=== PATIENT | female | born 1965 | race Caucasian/White ===

== ENCOUNTER 2017-10-18 07:28 | Day surgery (SDC) | payer OTHER, SELFPAY ==
[2017-10-18 07:49] VITALS: BP 124/98; PULSE 85; RESP 16; TEMP 36.4; O2SAT 96; BMI 21.9
--- NOTE | 2017-10-18 09:00 | DCINST_ITS ---
Allergies/Adverse Reactions: Allergies No Known Allergies Allergy (Verified 10/17/17 14:44) Medications to take at Discharge Naproxen Sodium [Aleve] 220 mg PO PRN PRN 10/17/17 Hydrocodone Bitart/Apap 5-325 [Chappell 5MG-325MG] 1 tablet PO Q6H PRN PRN #10 tablet 10/18/17 The following prescriptions were given: Hydrocodone Bitart/Apap 5-325 [Chappell 5MG-325MG] 1 tablet PO Q6H PRN PRN #10 tablet PRN Reason: Pain Primary Care Physician: Care Physician,No Primary [Primary Care Provider] -
[2017-10-18] MEDS: Cefazolin 2 GM in 0.9% Normal Saline 100 ML IV (09:22)
[2017-10-18] MEDS: Bupivacaine Mpf 0.5% 30 ML VIAL (09:52)
--- NOTE | 2017-10-18 10:04 | OP.PCM_ITS ---
Problem List (1) Primary cancer of left female breast Status: Acute Report of Operation Date of Procedure: 10/18/17 Pre-Operative Diagnosis: Metastatic left breast cancer Post-Operative Diagnosis: Metastatic left breast cancer Surgery/Procedure Performed:: Right internal jugular 6 Tamazight PowerPort placement Description of Surgical Findings:: Timeout and informed consent was obtained. 52-year-old female was taken out from placement table. Monitored anesthesia care was provided. Ancef 2 g given intravenous preoperatively. The right neck and chest were sterilely prepped and draped. Ultrasound was used to identify the right internal jugular vein. Under ultrasound guidance 1% lidocaine mixed 50-50 with 0.5% marcaine was used as local anesthetic. Throughout the procedure total 25 cc was used. Local was instilled. Micropuncture needle was inserted. Micropuncture wire inserted. Micropuncture sheath inserted. No 3 5 J-wire was inserted. Local was instilled down upon the chest wall. And an appropriate position midclavicular line second intercostal space transverse incision was created. Electrocautery was used to make a subcutaneous pocket. The tunnel tubing was then tunneled from the chest to the neck. Then the sheath dilator was placed over the wire and confirmed with fluoroscopy. The wire and dilator were removed. The catheter was advanced through the sheath. The sheath was split. The cath was positioned at the SVC atrial junction. The catheter was amputated to length and connected the port secured to the port attachment device. The port was placed within the pocket and secured there with interrupted 2-0 silk. The port site was closed with interrupted 3-0 Vicryl subdermal stitches. The neck was closed with interrupted 5-0 Vicryl subdermal stitches. Steri-Strips Telfa and OpSite dressings applied. Sponge instrument and needle counts were reported the surgeon be correct. Blood loss was minimal. She tolerated the procedure well. She was taken to the recovery or insect condition without apparent complication. Stat portable chest x-ray is pending. Bran Granados M.D., F.A.C.S.
[2017-10-18 10:09] VITALS: BP 124/98; BP 125/97; PULSE 75; RESP 16; TEMP 36.4; O2SAT 94
--- NOTE | 2017-10-18 10:10 | RAD_ITS ---
STUDY: X-RAY CHEST REASON FOR EXAM: Female, 52 years old. Port placement. TECHNIQUE: Single AP portable view of the chest. COMPARISON: Comparison is made with prior study dated October 09, 2017. FINDINGS: A right-sided portacatheter is in situ. The tip is in the proximal portion of the superior vena cava. Stable mild increased markings in the right middle lobe. Stable elevation of the right minor fissure. There is no demonstrated pleural abnormality. Normal size heart. Normal mediastinum and anjel. Normal visualized pulmonary arteries. There is atherosclerotic tortuosity of the aortic arch and descending thoracic aorta. Normal visualized thoracic spine. Normal visualized ribs, clavicles, and shoulders. There is no demonstrated abnormality of the visualized soft tissue structures of the upper abdomen. RAD/Chest 1 View (Portable) IMPRESSION: The tip of the right portacatheter is in the proximal portion of the superior vena cava. Electronically Signed: Edgar Flannery MD at 11:18 EST Tel [phone], Service support ,
[2017-10-18 10:15] VITALS: BP 111/88; BP 124/98; PULSE 75; RESP 16; O2SAT 95
[2017-10-18 10:20] VITALS: BP 117/85; BP 124/98; PULSE 72; RESP 17; O2SAT 94
[2017-10-18 10:23] VITALS: BP 119/78; BP 124/98; PULSE 69; RESP 16; TEMP 36.6; O2SAT 95
[2017-10-18 11:52] VITALS: BP 124/98
== END 2017-10-18 11:52 | disposition home or self-care (01) ==
LOC: SDC 07:28 → AC 07:29
PROVIDERS: Visit Provider Surgery
PROC: (CPT 36571; principal; 2017-10-18 09:00)
DX: C50.012 Malignant neoplasm of nipple and areola, left female breast (principal); C77.3 Secondary and unspecified malignant neoplasm of axilla and upper limb lymph nodes; Z45.2 Encounter for adjustment and management of vascular access device; F17.210 Nicotine dependence, cigarettes, uncomplicated; Z87.01 Personal history of pneumonia (recurrent); Z80.3 Family history of malignant neoplasm of breast
CPT/HCPCS: 00532; 36571; 71045; 77001; J7120; C1788

== ENCOUNTER → 2017-10-20 13:31 | Outpatient (CLI) | payer OTHER, SELFPAY ==
--- NOTE | 2017-10-20 13:34 | ECHOD_ITS ---
Reason For Study: Neoplasm-Pre Chemo Procedure This was a 2D Doppler, Color Flow transthoracic echocardiogram. Exam performed in department. Left Ventricle Normal size and thickness. The estimated ejection fraction is 65 %. Stage 1 diastolic dysfunction. No regional wall motion abnormalities noted. Right Ventricle Normal size and thickness. Normal systolic function. Atria Normal left atrium. Normal right atrium. Normal atrial septum. Mitral Valve The mitral valve is structurally normal. No prolapse or stenosis seen. Tricuspid Valve Normal tricuspid valve. Trivial tricuspid valve insufficiency. Right ventricular systolic pressure estimated to be 33 mmHg. Aortic Valve Trisinus/trileaflet aortic valve. Pulmonic Valve Normal pulmonic valve. Great Vessels Normal aortic root. Normal arch. Normal inferior vena cava. Inferior vena cava collapse with sniff. Pericardium/Pleural No pericardial effusion. MMode/2D Measurements & Calculations LVIDd: 3.4 cm IVSd: 1.1 cm Ao root diam: 2.7 cm LVIDs: 1.9 cm LVPWd: 1.2 cm LA dimension: 3.1 cm RVDd: 3.2 cm FS: 44.2 % LAV(MOD-bp): 36.7 ml LVAd ap4: 27.0 cm2 SV(MOD-sp4): 51.6 ml LAV(MOD-bp) Indexed: 23.1 ml/m2 EDV(MOD-sp4): 77.3 ml LAV(MOD-sp2): 41.6 ml EDV(sp4-el): 80.0 ml LAV(MOD-sp4): 30.5 ml LVAs ap4: 13.3 cm2 ESV(MOD-sp4): 25.8 ml ESV(sp4-el): 23.8 ml EF(MOD-sp4): 66.7 % EF(sp4-el): 70.2 % SV(sp4-el): 56.2 ml LA A4 area: 13.3 cm2 RA A4 area: 12.8 cm2 Time Measurements MV dec time: 0.27 sec Doppler Measurements & Calculations MV A max demetrius: 98.7 cm/sec Lat Peak E' Demetrius: 10.8 cm/sec Med Peak E' Demetrius: 40.9 cm/sec MV V2 max: 90.6 cm/sec MV P1/2t max demetrius: 70.6 cm/sec Ao V2 max: 155.9 cm/sec MV max P.3 mmHg MV P1/2t: 102.5 msec Ao max P.7 mmHg MV V2 mean: 48.1 cm/sec MV dec slope: 201.9 cm/sec2 Ao V2 mean: 98.7 cm/sec MV mean P.1 mmHg MVA(P1/2t): 2.1 cm2 Ao mean P.5 mmHg MV V2 VTI: 21.5 cm Ao V2 VTI: 27.1 cm LV V1 max: 124.0 cm/sec PA V2 max: 120.4 cm/sec TR max demetrius: 262.7 cm/sec LV V1 max P.1 mmHg TR max P.6 mmHg LV V1 mean P.8 mmHg LV V1 mean: 75.9 cm/sec LV V1 VTI: 23.2 cm Interpretation Summary The estimated ejection fraction is 65 %. Stage 1 diastolic dysfunction. Trivial tricuspid valve insufficiency. Right ventricular systolic pressure estimated to be 33 mmHg. There is no comparison study available. Ordering Physician: Carolina Pak Referring Physician: Carolina Pak Performed By: Chandan Weller RCS
== END ==
PROVIDERS: Visit Provider Internal Medicine Hematology & Oncology
DX: C50.912 Malignant neoplasm of unspecified site of left female breast (principal); C79.51 Secondary malignant neoplasm of bone
CPT/HCPCS: 93306

== ENCOUNTER → 2017-10-20 17:30 | Outpatient (CLI) | payer OTHER, SELFPAY ==
--- NOTE | 2017-10-20 15:05 | MRI_ITS ---
STUDY: MRI LUMBAR SPINE WITH AND WITHOUT CONTRAST REASON FOR EXAM: Female, 52 years old. Metastatic breast cancer TECHNIQUE: Standardized fat and water weighted pulse sequences were obtained in the sagittal and axial planes. 6 ml of Gadavist contrast material was administered for the contrast portion of the examination. COMPARISON: None FINDINGS: Normal lumbar lordosis. There is no substantial scoliosis. Normal conus medullaris that terminates at the L1-2 level. Diffuse osseous metastatic disease is present. Confluent lesions are T1 hypointense with mottled postcontrast enhancement. No pathologic compression fractures are seen at this time. No enhancing intracanalicular lesions are seen. No paraspinal masses are seen. Multilevel degenerative disc disease without severe central canal stenosis or evidence of en exiting nerve root impingement. Normal visualized paraspinous soft tissue structures. MRI/Spine Lumbar W/WO Contrast IMPRESSION: Diffuse osseous metastatic disease. No evidence of pathologic compression fracture. No evidence of intrathecal or epidural metastatic disease. Electronically Signed: Hebert Montano MD at 4:09 EST Tel , Service support ,
--- NOTE | 2017-10-20 15:05 | MRI_ITS ---
STUDY: MRI BRAIN WITH AND WITHOUT CONTRAST REASON FOR EXAM: Female, 52 years old. Breast cancer and metastatic disease TECHNIQUE: Standardized multiplanar fat and water weighted pulse sequences were obtained. 6 ml of Gadavist contrast material was administered intravenously for the contrast portion of the examination. COMPARISON: None. FINDINGS: Normal size of the ventricles and extra-axial spaces for the patient's age. Normal white matter tracts of the supratentorial brain. There is no evidence for recent intracranial ischemia or other cause of cytotoxic edema on diffusion weighted imaging (DWI). Normal T2* images of the brain without demonstrated susceptibility artifact. There is no demonstrated hemosiderin stain. Normal bilateral basal ganglia. Normal thalami. There is no extra-axial fluid accumulation. Normal flow voids within the major intracranial circulation suggesting patency by spin echo criteria. Normal venous enhancement. Within the right posterior internal capsule is a focal parenchymal region of enhancement as seen on series 3 image 14 measuring 3 mm consistent with focal metastatic disease. Pituitary gland is prominent and has a convex superior border. Underlying pituitary pathology (hyperplasia, adenoma, etc.) cannot be excluded. Normal tectal plate and pineal gland. Normal midbrain, jose and medulla. Multiple enhancing nodules within the bilateral cerebellar parenchyma are present with the left anterior nodule measuring 8 mm as seen on series 4 image 2 with additional enhancing nodules within the mid bilateral cerebellum as seen on series 3 image 4 and image 3. Normal basal cisterns. Normal bilateral temporal bones. Normal bilateral internal auditory canals. No demonstrated orbital abnormality, within the constraints of a routine brain study. Normal visualized paranasal sinuses. The calvarium is diffusely and abnormally T1 hypointense which could suggest underlying metastatic disease. Normal visualized soft tissue structures. Metastatic lesions are visible in the upper cervical spine with multiple areas of enhancement as seen and coronal series 4 image 14.. MRI/Brain W/WO Contrast IMPRESSION: 1. No evidence of acute intracranial bleed or ischemia. There is right posterior internal capsule 3 mm focal area of enhancement with subcentimeter multiple areas of enhancement within the bilateral cerebellum as above consistent with metastatic disease. Heterogeneous low signal within the calvarium is present which can be seen with infiltrative marrow process though no focal enhancing calvarial lesions are noted. 2. Upper cervical spine multiple areas of osseous enhancement consistent with metastatic disease. Electronically Signed: Mark Rios DO at 10:05 EST , Service support ,
--- NOTE | 2017-10-20 15:06 | MRI_ITS ---
STUDY: MRI THORACIC SPINE WITH AND WITHOUT CONTRAST REASON FOR EXAM: Female, 52 years old. Metastatic breast cancer TECHNIQUE: 6 ml of Gadavist was administered intravenously for the contrast portion of the examination. COMPARISON: None. FINDINGS: Diffuse confluent osseous metastatic disease is present. Lesions are T1 hypointense with mottled postcontrast enhancement. No acute pathologic compression fractures are seen. Several of the thoracic vertebral bodies demonstrate mild ballooning both anteriorly and posteriorly. No severe central canal stenosis. No cord signal abnormalities are seen. No evidence of cord expansion. No epidural metastatic lesions are seen. No significant thoracic disc disease or evidence of exiting thoracic nerve root impingement. A nodule is present in the subcutaneous tissues near the sternal manubrium, measuring 13 mm. MRI/Spine Thoracic W/WO Contrast IMPRESSION: Diffuse osseous metastatic disease without evidence of pathologic fracture. There is some ballooning of multiple thoracic vertebral bodies. No evidence of epidural metastatic disease or focal cord pathology. Electronically Signed: Hebert Montano MD at 4:05 EST Tel , Service support ,
--- NOTE | 2017-10-20 15:06 | MRI_ITS ---
STUDY: MRI CERVICAL SPINE WITH AND WITHOUT CONTRAST REASON FOR EXAM: Female, 52 years old. Metastatic breast cancer TECHNIQUE: Standardized fat and water weighted pulse sequences were obtained in the sagittal and axial following I.V. administration of 6 ml of Gadavist contrast material. COMPARISON: None FINDINGS: Normal foramen magnum and brainstem-cervical cord junction. Normal craniovertebral junction. Normal anterior atlantoaxial articulation. Normal odontoid process. Multiple enhancing cerebellar lesions are present compatible with metastatic disease. There is some ballooning of the T4 vertebral body on the right. There is some ballooning of the T2 vertebral body anteriorly. Normal cervical lordosis. Multiple T1 hypointense and T2 hyperintense bone lesions are present throughout the cervical spine compatible with metastatic disease. These lesions demonstrate patchy postcontrast enhancement. C2-3: Normal endplates. Normal disc height, signal and morphology. Normal central canal and intervertebral neural foramina. C3-4: Normal endplates. Normal disc height, signal and morphology. Normal central canal and intervertebral neural foramina. C4-5: Normal endplates. Normal disc height, signal and morphology. Normal central canal and intervertebral neural foramina. C5-6: Disc osteophyte complex and central disc protrusion with moderate central canal stenosis and ventral cord deformity. C6-7: Central disc protrusion with moderate central canal stenosis and ventral cord deformity. C7-T1: Mild disc osteophyte complex with mild central canal stenosis. No cord signal abnormalities are seen. Normal visualized soft tissue structures. MRI/Spine Cervical W/WO Contrast IMPRESSION: Diffuse osseous metastatic disease. Disc disease with cortical deformities at C5-6 and C6-7. No metastatic lesions are seen in the cord or epidural space. Electronically Signed: Hebert Montano MD at 3:54 EST Tel , Service support ,
== END ==
PROVIDERS: Visit Provider Nurse Practitioner Family
DX: R51 Headache (principal); C50.912 Malignant neoplasm of unspecified site of left female breast
CPT/HCPCS: 70553; 72156; 72157; 72158; A9585

== ENCOUNTER → 2017-10-23 16:16 | Outpatient (CLI) | payer OTHER, SELFPAY ==
--- NOTE | 2017-10-23 16:20 | RAD_ITS ---
STUDY: X-RAY - CERVICAL SPINE REASON FOR EXAM: Female, 52 years old. Neck pain TECHNIQUE: 5 view(s) of the cervical spine were obtained. COMPARISON: None FINDINGS: Normal anterior atlantoaxial articulation. The odontoid process is obscured by the overlying hard palate on the open mouth view. Therefore, it is not fully evaluated by plain film. Normal cervical lordosis. Normal vertebral bodies and endplates. Normal disc space heights. Normal visualized intervertebral neuroforamina. The soft tissue structures are unremarkable. RAD/Cerv Spine 2 or 3 Views IMPRESSION: The odontoid process is obscured by the overlying hard palate on the open mouth view. Therefore, it is not fully evaluated by plain film. Electronically Signed: Victor M Aleman MD at 16:36 EST , Service support ,
== END ==
PROVIDERS: Family Provider Family Medicine; PCP Family Medicine; Visit Provider Anesthesiology Pain Medicine
DX: M54.2 Cervicalgia (principal)
CPT/HCPCS: 72040

== ENCOUNTER → 2017-10-25 14:18 | Outpatient (CLI) | payer OTHER, SELFPAY ==
--- NOTE | 2017-10-25 14:24 | CT_ITS ---
STUDY: CT ABDOMEN AND PELVIS WITH CONTRAST REASON FOR EXAM: Female, 52 years old. Malignant neoplasm. Stage IV breast cancer. RADIATION DOSAGE (If Supplied By Facility): CTDIvol = ( 11.1 ) mGy, DLP = ( 347.88 ) mGycm TECHNIQUE: Transaxial images were obtained from the dome of the diaphragm to the symphysis pubis without oral contrast. 100CC ml of Isovue 300 contrast was administered. Sagittal and coronal images were reconstructed. Individualized dose optimization techniques were used for this CT. COMPARISON: CT of the chest, October 12, 2017. CT of the abdomen and pelvis, July 21, 2009. FINDINGS: And seen are mild emphysematous changes of the lungs. There is no new infiltrate or mass The visualized portions of the heart are within normal limits. Liver is normal in size contour and density. In the dome of the right liver there is a 7 mm hypodensity best seen on image 17 of series 1002. This was not seen on the prior CT and raises concern for metastatic disease. No other liver mass is a similar 5 mm hypodensity in segment 6 of the liver best seen on image 29. Again this is not identified on the prior CT. Normal gallbladder and extrahepatic biliary system. Normal spleen. Normal pancreas. Normal bilateral adrenal glands. Normal right kidney. Normal left kidney. Normal visualized stomach. Normal small intestine. Normal colon. The appendix is visualized and appears normal. There is mild atherosclerotic changes and ectasia of the aorta without aneurysm. There is no dissection. Normal inferior vena cava. Normal retroperitoneum. Normal urinary bladder. Normal uterus and ovaries. There is no pelvic lymphadenopathy. No free air or free fluid is seen within the peritoneal cavity. There is a 1.7 x 0.8 x 1.6 cm soft tissue mass in the subcutaneous left upper abdomen present on the prior study and thought to represent a sebaceous cyst. Abdominal wall is otherwise unremarkable. There is diffuse moth-eaten appearance of the visualized thoracic and lumbar spine. Similar findings are seen within the sacrum, coccyx and pelvis. Lucent areas are also seen in both proximal femora. The findings are most suspicious for metastatic disease. There is no vertebral collapse. These findings were not present on the prior abdominal CT CT/Abdomen/Pelvis W IV Cont ONLY IMPRESSION: 1. Diffuse metastatic disease of the spine and pelvis. 2. Low-attenuation lesions in the right liver. Question metastatic disease 3. Stable mass in the left abdominal wall thought to represent sebaceous cyst. 4. No other evidence of abdominal or pelvic abnormality.. Electronically Signed: Guevara Emanuel DO at 17:03 EST Tel [phone], Service support ,
== END ==
PROVIDERS: Family Provider Family Medicine; PCP Family Medicine; Visit Provider Internal Medicine Hematology & Oncology
DX: C50.912 Malignant neoplasm of unspecified site of left female breast (principal); C77.9 Secondary and unspecified malignant neoplasm of lymph node, unspecified; C79.51 Secondary malignant neoplasm of bone; K76.9 Liver disease, unspecified; R19.02 Left upper quadrant abdominal swelling, mass and lump
CPT/HCPCS: 74176; 74177; Q9967

== ENCOUNTER → 2017-10-27 08:57 | Outpatient (CLI) | payer OTHER, SELFPAY ==
[2017-10-26 10:43] VITALS: BMI 22.3
[2017-10-26 11:21] VITALS: BP 130/99; BMI 22.3
--- NOTE | 2017-10-27 | IMM_PTH ---
PATIENT: KAITY ANTUNEZ LOC: CT U#:[id number] AGE/SX: 60/F ROOM: RE10/27/[address]: Dr. Carolina Pak MD : 1965 BED: DIS: SPEC #: [id number] RECD: 10/30/17 12:59 STATUS: LEATHA REAngélica #: [id number] DELMER: 10/27/17 00:[address]: Carolina Pak DEPT: IMMUNOHISTOCHEMISTRY RECD BY: Beata Barton ENTERED: 10/30/17 13:01 SP TYPE: IMMUNO OTHR DR: No Primary Care Phys Tissues: A - Bone marrow of iliac crest Procedures: Mammoglobin (initial) CK20 (add) CK7 (add) CK8 (add) E-CAD (add) HER2 MAIDA (add) Vimentin (add) GATA3 (add) PHYSICIAN & INSTITUTION [place] [id number] SPECIMEN INFORMATION: Tissue Source: A ? Bone marrow core Clinical Info: Metastatic breast (lobular) CA Specimen Number: [id number] CPT code: 13819, 86400 x7 METHODOLOGY: Deparaffinized sections of prefer/formalin-fixed tissue or PAP/DQ stained slides are incubated with monoclonal/polyclonal antibodies/oligonucleotide probes. Localization is made via biotin free immunoperoxidase method. Appropriate controls are performed and reacted as expected. Results on target cell population are indicated in the following table: RESULTS: ANTIBODY / CLONE RESULT Block A GATA3 (L50-823) positive Mammaglobin (31A5) positive CK8 (92ibgkR12) positive Her-2neu (CB11) positive E-Cad (ECH-6) negative CK7 (OV-TL12/30) positive CK20 (KS20.8) negative Vimentin (V9) * *?Noncontributory These tests were developed and their performance characteristics determined by [facility]. They may not have been cleared or approved by the U.S. Food and Drug Administration. The FDA has determined that such clearance or approval is not necessary. INTERPRETATION: A. Bone marrow core: Consistent with metastatic breast carcinoma. AM:adrienne 10/31/17
--- NOTE | 2017-10-27 | BMB_PTH ---
PATIENT: KAITY ANTUENZ LOC: CT U#:[id number] AGE/SX: 60/F ROOM: RE10/27/[address]: Dr. Carolina Pak MD : 1965 BED: DIS: SPEC #: [id number] RECD: 10/27/17 10:30 STATUS: MALIKAShanique KM #: [id number] DELMER: 10/27/17 00:[address]: Carolina Pak DEPT: BONE MARROW RECD BY: Ana Post ENTERED: 10/27/17 12:00 SP TYPE: BMB JAMISON DR: No Primary Care Phys Tissues: A - Bone marrow, NOS B - Bone marrow, NOS Procedures: PERIPH Decalcification bone/plaque Special Stain Group II PAS Stain (control) Retic (control) Iron Stain (control) [place] Stain (control) Bone Marrow Core Biopsy Iron Stain Bone Marrow HEADER OPERATION: Bone marrow, right iliac crest PRE-OP DIAGNOSIS: Metastatic breast (lobular) cancer TISSUE SUBMITTED: A - Core, B - Smears BONE MARROW DIAGNOSIS Bone marrow biopsy, core and aspiration: Metastatic carcinoma consistent with breast primary. AM:adrienne 10/31/17 COMMENT The bone marrow biopsy consists of extremely minute fragments of bone and bone marrow elements diluted with blood. Present in the specimen are scattered malignant cells consistent with metastatic carcinoma. The bone marrow aspirate smears are markedly hypocellular and hemodilute and contain scattered malignant cells consistent with metastatic carcinoma. Reference is made to the patient?s left breast mass, needle core biopsy (S18255) in which invasive lobular carcinoma, pleomorphic variant, nuclear grade 3 was identified. Reference is also made to the patient?s fine needle aspiration cytology (C18-25) of left breast mass which was positive for malignant cells consistent with metastatic carcinoma. Iron stain with matched control reveals focal stainable iron. Reticulin stain with matched control is noncontributory. PAS stain with matched control is noncontributory. Case has been reviewed in consultation with Dr. Chappell who concurs with the above diagnosis. IDC:SJ Immunohistochemistry ([id number]) supports the above diagnosis. BONE MARROW STUDY Slides are reviewed. BONE MARROW GROSS A - Received is a container labeled with the patient's name and designated right iliac crest. The specimen consists of multiple fragments of blood clot with possible minute fragments of bone measuring in aggregate 1.5 x 0.2 x 0.1 cm. The specimen is totally submitted in one cassette after decalcification. B - Also received are 5 unstained and 1 peripheral stained slides. The unstained slides are submitted for appropriate staining. / NOLAN:adrienne 10/27/17 TC:0 CPT: 62270, 64392, 37693 x2, 39366 x3, 42412
--- NOTE | 2017-10-27 09:10 | CT_ITS ---
PROCEDURE: CT GUIDED BONE marrow biopsy. DATE: October 27, 2017. INDICATION: Female, 52 years old. Metastatic breast cancer. PHYSICIAN: Edgar Flannery M.D. RADIATION DOSAGE (If Supplied By Facility): CTDIvol = ( 15 ) mGy, DLP = ( 329.27 ) mGycm. Individualized dose optimization techniques were utilized. PROCEDURE: The risks, benefits, and alternatives to the procedure were explained to the patient. The specific risk of hemorrhage requiring further treatment or intervention was detailed and accepted. Follow-up instructions were discussed with the patient as well. Written informed consent was obtained. The patient was brought into the CT suite and placed in the supine position. . An appropriate entry site was identified. The overlying skin was prepped and draped in the usual sterile fashion. 1% lidocaine was administered subcutaneously for local anesthesia. Conscious sedation protocol was followed. The patient received 3 mg of Versed and 75 mcg of fentanyl intravenously. The patient was monitored by the department nurse. The constellation was started at 10:16 AM and terminated at 1038. Under CT guidance, a bone marrow biopsy of the anterior iliac bone was performed. The specimens were then placed in the appropriate fluid and transported to the laboratory for analysis. Hemostasis was obtained. The patient tolerated the procedure well without immediate complications. CT/Biopsy/Inj or Needle Placement IMPRESSION: Successful CT guided bone marrow biopsy of the anterior aspect of the right iliac crest., as described above. Electronically Signed: Edgar Flannery MD at 10:59 EST Tel [phone], Service support ,
[2017-10-27 09:14] LABS: Absolute Lymphocyte Count 2.34 X10^3/ul (0.83-4.51); Absolute Neutrophil Count 5.9 X10^3/uL (2.0-7.7); Basophil# 0.04 X10^3/uL; Basophil% 0.4 % (0-1); Eosinophil# 0.16 X10^3/uL; Eosinophils% 1.7 % (0-5); Hematocrit 39.9 % (37-47); Lymphocyte # 2.34 X10^3/ul (4.0); Lymphocyte % 24.9 % (19-41); Mean Corp Hgb Conc 32.6 g/gl (32-36); Mean Corpuscular Hgb 29.6 pg (27.0-32.0); Mean Corpuscular Volume 90.9 fL (81-99); Mean Platelet Vol. 9.4 fl (6.2-12.0); Monocyte# 0.72 X10^3/uL; Monocyte% 7.7 % (0-10); Neutrophil # 5.91 X10^3/uL (2.7-7.7); Neutrophil % 62.7 % (47-70); Platelet Count 272 K/mm3 (150-450); RBC Distribution Width CV 13.1 % (11.6-14.6); RBC Distribution Width SD 42.9 fl (35.1-43.9); Red Blood Count 4.39 M/mm3 (4.2-5.4); White Blood Count 9.4 K/mm3 (4.4-11.0)
[2017-10-27 09:19] LABS: POSITIVE COUNT YES; POSITIVE DIFFERENTIAL NO; POSITIVE MORPHOLOGY YES
[2017-10-27 09:50] LABS: International Normalized Ratio 1.1; Partial Thromboplast Time 34.1 Seconds (24.1-36.2); Prothrombin Time (Protime)PT. 13.4 SECONDS (11.7-14.9)
[2017-10-27 10:06] VITALS: BP 137/80; PULSE 84; RESP 16; TEMP 37.1; O2SAT 93; BMI 23.0
[2017-10-27 10:49] LABS: Bone Marrow Aspiraton SEE PATHOLOGY REPORT
[2017-10-27 12:00] VITALS: BP 137/83; PULSE 83; RESP 16; O2SAT 96
[2017-10-27 15:27] LABS: Pathologist Review Reviewed
== END ==
PROVIDERS: Visit Provider Internal Medicine Hematology & Oncology
DX: C79.51 Secondary malignant neoplasm of bone (principal); C79.52 Secondary malignant neoplasm of bone marrow; C50.912 Malignant neoplasm of unspecified site of left female breast; K76.89 Other specified diseases of liver
CPT/HCPCS: 38221; 36415; 77012; 85025; 85610; 85730; 88305; 88311; 88313; 88341; 88342; 99156; 99157; J7040; A4216

== ENCOUNTER → 2017-10-30 07:32 | Outpatient (CLI) | payer OTHER, SELFPAY ==
[2017-10-26 11:21] VITALS: BMI 22.3
[2017-10-27 10:06] VITALS: BMI 23.0
[2017-10-27 12:00] VITALS: BP 137/83
--- NOTE | 2017-10-30 07:34 | NM_ITS ---
CLINICAL: 52-year-old female with reported history of carcinoma of the breast. WHOLE BODY 99m Tc MDP RADIONUCLIDE BONE SCINTIGRAPHY COMPARISON: CT of the abdomen-pelvis report 10/25/2017, CT of the chest report 10/12/2017, MRI of the cervical, thoracic and lumbar spine reports 10/20/2017 FINDINGS: Following the intravenous administration of 20.2 mCi of 99m Tc MDP, whole body bone images reveal: 1. Multiple foci of increased radiopharmaceutical concentration are demonstrated in the visualized axial skeletal structures, too many to individually articulate to include multiple bilateral ribs, cervical, thoracic and lumbar vertebra, right-left scapula, the bilateral hemipelvis, sternum, as well as focally apparent in the right-left proximal humeral metaphyses, the right proximal-mid humeral diaphysis, the bilateral proximal femoral and distal femoral metaphyses, right-left middistal femoral diaphysis, the right proximal femoral diaphysis, the right proximal tibial metaphysis, the right frontal calvarium. 2. The remaining skeletal structures are scintigraphically unremarkable with normal-appearing renal images and urinary bladder activity identified. An increase in uptake is demonstrated in the bilateral maxillary most consistent with periodontal disease and/or periostitis. NM/Bone Scan Whole Body IMPRESSION: 1. The increase in radiopharmaceutical concentration identified in the appendicular and axial skeletal structures, right frontal calvarium is most consistent with diffuse skeletal metastatic disease. Electronically Signed: Juan Blount DO at 11:25 EST Tel , Service support ,
== END ==
PROVIDERS: Family Provider Family Medicine; PCP Family Medicine; Visit Provider Internal Medicine Hematology & Oncology
DX: C50.912 Malignant neoplasm of unspecified site of left female breast (principal); C77.9 Secondary and unspecified malignant neoplasm of lymph node, unspecified; C79.51 Secondary malignant neoplasm of bone
CPT/HCPCS: 78306

== ENCOUNTER → 2018-01-29 10:19 | Outpatient (CLI) | payer OTHER, MEDICAID, SELFPAY ==
[2017-10-26 11:21] VITALS: BMI 22.3
--- NOTE | 2018-01-29 10:22 | RAD_ITS ---
STUDY: X-RAY - LUMBAR SPINE REASON FOR EXAM: Female, 52 years old. Low back pain TECHNIQUE: 3 view(s) of the lumbar spine were obtained. COMPARISON: Bone scan dated 10/30/17 FINDINGS: There is an exaggerated lumbar lordosis. There is no substantial scoliosis. There is a normal alignment of the vertebrae. There is multilevel endplate spondylosis of the lumbar vertebrae. There is multi-level degenerative disc disease with multi-level disc space narrowing. Diffuse osseous metastatic disease. Chronic appearing compression fractures of T11 and T12 and L1. The soft tissue structures are unremarkable. RAD/Lumbar Spine 2 or 3 Views IMPRESSION: Degenerative changes of the spine, as detailed above. Osseous metastatic disease Electronically Signed: Ashutosh Sofia DO at 11:35 EDT Tel , Service support ,
--- NOTE | 2018-01-29 10:33 | RAD_ITS ---
STUDY: X-RAY - THORACIC SPINE REASON FOR EXAM: Female, 52 years old. Thoracic spine pain. Metastatic breast cancer TECHNIQUE: 3 view(s) of the thoracic spine were obtained. COMPARISON: Bone scan dated October 30, 2017 FINDINGS: Normal kyphosis of the thoracic spine. There is no substantial scoliosis. There is multilevel endplate spondylosis of the thoracic vertebrae. There is multilevel disc space narrowing of the thoracic spine. Diffuse osseous metastatic disease The soft tissue structures are unremarkable. RAD/Thoracic Spine 3 Views IMPRESSION: Diffuse osseous metastatic disease and degenerative change Electronically Signed: Ashutosh Sofia DO at 11:35 EDT Tel , Service support ,
--- NOTE | 2018-01-29 12:43 | MRI_ITS ---
STUDY: MRI BRAIN WITH AND WITHOUT CONTRAST REASON FOR EXAM: Female, 52 years old. Breast cancer staging TECHNIQUE: Standardized multiplanar fat and water weighted pulse sequences were obtained. 7 ml of Gadavist contrast material was administered intravenously for the contrast portion of the examination. COMPARISON: October 14, 2017 FINDINGS: Normal size of the ventricles and extra-axial spaces for the patient's age. Normal white matter tracts of the supratentorial brain. Normal bilateral basal ganglia. Normal thalami. There is no extra-axial fluid accumulation. Normal flow voids within the major intracranial circulation suggesting patency by spin echo criteria. Normal venous enhancement. There is a tiny enhancing nodule within the left ventral mesencephalon and slightly larger enhancing nodule in the left occipital lobe which may be consistent with metastatic disease. There is a similar-appearing although smaller nodule in the right parietal lobe. There appear to be multiple small enhancing densities in the cerebellar hemispheres some of which are felt to be artifactual Normal sella turcica, pituitary gland, infundibular stalk, optic chiasm and hypothalamus. Normal tectal plate and pineal gland. Normal midbrain, jose and medulla. . Normal basal cisterns. Normal bilateral temporal bones. Normal bilateral internal auditory canals. No demonstrated orbital abnormality, within the constraints of a routine brain study. Normal visualized paranasal sinuses. Normal calvarium and skull base. Normal visualized soft tissue structures. Normal visualized upper cervical spine. The previously noted lesion in the right internal capsule not visualized on current study. The other supratentorial nodules are new findings and there are increased number of lesions in the cerebellum The number of enhancing lesions has increased since prior study MRI/Brain W/WO Contrast IMPRESSION: Findings consistent with brain metastasis which have increased in number since previous study. Electronically Signed: Gilles Doan MD at 22:24 EDT , Service support ,
== END ==
DX: C79.31 Secondary malignant neoplasm of brain (principal); C79.51 Secondary malignant neoplasm of bone; M51.36 Other intervertebral disc degeneration, lumbar region; M47.895 Other spondylosis, thoracolumbar region; M48.05 Spinal stenosis, thoracolumbar region
CPT/HCPCS: 70553; 72072; 72100; A9585

== ENCOUNTER → 2018-02-20 09:05 | Outpatient (CLI) | payer OTHER, MEDICAID, SELFPAY ==
[2017-10-26 11:21] VITALS: BMI 22.3
--- NOTE | 2018-02-20 09:10 | ECHOCS_ITS ---
Reason For Study: malignant neoplasm Procedure This was a 2D Doppler, Color Flow transthoracic echocardiogram. The exam was of adequate technical quality. Exam performed in department. Left Ventricle Normal LV size. Left ventricular systolic function is normal. The estimated ejection fraction is 65 %. Normal diastology for age. No regional wall motion abnormalities noted. Right Ventricle Normal RV size. Normal systolic function. Atria Normal left atrium. Normal right atrium. No doppler evidence for ASD. Mitral Valve There is no mitral annular calcification. Normal mitral valve. Trivial mitral valve insufficiency. Tricuspid Valve Normal tricuspid valve. Mild tricuspid valve insufficiency. Right ventricular systolic pressure estimated to be 26 mmHg. Aortic Valve Trisinus/trileaflet aortic valve. Normal aortic valve. Pulmonic Valve The pulmonic valve is not well visualized. Trivial pulmonic valve insufficiency. Great Vessels Normal sized aortic root. Pericardium/Pleural No pericardial effusion. MMode/2D Measurements & Calculations LVIDd: 4.0 cm IVSd: 0.97 cm Ao root diam: 3.2 cm LVIDs: 2.8 cm LVPWd: 1.2 cm LA dimension: 3.5 cm RVDd: 3.4 cm FS: 31.6 % LAV(MOD-bp): 41.4 ml LA A4 area: 14.7 cm2 RA A4 area: 11.2 cm2 LAV(MOD-bp) Indexed: 25.5 ml/m2 LAV(MOD-sp2): 43.5 ml LAV(MOD-sp4): 35.4 ml Time Measurements MV dec time: 0.20 sec Doppler Measurements & Calculations MV E max demetrius: 88.4 cm/sec Lat Peak E' Demetrius: 10.7 cm/sec Med Peak E' Demetrius: 9.6 cm/sec MV A max demetrius: 77.6 cm/sec E/E' lat: 8.3 E/E' med: 9.2 MV E/A: 1.1 MV V2 max: 113.6 cm/sec MV P1/2t max demetrius: 112.7 cm/sec Ao V2 max: 159.2 cm/sec MV max P.2 mmHg MV P1/2t: 63.6 msec Ao max P.1 mmHg MV V2 mean: 61.8 cm/sec MV dec slope: 518.9 cm/sec2 Ao V2 mean: 100.4 cm/sec MV mean P.8 mmHg MVA(P1/2t): 3.5 cm2 Ao mean P.6 mmHg MV V2 VTI: 30.0 cm Ao V2 VTI: 28.2 cm LV V1 max: 115.3 cm/sec PA V2 max: 122.3 cm/sec TR max demetrius: 238.6 cm/sec LV V1 max P.3 mmHg TR max P.8 mmHg LV V1 mean P.7 mmHg LV V1 mean: 75.8 cm/sec LV V1 VTI: 24.2 cm Interpretation Summary Left ventricular systolic function is normal. The estimated ejection fraction is 65 %. Trivial mitral valve insufficiency. Mild tricuspid valve insufficiency. Trivial pulmonic valve insufficiency. Right ventricular systolic pressure estimated to be 26 mmHg. Normal diastology for age. Ordering Physician: Carolina Pak Referring Physician: Carolina Pak Performed By: Chandan Weller RCS
== END ==
PROVIDERS: Visit Provider Internal Medicine Hematology & Oncology
DX: Z79.899 Other long term (current) drug therapy (principal); C50.912 Malignant neoplasm of unspecified site of left female breast; C79.51 Secondary malignant neoplasm of bone; C77.9 Secondary and unspecified malignant neoplasm of lymph node, unspecified; C79.31 Secondary malignant neoplasm of brain; R60.0 Localized edema
CPT/HCPCS: 93306; 93970

== ENCOUNTER → 2018-02-20 15:51 | Outpatient (CLI) | payer OTHER, SELFPAY ==
[2017-10-26 11:21] VITALS: BMI 22.3
--- NOTE | 2018-02-20 16:05 | VDLE_ITS ---
Reason For Study: LEG SWELLING RIGHT LEFT GSV is normal. GSV is normal. CFV is compressible, spontaneous, phasic, CFV is compressible, spontaneous, phasic, competent and demonstrates normal competent, and demonstrates normal augmentation. augmentation. FV is compressible, spontaneous, phasic, FV is compressible, spontaneous, phasic, competent and demonstrates normal competent and demonstrates normal augmentation. augmentation. POP V is compressible, spontaneous, phasic, POP V is compressible, spontaneous, phasic, competent and demonstrates normal competent and demonstrates normal augmentation. augmentation. T/P Trunk is compressible. T/P Trunk is compressible. PTV is compressible. PTV is compressible. RT PerV is compressible. LT PerV is compressible. Procedure Exam performed in department. A preliminary report was called and/or faxed to Elizabeth Medrano. Interpretation Summary No evidence for acute deep venous thrombosis bilateral lower extremities with patent and compressible bilateral great saphenous veins. Ordering Physician: Mar Medrano Referring Physician: Mar Medrano Performed By: Madiha Starks RVT
== END ==
PROVIDERS: Visit Provider Nurse Practitioner Family
DX: R60.0 Localized edema (principal); C50.912 Malignant neoplasm of unspecified site of left female breast
CPT/HCPCS: 93970

== ENCOUNTER → 2018-04-23 15:37 | Outpatient (CLI) | payer MEDICAID, OTHER, SELFPAY ==
[2017-10-26 11:21] VITALS: BMI 22.3
--- NOTE | 2018-04-23 15:49 | MRI_ITS ---
STUDY: MRI BRAIN WITH AND WITHOUT CONTRAST REASON FOR EXAM: Female, 52 years old. Headaches and nausea with breast cancer treated TECHNIQUE: Standardized multiplanar fat and water weighted pulse sequences were obtained. 6 ml of Gadavist contrast material was administered intravenously for the contrast portion of the examination. COMPARISON: January 29, 2018 FINDINGS: Normal size of the ventricles and extra-axial spaces for the patient's age. Minor periventricular white matter ischemic changes without evidence for acute infarct.. Mild chronic ischemic changes within the jose Normal bilateral basal ganglia. Normal thalami. There is no extra-axial fluid accumulation. Normal flow voids within the major intracranial circulation suggesting patency by spin echo criteria. Normal venous enhancement. There is no enhancing intra-axial or extra-axial abnormality. Normal sella turcica, pituitary gland, infundibular stalk, optic chiasm and hypothalamus. Normal tectal plate and pineal gland. Normal midbrain, and medulla. Small homogeneously enhancing lesions in the right cerebellar hemisphere.. Normal basal cisterns. Normal bilateral temporal bones. Normal bilateral internal auditory canals. Fluid signal within the right mastoid air cells consistent with inflammatory disease No demonstrated orbital abnormality, within the constraints of a routine brain study. Normal visualized paranasal sinuses. Normal calvarium and skull base. Normal visualized soft tissue structures. Normal visualized upper cervical spine. There are fewer metastatic nodules noted when compared with previous study MRI/Brain W/WO Contrast IMPRESSION: Mild chronic periventricular white matter and pontine ischemic changes without evidence for acute infarct. Persistent small cerebellar metastasis however there is generalized interval improvement in the number of metastatic lesions since previous exam Electronically Signed: Gilles Doan MD at 19:57 EDT , Service support ,
== END ==
PROVIDERS: Family Provider Family Medicine; PCP Family Medicine
DX: C79.31 Secondary malignant neoplasm of brain (principal); R11.2 Nausea with vomiting, unspecified
CPT/HCPCS: 70553; A9585

== ENCOUNTER → 2018-04-26 10:14 | Outpatient (CLI) | payer MEDICAID, OTHER, SELFPAY ==
[2017-10-26 11:21] VITALS: BMI 22.3
--- NOTE | 2018-04-26 10:20 | NM_ITS ---
CLINICAL: 52-year-old female with reported history of carcinoma of the breast metastatic to bone. WHOLE BODY 99m Tc MDP RADIONUCLIDE BONE SCINTIGRAPHY COMPARISON: Previous whole body bone scintigraphy study dated 10/30/2017 FINDINGS: Following the intravenous administration of 24.6 mCi of 99m Tc MDP, whole body bone images reveal: 1. Multifocal increased radiopharmaceutical concentration remains evident throughout the appendicular and axial skeletal structures, currently demonstrated in the periorbital and right-left frontal calvarium with apparent coalescence in multiple locations. 2. An increase in tracer concentration is currently defined in the bilateral elbow and wrist articulations. 3. The remaining skeletal structures are scintigraphically unremarkable with normal-appearing renal images and urinary bladder activity identified. NM/Bone Scan Whole Body IMPRESSION: 1. The multiple foci of increased radiopharmaceutical concentration remaining disseminated throughout the axial and appendicular skeleton, the right-left calvarium is commensurate with diffuse skeletal metastatic disease. 2. Degenerative arthritis appears currently expressed in the right and left elbow and wrist articulations. 3. Overall compared to the previous whole body bone scintigraphy study dated 10/30/2017, there is continued demonstration of diffuse skeletal metastatic disease more confluent on the current examination in multiple locations as defined above. Electronically Signed: Juan Blount DO at 22:09 EDT Tel , Service support ,
--- NOTE | 2018-04-26 10:50 | ECHOD_ITS ---
Reason For Study: HIGH RISK MEDS Procedure This was a 2D Doppler, Color Flow transthoracic echocardiogram. The exam was of adequate technical quality. Exam performed in department. Left Ventricle Normal LV size. Left ventricular systolic function is normal. The estimated ejection fraction is 65 %. Normal diastology for age. No regional wall motion abnormalities noted. Right Ventricle Normal RV size. Normal systolic function. Atria Normal left atrium. Normal right atrium. No doppler evidence for ASD. Mitral Valve There is no mitral annular calcification. Normal mitral valve. Trivial mitral valve insufficiency. Tricuspid Valve Normal tricuspid valve. Mild tricuspid valve insufficiency. Right ventricular systolic pressure estimated to be 34 mmHg. Aortic Valve Trisinus/trileaflet aortic valve. Normal aortic valve. Pulmonic Valve The pulmonic valve is not well visualized. Trivial pulmonic valve insufficiency. Great Vessels Normal sized aortic root. Pericardium/Pleural No pericardial effusion. MMode/2D Measurements & Calculations LVIDd: 3.7 cm IVSd: 0.92 cm Ao root diam: 2.8 cm LVIDs: 2.6 cm LVPWd: 0.84 cm LA dimension: 2.8 cm FS: 28.9 % LAV(MOD-bp): 30.5 ml LVAd ap4: 28.0 cm2 SV(MOD-sp4): 49.8 ml LAV(MOD-bp) Indexed: 19.5 ml/m2 EDV(MOD-sp4): 79.2 ml LAV(MOD-sp2): 35.0 ml EDV(sp4-el): 82.7 ml LAV(MOD-sp4): 27.1 ml LVAs ap4: 15.4 cm2 ESV(MOD-sp4): 29.4 ml ESV(sp4-el): 30.6 ml EF(MOD-sp4): 62.9 % EF(sp4-el): 63.0 % SV(sp4-el): 52.0 ml LA A4 area: 12.4 cm2 RA A4 area: 11.0 cm2 Time Measurements MV dec time: 0.23 sec Doppler Measurements & Calculations MV E max demetrius: 69.1 cm/sec Lat Peak E' Demetrius: 10.9 cm/sec Med Peak E' Demetrius: 7.9 cm/sec MV A max demetrius: 66.4 cm/sec E/E' lat: 6.4 E/E' med: 8.8 MV E/A: 1.0 Ao V2 max: 106.8 cm/sec LV V1 max: 100.6 cm/sec PA V2 max: 92.9 cm/sec Ao max P.6 mmHg LV V1 max P.0 mmHg TR max demetrius: 278.9 cm/sec TR max P.1 mmHg Interpretation Summary Left ventricular systolic function is normal. The estimated ejection fraction is 65 %. Trivial mitral valve insufficiency. Mild tricuspid valve insufficiency. Trivial pulmonic valve insufficiency. Right ventricular systolic pressure estimated to be 34 mmHg. Normal diastology for age. Ordering Physician: Carolina Pak Referring Physician: Carolina Pak Performed By: Julienne Calvert RDCS
== END ==
PROVIDERS: Visit Provider Internal Medicine Hematology & Oncology
DX: C50.912 Malignant neoplasm of unspecified site of left female breast (principal); C79.31 Secondary malignant neoplasm of brain; C79.51 Secondary malignant neoplasm of bone; Z79.899 Other long term (current) drug therapy
CPT/HCPCS: 78306; 93306

== ENCOUNTER 2018-04-29 11:59 | Inpatient (IN) | payer MEDICAID, OTHER, SELFPAY ==
[2017-10-26 11:21] VITALS: BMI 22.3
[2018-04-29 12:01] VITALS: BP 141/74; PULSE 127; RESP 18; TEMP 36.1; O2SAT 97; BMI 25.4
--- NOTE | 2018-04-29 12:19 | EKG12_ITS ---
Test Reason : NAUSEA Blood Pressure : / mmHG Vent. Rate : 097 BPM Atrial Rate : 097 BPM P-R Int : 140 ms QRS Dur : 080 ms QT Int : 334 ms P-R-T Axes : 069 086 065 degrees QTc Int : 424 ms Normal sinus rhythm Normal ECG Confirmed by MAYRA DUMONT, DAVID ([id number]), editor in chief MILTON DESOUZA ([id number] on 05/02/2018 10:50:50 AM Referred By: SMOOTH Confirmed By:DAVID NUNEZ MD
--- NOTE | 2018-04-29 12:40 | ED.DCSUM_ITS ---
- ER Visit Summary Date of Service: 04/29/18 Chief Complaint: [] Fever chemotherapy radiation therapy to brain metastatic breast cancer vomiting History of Present Illness: The patient is a 52 F [] patient has history of metastatic breast cancer diagnosed in September 2017, she was stage IV metastasis to lymph nodes later to brain, she had biopsy in the left breast, then metastases to the brain she ended up having radiation therapy locally at [place] also targeted radiation brain therapy at [facility] she last had chemotherapy April 11 approximately, she remains stage IV by her history she indicates she has had fevers and now she has had protracted vomiting and diarrhea she presents for evaluation no obvious other exposures, no skin rashes Physical Examination: [] She is resting comfortably in the bed her vital signs are within normal range family members had a dog in the room I explained to him that given her concern for neutropenia the fact that we are following neutropenic precautions it is best that the animal be removed from her room and the family agreed took the dog to the waiting room She is awake and alert she has no hair her HEENT is unremarkable nose and throat are clear the neck is supple the lungs are clear the heart tones are unremarkable port right chest is nontender the abdomen is soft and nontender upper lower extremities unremarkable neurologic she is awake moving all 4 She has had intermittent vomiting with this disease process she recently had multiple screening labs including brain MRI and other studies for prognosis Test Results: [] Emergency Department Course and Treatment: [] There is a concern for neutropenia given the fevers and her recent therapy etc. we will follow neutropenic precautions cultures are obtained management of her vomiting screening labs will review the studies to see if there is any signs of [employer] causes to her vomiting such as edema or shift, in fact reviewing the MRI recently done 04/23/2018 shows interval improvement of the lesions no other gross abnormality see that report Patient white count returns at 27,000, her rest of her labs are generally unremarkable for her see those reports her UA is pending chest x-ray shows no obvious source of infection, she is remained A febrile here normotensive, we have obtained cultures, IV antibiotics have been started IV fluids and we have asked the hospitalist see the patient for admission Treatment Plan: [] Disposition: [] Admit stable Impression: [] Febrile illness, history of metastatic breast cancer, chemotherapy and radiation therapy This note was generated with [employer] software. It may contain incorrect words, spelling, and punctuation that were not noted in review of the chart prior to signing ED Disposition - Plan for ED Patient: Chief Complaint: Nausea/Vomiting/Diarrhea Referrals: Care Physician,No Primary [Primary Care Provider] -
[2018-04-29] MEDS: 0.9% Normal Saline 1,000 ML 125 ML IV (12:57)
[2018-04-29] MEDS: Ondansetron 4 MG/2 ML Vial IV ×2 (12:57→17:22)
[2018-04-29 13:17] LABS: Absolute Lymphocyte Count 0.59 X10^3/ul (0.83-4.51); Absolute Neutrophil Count 23.8 X10^3/uL (2.0-7.7); Basophil# 0.04 X10^3/uL; Basophil% 0.1 % (0-1); Eosinophil# 0.01 X10^3/uL; Hematocrit 44.9 % (37-47); Hemoglobin 14.5 g/dl (12.0-15.0); Lymphocyte # 0.59 X10^3/ul (4.0); Lymphocyte % 2.2 % (19-41); Mean Corp Hgb Conc 32.3 g/gl (32-36); Mean Corpuscular Hgb 31.3 pg (27.0-32.0); Mean Corpuscular Volume 96.8 fL (81-99); Mean Platelet Vol. 9.4 fl (6.2-12.0); Monocyte# 2.12 X10^3/uL; Monocyte% 7.9 % (0-10); Neutrophil # 23.83 X10^3/uL (2.7-7.7); Neutrophil % 89.3 % (47-70); Platelet Count 290 K/mm3 (150-450); RBC Distribution Width CV 14.1 % (11.6-14.6); RBC Distribution Width SD 48.8 fl (35.1-43.9); Red Blood Count 4.64 M/mm3 (4.2-5.4); White Blood Count 26.7 K/mm3 (4.4-11.0)
[2018-04-29 13:19] LABS: Differential Indicated SCAN CRITERIA MET; POSITIVE COUNT NO; POSITIVE DIFFERENTIAL YES; POSITIVE MORPHOLOGY NO
[2018-04-29 13:29] LABS: AST(SGOT) 15 U/L (15-37); Alanine Aminotransfer ALT/SGPT 18 U/L (13-56); Albumin, Serum 3.7 g/dL (3.2-5.0); Alkaline Phosphatase 83 U/L (45-117); Anion Gap 8 (5-15); BUN 6 mg/dL (7-18); Bilirubin, Direct 0.07 mg/dL (0.00-0.30); Calcium,Total 9.2 mg/dL (8.5-10.1); Chloride 104 mmol/L (98-107); Creatinine, Serum 0.67 mg/dL (0.55-1.02); Differential Comment SCANNED; EST Glomerular Filtration Rate 99 mL/min (>60); Est Glom Filt Rate - Afr Amer 119 mL/min (>60); Estimated Creatinine Clearance 72.15 ml/min; Globulin 3.9 g/dL (2.2-4.2); Glucose 104 mg/dL (74-106); Lipase 146 U/L (73-393); Potassium 3.6 mmol/L (3.5-5.1); Protein, Total 7.6 g/dL (6.4-8.2); Sodium Level 138 mmol/L (136-145)
--- NOTE | 2018-04-29 13:33 | RAD_ITS ---
STUDY: X-RAY CHEST REASON FOR EXAM: Female, 52 years old. Shortness of breath. TECHNIQUE: Single AP portable view of the chest. COMPARISON: 18 October 2017 FINDINGS: Right port in place with tip overlying the mid SVC. The lungs are clear and expanded. There is no demonstrated pleural abnormality. Normal size heart. Normal mediastinum and anjel. Normal visualized pulmonary arteries. Normal visualized aortic arch and descending thoracic aorta. Normal visualized thoracic spine. Normal visualized ribs, clavicles, and shoulders. There is no demonstrated abnormality of the visualized soft tissue structures of the upper abdomen. RAD/Chest 1 View (Portable) IMPRESSION: No evidence of acute cardiopulmonary process. Electronically Signed: Mark Rios DO at 13:50 EDT , Service support ,
[2018-04-29 13:34] LABS: Lactic Acid 1.2 mmol/L (0.4-2.0)
[2018-04-29 13:49] VITALS: PULSE 110; RESP 16
[2018-04-29] MEDS: proMETHazine 25 MG/ML Syringe 12.5 MG IV (14:41)
[2018-04-29 14:45] VITALS: BP 136/91; PULSE 94; RESP 16
[2018-04-29 15:10] LABS: Red Blood Cells-Urine 0 SEEN /hpf (0-5)
[2018-04-29 15:22] LABS: Color, Urine Yellow (Yellow); Glucose, Dipstick Normal (Normal); Ketone-Dipstick 5 mg/dl (Negative); Leukocyte Esterase-Dipstick 500 /ul (Negative); Nitrite-Dipstick Positive (Negative); Occult Blood-Urine 10 /ul (Negative); Protein-Dipstick 30 mg/dl (Negative); Urine Clarity Cloudy (Clear); Urine Urobilinogen 1 mg/dl (Normal)
[2018-04-29 15:23] LABS: Urine Bilirubin Dipstick 1 mg/dL (Negative)
[2018-04-29 15:30] LABS: Squamous Epithelial Cells - UA 5-10 SEEN /hpf (5-10); Transitional Epithelial - Ur 0-5 SEEN /hpf (0-5); White Blood Cells 10-25 SEEN /hpf (0-5)
[2018-04-29 15:31] LABS: Bacteria 3+ /hpf (None Seen); Mucous, Urine 1+ /hpf (<or=2+)
[2018-04-29 15:32] LABS: Hyaline Cast 5-10 SEEN /lpf (0-5)
--- NOTE | 2018-04-29 15:35 | PCM.HP.STD ---
Problem List (1) Nausea & vomiting Status: Acute (2) SIRS (systemic inflammatory response syndrome) Status: Acute History of Present Illness Date of Admission: 04/29/18 Chief Complaint: intractable nausea vomiting. The patient is a 52 year old F presents with intractable N/V. N/V have been ongoing for months. Subjectively worse since WBR. Eats very little: 2 Pop Tarts in past 8 days. No taste, but can smell still. Had temp this AM of 100.2. No SOB. No congestion. Pt also has abdominal pain that is epigastric radiates down to umbilicus.[] Past Medical History Past Medical History (Chronic Problems): Chronic Problems (Last Reviewed 04/19/18 @ 15:01 by Georgia Gan) Anemia (Chronic) COPD (chronic obstructive pulmonary disease) (Chronic) History of tubal ligation (Chronic) Brain metastases (Chronic) Cerebral aneurysm (Chronic) Primary cancer of left female breast (Chronic) Regional lymph node metastasis present (Chronic) Bone metastases (Chronic) Medical History: Medical History (Last Reviewed 04/29/18 @ 15:39 by Iglesia Mueller DO) Primary cancer of left female breast (Chronic) C50.912 Regional lymph node metastasis present (Chronic) C77.9 Bone metastases (Chronic) C79.51 Pneumonia J18.9 port placement Allergies No Known Allergies Allergy (Verified 04/29/18 12:00) Home Medications: Ambulatory Orders Medication Instructions Recorded Hydrocodone Bitart/Apap 5-325 1 tablet PO Q6H PRN PRN #10 tablet 10/18/17 [[place] 5MG-325MG] Dexamethasone 4 mg PO BID #30 tab 10/19/17 Lidocaine/Prilocaine 30 gm TP DAILY PRN PRN #1 cream..g. 10/19/17 [Lidocaine-Prilocaine Cream] Acetaminophen [Tylenol] 325 mg PO PRN PRN 02/13/18 Loperamide [Imodium] 2 mg PO Q2H PRN PRN 02/13/18 Senna [Senokot] 1 tablet PO DAILY PRN PRN 02/13/18 Loratadine/Pseudoephedrine 1 each PO UD 04/10/18 [Claritin-D 12 Hour Tablet] Fentanyl 1 each TD 04/19/18 Ondansetron [Zofran Odt] 8 mg PO Q8H PRN PRN 10 Days #30 tab 04/19/18 Fentanyl [Fentanyl] 25 mcg TOPICAL Q72H 04/29/18 Surgical History: Surgical History (Last Reviewed 04/29/18 @ 15:39 by Iglesia Mueller DO) History of section Z98.891 Hx of tonsillectomy Z98.890, Z90.89 Smoking Status: Former smoker - quit September 2017 Tobacco Use: Non-smoker Alcohol: None Drugs: None - *Family History Maternal Family History: Family History (Last Reviewed 04/19/18 @ 15:01 by Georgia Gan) Mother Heart disease Father Heart disease Aunt Breast cancer Review of Systems Constitutional: Reports: Anorexia, Chills, Fever. Denies: Night Sweats Eyes: Reports: Blurred vision. Denies: Double vision HEENT: Denies: Head Aches, Sinus Congestion, Sinus Drainage Cardiovascular: Denies: Chest Pain, Palpitations Respiratory: Denies: Cough, Shortness of breath at rest, Sputum production Gastrointestinal: Reports: Abdominal Pain, Nausea, Vomiting. Denies: Diarrhea Genitourinary: Denies: Dysuria Musculoskeletal: Denies: Arm Pain, Back Pain, Foot Pain, Hand Pain Skin: Denies: Rash, Wounds Neurological: Reports: Blurred vision. Denies: Balance problems, Double vision, Slurred speech, Confusion Psychiatric: Denies: Anxiety, Depression Hematologic/ Lymphatic: Reports: Easy Bleeding. Denies: Easy Bruising, Hx of blood clot Comment: All ROS negative except as mentioned above and in the HPI. VTE Information - Inpt Only VTE Present on Admission: No VTE Mechan Device Prophylaxis: None VTE Pharm Prophylaxis ordered?: Yes Patient Problems: Active and Suspected Problems (Last Reviewed 04/19/18 @ 15:01 by Georgia Gan) Nausea & vomiting (Acute) SIRS (systemic inflammatory response syndrome) (Acute) - Physical Exam General: Alert, Cooperative HEENT: Atraumatic, Normocephalic Oral: Moist Mucosa, No Gingival or Mucosal Lesions/ Ulcerations Neck: No Nodes, Thyroid Normal Size and Texture Lungs: Clear to auscultation, Normal air movement, No rhonchi, No wheeze Cardiovascular: Regular rate, Regular Rhythm, Normal S1, Normal S2, No murmurs Abdomen: Bowel Sounds Present, Soft, Non-Distended, Tender - epigastric Extremities: No edema, No Calf Tenderness Skin: No rashes, No breakdown Musculoskeletal: No Tenderness to Palpation of Joints or Extremities, No Muscle Wasting Neurological: Neuro grossly intact, Muscle tone normal Psych/Mental Status: Normal Affect, Appropriate Vital Signs Temp Pulse Resp BP Pulse Ox 36.1 C L 94 16 136/91 H 97 04/29/18 12:01 04/29/18 14:45 04/29/18 14:45 04/29/18 14:45 04/29/18 12:01 Oxygen Delivery Method Room Air Weight: 58.967 kg Body Mass Index (BMI) 25.4 Laboratory Tests Past 24 Hrs 04/29/18 04/29/18 04/29/18 12:50 12:50 12:50 WBC 26.7 H RBC 4.64 Hgb 14.5 Hct 44.9 MCV 96.8 MCH 31.3 MCHC 32.3 RDW 14.1 RDW Differential 48.8 H Plt Count 290 MPV 9.4 Immature Gran % (Auto) 0.500 Neut % (Auto) 89.3 H Lymph % (Auto) 2.2 L [place] % (Auto) 7.9 Eos % (Auto) 0.0 Baso % (Auto) 0.1 Absolute Neuts (auto) 23.8 H Absolute Lymphs (auto) 0.59 L Total Counted Not Reportable Differential Comment SCANNED Sodium 138 Potassium 3.6 Chloride 104 Carbon Dioxide 26.0 Anion Gap 8 BUN 6 L Creatinine 0.67 Estim Creat Clear Calc 72.15 Est GFR (MDRD) Af Amer 119 Est GFR (MDRD) Non-Af 99 BUN/Creatinine Ratio 9.0 L Glucose 104 Lactic Acid 1.2 Calcium 9.2 Total Bilirubin 0.30 Direct Bilirubin 0.07 AST 15 ALT 18 Alkaline Phosphatase 83 Troponin I < 0.015 Total Protein 7.6 Albumin 3.7 Globulin 3.9 Lipase 146 Urine Color Urine Clarity Urine pH Ur Specific [place] Urine Protein Urine Glucose (UA) Urine Ketones Urine Occult Blood Urine Nitrite Urine Bilirubin Urine Urobilinogen Ur Leukocyte Esterase Urine RBC Urine WBC Ur Squamous Epith Cells Ur Transition Epith Cell Urine Bacteria Hyaline Casts Urine Mucus 04/29/18 14:50 WBC RBC Hgb Hct MCV MCH MCHC RDW RDW Differential Plt Count MPV Immature Gran % (Auto) Neut % (Auto) Lymph % (Auto) [place] % (Auto) Eos % (Auto) Baso % (Auto) Absolute Neuts (auto) Absolute Lymphs (auto) Total Counted Differential Comment Sodium Potassium Chloride Carbon Dioxide Anion Gap BUN Creatinine Estim Creat Clear Calc Est GFR (MDRD) Af Amer Est GFR (MDRD) Non-Af BUN/Creatinine Ratio Glucose Lactic Acid Calcium Total Bilirubin Direct Bilirubin AST ALT Alkaline Phosphatase Troponin I Total Protein Albumin Globulin Lipase Urine Color Yellow Urine Clarity Cloudy Urine pH 5.0 Ur Specific [place] 1.020 Urine Protein 30 H Urine Glucose (UA) Normal Urine Ketones 5 H Urine Occult Blood 10 H Urine Nitrite Positive H Urine Bilirubin 1 H Urine Urobilinogen 1 H Ur Leukocyte Esterase 500 H Urine RBC 0 SEEN Urine WBC 10-25 SEEN Ur Squamous Epith Cells 5-10 SEEN Ur Transition Epith Cell 0-5 SEEN Urine Bacteria 3+ Hyaline Casts 5-10 SEEN Urine Mucus 1+ Clinical Impression(s) from Imaging Studies Chest X-Ray 04/29/18 13:33 IMPRESSION: No evidence of acute cardiopulmonary process. Electronically Signed: Mark Rios DO at 13:50 EDT , Service support , Assessment/Plan All Active Problems (Last Reviewed 04/19/18 @ 15:01 by Georgia Gan) Lower extremity edema (Acute) Fatigue (Acute) Anorexia (Acute) Intractable nausea and vomiting (Acute) Nausea & vomiting (Acute) SIRS (systemic inflammatory response syndrome) (Acute) Educational circumstance (Acute) Frontal headache (Acute) Cancer related pain (Acute) Rash (Acute) Antineoplastic chemotherapy induced anemia (Acute) Chemotherapy management, encounter for (Acute) 1. Intractable N/V unclear etiology, but could be related w cerebellar mets, gastritis, chemo IV PPI CT A/P supportive mgmt 2. SIRS POA leukocytosis skewed given Granix questionable UTI, so no formal dx of sepsis yet 3. Possible UTI given immunocompromised state, will start CTX UA + LE, nitrates and bacteria, but WBCs are minimal. follow up BCx and UCx if Cx negative, then DC abx 4. Stage 4 breast cancer undergoing chemo, immunotherapy and XRT consult oncology for further guidance and recs reinforced that treatment is not curative, but palliative encouraged pt to address prognosis with oncology 5. DVT proph: LMWH 6. Advanced directives: Discussed CPR with patient. She wishes to be FULL CODE status at this time. Code Visit Inpatient E&M: [id number] Init Hosp L3
--- NOTE | 2018-04-29 15:39 | HP.PCM_ITS ---
Problem List (1) Nausea & vomiting Status: Acute (2) SIRS (systemic inflammatory response syndrome) Status: Acute History of Present Illness Date of Admission: 04/29/18 Chief Complaint: intractable nausea vomiting. The patient is a 52 year old F presents with intractable N/V. N/V have been ongoing for months. Subjectively worse since WBR. Eats very little: 2 Pop Tarts in past 8 days. No taste, but can smell still. Had temp this AM of 100.2. No SOB. No congestion. Pt also has abdominal pain that is epigastric radiates down to umbilicus.[] Past Medical History Past Medical History (Chronic Problems): Chronic Problems (Last Reviewed 04/19/18 @ 15:01 by Georgia Gan) Anemia (Chronic) COPD (chronic obstructive pulmonary disease) (Chronic) History of tubal ligation (Chronic) Brain metastases (Chronic) Cerebral aneurysm (Chronic) Primary cancer of left female breast (Chronic) Regional lymph node metastasis present (Chronic) Bone metastases (Chronic) Medical History: Medical History (Last Reviewed 04/29/18 @ 15:39 by Iglesia Mueller DO) Primary cancer of left female breast (Chronic) C50.912 Regional lymph node metastasis present (Chronic) C77.9 Bone metastases (Chronic) C79.51 Pneumonia J18.9 port placement Allergies No Known Allergies Allergy (Verified 04/29/18 12:00) Home Medications: Ambulatory Orders Medication Instructions Recorded Hydrocodone Bitart/Apap 5-325 1 tablet PO Q6H PRN PRN #10 tablet 10/18/17 [[place] 5MG-325MG] Dexamethasone 4 mg PO BID #30 tab 10/19/17 Lidocaine/Prilocaine 30 gm TP DAILY PRN PRN #1 cream..g. 10/19/17 [Lidocaine-Prilocaine Cream] Acetaminophen [Tylenol] 325 mg PO PRN PRN 02/13/18 Loperamide [Imodium] 2 mg PO Q2H PRN PRN 02/13/18 Senna [Senokot] 1 tablet PO DAILY PRN PRN 02/13/18 Loratadine/Pseudoephedrine 1 each PO UD 04/10/18 [Claritin-D 12 Hour Tablet] Fentanyl 1 each TD 04/19/18 Ondansetron [Zofran Odt] 8 mg PO Q8H PRN PRN 10 Days #30 tab 04/19/18 Fentanyl [Fentanyl] 25 mcg TOPICAL Q72H 04/29/18 Surgical History: Surgical History (Last Reviewed 04/29/18 @ 15:39 by Iglesia Mueller DO) History of section Z98.891 Hx of tonsillectomy Z98.890, Z90.89 Smoking Status: Former smoker - quit September 2017 Tobacco Use: Non-smoker Alcohol: None Drugs: None - *Family History Maternal Family History: Family History (Last Reviewed 04/19/18 @ 15:01 by Georgia Gan) Mother Heart disease Father Heart disease Aunt Breast cancer Review of Systems Constitutional: Reports: Anorexia, Chills, Fever. Denies: Night Sweats Eyes: Reports: Blurred vision. Denies: Double vision HEENT: Denies: Head Aches, Sinus Congestion, Sinus Drainage Cardiovascular: Denies: Chest Pain, Palpitations Respiratory: Denies: Cough, Shortness of breath at rest, Sputum production Gastrointestinal: Reports: Abdominal Pain, Nausea, Vomiting. Denies: Diarrhea Genitourinary: Denies: Dysuria Musculoskeletal: Denies: Arm Pain, Back Pain, Foot Pain, Hand Pain Skin: Denies: Rash, Wounds Neurological: Reports: Blurred vision. Denies: Balance problems, Double vision , Slurred speech, Confusion Psychiatric: Denies: Anxiety, Depression Hematologic/ Lymphatic: Reports: Easy Bleeding. Denies: Easy Bruising, Hx of blood clot Comment: All ROS negative except as mentioned above and in the HPI. VTE Information - Inpt Only VTE Present on Admission: No VTE Mechan Device Prophylaxis: None VTE Pharm Prophylaxis ordered?: Yes Patient Problems: Active and Suspected Problems (Last Reviewed 04/19/18 @ 15:01 by Georgia Gan) Nausea & vomiting (Acute) SIRS (systemic inflammatory response syndrome) (Acute) - Physical Exam General: Alert, Cooperative HEENT: Atraumatic, Normocephalic Oral: Moist Mucosa, No Gingival or Mucosal Lesions/ Ulcerations Neck: No Nodes, Thyroid Normal Size and Texture Lungs: Clear to auscultation, Normal air movement, No rhonchi, No wheeze Cardiovascular: Regular rate, Regular Rhythm, Normal S1, Normal S2, No murmurs Abdomen: Bowel Sounds Present, Soft, Non-Distended, Tender - epigastric Extremities: No edema, No Calf Tenderness Skin: No rashes, No breakdown Musculoskeletal: No Tenderness to Palpation of Joints or Extremities, No Muscle Wasting Neurological: Neuro grossly intact, Muscle tone normal Psych/Mental Status: Normal Affect, Appropriate Vital Signs Temp Pulse Resp BP Pulse Ox 36.1 C L 94 16 136/91 H 97 04/29/18 12:01 04/29/18 14:45 04/29/18 14:45 04/29/18 14:45 04/29/18 12:01 Oxygen Delivery Method Room Air Weight: 58.967 kg Body Mass Index (BMI) 25.4 Laboratory Tests Past 24 Hrs 04/29/18 04/29/18 04/29/18 12:50 12:50 12:50 WBC 26.7 H RBC 4.64 Hgb 14.5 Hct 44.9 MCV 96.8 MCH 31.3 MCHC 32.3 RDW 14.1 RDW Differential 48.8 H Plt Count 290 MPV 9.4 Immature Gran % (Auto) 0.500 Neut % (Auto) 89.3 H Lymph % (Auto) 2.2 L [place] % (Auto) 7.9 Eos % (Auto) 0.0 Baso % (Auto) 0.1 Absolute Neuts (auto) 23.8 H Absolute Lymphs (auto) 0.59 L Total Counted Not Reportable Differential Comment SCANNED Sodium 138 Potassium 3.6 Chloride 104 Carbon Dioxide 26.0 Anion Gap 8 BUN 6 L Creatinine 0.67 Estim Creat Clear Calc 72.15 Est GFR (MDRD) Af Amer 119 Est GFR (MDRD) Non-Af 99 BUN/Creatinine Ratio 9.0 L Glucose 104 Lactic Acid 1.2 Calcium 9.2 Total Bilirubin 0.30 Direct Bilirubin 0.07 AST 15 ALT 18 Alkaline Phosphatase 83 Troponin I < 0.015 Total Protein 7.6 Albumin 3.7 Globulin 3.9 Lipase 146 Urine Color Urine Clarity Urine pH Ur Specific [place] Urine Protein Urine Glucose (UA) Urine Ketones Urine Occult Blood Urine Nitrite Urine Bilirubin Urine Urobilinogen Ur Leukocyte Esterase Urine RBC Urine WBC Ur Squamous Epith Cells Ur Transition Epith Cell Urine Bacteria Hyaline Casts Urine Mucus 04/29/18 14:50 WBC RBC Hgb Hct MCV MCH MCHC RDW RDW Differential Plt Count MPV Immature Gran % (Auto) Neut % (Auto) Lymph % (Auto) [place] % (Auto) Eos % (Auto) Baso % (Auto) Absolute Neuts (auto) Absolute Lymphs (auto) Total Counted Differential Comment Sodium Potassium Chloride Carbon Dioxide Anion Gap BUN Creatinine Estim Creat Clear Calc Est GFR (MDRD) Af Amer Est GFR (MDRD) Non-Af BUN/Creatinine Ratio Glucose Lactic Acid Calcium Total Bilirubin Direct Bilirubin AST ALT Alkaline Phosphatase Troponin I Total Protein Albumin Globulin Lipase Urine Color Yellow Urine Clarity Cloudy Urine pH 5.0 Ur Specific [place] 1.020 Urine Protein 30 H Urine Glucose (UA) Normal Urine Ketones 5 H Urine Occult Blood 10 H Urine Nitrite Positive H Urine Bilirubin 1 H Urine Urobilinogen 1 H Ur Leukocyte Esterase 500 H Urine RBC 0 SEEN Urine WBC 10-25 SEEN Ur Squamous Epith Cells 5-10 SEEN Ur Transition Epith Cell 0-5 SEEN Urine Bacteria 3+ Hyaline Casts 5-10 SEEN Urine Mucus 1+ Clinical Impression(s) from Imaging Studies Chest X-Ray 04/29/18 13:33 IMPRESSION: No evidence of acute cardiopulmonary process. Electronically Signed: Mark Rios DO at 13:50 EDT , Service support , Assessment/Plan All Active Problems (Last Reviewed 04/19/18 @ 15:01 by Georgia Gan) Lower extremity edema (Acute) Fatigue (Acute) Anorexia (Acute) Intractable nausea and vomiting (Acute) Nausea & vomiting (Acute) SIRS (systemic inflammatory response syndrome) (Acute) Educational circumstance (Acute) Frontal headache (Acute) Cancer related pain (Acute) Rash (Acute) Antineoplastic chemotherapy induced anemia (Acute) Chemotherapy management, encounter for (Acute) 1. Intractable N/V * unclear etiology, but could be related w cerebellar mets, gastritis, chemo * IV PPI * CT A/P * supportive mgmt 2. SIRS * POA * leukocytosis skewed given Granix * questionable UTI, so no formal dx of sepsis yet 3. Possible UTI * given immunocompromised state, will start CTX * UA + LE, nitrates and bacteria, but WBCs are minimal. * follow up BCx and UCx * if Cx negative, then DC abx 4. Stage 4 breast cancer * undergoing chemo, immunotherapy and XRT * consult oncology for further guidance and recs * reinforced that treatment is not curative, but palliative * encouraged pt to address prognosis with oncology 5. DVT proph: LMWH 6. Advanced directives: Discussed CPR with patient. She wishes to be FULL CODE status at this time. Code Visit Inpatient E&M: [id number] Init Hosp L3
[2018-04-29 16:00] VITALS: PULSE 98; RESP 16
--- NOTE | 2018-04-29 16:58 | CT_ITS ---
STUDY: CT ABDOMEN AND PELVIS WITH CONTRAST REASON FOR EXAM: Female, 52 years old. EPIGASTRIC Pain, nausea AND VOMITING SINCE THIS AM Hx: breast CANCER WITH METS TO Brain, bone AND LYMPH Nodes, pt GETTING CHEMO NOW AND THOMAS HAD RADIATION RADIATION DOSAGE (If Supplied By Facility): CTDIvol = ( 13.67 ) mGy, DLP = ( 537.39 ) mGycm TECHNIQUE: Transaxial images were obtained from the dome of the diaphragm to the symphysis pubis with oral contrast. 100ML ml of Isovue 300 contrast was administered. Sagittal and coronal images were reconstructed. Individualized dose optimization techniques were used for this CT. COMPARISON: CT Abdomen/Pelvis Oct 25 2017 2:39pm FINDINGS: The visualized lung bases are unremarkable. The visualized portions of the heart are within normal limits. There is evidence for a biopsy clip in the left breast. Likely due to timing of the IV bolus, the previously noted nodules in the liver are difficult to visualize. Normal gallbladder and extrahepatic biliary system. Normal spleen. Normal pancreas. Normal bilateral adrenal glands. Normal right kidney. Normal left kidney. Retroaortic left renal vein. Normal visualized stomach. There is diffuse wall thickening and inflammation of the terminal ileum. This suggests the terminal ileitis. 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 Normal colon. The appendix is visualized and appears normal. There are calcifications of the abdominal aorta and vascular structures. This is consistent for atherosclerotic disease. There is no abdominal aortic aneurysm. Normal inferior vena cava. Subcentimeter mesenteric lymph nodes. Normal urinary bladder. Normal visualized uterus. Normal-appearing ovaries. Enlargement left upper abdominal wall soft tissue nodule. Series 2 image 41. It measures 19 x 13 mm. There are degenerative changes of the osseous structures. Diffuse lytic and sclerotic lesions throughout the bones consistent for metastatic disease. There is scoliosis of the lumbar spine. CT/Abdomen/Pelvis WITH Contrast IMPRESSION: There is diffuse wall thickening and inflammation of the terminal ileum. This suggests the terminal ileitis. 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 Enlargement left upper abdominal wall soft tissue nodule. Diffuse lytic and sclerotic lesions throughout the bones consistent for metastatic disease. Likely due to timing of the IV bolus, the previously noted nodules in the liver are difficult to visualize. Other findings as above. Electronically Signed: Victor M Aleman MD at 20:53 EDT , Service support ,
[2018-04-29 17:02] VITALS: BMI 18.5
[2018-04-29] MEDS: Morphine 2 MG/ML Syringe IV ×2 (17:15→21:33)
[2018-04-29] MEDS: fentaNYL 25 MCG Patch TRANSDERM. (17:18)
[2018-04-29] MEDS: Loperamide 2 MG Capsule PO ×2 (17:20→21:35)
[2018-04-29] MEDS: Ceftriaxone 1 GM/50 ML BAG IV (17:22)
[2018-04-29 17:34] VITALS: BP 136/92; PULSE 110; RESP 16; TEMP 36.8; O2SAT 93
[2018-04-29 21:00] VITALS: BP 120/86; PULSE 98; RESP 18; TEMP 37.4; O2SAT 99
[2018-04-29] MEDS: 0.9% NaCl Peripheral Flush Adult/Peds IV (21:19)
[2018-04-30] MEDS: 0.9% Normal Saline 1,000 ML 125 ML IV (01:31)
[2018-04-30] MEDS: Loperamide 2 MG Capsule PO ×2 (01:31→16:52)
[2018-04-30] MEDS: 0.9% NaCl Peripheral Flush Adult/Peds IV ×2 (01:31→06:26)
[2018-04-30] MEDS: Morphine 2 MG/ML Syringe IV ×5 (01:32→21:04)
[2018-04-30 03:00] VITALS: BP 131/70; PULSE 82; RESP 18; TEMP 36.8; O2SAT 95
[2018-04-30 06:14] LABS: Absolute Lymphocyte Count 1.27 X10^3/ul (0.83-4.51); Absolute Neutrophil Count 5.8 X10^3/uL (2.0-7.7); Basophil# 0.02 X10^3/uL; Basophil% 0.2 % (0-1); Eosinophil# 0.02 X10^3/uL; Eosinophils% 0.2 % (0-5); Hematocrit 34.7 % (37-47); Hemoglobin 10.8 g/dl (12.0-15.0); Lymphocyte # 1.27 X10^3/ul (4.0); Lymphocyte % 15.7 % (19-41); Mean Corp Hgb Conc 31.1 g/gl (32-36); Mean Corpuscular Hgb 30.4 pg (27.0-32.0); Mean Corpuscular Volume 97.7 fL (81-99); Mean Platelet Vol. 9.4 fl (6.2-12.0); Monocyte# 0.91 X10^3/uL; Monocyte% 11.3 % (0-10); Neutrophil # 5.81 X10^3/uL (2.7-7.7); Neutrophil % 72.1 % (47-70); Platelet Count 229 K/mm3 (150-450); RBC Distribution Width CV 14.4 % (11.6-14.6); RBC Distribution Width SD 51.5 fl (35.1-43.9); Red Blood Count 3.55 M/mm3 (4.2-5.4); White Blood Count 8.1 K/mm3 (4.4-11.0)
[2018-04-30 06:23] LABS: POSITIVE COUNT NO; POSITIVE DIFFERENTIAL NO; POSITIVE MORPHOLOGY NO
[2018-04-30 06:27] LABS: Anion Gap 6 (5-15); BUN 3 mg/dL (7-18); BUN/Creat Ratio 5.6 RATIO (10-20); Calcium,Total 7.7 mg/dL (8.5-10.1); Chloride 111 mmol/L (98-107); Creatinine, Serum 0.54 mg/dL (0.55-1.02); EST Glomerular Filtration Rate 127 mL/min (>60); Est Glom Filt Rate - Afr Amer 153 mL/min (>60); Estimated Creatinine Clearance 115.04 ml/min; Glucose 91 mg/dL (74-106); Potassium 3.6 mmol/L (3.5-5.1); Sodium Level 142 mmol/L (136-145)
[2018-04-30 09:30] VITALS: BP 126/76; PULSE 82; RESP 16; TEMP 36.7; O2SAT 94
--- NOTE | 2018-04-30 09:30 | PCM.PROGNOTE ---
Patient Problems: Active and Suspected Problems (Last Reviewed 04/29/18 @ 15:39 by Iglesia Mueller DO) Nausea & vomiting (Acute) SIRS (systemic inflammatory response syndrome) (Acute) Subjective: Chief complaint: Follow-up after admission for intractable nausea and vomiting with diarrhea, probable acute cystitis radiation enteritis. Patient seen and examined. No acute events overnight. She reported significant improvement of her symptoms. Nausea and vomiting improved, still having diarrhea with watery stool without blood. She denied abdominal pain, fever or chills. This morning, she was started on clear liquids and she tolerated except minimal nausea. Her vital signs are stable, afebrile, normal tachycardia, pulse ox is maintained on room air. - Physical Exam General: Alert, Oriented x3, Cooperative, No apparent distress HEENT: Atraumatic, PERRLA, EOMI, Normocephalic Oral: Moist Mucosa, No Gingival or Mucosal Lesions/ Ulcerations Neck: Supple, No JVD, Negative Carotid Bruits, Trachea Midline, Thyroid Normal Size and Texture Lungs: Clear to auscultation, Normal air movement, No rhonchi, No wheeze, No rales Cardiovascular: Regular rate, Regular Rhythm, Normal S1, Normal S2, No murmurs Abdomen: Bowel Sounds Present, Soft, Non Tender, Non-Distended, No Hepato-splenomegaly Extremities: No clubbing, No cyanosis, No edema Skin: No rashes, No breakdown Lymphatic: No Cervical, Supraclavicular, or Inguinal Adenopathy Neurological: Cranial nerves II-XII grossly intact, Motor Exam 5/5 strength throughout Psych/Mental Status: Normal Affect, Appropriate, Alert and oriented to time, place, person, mood and affect Vital Signs Temp Pulse Resp BP Pulse Ox 98.2 F 82 18 131/70 H 95 04/30/18 03:00 04/30/18 03:00 04/30/18 03:00 04/30/18 03:00 04/30/18 03:00 Oxygen Delivery Method Room Air Weight: 128 lb 14.4 oz Body Mass Index (BMI) 18.5 Intake and Output for Last 24 Hours 04/28/18 04/29/18 04/30/18 23:59 23:59 23:59 Intake Total 4820 / 4820 Balance 4820 / 4820 Microbiology Past 72 Hours 04/29/18 16:55 C. difficile DNA Amplification - Final Stool Laboratory Tests Past 24 Hrs 04/30/18 04/30/18 06:00 06:00 WBC 8.1 RBC 3.55 L Hgb 10.8 L Hct 34.7 L MCV 97.7 MCH 30.4 MCHC 31.1 L RDW 14.4 RDW Differential 51.5 H Plt Count 229 MPV 9.4 Immature Gran % (Auto) 0.500 Neut % (Auto) 72.1 H Lymph % (Auto) 15.7 L [place] % (Auto) 11.3 H Eos % (Auto) 0.2 Baso % (Auto) 0.2 Absolute Neuts (auto) 5.8 Absolute Lymphs (auto) 1.27 Total Counted Not Reportable Sodium 142 Potassium 3.6 Chloride 111 H Carbon Dioxide 25.0 Anion Gap 6 BUN 3 L Creatinine 0.54 L Estim Creat Clear Calc 115.04 Est GFR (MDRD) Af Amer 153 Est GFR (MDRD) Non-Af 127 BUN/Creatinine Ratio 5.6 L Glucose 91 Calcium 7.7 L Clinical Impression(s) from Imaging Studies Chest X-Ray 04/29/18 13:33 IMPRESSION: No evidence of acute cardiopulmonary process. Electronically Signed: Mark Rios DO at 13:50 EDT , Service support , Abdomen/Pelvis CT 04/29/18 16:58 IMPRESSION: There is diffuse wall thickening and inflammation of the terminal ileum. This suggests the terminal ileitis. 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 Enlargement left upper abdominal wall soft tissue nodule. Diffuse lytic and sclerotic lesions throughout the bones consistent for metastatic disease. Likely due to timing of the IV bolus, the previously noted nodules in the liver are difficult to visualize. Other findings as above. Electronically Signed: Victor M Aleman MD at 20:53 EDT , Service support , Medical Necessity - Tobacco Use Smoking Status: Former smoker Assessment/Plan All Active Problems (Last Reviewed 04/29/18 @ 15:39 by Iglesia Mueller DO) Intractable nausea and vomiting (Acute) Nausea & vomiting (Acute) SIRS (systemic inflammatory response syndrome) (Acute) This is a 52 years old female patient presented to the emergency room because of intractable nausea and vomiting with diarrhea, found to have findings consistent with sepsis secondary to probable acute cystitis. #1 intractable nausea and vomiting/diarrhea: This is probably because of chemotherapy, radiation and radiation induced enteritis. Patient has been on IV fluids, IV PPI, and IV pain medications. Symptoms improved. Stool was negative for C. difficile. Her vital signs are stable last, remained afebrile, no more tachycardia. Plan to continue same treatment, advance diet to full liquid diet, anticipate discharge home tomorrow. #2 radiation induced enteritis: CT scan abdomen reviewed as above. She is on IV fluids and IV pain medications. She is on IV Rocephin as well as well as PPI. Symptoms are improving, no more nausea vomiting. Stool was negative for C. difficile as above. Plan to continue same treatment. #3 probably acute cystitis/sepsis: She is on IV Rocephin. Her white blood cell count is back to normal, heart rate stable. Urine culture and blood culture pending. Plan to continue same treatment. #4 stage IV metastatic breast cancer: Currently on chemotherapy as well as radiation. She follows up with as outpatient. #5 DVT prophylaxis: Subcu Lovenox. This note was generated with [employer] dictation software. It may contain incorrect words, spelling, and punctuation that were not noted in checking the note before signing. Code Visit Inpatient E&M: 36371 Subs Hosp L2
[2018-04-30] MEDS: Enoxaparin 40 MG/0.4 ML Syringe SC (09:41)
[2018-04-30] MEDS: Ceftriaxone 1 GM/50 ML BAG IV (10:10)
[2018-04-30] MEDS: 0.9% Normal Saline 1,000 ML 75 ML IV (10:10)
--- NOTE | 2018-04-30 11:05 | CASEMGMT ---
RN CM Face to Face with patient for initial transition planning/care coordination assessment. RN CM introduced self and role at [facility]. Patient lying in bed, alert and oriented, spouse at bedside. Patient willing to participate in assessment and is able to answer all questions appropriately. Care providers, pharmacy, and demographics verified. See link attached. Patient wishes to discharge home, denies need for home health at this time. Patient states she has no further needs or concerns at this time. CM to follow for discharge planning needs that may arise. Disposition Plan: Patient to discharge home with family support and follow-up plans in place.
[2018-04-30 16:30] VITALS: BP 135/80; PULSE 78; RESP 16; TEMP 36.5; O2SAT 97
--- NOTE | 2018-04-30 16:37 | ONC.CONS.INP ---
Subjective Date of Service:: 04/30/18 Chief Complaint: Intractable nausea/vomiting History of Present Illness: Ms. Lindsay Nair is a very pleasant 52-year-old perimenopausal woman who never had screening mammographies and became aware of a painless lump in the left breast and a second lump in the left axilla in August 2017. On October 12, 2017 she underwent biopsies from the left breast mass and the left axilla that confirmed an invasive lobular carcinoma nuclear grade 3 ER negative, VT negative, HER-2 overexpressed 3+. Initial staging studies revealed diffuse bony lytic lesions throughout the thoracic and lumbar vertebrae and lower cervical segments, lytic lesions in humeral heads bilaterally, sternum, clavicles, left scapula and several ribs bilaterally and an indeterminate lesion too small to characterize in the liver but no other visceral disease. A bone biopsy October 27, 2017 confirmed metastatic cancer of breast origin. Brain MRI obtained 10/20/17 showed small multiple metastatic lesions one in the posterior right internal capsule, multiple bilateral small cerebellar metastases. Received focal radiation therapy to the sites of disease in the [facility] at [facility] 10/2017. Began systemic therapy with docetaxel/trastuzumab/pertuzumab 11/29/17. Required whole brain radiation therapy, 10 fractions 02/28/18- 03/13/18. Systemic therapy was held only during whole brain radiation. Patient presented to [facility] ED 04/29/18 with c/o nausea/vomiting/diarrhea and subsequently admitted for management. Began PPI and antiemetics. Upon evaluation today states I feel so much better was able to tolerate a full liquid diet for mid day meal. Although admits to continued diarrhea, albeit improved in terms of frequency and consistency. Past Medical History: Chronic Problems (Last Reviewed 05/03/18 @ 09:24 by Sloane Schwartz) Fatigue (Chronic) Anorexia (Chronic) Anemia (Chronic) COPD (chronic obstructive pulmonary disease) (Chronic) History of tubal ligation (Chronic) Brain metastases (Chronic) Cerebral aneurysm (Chronic) Primary cancer of left female breast (Chronic) Regional lymph node metastasis present (Chronic) Bone metastases (Chronic) Past Medical/Surgical History: Past Medical History - Most Recent Inpatient Visit Past Medical History Start: 04/29/18 16:43 Text: Status: Complete Freq: ONCE Protocol: Document 04/29/18 17:02 TDW (Rec: 04/29/18 17:07 TDW [id number]) BMI Required to complete PMH What is Patient's BMI 18.5 Neurologic Medical History Hx Stroke/TIA No Hx Dementia/Alzheimer's No Hx Parkinson's Disease No Hx Seizures No Hx Multiple Sclerosis No Hx Migraines Yes Cardiac Medical History VTE Present on Admission No Hx of Deep Vein Thrombosis/VTE/PE No Hx Hypertension No Hx Chest Pain/Angina No Hx Heart Attack No Hx Cardiac Surgery/Stents/Etc. No Hx Heart Failure No Hx Pacemaker/AICD No Hx Irregular Heartbeat and/or Afib No Hx Anticoagulant Therapy No Query Text:(Coumadin, Aspirin, Plavix, Xarelto, etc.) Hx Pain in Legs when Walking/Leg Cramps No Respiratory Medical History Hx COPD No Hx Emphysema No Hx Smoking No Smoking Status Former smoker Tobacco Use Non-smoker Hx Tobacco Use in last 12 months No Hx Sleep Apnea No Do you snore loudly (louder than talking No or can be heard through closed doors)? Do you often feel tired/ fatigued/ No sleepy during daytime? Has anyone observed you stop breathing No during sleep? STOP Results Negative GI Medical History Hx Ulcer No Hx Hepatitis No Hx Cirrhosis No Hx GI Bleed No Hx Unplanned Weight Loss Yes Comments painful stomach Genitourinary Medical History Indwelling Catheter in Place on Arrival/ No Admission Hx Renal Disease No Hx Dialysis No Musculoskeletal History Hx Arthritis Yes: back, elbow Hx Rheumatoid Arthritis No Endocrine Medical History Hx Diabetes No Hx Thyroid Disease No Hematologic Medical History Hx of Blood Transfusion Yes Hx of Transfusion in last 3 Months No Ever experience any problems with No transfusion(s)? Hx of Preganancy in last 3 Months No Nurse Filling Out Transfusion & TWOLF Questions: Date: 04/29/18 Time: 17:06 Psycho/Social Medical History Hx Depression Yes Hx Anxiety Yes Hx Behavior Disorder No Hx Alcohol Use No Hx Substance Use No Other Medical History Hx Blood Disorders No Hx Anemia Yes Hx Cancer Yes: MET BREAST Hx Drug Resistant Organism No Wound/Pressure Injury Present on Arrival No /Admission Query Text:If yes, chart assessment in Shift/Clinical Findings Central Line/PICC/VAD Present on Arrival Yes /Admission Antibiotics within last 7 days? No Risk for Readmission Number of Risk Factors 7 At Risk for Readmission Patient is At Risk For Readmission Patient is eligible for Call Back Y Past Medical History (Last Reviewed 04/29/18 @ 15:39 by Iglesia Jopperi, DO) Primary cancer of left female breast (Chronic) Regional lymph node metastasis present (Chronic) Bone metastases (Chronic) Pneumonia (Acute) port placement (Acute) Past Surgical History (Last Reviewed 04/29/18 @ 15:39 by Iglesia Mueller DO) History of section (Acute) Hx of tonsillectomy (Acute) Maternal Family History: Family History (Last Reviewed 05/03/18 @ 09:24 by Sloane Schwartz) Mother Heart disease Father Heart disease Aunt Breast cancer - Social History Smoking Status: Former smoker Tobacco Use: Non-smoker Alcohol: None Drugs: None Allergies/Adverse Reactions: Allergy/AdvReac Type Severity Reaction Status Date / Time No Known Allergies Allergy Verified 05/03/18 09:24 Review of Systems Constitutional:: Reports: Weakness, Fatigue. Denies: Fever, Sweats, Weight loss, Appetite change, Chills Cardiovascular:: Denies: Chest pain, Palpitations, Dyspnea on exertion, Orthopnea, PND, Shortness of breath Respiratory: Denies: Cough, Hemoptysis, Shortness of Breath, Wheezing Gastrointestinal:: Reports: Nausea, Diarrhea. Denies: Abdominal pain, Vomiting, Constipation, Hematochezia Genitourinary: Denies: Dysuria, Hematuria, Urinary frequency, Flank pain Musculoskeletal:: Denies: Back pain, Myalgia, Arthralgia Skin: Denies: Rash, Skin Changes, Wounds Neurological:: Denies: Headache, Dizziness, Visual changes, Tinnitus, Hearing loss Psychiatric: Denies: Anxiety, Depression, Homicidal Ideations, Suicidal Ideations Vital Signs Height 5 ft 10 in Weight: 128 lb 14.4 oz Weight in Pounds 128.9 lbs Pulse Ox 94 Temperature 98.1 F Pulse Rate 82 Respiratory Rate 16 Blood Pressure 126/76 Blood Pressure Position Semi-Fowlers - Physical Exam General: Alert, Oriented x3, No apparent distress, - - cushingoid appearance HEENT: Atraumatic, PERRLA, EOMI, Normocephalic Oropharynx:: Negative for: Dry mucosa, Ulcerated lesions Neck:: Supple, Trachea midline. Negative for: JVD, bilateral Cardiac:: Regular rate, Regular rhythm, Normal S1, Normal S2. Negative for: Murmur Lungs: Clear to auscultation, Excusion symmetrical. Negative for: Rhonchi, Wheezes Abdomen:: Bowel sounds x 4, Soft, Non-tender, Non-distended, Hyperactive bowel sounds. Negative for: Hepatosplenomegaly Extremities:: Negative for: Cyanosis, Edema Neurological: Neuro grossly intact Skin:: Negative for: Lesions, Rash, Petechiae, Ecchymosis Psychiatric:: Appropriate affect, Euthymic Lymphatics:: Negative for: Cervical lymphadenopathy, Supraclavicular lymphadenopathy, Axillary lymphadenopathy Laboratory Data: Microbiology 04/29/18 16:55 Enteric Bacteriology - Final Stool 04/29/18 16:55 C. difficile DNA Amplification - Final Stool Laboratory Tests 04/30/18 04/30/18 Range/Units 06:00 06:00 WBC 8.1 (4.4-11.0) K/mm3 RBC 3.55 L (4.2-5.4) M/mm3 Hgb 10.8 L (12.0-15.0) g/dl Hct 34.7 L (37-47) % MCV 97.7 (81-99) fL MCH 30.4 (27.0-32.0) pg MCHC 31.1 L (32-36) g/gl RDW 14.4 (11.6-14.6) % RDW Differential 51.5 H (35.1-43.9) fl Plt Count 229 (150-450) K/mm3 MPV 9.4 (6.2-12.0) fl Immature Gran % (Auto) 0.500 (0.0-0.9) % Neut % (Auto) 72.1 H (47-70) % Lymph % (Auto) 15.7 L (19-41) % [place] % (Auto) 11.3 H (0-10) % Eos % (Auto) 0.2 (0-5) % Baso % (Auto) 0.2 (0-1) % Absolute Neuts (auto) 5.8 (2.0-7.7) X10^3/uL Absolute Lymphs (auto) 1.27 (0.83-4.51) X10^3/ul Total Counted Not Reportable Sodium 142 (136-145) mmol/L Potassium 3.6 (3.5-5.1) mmol/L Chloride 111 H (98-107) mmol/L Carbon Dioxide 25.0 (21.0-32.0) mmol/L Anion Gap 6 (5-15) BUN 3 L (7-18) mg/dL Creatinine 0.54 L (0.55-1.02) mg/dL Estim Creat Clear Calc 115.04 ml/min Est GFR (MDRD) Af Amer 153 (>60) mL/min Est GFR (MDRD) Non-Af 127 (>60) mL/min BUN/Creatinine Ratio 5.6 L (10-20) RATIO Glucose 91 (74-106) mg/dL Calcium 7.7 L (8.5-10.1) mg/dL Diagnostic Data: Diagnostic Data Chest X-Ray 04/29/18 13:33 IMPRESSION: No evidence of acute cardiopulmonary process. Electronically Signed: Mark Rios DO at 13:50 EDT , Service support , Abdomen/Pelvis CT 04/29/18 16:58 IMPRESSION: There is diffuse wall thickening and inflammation of the terminal ileum. This suggests the terminal ileitis. 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 Enlargement left upper abdominal wall soft tissue nodule. Diffuse lytic and sclerotic lesions throughout the bones consistent for metastatic disease. Likely due to timing of the IV bolus, the previously noted nodules in the liver are difficult to visualize. Other findings as above. Electronically Signed: Victor M Aleman MD at 20:53 EDT , Service support , Assessment and Plan 52-year-old perimenopausal woman with stage IV invasive lobular carcinoma of the left breast (T2, N3, M1) ER negative, VT negative, HER-2 overexpressed with metastases to left axillary, left supraclavicular and left cervical lymph nodes in addition to widespread metastatic disease to bone , an indeterminate lesion in the liver too small to characterize, and multiple bilateral low-volume brain metastases without visible edema, s/p both focal and whole brain radiation. Patient presented to the emergency department with c/o intractable nausea and vomiting with diarrhea, found to have findings consistent with sepsis secondary to probable acute cystitis. 1. Intractable nausea and vomiting/diarrhea- Vomiting resolved. Managed with IV fluids, IV PPI, and IV pain medications. Stool was negative for C. difficile. Per her request, advanced diet to regular. Educated to use prn Zofran and avoid the use of any other prn antiemetic she may have at home (Compazine) as may lower seizure threshold. CT abd/pelvis reviewed. Terminal ileitis unlikely r/t radiation as she has only received focal and whole brain radiation. MRI brain obtained 04/23/18 reviewed, shows persistent small cerebellar metastasis however there is generalized interval improvement in the number of metastatic lesions since previous exam and no mention of associated edema. Thus, d/t cushingoid appearance and improvement of symptoms, will hold on re introduction to steroids at this time. 2. Stage IV metastatic breast cancer- Currently receiving systemic therapy with Taxotere/Herceptin/Perjeta, EF 65%. Restaging studies were ordered last week. Will discuss details of findings with Dr. Pak at her office visit on 05/03/18. 3. Presumable cystitis/sepsis- Managed by primary team, on IV Rocephin. Urine culture and blood culture pending. 4. DVT prophylaxis: SQ Lovenox. Mar Medrano, MSN, TECHNICAL INFORMATION SPECIALIST, AOCNP Medications: Prescriptions This Visit Medication Instructions Recorded Fentanyl [Fentanyl] 25 mcg TOPICAL Q72H 04/29/18 Medications Added to Medication List This Visit Category Date Time Status Ceftriaxone [Rocephin] Med 04/30/18 10:00 Active 1 gm in 50 ml IV Q24 Enoxaparin [Lovenox] Med 04/30/18 10:00 Active 40 mg SC DAILY@1000 Primary Care Provider: No Primary Care Phys Referring Provider: - Problem List (1) Intractable nausea and vomiting Status: Acute Qualifiers: Vomiting type: unspecified Qualified Code(s): R11.2 - Nausea with vomiting, unspecified (2) Brain metastases Status: Chronic (3) Primary cancer of left female breast Status: Chronic
--- NOTE | 2018-04-30 16:55 | CON.PCM_ITS ---
Subjective Date of Service:: 04/30/18 Chief Complaint: Intractable nausea/vomiting History of Present Illness: Ms. Lindsay Nair is a very pleasant 52-year-old perimenopausal woman who never had screening mammographies and became aware of a painless lump in the left breast and a second lump in the left axilla in August 2017. On October 12, 2017 she underwent biopsies from the left breast mass and the left axilla that confirmed an invasive lobular carcinoma nuclear grade 3 ER negative, WV negative, HER-2 overexpressed 3+. Initial staging studies revealed diffuse bony lytic lesions throughout the thoracic and lumbar vertebrae and lower cervical segments, lytic lesions in humeral heads bilaterally, sternum, clavicles, left scapula and several ribs bilaterally and an indeterminate lesion too small to characterize in the liver but no other visceral disease. A bone biopsy October 27, 2017 confirmed metastatic cancer of breast origin. Brain MRI obtained 10/20/17 showed small multiple metastatic lesions one in the posterior right internal capsule, multiple bilateral small cerebellar metastases. Received focal radiation therapy to the sites of disease in the [facility] at [facility] 10/2017. Began systemic therapy with docetaxel/trastuzumab/ pertuzumab 11/29/17. Required whole brain radiation therapy, 10 fractions 02/28/18 - 03/13/18. Systemic therapy was held only during whole brain radiation. Patient presented to [facility] ED 04/29/18 with c/o nausea/vomiting/diarrhea and subsequently admitted for management. Began PPI and antiemetics. Upon evaluation today states I feel so much better was able to tolerate a full liquid diet for mid day meal. Although admits to continued diarrhea, albeit improved in terms of frequency and consistency. Past Medical History: Chronic Problems (Last Reviewed 05/03/18 @ 09:24 by Sloane Schwartz) Fatigue (Chronic) Anorexia (Chronic) Anemia (Chronic) COPD (chronic obstructive pulmonary disease) (Chronic) History of tubal ligation (Chronic) Brain metastases (Chronic) Cerebral aneurysm (Chronic) Primary cancer of left female breast (Chronic) Regional lymph node metastasis present (Chronic) Bone metastases (Chronic) Past Medical/Surgical History: Past Medical History - Most Recent Inpatient Visit Past Medical History Start: 04/29/18 16: 43 Text: Status: Complete Freq: ONCE Protocol: Document 04/29/18 17:02 TDW (Rec: 04/29/18 17:07 TDW [id number]) BMI Required to complete PMH What is Patient's BMI 18.5 Neurologic Medical History Hx Stroke/TIA No Hx Dementia/Alzheimer's No Hx Parkinson's Disease No Hx Seizures No Hx Multiple Sclerosis No Hx Migraines Yes Cardiac Medical History VTE Present on Admission No Hx of Deep Vein Thrombosis/VTE/PE No Hx Hypertension No Hx Chest Pain/Angina No Hx Heart Attack No Hx Cardiac Surgery/Stents/Etc. No Hx Heart Failure No Hx Pacemaker/AICD No Hx Irregular Heartbeat and/or Afib No Hx Anticoagulant Therapy No Query Text:(Coumadin, Aspirin, Plavix, Xarelto, etc.) Hx Pain in Legs when Walking/Leg Cramps No Respiratory Medical History Hx COPD No Hx Emphysema No Hx Smoking No Smoking Status Former smoker Tobacco Use Non-smoker Hx Tobacco Use in last 12 months No Hx Sleep Apnea No Do you snore loudly (louder than talking No or can be heard through closed doors)? Do you often feel tired/ fatigued/ No sleepy during daytime? Has anyone observed you stop breathing No during sleep? STOP Results Negative GI Medical History Hx Ulcer No Hx Hepatitis No Hx Cirrhosis No Hx GI Bleed No Hx Unplanned Weight Loss Yes Comments painful stomach Genitourinary Medical History Indwelling Catheter in Place on Arrival/ No Admission Hx Renal Disease No Hx Dialysis No Musculoskeletal History Hx Arthritis Yes: back, elbow Hx Rheumatoid Arthritis No Endocrine Medical History Hx Diabetes No Hx Thyroid Disease No Hematologic Medical History Hx of Blood Transfusion Yes Hx of Transfusion in last 3 Months No Ever experience any problems with No transfusion(s)? Hx of Preganancy in last 3 Months No Nurse Filling Out Transfusion & TWOLF Questions: Date: 04/29/18 Time: 17:06 Psycho/Social Medical History Hx Depression Yes Hx Anxiety Yes Hx Behavior Disorder No Hx Alcohol Use No Hx Substance Use No Other Medical History Hx Blood Disorders No Hx Anemia Yes Hx Cancer Yes: MET BREAST Hx Drug Resistant Organism No Wound/Pressure Injury Present on Arrival No /Admission Query Text:If yes, chart assessment in Shift/Clinical Findings Central Line/PICC/VAD Present on Arrival Yes /Admission Antibiotics within last 7 days? No Risk for Readmission Number of Risk Factors 7 At Risk for Readmission Patient is At Risk For Readmission Patient is eligible for Call Back Y Past Medical History (Last Reviewed 04/29/18 @ 15:39 by Iglesia Jopperi, DO) Primary cancer of left female breast (Chronic) Regional lymph node metastasis present (Chronic) Bone metastases (Chronic) Pneumonia (Acute) port placement (Acute) Past Surgical History (Last Reviewed 04/29/18 @ 15:39 by Iglesia Mueller DO) History of section (Acute) Hx of tonsillectomy (Acute) Maternal Family History: Family History (Last Reviewed 05/03/18 @ 09:24 by Sloane Schwartz) Mother Heart disease Father Heart disease Aunt Breast cancer - Social History Smoking Status: Former smoker Tobacco Use: Non-smoker Alcohol: None Drugs: None Allergies/Adverse Reactions: Allergy/AdvReac Type Severity Reaction Status Date / Time No Known Allergies Allergy Verified 05/03/18 09:24 Review of Systems Constitutional:: Reports: Weakness, Fatigue. Denies: Fever, Sweats, Weight loss , Appetite change, Chills Cardiovascular:: Denies: Chest pain, Palpitations, Dyspnea on exertion, Orthopnea, PND, Shortness of breath Respiratory: Denies: Cough, Hemoptysis, Shortness of Breath, Wheezing Gastrointestinal:: Reports: Nausea, Diarrhea. Denies: Abdominal pain, Vomiting , Constipation, Hematochezia Genitourinary: Denies: Dysuria, Hematuria, Urinary frequency, Flank pain Musculoskeletal:: Denies: Back pain, Myalgia, Arthralgia Skin: Denies: Rash, Skin Changes, Wounds Neurological:: Denies: Headache, Dizziness, Visual changes, Tinnitus, Hearing loss Psychiatric: Denies: Anxiety, Depression, Homicidal Ideations, Suicidal Ideations Vital Signs Height 5 ft 10 in Weight: 128 lb 14.4 oz Weight in Pounds 128.9 lbs Pulse Ox 94 Temperature 98.1 F Pulse Rate 82 Respiratory Rate 16 Blood Pressure 126/76 Blood Pressure Position Semi-Fowlers - Physical Exam General: Alert, Oriented x3, No apparent distress, - - cushingoid appearance HEENT: Atraumatic, PERRLA, EOMI, Normocephalic Oropharynx:: Negative for: Dry mucosa, Ulcerated lesions Neck:: Supple, Trachea midline. Negative for: JVD, bilateral Cardiac:: Regular rate, Regular rhythm, Normal S1, Normal S2. Negative for: Murmur Lungs: Clear to auscultation, Excusion symmetrical. Negative for: Rhonchi, Wheezes Abdomen:: Bowel sounds x 4, Soft, Non-tender, Non-distended, Hyperactive bowel sounds. Negative for: Hepatosplenomegaly Extremities:: Negative for: Cyanosis, Edema Neurological: Neuro grossly intact Skin:: Negative for: Lesions, Rash, Petechiae, Ecchymosis Psychiatric:: Appropriate affect, Euthymic Lymphatics:: Negative for: Cervical lymphadenopathy, Supraclavicular lymphadenopathy, Axillary lymphadenopathy Laboratory Data: Microbiology 04/29/18 16:55 Enteric Bacteriology - Final Stool 04/29/18 16:55 C. difficile DNA Amplification - Final Stool Laboratory Tests 3 04/30/18 04/30/18 Range/Units 06:00 06:00 WBC 8.1 (4.4-11.0) K/mm3 RBC 3.55 L (4.2-5.4) M/mm3 Hgb 10.8 L (12.0-15.0) g/dl Hct 34.7 L (37-47) % MCV 97.7 (81-99) fL MCH 30.4 (27.0-32.0) pg MCHC 31.1 L (32-36) g/gl RDW 14.4 (11.6-14.6) % RDW Differential 51.5 H (35.1-43.9) fl Plt Count 229 (150-450) K/mm3 MPV 9.4 (6.2-12.0) fl Immature Gran % (Auto) 0.500 (0.0-0.9) % Neut % (Auto) 72.1 H (47-70) % Lymph % (Auto) 15.7 L (19-41) % [place] % (Auto) 11.3 H (0-10) % Eos % (Auto) 0.2 (0-5) % Baso % (Auto) 0.2 (0-1) % Absolute Neuts (auto) 5.8 (2.0-7.7) X10^3/uL Absolute Lymphs (auto) 1.27 (0.83-4.51) X10^3/ul Total Counted Not Reportable Sodium 142 (136-145) mmol/L Potassium 3.6 (3.5-5.1) mmol/L Chloride 111 H (98-107) mmol/L Carbon Dioxide 25.0 (21.0-32.0) mmol/L Anion Gap 6 (5-15) BUN 3 L (7-18) mg/dL Creatinine 0.54 L (0.55-1.02) mg/dL Estim Creat Clear Calc 115.04 ml/min Est GFR (MDRD) Af Amer 153 (>60) mL/min Est GFR (MDRD) Non-Af 127 (>60) mL/min BUN/Creatinine Ratio 5.6 L (10-20) RATIO Glucose 91 (74-106) mg/dL Calcium 7.7 L (8.5-10.1) mg/dL Diagnostic Data: Diagnostic Data Chest X-Ray 04/29/18 13:33 IMPRESSION: No evidence of acute cardiopulmonary process. Electronically Signed: Mark Rios DO at 13:50 EDT , Service support , Abdomen/Pelvis CT 04/29/18 16:58 IMPRESSION: There is diffuse wall thickening and inflammation of the terminal ileum. This suggests the terminal ileitis. 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 Enlargement left upper abdominal wall soft tissue nodule. Diffuse lytic and sclerotic lesions throughout the bones consistent for metastatic disease. Likely due to timing of the IV bolus, the previously noted nodules in the liver are difficult to visualize. Other findings as above. Electronically Signed: Victor M Aleman MD at 20:53 EDT , Service support , Assessment and Plan 52-year-old perimenopausal woman with stage IV invasive lobular carcinoma of the left breast (T2, N3, M1) ER negative, WV negative, HER-2 overexpressed with metastases to left axillary, left supraclavicular and left cervical lymph nodes in addition to widespread metastatic disease to bone , an indeterminate lesion in the liver too small to characterize, and multiple bilateral low-volume brain metastases without visible edema, s/p both focal and whole brain radiation. Patient presented to the emergency department with c/o intractable nausea and vomiting with diarrhea, found to have findings consistent with sepsis secondary to probable acute cystitis. 1. Intractable nausea and vomiting/diarrhea- Vomiting resolved. Managed with IV fluids, IV PPI, and IV pain medications. Stool was negative for C. difficile. Per her request, advanced diet to regular. Educated to use prn Zofran and avoid the use of any other prn antiemetic she may have at home ( Compazine) as may lower seizure threshold. CT abd/pelvis reviewed. Terminal ileitis unlikely r/t radiation as she has only received focal and whole brain radiation. MRI brain obtained 04/23/18 reviewed, shows persistent small cerebellar metastasis however there is generalized interval improvement in the number of metastatic lesions since previous exam and no mention of associated edema. Thus, d/t cushingoid appearance and improvement of symptoms, will hold on re introduction to steroids at this time. 2. Stage IV metastatic breast cancer- Currently receiving systemic therapy with Taxotere/Herceptin/Perjeta, EF 65%. Restaging studies were ordered last week. Will discuss details of findings with Dr. Pak at her office visit on 05/03/18. 3. Presumable cystitis/sepsis- Managed by primary team, on IV Rocephin. Urine culture and blood culture pending. 4. DVT prophylaxis: SQ Lovenox. Mar Medrano, MSN, FLASH W[employer]DER, AOCNP Medications: Prescriptions This Visit Medication Instructions Recorded Fentanyl [Fentanyl] 25 mcg TOPICAL Q72H 04/29/18 Medications Added to Medication List This Visit Category Date Time Status Ceftriaxone [Rocephin] Med 04/30/18 10:00 Active 1 gm in 50 ml IV Q24 Enoxaparin [Lovenox] Med 04/30/18 10:00 Active 40 mg SC DAILY@1000 Primary Care Provider: No Primary Care Phys Referring Provider: - Problem List (1) Intractable nausea and vomiting Status: Acute Qualifiers: Vomiting type: unspecified Qualified Code(s): R11.2 - Nausea with vomiting , unspecified (2) Brain metastases Status: Chronic (3) Primary cancer of left female breast Status: Chronic
[2018-04-30] MEDS: Ondansetron 4 MG/2 ML Vial IV (19:24)
[2018-04-30 21:18] VITALS: BP 129/89; PULSE 77; RESP 16; TEMP 37; O2SAT 99
[2018-05-01] MEDS: Morphine 2 MG/ML Syringe IV ×3 (01:57→09:37)
[2018-05-01 01:58] VITALS: BP 131/76; PULSE 83; RESP 16; TEMP 37.2; O2SAT 95
[2018-05-01] MEDS: Loperamide 2 MG Capsule PO (05:53)
[2018-05-01] MEDS: Ondansetron 4 MG/2 ML Vial IV (07:28)
--- NOTE | 2018-05-01 08:40 | DCINST_ITS ---
- Discharge Diagnoses Current Active Problems: Current Active and Chronic Problems (Last Reviewed 04/29/18 @ 15:39 by Iglesia Mueller DO) Nausea & vomiting (Acute) SIRS (systemic inflammatory response syndrome) (Acute) You will use the following diet at home:: Regular Your food should be the consistency of: Regular Discharge Activity: Return to Normal Activity, May not drive while taking narcotic pain medications. Weight Bearing Status: Weight bearing as tolerated Call your doctor if you observe: Fever of 101 or Higher, Shortness of breath, Dizziness, Fainting spells, Chest pain, Increased palpitations (irregular heartbeat), Uncontrolled pain Allergies/Adverse Reactions: Allergies No Known Allergies Allergy (Verified 04/29/18 12:00) Medications to take at Discharge Hydrocodone Bitart/Apap 5-325 [[place] 5/325] 1 tablet PO Q6H PRN PRN #10 tablet 10/18/17 Dexamethasone 4 mg PO BID #30 tab 10/19/17 Lidocaine/Prilocaine [Lidocaine-Prilocaine Cream] 30 gm TP DAILY PRN PRN #1 cream..g. 10/19/17 Acetaminophen [Tylenol] 325 mg PO PRN PRN 02/13/18 Loperamide [Imodium] 2 mg PO Q2H PRN PRN 02/13/18 Senna [Senokot] 1 tablet PO DAILY PRN PRN 02/13/18 Loratadine/Pseudoephedrine [Claritin-D 12 Hour Tablet] 1 each PO UD 04/10/18 Fentanyl 25 mcg TD Q72H 04/19/18 Ondansetron [Zofran Odt] 8 mg PO Q8H PRN PRN 10 Days #30 tab 04/19/18 Fentanyl 25 mcg TOPICAL Q72H 04/29/18 Primary Care Physician: Care Physician,No Primary [Primary Care Provider] - Please follow up with your Primary Care Physician in: 2-3 weeks. Test Results: Test results from this visit will be discussed in further detail at your follow- up appointment, if applicable. Please Follow Up With: Carolina Pak MD When: as scheduled.
[2018-05-01 09:31] VITALS: BP 130/84; PULSE 72; RESP 18; TEMP 37.2; O2SAT 95
[2018-05-01] MEDS: Ceftriaxone 1 GM/50 ML BAG IV (10:12)
[2018-05-01] MEDS: 0.9% NaCl Peripheral Flush Adult/Peds IV (11:11)
--- NOTE | 2018-05-01 13:07 | PCM.DC.SUM ---
Discharge Date and Diagnosis Date of Admission: 04/29/18 Date of Discharge: 05/01/18 - Primary Discharge Diagnosis #1 intractable nausea and vomiting/diarrhea. #2 radiation-induced enteritis. #3 probable acute cystitis/sepsis. - Secondary Discharge Diagnosis Chronic Problems (Last Reviewed 04/29/18 @ 15:39 by Iglesia Mueller DO) Anemia (Chronic) COPD (chronic obstructive pulmonary disease) (Chronic) History of tubal ligation (Chronic) Brain metastases (Chronic) Cerebral aneurysm (Chronic) Primary cancer of left female breast (Chronic) Regional lymph node metastasis present (Chronic) Bone metastases (Chronic) Hospital Course and Treatment Imaging Results: Clinical Impression(s) from Imaging Studies Chest X-Ray 04/29/18 13:33 IMPRESSION: No evidence of acute cardiopulmonary process. Electronically Signed: Mark Rios DO at 13:50 EDT , Service support , Abdomen/Pelvis CT 04/29/18 16:58 IMPRESSION: There is diffuse wall thickening and inflammation of the terminal ileum. This suggests the terminal ileitis. 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 Enlargement left upper abdominal wall soft tissue nodule. Diffuse lytic and sclerotic lesions throughout the bones consistent for metastatic disease. Likely due to timing of the IV bolus, the previously noted nodules in the liver are difficult to visualize. Other findings as above. Electronically Signed: Victor M Aleman MD at 20:53 EDT , Service support , Operations: None Procedures: None Summary of Care Provided: Patient seen and examined on the day of discharge and appeared to be stable to be discharged home. Nausea and vomiting improved, has been able to tolerate regular diet. Still having diarrhea. Abdominal pain significant improved, no fever or chills. Her vital signs stable. - Physical Exam General: Alert, Oriented x3, Cooperative, No apparent distress. HEENT: Atraumatic, PERRLA, EOMI. Neck: Supple, No JVD, Negative Carotid Bruits, Trachea Midline, Thyroid Normal. Lungs: Clear to auscultation, Normal air movement, No rhonchi, No wheeze, No rales. Cardiovascular: Regular rate, Regular Rhythm, Normal S1, Normal S2, PMI Normal. Abdomen: Bowel Sounds Present, Soft, Non Tender, Non-Distended, No Hepato-splenomegaly. Extremities: No clubbing, No cyanosis, No edema Skin: No rashes, No breakdown Neurological: Neuro grossly intact Vital Signs are stable. Hospital course: The patient is a 52 year old F admitted because of intractable nausea and vomiting with diarrhea and she was found to have findings consistent with sepsis. The sepsis attributed to probable acute cystitis in addition to acute diarrheal illness caused by radiation induced enteritis. This patient has history of stage IV metastatic breast cancer, currently on chemotherapy and radiation. CT scan abdomen and pelvis with contrast revealed diffuse wall thickening and inflammation of the terminal ileum consistent with terminal ileitis which is attributed to radiation that patient is here for metastatic breast cancer. CT scan abdomen also revealed metastatic diffuse lytic and sclerotic bone lesions as well as metastatic liver disease. On admission, patient was tachycardic, has leukocytosis. Her urinalysis revealed cloudy urine, positive for nitrite, positive for leukocyte esterase and he was 10-25 WBCs and 3+ bacteria. She was treated with IV fluids, IV Rocephin, IV pain medications and IV antiemetics. With treatment, recent symptoms improved and she was able to tolerate clear liquid diet. Her lactic acid was normal. Blood culture showed no growth in 48 hours. Stool for C. difficile was negative. Stool for enteric pathogens was negative as well. With treatment, her white blood cell count returned back to normal. Her LFT and lipase were normal. Patient discharged home in a stable medical condition, discharged on ciprofloxacin 500 mg p.o. twice daily for 5 days, continued on her home medications without any changes, plan to follow-up with oncology this coming April, recommended follow-up with PCP in 2-3 weeks. Discharge Activity: Return to Normal Activity, May not drive while taking narcotic pain medications. Weight Bearing Status: Weight bearing as tolerated Call your doctor if you observe: Fever of 101 or Higher, Shortness of breath, Dizziness, Fainting spells, Chest pain, Increased palpitations (irregular heartbeat), Uncontrolled pain Home Medications: Medications to take at Discharge Hydrocodone Bitart/Apap 5-325 [[place] 5/325] 1 tablet PO Q6H PRN PRN #10 tablet 10/18/17 Dexamethasone 4 mg PO BID #30 tab 10/19/17 Lidocaine/Prilocaine [Lidocaine-Prilocaine Cream] 30 gm TP DAILY PRN PRN #1 cream..g. 10/19/17 Acetaminophen [Tylenol] 325 mg PO PRN PRN 02/13/18 Loperamide [Imodium] 2 mg PO Q2H PRN PRN 02/13/18 Senna [Senokot] 1 tablet PO DAILY PRN PRN 02/13/18 Loratadine/Pseudoephedrine [Claritin-D 12 Hour Tablet] 1 each PO UD 04/10/18 Fentanyl 25 mcg TD Q72H 04/19/18 Ondansetron [Zofran Odt] 8 mg PO Q8H PRN PRN 10 Days #30 tab 04/19/18 Fentanyl 25 mcg TOPICAL Q72H 04/29/18 Ciprofloxacin [Cipro] 500 mg PO BID #10 tab 05/01/18 Following Prescrptions Were Given to Patient: Ciprofloxacin [Cipro] 500 mg PO BID #10 tab Primary Care Physician: Care Physician,No Primary [Primary Care Provider] - Please follow up with your Primary Care Physician in: 2-3 weeks. Please Follow Up With: Carolina Pak MD When: as scheduled. Disposition: Home Minutes spent on discharge:: 33 Patient Condition:: Stable Medical Necessity - Tobacco Use Smoking Status: Former smoker Tobacco Use: Non-smoker Meaningful Use Info Meaningful Use Diagnoses (Choose all that apply): None applicable Code Visit Inpatient E&M: 68278 Disch Hosp
--- NOTE | 2018-05-01 13:12 | DS.PCM_ITS ---
Discharge Date and Diagnosis Date of Admission: 04/29/18 Date of Discharge: 05/01/18 - Primary Discharge Diagnosis #1 intractable nausea and vomiting/diarrhea. #2 radiation-induced enteritis. #3 probable acute cystitis/sepsis. - Secondary Discharge Diagnosis Chronic Problems (Last Reviewed 04/29/18 @ 15:39 by Iglesia Mueller DO) Anemia (Chronic) COPD (chronic obstructive pulmonary disease) (Chronic) History of tubal ligation (Chronic) Brain metastases (Chronic) Cerebral aneurysm (Chronic) Primary cancer of left female breast (Chronic) Regional lymph node metastasis present (Chronic) Bone metastases (Chronic) Hospital Course and Treatment Imaging Results: Clinical Impression(s) from Imaging Studies Chest X-Ray 04/29/18 13:33 IMPRESSION: No evidence of acute cardiopulmonary process. Electronically Signed: Mark Rios DO at 13:50 EDT , Service support , Abdomen/Pelvis CT 04/29/18 16:58 IMPRESSION: There is diffuse wall thickening and inflammation of the terminal ileum. This suggests the terminal ileitis. 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 Enlargement left upper abdominal wall soft tissue nodule. Diffuse lytic and sclerotic lesions throughout the bones consistent for metastatic disease. Likely due to timing of the IV bolus, the previously noted nodules in the liver are difficult to visualize. Other findings as above. Electronically Signed: Victor M Aleman MD at 20:53 EDT , Service support , Operations: None Procedures: None Summary of Care Provided: Patient seen and examined on the day of discharge and appeared to be stable to be discharged home. Nausea and vomiting improved, has been able to tolerate regular diet. Still having diarrhea. Abdominal pain significant improved, no fever or chills. Her vital signs stable. - Physical Exam General: Alert, Oriented x3, Cooperative, No apparent distress. HEENT: Atraumatic, PERRLA, EOMI. Neck: Supple, No JVD, Negative Carotid Bruits, Trachea Midline, Thyroid Normal. Lungs: Clear to auscultation, Normal air movement, No rhonchi, No wheeze, No rales. Cardiovascular: Regular rate, Regular Rhythm, Normal S1, Normal S2, PMI Normal. Abdomen: Bowel Sounds Present, Soft, Non Tender, Non-Distended, No Hepato- splenomegaly. Extremities: No clubbing, No cyanosis, No edema Skin: No rashes, No breakdown Neurological: Neuro grossly intact Vital Signs are stable. Hospital course: The patient is a 52 year old F admitted because of intractable nausea and vomiting with diarrhea and she was found to have findings consistent with sepsis. The sepsis attributed to probable acute cystitis in addition to acute diarrheal illness caused by radiation induced enteritis. This patient has history of stage IV metastatic breast cancer, currently on chemotherapy and radiation. CT scan abdomen and pelvis with contrast revealed diffuse wall thickening and inflammation of the terminal ileum consistent with terminal ileitis which is attributed to radiation that patient is here for metastatic breast cancer. CT scan abdomen also revealed metastatic diffuse lytic and sclerotic bone lesions as well as metastatic liver disease. On admission, patient was tachycardic, has leukocytosis. Her urinalysis revealed cloudy urine , positive for nitrite, positive for leukocyte esterase and he was 10-25 WBCs and 3+ bacteria. She was treated with IV fluids, IV Rocephin, IV pain medications and IV antiemetics. With treatment, recent symptoms improved and she was able to tolerate clear liquid diet. Her lactic acid was normal. Blood culture showed no growth in 48 hours. Stool for C. difficile was negative. Stool for enteric pathogens was negative as well. With treatment, her white blood cell count returned back to normal. Her LFT and lipase were normal. Patient discharged home in a stable medical condition, discharged on ciprofloxacin 500 mg p.o. twice daily for 5 days, continued on her home medications without any changes, plan to follow-up with oncology this coming April, recommended follow-up with PCP in 2-3 weeks. Discharge Activity: Return to Normal Activity, May not drive while taking narcotic pain medications. Weight Bearing Status: Weight bearing as tolerated Call your doctor if you observe: Fever of 101 or Higher, Shortness of breath, Dizziness, Fainting spells, Chest pain, Increased palpitations (irregular heartbeat), Uncontrolled pain Home Medications: Medications to take at Discharge Hydrocodone Bitart/Apap 5-325 [[place] 5/325] 1 tablet PO Q6H PRN PRN #10 tablet 10/18/17 Dexamethasone 4 mg PO BID #30 tab 10/19/17 Lidocaine/Prilocaine [Lidocaine-Prilocaine Cream] 30 gm TP DAILY PRN PRN #1 cream..g. 10/19/17 Acetaminophen [Tylenol] 325 mg PO PRN PRN 02/13/18 Loperamide [Imodium] 2 mg PO Q2H PRN PRN 02/13/18 Senna [Senokot] 1 tablet PO DAILY PRN PRN 02/13/18 Loratadine/Pseudoephedrine [Claritin-D 12 Hour Tablet] 1 each PO UD 04/10/18 Fentanyl 25 mcg TD Q72H 04/19/18 Ondansetron [Zofran Odt] 8 mg PO Q8H PRN PRN 10 Days #30 tab 04/19/18 Fentanyl 25 mcg TOPICAL Q72H 04/29/18 Ciprofloxacin [Cipro] 500 mg PO BID #10 tab 05/01/18 Following Prescrptions Were Given to Patient: Ciprofloxacin [Cipro] 500 mg PO BID #10 tab Primary Care Physician: Care Physician,No Primary [Primary Care Provider] - Please follow up with your Primary Care Physician in: 2-3 weeks. Please Follow Up With: Carolina Pak MD When: as scheduled. Disposition: Home Minutes spent on discharge:: 33 Patient Condition:: Stable Medical Necessity - Tobacco Use Smoking Status: Former smoker Tobacco Use: Non-smoker Meaningful Use Info Meaningful Use Diagnoses (Choose all that apply): None applicable Code Visit Inpatient E&M: 43035 Disch Hosp
--- NOTE | 2018-05-03 10:55 | CASEMGMT ---
FOLLOW-UP CALL: Call placed to patient with no answer. Voicemail left with return contact information for case advocate.
== END 2018-05-01 11:18 | disposition home or self-care (01) | DRG 416 ==
LOC: ED 13:35 → MS3 16:23
PROVIDERS: Emergency Provider Emergency Medicine; Visit Provider Hospitalist
DX: A41.9 Sepsis, unspecified organism (principal); K52.0 Gastroenteritis and colitis due to radiation; C77.3 Secondary and unspecified malignant neoplasm of axilla and upper limb lymph nodes; C77.0 Secondary and unspecified malignant neoplasm of lymph nodes of head, face and neck; C79.31 Secondary malignant neoplasm of brain; C79.51 Secondary malignant neoplasm of bone; J44.9 Chronic obstructive pulmonary disease, unspecified; N30.00 Acute cystitis without hematuria; C50.912 Malignant neoplasm of unspecified site of left female breast; Z17.1 Estrogen receptor negative status [ER-]; Y84.2 Radiological procedure and radiotherapy as the cause of abnormal reaction of the patient, or of later complication, without mention of misadventure at the time of the procedure; D64.9 Anemia, unspecified; Z98.51 Tubal ligation status; Z87.891 Personal history of nicotine dependence; Z79.899 Other long term (current) drug therapy
CPT/HCPCS: 36591; 71045; 74177; 78306; 80048; 80076; 81001; 83605; 83690; 84484; 85025; 87040; 87086; 87088; 87493; 87506; 93005; 93306; 97802; 99281; J7030; J7040; J7050; Q9967; A4216; J2405

== ENCOUNTER → 2018-06-26 12:24 | Outpatient (CLI) | payer MEDICAID, SELFPAY ==
[2018-05-15 10:11] VITALS: BMI 25.3
--- NOTE | 2018-06-26 12:27 | RAD_ITS ---
STUDY: X-RAY - THORACIC SPINE REASON FOR EXAM: Female, 53 years old. Back pain. Breast cancer with metastases to the brain bone and lymph nodes. TECHNIQUE: 2 view(s) of the thoracic spine were obtained. COMPARISON: Bone scan, April 26, 2018. FINDINGS: There is mild exaggeration of kyphosis due to sclerosis and anterior wedging of what appears to be the T11 vertebra. Mildly increased density is seen throughout the thoracic spine consistent with diffuse metastatic disease. There is a questionable compression deformity of the superior endplate of L1. No other compression deformities are seen. There is no substantial scoliosis. There is multilevel endplate spondylosis of the thoracic vertebrae. Normal disc space heights. The soft tissue structures are unremarkable. There is a right jugular Port-A-Cath. RAD/Thoracic Spine 3 Views IMPRESSION: Diffuse sclerotic changes of the thoracic spine consistent with diffuse metastatic disease. There is anterior wedging of the T11 vertebra. Electronically Signed: Guevara Emanuel DO at 22:07 EDT Tel [phone], Service support ,
== END ==
PROVIDERS: Family Provider Family Medicine; PCP Family Medicine; Referring Provider Anesthesiology Pain Medicine; Visit Provider Anesthesiology Pain Medicine
DX: M54.6 Pain in thoracic spine (principal)
CPT/HCPCS: 72072

== ENCOUNTER → 2018-07-19 09:19 | Outpatient (CLI) | payer MEDICAID, SELFPAY ==
[2017-10-26 11:21] VITALS: BMI 22.3
[2018-05-15 10:11] VITALS: BMI 25.3
--- NOTE | 2018-07-19 09:39 | MRI_ITS ---
STUDY: MRI BRAIN WITH AND WITHOUT CONTRAST REASON FOR EXAM: Female, 53 years old. Breast carcinoma with brain metastases. Restaging after treatment. TECHNIQUE: Standardized multiplanar fat and water weighted pulse sequences were obtained. 7 ml of Gadavist contrast material was administered intravenously for the contrast portion of the examination. COMPARISON: 04/23/2018. FINDINGS: No restricted diffusion to suspect acute or subacute ischemic infarcts. Marked increase in number of in numerable enhancing metastatic mass lesions in both cerebellar hemispheres. There is also increased number of brain metastatic mass lesions in both cerebral hemispheres, the left cerebellar peduncle and in the right upper pontine tegmentum bordering the base of the right cerebral peduncle/substantia nigra. Normal ventricles and cisterns. No communicating or noncommunicating hydrocephalus. Periventricular white matter T2 FLAIR hyperintensity foci may be post radiation changes. The cortical and subcortical white matter T2 FLAIR hyperintensity foci correspond to the minimal edema associated with the brain metastatic mass lesions in the cerebral hemispheres and cerebellar hemispheres. Normal bilateral basal ganglia. Normal thalami. There is no extra-axial fluid accumulation. Normal flow voids within the major intracranial circulation suggesting patency by spin echo criteria. Normal venous enhancement. Normal sella turcica, pituitary gland, infundibular stalk, optic chiasm and hypothalamus. Normal tectal plate and pineal gland. The lower jose and medulla are normal. Innumerable cerebellar metastatic mass lesions. Normal basal cisterns. Normal bilateral temporal bones. Normal bilateral internal auditory canals. No demonstrated orbital abnormality, within the constraints of a routine brain study. Normal visualized paranasal sinuses. Normal calvarium and skull base. Normal visualized soft tissue structures. Normal visualized upper cervical spine. MRI/Brain W/WO Contrast IMPRESSION: Marked progression of brain metastatic disease, innumerable in the cerebellar hemispheres and additional brain metastatic mass lesions in both cerebral hemispheres, the left medial cerebral peduncle and in the right upper pontine tegmentum junction with the substantia nigra behind the right cerebral peduncle. Electronically Signed: Siddharth Chacon MD at 15:44 EDT , Service support ,
== END ==
PROVIDERS: Referring Provider Student in an Organized Health Care Education/Training Program; Visit Provider Student in an Organized Health Care Education/Training Program
DX: C79.31 Secondary malignant neoplasm of brain (principal)
CPT/HCPCS: 70553; A9585

== ENCOUNTER → 2018-07-24 13:45 | Outpatient (CLI) | payer MEDICAID, SELFPAY ==
[2018-05-15 10:11] VITALS: BMI 25.3
--- NOTE | 2018-07-24 13:47 | ECHODONC_ITS ---
Reason For Study: CARDIOTOXIC MEDS Procedure This was a 2D Doppler, Color Flow transthoracic echocardiogram. Myocardial strain analysis was performed in this exam to aid in the assessment of cardiac function. The exam was of adequate technical quality. Exam performed in department. Left Ventricle Normal LV size. Left ventricular systolic function is normal. The estimated ejection fraction is 65 %. The global longitudinal strain = -19 % (normal). Transmitral doppler flow suggestive of impaired relaxation of left ventricle. No regional wall motion abnormalities noted. Right Ventricle Normal RV size. Normal systolic function. Atria Normal left atrium. Normal right atrium. No doppler evidence for ASD. Mitral Valve There is no mitral annular calcification. Normal mitral valve. Trivial mitral valve insufficiency. Tricuspid Valve Normal tricuspid valve. Trivial tricuspid valve insufficiency. Aortic Valve Trisinus/trileaflet aortic valve. Normal aortic valve. Pulmonic Valve The pulmonic valve is not well visualized. Trivial pulmonic valve insufficiency. Great Vessels Normal sized aortic root. Pericardium/Pleural No pericardial effusion. MMode/2D Measurements & Calculations LVIDd: 4.3 cm IVSd: 0.69 cm Ao root diam: 3.2 cm LVIDs: 3.0 cm LVPWd: 0.80 cm FS: 29.0 % LAV(MOD-bp): 35.6 ml LVAd ap4: 25.9 cm2 SV(MOD-sp4): 43.0 ml LAV(MOD-bp) Indexed: 22.7 ml/m2 EDV(MOD-sp4): 71.4 ml LAV(MOD-sp2): 34.4 ml EDV(sp4-el): 74.2 ml LAV(MOD-sp4): 31.6 ml LVAs ap4: 14.6 cm2 ESV(MOD-sp4): 28.4 ml ESV(sp4-el): 29.5 ml EF(MOD-sp4): 60.2 % EF(sp4-el): 60.2 % SV(sp4-el): 44.7 ml LA A4 area: 14.0 cm2 LA dimension(2D): 3.3 cm RA A4 area: 12.8 cm2 Time Measurements MV dec time: 0.30 sec Doppler Measurements & Calculations MV E max demetrius: 58.3 cm/sec Lat Peak E' Demetrius: 7.9 cm/sec Med Peak E' Demetrius: 4.1 cm/sec MV A max demetrius: 67.2 cm/sec E/E' lat: 7.4 E/E' med: 14.1 MV E/A: 0.87 Ao V2 max: 123.0 cm/sec LV V1 max: 106.8 cm/sec Ao max P.1 mmHg LV V1 max P.6 mmHg Interpretation Summary Left ventricular systolic function is normal. The estimated ejection fraction is 65 %. The global longitudinal strain = -19 % (normal). Trivial mitral valve insufficiency. Trivial tricuspid valve insufficiency. Trivial pulmonic valve insufficiency. Transmitral doppler flow suggestive of impaired relaxation of left ventricle Ordering Physician: Carolina Pak Referring Physician: Carolina Pak Performed By: Cordelia Roberts, SAROJ, RVT
== END ==
PROVIDERS: Referring Provider Internal Medicine Hematology & Oncology; Visit Provider Internal Medicine Hematology & Oncology
DX: Z79.899 Other long term (current) drug therapy (principal); C50.612 Malignant neoplasm of axillary tail of left female breast; C79.51 Secondary malignant neoplasm of bone; C79.31 Secondary malignant neoplasm of brain
CPT/HCPCS: 0399T; 93306

== ENCOUNTER → 2018-07-31 08:42 | Outpatient (CLI) | payer MEDICAID, SELFPAY ==
[2018-05-15 10:11] VITALS: BMI 25.3
--- NOTE | 2018-07-31 08:43 | NM_ITS ---
CLINICAL: 53-year-old female with history of carcinoma of the breast. WHOLE BODY 99m Tc MDP RADIONUCLIDE BONE SCINTIGRAPHY COMPARISON: Previous whole body bone scintigraphy study dated 04/26/2018 FINDINGS: Following the intravenous administration of 22.7 mCi of 99m Tc MDP, whole body bone images reveal: 1. Innumerable foci of increased radiopharmaceutical concentration persist in the appendicular and axial skeletal structures with no definitive interval change in the overall number and intensity of uptake, compared to the previous examination dated 04/26/2018. 2. Facilitated tracer concentration is presently visualized in the acromioclavicular compartments of both shoulders, the left wrist, right and left elbows. 3. The remaining skeletal structures are scintigraphically unremarkable with normal-appearing renal images and urinary bladder activity identified. NM/Bone Scan Whole Body IMPRESSION: 1. The increase in radiopharmaceutical concentration redemonstrated throughout the visualized appendicular and axial skeleton structures remains consistent with osteoblastic turnover associated with disseminated skeletal metastatic disease. 2. Facilitated uptake presently defined in the bilateral shoulders, elbows bilaterally and left wrist instruments were with degenerative arthritis. 3. Overall compared to the previous whole body bone scintigraphy study dated 04/26/2018, there is persistently visualized multifocal osseous metastatic disease, unchanged from the previous examination. Electronically Signed: Juan Blount DO at 10:05 EST Tel , Service support ,
== END ==
PROVIDERS: Family Provider Family Medicine; PCP Family Medicine; Referring Provider Internal Medicine Hematology & Oncology; Visit Provider Internal Medicine Hematology & Oncology
DX: C50.912 Malignant neoplasm of unspecified site of left female breast (principal); C77.9 Secondary and unspecified malignant neoplasm of lymph node, unspecified; C79.51 Secondary malignant neoplasm of bone; C79.31 Secondary malignant neoplasm of brain
CPT/HCPCS: 78306

== ENCOUNTER → 2018-08-02 13:00 | Outpatient (CLI) | payer MEDICAID, SELFPAY ==
[2018-05-15 10:11] VITALS: BMI 25.3
--- NOTE | 2018-08-02 13:01 | CT_ITS ---
STUDY: CT ABDOMEN WITH CONTRAST REASON FOR EXAM: Female, 53 years old. History of breast cancer metastases. Restaging disease progression. RADIATION DOSAGE (If Supplied By Facility): CTDIvol = ( 9.35 ) mGy, DLP = ( 694.67 ) mGycm TECHNIQUE: Transaxial images were obtained post I.V. administration of 100 ml of Isovue 300 contrast, and without oral contrast. Sagittal and coronal images were reconstructed. Individualized dose optimization techniques were used for this CT. COMPARISON: CT scan abdomen 04/29/2018. FINDINGS: There are emphysematous changes in the visualized posterior lower lung benavidez. The visualized portions of the heart are within normal limits. Normal liver. Normal gallbladder and extrahepatic biliary system. Normal spleen. Normal pancreas. Normal bilateral adrenal glands. Normal right kidney. Normal left kidney. There is a small hiatal hernia. Normal small intestine. Normal colon. The appendix is visualized on axial images 62-73 and it appears normal.. There is mild atherosclerotic calcification of the abdominal aorta with elongation and tortuosity, but without a demonstrated aneurysm. Normal inferior vena cava. Normal retroperitoneum. There is seen on axial images 26-30, there is a 1.3 x 2.2 cm nodule in the left anterior skin and subcutaneous fat of the upper abdomen, not significantly changed in size from previous study, by my measurement. There is a small umbilical hernia containing fat, but no bowel. There are extensive osteolytic and osteoblastic metastatic lesions in the visualized pelvis, ribs, and spine, which are not significantly changed. CT/Abdomen WITH IV Contrast IMPRESSION: Redemonstration of a left anterior abdominal skin nodule, not significantly different from previous study. This is of uncertain significance. No other evidence for soft tissue masses or lymphadenopathy. Atherosclerosis. Extensive osteolytic and osteoblastic metastatic disease, with no definite change. Electronically Signed: Ananth Murillo MD at 5:07 EST , Service support ,
--- NOTE | 2018-08-02 13:01 | CT_ITS ---
STUDY: CT CHEST WITH CONTRAST REASON FOR EXAM: Female, 53 years old. Restaging disease progression RADIATION DOSAGE (If Supplied By Facility): CTDIvol = ( 9.35 ) mGy, DLP = ( 694.67 ) mGycm TECHNIQUE: Transaxial imaging was performed following intravenous administration of 100 ml of Isovue 300 contrast material. Multiplanar coronal and sagittal images were reformatted. Individualized dose optimization techniques were used for this CT. COMPARISON: October 12, 2017 CT chest FINDINGS: There is a persistent pattern of emphysematous change within the lungs especially in the lung apices and in the bilateral lower lobes. There is no visualized acute focal consolidation pleural effusion pulmonary edema or pneumothorax or evidence of suspicious pulmonary nodules. There is no demonstrated pleural abnormality. There is mild cardiac enlargement. Normal mediastinum. Normal hilar regions. Normal enhanced pulmonary arteries. Normal aorta arch and descending thoracic aorta. There is a widespread appearance of sclerotic and lytic lesions throughout the visualized ribs and thoracic spine. There is wedging of the T11 and T12 vertebral bodies. The liver appears fairly homogeneous without visualized mass. There is a left to midline upper abdomen subcutaneous mass image #106 measuring 1.9 x 2.2 cm. Within the right medial soft tissues there is a mass that measures 1.1 x 1.9 cm. The breast tissue appears fairly symmetric. There is a right-sided Port-A-Cath demonstrated. There is a fatty infiltrated lymph node on the right. CT/Chest WITH Contrast IMPRESSION: Multifocal advanced bony metastasis. Right-sided Port-A-Cath No visualized evidence of pulmonary metastasis. Advanced pulmonary emphysema. Area of nonspecific soft tissue masses which may represent sebaceous cyst stable when compared to the prior study. Electronically Signed: Monisha Stringer MD at 20:00 EST Tel , Service support ,
== END ==
PROVIDERS: Family Provider Family Medicine; PCP Family Medicine; Referring Provider Internal Medicine Hematology & Oncology; Visit Provider Internal Medicine Hematology & Oncology
DX: C50.912 Malignant neoplasm of unspecified site of left female breast (principal); C77.9 Secondary and unspecified malignant neoplasm of lymph node, unspecified; C79.31 Secondary malignant neoplasm of brain; C79.51 Secondary malignant neoplasm of bone
CPT/HCPCS: 71260; 74160; Q9967; A4216

== ENCOUNTER → 2018-08-28 09:41 | Outpatient (CLI) | payer MEDICAID, SELFPAY ==
[2018-05-15 10:11] VITALS: BMI 25.3
[2018-08-28 08:21] VITALS: BMI 27.0
--- NOTE | 2018-08-28 09:50 | RAD_ITS ---
STUDY: X-RAY CHEST REASON FOR EXAM: Female, 53 years old. Cough. Elevated white cell count. Patient has a history of a wrist carcinoma with chemotherapy. TECHNIQUE: PA and lateral views of the chest. COMPARISON: Comparison is made with prior study April 29, 2008. FINDINGS: A right-sided angel catheter is in situ with the tip in the proximal portion of the superior vena cava. The lungs are clear and expanded. Scattered calcified granulomas. There is no demonstrated pleural abnormality. Normal size heart. Normal mediastinum and anjel. Normal visualized pulmonary arteries. Normal visualized aortic arch and descending thoracic aorta. There are degenerative changes of the visualized thoracic spine. Loss of height of the upper lumbar vertebrae. Prostatic disease should be ruled out. Abnormal sclerotic density seen in both humeral heads. This is suggestive of possible bone metastasis. There is no demonstrated abnormality of the visualized soft tissue structures of the upper abdomen. RAD/Chest PA and Lateral IMPRESSION: The lungs are clear. Findings suggestive of possible metastasis involving both humeral heads and upper lumbar vertebrae. Electronically Signed: Edgar Flannery MD at 15:56 EST Tel [phone], Service support ,
== END ==
PROVIDERS: Family Provider Family Medicine; PCP Family Medicine; Referring Provider Nurse Practitioner Family; Visit Provider Nurse Practitioner Family
DX: R05 Cough (principal); D72.829 Elevated white blood cell count, unspecified
CPT/HCPCS: 36415; 71046; 81001; 85025; 87040; 87070; 87086; 87205

== ENCOUNTER → 2018-09-04 09:45 | Outpatient (CLI) | payer MEDICAID, SELFPAY ==
[2018-05-15 10:11] VITALS: BMI 25.3
[2018-08-28 08:21] VITALS: BMI 27.0
[2018-09-04 08:40] LABS: Absolute Neutrophil Count 5.9 X10^3/uL (2.0-7.7); Basophil# 0.02 X10^3/uL; Basophil% 0.2 % (0-1); Eosinophil# 0.06 X10^3/uL; Eosinophils% 0.7 % (0-5); Hematocrit 36.6 % (37-47); Hemoglobin 11.6 g/dl (12.0-15.0); Lymphocyte % 15.3 % (19-41); Mean Corp Hgb Conc 31.7 g/gl (32-36); Mean Corpuscular Hgb 30.9 pg (27.0-32.0); Mean Corpuscular Volume 97.3 fL (81-99); Mean Platelet Vol. 8.9 fl (6.2-12.0); Monocyte# 1.08 X10^3/uL; Monocyte% 12.7 % (0-10); Neutrophil # 5.87 X10^3/uL (2.7-7.7); Neutrophil % 69.3 % (47-70); POSITIVE COUNT NO; POSITIVE DIFFERENTIAL NO; POSITIVE MORPHOLOGY NO; Platelet Count 304 K/mm3 (150-450); RBC Distribution Width CV 16.5 % (11.6-14.6); RBC Distribution Width SD 51.7 fl (35.1-43.9); Red Blood Count 3.76 M/mm3 (4.2-5.4); White Blood Count 8.5 K/mm3 (4.4-11.0)
[2018-09-04 08:47] VITALS: BMI 26.8
--- NOTE | 2018-09-04 09:48 | ECHODONC_ITS ---
Reason For Study: HTN, CARDIOTOXIC DRUG THERAPY Procedure This was a 2D Doppler, Color Flow transthoracic echocardiogram. Myocardial strain analysis was performed in this exam to aid in the assessment of cardiac function. The exam was of adequate technical quality. Exam performed in department. Left Ventricle Normal LV size. Left ventricular systolic function is normal. The estimated ejection fraction is 65 %. The global longitudinal strain = -19 % (normal). Diastolic function is indeterminate. No regional wall motion abnormalities noted. Right Ventricle Normal RV size. Normal systolic function. Atria Normal left atrium. Normal right atrium. No doppler evidence for ASD. Mitral Valve There is no mitral annular calcification. Normal mitral valve. Trivial mitral valve insufficiency. Tricuspid Valve Normal tricuspid valve. Trivial tricuspid valve insufficiency. Right ventricular systolic pressure estimated to be 27 mmHg. Aortic Valve Trisinus/trileaflet aortic valve. Normal aortic valve. Pulmonic Valve The pulmonic valve is not well visualized. Trivial pulmonic valve insufficiency. Great Vessels Normal sized aortic root. Pericardium/Pleural No pericardial effusion. MMode/2D Measurements & Calculations LVIDd: 4.4 cm IVSd: 0.81 cm Ao root diam: 3.2 cm LVIDs: 3.1 cm LVPWd: 0.70 cm RVDd: 3.7 cm FS: 29.2 % LAV(MOD-bp): 27.6 ml EDV(MOD-sp4): 78.3 ml EDV(MOD-sp2): 58.2 ml LAV(MOD-bp) Indexed: 17.3 ml/m2 ESV(MOD-sp4): 31.4 ml EF(MOD-sp2): 67.9 % LAV(MOD-sp2): 29.7 ml EF(MOD-sp4): 59.9 % LAV(MOD-sp4): 25.4 ml SV(MOD-sp4): 46.8 ml SV(MOD-sp2): 39.5 ml LA A4 area: 12.2 cm2 LA dimension(2D): 3.7 cm RA A4 area: 10.2 cm2 Time Measurements MV dec time: 0.20 sec Doppler Measurements & Calculations MV E max demetrius: 80.3 cm/sec Lat Peak E' Demetrius: 8.8 cm/sec Med Peak E' Demetrius: 5.0 cm/sec MV A max demetrius: 73.2 cm/sec E/E' lat: 9.1 E/E' med: 16.0 MV E/A: 1.1 Ao V2 max: 121.4 cm/sec LV V1 max: 105.6 cm/sec PA V2 max: 99.0 cm/sec Ao max P.9 mmHg LV V1 max P.5 mmHg TR max demetrius: 242.7 cm/sec TR max P.7 mmHg Interpretation Summary Left ventricular systolic function is normal. The estimated ejection fraction is 65 %. The global longitudinal strain = -19 % (normal). Trivial mitral valve insufficiency. Trivial tricuspid valve insufficiency. Trivial pulmonic valve insufficiency. Right ventricular systolic pressure estimated to be 27 mmHg. Diastolic function is indeterminate. Ordering Physician: Mar Medrano Referring Physician: Mar Medrano Performed By: Cordelia Roberts, SAROJ, RVT
[2018-09-04 16:26] LABS: Xtra Tube EP Lab EXTRA TUBE
--- OUTSIDE RECORDS SUMMARY | 2018-10-21 09:08 | XMS RPT_ITS ---
:1965 Author Organization OHIP Support Name Relationship Address Phone D Unavailable Unavailable Unavailable ANTUNEZ, DANNY Unavailable [address] + [place] [address] D Unavailable Unavailable Unavailable ANTUNEZ, DANNY Unavailable [address] + [place] [address] D Unavailable Unavailable Unavailable ANTUNEZ, DANNY Unavailable [address] + [place] [address] D Unavailable Unavailable Unavailable ANTUNEZ, DANNY Unavailable [address] + [place] [address] D Unavailable Unavailable Unavailable ANTUNEZ, DANNY Unavailable [address] + [place] [address] D Unavailable Unavailable Unavailable ANTUNEZ, DANNY Unavailable [address] + [place] [address] D Unavailable Unavailable Unavailable ANTUNEZ, DANNY Unavailable [address] + [place] [address] D Unavailable Unavailable Unavailable ANTUNEZ, DANNY Unavailable [address] + [place] [address] D Unavailable Unavailable Unavailable ANTUNEZ, DANNY Unavailable [address] + [place] [address] D Unavailable Unavailable Unavailable ANTUNEZ, DANNY Unavailable [address] + [place] [address] D Unavailable Unavailable Unavailable ANTUNEZ, DANNY Unavailable [address] + [place] [address] D Unavailable Unavailable Unavailable ANTUNEZ, DANNY Unavailable [address] + [place] [address] D Unavailable Unavailable Unavailable ANTUNEZ, DANNY Unavailable [address] + [place] [address] D Unavailable Unavailable Unavailable ANTUNEZ, DANNY Unavailable [address] + [place] [address] D Unavailable Unavailable Unavailable ANTUNEZ, DANNY Unavailable [address] + [place] [address] D Unavailable Unavailable Unavailable ANTUNEZ, DANNY Unavailable [address] + [place] [address] D Unavailable Unavailable Unavailable ANTUNEZ, DANNY Unavailable [address] + [place] [address] D Unavailable Unavailable Unavailable ANTUNEZ, DANNY Unavailable [address] + [place] [address] D Unavailable Unavailable Unavailable ANTUNEZ, DANNY Unavailable [address] + [place] [address] D Unavailable Unavailable Unavailable ANTUNEZ, DANNY Unavailable [address] + [place] [address] D Unavailable Unavailable Unavailable ANTUNEZ, DANNY Unavailable [address] + [place] [address] D Unavailable Unavailable Unavailable ANTUNEZ, DANNY Unavailable [address] + [place] [address] D Unavailable Unavailable Unavailable ANTUNEZ, DANNY Unavailable [address] + [place] [address] D Unavailable Unavailable Unavailable ANTUNEZ, DANNY Unavailable [address] + [place] [address] D Unavailable Unavailable Unavailable ANTUNEZ, DANNY Unavailable [address] + [place] [address] D Unavailable Unavailable Unavailable ANTUNEZ, DANNY Unavailable [address] + [place] [address] D Unavailable Unavailable Unavailable ANTUNEZ, DANNY Unavailable [address] + [place] [address] D Unavailable Unavailable Unavailable ANTUNEZ, DANNY Unavailable [address] + [place] [address] D Unavailable Unavailable Unavailable ANTUNEZ, DANNY Unavailable [address] + [place] [address] D Unavailable Unavailable Unavailable ANTUNEZ, DANNY Unavailable [address] + [place] [address] D Unavailable Unavailable Unavailable ANTUNEZ, DANNY Unavailable [address] + [place] [address] D Unavailable Unavailable Unavailable ANTUNEZ, DANNY Unavailable [address] + [place] [address] D Unavailable Unavailable Unavailable ANTUNEZ, DANNY Unavailable [address] + [place] [address] D Unavailable Unavailable Unavailable ANTUNEZ, DANNY Unavailable [address] + [place] [address] D Unavailable Unavailable Unavailable ANTUNEZ, DANNY Unavailable [address] + [place] [address] BUE Unavailable [address] + [address] [facility] [place] [address] ANTUNEZ, DANNY Unavailable [address] + [place] [address] D Unavailable Unavailable Unavailable ANTUNEZ, DANNY Unavailable [address] + [place] [address] D Unavailable Unavailable Unavailable ANTUNEZ, DANNY Unavailable [address] + [place] [address] D Unavailable Unavailable Unavailable ANTUNEZ, DANNY Unavailable [address] + [place] [address] D Unavailable Unavailable Unavailable ANTUNEZ, DANNY Unavailable [address] + [place] [address] D Unavailable Unavailable Unavailable ANTUNEZ, DANNY Unavailable [address] + [place] [address] D Unavailable Unavailable Unavailable ANTUNEZ, DANNY Unavailable [address] + [place] [address] D Unavailable Unavailable Unavailable ANTUNEZ, DANNY Unavailable [address] + [place] [address] D Unavailable Unavailable Unavailable ANTUNEZ, DANNY Unavailable [address] + [place] [address] BUE Unavailable [address] + [address] [facility] [place] [address] BELLEVUE, DANNY Unavailable [address] + [place] [address] BUE Unavailable [address] + [address] [place] [address] BELLEVUE, DANNY Unavailable [address] + [place] [address] BUE Unavailable [address] + [address] [place] [address] BELLEVUE, DANNY Unavailable [address] + [place] [address] BUE Unavailable [address] + [address] [place] [address] BELLEVUE, DANNY Unavailable [address] + [place] [address] BUE Unavailable [address] [facility] [place] [address] BELLEVUE, DANNY Unavailable [address] + [place] [address] BUE Unavailable [address] + [address] [place] [address] BELLEVUE, DANNY Unavailable [address] + [place] [address] D Unavailable Unavailable Unavailable BELLEVUE, DANNY Unavailable [address] + [place] [address] BUE Unavailable [address] + [address] [place] [address] BELLEVUE, DANNY Unavailable [address] + [place] [address] BUE Unavailable [address] + [address] [place] [address] BELLEVUE, DANNY Unavailable [address] + [place] [address] D Unavailable Unavailable Unavailable BELLEVUE, DANNY Unavailable [address] + [place] [address] BUE Unavailable [address] + [address] [place] [address] ANTUNEZ, DANNY Unavailable [address] + [place] [address] BUE Unavailable [address] + [address] [place] [address] ANTUNEZ, DANNY Unavailable [address] + [place] [address] BUE Unavailable [address] + [address] [place] [address] ANTUNEZ, DANNY Unavailable [address] + [place] [address] D Unavailable Unavailable Unavailable ANTUNEZ, DANNY Unavailable [address] + [place] [address] D Unavailable Unavailable Unavailable ANTUNEZ, DANNY Unavailable [address] + [place] [address] ANTUNEZ, DANNY Unavailable Unavailable Unavailable ANTUNEZ, LINDSAY Unavailable Unavailable Unavailable D Unavailable Unavailable Unavailable ANTUNEZ, DANNY Unavailable [address] + [place] [address] ANTUNEZ, DANNY Unavailable Unavailable Unavailable ANTUNEZ, LINDSAY Unavailable Unavailable Unavailable D Unavailable Unavailable Unavailable ANTUNEZ, DANNY Unavailable [address] + [place] [address] BUE Unavailable [address] + [address] [place] [address] ANTUNEZ, DANNY Unavailable [address] + [place] [address] BUE Unavailable [address] + [address] [place] [address] ANTUNEZ, DANNY Unavailable [address] + [place] [address] BUE Unavailable [address] + [address] [place] [address] ANTUNEZ, DANNY Unavailable [address] + [place] [address] BUE Unavailable [address] + [address] [place] [address] ANTUNEZ, DANNY Unavailable [address] + [place] [address] BUE Unavailable [address] + [address] [place] [address] ANTUNEZ, DANNY Unavailable [address] + [place] [address] ANTUNEZ, DANNY Unavailable Unavailable Unavailable ANTUNEZ, LINDSAY Unavailable Unavailable Unavailable ANTUNEZ, DANNY Unavailable Unavailable Unavailable ANTUNEZ, LINDSAY Unavailable Unavailable Unavailable ANTUNEZ, DANNY Unavailable Unavailable Unavailable ANTUNEZ, LINDSAY Unavailable Unavailable Unavailable ANTUNEZ, DANNY Unavailable Unavailable Unavailable ANTUNEZ, LINDSAY Unavailable Unavailable Unavailable ANTUNEZ, DANNY Unavailable Unavailable Unavailable ANTUNEZ, LINDSAY Unavailable Unavailable Unavailable BUE Unavailable [address] + [address] [place] [address] ANTUNEZ, DANNY Unavailable [address] + [place] [address] ANTUNEZ, DANNY Unavailable Unavailable Unavailable ANTUNEZ, LINDSAY Unavailable Unavailable Unavailable ANTUNEZ, DANNY Unavailable Unavailable Unavailable ANTUNEZ, LINDSAY Unavailable Unavailable Unavailable ANTUNEZ, DANNY Unavailable Unavailable Unavailable ANTUNEZ, LINDSAY Unavailable Unavailable Unavailable ANTUNEZ, DANNY Unavailable Unavailable Unavailable ANTUNEZ, LINDSAY Unavailable Unavailable Unavailable BUE Unavailable [address] + [address] [place] [address] ANTUNEZ, DANNY Unavailable [address] + [place] [address] BUE Unavailable [address] + [address] [place] [address] ANTUNEZ, DANNY Unavailable [address] + [place] [address] BUE Unavailable [address] + [address] [place] [address] ANTUNEZ, DANNY Unavailable [address] + [place] [address] BUE Unavailable [address] + [address] [place] [address] ANTUNEZ, DANNY Unavailable [address] + [place] [address] BUE Unavailable [address] + [address] [place] [address] ANTUNEZ, DANNY Unavailable [address] + [place] [address] BUE Unavailable [address] + [address] [place] [address] ANTUNEZ, DANNY Unavailable [address] + [place] [address] BUE Unavailable [address] + [address] [place] [address] ANTUNEZ, DANNY Unavailable [address] + [place] [address] BUE Unavailable [address] + [address] [place] [address] BELLEVUE, DANNY Unavailable [address] + [place] [address] BUE Unavailable [address] + [address] [place] [address] BELLEVUE, DANNY Unavailable [address] + [place] [address] BUE Unavailable [address] + [address] [place] [address] BELLEVUE, DANNY Unavailable [address] + [place] [address] BUE Unavailable [address] + [address] [place] [address] BELLEVUE, DANNY Unavailable [address] + [place] [address] BUE Unavailable [address] + [address] [place] [address] ANTUNEZ, DANNY Unavailable [address] + [place] [address] BUE Unavailable [address] + [address] [place] [address] ANTUNEZ, DANNY Unavailable [address] + [place] [address] BUE Unavailable [address] + [address] [place] [address] ANTUNEZ, DANNY Unavailable [address] + [place] [address] BUE Unavailable [address] [place] [address] DANNY ANTUNEZ Unavailable [address] + [place] [address] Care Team Providers Name Role Phone PRETTY BANG (WARD NURSE) Referring Unavailable PRETTY BANG (WARD NURSE) Attending Unavailable OSCAR ALEJANDRO Alberto Attending Unavailable KEV SCHROEDER Referring Unavailable OSCAR, ALEJANDRO D Attending Unavailable OSCAR, ALEJANDRO D Referring Unavailable OSCAR, ALEJANDRO D Attending Unavailable OSCAR, ALEJANDRO D Referring Unavailable OSCAR, ALEJANDRO D Attending Unavailable OSCAR, ALEJANDRO D Referring Unavailable OSCAR, ALEJANDRO D Attending Unavailable SELF, SELF Referring Unavailable OSCAR, ALEJANDRO D Attending Unavailable OSCAR, ALEJANDRO D Referring Unavailable OSCAR, ALEJANDRO D Attending Unavailable OSCAR, ALEJANDRO D Referring Unavailable OSCAR, ALEJANDRO D Attending Unavailable OSCAR, ALEJANDRO D Referring Unavailable ANUEL CHARLES Attending Unavailable OSCAR, ALEJANDRO D Referring Unavailable OSCAR, ALEJANDRO D Attending Unavailable OSCAR, ALEJANDRO D Referring Unavailable OSCAR, ALEJANDRO D Attending Unavailable SELF, SELF Referring Unavailable Carolina Pak Attending Unavailable Darwin, Bran Referring Unavailable Primay Care Physicia, No Primary Care Unavailable Luiskarus, Carolina Consulting Unavailable Carolina Pak Attending Unavailable Darwin, Bran Referring Unavailable Primay Care Physicia, No Primary Care Unavailable Pahsa, Carolina Consulting Unavailable Kev Schroeder Attending Unavailable Kev Schroeder Referring Unavailable Primay Care Physicia, No Primary Care Unavailable Amilcar Rees Attending Unavailable Mitchell, Mar Referring Unavailable Mitchell, Mar Attending Unavailable Mitchell, Mar Referring Unavailable Primay Care Physicia, No Primary Care Unavailable Mitchell, Mar Attending Unavailable Cebul, Bran Referring Unavailable Primay Care Physicia, No Primary Care Unavailable Isckarus, Carolina Consulting Unavailable Darwin Bran Attending Unavailable Cebul, Bran Referring Unavailable Primay Care Physicia, No Primary Care Unavailable Carolina Pak Attending Unavailable Primay Care Physicia, No Primary Care Unavailable Darwin, Bran Referring Unavailable Isckarus, Mansour Attending Unavailable Isckarus, Mansour Referring Unavailable Primay Care Physicia, No Primary Care Unavailable Isckarus, Mansour Consulting Unavailable Isckarus, Mansour Attending Unavailable Isckarus, Mansour Referring Unavailable Primay Care Physicia, No Primary Care Unavailable Cebul Bran Attending Unavailable Primay Care Physicia, No Referring Unavailable Primay Care Physicia, No Primary Care Unavailable Isckarus, Juveour Attending Unavailable Cebul Bran Referring Unavailable Primay Care Physicia, No Primary Care Unavailable Isckarus, Mansour Consulting Unavailable Isckarus, Mansour Attending Unavailable Isckarus, Mansour Referring Unavailable Primay Care Physicia, No Primary Care Unavailable Mitchell, Mar Consulting Unavailable Mitchell, Mar Attending Unavailable Cebul, Bran Referring Unavailable Primay Care Physicia, No Primary Care Unavailable Isckarus, Mansour Consulting Unavailable Mitchell, Mar Attending Unavailable Isckarus, Mansour Referring Unavailable Primay Care Physicia, No Primary Care Unavailable Isckarus, Mansour Consulting Unavailable Mitchell, Mar Attending Unavailable Mitchell, Mar Referring Unavailable Primay Care Physicia, No Primary Care Unavailable Basali Ayaurora Attending Unavailable Basali Ayman Referring Unavailable Cebul III, En Primary Care Unavailable Isckarus, Mansour Attending Unavailable Isckarus, Mansour Referring Unavailable Cebul III, En Primary Care Unavailable Isckarus, Mansour Attending Unavailable Isckarus, Mansour Referring Unavailable Primay Care Physicia, No Primary Care Unavailable Isckarus, Mansour Consulting Unavailable Kev Schroeder Attending Unavailable Isckarus, Mansour Referring Unavailable Primay Care Physicia, No Primary Care Unavailable Isckarus, Mansour Consulting Unavailable Isckarus, Mansour Attending Unavailable Isckarus, Mansour Referring Unavailable Primay Care Physicia, No Primary Care Unavailable Isckarus, Mansour Attending Unavailable Isckarus, Mansour Referring Unavailable Cebul III, En Primary Care Unavailable Isckarus, Mansour Attending Unavailable Isckarus, Mansour Referring Unavailable Primay Care Physicia, No Primary Care Unavailable Isckarus, Mansour Consulting Unavailable Isckarus, Mansour Attending Unavailable Isckarus, Mansour Referring Unavailable Primay Care Physicia, No Primary Care Unavailable Isckarus, Mansour Consulting Unavailable Cebul Bran Attending Unavailable Isckarus, Mansour Attending Unavailable Cebul, Bran Referring Unavailable Primay Care Physicia, No Primary Care Unavailable Isckarus, Mansour Consulting Unavailable Berhane Murray Attending Unavailable Isckarus, Mansour Referring Unavailable Mitchell, Mar Attending Unavailable Cebul, Bran Referring Unavailable Primay Care Physicia, No Primary Care Unavailable Isckarus, Mansour Consulting Unavailable Mitchell, Mar Attending Unavailable Primay Care Physicia, No Primary Care Unavailable Isckarus, Mansour Attending Unavailable Cebul, Bran Referring Unavailable Primay Care Physicia, No Primary Care Unavailable Isckarus, Mansour Consulting Unavailable Isckarus, Mansour Attending Unavailable Cebul, Bran Referring Unavailable Primay Care Physicia, No Primary Care Unavailable Isckarus, Mansour Consulting Unavailable CIARRA VILLAREAL Attending Unavailable Primay Care Physicia, No Primary Care Unavailable Lauro Anderson Referring Unavailable Isckarus, Mansgenny Attending Unavailable Cebul, Bran Referring Unavailable Primay Care Physicia, No Primary Care Unavailable Isckarus, Mansour Consulting Unavailable Kev Schroeder Attending Unavailable Cebul, Bran Referring Unavailable Primay Care Physicia, No Primary Care Unavailable Isckarus, Mansour Consulting Unavailable Isckarus, Mansour Attending Unavailable Isckarus, Mansour Referring Unavailable Primay Care Physicia, No Primary Care Unavailable Mitchell, Mar Attending Unavailable Mitchell, Mar Referring Unavailable Primay Care Physicia, No Primary Care Unavailable Mitchell, Mar Attending Unavailable Cebul, Bran Referring Unavailable Primay Care Physicia, No Primary Care Unavailable Isckarus, Mansour Consulting Unavailable Kev Schroeder Attending Unavailable CebulBran Referring Unavailable Primay Care Physicia, No Primary Care Unavailable Isckarus, Mansour Consulting Unavailable Kev Schroeder Attending Unavailable CebulBran Referring Unavailable Primay Care Physicia, No Primary Care Unavailable Isckarus, Mansour Consulting Unavailable Isckarus, Mansour Attending Unavailable Cebul, Bran Referring Unavailable Primay Care Physicia, No Primary Care Unavailable Isckarus, Mansour Consulting Unavailable Kev Schroeder Attending Unavailable Kev Schroeder Referring Unavailable Kev Schroeder Attending Unavailable Kev Schroeder Referring Unavailable Amilcar Rees Attending Unavailable Isckarus, Carolina Attending Unavailable Cebul, Bran Referring Unavailable Primay Care Physicia, No Primary Care Unavailable Isckarus, Mansour Consulting Unavailable MalissabuBran riley Attending Unavailable Kev Schroeder Attending Unavailable Cebul Bran Referring Unavailable Primay Care Physicia, No Primary Care Unavailable Isckarus, Mansour Consulting Unavailable Isckarus, Mansour Attending Unavailable Ceburosemary Bran Referring Unavailable Primay Care Physicia, No Primary Care Unavailable Isckarus, Mansour Consulting Unavailable Mitchell, Mar Attending Unavailable Darwin Bran Referring Unavailable Primay Care Physicia, No Primary Care Unavailable Isckarus, Mansour Consulting Unavailable Mitchell, Mar Attending Unavailable Mitchell, Mar Referring Unavailable Cebul III, En Primary Care Unavailable Isckarus, Mansour Attending Unavailable Isckarus, Mansour Referring Unavailable Primay Care Physicia, No Primary Care Unavailable Isckarus, Mansour Attending Unavailable Isckarus, Mansour Referring Unavailable Primay Care Physicia, No Primary Care Unavailable Primay Care Physicia, No Primary Care Unavailable Jopperi, Iglesia Admitting Unavailable Ashelfah, Ghasem Attending Unavailable Mitchell, Mar Consulting Unavailable Jopperi, Iglesia Attending Unavailable Primay Care Physicia, No Primary Care Unavailable Jopperi, Iglesia Admitting Unavailable Ashelfah, Ghasem Attending Unavailable Primay Care Physicia, No Primary Care Unavailable Mitchell, Mar Consulting Unavailable Ashelfah, Ghasem Consulting Unavailable Jopperi, Iglesia Admitting Unavailable Ashelfah, Ghasem Attending Unavailable Primay Care Physicia, No Primary Care Unavailable Mitchell, Mar Consulting Unavailable Ashelfah, Ghasem Consulting Unavailable Jopperi, Iglesia Admitting Unavailable Mitchell, Mar Attending Unavailable Primay Care Physicia, No Primary Care Unavailable Mitchell, Mar Consulting Unavailable Ashelfah, Ghasem Consulting Unavailable Isckarus, Mansour Attending Unavailable Ceburosemary Bran Referring Unavailable Primay Care Physicia, No Primary Care Unavailable Isckarus, Mansour Consulting Unavailable Isckarus, Mansour Attending Unavailable Ceburosemary Bran Referring Unavailable Primay Care Physicia, No Primary Care Unavailable Isckarus, Mansour Consulting Unavailable Isckarus, Mansour Attending Unavailable Cebul Bran Referring Unavailable Primay Care Physicia, No Primary Care Unavailable Isckarus, Mansour Consulting Unavailable Kev Schroeder Attending Unavailable MalissabulBran Referring Unavailable Primay Care Physicia, No Primary Care Unavailable Isckarus, Mansour Consulting Unavailable Isckarus, Mansour Attending Unavailable Darwin, Bran Referring Unavailable Primay Care Physicia, No Primary Care Unavailable Isckarus, Mansour Consulting Unavailable RoblespaAmilcar fernandez Attending Unavailable Isckarus, Mansour Referring Unavailable Isckarus, Juveour Attending Unavailable Cebul, Bran Referring Unavailable Primay Care Physicia, No Primary Care Unavailable Isckarus, Mansour Consulting Unavailable Isckarus, Mansour Attending Unavailable Cebul, Bran Referring Unavailable Primay Care Physicia, No Primary Care Unavailable Isckarus, Mansour Consulting Unavailable Isckarus, Mansour Attending Unavailable Cebul, Bran Referring Unavailable Primay Care Physicia, No Primary Care Unavailable Isckarus, Mansour Consulting Unavailable BasaliLauro Attending Unavailable BasaliLauro Referring Unavailable Cebul III, En Primary Care Unavailable Isckarus, Mansour Attending Unavailable Cebul, Bran Referring Unavailable Primay Care Physicia, No Primary Care Unavailable Isckarus, Mansour Consulting Unavailable Isckarus, Carolina Attending Unavailable Cebul, Bran Referring Unavailable Primay Care Physicia, No Primary Care Unavailable Isckarus, Mansour Consulting Unavailable Isckarus, Juveour Attending Unavailable Cebul, Bran Referring Unavailable Primay Care Physicia, No Primary Care Unavailable Isckarus, Mansour Consulting Unavailable Kev Schroeder Attending Unavailable Kev Schroeder Referring Unavailable Primay Care Physicia, No Primary Care Unavailable Isckarus, Juveour Attending Unavailable Isckarus, Juveour Referring Unavailable Primay Care Physicia, No Primary Care Unavailable Kev Schroeder Attending Unavailable Cebul, Bran Referring Unavailable Primay Care Physicia, No Primary Care Unavailable Isckarus, Mansour Consulting Unavailable Isckarus, Juveour Attending Unavailable Cebul, Bran Referring Unavailable Primay Care Physicia, No Primary Care Unavailable Isckarus, Mansour Consulting Unavailable Isckarus, Mansour Attending Unavailable Isckarus, Mansour Referring Unavailable Cebul III, En Primary Care Unavailable Isckarus, Mansour Attending Unavailable Isckarus, Mansour Referring Unavailable Cebul III, En Primary Care Unavailable Isckarus, Mansour Attending Unavailable Cebul, Bran Referring Unavailable Primay Care Physicia, No Primary Care Unavailable Isckarus, Mansour Consulting Unavailable RoblespaAmilcar fernandez Attending Unavailable Isckarus, Mansour Referring Unavailable Mar Medrano Attending Unavailable Cebul, Bran Referring Unavailable Primay Care Physicia, No Primary Care Unavailable Isckarus, Mansour Consulting Unavailable Isckarus, Mansour Attending Unavailable Cebul, Bran Referring Unavailable Primay Care Physicia, No Primary Care Unavailable Isckarus, Mansour Consulting Unavailable Mitchell, Mar Attending Unavailable Mitchell, Mar Referring Unavailable Cebul III, En Primary Care Unavailable Mitchell, Mar Attending Unavailable Cebul, Bran Referring Unavailable Primay Care Physicia, No Primary Care Unavailable Isckarus, Mansour Consulting Unavailable Mitchell, Mar Attending Unavailable Mitchell, Mar Referring Unavailable Primay Care Physicia, No Primary Care Unavailable PROBLEMS PROBLEMS DATE TYPE CONDITION / CODE ATTENDING STATUS SOURCE 10/16/2018 Unknown C50.912 - Malignant Mitchell, Active [facility] left female breast / Repository C50.912(ICD-10) 10/16/2018 Unknown 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, 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, Repository unspecified / C77.9(ICD-10) 10/16/2018 Unknown 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, 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 [facility] Hospital C79.51(ICD-10) Repository 10/16/2018 Unknown Z79.899 - Other long Mitchell, Active [facility] term (current) drug [facility] therapy / Hospital Z79.899(ICD-10) Repository 10/16/2018 Unknown 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[facility], 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 / Hospital C79.31(ICD-10) Repository 08/28/2018 Unknown R05 - Cough / [place], Active [facility] R05(ICD-10) [facility] Hospital Repository 08/28/2018 Unknown D72.829 - Elevated [facility], Active [facility] white blood cell [facility] count, unspecified / Hospital D72.829(ICD-10) Repository 08/28/2018 Unknown I10 - Essential Mitchell, Active [facility] (primary) [facility] hypertension / Hospital I10(ICD-10) Repository 08/28/2018 Unknown Z51.81 - Encounter Mitchell, Active [facility] for therapeutic drug [facility] level monitoring / Hospital Z51.81(ICD-10) Repository 08/15/2018 Unknown R11.2 - Nausea with Mitchell, Active [facility] vomiting, Mar [facility] unspecified / Hospital R11.2(ICD-10) Repository 08/15/2018 Unknown K21.9 - Mitchell, Active [facility] Gastro-esophageal [facility] reflux disease Hospital without esophagitis Repository / K21.9(ICD-10) 06/18/2018 Unknown E87.6 - Hypokalemia Isckarus, Active [facility] / E87.6(ICD-10) [facility] Hospital Repository 05/17/2018 Unknown C79.32 - Secondary Isckarus, 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 Hospital / C79.32(ICD-10) Repository 05/02/2018 Unknown E86.0 - Dehydration Mitchell, Active [facility] / E86.0(ICD-10) [facility] Hospital Repository 04/03/2018 Unknown D64.9 - Anemia, Isckarus, Active [facility] unspecified / [facility] D64.9(ICD-10) Hospital Repository 07/30/2018 Unknown R60.0 - Localized Mitchell, Active [facility] edema / [facility] R60.0(ICD-10) Hospital Repository 02/09/2018 Admitting Follow-up / 145() ALEJANDRO OSCAR Active [facility] diagnosis D [facility] Repository 11/24/2017 Active Cough / R05(ICD-10) NA Active [facility] [place] Repository 11/24/2017 Active Other chest pain / NA Active [place] R07.89(ICD-10) [facility] [place] Repository 11/16/2017 Unknown B37.0 - Candidal Isckarus, Active [facility] stomatitis / [facility] B37.0(ICD-10) Hospital Repository 11/03/2017 Admitting Secondary malignant ALEJANDRO OSCAR Active [facility] diagnosis neoplasm of brain [facility] C79.31(ICD-10) Center Repository 10/27/2017 Unknown K76.89 - Other Isckarus, Active [facility] specified diseases [facility] of liver / Hospital K76.89(ICD-10) Repository 10/19/2017 Unknown C50.919 - Malignant [place], Active [facility] neoplasm of [facility] unspecified site of Hospital unspecified female Repository breast / C50.919(ICD-10) 10/19/2017 Unknown R51 - Headache / [place], Active [facility] R51(ICD-10) [facility] Repository 10/18/2017 Unknown G89.18 - Other acute Bran Granados Active [facility] postprocedural pain [facility] / G89.18(ICD-10) Hospital Repository PROCEDURES PROCEDURES No Procedure Records FoundRESULTS RESULTS ONCOLOGY VISIT REPORT Observed: 10/16/2018 Status: F Source: SECOR 12:56 PM [facility] REPOSITORY [facility] [place] [address] [place] [address] OFFICE VISIT Date of Service: 10/16/18 0940 MR#: [id number] Acct: [id number] Name: LINDSAY ANTUNEZ Rep #: [id number] : 1965 From: Mar Medrano SUPPORTABILITY ENGINEERKatherinC Age/Sex: 53/F Location: OMD Status: Signed Subjective - Date of Service Date of Service:: 10/16/18 - Chief Complaint Breast cancer on treatment - History of Present Illness Patient is a 53-year-old female perimenopausal who never had screening mammographies and became aware of a painless lump in the left breast and a second lump in the left axilla in August 2017. She did not seek any medical care until October 09, 2017 when she developed chest pain and dyspnea. She was seen in [facility] emergency room, diagnosed and treated for pneumonia and referred to surgical consultation when the breast mass was noted on exam. Mammography and ultrasound examination confirmed the palpable abnormalities. On October 12, 2017 she underwent biopsies from the left breast mass and the left axilla that confirmed an invasive lobular carcinoma nuclear grade 3 ER negative, DC negative, HER-2 overexpressed 3+. On October [address] scan of the chest that showed emphysematous changes and diffuse bony lytic lesions throughout the thoracic and lumbar vertebrae and lower cervical segments, lytic lesions in humeral heads bilaterally, sternum, clavicles, left scapula and several ribs bilaterally. CT scan of the abdomen and pelvis showed an indeterminate lesion too small to characterize in the liver but no other visceral disease, widespread bony metastatic disease was again noted. A bone scan October 2017 initial staging showed diffuse skeletal metastatic disease. A bone biopsy October 27, 2017 confirmed metastatic cancer of breast origin. Brain MRI showed small multiple metastatic lesions one in the posterior right internal capsule, multiple bilateral small cerebellar metastases. CA 27-29 not elevated at diagnosis and therefore will not aid in follow-up. Her family history is notable for 2 maternal aunts with breast cancers but no first-degree relatives was breast cancer Treatment: Focal radiation therapy to the sites of disease in the STATE PILOT at [facility] 10/2017 Whole brain radiation therapy 3000 cGy of 6 MV photons in 10 fractions 02/28/18- 03/13/18. Systemic therapy was held during whole brain radiation. Eharqqmewe-Gbxfnevmkqb-Jqlpysta 11/2017-03/2018 (6 cycles) : Excess toxicity Abraxane Herceptin : May 07/2018-August 06, 2018: Stable disease but patient developed STATE PILOT progression. Lapatinib-Capecitabine August 21, 2018 (Held September 26 through October 03, 2018 due to excessive GI toxicity) Restarted Cycle 3 on 10/03/18 with dose attenuation- lapatinib 1000 mg QD, Capecitabine 1000 mg BID days 1- cycles - Interval History The patient is presenting to clinic accompanied by spouse for 2 week follow up. Reports improvement of side effects associated with chemotherapy subsequent to dose reductions. Specifically, she denies diarrhea, mouth sores, sores involving her hands/feet, abd pain, swelling/pain of her extremities and any overt bleeding/abnormal bruising. Headaches manageable, occurs 1-2 times/week. Nausea occasional, Zofran odt effective. Has not resulted in any episodes of emesis. Fatigue mild to moderate, however she attributes a portion of increase in fatigue to recent change in her analgesia. Has appointment later today with pain management, Dr. Anderson. - Past Medical/Social History Past Medical History Past Medical History: Pneumonia Cancer: Breast cancer Other Cancer History: Radiation to brain Social History Social History: No changes Smoking Status Former smoker Review of Systems Constitutional:: Reports: Weakness, Fatigue. Denies: Fever, Sweats, Weight loss, Appetite change, Chills Cardiovascular:: Denies: Chest pain, Palpitations, Dyspnea on exertion, Orthopnea, PND, Shortness of breath Respiratory: Reports: Cough - occasionally, chronic unchanged. Denies: Hemoptysis, Shortness of Breath, Wheezing Gastrointestinal:: Denies: Abdominal pain, Nausea, Vomiting, Diarrhea, Constipation, Hematochezia Genitourinary: Denies: Dysuria, Hematuria, 15, Flank pain Musculoskeletal:: Denies: Back pain, Myalgia, Arthralgia Skin: Denies: Rash, Skin Changes, Wounds Neurological:: Denies: Headache, Dizziness, Visual changes, Tinnitus, Hearing loss Psychiatric: Denies: Anxiety, Depression, Homicidal Ideations, Suicidal Ideations Vital Signs Height 5 ft 2 in Weight: 150 lb 12.8 oz - Physical Exam General: Alert, Oriented x3, No apparent distress HEENT: Atraumatic, PERRLA, EOMI, Normocephalic, - - Alopecia Oropharynx:: Negative for: Dry mucosa, Ulcerated lesions Neck:: Supple, Trachea midline. Negative for: JVD, bilateral Cardiac:: Regular rate, Regular rhythm, Normal S1, Normal S2. Negative for: Murmur Lungs: Clear to auscultation, Excusion symmetrical. Negative for: Rhonchi, Wheezes Abdomen:: Bowel sounds x 4, Soft, Non-tender, Non-distended. Negative for: Hepatosplenomegaly Extremities:: Negative for: Cyanosis, Edema Neurological: Neuro grossly intact Skin:: Negative for: Lesions, Rash, Petechiae, Ecchymosis Psychiatric:: Appropriate affect, Euthymic Lymphatics:: Negative for: Cervical lymphadenopathy Assessment and Plan 53-year-old female, perimenopausal at diagnosis with stage IV invasive lobular carcinoma of the left breast (T2, N3, M1) with metastases to left axillary, left supraclavicular and left cervical lymph nodes in addition to widespread metastatic disease to bone , an indeterminate lesion in the liver too small to characterize, and multiple bilateral brain metastases. Disease is ER negative, DC negative, HER-2 overexpressed. 1-Treated with focal radiation therapy to the brain at [facility] October 2017 then whole brain radiation due to STATE PILOT recurrence February 2018. By June 2018 she has evidence for extensive relapse in the brain. 2-Systemic combination of Pertuzumab, trastuzumab, and Taxotere received total 6 cycles between November - March 2018 with temporary interruption to allow brain radiation. Anemia and GI toxicity appeared to be the main side effects experienced. A bone scan in April 2018 did not report new bony lesions but continued demonstration of diffuse skeletal metastatic disease more confluent. Changed to second line treatment with weekly trastuzumab Abraxane with better tolerance. Imaging July 2018 showed stable disease. However was evidence of STATE PILOT progression by July 2018, patient was changed to a third line therapy with lapatinib and Xeloda . Brain imaging September 2018 showed a favorable response in the STATE PILOT . Comorbid conditions COPD, active smoker, poor dentition. Plan; #1 Concluded focal brain radiation for metastatic disease in the STATE PILOT at [facility] 10/2017 then whole brain radiation due to STATE PILOT recurrence in February 2018. However, by June 2018 with STATE PILOT recurrence prognosis is grave, is seeing Dr. Schroeder in regards to further management. A repeat whole brain radiation may offer her a very modest survival benefit but with increased STATE PILOT toxicities. MRI obtained 10/01/18 showed a favorable STATE PILOT response since start of Tykerb/Xeloda. #2 For systemic therapy she started third line with lapatinib (1250 mg daily continuously) and Xeloda (1500 mg twice daily 2 weeks on then 1 week rest) on August 21, 2018 due to probable better STATE PILOT penetration in view of progression of her disease in the brain in an attempt to hold off repeat whole brain radiation if possible. Treatment tolerated with Excess side effects mainly GI, thus treatment was held September 26 through October 03, 2018 With resolution of diarrhea. Began cycle 3 10/03/18 With dose reduction of Lapatinib to 1000 mg daily and Xeloda to 1000 mg twice daily 2 weeks on than 1 week rest. Overall, vast improvement in GI toxicity subsequent to dose attenuation. Nausea mild. Diarrhea, hand/foot sores resolved. CBC shows only mild neutropenia. CMP pending. #3 Pain management consulted to optimize pain control- appointment with Dr. Anderson 10/16/18. #4 Continue bisphosphonate therapy for metastatic bone disease every 3 months in addition to calcium and vitamin D supplement- Due for Zometa 01/01/19. #5 Anemia partly due to metastatic disease to bone marrow and suppression by systemic chemotherapy. No evidence for iron or B12 deficiency found- Hgb today 12.5. #6 Echo (/3M of Rx) last was July 25, 2018 showed preserved EF. #7 CA-27-29 not elevated at diagnosis and therefore not helpful and follow-up of disease course. Patient spouse were in agreement with aforementioned plan. RTO in 1 week for consideration of cycle 4, sooner if issues arise. Mar Medrano, ALONDRA, REGIONAL ENVIRONMENTAL MANAGER-C, AOCNP Medications: Prescriptions This Visit Medication Instructions Recorded Lidocaine/Prilocaine 30 gm TP DAILY PRN PRN #1 cream..g. 10/19/17 Primary Care Provider: No Primary Care Phys Referring Provider: Carolina Pak MD - Problem List (1) Primary cancer of left female breast Status: Chronic (2) Bone metastases Status: Chronic (3) Brain metastases Status: Chronic (4) CINV (chemotherapy-induced nausea and vomiting) Status: Acute (5) Chemotherapy-induced diarrhea Status: Resolved (6) Injury of foot, left Status: Resolved Qualifiers: Encounter type: initial encounter Qualified Code(s): S99.922A - Unspecified injury of left foot, initial encounter 10/16/18 1256 <Electronically signed by Mar Medrano NP-C> Date Mar Medrano NP-C Cosigner Signature: Date (if applicable) CC: CBC W/DIFF, AUTOMATED Collected: 10/16/2018 Status: F Source: KRYST[place] 9:01 AM [facility] REPOSITORY Order Comment: Reason for Laboratory Test . TYPE CODE TESTS RESULT OUT OF RANGE REFERENCE UNITS LAB L100.1000 4.4-11.0 K/mm3 Low WBC 4.3 LAB L100.1200 4.2-5.4 M/mm3 Low RBC 3.94 LAB L100.1300 12.0-15.0 g/dl Normal HGB 12.5 LAB L100.1400 37-47 % Normal HCT 39.5 LAB L100.1500 81-99 fL High MCV 100.3 LAB L100.1600 27.0-32.0 pg Normal MCH 31.7 LAB L100.1700 32-36 g/gl Low MCHC 31.6 LAB L100.1810 11.6-14.6 % High RDW CV 18.6 LAB L100.1820 35.1-43.9 fl High RDW SD 67.4 LAB L100.1900 150-450 K/mm3 Normal PLT 242 LAB L100.2000 6.2-12.0 fl Normal MPV 9.3 LAB L100.2100 47-70 % Normal NEUT% 53.4 LAB L100.2200 19-41 % Normal LY% 26.3 LAB L100.2300 0-10 % High MONO% 17.1 LAB L100.2400 0-5 % Normal EO% 1.6 LAB L100.2500 0-1 % Normal BASO% 0.9 LAB L100.2550 0.0-0.9 % Normal IM GRAN % 0.700 Result Comment: IG% - Immature Granulocytes (promyelocytes, myelocytes and metamyelocytes) > 1% indicates that a LEFT SHIFT is Present. LAB L100.2620 2.0-7.7 X10 3/uL Normal Absolute Neut 2.3 LAB L100.2720 0.83-4.51 X10 3/ul Normal Absolute Lymph 1.14 LAB L100.7300 ANISO Normal 1+ Performed By: #### L100.0100 #### [facility] [address] [place], [address] COMPREHENSIVE METABOLIC Collected: 10/16/2018 Status: F Source: KRYSTAL KEY 9:01 AM [facility] REPOSITORY Order Comment: Reason for Laboratory Test . TYPE CODE TESTS RESULT OUT OF RANGE REFERENCE UNITS LAB L501.0100 74-106 mg/dL Normal GLU 92 Result Comment: Please note revised GLUCOSE reference range effective 2017. LAB L501.1000 7-18 mg/dL Low BUN 6 LAB L501.1100 0.55-1.02 mg/dL Normal CREAT,SERUM 0.86 Result Comment: The validity of the calculated GFR AND GFRAA in patients over 70 years has not been determined. Clinical correlation is essential. LAB L501.1110 >60 mL/min Normal EST GFR 74 Result Comment: Non- GFR Calc LAB L501.1115 >60 mL/min Normal EST GFR - AA 89 Result Comment: GFR Calc LAB L501.1255 ml/min Normal Estimated CRCL 61.21 LAB L501.1300 10-20 RATIO Low BUN/CRE 7.0 LAB L501.1500 6.4-8. g/dL Low 2 T PROT 5.9 LAB L501.1800 3.2-5. g/dL Low 0 ALB 3.1 LAB L501.1950 2.2-4. g/dL Normal 2 GLOB 2.8 LAB L501.2000 0.9-2. RATIO Normal 4 A/G 1.1 LAB L501.2200 8.5-10 mg/dL Normal .1 CA 8.5 LAB L501.4100 15-37 U/L Normal AST 26 LAB L501.4305 45-117 U/L Low ALK P 44 LAB L501.4405 13-56 U/L Normal ALT 29 LAB L501.4600 0.20-1 mg/dL Normal .00 T BILI 0.40 LAB L501.5300 136-14 mmol/L Normal 5 NA 141 LAB L501.5600 3.5-5. mmol/L Normal 1 K 3.9 LAB L501.5900 98-107 mmol/L High CL 109 LAB L501.6100 21.0-3 mmol/L Normal 2.0 CO2 21.0 LAB L501.6200 5-15 Normal GAP 11 Performed By: #### L500.4050 #### [facility] [address] [place], [address] ONCOLOGY FOLLOW-UP Observed: 10/03/2018 Status: F Source: SECOR VISIT 10:49 AM [facility] REPOSITORY [facility] Medical Records Department [address] [place] [address] Oncology Follow-Up Visit 10/03/18 0952 MR#: [id number] Acct: [id number] Name: LINDSAY ANTUNEZ Rep #: [id number] : 1965 53 From: Kev Schroeder DO PCP: Care Physician, No Primary Status: REG RCR Y Location: ONC Date of Service: 10/03/18 Last Clinic Visit: 07/26/18 Diagnosis: Lindsay Antunez is a 52-year-old female diagnosed with widely 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 From 11/14/17 - 11/16/17 she received FSRT consisting of 2400 cGy delivered in 3 fractions to the 10 STATE PILOT lesions noted on the MRI. Repeat MRI brain 01/29/18 showed evidence for multifocal disease progression within the STATE PILOT. Plan was made to complete whole brain radiation therapy as further focal therapy was not felt to be an option given the numerous sites of disease in the brain. From 02/28/18 - 03/13/18 she received 3000 cGy in 10 fractions to the whole brain. History of Present Illness: 10/09/2017: Patient was seen in the emergency room due to left shoulder pain radiating to the right shoulder with right-sided chest pain as well as left nipple retraction with left breast discharge. 10/10/2017: Bilateral diagnostic mammogram was performed and demonstrated a 2.1 x 2.4 cm spiculated mass in the retroareolar region of the left breast which corresponds to the palpable abnormality, there are diffuse microcalcifications seen within it, there is also evidence of left axillary lymphadenopathy, no other significant abnormalities were identified. BI-RADS 5. 10/12/2017: CT chest was completed and showed evidence for diffuse lytic lesions seen throughout the thoracic and lumbar vertebrae, lucent lesions are also identified in the lower cervical segment as well as the humeral heads bilaterally. There is evidence of lytic lesions noted in the sternum as well as along the medial aspect of the clavicles as well as the left scapula. Also suspected or lytic lesions that are very small and several bilateral ribs. A left breast mass is identified as well as several enlarged left axillary lymph nodes. There is also a few scattered subcutaneous tissue nodules noted. 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 10/20/2017: Patient completed brain MRI with contrast which demonstrated evidence for 5 lesions consistent with metastatic disease for lesion is located within the cerebellum and the fifth lesion located in the posterior internal capsule on the right side. There is minimal associated edema. There is also heterogeneous low signal within the calvarium present which may represent an infiltrative bone marrow process though no focal calvarial lesions are noted, upper cervical spine shows multiple areas of osseous enhancement consistent with metastatic disease. 10/20/2017: MRI of the cervical thoracic and lumbar spine was completed which demonstrated evidence for diffuse osseous metastatic disease with a lytic appearance, no pathologic compression fractures or spinal cord compression is identified, no paraspinal masses are identified, there are no intra-canalicular lesions seen. 10/25/2017: CT abdomen and pelvis with contrast was performed which demonstrated evidence for diffuse osseous disease within the thoracic and lumbar spine as well as the sacrum and pelvis and both proximal femora. There is a single 7 mm hypodense lesion in the right liver, but no evidence for other sites of metastatic disease. 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 From 11/14/17 - 11/16/17: Patient received FSRT consisting of 2400 cGy delivered in 3 fractions to the 10 STATE PILOT lesions noted on the MRI. 11/29/17: Initiated Pertuzumab/Trastuzumab/Taxotere 01/29/2018: MRI brain was completed which demonstrated evidence for increasing number of metastatic lesions when compared to the prior study. 01/29/2018: Chest x-ray of the lumbar and thoracic spine was completed. There is diffuse osseous metastatic disease and chronic appearing compression fractures of T11, T12, and L1. 02/09/2018: Patient was evaluated by [facility]inoic in follow- up after completing brain FSRT. Upon review, the previously treated lesions were stable to improved but there were multiple new punctate lesions noted especially in the cerebellum. Recommendation was to complete whole brain radiation therapy. From 02/28/18 03/13/18: Received 3000 cGy in 10 fractions to the whole brain with concurrent memantine. 04/23/2018: MRI brain was performed which demonstrated mild chronic periventricular white matter and pontine ischemic changes without evidence for acute infarct. Persistent small cerebellar metastasis however these demonstrate interval improvement in the number of metastatic lesions since the previous exam. 04/26/2018: Bone scan demonstrated multifocal increased radiopharmaceutical concentration remaining evident throughout the appendicular and axial skeletal structures. There is an increase in tracer concentration currently defined in the bilateral elbow and wrist articulations. 04/29/2018: CT abdomen and pelvis with contrast was performed which demonstrated diffuse wall thickening and inflammation of the terminal ileum suggesting terminal ileitis, enlargement of left upper abdominal wall soft tissue nodule, diffuse lytic and sclerotic lesions throughout the bones consistent with metastatic disease, likely due to timing of the IV bolus the previously noted nodules in the liver are difficult to visualize on this exam. 04/29/18-05/01/18: Admitted with intractable nausea and vomiting with diarrhea and found to have findings consistent with sepsis. Patient was treated with IV fluids, antibiotics, pain medications, and antiemetics and was discharged in stable condition. 05/07/18: Due to increase toxicity and uncertainty to whether she has progressive disease treatment was switched to second line therapy, Abraxane/Herceptin. 07/19/2018: MRI brain was performed which demonstrated marked progression of brain metastatic disease with innumerable lesions in the cerebral Freddie hemispheres and additional brain metastatic lesions in both cerebral hemispheres, the left medial cerebral peduncle and the right upper pontine tegmentum junction. 07/31/2018: Bone scan showed stability of extensive osteoblastic disease involving the appendicular and axial skeleton. 08/02/2018: CT chest and abdomen showed stability of extensive osseous disease without other evidence of disease and no evidence of disease progression. 08/21/2018: Initiated Capecitabine/Lapatinib to attain better STATE PILOT penetration given progression of STATE PILOT disease and short interval from completing WBRT. 10/01/18: MRI of the brain showed mild decrease of size and number of the previously noted cerebral and cerebellar small enhancing lesions, there is slightly decreased lesions noted within the jose and midbrain as well. Radiation Treatment History: 1) From 11/14/17 - 11/16/17: Patient received FSRT consisting of 2400 cGy delivered in 3 fractions to the 10 STATE PILOT lesions noted on the MRI. 2) From 02/28/18 - 03/13/18: Received 3000 cGy in 10 fractions to the whole brain with concurrent memantine. Denies history of collagen vascular disease and denies having a pacemaker. Interval History: Patient returns for follow-up approximately 6.5 months after completing whole brain radiation therapy and to review recent MRI imaging. She reports doing fairly well overall. She has tolerated keep Capecitabine/lapatinib fairly well but has experienced increased fatigue and diarrhea. Her diarrhea has been managed with Imodium and currently she does not complain of any diarrhea. She has continued baseline mild occasional headaches that are unchanged in nature or severity. She denies having nausea/vomiting, focal weakness/numbness (other than bilateral hand and foot numbness from chemotherapy), decrease in cognitive function or memory, ataxia, incoordination, seizures, or double or blurry vision. She reports that walking is stable and she does not require a cane or walker for assistance. She continues to have alopecia but does not have scalp irritation. She has been taking memantine at the tolerated dose of 5 mg twice daily. She has slowly tapered down on Decadron since the diagnosis of worsening brain metastases at the previous visit. She denies changes in hearing and denies having any dry mouth. She denies cough, shortness of breath, hemoptysis, or worsening bone pain. She stays moderately active and is able to complete all activities of daily living without much difficulty. She reports having a pretty good appetite and has had no weight loss. She denies having any other problems or concerns at this time. I have reviewed the medical, surgical, and other pertinent history in details and have updated medication and allergy information in the electronic medical record. Review of Systems: A 12-point review of systems was completed and was negative except for what is noted in the HPI/Interval History and by the nurse. Height/Weight/BMI: Height: 5 ft 2 in Weight: 148.8 lbs Vital Signs Temperature 98.0 F 10/03/18 09:46 Temperature Source Oral 10/03/18 09:46 Pulse Rate 69 10/03/18 09:46 Respiratory Rate 17 10/03/18 09:46 Respiratory Pattern Normal 01/18/18 15:22 Physical Exam: ECO KARNOFSKY SCORE: 70% CONSTITUTIONAL: Well-developed, well-nourished, and in no apparent distress. HEENT: Mucous membranes mildly dry. No evidence of thrush or lesions within the visualized oropharynx or oral cavity. Complete alopecia, no scalp erythema. No trismus. Pupils are equal, round, and reactive to light and accommodation. Extraocular movements are intact. Sclerae are anicteric. NECK: Supple,with no thyromegaly, and non-tender. Trachea midline. No cervical or supraclavicular adenopathy noted. CARDIAC: Regular rate and rhythm. Normal S1, S2. No murmurs, rubs, or gallops. PULMONARY/CHEST: Lungs are clear to auscultation and percussion bilaterally. No wheezes, rhonchi, or crackles noted. No increased work of breathing. ABDOMINAL: Abdomen soft, non-tender, non-distended. No hepatomegaly. Normoactive bowel sounds in all four quadrants. No guarding, rebound. BACK: Straight and aligned. No CVA tenderness. Tenderness to palpation is noted in the axial skeleton involving the lumbar/sacral region as well as the lower thoracic region, otherwise nontender to palpation. EXTREMITIES: Full range of motion in all four extremities, with normal strength equally and symmetrically. No evidence of edema. No clubbing. NEUROLOGICAL EXAM: Alert and oriented x 3. Cranial nerves II through XII are grossly intact. No focal neurological deficit. Speech is fluent. There is no upper or lower extremity sensory deficit or motor deficit. Muscle strength is 5/5 in all muscle groups. Gait and posture are steady. No dysmetria. Imaging: As per HPI Reviewed the MRI brain completed 10/01/2018. 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 From 11/14/17 - 11/16/17 she received FSRT consisting of 2400 cGy delivered in 3 fractions to the 10 STATE PILOT lesions noted on the MRI. Repeat MRI brain 01/29/18 showed evidence for multifocal disease progression within the STATE PILOT. Plan was made to complete whole brain radiation therapy as further focal therapy was not felt to be an option given the numerous sites of disease in the brain. From 02/28/18 - 03/13/18 she received 3000 cGy in 10 fractions to the whole brain. MRI brain 07/19/2018 demonstrated extensive disease progression within the STATE PILOT and to delay any further brain radiation systemic therapy was switched to Capecitabine/Lapatinib (08/21/18). I reviewed the imaging findings with the patient and her which demonstrates improvement in the number and size of brain lesions. She does not appear to have any persistent radiation related toxicities at that than continued alopecia likely also related to chemotherapy. She is tolerating Capecitabine/Lapatinib fairly well with diarrhea and fatigue. Performance status remains high. Given her acceptable tolerance of the new systemic therapy and what appears to be improved STATE PILOT penetration resulting in noticeable improvement of the extensive brain metastases I recommended that we continue the current regimen and complete brain MRI in 2 months to continue close observation. With this strategy I hope to avoid repeat whole brain radiation or at least delayed as long as possible. Extracranial imaging will be done per medical oncology recommendations, imaging from July noted stable osseous disease only. She has taken memantine for 6 months and was given instructions for tapering off of the medication, she remains at her baseline for cognitive function. She was also given instructions to fully complete taper for Decadron. I will plan to have the patient return for short interval follow-up in about 2 months following the completion of the interval MRI brain. The patient was instructed to call with any further questions or concerns that arise in the interim and she was made aware to report any new concerning symptoms. Kev Schroeder DO, MS Demurrage Agent, Department of Radiation Oncology [facility] 10/03/18 104 <Electronically signed by Kev Schroeder DO> Date Kev Schroeder DO CC: Carolina Pak MD; Mar Medrano NP Signed ONCOLOGY VISIT REPORT Observed: 10/03/2018 Status: F Source: SECOR 10:09 [facility] REPOSITORY [facility] [address] [place] [id number] OFFICE VISIT Date of Service: 10/03/18 0852 MR#: [id number] Acct: [id number] Name: LINDSAY ANTUNEZ Rep #: [id number] : 1965 From: Carolina Pak MD Age/Sex: 53/F Location: ONC Status: Signed - Problem List (1) Primary cancer of left female breast Status: Chronic (2) Regional lymph node metastasis present Status: Chronic (3) Bone metastases Status: Chronic (4) Brain metastases Status: Chronic (5) Anemia Status: Chronic (6) Fatigue Status: Chronic (7) Anorexia Status: Chronic - Date of Service Date of Service:: 10/03/18 - Chief Complaint Breast cancer on treatment - History of Present Illness Patient is a 52-year-old female perimenopausal who never had screening mammographies and became aware of a painless lump in the left breast and a second lump in the left axilla in August 2017. She did not seek any medical care until October 09, 2017 when she developed chest pain and dyspnea. She was seen in [place] emergency room, diagnosed and treated for pneumonia and referred to surgical consultation when the breast mass was noted on exam. Mammography and ultrasound examination confirmed the palpable abnormalities. On October 12, 2017 she underwent biopsies from the left breast mass and the left axilla that confirmed an invasive lobular carcinoma nuclear grade 3 ER negative, DC negative, HER-2 overexpressed 3+. On October [address] scan of the chest that showed emphysematous changes and diffuse bony lytic lesions throughout the thoracic and lumbar vertebrae and lower cervical segments, lytic lesions in humeral heads bilaterally, sternum, clavicles, left scapula and several ribs bilaterally. CT scan of the abdomen and pelvis showed an indeterminate lesion too small to characterize in the liver but no other visceral disease, widespread bony metastatic disease was again noted. A bone scan October 2017 initial staging showed diffuse skeletal metastatic disease. A bone biopsy October 27, 2017 confirmed metastatic cancer of breast origin. Brain MRI showed small multiple metastatic lesions one in the posterior right internal capsule, multiple bilateral small cerebellar metastases. CA 27-29 not elevated at diagnosis and therefore will not aid in follow-up. Her family history is notable for 2 maternal aunts with breast cancers but no first-degree relatives was breast cancer Treatment: Focal radiation therapy to the sites of disease in the STATE PILOT at [facility] 10/2017 Whole brain radiation therapy 3000 cGy of 6 MV photons in 10 fractions 02/28/18- 03/13/18. Systemic therapy was held during whole brain radiation. Tiqjrcjede-Bykjinbbtta-Veloftez 11/2017-03/2018 (6 cycles) : Excess toxicity Abraxane Herceptin : May 07/2018-August 06, 2018: Stable disease but patient developed STATE PILOT progression. Lapatinib-Capecitabine August 21, 2018 (Held September 26 through October 03, 2018 due to excessive GI toxicity) - Past Medical/Social History Past Medical History Past Medical History: Pneumonia Cancer: Breast cancer Other Cancer History: Radiation to brain Social History Social History: No changes Smoking Status Former smoker Review of Systems Constitutional:: Reports: Weakness, Fatigue. Denies: Fever, Sweats, Weight loss, Appetite change, Chills Cardiovascular:: Denies: Chest pain, Palpitations, Dyspnea on exertion, Orthopnea, PND, Shortness of breath Respiratory: Denies: Cough, Hemoptysis, Shortness of Breath, Wheezing Gastrointestinal:: Reports: Diarrhea - Resolve past 24 hours and no longer using Imodium. Denies: Abdominal pain, Nausea, Vomiting, Constipation, Hematochezia Genitourinary: Denies: Dysuria, Hematuria, 15, Flank pain Musculoskeletal:: Reports: Back pain - Controlled. Denies: Myalgia, Arthralgia Skin: Denies: Rash, Skin Changes, Wounds Neurological:: Denies: Headache, Dizziness, Visual changes, Tinnitus, Hearing loss Psychiatric: Denies: Anxiety, Depression, Homicidal Ideations, Suicidal Ideations Vital Signs Height 5 ft 2 in Weight: 67.132 kg - Physical Exam General: Alert, Oriented x3, No apparent distress, - - ECOG 1-2 Cushingoid HEENT: Atraumatic, PERRLA, EOMI, Normocephalic Oropharynx:: Dry mucosa Neck:: Supple, Trachea midline, - - Port okay. Negative for: JVD, bilateral Cardiac:: Regular rate, Regular rhythm, Normal S1, Normal S2. Negative for: Murmur Lungs: Clear to auscultation, Excusion symmetrical. Negative for: Rhonchi, Wheezes Abdomen:: Soft, Non-tender, Non-distended. Negative for: Hepatosplenomegaly Extremities:: Negative for: Cyanosis, Edema Neurological: Neuro grossly intact Skin:: Negative for: Lesions, Rash, Petechiae, Ecchymosis Psychiatric:: Appropriate affect, Euthymic Lymphatics:: Negative for: Cervical lymphadenopathy, Supraclavicular lymphadenopathy Laboratory Data: Laboratory Tests WBC 6.7 (4.4-11.0) K/mm3 RBC 3.93 L (4.2-5.4) M/mm3 Hgb 12.3 (12.0-15.0) g/dl Diagnostic Data: Brain MRI September 2018, show a favorable STATE PILOT response since start of Tykrib 5-FU Assessment and Plan Assessment: 53-year-old female, perimenopausal at diagnosis with stage IV invasive lobular carcinoma of the left breast (T2, N3, M1) with metastases to left axillary, left supraclavicular and left cervical lymph nodes in addition to widespread metastatic disease to bone , an indeterminate lesion in the liver too small to characterize, and multiple bilateral brain metastases . Disease is ER negative, DC negative, HER-2 overexpressed. 1-Treated with focal radiation therapy to the brain at [facility] October 2017 then whole brain radiation due to STATE PILOT recurrence February 2018. By June 2018 she has evidence for extensive relapse in the brain. 2-Systemic combination of Pertuzumab, trastuzumab, and Taxotere received total 6 cycles between November - March 2018 with temporary interruption to allow brain radiation. Anemia and GI toxicity appeared to be the main side effects experienced. A bone scan in April 2018 did not report new bony lesions but continued demonstration of diffuse skeletal metastatic disease more confluent. Changed to second line treatment with weekly trastuzumab Abraxane with better tolerance. Imaging July 2018 showed stable disease. However was evidence of STATE PILOT progression by July 2018, patient was changed to a third line therapy with lapatinib and Xeloda . Brain imaging September 2018 showed a favorable response in the STATE PILOT . Comorbid conditions COPD, active smoker, poor dentition. Plan; #1 Concluded focal brain radiation for metastatic disease in the STATE PILOT at [facility] 10/2017 then whole brain radiation due to STATE PILOT recurrence in February 2018. However, by June 2018 with STATE PILOT recurrence prognosis is grave, is seeing Dr. Schroeder in regards to further management. A repeat whole brain radiation may offer her a very modest survival benefit but with increased STATE PILOT toxicities. #2 For systemic therapy she started third line with lapatinib (1250 mg daily continuously) and Xeloda (1500 mg twice daily 2 weeks on then 1 week rest) on August 21, 2018 due to probable better STATE PILOT penetration in view of progression of her disease in the brain in an attempt to hold off repeat whole brain radiation if possible. Treatment tolerated with Excess side effects mainly GI. Treatment was held September 26 through October 03, 2018 With resolution of diarrhea . We will start cycle 3 today, With dose reduction of Lapatinib to 1000 mg daily and Xeloda to 1000 mg twice daily 2 weeks on than 1 week crest. follow-up for toxicity on day 14 then at the beginning of cycle 4. #3 Pain management consulted to optimize pain control. #4 Continue bisphosphonate therapy for metastatic bone disease every 3 months in addition to calcium and vitamin D supplement #5 Anemia partly due to metastatic disease to bone marrow and suppression by systemic chemotherapy. No evidence for iron or B12 deficiency found. #6 Echo (/3M of Rx) last was July 25, 2018 showed preserved EF. #7 CA-27-29 not elevated at diagnosis and therefore not helpful and follow-up of disease course. #8 Wean off systemic steroids over the upcoming 2 weeks Patient was seen with her , impression and plan discussed. Medications: Prescriptions This Visit Medication Instructions Recorded Lidocaine/Prilocaine 30 gm TP DAILY PRN PRN #1 cream..g. 10/19/17 [Lidocaine-Prilocaine Cream] Medications Added to Medication List This Visit Zoledronic Acid [Zometa] 4 mg Med 10/03/18 08:00 Ordered 0.9% Normal Saline 100 ml IV X1 Primary Care Provider: No Primary Care Phys Referring Provider: Carolina Pak MD 10/03/18 1009 <Electronically signed by Carolina Pak MD> Date Carolina Pak MD Cosigner Signature: Date (if applicable) CC: CBC W/DIFF, AUTOMATED Collected: 10/03/2018 Status: F Source: [place] 8:17 AM [facility] REPOSITORY Order Comment: Reason for Laboratory Test . TYPE CODE TESTS RESULT OUT OF RANGE REFERENCE UNITS LAB L100.1000 4.4-11.0 K/mm3 Normal WBC 6.7 LAB L100.1200 4.2-5.4 M/mm3 Low RBC 3.93 LAB L100.1300 12.0-15.0 g/dl Normal HGB 12.3 LAB L100.1400 37-47 % Normal HCT 39.2 LAB L100.1500 81-99 fL High MCV 99.7 LAB L100.1600 27.0-32.0 pg Normal MCH 31.3 LAB L100.1700 32-36 g/gl Low MCHC 31.4 LAB L100.1810 11.6-14.6 % High RDW CV 18.6 LAB L100.1820 35.1-43.9 fl High RDW SD 67.6 LAB L100.1900 150-450 K/mm3 Normal PLT 214 LAB L100.2000 6.2-12.0 fl Normal MPV 8.9 LAB L100.2100 47-70 % Normal NEUT% 67.8 LAB L100.2200 19-41 % Normal LY% 20.7 LAB L100.2300 0-10 % High MONO% 10.5 LAB L100.2400 0-5 % Normal EO% 0.1 LAB L100.2500 0-1 % Normal BASO% 0.3 LAB L100.2550 0.0-0.9 % Normal IM GRAN % 0.600 Result Comment: IG% - Immature Granulocytes (promyelocytes, myelocytes and metamyelocytes) > 1% indicates that a LEFT SHIFT is Present. LAB L100.2620 2.0-7.7 X10 3/uL Normal Absolute Neut 4.6 LAB L100.2720 0.83-4.51 X10 3/ul Normal Absolute Lymph 1.39 LAB L100.7300 ANISO Normal 1+ Performed By: #### L100.0100 #### [facility] [address] [place], [address] COMPREHENSIVE METABOLIC Collected: 10/03/2018 Status: F Source: [facility] 8:17 AM [facility] REPOSITORY Order Comment: Reason for Laboratory Test . TYPE CODE TESTS RESULT OUT OF RANGE REFERENCE UNITS LAB L501.0100 74-106 mg/dL High GLU 108 Result Comment: Fasting Glucose result from 100 to 125 mg/dL suggests IMPAIRED HOMEOSTASIS per A.D.A. criteria. Please note revised GLUCOSE reference range effective 2017. LAB L501.1000 7-18 mg/dL Low BUN 5 LAB L501.1100 0.55-1.02 mg/dL Normal CREAT,SERUM 0.77 Result Comment: The validity of the calculated GFR AND GFRAA in patients over 70 years has not been determined. Clinical correlation is essential. LAB L501.1110 >60 mL/min Normal EST GFR 84 Result Comment: Non- GFR Calc LAB L501.1115 >60 mL/min Normal EST GFR - AA 101 Result Comment: GFR Calc LAB L501.1255 ml/min Normal Estimated CRCL 68.36 LAB L501.1300 10-20 RATIO Low BUN/CRE 6.5 LAB L501.1500 6.4-8. g/dL Normal 2 T PROT 6.4 LAB L501.1800 3.2-5. g/dL Normal 0 ALB 3.3 LAB L501.1950 2.2-4. g/dL Normal 2 GLOB 3.1 LAB L501.2000 0.9-2. RATIO Normal 4 A/G 1.1 LAB L501.2200 8.5-10 mg/dL Normal .1 CA 8.7 LAB L501.4100 15-37 U/L Normal AST 17 LAB L501.4305 45-117 U/L Normal ALK P 54 LAB L501.4405 13-56 U/L Normal ALT 29 LAB L501.4600 0.20-1 mg/dL Normal .00 T BILI 0.20 LAB L501.5300 136-14 mmol/L Normal 5 NA 141 LAB L501.5600 3.5-5. mmol/L Normal 1 K 3.8 LAB L501.5900 98-107 mmol/L Normal CL 107 LAB L501.6100 21.0-3 mmol/L Normal 2.0 CO2 24.0 LAB L501.6200 5-15 Normal GAP 10 Performed By: #### L500.4050 #### [facility] [address] [place], [address] BRAIN W/WO CONTRAST Observed: 10/01/2018 Status: F Source: SECOR 10:03 AM [facility] REPOSITORY [facility] [address] [place] [address] Brain W/WO Contrast MR#: [id number] Acct: [id number] Name: LINDSAY ANTUNEZ Rep #: [id number] : 1965 F 53 From: Catarina García PCP: Care Physician, No Primary Status: REG CLI Study: Brain W/WO Contrast Date of Exam: 10/01/18 Exam# [id number] Ordering Dr: Kev Schroeder DO STUDY: MRI BRAIN WITH AND WITHOUT CONTRAST REASON FOR EXAM: Female, 53 years old. EVAL METS, Breast ca w/ brain mets. TECHNIQUE: Standardized multiplanar fat and water weighted pulse sequences were obtained. 7 ml of Gadavist contrast material was administered intravenously for the contrast portion of the examination. COMPARISON: July 19, 2018. Temporal bones FINDINGS: There has been mild decrease of size and number of the previously noted cerebral and cerebellar small enhancing lesions. Slightly decreased lesions are noted within the jose and midbrain as well. Normal size of the ventricles and extra-axial spaces for the patient's age. Again noted confluent periventricular white matter hyperintensities. Normal bilateral basal ganglia. Normal thalami. There is no extra-axial fluid accumulation. Normal flow voids within the major intracranial circulation suggesting patency by spin echo criteria. Normal sella turcica, pituitary gland, infundibular stalk, optic chiasm and hypothalamus. Normal tectal plate and pineal gland. There are chronic white matter ischemic changes of the jose. The midbrain and medulla are otherwise normal. There is a right mastoid fluid. MRI/Brain W/WO Contrast IMPRESSION: Decreased innumerable metastatic lesions. Electronically Signed: Catarina García MD at 10:37 EST Tel , Service support , CC: No Primary Care Physician; Kev Schroeder DO Wheel Truer: Signed ONCOLOGY VISIT REPORT Observed: 09/26/2018 Status: F Source: SECOR 1:20 PM [facility] REPOSITORY [facility] Medical On[facility] [place] [address] OFFICE VISIT Date of Service: 09/26/18 0935 MR#: [id number] Acct: [id number] Name: LINDSAY ANTUNEZ Dereck Rep #: [id number] : 1965 From: Mar SANTA Age/Sex: 53/F Location: ONC Status: Signed Subjective - Date of Service Date of Service:: 09/26/18 - Chief Complaint Breast cancer on treatment - History of Present Illness Patient is a 53-year-old female perimenopausal who never had screening mammographies and became aware of a painless lump in the left breast and a second lump in the left axilla in August 2017. She did not seek any medical care until October 09, 2017 when she developed chest pain and dyspnea. She was seen in [place] emergency room, diagnosed and treated for pneumonia and referred to surgical consultation when the breast mass was noted on exam. Mammography and ultrasound examination confirmed the palpable abnormalities. On October 12, 2017 she underwent biopsies from the left breast mass and the left axilla that confirmed an invasive lobular carcinoma nuclear grade 3 ER negative, DC negative, HER-2 overexpressed 3+. On October [address] scan of the chest that showed emphysematous changes and diffuse bony lytic lesions throughout the thoracic and lumbar vertebrae and lower cervical segments, lytic lesions in humeral heads bilaterally, sternum, clavicles, left scapula and several ribs bilaterally. CT scan of the abdomen and pelvis showed an indeterminate lesion too small to characterize in the liver but no other visceral disease, widespread bony metastatic disease was again noted. A bone scan October 2017 initial staging showed diffuse skeletal metastatic disease. A bone biopsy October 27, 2017 confirmed metastatic cancer of breast origin. Brain MRI showed small multiple metastatic lesions one in the posterior right internal capsule, multiple bilateral small cerebellar metastases. CA 27-29 not elevated at diagnosis and therefore will not aid in follow-up. Her family history is notable for 2 maternal aunts with breast cancers but no first-degree relatives was breast cancer Treatment: Focal radiation therapy to the sites of disease in the STATE PILOT at [facility] 10/2017 Whole brain radiation therapy 3000 cGy of 6 MV photons in 10 fractions 02/28/18- 03/13/18. Systemic therapy was held during whole brain radiation. Vskiekbzun-Oesqsboegtz-Zzliivbw 11/2017-03/2018 (6 cycles) : Excess toxicity Abraxane Herceptin : May 07/2018-August 06, 2018: Stable disease but patient developed STATE PILOT progression. Lapatinib-Capecitabine August 21, 2018 - Interval History The patient is presenting to clinic accompanied by spouse for follow-up. She began cycle 2 of Tykerb and Xeloda on 09/11/2018, today is day 16 of cycle. Concerns today include nausea, vomiting, diarrhea, dry cracked skin on hands and left foot injury. States N/V began approx 5 days ago. Estimates 2-3 episodes of emesis each day. Able to keep down some fluids and soft foods. Last emesis today at 0330, 1 dose of Zofran immediately prior to. Reports 8-10 diarrhea stools per day, despite taking Imodium. No bloody, mucous-like stools. States 6 days ago, dropped a marble table top on her left foot. Rates pain 5/10, achy. Able to ambulate but concerned about the degree ecchymosis. Fingertips cracking bilat, no drainage, using thick emollient cream and Aquaphor to corners of mouth. Headaches 3 times/week- unchanged in terms of severity and frequency. No change in chronic cough and numbness/tingling involving toes. - Past Medical/Social History Past Medical History Past Medical History: Pneumonia Cancer: Breast cancer Other Cancer History: Radiation to brain Social History Social History: No changes Smoking Status Former smoker Review of Systems Constitutional:: Reports: Weakness, Fatigue. Denies: Fever, Sweats, Weight loss, Appetite change, Chills Cardiovascular:: Denies: Chest pain, Palpitations, Dyspnea on exertion, Orthopnea, PND, Shortness of breath Respiratory: Denies: Cough, Hemoptysis, Shortness of Breath, Wheezing Gastrointestinal:: Reports: Nausea, Vomiting, Diarrhea. Denies: Abdominal pain, Constipation, Melena, Hematochezia Genitourinary: Denies: Dysuria, Hematuria, 15, Flank pain Musculoskeletal:: Denies: Back pain, Myalgia, Arthralgia Skin: Reports: Dryness. Denies: Skin Changes, Wounds Neurological:: Reports: Numbness, Tingling. Denies: Headache, Dizziness, Visual changes, Tinnitus, Hearing loss Psychiatric: Denies: Anxiety, Depression, Homicidal Ideations, Suicidal Ideations Vital Signs Height 5 ft 2 in Weight: 153 lb 3.2 oz - Physical Exam General: Alert, Oriented x3, No apparent distress HEENT: Atraumatic, Normocephalic Oropharynx:: Negative for: Dry mucosa, Ulcerated lesions Neck:: Supple, Trachea midline. Negative for: JVD, bilateral Cardiac:: Regular rate, Regular rhythm, Normal S1, Normal S2. Negative for: Murmur Lungs: Clear to auscultation, Excusion symmetrical. Negative for: Rhonchi, Wheezes Abdomen:: Bowel sounds x 4, Soft, Non-tender, Non-distended. Negative for: Hepatosplenomegaly Extremities:: - - left foot dorsum and 2 center toes ecchymotic, trace edema. +2 pulses and able to move all toes. Negative for: Cyanosis, Edema Neurological: Neuro grossly intact Skin:: - - Port upper chest accessed with gripper covered with DSD Fingertips bilat each with 1-2 deep fissures, areas dry and scabbed over no drainage. Surrounding integument with erythema. Negative for: Lesions, Rash, Petechiae, Ecchymosis Psychiatric:: Depressed affect Lymphatics:: Negative for: Cervical lymphadenopathy, Supraclavicular lymphadenopathy, Axillary lymphadenopathy Assessment and Plan 53-year-old female, perimenopausal at diagnosis with stage IV invasive lobular carcinoma of the left breast (T2, N3, M1) with metastases to left axillary, left supraclavicular and left cervical lymph nodes in addition to widespread metastatic disease to bone , an indeterminate lesion in the liver too small to characterize, and multiple bilateral brain metastases . Disease is ER negative, DC negative, HER-2 overexpressed. 1-Treated with focal radiation therapy to the brain at [facility] October 2017 then whole brain radiation due to STATE PILOT recurrence February 2018. By June 2018 she has evidence for extensive relapse in the brain. 2-Systemic combination of Pertuzumab, trastuzumab, and Taxotere received total 6 cycles between November - March 2018 with temporary interruption to allow brain radiation. Anemia and GI toxicity appeared to be the main side effects experienced. A bone scan in April 2018 did not report new bony lesions but continued demonstration of diffuse skeletal metastatic disease more confluent. Changed to second line treatment with weekly trastuzumab Abraxane with better tolerance. Imaging July 2018 showed stable disease. Comorbid conditions COPD, active smoker, poor dentition. Plan; #1 Concluded focal brain radiation for metastatic disease in the STATE PILOT at [facility] 10/2017 then whole brain radiation due to STATE PILOT recurrence in February 2018. However, by June 2018 with STATE PILOT recurrence prognosis is grave, is seeing Dr. Schroeder in regards to further management. A repeat whole brain radiation may offer her a very modest survival benefit but with increased STATE PILOT toxicities. Due for imaging next week. #2 For systemic therapy she started third line with lapatinib (1250 mg daily continuously) and Xeloda (1500 mg twice daily 2 weeks on then 1 week rest) on August 21, 2018 due to probable better STATE PILOT penetration in view of progression of her disease in the brain in an attempt to hold off repeat whole brain radiation if possible. Treatment tolerated with mainly GI toxicity. CBC pending. Today is day 16 of cycle 2. Reporting grade 3 diarrhea, with associated electrolyte aberrancy. Advised to hold lapatinib. Will likely require dose attenuations when commences with cycle 3. #3 Pain management consulted to optimize pain control. #4 Continue bisphosphonate therapy for metastatic bone disease every 3 months in addition to calcium and vitamin D supplement. Due for next dose 10/09/18. #5 Anemia partly due to metastatic disease to bone marrow and suppression by systemic chemotherapy. No evidence for iron or B12 deficiency found. #6 Echo (/3M of Rx) last was July 25, 2018 showed preserved EF. Repeated on 09/04/18 to address BP elevation, showed EF 65% and normal LV function. #7 CA-27-29 not elevated at diagnosis and therefore not helpful and follow-up of disease course. #8 CINV and diarrhea- Reports CINV improving modestly. Grade 3 diarrhea. To hold lapatinib. Continue Imodium and prn ondansetron. Will support with IVF and potassium repletion, via IVPB today and PO starting tomorrow. #9 Left foot injury- Orders for X ray provided. In the interim, rest, ice and elevate. Case discussed with Dr. Pak who was in agreement with the aforementioned plan. Mar Medrano, MSN, REGIONAL ENVIRONMENTAL MANAGER-C, AOCNP Medications: Prescriptions This Visit Medication Instructions Recorded Lidocaine/Prilocaine 30 gm TP DAILY PRN PRN #1 cream..g. 10/19/17 [Lidocaine-Prilocaine Cream] Primary Care Provider: No Primary Care Phys Referring Provider: Carolina Pak MD - Problem List (1) Primary cancer of left female breast Status: Chronic (2) Bone metastases Status: Chronic (3) Brain metastases Status: Chronic (4) CINV (chemotherapy-induced nausea and vomiting) Status: Acute (5) Chemotherapy-induced diarrhea Status: Acute (6) Injury of foot, left Status: Acute Qualifiers: Encounter type: initial encounter Qualified Code(s): S99.922A - Unspecified injury of left foot, initial encounter 09/26/18 1320 <Electronically signed by Mar HERNANDESC> Date Mar HERNANDESC Cosigner Signature: Date (if applicable) CC: FOOT MIN 3 VIEWS Observed: 09/26/2018 Status: F Source: [place] 11:03 AM [facility] RE[facility] [address] [place] [address] Foot min 3 Views MR#: [id number] Acct: [id number] Name: LINDSAY ANTUNEZ Rep #: [id number] : 1965 F 53 From: Kristopher Ba MD PCP: Care Physician, No Primary Status: REG CLI Study: Foot min 3 Views Date of Exam: 09/26/18 Exam# [id number] Ordering Dr: Mar Medrano STUDY: X-RAY - LEFT FOOT CLINICAL: Female, 53 years old. Injury a few days ago, dropped a marble table top of her foot, bruising at the base of the toes TECHNIQUE: view(s) of the foot. COMPARISON: None. FINDINGS: There is a plantar calcaneal spur. Normal visualized subtalar, talonavicular, calcaneocuboid, tarsal and tarsometatarsal articulations. Normal metatarsi. Normal metatarsophalangeal joint of the great toe. Normal tibial and fibular sesamoid bones. Normal interphalangeal joint of the great toe. Normal phalanges of the great toe. Normal second through fifth metatarsophalangeal joints. Normal interphalangeal joints and phalanges of the lesser toes. Mild soft tissue swelling of the dorsal forefoot. RAD/Foot min 3 Views IMPRESSION: Dorsal forefoot soft tissue swelling without demonstrated fracture. Electronically Signed: Kristopher Ba MD at 14:27 EST , Service support , CC: No Primary Care Physician; Mar Medrano SUPPORTABILITY ENGINEER Wheel Truer: Signed COMPREHENSIVE METABOLIC Collected: 09/26/2018 Status: F Source: [place] 9:45 AM [facility] RE[facility] Order Comment: Reason for Laboratory Test . TYPE CODE TESTS RESULT OUT OF RANGE REFERENCE UNITS LAB L501.0100 74-106 mg/dL Normal GLU 87 Result Comment: Please note revised GLUCOSE reference range effective 2017. LAB L501.1000 7-18 mg/dL Low BUN 2 LAB L501.1100 0.55-1.02 mg/dL Normal CREAT,SERUM 0.75 Result Comment: The validity of the calculated GFR AND GFRAA in patients over 70 years has not been determined. Clinical correlation is essential. LAB L501.1110 >60 mL/min Normal EST GFR 86 Result Comment: Non- GFR Calc LAB L501.1115 >60 mL/min Normal EST GFR - AA 104 Result Comment: GFR Calc LAB L501.1255 ml/min Normal Estimated CRCL 70.19 LAB L501.1300 10-20 RATIO Low BUN/CRE 2.7 LAB L501.1500 6.4-8. g/dL Low 2 T PROT 6.2 LAB L501.1800 3.2-5. g/dL Normal 0 ALB 3.2 LAB L501.1950 2.2-4. g/dL Normal 2 GLOB 3.0 LAB L501.2000 0.9-2. RATIO Normal 4 A/G 1.1 LAB L501.2200 8.5-10 mg/dL Normal .1 CA 8.7 LAB L501.4100 15-37 U/L Normal AST 17 LAB L501.4305 45-117 U/L Normal ALK P 48 LAB L501.4405 13-56 U/L Normal ALT 23 LAB L501.4600 0.20-1 mg/dL Normal .00 T BILI 0.50 LAB L501.5300 136-14 mmol/L Normal 5 NA 144 LAB L501.5600 3.5-5. mmol/L Low 1 K 3.3 LAB L501.5900 98-107 mmol/L High CL 108 LAB L501.6100 21.0-3 mmol/L Normal 2.0 CO2 27.0 LAB L501.6200 5-15 Normal GAP 9 Performed By: #### L500.4050 #### [facility] [address] [place], [address] CBC W/DIFF, AUTOMATED Collected: 09/26/2018 Status: F Source: [place] 9:45 AM [facility] Order Comment: Reason for Laboratory Test . TYPE CODE TESTS RESULT OUT OF RANGE REFERENCE UNITS LAB L100.7300 Normal ANISO 1+ LAB L100.1000 4.4-11.0 K/mm3 Normal WBC 4.7 LAB L100.1200 4.2-5.4 M/mm3 Low RBC 3.77 LAB L100.1300 12.0-15.0 g/dl Normal HGB 12.0 LAB L100.1400 37-47 % Normal HCT 38.3 LAB L100.1500 81-99 fL High MCV 101.6 LAB L100.1600 27.0-32.0 pg Normal MCH 31.8 LAB L100.1700 32-36 g/gl Low MCHC 31.3 LAB L100.1810 11.6-14.6 % High RDW CV 19.3 LAB L100.1820 35.1-43.9 fl High RDW SD 68.8 LAB L100.1900 150-450 K/mm3 Normal PLT 257 LAB L100.2000 6.2-12.0 fl Normal MPV 8.9 LAB L100.2100 47-70 % Normal NEUT% 67.0 LAB L100.2200 19-41 % Normal LY% 19.2 LAB L100.2300 0-10 % High MONO% 10.4 LAB L100.2400 0-5 % Normal EO% 1.9 LAB L100.2500 0-1 % Normal BASO% 0.6 LAB L100.2550 0.0-0.9 % Normal IM GRAN % 0.900 Result Comment: IG% - Immature Granulocytes (promyelocytes, myelocytes and metamyelocytes) > 1% indicates that a LEFT SHIFT is Present. LAB L100.2620 2.0-7.7 X10 3/uL Normal Absolute Neut 3.1 LAB L100.2720 0.83-4.51 X10 3/ul Normal Absolute Lymph 0.90 Performed By: #### L100.0100 #### [facility] [address] [place], [address] ONCOLOGY VISIT REPORT Observed: 09/11/2018 Status: F Source: SECOR 9:49 AM [facility] RE[facility] [address] [place] [address] OFFICE VISIT Date of Service: 09/11/18 0854 MR#: [id number] Acct: [id number] Name: LINDSAY ANTUNEZ Rep #: [id number] : 1965 From: Carolina Pak MD Age/Sex: 53/F Location: OMD Status: Signed - Problem List (1) Primary cancer of left female breast Status: Chronic (2) Regional lymph node metastasis present Status: Chronic (3) Bone metastases Status: Chronic (4) Brain metastases Status: Chronic (5) Anemia Status: Chronic (6) Fatigue Status: Chronic (7) Anorexia Status: Chronic - Date of Service Date of Service:: 09/11/18 - Chief Complaint Breast cancer on treatment - History of Present Illness Patient is a 52-year-old female perimenopausal who never had screening mammographies and became aware of a painless lump in the left breast and a second lump in the left axilla in August 2017. She did not seek any medical care until October 09, 2017 when she developed chest pain and dyspnea. She was seen in [place] emergency room, diagnosed and treated for pneumonia and referred to surgical consultation when the breast mass was noted on exam. Mammography and ultrasound examination confirmed the palpable abnormalities. On October 12, 2017 she underwent biopsies from the left breast mass and the left axilla that confirmed an invasive lobular carcinoma nuclear grade 3 ER negative, DC negative, HER-2 overexpressed 3+. On October [address] scan of the chest that showed emphysematous changes and diffuse bony lytic lesions throughout the thoracic and lumbar vertebrae and lower cervical segments, lytic lesions in humeral heads bilaterally, sternum, clavicles, left scapula and several ribs bilaterally. CT scan of the abdomen and pelvis showed an indeterminate lesion too small to characterize in the liver but no other visceral disease, widespread bony metastatic disease was again noted. A bone scan October 2017 initial staging showed diffuse skeletal metastatic disease. A bone biopsy October 27, 2017 confirmed metastatic cancer of breast origin. Brain MRI showed small multiple metastatic lesions one in the posterior right internal capsule, multiple bilateral small cerebellar metastases. CA 27-29 not elevated at diagnosis and therefore will not aid in follow-up. Her family history is notable for 2 maternal aunts with breast cancers but no first-degree relatives was breast cancer Treatment: Focal radiation therapy to the sites of disease in the STATE PILOT at [facility] 10/2017 Whole brain radiation therapy 3000 cGy of 6 MV photons in 10 fractions 02/28/18- 03/13/18. Systemic therapy was held during whole brain radiation. Cinomanljx-Wvieheeefxd-Lqsqvkqx 11/2017-03/2018 (6 cycles) : Excess toxicity Abraxane Herceptin : May 07/2018-August 06, 2018: Stable disease but patient developed STATE PILOT progression. Lapatinib-Capecitabine August 21, 2018 - Past Medical/Social History Past Medical History Past Medical History: Pneumonia Cancer: Breast cancer Other Cancer History: Radiation to brain Social History Social History: No changes Smoking Status Former smoker Review of Systems Constitutional:: Reports: Weakness, Fatigue, Weight gain. Denies: Fever, Sweats, Weight loss, Appetite change, Chills Cardiovascular:: Reports: Dyspnea on exertion. Denies: Chest pain, Palpitations, Orthopnea, PND, Shortness of breath Respiratory: Reports: Shortness of breath upon exertion. Denies: Cough, Hemoptysis, Shortness of Breath, Wheezing Gastrointestinal:: Reports: Diarrhea - Large volume watery, managed with Imodium 4 times daily. Denies: Abdominal pain, Nausea, Vomiting, Constipation, Hematochezia Genitourinary: Denies: Dysuria, Hematuria, 15, Flank pain Musculoskeletal:: Denies: Back pain, Myalgia, Arthralgia Skin: Denies: Rash, Skin Changes, Wounds Neurological:: Denies: Headache, Dizziness, Visual changes, Tinnitus, Hearing loss Psychiatric: Denies: Anxiety, Depression, Homicidal Ideations, Suicidal Ideations Vital Signs Height 5 ft 2 in Weight: 69.49 kg - Physical Exam General: Alert, Oriented x3, No apparent distress, - - ECOG 1-2 Cushingoid HEENT: Atraumatic, PERRLA, EOMI, Normocephalic Oropharynx:: Dry mucosa Neck:: Supple, Trachea midline, - - Port okay. Negative for: JVD, bilateral Cardiac:: Regular rate, Regular rhythm, Normal S1, Normal S2. Negative for: Murmur Lungs: Clear to auscultation, Excusion symmetrical. Negative for: Rhonchi, Wheezes Abdomen:: Soft, Non-tender, Non-distended. Negative for: Hepatosplenomegaly Extremities:: Negative for: Cyanosis, Edema Neurological: Neuro grossly intact Skin:: Negative for: Lesions, Rash, Petechiae, Ecchymosis Psychiatric:: Appropriate affect, Euthymic Lymphatics:: Negative for: Cervical lymphadenopathy, Supraclavicular lymphadenopathy Laboratory Data: Laboratory Tests WBC 7.0 (4.4-11.0) K/mm3 RBC 3.66 L (4.2-5.4) M/mm3 Hgb 11.6 L (12.0-15.0) g/dl Hct 36.5 L (37-47) % Assessment and Plan Assessment: 53-year-old female, perimenopausal at diagnosis with stage IV invasive lobular carcinoma of the left breast (T2, N3, M1) with metastases to left axillary, left supraclavicular and left cervical lymph nodes in addition to widespread metastatic disease to bone , an indeterminate lesion in the liver too small to characterize, and multiple bilateral brain metastases . Disease is ER negative, DC negative, HER-2 overexpressed. 1-Treated with focal radiation therapy to the brain at [facility] October 2017 then whole brain radiation due to STATE PILOT recurrence February 2018. By June 2018 she has evidence for extensive relapse in the brain. 2-Systemic combination of Pertuzumab, trastuzumab, and Taxotere received total 6 cycles between November - March 2018 with temporary interruption to allow brain radiation. Anemia and GI toxicity appeared to be the main side effects experienced. A bone scan in April 2018 did not report new bony lesions but continued demonstration of diffuse skeletal metastatic disease more confluent. Changed to second line treatment with weekly trastuzumab Abraxane with better tolerance. Imaging July 2018 showed stable disease. Comorbid conditions COPD, active smoker, poor dentition. Plan; #1 Concluded focal brain radiation for metastatic disease in the STATE PILOT at [facility] 10/2017 then whole brain radiation due to STATE PILOT recurrence in February 2018. However, by June 2018 with STATE PILOT recurrence prognosis is grave, is seeing Dr. Schroeder in regards to further management. A repeat whole brain radiation may offer her a very modest survival benefit but with increased STATE PILOT toxicities. #2 For systemic therapy she started third line with lapatinib (1250 mg daily continuously) and Xeloda (1500 mg twice daily 2 weeks on then 1 week rest) on August 21, 2018 due to probable better STATE PILOT penetration in view of progression of her disease in the brain in an attempt to hold off repeat whole brain radiation if possible. Treatment tolerated with manageable expected side effects mainly GI. We will start cycle 2 today, follow- up for toxicity on day 14 then at the beginning of cycle 3-day 21 #3 Pain management consulted to optimize pain control. #4 Continue bisphosphonate therapy for metastatic bone disease every 3 months in addition to calcium and vitamin D supplement #5 Anemia partly due to metastatic disease to bone marrow and suppression by systemic chemotherapy. No evidence for iron or B12 deficiency found. #6 Echo (/3M of Rx) last was July 25, 2018 showed preserved EF. #7 CA-27-29 not elevated at diagnosis and therefore not helpful and follow-up of disease course. Patient was seen with her , impression and plan discussed. Medications: Prescriptions This Visit Medication Instructions Recorded Lidocaine/Prilocaine 30 gm TP DAILY PRN PRN #1 cream..g. 10/19/17 [Lidocaine-Prilocaine Cream] Primary Care Provider: No Primary Care Phys Referring Provider: Carolina Pak MD 09/11/18 0949 <Electronically signed by Carolina Pak MD> Date Carolina Pak MD Cosigner Signature: Date (if applicable) CC: ONCOLOGY VISIT REPORT Observed: 09/11/2018 Status: F Source: [place] 8:56 AM [facility] [place] [address] OFFICE VISIT Date of Service: 09/04/18917 MR#: [id number] Acct: [id number] Name: LINDSAY ANTUNEZ Rep #: [id number] : 1965 From: Carolina Pak MD Age/Sex: 53/F Location: OMD Status: Signed with Addenda ADDENDUM by Carolina Pak MD on 09/11/18 at 0856 Code Visit Correction for treatment: Lapatinib-Capecitabine August 21, 2018 09/11/18 0856 <Electronically signed by Carolina Pak MD> Date Carolina Pak MD cc: * Signed - Problem List (1) Primary cancer of left female breast Status: Chronic (2) Regional lymph node metastasis present Status: Chronic (3) Bone metastases Status: Chronic (4) Brain metastases Status: Chronic (5) Anemia Status: Chronic (6) Fatigue Status: Chronic (7) Anorexia Status: Chronic - Date of Service Date of Service:: 09/04/18 - Chief Complaint Breast cancer on treatment - History of Present Illness Patient is a 52-year-old female perimenopausal who never had screening mammographies and became aware of a painless lump in the left breast and a second lump in the left axilla in August 2017. She did not seek any medical care until October 09, 2017 when she developed chest pain and dyspnea. She was seen in [place] emergency room, diagnosed and treated for pneumonia and referred to surgical consultation when the breast mass was noted on exam. Mammography and ultrasound examination confirmed the palpable abnormalities. On October 12, 2017 she underwent biopsies from the left breast mass and the left axilla that confirmed an invasive lobular carcinoma nuclear grade 3 ER negative, DC negative, HER-2 overexpressed 3+. On October [address] scan of the chest that showed emphysematous changes and diffuse bony lytic lesions throughout the thoracic and lumbar vertebrae and lower cervical segments, lytic lesions in humeral heads bilaterally, sternum, clavicles, left scapula and several ribs bilaterally. CT scan of the abdomen and pelvis showed an indeterminate lesion too small to characterize in the liver but no other visceral disease, widespread bony metastatic disease was again noted. A bone scan October 2017 initial staging showed diffuse skeletal metastatic disease. A bone biopsy October 27, 2017 confirmed metastatic cancer of breast origin. Brain MRI showed small multiple metastatic lesions one in the posterior right internal capsule, multiple bilateral small cerebellar metastases. CA 27-29 not elevated at diagnosis and therefore will not aid in follow-up. Her family history is notable for 2 maternal aunts with breast cancers but no first-degree relatives was breast cancer Treatment: Focal radiation therapy to the sites of disease in the STATE PILOT at [facility] 10/2017 Whole brain radiation therapy 3000 cGy of 6 MV photons in 10 fractions 02/28/18- 03/13/18. Systemic therapy was held during whole brain radiation. Gjnqzxvqkx-Bcmsnyljyjl-Rqwpnsoj 11/2017-03/2018 (6 cycles) : Excess toxicity Abraxane Herceptin : May 07/2018-August 06, 2018: Stable disease but patient developed STATE PILOT progression. Lapatinib-[place] decitabine August 21, 2018 - Interval History Cycle 1, day 15 toxicity check - Past Medical/Social History Past Medical History Past Medical History: Pneumonia Cancer: Breast cancer Other Cancer History: Radiation to brain Social History Social History: No changes Smoking Status Former smoker Review of Systems Constitutional:: Reports: Weakness - Unchanged able to do ADL, Fatigue. Denies: Fever, Sweats, Weight loss, Appetite change, Chills Cardiovascular:: Reports: Dyspnea on exertion. Denies: Chest pain, Palpitations, Orthopnea, PND, Shortness of breath Respiratory: Reports: Shortness of breath upon exertion. Denies: Cough, Hemoptysis, Shortness of Breath, Wheezing Gastrointestinal:: Reports: Nausea - 2 episodes in the past 2 weeks resolved with as needed Zofran, Diarrhea - Almost daily controllable with an average 2-3 Imodium per day. Denies: Abdominal pain, Vomiting, Constipation, Hematochezia Genitourinary: Denies: Dysuria, Hematuria, 15, Flank pain Musculoskeletal:: Denies: Back pain, Myalgia, Arthralgia Skin: Reports: Lesions - Chronic skin nodules no change. Denies: Rash, Skin Changes, Wounds Neurological:: Denies: Headache, Dizziness, Visual changes, Tinnitus, Hearing loss Psychiatric: Denies: Anxiety, Depression, Homicidal Ideations, Suicidal Ideations Vital Signs Height 5 ft 2 in Weight: 66.587 kg - Physical Exam General: Alert, Oriented x3, No apparent distress, - - Cushingoid, ECOG 1-2 HEENT: Atraumatic, PERRLA, EOMI, Normocephalic Oropharynx:: Dry mucosa, - - No thrush Neck:: Supple, Trachea midline. Negative for: JVD, bilateral Cardiac:: Regular rate, Regular rhythm, Normal S1, Normal S2. Negative for: Murmur Lungs: Clear to auscultation, Excusion symmetrical. Negative for: Rhonchi, Wheezes Abdomen:: Soft, Non-tender, Non-distended. Negative for: Hepatosplenomegaly Extremities:: Negative for: Cyanosis, Edema Neurological: Neuro grossly intact Skin:: Negative for: Lesions, Rash, Petechiae, Ecchymosis Psychiatric:: Appropriate affect, Euthymic Lymphatics:: Negative for: Cervical lymphadenopathy, Supraclavicular lymphadenopathy Laboratory Data: Microbiology 08/28/18 09:15 Blood Culture - Final Assessment and Plan Assessment: 53-year-old female, perimenopausal at diagnosis with stage IV invasive lobular carcinoma of the left breast (T2, N3, M1) with metastases to left axillary, left supraclavicular and left cervical lymph nodes in addition to widespread metastatic disease to bone , an indeterminate lesion in the liver too small to characterize, and multiple bilateral brain metastases . Disease is ER negative, DC negative, HER-2 overexpressed. 1-Treated with focal radiation therapy to the brain at [facility] October 2017 then whole brain radiation due to STATE PILOT recurrence February 2018. By June 2018 she has evidence for extensive relapse in the brain. 2-Systemic combination of Pertuzumab, trastuzumab, and Taxotere received total 6 cycles between November - March 2018 with temporary interruption to allow brain radiation. Anemia and GI toxicity appeared to be the main side effects experienced. A bone scan in April 2018 did not report new bony lesions but continued demonstration of diffuse skeletal metastatic disease more confluent. Changed to second line treatment with weekly trastuzumab Abraxane with better tolerance. Imaging July 2018 shows stable disease. Comorbid conditions COPD, active smoker, poor dentition. Plan; #1 Concluded focal brain radiation for metastatic disease in the STATE PILOT at [facility] 10/2017 then whole brain radiation due to STATE PILOT recurrence in February 2018. However, by June 2018 with STATE PILOT recurrence prognosis is grave, is seeing Dr. Schroeder in regards to further management. A repeat whole brain radiation may offer her a very modest survival benefit but with increased STATE PILOT toxicities. #2 For systemic therapy she started third line with lapatinib (1250 mg daily continuously) and Xeloda (1500 mg twice daily 2 weeks on then 1 week rest) on August 21, 2018 due to probable better STATE PILOT penetration in view of progression of her disease in the brain in an attempt to hold off repeat whole brain radiation if possible. Treatment tolerated with manageable expected side effects mainly GI. #3 Pain management consulted to optimize pain control. #4 Continue bisphosphonate therapy for metastatic bone disease every 3 months in addition to calcium and vitamin D supplement #5 Anemia partly due to metastatic disease to bone marrow and suppression by systemic chemotherapy. No evidence for iron or B12 deficiency found. #6 Echo (/3M of Rx) last was July 25, 2018 showed preserved EF. #7 CA-27-29 not elevated at diagnosis and therefore not helpful and follow-up of disease course. Patient was seen with her , impression and plan discussed. Medications: Prescriptions This Visit Medication Instructions Recorded Lidocaine/Prilocaine 30 gm TP DAILY PRN PRN #1 cream..g. 10/19/17 [Lidocaine-Prilocaine Cream] Primary Care Provider: Shana Primary Care Phys Referring Provider: Carolina Pak MD 09/04/18 0943 <Electronically signed by Carolina Pak MD> Date Carolina Pak MD Cosigner Signature: Date (if applicable) CC: CBC W/DIFF, AUTOMATED Collected: 09/11/2018 Status: F Source: [place] 8:16 AM [facility] Order Comment: Reason for Laboratory Test . TYPE CODE TESTS RESULT OUT OF RANGE REFERENCE UNITS LAB L100.1000 4.4-11.0 K/mm3 Normal WBC 7.0 LAB L100.1200 4.2-5.4 M/mm3 Low RBC 3.66 LAB L100.1300 12.0-15.0 g/dl Low HGB 11.6 LAB L100.1400 37-47 % Low HCT 36.5 LAB L100.1500 81-99 fL High MCV 99.7 LAB L100.1600 27.0-32.0 pg Normal MCH 31.7 LAB L100.1700 32-36 g/gl Low MCHC 31.8 LAB L100.1810 11.6-14.6 % High RDW CV 17.5 LAB L100.1820 35.1-43.9 fl High RDW SD 60.2 LAB L100.1900 150-450 K/mm3 Normal PLT 250 LAB L100.2000 6.2-12.0 fl Normal MPV 8.8 LAB L100.2100 47-70 % Normal NEUT% 65.8 LAB L100.2200 19-41 % Low LY% 17.1 LAB L100.2300 0-10 % High MONO% 14.5 LAB L100.2400 0-5 % Normal EO% 0.6 LAB L100.2500 0-1 % Normal BASO% 0.3 LAB L100.2550 0.0-0.9 % High IM GRAN % 1.700 Result Comment: IG% - Immature Granulocytes (promyelocytes, myelocytes and metamyelocytes) > 1% indicates that a LEFT SHIFT is Present. LAB L100.2620 2.0-7.7 X10 3/uL Normal Absolute Neut 4.6 LAB L100.2720 0.83-4.51 X10 3/ul Normal Absolute Lymph 1.20 Performed By: #### L100.0100 #### [facility] [address] [place], [place], [address] COMPREHENSIVE METABOLIC Collected: 09/11/2018 Status: F Source: [facility] 8:16 AM [facility] Order Comment: Reason for Laboratory Test . TYPE CODE TESTS RESULT OUT OF RANGE REFERENCE UNITS LAB L501.0100 74-106 mg/dL Normal GLU 95 Result Comment: Please note revised GLUCOSE reference range effective 2017. LAB L501.1000 7-18 mg/dL Normal BUN 10 LAB L501.1100 0.55-1.02 mg/dL Normal CREAT,SERUM 0.74 Result Comment: The validity of the calculated GFR AND GFRAA in patients over 70 years has not been determined. Clinical correlation is essential. LAB L501.1110 >60 mL/min Normal EST GFR 88 Result Comment: Non- GFR Calc LAB L501.1115 >60 mL/min Normal EST GFR - AA 107 Result Comment: GFR Calc LAB L501.1255 ml/min Normal Estimated CRCL 71.13 LAB L501.1300 10-20 RATIO Normal BUN/CRE 13.6 LAB L501.1500 6.4-8. g/dL Low 2 T PROT 5.9 LAB L501.1800 3.2-5. g/dL Normal 0 ALB 3.2 LAB L501.1950 2.2-4. g/dL Normal 2 GLOB 2.7 LAB L501.2000 0.9-2. RATIO Normal 4 A/G 1.2 LAB L501.2200 8.5-10 mg/dL Low .1 CA 8.2 LAB L501.4100 15-37 U/L Low AST 12 LAB L501.4305 45-117 U/L Low ALK P 37 LAB L501.4405 13-56 U/L Normal ALT 23 LAB L501.4600 0.20-1 mg/dL Normal .00 T BILI 0.30 LAB L501.5300 136-14 mmol/L Normal 5 NA 143 LAB L501.5600 3.5-5. mmol/L Low 1 K 3.4 LAB L501.5900 98-107 mmol/L High CL 108 LAB L501.6100 21.0-3 mmol/L Normal 2.0 CO2 26.0 LAB L501.6200 5-15 Normal GAP 9 Performed By: #### L500.4050 #### [facility] [address] [facility] [place], [address] ONC ECHOCARDIOGRAM Observed: 09/04/2018 Status: F Source: SECOR COMPLETE 5:08 PM [facility] Cardi[facility] Services [address] [place] [address] ONC Echo Complete 09/04/18 1002 MR#: [id number] Acct: [id number] Name: LINDSAY ANTUNEZ Rep #: [id number] : 1965 53 From: Amilcar Rees MD Attending Dr: Mar Medrano NP Status: REG CLI Ordering Dr: Mar Medrano SUPPORTABILITY ENGINEER-C Date: 09/04/18 Location: [facility] Sex: F C Admitted: Reason For Study: HTN, CARDIOTOXIC DRUG THERAPY Procedure This was a 2D Doppler, Color Flow transthoracic echocardiogram. Myocardial strain analysis was performed in this exam to aid in the assessment of cardiac function. The exam was of adequate technical quality. Exam performed in department. Left Ventricle Normal LV size. Left ventricular systolic function is normal. The estimated ejection fraction is 65 %. The global longitudinal strain = -19 % (normal). Diastolic function is indeterminate. No regional wall motion abnormalities noted. Right Ventricle Normal RV size. Normal systolic function. Atria Normal left atrium. Normal right atrium. No doppler evidence for ASD. Mitral Valve There is no mitral annular calcification. Normal mitral valve. Trivial mitral valve insufficiency. Tricuspid Valve Normal tricuspid valve. Trivial tricuspid valve insufficiency. Right ventricular systolic pressure estimated to be 27 mmHg. Aortic Valve Trisinus/trileaflet aortic valve. Normal aortic valve. Pulmonic Valve The pulmonic valve is not well visualized. Trivial pulmonic valve insufficiency. Great Vessels Normal sized aortic root. Pericardium/Pleural No pericardial effusion. MMode/2D Measurements AND Calculations LVIDd: 4.4 cm IVSd: 0.81 cm Ao root diam: 3.2 cm LVIDs: 3.1 cm LVPWd: 0.70 cm RVDd: 3.7 cm FS: 29.2 % LAV(MOD-bp): 27.6 ml EDV(MOD-sp4): 78.3 ml EDV(MOD-sp2): 58.2 ml LAV(MOD-bp) Indexed: 17.3 ml/m2 ESV(MOD-sp4): 31.4 ml EF(MOD-sp2): 67.9 % LAV(MOD-sp2): 29.7 ml EF(MOD-sp4): 59.9 % LAV(MOD-sp4): 25.4 ml SV(MOD-sp4): 46.8 ml SV(MOD-sp2): 39.5 ml LA A4 area: 12.2 cm2 LA dimension(2D): 3.7 cm RA A4 area: 10.2 cm2 Time Measurements MV dec time: 0.20 sec Doppler Measurements AND Calculations MV E max [place]: 80.3 cm/sec Lat Peak E' [place]: 8.8 cm/sec Med Peak E' [place]: 5.0 cm/sec MV A max [place]: 73.2 cm/sec E/E' lat: 9.1 E/E' med: 16.0 MV E/A: 1.1 Ao V2 max: 121.4 cm/sec LV V1 max: 105.6 cm/sec PA V2 max: 99.0 cm/sec Ao max P.9 mmHg LV V1 max P.5 mmHg TR max a[place]: 242.7 cm/sec TR max P.7 mmHg Interpretation Summary Left ventricular systolic function is normal. The estimated ejection fraction is 65 %. The global longitudinal strain = -19 % (normal). Trivial mitral valve insufficiency. Trivial tricuspid valve insufficiency. Trivial pulmonic valve insufficiency. Right ventricular systolic pressure estimated to be 27 mmHg. Diastolic function is indeterminate. Ordering Physician: Mar Medrano Referring Physician: Mar Medrano Performed By: Cordelia Roberts, RDCS, RVT 09/04/181706 Date Amilcar Rees MD CC: No Primary Care Physician; Mar Medrano SUPPORTABILITY ENGINEER Date Dictated: 09/04/18 1002 Date Transcribed: 09/04/181706 Wheel Truer: Signed CBC W/DIFF, AUTOMATED Collected: 09/04/2018 Status: F Source: [place] 10:00 AM [facility] Order Comment: Reason for Laboratory Test . TYPE CODE TESTS RESULT OUT OF RANGE REFERENCE UNITS LAB L100.1000 4.4-11.0 K/mm3 Normal WBC 8.5 LAB L100.1200 4.2-5.4 M/mm3 Low RBC 3.76 LAB L100.1300 12.0-15.0 g/dl Low HGB 11.6 LAB L100.1400 37-47 % Low HCT 36.6 LAB L100.1500 81-99 fL Normal MCV 97.3 LAB L100.1600 27.0-32.0 pg Normal MCH 30.9 LAB L100.1700 32-36 g/gl Low MCHC 31.7 LAB L100.1810 11.6-14.6 % High RDW CV 16.5 LAB L100.1820 35.1-43.9 fl High RDW SD 51.7 LAB L100.1900 150-450 K/mm3 Normal PLT 304 LAB L100.2000 6.2-12.0 fl Normal MPV 8.9 LAB L100.2100 47-70 % Normal NEUT% 69.3 LAB L100.2200 19-41 % Low LY% 15.3 LAB L100.2300 0-10 % High MONO% 12.7 LAB L100.2400 0-5 % Normal EO% 0.7 LAB L100.2500 0-1 % Normal BASO% 0.2 LAB L100.2550 0.0-0.9 % High IM GRAN % 1.800 Result Comment: IG% - Immature Granulocytes (promyelocytes, myelocytes and metamyelocytes) > 1% indicates that a LEFT SHIFT is Present. LAB L100.2620 2.0-7.7 X10 3/uL Normal Absolute Neut 5.9 LAB L100.2720 0.83-4.51 X10 3/ul Normal Absolute Lymph 1.30 Performed By: #### L100.0100 #### [facility] [address] [facility] [place], [address] Observed: 08/28/2018 Status: F Source: SECOR CULTURE, SPUTUM 3:00 PM [facility] Reason for Laboratory Test . Gram Stain Acceptable Specimen? Yes (<25 Epithelial cells per/lpf) Gram Stain 1+ White Blood Cells 1+ Epithelial cells 3+ Gram positive cocci Resp. Culture Mixed normal respiratory jose e. No Haemophilus, Streptococcus pneumoniae, beta-hemolytic Streptococcus or Staphylococcus aureus isolated. Performed By: #### M100.0800 #### [facility] [address] [facility] [place], [address] ONCOLOGY VISIT REPORT Observed: 08/28/2018 Status: F Source: SECOR 10:50 AM [facility] [facility] [place] [address] OFFICE VISIT Date of Service: 08/28/18 0839 MR#: [id number] Acct: [id number] Name: LINDSAY ANTUNEZ Rep #: [id number] : 1965 From: Mar SANTA Age/Sex: 53/F Location: OMD Status: Signed Subjective - Date of Service Date of Service:: 08/28/18 - Chief Complaint Metastatic breast cancer on treatment - History of Present Illness Patient is a 53-year-old female perimenopausal who never had screening mammographies and became aware of a painless lump in the left breast and a second lump in the left axilla in August 2017. She did not seek any medical care until October 09, 2017 when she developed chest pain and dyspnea. She was seen in [facility] emergency room, diagnosed and treated for pneumonia and referred to surgical consultation when the breast mass was noted on exam. Mammography and ultrasound examination confirmed the palpable abnormalities. On October 12, 2017 she underwent biopsies from the left breast mass and the left axilla that confirmed an invasive lobular carcinoma nuclear grade 3 ER negative, DC negative, HER-2 overexpressed 3+. On October [address] scan of the chest that showed emphysematous changes and diffuse bony lytic lesions throughout the thoracic and lumbar vertebrae and lower cervical segments, lytic lesions in humeral heads bilaterally, sternum, clavicles, left scapula and several ribs bilaterally. CT scan of the abdomen and pelvis showed an indeterminate lesion too small to characterize in the liver but no other visceral disease, widespread bony metastatic disease was again noted. A bone scan October 2017 initial staging showed diffuse skeletal metastatic disease. A bone biopsy October 27, 2017 confirmed metastatic cancer of breast origin. Brain MRI showed small multiple metastatic lesions one in the posterior right internal capsule, multiple bilateral small cerebellar metastases. CA 27-29 not elevated at diagnosis and therefore will not aid in follow-up. Her family history is notable for 2 maternal aunts with breast cancers but no first-degree relatives was breast cancer Treatment: Focal radiation therapy to the sites of disease in the STATE PILOT at [facility] 10/2017 Whole brain radiation therapy 3000 cGy of 6 MV photons in 10 fractions 02/28/18- 03/13/18. Systemic therapy was held during whole brain radiation. Obfwuqrsgt-Zdwhxtxmzrk-Tnanoxyx 11/2017-03/2018 (6 cycles) : Excess toxicity Abraxane Herceptin : May 07/2018-August 06, 2018: Stable disease but patient developed STATE PILOT progression. Lapatinib-Capecitabine August 21, 2018- - Interval History The patient is presenting to clinic accompanied by spouse for a 1 week follow up. States she began lapatinib and capecitabine on 08/21/18 as advised. Verbalizes she is taking both exactly as advised. Now experiencing constipation (for which she takes sennekot daily) and diarrhea (attempting to manage with Imodium), approx 1-2 days of each. LBM 08/27/18, now soft. No bloody/mucous like stools. Notes increased fatigue and chronic cough more productive. No increased SOB, hemoptysis, CP, palpitations. Specifically denies fever/chills, rash, mouth sores, abd pain and swelling/pain of her extremities. - Past Medical/Social History Past Medical History Past Medical History: Pneumonia Cancer: Breast cancer Other Cancer History: Radiation to brain Social History Social History: No changes Smoking Status Former smoker Review of Systems Constitutional:: Reports: Weakness, Fatigue. Denies: Fever, Sweats, Weight loss, Appetite change, Chills Cardiovascular:: Denies: Chest pain, Palpitations, Dyspnea on exertion, Orthopnea, PND, Shortness of breath Respiratory: Reports: Cough. Denies: Hemoptysis, Shortness of Breath, Wheezing Gastrointestinal:: Reports: Nausea - well controlled with ondansetron, Diarrhea, Constipation - See HPI. Denies: Abdominal pain, Vomiting, Hematochezia Genitourinary: Denies: Dysuria, Hematuria, 15, Flank pain Musculoskeletal:: Reports: Back pain Skin: Denies: Rash, Skin Changes, Wounds Neurological:: Reports: Headache - 1-2/week, Numbness - Affecting feet bilateral, no worsening of symptom, Tingling. Denies: Dizziness, Frequent falls, Visual changes, Tinnitus, Hearing loss Psychiatric: Denies: Anxiety, Depression, Homicidal Ideations, Suicidal Ideations Vital Signs Height 5 ft 2 in Weight: 147 lb 12.8 oz - Physical Exam General: Alert, Oriented x3, No apparent distress HEENT: Atraumatic, Normocephalic, - - Alopecia Oropharynx:: Negative for: Dry mucosa, Ulcerated lesions Neck:: Supple, Trachea midline. Negative for: JVD, bilateral Cardiac:: Regular rate, Regular rhythm, Normal S1, Normal S2. Negative for: Murmur Lungs: Clear to auscultation, Excusion symmetrical. Negative for: Wheezes, Tachypneic, Increased respiratory effort Abdomen:: Bowel sounds x 4, Soft, Non-tender, Non-distended. Negative for: Hepatosplenomegaly Extremities:: Negative for: Cyanosis, Edema, Calf tenderness Neurological: Neuro grossly intact Skin:: - - Port right upper chest access with gripper covered with DSD. Negative for: Lesions, Rash, Petechiae, Ecchymosis Psychiatric:: Appropriate affect, Euthymic Lymphatics:: Negative for: Cervical lymphadenopathy, Supraclavicular lymphadenopathy, Axillary lymphadenopathy Laboratory Data: Laboratory Tests WBC 12.0 H (4.4-11.0) K/mm3 Assessment and Plan 53-year-old female, perimenopausal with stage IV invasive lobular carcinoma of the left breast (T2, N3, M1) with metastases to left axillary, left supraclavicular and left cervical lymph nodes in addition to widespread metastatic disease to bone , an indeterminate lesion in the liver too small to characterize, and multiple bilateral low- volume brain metastases without visible edema. Disease is ER negative, DC negative, HER-2 overexpressed. Echocardiography showed adequacy of cardiac function with an ejection fraction 65%. #1 Concluded focal brain radiation for metastatic disease in the STATE PILOT at [facility] 10/2017 then whole brain radiation due to STATE PILOT recurrence in February 2018. However, by June 2018 with STATE PILOT recurrence prognosis is grave, is seeing Dr. Schroeder in regards to further management. A repeat whole brain radiation may offer her a very modest survival benefit but with increased STATE PILOT toxicities. #2 For systemic therapy changed to third line with lapatinib (1250 mg daily continuously) and Xeloda (1500 mg twice daily 2 weeks on then 1 week rest) due to probable better STATE PILOT penetration in view of progression of her disease in the brain in an attempt to hold off repeat whole brain radiation if possible. Began 08/20/18. Overall tolerating well with the exception of diarrhea alternating with constipation. Advised that she stop Senokot daily and replace with Colace 100 mg daily and Imodium as needed. CBC reviewed, shows neutrophilic leukocytosis. Orders placed for Blood cultures x2, sputum cx, UA, C AND S and CXR. Afebrile and asymptomatic at this time. #3 Pain management consulted to optimize pain control- Well managed on current medications. #4 Continue bisphosphonate therapy for metastatic bone disease every 3 months in addition to calcium and vitamin D supplement- Due 10/09/17. #5 Anemia partly due to metastatic disease to bone marrow and suppression by systemic chemotherapy. No evidence for iron or B12 deficiency found. #6 Echo (/3M of Rx) last was July 25, 2018 showed preserved EF- BP elevated today and trend over the last several weeks is up. She admits to be anxious about today's visit. Orders placed for repeat echo. #7 CA-27-29 not elevated at diagnosis and therefore not helpful and follow-up of disease course. Mar Medrano, MSN, REGIONAL ENVIRONMENTAL MANAGER-C, AOCNP Medications: Prescriptions This Visit Medication Instructions Recorded Lidocaine/Prilocaine 30 gm TP DAILY PRN PRN #1 cream..g. 10/19/17 [Lidocaine-Prilocaine Cream] Primary Care Provider: No Primary Care Phys Referring Provider: Carolina Pak MD - Problem List (1) Primary cancer of left female breast Status: Chronic (2) Bone metastases Status: Chronic (3) Brain metastases Status: Chronic (4) Hypertension Status: Chronic Qualifiers: Hypertension type: unspecified Qualified Code(s): I10 - Essential (primary) hypertension (5) Encounter for monitoring cardiotoxic drug therapy Status: Acute 08/28/18 1050 <Electronically signed by Mar SANTA> Date Mar SANTA Cosigner Signature: Date (if applicable) CC: CHEST PA AND LATERAL Observed: 08/28/2018 Status: F Source: SECOR 9:48 AM [facility] Imaging Services [address] [place] [address] Chest PA and Lateral MR#: [id number] Acct: [id number] Name: LINDSAY ANTUNEZ Rep #: [id number] : 1965 F 53 From: Edgar Flannery MD PCP: En Granados III, MD Status: REG CLI Study: Chest PA and Lateral Date of Exam: 08/28/18 Exam# [id number] Ordering Dr: Mar Medrano STUDY: X-RAY CHEST REASON FOR EXAM: Female, 53 years old. Cough. Elevated white cell count. Patient has a history of a wrist carcinoma with chemotherapy. TECHNIQUE: PA and lateral views of the chest. COMPARISON: Comparison is made with prior study April 29, 2008. FINDINGS: A right-sided angel catheter is in situ with the tip in the proximal portion of the superior vena cava. The lungs are clear and expanded. Scattered calcified granulomas. There is no demonstrated pleural abnormality. Normal size heart. Normal mediastinum and anjel. Normal visualized pulmonary arteries. Normal visualized aortic arch and descending thoracic aorta. There are degenerative changes of the visualized thoracic spine. Loss of height of the upper lumbar vertebrae. Prostatic disease should be ruled out. Abnormal sclerotic density seen in both humeral heads. This is suggestive of possible bone metastasis. There is no demonstrated abnormality of the visualized soft tissue structures of the upper abdomen. RAD/Chest PA and Lateral IMPRESSION: The lungs are clear. Findings suggestive of possible metastasis involving both humeral heads and upper lumbar vertebrae. Electronically Signed: Edgar Flannery MD at 15:56 EST Tel [phone], Service support , CC: En Granados III, MD; Mar Medrano NP Wheel Truer: Signed URINALYSIS, COMPLETE Collected: 08/28/2018 Status: F Source: K[place]STAL 9:15 AM [facility] Order Comment: Reason for Laboratory Test . How was Urine Obtained? VEGETABLE LOADER MACHINE OPERATOR TO SPECIFY TYPE CODE TESTS RESULT OUT OF RANGE REFERENCE UNITS LAB L400.3000 Yellow COLOR Normal Yellow LAB L400.3050 Clear Normal CLARITY Clear LAB L400.3200 Normal mg/dl Normal GLUCOSE, UR Normal LAB L400.3300 Negative mg/dL Normal BILIRUBIN URINE Negative LAB L400.3400 Negative mg/dl Normal KETONE UR Negative LAB L400.3465 1.002-1.030 Normal SP.GR. DIPSTX 1.010 LAB L400.3550 5.0 - 8.0 pH UR Normal 6.5 LAB L400.3600 Negative mg/dl PROT Normal DIPSTX Negative LAB L400.3700 Normal mg/dl Normal UROBILI Normal LAB L400.3750 Negative Normal NITRITE UR Negative LAB L400.3780 Negative /ul Normal OCCULT BLOOD-UR Negative LAB L400.3800 Negative /ul High LEUK 25 ESTERASE LAB L400.4050 0-5 /hpf WBC Normal 0-5 SEEN LAB L400.4100 0-5 /hpf 0 Normal RBC-UA SEEN LAB L400.4150 5-10 /hpf SQUAM Normal EPI 0-5 SEEN LAB L400.4300 None Seen /hpf Normal BACTERIA RARE LAB L400.4350 <or=2+ /hpf 0 Normal MUCUS, URINE SEEN Performed By: #### L400.0001 #### [facility] [address] [place] [address]. [place], [place], [address] Observed: 08/28/2018 Status: F Source: KRYSTAL CULTURE, URINE 9:15 AM [facility] Reason for Laboratory Test . Urine Culture Shelby Count 4800 cfu/mL Below infection level. ORGANISM 1: Gram Positive Cocci Shelby Count 1000-10,000 MIX CULTURE Mixed contaminants. Submit a new specimen if indicated. Performed By: #### M100.0650 #### [facility] [address] [place] [address]. [place], [place], [id number] Observed: 08/28/2018 Status: F Source: KRYSTAL CULTURE, BLOOD (WB) 9:15 AM [facility] Reason for Laboratory Test . BC No growth in 5 days. Performed By: #### M200.1000 #### [facility] [address] [place] [address]. [place], [place], [id number] Observed: 08/28/2018 Status: F Source: K[place] CULTURE, BLOOD (WB) 9:15 AM [facility] Reason for Laboratory Test . BC No growth in 5 days. Performed By: #### M200.1000 #### [facility] [address] [place] [address]. [place], [place], [id number] CBC W/DIFF, AUTOMATED Collected: 08/28/2018 Status: C Source: KRYSTAL 8:00 AM [facility] Order Comment: Reason for Laboratory Test . TYPE CODE TESTS RESULT OUT OF REFERENCE UNITS RANGE LAB L100.1000 4.4-11.0 K/mm3 WBC High 12.0 LAB L100.1200 4.2-5.4 M/mm3 Low RBC 4.09 LAB L100.1300 12.0-15.0 g/dl HGB Normal 12.4 LAB L100.1400 37-47 % HCT Normal 38.7 LAB L100.1500 81-99 fL MCV Normal 94.6 LAB L100.1600 27.0-32.0 pg MCH Normal 30.3 LAB L100.1700 32-36 g/gl MCHC Normal 32.0 LAB L100.1810 11.6-14.6 % RDW CV High 14.8 LAB L100.1820 35.1-43.9 fl RDW SD High 49.4 LAB L100.1900 150-450 K/mm3 PLT Normal 319 LAB L100.2000 6.2-12.0 fl MPV Normal 8.7 LAB L100.3100 MANUAL DIFF CELLS COUNTED Normal 100 LAB L100.3200 47-70 % SEGS High 79 LAB L100.3400 0-1 % META Normal 1 LAB L100.3500 0-0 MYELO High 1 LAB L100.3700 0-0 % BLAST High alert 1 LAB L100.3800 19-41 % Low LYMPH 9 LAB L100.3900 0-10 % MONOCYTE Normal 9 LAB L100.4400 0-5 % NRBC,MANUAL CT Normal 1 LAB L100.5500 ADEQ PLT EST Normal ADEQUATE LAB L100.7000 NORM C AND C NORMAL RED CELL MORPH Normal NORM C+C LAB L100.7500 POLYCHROMASIA Normal RARE LAB L100.2620 2.0-7.7 X10 3/uL Absolute Neut High 9.5 LAB L100.2720 0.83-4.51 X10 3/ul Absolute Lymph Normal 1.08 LAB L100.9900 PATH REV Normal Reviewed Result Comment: Neutrophilic leukocytosis. Clinical correlation necessary. Chalo Chappell M.D. 08/29/18 AMENDED REPORT 08/29/18 2565 PATH REV previously reported as: January Performed By: #### L100.0100 #### [facility] [place] [address], [address] ONCOLOGY VISIT REPORT Observed: 08/20/2018 Status: F Source: SECOR 11:51 AM [facility] REPOSITORY [facility] [place] [address] OFFICE VISIT Date of Service: 08/20/18 1133 MR#: [id number] Acct: [id number] Name: LINDSAY ANTUNEZ Rep #: [id number] : 1965 From: aCrolina Pak MD Age/Sex: 53/F Location: OMD Status: Signed - Problem List (1) Primary cancer of left female breast Status: Chronic (2) Regional lymph node metastasis present Status: Chronic (3) Bone metastases Status: Chronic (4) Brain metastases Status: Chronic (5) Anemia Status: Chronic (6) Fatigue Status: Chronic (7) Anorexia Status: Chronic - Date of Service Date of Service:: 08/20/18 - Chief Complaint Metastatic breast cancer on treatment - History of Present Illness Patient is a 52-year-old female perimenopausal who never had screening mammographies and became aware of a painless lump in the left breast and a second lump in the left axilla in August 2017. She did not seek any medical care until October 09, 2017 when she developed chest pain and dyspnea. She was seen in [facility] emergency room, diagnosed and treated for pneumonia and referred to surgical consultation when the breast mass was noted on exam. Mammography and ultrasound examination confirmed the palpable abnormalities. On October 12, 2017 she underwent biopsies from the left breast mass and the left axilla that confirmed an invasive lobular carcinoma nuclear grade 3 ER negative, DC negative, HER-2 overexpressed 3+. On October [address] scan of the chest that showed emphysematous changes and diffuse bony lytic lesions throughout the thoracic and lumbar vertebrae and lower cervical segments, lytic lesions in humeral heads bilaterally, sternum, clavicles, left scapula and several ribs bilaterally. CT scan of the abdomen and pelvis showed an indeterminate lesion too small to characterize in the liver but no other visceral disease, widespread bony metastatic disease was again noted. A bone scan October 2017 initial staging showed diffuse skeletal metastatic disease. A bone biopsy October 27, 2017 confirmed metastatic cancer of breast origin. Brain MRI showed small multiple metastatic lesions one in the posterior right internal capsule, multiple bilateral small cerebellar metastases. CA 27-29 not elevated at diagnosis and therefore will not aid in follow-up. Her family history is notable for 2 maternal aunts with breast cancers but no first-degree relatives was breast cancer Treatment: Focal radiation therapy to the sites of disease in the STATE PILOT at [facility] 10/2017 Whole brain radiation therapy 3000 cGy of 6 MV photons in 10 fractions 02/28/18- 03/13/18. Systemic therapy was held during whole brain radiation. Dnkrcgfwyx-Bzzgvsmclbv-Hgvhmfqf 11/2017-03/2018 (6 cycles) : Excess toxicity Abraxane Herceptin : May 07/2018-August 06, 2018: Stable disease but patient developed STATE PILOT progression. Lapatinib-[place]ape decitabine August 21, 2018 - Past Medical/Social History Past Medical History Past Medical History: Pneumonia Cancer: Breast cancer Other Cancer History: Radiation to brain Social History Social History: No changes Smoking Status Former smoker Review of Systems Constitutional:: Reports: Weakness, Fatigue. Denies: Fever, Sweats, Weight loss, Appetite change, Chills Cardiovascular:: Reports: Dyspnea on exertion. Denies: Chest pain, Palpitations, Orthopnea, PND, Shortness of breath Respiratory: Reports: Shortness of breath upon exertion, Wheezing - Occasional. Denies: Cough, Hemoptysis, Shortness of Breath Gastrointestinal:: Denies: Abdominal pain, Nausea, Vomiting, Diarrhea, Constipation, Hematochezia Genitourinary: Denies: Dysuria, Hematuria, 15, Flank pain Musculoskeletal:: Denies: Back pain, Myalgia, Arthralgia Skin: Reports: Lesions - Chronic lesions no change. Denies: Rash, Skin Changes, Wounds Neurological:: Reports: Headache - Once or twice a week. Denies: Dizziness, Visual changes, Tinnitus, Hearing loss Psychiatric: Denies: Anxiety, Depression, Homicidal Ideations, Suicidal Ideations Vital Signs Height 5 ft 2 in Weight: 66.587 kg - Physical Exam General: Alert, Oriented x3, No apparent distress, - - ECOG 1-2, cushingoid HEENT: Atraumatic, PERRLA, EOMI, Normocephalic Oropharynx:: Dry mucosa, - - Thrush Neck:: Supple, Trachea midline, - - Port okay. Negative for: JVD, bilateral Cardiac:: Regular rate, Regular rhythm, Normal S1, Normal S2. Negative for: Murmur Lungs: Clear to auscultation, Diminished, Excusion symmetrical. Negative for: Rhonchi, Wheezes Abdomen:: Soft, Non-tender, Non-distended. Negative for: Hepatosplenomegaly Extremities:: Negative for: Cyanosis, Edema Neurological: Neuro grossly intact Skin:: Negative for: Lesions, Rash, Petechiae, Ecchymosis Psychiatric:: Appropriate affect, Euthymic Lymphatics:: Negative for: Cervical lymphadenopathy, Supraclavicular lymphadenopathy Laboratory Data: CBC, CMP reviewed in EMR Assessment and Plan Assessment: 53-year-old female, perimenopausal at diagnosis with stage IV invasive lobular carcinoma of the left breast (T2, N3, M1) with metastases to left axillary, left supraclavicular and left cervical lymph nodes in addition to widespread metastatic disease to bone , an indeterminate lesion in the liver too small to characterize, and multiple bilateral brain metastases . Disease is ER negative, DC negative, HER-2 overexpressed. 1-Treated with focal radiation therapy to the brain at [facility] October 2017 then whole brain radiation due to STATE PILOT recurrence February 2018. By June 2018 she has evidence for extensive relapse in the brain. 2-Systemic combination of Pertuzumab, trastuzumab, and Taxotere received total 6 cycles between November - March 2018 with temporary interruption to allow brain radiation. Anemia and GI toxicity appeared to be the main side effects experienced. A bone scan in April 2018 did not report new bony lesions but continued demonstration of diffuse skeletal metastatic disease more confluent. Changed to second line treatment with weekly trastuzumab Abraxane with better tolerance. Imaging July 2018 shows stable disease. Comorbid conditions COPD, active smoker, poor dentition. Plan; #1 Concluded focal brain radiation for metastatic disease in the STATE PILOT at [facility] 10/2017 then whole brain radiation due to STATE PILOT recurrence in February 2018. However, by June 2018 with STATE PILOT recurrence prognosis is grave, is seeing Dr. Schroeder in regards to further management. A repeat whole brain radiation may offer her a very modest survival benefit but with increased STATE PILOT toxicities. #2 For systemic therapy she will start third line with lapatinib (1250 mg daily continuously) and Xeloda (1500 mg twice daily 2 weeks on then 1 week rest) on August 21, 2018 due to probable better STATE PILOT penetration in view of progression of her disease in the brain in an attempt to hold off repeat whole brain radiation if possible. She will be monitored closely with weekly blood work and clinical exam. #3 Pain management consulted to optimize pain control. #4 Continue bisphosphonate therapy for metastatic bone disease every 3 months in addition to calcium and vitamin D supplement #5 Anemia partly due to metastatic disease to bone marrow and suppression by systemic chemotherapy. No evidence for iron or B12 deficiency found. #6 Echo (/3M of Rx) last was July 25, 2018 showed preserved EF. #7 CA-27-29 not elevated at diagnosis and therefore not helpful and follow-up of disease course. Patient was seen with her , impression and plan discussed. Medications: Prescriptions This Visit Medication Instructions Recorded Primary Care Provider: No Primary Care Phys Referring Provider: Carolina Pak MD 08/20/18 1151 <Electronically signed by Carolina Pak MD> Date Carolina Pak MD Cosigner Signature: Date (if applicable) CC: ONCOLOGY VISIT REPORT Observed: 08/15/2018 Status: F Source: SECOR 2:24 PM [facility] REPOSITORY [facility] [address] [place] [id number] OFFICE VISIT Date of Service: 08/15/18 1313 MR#: [id number] Acct: [id number] Name: LINDSAY ANTUNEZ Rep #: [id number] : 1965 From: Mar SANTA Age/Sex: 53/F Location: OMD Status: Signed Subjective - Date of Service Date of Service:: 08/15/18 - Chief Complaint Chemotherapy Education- Tykerb/Xeloda - History of Present Illness Patient is a 53-year-old female perimenopausal who never had screening mammographies and became aware of a painless lump in the left breast and a second lump in the left axilla in August 2017. She did not seek any medical care until October 09, 2017 when she developed chest pain and dyspnea. She was seen in [facility] emergency room, diagnosed and treated for pneumonia and referred to surgical consultation when the breast mass was noted on exam. Mammography and ultrasound examination confirmed the palpable abnormalities. On October 12, 2017 she underwent biopsies from the left breast mass and the left axilla that confirmed an invasive lobular carcinoma nuclear grade 3 ER negative, DC negative, HER-2 overexpressed 3+. On October [address] scan of the chest that showed emphysematous changes and diffuse bony lytic lesions throughout the thoracic and lumbar vertebrae and lower cervical segments, lytic lesions in humeral heads bilaterally, sternum, clavicles, left scapula and several ribs bilaterally. CT scan of the abdomen and pelvis showed an indeterminate lesion too small to characterize in the liver but no other visceral disease, widespread bony metastatic disease was again noted. A bone scan October 2017 initial staging showed diffuse skeletal metastatic disease. A bone biopsy October 27, 2017 confirmed metastatic cancer of breast origin. Brain MRI showed small multiple metastatic lesions one in the posterior right internal capsule, multiple bilateral small cerebellar metastases. CA 27-29 not elevated at diagnosis and therefore will not aid in follow-up. Her family history is notable for 2 maternal aunts with breast cancers but no first-degree relatives was breast cancer Treatment: Focal radiation therapy to the sites of disease in the STATE PILOT at [facility] 10/2017 Whole brain radiation therapy 3000 cGy of 6 MV photons in 10 fractions 02/28/18- 03/13/18. Systemic therapy was held during whole brain radiation. Akflcvfzgq-Ebxprbryoan-Dltmizhm 11/2017-03/2018 (6 cycles) : Excess toxicity Abraxane Herceptin : May 07/2018-August 06, 2018: Stable disease but patient developed STATE PILOT progression - Interval History The patient is presenting to clinic accompanied by for an education visit. It has been proposed that she begin treatment with lapatinib and capecitabine. - Past Medical/Social History Past Medical History Past Medical History: Pneumonia Cancer: Breast cancer Other Cancer History: Radiation to brain Social History Social History: No changes Smoking Status Former smoker Review of Systems Constitutional:: Denies: Fever, Sweats, Weight loss, Appetite change, Chills Cardiovascular:: Denies: Chest pain, Palpitations, Dyspnea on exertion, Orthopnea, PND, Shortness of breath Respiratory: Denies: Cough, Hemoptysis, Shortness of Breath, Wheezing Gastrointestinal:: Denies: Abdominal pain, Nausea, Vomiting, Diarrhea, Constipation, Hematochezia Genitourinary: Denies: Dysuria, Hematuria, 15, Flank pain Musculoskeletal:: Denies: Back pain, Myalgia, Arthralgia Skin: Denies: Rash, Skin Changes, Wounds Neurological:: Denies: Headache, Dizziness, Visual changes, Tinnitus, Hearing loss Psychiatric: Denies: Anxiety, Depression, Homicidal Ideations, Suicidal Ideations Vital Signs Height 5 ft 2 in Weight: 148 lb 9.6 oz - Physical Exam General: Alert, Oriented x3, No apparent distress HEENT: Atraumatic, Normocephalic Psychiatric:: Appropriate affect, Euthymic Assessment and Plan 53-year-old female, perimenopausal with stage IV invasive lobular carcinoma of the left breast (T2, N3, M1) with metastases to left axillary, left supraclavicular and left cervical lymph nodes in addition to widespread metastatic disease to bone , an indeterminate lesion in the liver too small to characterize, and multiple bilateral low- volume brain metastases without visible edema. Disease is ER negative, DC negative, HER-2 overexpressed. Echocardiography showed adequacy of cardiac function with an ejection fraction 65%. #1 Concluded focal brain radiation for metastatic disease in the STATE PILOT at [facility] 10/2017 then whole brain radiation due to STATE PILOT recurrence in February 2018. However, by June 2018 with STATE PILOT recurrence prognosis is grave, is seeing Dr. Schroeder in regards to further management. A repeat whole brain radiation may offer her a very modest survival benefit but with increased STATE PILOT toxicities. #2 For systemic therapy I advised change to third line with lapatinib (1250 mg daily continuously) and Xeloda (1500 mg twice daily 2 weeks on then 1 week rest) due to probable better STATE PILOT penetration in view of progression of her disease in the brain in an attempt to hold off repeat whole brain radiation if possible. The patient has been thoroughly educated to risks/benefits associated with lapatinib/capecitabine. Specifically, she has been educated to potential side effects, recommendations for symptom management, and circumstances in which she should contact provider immediately, such as the development of any signs/symptoms of infection inclusive of temperature > 100.4. Encouraged to go directly to ED should fever occur outside normal clinic hours. She has been provided written educational information and after hours contact information. Greater than 50% of this one hour visit was spent in counseling and a significant amount of time was allotted for questions. All the patient's concerns were addressed to her satisfaction and she is agreeable to proceed. Tentatively, she will commence with cycle 1 on 08/21/[address] Pak on 08/20/18. #3 Pain management consulted to optimize pain control. #4 Continue bisphosphonate therapy for metastatic bone disease every 3 months in addition to calcium and vitamin D supplement- Due 10/09/17. #5 Anemia partly due to metastatic disease to bone marrow and suppression by systemic chemotherapy. No evidence for iron or B12 deficiency found. #6 Echo (/3M of Rx) last was July 25, 2018 showed preserved EF. #7 CA-27-29 not elevated at diagnosis and therefore not helpful and follow-up of disease course. Mar Medrano, MSN, REGIONAL ENVIRONMENTAL MANAGER-C, AOCNP Medications: Prescriptions This Visit Medication Instructions Recorded Primary Care Provider: No Primary Care Phys Referring Provider: Carolina Pak MD - Problem List (1) Primary cancer of left female breast Status: Chronic (2) Bone metastases Status: Chronic (3) Brain metastases Status: Chronic (4) Educational circumstance Status: Acute 08/15/18 1424 <Electronically signed by Mar Medrano NP-C> Date Mar HERNANDESC Cosigner Signature: Date (if applicable) CC: COMPREHENSIVE METABOLIC Collected: 08/15/2018 Status: F Source: KRYSTAL KEY 12:51 PM [facility] REPOSITORY Order Comment: Reason for Laboratory Test . TYPE CODE TESTS RESULT OUT OF RANGE REFERENCE UNITS LAB L501.0100 74-106 mg/dL Normal GLU 83 Result Comment: Please note revised GLUCOSE reference range effective 2017. LAB L501.1000 7-18 mg/dL Low BUN 5 LAB L501.1100 0.55-1.02 mg/dL Normal CREAT,SERUM 0.63 Result Comment: The validity of the calculated GFR AND GFRAA in patients over 70 years has not been determined. Clinical correlation is essential. LAB L501.1110 >60 mL/min Normal EST GFR 106 Result Comment: Non- GFR Calc LAB L501.1115 >60 mL/min Normal EST GFR - AA 128 Result Comment: GFR Calc LAB L501.1255 ml/min Normal Estimated CRCL 83.56 LAB L501.1300 10-20 RATIO Low BUN/CRE 7.9 LAB L501.1500 6.4-8. g/dL Low 2 T PROT 6.3 LAB L501.1800 3.2-5. g/dL Normal 0 ALB 3.5 LAB L501.1950 2.2-4. g/dL Normal 2 GLOB 2.8 LAB L501.2000 0.9-2. RATIO Normal 4 A/G 1.2 LAB L501.2200 8.5-10 mg/dL Normal .1 CA 8.7 LAB L501.4100 15-37 U/L Low AST 14 LAB L501.4305 45-117 U/L Low ALK P 40 LAB L501.4405 13-56 U/L Normal ALT 21 LAB L501.4600 0.20-1 mg/dL Normal .00 T BILI 0.30 LAB L501.5300 136-14 mmol/L Normal 5 NA 141 LAB L501.5600 3.5-5. mmol/L Normal 1 K 4.3 LAB L501.5900 98-107 mmol/L High CL 110 LAB L501.6100 21.0-3 mmol/L Normal 2.0 CO2 25.0 LAB L501.6200 5-15 Normal GAP 6 Performed By: #### L500.4050 #### [facility] [address] [place], [address] CBC W/DIFF, AUTOMATED Collected: 08/15/2018 Status: F Source: SECOR 12:51 PM [facility] REPOSITORY Order Comment: Reason for Laboratory Test . TYPE CODE TESTS RESULT OUT OF RANGE REFERENCE UNITS LAB L100.1000 4.4-11.0 K/mm3 Normal WBC 5.0 LAB L100.1200 4.2-5.4 M/mm3 Low RBC 3.90 LAB L100.1300 12.0-15.0 g/dl Low HGB 11.7 LAB L100.1400 37-47 % Normal HCT 38.0 LAB L100.1500 81-99 fL Normal MCV 97.4 LAB L100.1600 27.0-32.0 pg Normal MCH 30.0 LAB L100.1700 32-36 g/gl Low MCHC 30.8 LAB L100.1810 11.6-14.6 % High RDW CV 15.5 LAB L100.1820 35.1-43.9 fl High RDW SD 54.3 LAB L100.1900 150-450 K/mm3 Normal PLT 264 LAB L100.2000 6.2-12.0 fl Normal MPV 8.9 LAB L100.2100 47-70 % Normal NEUT% 68.0 LAB L100.2200 19-41 % Low LY% 14.5 LAB L100.2300 0-10 % High MONO% 14.7 LAB L100.2400 0-5 % Normal EO% 0.6 LAB L100.2500 0-1 % Normal BASO% 0.4 LAB L100.2550 0.0-0.9 % High IM GRAN % 1.800 Result Comment: IG% - Immature Granulocytes (promyelocytes, myelocytes and metamyelocytes) > 1% indicates that a LEFT SHIFT is Present. LAB L100.2620 2.0-7.7 X10 3/uL Normal Absolute Neut 3.4 LAB L100.2720 0.83-4.51 X10 3/ul Low Absolute Lymph 0.72 Performed By: #### L100.0100 #### [facility] [address] [facility] [place], [place], [address] ONCOLOGY VISIT REPORT Observed: 08/06/2018 Status: F Source: SECOR 10:01 AM [facility] REPOSITORY [facility] [address] [place] [address] OFFICE VISIT Date of Service: 08/06/18 0933 MR#: [id number] Acct: [id number] Name: LINDSAY ANTUNEZ Rep #: [id number] : 1965 From: Carolina Pak MD Age/Sex: 53/F Location: ONC Status: Signed - Problem List (1) Primary cancer of left female breast Status: Chronic (2) Regional lymph node metastasis present Status: Chronic (3) Bone metastases Status: Chronic (4) Brain metastases Status: Chronic (5) Anemia Status: Chronic (6) Fatigue Status: Chronic (7) Anorexia Status: Chronic - Date of Service Date of Service:: 08/06/18 - Chief Complaint Breast cancer on treatment - History of Present Illness Patient is a 52-year-old female perimenopausal who never had screening mammographies and became aware of a painless lump in the left breast and a second lump in the left axilla in August 2017. She did not seek any medical care until October 09, 2017 when she developed chest pain and dyspnea. She was seen in [facility] emergency room, diagnosed and treated for pneumonia and referred to surgical consultation when the breast mass was noted on exam. Mammography and ultrasound examination confirmed the palpable abnormalities. On October 12, 2017 she underwent biopsies from the left breast mass and the left axilla that confirmed an invasive lobular carcinoma nuclear grade 3 ER negative, DC negative, HER-2 overexpressed 3+. On October [address] scan of the chest that showed emphysematous changes and diffuse bony lytic lesions throughout the thoracic and lumbar vertebrae and lower cervical segments, lytic lesions in humeral heads bilaterally, sternum, clavicles, left scapula and several ribs bilaterally. CT scan of the abdomen and pelvis showed an indeterminate lesion too small to characterize in the liver but no other visceral disease, widespread bony metastatic disease was again noted. A bone scan October 2017 initial staging showed diffuse skeletal metastatic disease. A bone biopsy October 27, 2017 confirmed metastatic cancer of breast origin. Brain MRI showed small multiple metastatic lesions one in the posterior right internal capsule, multiple bilateral small cerebellar metastases. CA 27-29 not elevated at diagnosis and therefore will not aid in follow-up. Her family history is notable for 2 maternal aunts with breast cancers but no first-degree relatives was breast cancer Treatment: Focal radiation therapy to the sites of disease in the STATE PILOT at [facility] 10/2017 Whole brain radiation therapy 3000 cGy of 6 MV photons in 10 fractions 02/28/18- 03/13/18. Systemic therapy was held during whole brain radiation. Ojpujabapy-Srpyzqurahf-Ydrvnzpa 11/2017-03/2018 (6 cycles) : Excess toxicity Abraxane Herceptin : May 07/2018-August 06, 2018: Stable disease but patient developed STATE PILOT progression - Past Medical/Social History Past Medical History Past Medical History: Pneumonia Cancer: Breast cancer Other Cancer History: Radiation to brain Social History Social History: No changes Smoking Status Former smoker Review of Systems Constitutional:: Reports: Fatigue - At baseline, able to do ADL, Weight gain - Since she started steroids, Appetite change. Denies: Fever, Sweats, Weight loss, Chills Cardiovascular:: Reports: Dyspnea on exertion. Denies: Chest pain, Palpitations, Orthopnea, PND, Shortness of breath Respiratory: Reports: Shortness of breath upon exertion. Denies: Cough, Hemoptysis, Shortness of Breath, Wheezing Gastrointestinal:: Denies: Abdominal pain, Nausea, Vomiting, Diarrhea, Constipation, Hematochezia Genitourinary: Denies: Dysuria, Hematuria, 15, Flank pain Musculoskeletal:: Denies: Back pain, Myalgia, Arthralgia Skin: Reports: Lesions - Chronic benign lesions. Denies: Rash, Skin Changes, Wounds Neurological:: Denies: Headache, Dizziness, Visual changes, Tinnitus, Hearing loss Psychiatric: Denies: Anxiety, Depression, Homicidal Ideations, Suicidal Ideations Vital Signs Height 5 ft 2 in Weight: 67.404 kg - Physical Exam General: Alert, Oriented x3, No apparent distress, - - ECOG 1 Cushingoid HEENT: Atraumatic, PERRLA, EOMI, Normocephalic Oropharynx:: Dry mucosa Neck:: Supple, Trachea midline, - - Port okay. Negative for: JVD, bilateral Cardiac:: Regular rate, Regular rhythm, Normal S1, Normal S2. Negative for: Murmur Lungs: Clear to auscultation, Excusion symmetrical. Negative for: Rhonchi, Wheezes Abdomen:: Soft, Non-tender, Non-distended. Negative for: Hepatosplenomegaly Extremities:: Negative for: Cyanosis, Edema Neurological: Neuro grossly intact Skin:: Lesions - Multiple cutaneous nodules, chronic, unchanged. Negative for: Rash, Petechiae, Ecchymosis Psychiatric:: Appropriate affect, Euthymic Lymphatics:: Negative for: Cervical lymphadenopathy, Supraclavicular lymphadenopathy, Axillary lymphadenopathy Laboratory Data: Reviewed in EMR CBC, CMP Diagnostic Data: CT scan chest and abdomen and bone scan July 2018 shows stable disease outside the STATE PILOT. Brain MRI June 2018 shows progression within the STATE PILOT Assessment and Plan Assessment: 53-year-old female, perimenopausal at diagnosis with stage IV invasive lobular carcinoma of the left breast (T2, N3, M1) with metastases to left axillary, left supraclavicular and left cervical lymph nodes in addition to widespread metastatic disease to bone , an indeterminate lesion in the liver too small to characterize, and multiple bilateral brain metastases . Disease is ER negative, DC negative, HER-2 overexpressed. 1-Treated with focal radiation therapy to the brain at [facility] October 2017 then whole brain radiation due to STATE PILOT recurrence February 2018. By June 2018 she has evidence for extensive relapse in the brain. 2-Systemic combination of Pertuzumab, trastuzumab, and Taxotere received total 6 cycles between November - March 2018 with temporary interruption to allow brain radiation. Anemia and GI toxicity appeared to be the main side effects experienced. A bone scan in April 2018 did not report new bony lesions but continued demonstration of diffuse skeletal metastatic disease more confluent. Changed to second line treatment with weekly trastuzumab Abraxane with better tolerance. Imaging July 2018 shows stable disease. Comorbid conditions COPD, active smoker, poor dentition. Plan; #1 Concluded focal brain radiation for metastatic disease in the STATE PILOT at [facility] 10/2017 then whole brain radiation due to STATE PILOT recurrence in February 2018. However, by June 2018 with STATE PILOT recurrence prognosis is grave, is seeing Dr. Schroeder in regards to further management. A repeat whole brain radiation may offer her a very modest survival benefit but with increased STATE PILOT toxicities. #2 For systemic therapy I advised change to third line with lapatinib (1250 mg daily continuously) and Xeloda (1500 mg twice daily 2 weeks on then 1 week rest) due to probable better STATE PILOT penetration in view of progression of her disease in the brain in an attempt to hold off repeat whole brain radiation if possible. #3 Pain management consulted to optimize pain control. #4 Continue bisphosphonate therapy for metastatic bone disease every 3 months in addition to calcium and vitamin D supplement #5 Anemia partly due to metastatic disease to bone marrow and suppression by systemic chemotherapy. No evidence for iron or B12 deficiency found. #6 Echo (/3M of Rx) last was July 25, 2018 showed preserved EF. #7 CA-27-29 not elevated at diagnosis and therefore not helpful and follow-up of disease course. Patient was seen with her , impression and plan discussed. Medications: Prescriptions This Visit Medication Instructions Recorded Primary Care Provider: No Primary Care Phys Referring Provider: Carolina Pak MD 08/06/18 1001 <Electronically signed by Carolina Pak MD> Date Carolina Dent Signature: Date (if applicable) CC: Kev Schroeder DO CBC W/DIFF, AUTOMATED Collected: 08/06/2018 Status: C Source: [place] 9:20 AM [facility] REPOSITORY TYPE CODE TESTS RESULT OUT OF RANGE REFERENCE UNITS LAB L100.1000 4.4-11.0 K/mm3 Normal WBC 10.3 LAB L100.1200 4.2-5.4 M/mm3 Low RBC 3.98 LAB L100.1300 12.0-15.0 g/dl Normal HGB 12.0 LAB L100.1400 37-47 % Normal HCT 38.4 LAB L100.1500 81-99 fL Normal MCV 96.5 LAB L100.1600 27.0-32.0 pg Normal MCH 30.2 LAB L100.1700 32-36 g/gl Low MCHC 31.3 LAB L100.1810 11.6-14.6 % Normal RDW CV 14.5 LAB L100.1820 35.1-43.9 fl High RDW SD 50.5 LAB L100.1900 150-450 K/mm3 Normal PLT 301 LAB L100.2000 6.2-12.0 fl Normal MPV 9.4 LAB L100.3100 MANUAL DIFF Normal CELLS COUNTED 100 LAB L100.3200 47-70 % High 76 SEGS LAB L100.3300 0-5 % 1 Normal BAND LAB L100.3800 19-41 % Low 18 LYMPH LAB L100.3900 0-10 % 5 Normal MONOCYTE LAB L100.5500 ADEQ Normal PLT EST ADEQUATE LAB L100.5650 Normal PLT MORPH LARGE LAB L100.2620 2.0-7.7 X10 3/uL High Absolute Neut 7.9 LAB L100.2720 0.83-4.51 X10 3/ul Normal Absolute Lymph 1.85 LAB L100.9900 Normal PATH REV Reviewed Result Comment: Neutrophilic left shift. Clinical correlation necessary. Chalo Chappell M.D. 08/07/18 Pathologist comment added AMENDED REPORT 08/07/18 0827 PATH REV previously reported as: January Performed By: #### L100.0100 #### [facility] [address] [place], [address] CHEST WITH CONTRAST Observed: 08/02/2018 Status: F Source: SECOR 1:02 PM [facility] REPOSITORY [facility] Imaging Services [address] [place] [address] Chest WITH Contrast MR#: [id number] Acct: [id number] Name: LINDSAY ANTUNEZ Rep #: [id number] : 1965 F 53 From: Monisha Stringer MD PCP: En Granados III, MD Status: REG CLI Study: Chest WITH Contrast Date of Exam: 08/02/18 Exam# [id number] Ordering Dr: Carolina Pak MD STUDY: CT CHEST WITH CONTRAST REASON FOR EXAM: Female, 53 years old. Restaging disease progression RADIATION DOSAGE (If Supplied By Facility): CTDIvol = ( 9.35 ) mGy, DLP = ( 694.67 ) mGycm TECHNIQUE: Transaxial imaging was performed following intravenous administration of 100 ml of Isovue 300 contrast material. Multiplanar coronal and sagittal images were reformatted. Individualized dose optimization techniques were used for this CT. COMPARISON: October 12, 2017 CT chest FINDINGS: There is a persistent pattern of emphysematous change within the lungs especially in the lung apices and in the bilateral lower lobes. There is no visualized acute focal consolidation pleural effusion pulmonary edema or pneumothorax or evidence of suspicious pulmonary nodules. There is no demonstrated pleural abnormality. There is mild cardiac enlargement. Normal mediastinum. Normal hilar regions. Normal enhanced pulmonary arteries. Normal aorta arch and descending thoracic aorta. There is a widespread appearance of sclerotic and lytic lesions throughout the visualized ribs and thoracic spine. There is wedging of the T11 and T12 vertebral bodies. The liver appears fairly homogeneous without visualized mass. There is a left to midline upper abdomen subcutaneous mass image #106 measuring 1.9 x 2.2 cm. Within the right medial soft tissues there is a mass that measures 1.1 x 1.9 cm. The breast tissue appears fairly symmetric. There is a right-sided Port-A-Cath demonstrated. There is a fatty infiltrated lymph node on the right. CT/Chest WITH Contrast IMPRESSION: Multifocal advanced bony metastasis. Right-sided Port-A-Cath No visualized evidence of pulmonary metastasis. Advanced pulmonary emphysema. Area of nonspecific soft tissue masses which may represent sebaceous cyst stable when compared to the prior study. Electronically Signed: Monisha Stringer MD at 20:00 EST Tel , Service support , CC: En Granados III, MD; Carolian Pak MD Wheel Truer: Signed ABDOMEN WITH IV Observed: 08/02/2018 Status: F Source: SECOR CONTRAST 1:02 PM [facility] REPOSIT[facility] Imaging Services [address] [place] [address] Abdomen WITH IV Contrast MR#: [id number] Acct: [id number] Name: LINDSAY ANTUNEZ Rep #: [id number] : 1965 F 53 From: Ananth Murillo MD PCP: En Granados III, MD Status: REG CLI Study: Abdomen WITH IV Contrast Date of Exam: 08/02/18 Exam# [id number] Ordering Dr: Carolina Pak MD STUDY: CT ABDOMEN WITH CONTRAST REASON FOR EXAM: Female, 53 years old. History of breast cancer metastases. Restaging disease progression. RADIATION DOSAGE (If Supplied By Facility): CTDIvol = ( 9.35 ) mGy, DLP = ( 694.67 ) mGycm TECHNIQUE: Transaxial images were obtained post I.V. administration of 100 ml of Isovue 300 contrast, and without oral contrast. Sagittal and coronal images were reconstructed. Individualized dose optimization techniques were used for this CT. COMPARISON: CT scan abdomen 04/29/2018. FINDINGS: There are emphysematous changes in the visualized posterior lower lung benavidez. The visualized portions of the heart are within normal limits. Normal liver. Normal gallbladder and extrahepatic biliary system. Normal spleen. Normal pancreas. Normal bilateral adrenal glands. Normal right kidney. Normal left kidney. There is a small hiatal hernia. Normal small intestine. Normal colon. The appendix is visualized on axial images 62-73 and it appears normal.. There is mild atherosclerotic calcification of the abdominal aorta with elongation and tortuosity, but without a demonstrated aneurysm. Normal inferior vena cava. Normal retroperitoneum. There is seen on axial images 26-30, there is a 1.3 x 2.2 cm nodule in the left anterior skin and subcutaneous fat of the upper abdomen, not significantly changed in size from previous study, by my measurement. There is a small umbilical hernia containing fat, but no bowel. There are extensive osteolytic and osteoblastic metastatic lesions in the visualized pelvis, ribs, and spine, which are not significantly changed. CT/Abdomen WITH IV Contrast IMPRESSION: Redemonstration of a left anterior abdominal skin nodule, not significantly different from previous study. This is of uncertain significance. No other evidence for soft tissue masses or lymphadenopathy. Atherosclerosis. Extensive osteolytic and osteoblastic metastatic disease, with no definite change. Electronically Signed: Ananth Murillo MD at 5:07 EST , Service support , CC: En Granados III, MD; Carolina Pak MD Wheel Truer: Signed BONE SCAN WHOLE Observed: 07/31/2018 Status: F Source: SECOR BODY 8:44 AM [facility] REPOSIT[facility] Imaging Services [address] [place] [address] Bone Scan Whole Body MR#: [id number] Acct: [id number] Name: LINDSAY ANTUNEZ Rep #: [id number] : 1965 F 53 From: Juan Blount DO PCP: En Granados III, MD Status: REG CLI Study: Bone Scan Whole Body Date of Exam: 07/31/18 Exam# [id number] Ordering Dr: Carolina Pak MD CLINICAL: 53-year-old female with history of carcinoma of the breast. WHOLE BODY 99m Tc MDP RADIONUCLIDE BONE SCINTIGRAPHY COMPARISON: Previous whole body bone scintigraphy study dated 04/26/2018 FINDINGS: Following the intravenous administration of 22.7 mCi of 99m Tc MDP, whole body bone images reveal: 1. Innumerable foci of increased radiopharmaceutical concentration persist in the appendicular and axial skeletal structures with no definitive interval change in the overall number and intensity of uptake, compared to the previous examination dated 04/26/2018. 2. Facilitated tracer concentration is presently visualized in the acromioclavicular compartments of both shoulders, the left wrist, right and left elbows. 3. The remaining skeletal structures are scintigraphically unremarkable with normal-appearing renal images and urinary bladder activity identified. NM/Bone Scan Whole Body IMPRESSION: 1. The increase in radiopharmaceutical concentration redemonstrated throughout the visualized appendicular and axial skeleton structures remains consistent with osteoblastic turnover associated with disseminated skeletal metastatic disease. 2. Facilitated uptake presently defined in the bilateral shoulders, elbows bilaterally and left wrist instruments were with degenerative arthritis. 3. Overall compared to the previous whole body bone scintigraphy study dated 04/26/2018, there is persistently visualized multifocal osseous metastatic disease, unchanged from the previous examination. Electronically Signed: Juan Blount DO at 10:05 EST Tel , Service support , CC: En Granados III, MD; Carolina Pak MD Wheel Truer: Signed ONCOLOGY VISIT REPORT Observed: 07/30/2018 Status: F Source: SECOR 9:52 AM [facility] REPOSITORY [facility] [address] [place] [id number] OFFICE VISIT Date of Service: 07/30/18909 MR#: [id number] Acct: [id number] Name: LINDSAY ANTUNEZ Rep #: [id number] : 1965 From: Carolina Pak MD Age/Sex: 53/F Location: OMD Status: Signed - Problem List (1) Primary cancer of left female breast Status: Chronic (2) Regional lymph node metastasis present Status: Chronic (3) Bone metastases Status: Chronic (4) Brain metastases Status: Chronic (5) Anemia Status: Chronic (6) Fatigue Status: Chronic (7) Anorexia Status: Chronic - Date of Service Date of Service:: 07/30/18 - Chief Complaint Breast cancer on treatment - History of Present Illness Patient is a 52-year-old female perimenopausal who never had screening mammographies and became aware of a painless lump in the left breast and a second lump in the left axilla in August 2017. She did not seek any medical care until October 09, 2017 when she developed chest pain and dyspnea. She was seen in [facility] emergency room, diagnosed and treated for pneumonia and referred to surgical consultation when the breast mass was noted on exam. Mammography and ultrasound examination confirmed the palpable abnormalities. On October 12, 2017 she underwent biopsies from the left breast mass and the left axilla that confirmed an invasive lobular carcinoma nuclear grade 3 ER negative, DC negative, HER-2 overexpressed 3+. On October [address] scan of the chest that showed emphysematous changes and diffuse bony lytic lesions throughout the thoracic and lumbar vertebrae and lower cervical segments, lytic lesions in humeral heads bilaterally, sternum, clavicles, left scapula and several ribs bilaterally. CT scan of the abdomen and pelvis showed an indeterminate lesion too small to characterize in the liver but no other visceral disease, widespread bony metastatic disease was again noted. A bone scan October 2017 initial staging showed diffuse skeletal metastatic disease. A bone biopsy October 27, 2017 confirmed metastatic cancer of breast origin. Brain MRI showed small multiple metastatic lesions one in the posterior right internal capsule, multiple bilateral small cerebellar metastases. CA 27-29 not elevated at diagnosis and therefore will not aid in follow-up. Her family history is notable for 2 maternal aunts with breast cancers but no first-degree relatives was breast cancer Treatment: Focal radiation therapy to the sites of disease in the STATE PILOT at [facility] 10/2017 Whole brain radiation therapy 3000 cGy of 6 MV photons in 10 fractions 02/28/18- 03/13/18. Systemic therapy was held during whole brain radiation. Chkpcegrir-Mwhcqggmcxs-Drbzngmd 11/2017-03/2018 (6 cycles) : Excess toxicity Abraxane Herceptin : May 07/2018- - Past Medical/Social History Past Medical History Past Medical History: Pneumonia Cancer: Breast cancer Other Cancer History: Radiation to brain Social History Social History: No changes Smoking Status Former smoker Review of Systems Constitutional:: Reports: Weakness, Fatigue - Able to do ADL with minimal assistance from her . Denies: Fever, Sweats, Weight loss, Appetite change, Chills Cardiovascular:: Reports: Dyspnea on exertion. Denies: Chest pain, Palpitations, Orthopnea, PND, Shortness of breath Respiratory: Reports: Shortness of breath upon exertion. Denies: Cough, Hemoptysis, Shortness of Breath, Wheezing Gastrointestinal:: Denies: Abdominal pain, Nausea, Vomiting, Diarrhea, Constipation, Hematochezia Genitourinary: Denies: Dysuria, Hematuria, 15, Flank pain Musculoskeletal:: Denies: Back pain, Myalgia, Arthralgia Skin: Denies: Rash, Skin Changes, Wounds Neurological:: Reports: Headache - Infrequent, every few days, Numbness - Feet. Denies: Dizziness, Visual changes, Tinnitus, Hearing loss Psychiatric: Denies: Anxiety, Depression, Homicidal Ideations, Suicidal Ideations Vital Signs Height 5 ft 2 in Weight: 66.088 kg - Physical Exam General: Alert, Oriented x3, No apparent distress, - - ECOG 1-2 HEENT: Atraumatic, PERRLA, EOMI, Normocephalic Oropharynx:: Dry mucosa Neck:: Supple, Trachea midline, - - Port okay. Negative for: JVD, bilateral Cardiac:: Regular rate, Regular rhythm, Normal S1, Normal S2. Negative for: Murmur Lungs: Clear to auscultation, Diminished, Excusion symmetrical. Negative for: Rhonchi, Wheezes Abdomen:: Soft, Non-tender, Non-distended. Negative for: Hepatosplenomegaly Extremities:: Negative for: Cyanosis, Edema Neurological: Neuro grossly intact Skin:: Negative for: Lesions, Rash, Petechiae, Ecchymosis Psychiatric:: Appropriate affect, Euthymic Lymphatics:: Negative for: Cervical lymphadenopathy, Supraclavicular lymphadenopathy Laboratory Data: CBC reviewed in EMR Diagnostic Data: Brain MRI July 19, 2018: IMPRESSION: Marked progression of brain metastatic disease, innumerable in the cerebellar hemispheres and additional brain metastatic mass lesions in both cerebral hemispheres, the left medial cerebral peduncle and in the right upper pontine tegmentum junction with the substantia nigra behind the right cerebral peduncle. Echo July 25, 2018, ejection fraction preserved 65% Assessment and Plan Assessment: 53-year-old female, perimenopausal at diagnosis with stage IV invasive lobular carcinoma of the left breast (T2, N3, M1) with metastases to left axillary, left supraclavicular and left cervical lymph nodes in addition to widespread metastatic disease to bone , an indeterminate lesion in the liver too small to characterize, and multiple bilateral brain metastases . Disease is ER negative, DC negative, HER-2 overexpressed. 1-Treated with focal radiation therapy to the brain at [facility] October 2017 then whole brain radiation due to STATE PILOT recurrence February 2018. By June 2018 she has evidence for extensive relapse in the brain. 2-Systemic combination of Pertuzumab, trastuzumab, and Taxotere received total 6 cycles between November - March 2018 with temporary interruption to allow brain radiation. Anemia and GI toxicity appeared to be the main side effects experienced. A bone scan in April 2018 did not report new bony lesions but continued demonstration of diffuse skeletal metastatic disease more confluent. Changed to second line treatment with weekly trastuzumab Abraxane with better tolerance. Comorbid conditions COPD, active smoker, poor dentition. Plan; #1 Concluded focal brain radiation for metastatic disease in the STATE PILOT at [facility] 10/2017 then whole brain radiation due to STATE PILOT recurrence in February 2018. However, by June 2018 with STATE PILOT recurrence prognosis is grave, is seeing Dr. Schroeder in regards to further management. A repeat whole brain radiation may offer her a very modest survival benefit but with increased STATE PILOT toxicities. #2 She has extensive widespread bony metastatic disease, that in the spine does not impinge on the spinal cord at presentation, will reassess disease status outside the STATE PILOT with bone scan and CT scan of the chest and abdomen. #3 Pain management consulted to optimize pain control. #4 Systemic therapy, continue with Abraxane and Herceptin as of May 07, 2018 we will re-evaluate after imaging #5 Continue bisphosphonate therapy for metastatic bone disease every 3 months in addition to calcium and vitamin D supplement #6 Anemia partly due to metastatic disease to bone marrow and suppression by systemic chemotherapy. No evidence for iron or B12 deficiency found. #7 Echo (/3M of Rx) last was July 25, 2018 showed preserved EF. #8 CA-27-29 not elevated at diagnosis and therefore not helpful and follow-up of disease course. Patient was seen with her , impression and plan discussed. Medications: Prescriptions This Visit Medication Instructions Recorded Lidocaine/Prilocaine 30 gm TP DAILY PRN PRN #1 cream..g. 10/19/17 Primary Care Provider: No Primary Care Phys Referring Provider: Carolina Pak MD 07/30/18 0952 <Electronically signed by Carolina Pak MD> Date Carolina Pak MD Cosigner Signature: Date (if applicable) CC: CBC W/DIFF, AUTOMATED Collected: 07/30/2018 Status: F Source: [place] 9:09 AM [facility] REPOSITORY TYPE CODE TESTS RESULT OUT OF RANGE REFERENCE UNITS LAB L100.1000 4.4-11.0 K/mm3 Normal WBC 5.6 LAB L100.1200 4.2-5.4 M/mm3 Low RBC 4.05 LAB L100.1300 12.0-15.0 g/dl Normal HGB 12.2 LAB L100.1400 37-47 % Normal HCT 39.4 LAB L100.1500 81-99 fL Normal MCV 97.3 LAB L100.1600 27.0-32.0 pg Normal MCH 30.1 LAB L100.1700 32-36 g/gl Low MCHC 31.0 LAB L100.1810 11.6-14.6 % High RDW CV 14.9 LAB L100.1820 35.1-43.9 fl High RDW SD 52.6 LAB L100.1900 150-450 K/mm3 Normal PLT 262 LAB L100.2000 6.2-12.0 fl Normal MPV 8.8 LAB L100.2100 47-70 % Normal NEUT% 56.7 LAB L100.2200 19-41 % Low LY% 18.9 LAB L100.2300 0-10 % High MONO% 21.4 LAB L100.2400 0-5 % Normal EO% 0.7 LAB L100.2500 0-1 % Normal BASO% 0.5 LAB L100.2550 0.0-0.9 % High IM GRAN % 1.800 Result Comment: IG% - Immature Granulocytes (promyelocytes, myelocytes and metamyelocytes) > 1% indicates that a LEFT SHIFT is Present. LAB L100.2620 2.0-7.7 X10 3/uL Normal Absolute Neut 3.1 LAB L100.2720 0.83-4.51 X10 3/ul Normal Absolute Lymph 1.05 Performed By: #### L100.0100 #### [facility] [address] [place], [address] COMPREHENSIVE METABOLIC Collected: 07/30/2018 Status: F Source: [facility] 9:08 AM [facility] REPOSITORY TYPE CODE TESTS RESULT OUT OF RANGE REFERENCE UNITS LAB L501.0100 74-106 mg/dL High GLU 109 Result Comment: Fasting Glucose result from 100 to 125 mg/dL suggests IMPAIRED HOMEOSTASIS per A.D.A. criteria. Please note revised GLUCOSE reference range effective 2017. LAB L501.1000 7-18 mg/dL Low BUN 3 LAB L501.1100 0.55-1.02 mg/dL Normal CREAT,SERUM 0.77 Result Comment: The validity of the calculated GFR AND GFRAA in patients over 70 years has not been determined. Clinical correlation is essential. LAB L501.1110 >60 mL/min Normal EST GFR 84 Result Comment: Non- GFR Calc LAB L501.1115 >60 mL/min Normal EST GFR - AA 102 Result Comment: GFR Calc LAB L501.1255 ml/min Normal Estimated CRCL 68.36 LAB L501.1300 10-20 RATIO Low BUN/CRE 3.9 LAB L501.1500 6.4-8. g/dL Low 2 T PROT 6.1 LAB L501.1800 3.2-5. g/dL Normal 0 ALB 3.3 LAB L501.1950 2.2-4. g/dL Normal 2 GLOB 2.8 LAB L501.2000 0.9-2. RATIO Normal 4 A/G 1.2 LAB L501.2200 8.5-10 mg/dL Normal .1 CA 8.5 LAB L501.4100 15-37 U/L Low AST 10 LAB L501.4305 45-117 U/L Low ALK P 41 LAB L501.4405 13-56 U/L Normal ALT 18 LAB L501.4600 0.20-1 mg/dL Normal .00 T BILI 0.30 LAB L501.5300 136-14 mmol/L Normal 5 NA 143 LAB L501.5600 3.5-5. mmol/L Normal 1 K 3.9 LAB L501.5900 98-107 mmol/L Normal CL 106 LAB L501.6100 21.0-3 mmol/L Normal 2.0 CO2 25.0 LAB L501.6200 5-15 Normal GAP 12 Performed By: #### L500.4050 #### [facility] [address] [place], [address] ONCOLOGY FOLLOW-UP Observed: 07/26/2018 Status: F Source: SECOR VISIT 11:12 AM [facility] REPOSITORY [facility] Medical Records Department [address] [place] [address] Oncology Follow-Up Visit 07/26/18 1055 MR#: [id number] Acct: [id number] Name: LINDSAY ANTUNEZ Rep #: [id number] : 1965 53 From: Kev Schroeder DO PCP: Care Physician, No Primary Status: REG RCR Y Location: ONC Date of Service: 07/26/18 Last Clinic Visit: 05/15/18 Diagnosis: Lindsay Antunez is a 52-year-old female diagnosed with widely 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 From 11/14/17 - 11/16/17 she received FSRT consisting of 2400 cGy delivered in 3 fractions to the 10 STATE PILOT lesions noted on the MRI. Repeat MRI brain 01/29/18 showed evidence for multifocal disease progression within the STATE PILOT. Plan was made to complete whole brain radiation therapy as further focal therapy was not felt to be an option given the numerous sites of disease in the brain. From 02/28/18 - 03/13/18 she received 3000 cGy in 10 fractions to the whole brain. History of Present Illness: 10/09/2017: Patient was seen in the emergency room due to left shoulder pain radiating to the right shoulder with right-sided chest pain as well as left nipple retraction with left breast discharge. 10/10/2017: Bilateral diagnostic mammogram was performed and demonstrated a 2.1 x 2.4 cm spiculated mass in the retroareolar region of the left breast which corresponds to the palpable abnormality, there are diffuse microcalcifications seen within it, there is also evidence of left axillary lymphadenopathy, no other significant abnormalities were identified. BI-RADS 5. 10/12/2017: CT chest was completed and showed evidence for diffuse lytic lesions seen throughout the thoracic and lumbar vertebrae, lucent lesions are also identified in the lower cervical segment as well as the humeral heads bilaterally. There is evidence of lytic lesions noted in the sternum as well as along the medial aspect of the clavicles as well as the left scapula. Also suspected or lytic lesions that are very small and several bilateral ribs. A left breast mass is identified as well as several enlarged left axillary lymph nodes. There is also a few scattered subcutaneous tissue nodules noted. 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 10/20/2017: Patient completed brain MRI with contrast which demonstrated evidence for 5 lesions consistent with metastatic disease for lesion is located within the cerebellum and the fifth lesion located in the posterior internal capsule on the right side. There is minimal associated edema. There is also heterogeneous low signal within the calvarium present which may represent an infiltrative bone marrow process though no focal calvarial lesions are noted, upper cervical spine shows multiple areas of osseous enhancement consistent with metastatic disease. 10/20/2017: MRI of the cervical thoracic and lumbar spine was completed which demonstrated evidence for diffuse osseous metastatic disease with a lytic appearance, no pathologic compression fractures or spinal cord compression is identified, no paraspinal masses are identified, there are no intra-canalicular lesions seen. 10/25/2017: CT abdomen and pelvis with contrast was performed which demonstrated evidence for diffuse osseous disease within the thoracic and lumbar spine as well as the sacrum and pelvis and both proximal femora. There is a single 7 mm hypodense lesion in the right liver, but no evidence for other sites of metastatic disease. 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 From 11/14/17 - 11/16/17: Patient received FSRT consisting of 2400 cGy delivered in 3 fractions to the 10 STATE PILOT lesions noted on the MRI. 11/29/17: Initiated Pertuzumab/Trastuzumab/Taxotere 01/29/2018: MRI brain was completed which demonstrated evidence for increasing number of metastatic lesions when compared to the prior study. 01/29/2018: Chest x-ray of the lumbar and thoracic spine was completed. There is diffuse osseous metastatic disease and chronic appearing compression fractures of T11, T12, and L1. 02/09/2018: Patient was evaluated by [facility] in follow- up after completing brain FSRT. Upon review, the previously treated lesions were stable to improved but there were multiple new punctate lesions noted especially in the cerebellum. Recommendation was to complete whole brain radiation therapy. From 02/28/18 03/13/18: Received 3000 cGy in 10 fractions to the whole brain with concurrent memantine. 04/23/2018: MRI brain was performed which demonstrated mild chronic periventricular white matter and pontine ischemic changes without evidence for acute infarct. Persistent small cerebellar metastasis however these demonstrate interval improvement in the number of metastatic lesions since the previous exam. 04/26/2018: Bone scan demonstrated multifocal increased radiopharmaceutical concentration remaining evident throughout the appendicular and axial skeletal structures. There is an increase in tracer concentration currently defined in the bilateral elbow and wrist articulations. 04/29/2018: CT abdomen and pelvis with contrast was performed which demonstrated diffuse wall thickening and inflammation of the terminal ileum suggesting terminal ileitis, enlargement of left upper abdominal wall soft tissue nodule, diffuse lytic and sclerotic lesions throughout the bones consistent with metastatic disease, likely due to timing of the IV bolus the previously noted nodules in the liver are difficult to visualize on this exam. 04/29/18-05/01/18: Admitted with intractable nausea and vomiting with diarrhea and found to have findings consistent with sepsis. Patient was treated with IV fluids, antibiotics, pain medications, and antiemetics and was discharged in stable condition. 05/07/18: Due to increase toxicity and uncertainty to whether she has progressive disease treatment was switched to second line therapy, Abraxane/Herceptin. 07/19/2018: MRI brain was performed which demonstrated marked progression of brain metastatic disease with innumerable lesions in the cerebral Freddie hemispheres and additional brain metastatic lesions in both cerebral hemispheres, the left medial cerebral peduncle and the right upper pontine tegmentum junction. Radiation Treatment History: 1) From 11/14/17 - 11/16/17: Patient received FSRT consisting of 2400 cGy delivered in 3 fractions to the 10 STATE PILOT lesions noted on the MRI. 2) From 02/28/18 - 03/13/18: Received 3000 cGy in 10 fractions to the whole brain with concurrent memantine. Denies history of collagen vascular disease and denies having a pacemaker. Interval History: Patient returns for follow-up approximately 3.5 months after completing whole brain radiation therapy and to review recent MRI imaging. She reports doing fairly well over the last couple months. She has been receiving Abraxane/Herceptin 3 weeks on 1 week off and tolerating this well overall. She does report increase in fatigue over the last few weeks and has had nausea with vomiting for the last 2 days. The nausea has been intermittent over this time and she has been getting some food and liquids in. She has been taking Zofran for nausea control. She denies having any nausea today. She reports getting mild to moderate headaches about 1-2 times per week which is been ongoing for months or even years, she denies having any new change in the quality or severity of these headaches. She takes Tylenol for relief. She denies having any blurry vision or double vision. Upon standing she occasionally will have some lightheadedness but quickly regains her stability, she does have a mildly slowed gait and over long distances does display some instability but denies having any falls and does not use a cane or walker. She denies changes in cognition/memory, incoordination with arm or leg movements, seizures, focal weakness/numbness other than numbness in her bilateral toes likely related to chemotherapy. Her appetite remains relatively low but she denies having much weight loss. She does continue to have tiredness daily but completes all activities of daily living without difficulty. She has continued alopecia but denies having any scalp irritation. She denies any changes in hearing and denies dry mouth. She denies cough, shortness of breath, hemoptysis, or worsening bone pain. She is no longer taking Decadron and is taking memantine 5 mg twice daily as higher dose resulted in toxicity. She denies having any other problems or concerns at this time. I have reviewed the medical, surgical, and other pertinent history in details and have updated medication and allergy information in the electronic medical record. Review of Systems: A 12-point review of systems was completed and was negative except for what is noted in the HPI/Interval History and by the nurse. Height/Weight/BMI: Height: 5 ft 2 in Weight: 145.7 lbs Vital Signs Temperature 99.3 F H 07/26/18 09:52 Temperature Source Core 07/26/18 09:52 Pulse Rate 89 07/26/18 09:52 Respiratory Rate 16 07/26/18 09:52 Respiratory Pattern Normal 01/18/18 15:22 Physical Exam: ECO KARNOFSKY SCORE: 70% CONSTITUTIONAL: Well-developed, well-nourished, and in no apparent distress. HEENT: Mucous membranes mildly dry. No evidence of thrush or lesions within the visualized oropharynx or oral cavity. Complete alopecia, no scalp erythema. No trismus. Pupils are equal, round, and reactive to light and accommodation. Extraocular movements are intact. Sclerae are anicteric. NECK: Supple,with no thyromegaly, and non-tender. Trachea midline. No cervical or supraclavicular adenopathy noted. CARDIAC: Regular rate and rhythm. Normal S1, S2. No murmurs, rubs, or gallops. PULMONARY/CHEST: Lungs are clear to auscultation and percussion bilaterally. No wheezes, rhonchi, or crackles noted. No increased work of breathing. ABDOMINAL: Abdomen soft, non-tender, non-distended. No hepatomegaly. Normoactive bowel sounds in all four quadrants. No guarding, rebound. BACK: Straight and aligned. No CVA tenderness. Tenderness to palpation is noted in the axial skeleton involving the lumbar/sacral region as well as the lower thoracic region, otherwise nontender to palpation. EXTREMITIES: Full range of motion in all four extremities, with normal strength equally and symmetrically. No evidence of edema. No clubbing. NEUROLOGICAL EXAM: Alert and oriented x 3. Cranial nerves II through XII are grossly intact. No focal neurological deficit. Speech is fluent. There is no upper or lower extremity sensory deficit or motor deficit. Muscle strength is 5/5 in all muscle groups. Gait and posture are steady. No dysmetria. Imaging: As per HPI Reviewed the MRI brain completed 07/19/2018. 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 From 11/14/17 - 11/16/17 she received FSRT consisting of 2400 cGy delivered in 3 fractions to the 10 STATE PILOT lesions noted on the MRI. Repeat MRI brain 01/29/18 showed evidence for multifocal disease progression within the STATE PILOT. Plan was made to complete whole brain radiation therapy as further focal therapy was not felt to be an option given the numerous sites of disease in the brain. From 02/28/18 - 03/13/18 she received 3000 cGy in 10 fractions to the whole brain. I reviewed the imaging findings with the patient and her which demonstrate marked STATE PILOT progression especially within the cerebellum but also multifocally within the bilateral cerebral hemispheres. She does not appear to have any persistent radiation related toxicities at that than continued alopecia likely also related to chemotherapy. She is tolerating Abraxane/Herceptin well without difficulty. Plan: I had a detailed discussion with the patient and her regarding the imaging findings detailed on the new brain MRI from last week. Specifically, the study demonstrates evidence of multifocal numerous new brain metastases and very clear progression of brain metastases within the brain. I reviewed frankly that this is a very poor prognostic indicator and that there are likely few treatment options remaining. I did discuss that there is a possibility that whole brain reirradiation could be considered but that given the number of new lesions in such a short interval that stereotactic radiation would not be an option. I briefly discussed to the limited studies that have demonstrated repeat whole brain radiation therapy can be reasonable in some patients but that most patients have a limited life expectancy. She does have a very high performance status and breast cancer primary with HER- 2 positive receptor status which have all been shown to portend a longer survival after reirradiation making this potentially reasonable. However she does have a very short interval from previous radiation and it is unclear if she has any systemic disease progression at this time given that no imaging has been done since April 2018. If she has disease control extracranially and will likely remain on Abraxane/Herceptin then possibly reirradiation to the brain could be used as a last effort to control the STATE PILOT disease but if she has progression of extracranial disease and would be faced with switching to third line systemic therapy I would recommend pursuing hospice care. Briefly discussed the potential option for a targeted therapy that could penetrate the STATE PILOT and offer control without re-irradiation but I think it is a low likelihood that this is the case, I will plan to discuss with medical oncology to get their thoughts. Finally I reviewed the that reirradiation to any area carries higher risk for chronic and severe toxicities. I reviewed potential acute and chronic toxicities and these would include but are not limited to fatigue, alopecia, scalp irritation, changes in hearing, dry mouth, reduction in cognitive status including memory and thinking ability, radiation necrosis. Given the possible mild increase in symptoms we will prescribe Decadron 4 mg, she is already taking Prilosec for gastric prophylaxis. Plan is to get systemic imaging to assess extracranial disease status prior to making determination of management of the brain lesions, I will have her return to clinic following this imaging to come up with the treatment plan. She was instructed to call with any further questions or concerns in the interim. Kev Schroeder DO, MS Demurrage Agent, Department of Radiation Oncology [facility] 07/26/18 1112 <Electronically signed by Kev Schroeder DO> Date Kev Schroeder DO CC: Carolina Pak MD; Mar Medrano NP Signed ONC ECHOCARDIOGRAM Observed: 07/24/2018 Status: F Source: [place] COMPLETE 5:12 PM [facility] Cardiovascular Services [address] [place] [address] ONC Echo Complete 07/24/18 1400 MR#: [id number] Acct: [id number] Name: LINDSAY ANTUNEZ Dereck Rep #: [id number] : 1965 53 From: Amilcar Rees MD Attending Dr: Carolina Pak MD Status: REG CLI Ordering Dr: Carolina Pak MD Date: 07/24/18 Location: [facility] Sex: F C Admitted: Reason For Study: CARDIOTOXIC MEDS Procedure This was a 2D Doppler, Color Flow transthoracic echocardiogram. Myocardial strain analysis was performed in this exam to aid in the assessment of cardiac function. The exam was of adequate technical quality. Exam performed in department. Left Ventricle Normal LV size. Left ventricular systolic function is normal. The estimated ejection fraction is 65 %. The global longitudinal strain = -19 % (normal). Transmitral doppler flow suggestive of impaired relaxation of left ventricle. No regional wall motion abnormalities noted. Right Ventricle Normal RV size. Normal systolic function. Atria Normal left atrium. Normal right atrium. No doppler evidence for ASD. Mitral Valve There is no mitral annular calcification. Normal mitral valve. Trivial mitral valve insufficiency. Tricuspid Valve Normal tricuspid valve. Trivial tricuspid valve insufficiency. Aortic Valve Trisinus/trileaflet aortic valve. Normal aortic valve. Pulmonic Valve The pulmonic valve is not well visualized. Trivial pulmonic valve insufficiency. Great Vessels Normal sized aortic root. Pericardium/Pleural No pericardial effusion. MMode/2D Measurements AND Calculations LVIDd: 4.3 cm IVSd: 0.69 cm Ao root diam: 3.2 cm LVIDs: 3.0 cm LVPWd: 0.80 cm FS: 29.0 % LAV(MOD-bp): 35.6 ml LVAd ap4: 25.9 cm2 SV(MOD-sp4): 43.0 ml LAV(MOD-bp) Indexed: 22.7 ml/m2 EDV(MOD-sp4): 71.4 ml LAV(MOD-sp2): 34.4 ml EDV(sp4-el): 74.2 ml LAV(MOD-sp4): 31.6 ml LVAs ap4: 14.6 cm2 ESV(MOD-sp4): 28.4 ml ESV(sp4-el): 29.5 ml EF(MOD-sp4): 60.2 % EF(sp4-el): 60.2 % SV(sp4-el): 44.7 ml LA A4 area: 14.0 cm2 LA dimension(2D): 3.3 cm RA A4 area: 12.8 cm2 Time Measurements MV dec time: 0.30 sec Doppler Measurements AND Calculations MV E max [place]: 58.3 cm/sec Lat Peak E' [place]: 7.9 cm/sec Med Peak E' [place]: 4.1 cm/sec MV A max [place]: 67.2 cm/sec E/E' lat: 7.4 E/E' med: 14.1 MV E/A: 0.87 Ao V2 max: 123.0 cm/sec LV V1 max: 106.8 cm/sec Ao max P.1 mmHg LV V1 max P.6 mmHg Interpretation Summary Left ventricular systolic function is normal. The estimated ejection fraction is 65 %. The global longitudinal strain = -19 % (normal). Trivial mitral valve insufficiency. Trivial tricuspid valve insufficiency. Trivial pulmonic valve insufficiency. Transmitral doppler flow suggestive of impaired relaxation of left ventricle Ordering Physician: Carolina Pak Referring Physician: Carolina Pak Performed By: Cordelia Roberts, RDCS, RVT 07/24/181710 Date Amilcar Rees MD CC: No Primary Care Physician; Carolina Pak MD Date Dictated: 07/24/18 1400 Date Transcribed: 07/24/181710 Wheel Truer: Signed BRAIN W/WO CONTRAST Observed: 07/19/2018 Status: F Source: KRY[place] 9:39 AM [facility] Imaging Services [address] [place] [id number] Brain W/WO Contrast MR#: [id number] Acct: [id number] Name: HARMONYLINDSAY Dereck Rep #: [id number] : 1965 F 53 From: Siddharth Chacon MD PCP: Care Physician, No Primary Status: REG CLI Study: Brain W/WO Contrast Date of Exam: 07/19/18 Exam# [id number] Ordering Dr: Kev Schroeder DO STUDY: MRI BRAIN WITH AND WITHOUT CONTRAST REASON FOR EXAM: Female, 53 years old. Breast carcinoma with brain metastases. Restaging after treatment. TECHNIQUE: Standardized multiplanar fat and water weighted pulse sequences were obtained. 7 ml of Gadavist contrast material was administered intravenously for the contrast portion of the examination. COMPARISON: 04/23/2018. FINDINGS: No restricted diffusion to suspect acute or subacute ischemic infarcts. Marked increase in number of in numerable enhancing metastatic mass lesions in both cerebellar hemispheres. There is also increased number of brain metastatic mass lesions in both cerebral hemispheres, the left cerebellar peduncle and in the right upper pontine tegmentum bordering the base of the right cerebral peduncle/substantia nigra. Normal ventricles and cisterns. No communicating or noncommunicating hydrocephalus. Periventricular white matter T2 FLAIR hyperintensity foci may be post radiation changes. The cortical and subcortical white matter T2 FLAIR hyperintensity foci correspond to the minimal edema associated with the brain metastatic mass lesions in the cerebral hemispheres and cerebellar hemispheres. Normal bilateral basal ganglia. Normal thalami. There is no extra-axial fluid accumulation. Normal flow voids within the major intracranial circulation suggesting patency by spin echo criteria. Normal venous enhancement. Normal sella turcica, pituitary gland, infundibular stalk, optic chiasm and hypothalamus. Normal tectal plate and pineal gland. The lower jose and medulla are normal. Innumerable cerebellar metastatic mass lesions. Normal basal cisterns. Normal bilateral temporal bones. Normal bilateral internal auditory canals. No demonstrated orbital abnormality, within the constraints of a routine brain study. Normal visualized paranasal sinuses. Normal calvarium and skull base. Normal visualized soft tissue structures. Normal visualized upper cervical spine. MRI/Brain W/WO Contrast IMPRESSION: Marked progression of brain metastatic disease, innumerable in the cerebellar hemispheres and additional brain metastatic mass lesions in both cerebral hemispheres, the left medial cerebral peduncle and in the right upper pontine tegmentum junction with the substantia nigra behind the right cerebral peduncle. Electronically Signed: Siddharth Chacon MD at 15:44 EDT , Service support , CC: No Primary Care Physician; Kev Schroeder DO Wheel Truer: Signed ONCOLOGY VISIT REPORT Observed: 07/16/2018 Status: F Source: SECOR 9:56 AM [facility] [place] [address] OFFICE VISIT Date of Service: 07/16/18 0914 MR#: [id number] Acct: [id number] Name: LINDSAY ANTUNEZ Rep #: [id number] : 1965 From: Carolina Pak MD Age/Sex: 53/F Location: [facility] Status: Signed - Problem List (1) Primary cancer of left female breast Status: Chronic (2) Regional lymph node metastasis present Status: Chronic (3) Bone metastases Status: Chronic (4) Brain metastases Status: Chronic (5) Anemia Status: Chronic (6) Fatigue Status: Chronic (7) Anorexia Status: Chronic - Date of Service Date of Service:: 07/16/18 - Chief Complaint Breast cancer on treatment - History of Present Illness Patient is a 52-year-old female perimenopausal who never had screening mammographies and became aware of a painless lump in the left breast and a second lump in the left axilla in August 2017. She did not seek any medical care until October 09, 2017 when she developed chest pain and dyspnea. She was seen in [place] emergency room, diagnosed and treated for pneumonia and referred to surgical consultation when the breast mass was noted on exam. Mammography and ultrasound examination confirmed the palpable abnormalities. On October 12, 2017 she underwent biopsies from the left breast mass and the left axilla that confirmed an invasive lobular carcinoma nuclear grade 3 ER negative, DC negative, HER-2 overexpressed 3+. On October [address] scan of the chest that showed emphysematous changes and diffuse bony lytic lesions throughout the thoracic and lumbar vertebrae and lower cervical segments, lytic lesions in humeral heads bilaterally, sternum, clavicles, left scapula and several ribs bilaterally. CT scan of the abdomen and pelvis showed an indeterminate lesion too small to characterize in the liver but no other visceral disease, widespread bony metastatic disease was again noted. A bone scan October 2017 initial staging showed diffuse skeletal metastatic disease. A bone biopsy October 27, 2017 confirmed metastatic cancer of breast origin. Brain MRI showed small multiple metastatic lesions one in the posterior right internal capsule, multiple bilateral small cerebellar metastases. CA 27-29 not elevated at diagnosis and therefore will not aid in follow-up. Her family history is notable for 2 maternal aunts with breast cancers but no first-degree relatives was breast cancer Treatment: Focal radiation therapy to the sites of disease in the STATE PILOT at [facility] 10/2017 Whole brain radiation therapy 3000 cGy of 6 MV photons in 10 fractions 02/28/18- 03/13/18. Systemic therapy was held during whole brain radiation. [id number] 11/2017-03/2018 (6 cycles) : Excess toxicity Abraxane Herceptin : May 07/2018- - Past Medical/Social History Past Medical History Past Medical History: Pneumonia Cancer: Breast cancer Other Cancer History: Radiation to brain Social History Social History: No changes Smoking Status Former smoker Review of Systems Constitutional:: Reports: Weakness, Fatigue - Able to do ADL, minimal assistance from . Denies: Fever, Sweats, Weight loss, Appetite change, Chills Cardiovascular:: Reports: Dyspnea on exertion. Denies: Chest pain, Palpitations, Orthopnea, PND, Shortness of breath Respiratory: Reports: Shortness of breath upon exertion. Denies: Cough, Hemoptysis, Shortness of Breath, Wheezing Gastrointestinal:: Denies: Abdominal pain, Nausea, Vomiting, Diarrhea, Constipation, Hematochezia Genitourinary: Denies: Dysuria, Hematuria, 15, Flank pain Musculoskeletal:: Reports: - - Bone pain controlled with analgesia. Denies: Myalgia, Arthralgia Skin: Denies: Rash, Skin Changes, Wounds Neurological:: Denies: Headache, Dizziness, Visual changes, Tinnitus, Hearing loss Psychiatric: Denies: Anxiety, Depression, Homicidal Ideations, Suicidal Ideations Vital Signs Height 5 ft 2 in Weight: 65.317 kg - Physical Exam General: Alert, Oriented x3, No apparent distress, - - ECOG 1-2 HEENT: Atraumatic, PERRLA, EOMI, Normocephalic Oropharynx:: Dry mucosa Neck:: Supple, Trachea midline. Negative for: JVD, bilateral Cardiac:: Regular rate, Regular rhythm, Normal S1, Normal S2. Negative for: Murmur Lungs: Clear to auscultation, Excusion symmetrical. Negative for: Rhonchi, Wheezes Abdomen:: Bowel sounds x 4, Soft, Non-tender, Non-distended. Negative for: Hepatosplenomegaly Extremities:: Negative for: Cyanosis, Edema Neurological: Neuro grossly intact Skin:: Negative for: Lesions, Rash, Petechiae, Ecchymosis Psychiatric:: Appropriate affect, Euthymic Lymphatics:: Negative for: Cervical lymphadenopathy, Supraclavicular lymphadenopathy, Axillary lymphadenopathy Assessment and Plan Assessment: 53-year-old female, perimenopausal at diagnosis with stage IV invasive lobular carcinoma of the left breast (T2, N3, M1) with metastases to left axillary, left supraclavicular and left cervical lymph nodes in addition to widespread metastatic disease to bone , an indeterminate lesion in the liver too small to characterize, and multiple bilateral brain metastases . Disease is ER negative, DC negative, HER-2 overexpressed. Treated with focal radiation therapy to the brain at [facility] October 2017 then whole brain radiation due to STATE PILOT recurrence February 2018. Systemic combination of Pertuzumab, trastuzumab, and Taxotere received total 6 cycles between November - March 2018 with temporary interruption to allow brain radiation. Anemia and GI toxicity appeared to be the main side effects experienced. A bone scan in April 2018 did not report new bony lesions but continued demonstration of diffuse skeletal metastatic disease more confluent. Changed to second line treatment with weekly trastuzumab Abraxane with better tolerance. Comorbid conditions COPD, active smoker, poor dentition. Plan; #1 Concluded focal brain radiation for metastatic disease in the STATE PILOT at [facility] 10/2017 then whole brain radiation due to STATE PILOT recurrence in February 2018. #2 She has extensive widespread bony metastatic disease, that in the spine does not impinge on the spinal cord at presentation, stable #3 Pain management consulted to optimize pain control. #4 Systemic therapy, continue with Abraxane and Herceptin as of May 07, 2018. #5 Continue bisphosphonate therapy for metastatic bone disease every 3 months in addition to calcium and vitamin D supplement #6 Anemia partly due to metastatic disease to bone marrow and suppression by systemic chemotherapy. No evidence for iron or B12 deficiency found. #7 Echo (/3M of Rx) last was April, showed preserved EF. Next is due July 2018. #8 CA-27-29 not elevated at diagnosis and therefore not helpful and follow-up of disease course. Patient was seen with her , impression and plan discussed. Medications: Prescriptions This Visit Medication Instructions Recorded Primary Care Provider: No Primary Care Phys Referring Provider: Carolina Pak MD 07/16/18 0956 <Electronically signed by Carolina Pak MD> Date Carolina Pasha Escaleraignsully Signature: Date (if applicable) CC: CBC W/DIFF, AUTOMATED Collected: 07/16/2018 Status: C Source: KRYSTAL 9:32 AM [facility] REPOSITORY TYPE CODE TESTS RESULT OUT OF RANGE REFERENCE UNITS LAB L100.1000 4.4-11.0 K/mm3 Normal WBC 5.6 LAB L100.1200 4.2-5.4 M/mm3 Low RBC 3.84 LAB L100.1300 12.0-15.0 g/dl Low HGB 11.7 LAB L100.1400 37-47 % Normal HCT 37.2 LAB L100.1500 81-99 fL Normal MCV 96.9 LAB L100.1600 27.0-32.0 pg Normal MCH 30.5 LAB L100.1700 32-36 g/gl Low MCHC 31.5 LAB L100.1810 11.6-14.6 % Normal RDW CV 14.3 LAB L100.1820 35.1-43.9 fl High RDW SD 47.8 LAB L100.1900 150-450 K/mm3 Normal PLT 358 LAB L100.2000 6.2-12.0 fl Normal MPV 9.4 LAB L100.3100 MANUAL DIFF Normal CELLS COUNTED 100 LAB L100.3200 47-70 % High 74 SEGS LAB L100.3800 19-41 % Low 15 LYMPH LAB L100.3900 0-10 % High 11 MONOCYTE LAB L100.5500 ADEQ Normal PLT EST ADEQUATE Result Comment: AMENDED REPORT 07/17/18 0203 PLT EST previously reported as: A LAB L100.7000 NORM C AND NORMAL C Normal RED NORM C+C CELL MORPH LAB L100.9900 Normal PATH Reviewed REV Result Comment: AMENDED REPORT 07/18/18 6517 PATH REV previously reported as: May foll LAB L100.2620 2.0-7.7 X10 3/uL Normal Absolute Neut 4.1 LAB L100.2720 0.83-4.51 X10 3/ul Normal Absolute Lymph 0.84 Performed By: #### L100.0100 #### [facility] [address] [place], [address] ONCOLOGY VISIT REPORT Observed: 07/09/2018 Status: F Source: SECOR 10:14 AM [facility] REPOSITORY [facility] [address] [place] [address] OFFICE VISIT Date of Service: 07/09/18 1011 MR#: [id number] Acct: [id number] Name: LINDSAY ANTUNEZ Rep #: [id number] : 1965 From: Carolina Pak MD Age/Sex: 53/F Location: [facility]MD Status: Signed - Problem List (1) Primary cancer of left female breast Status: Chronic (2) Regional lymph node metastasis present Status: Chronic (3) Bone metastases Status: Chronic (4) Brain metastases Status: Chronic (5) Anemia Status: Chronic (6) Fatigue Status: Chronic (7) Anorexia Status: Chronic - Date of Service Date of Service:: 07/09/18 - Chief Complaint Breast cancer on treatment - History of Present Illness Patient is a 52-year-old female perimenopausal who never had screening mammographies and became aware of a painless lump in the left breast and a second lump in the left axilla in August 2017. She did not seek any medical care until October 09, 2017 when she developed chest pain and dyspnea. She was seen in [facility] emergency room, diagnosed and treated for pneumonia and referred to surgical consultation when the breast mass was noted on exam. Mammography and ultrasound examination confirmed the palpable abnormalities. On October 12, 2017 she underwent biopsies from the left breast mass and the left axilla that confirmed an invasive lobular carcinoma nuclear grade 3 ER negative, DC negative, HER-2 overexpressed 3+. On October [address] scan of the chest that showed emphysematous changes and diffuse bony lytic lesions throughout the thoracic and lumbar vertebrae and lower cervical segments, lytic lesions in humeral heads bilaterally, sternum, clavicles, left scapula and several ribs bilaterally. CT scan of the abdomen and pelvis showed an indeterminate lesion too small to characterize in the liver but no other visceral disease, widespread bony metastatic disease was again noted. A bone scan October 2017 initial staging showed diffuse skeletal metastatic disease. A bone biopsy October 27, 2017 confirmed metastatic cancer of breast origin. Brain MRI showed small multiple metastatic lesions one in the posterior right internal capsule, multiple bilateral small cerebellar metastases. CA 27-29 not elevated at diagnosis and therefore will not aid in follow-up. Her family history is notable for 2 maternal aunts with breast cancers but no first-degree relatives was breast cancer Treatment: Focal radiation therapy to the sites of disease in the STATE PILOT at [facility] 10/2017 Whole brain radiation therapy 3000 cGy of 6 MV photons in 10 fractions 02/28/18- 03/13/18. Systemic therapy was held during whole brain radiation. Lsdfozixut-Tgemdsowtga-Ffohlwdg 11/2017-03/2018 (6 cycles) : Excess toxicity Abraxane Herceptin : May 07/2018- - Past Medical/Social History Past Medical History Past Medical History: Pneumonia Cancer: Breast cancer Other Cancer History: Radiation to brain Social History Social History: No changes Smoking Status Former smoker Review of Systems Constitutional:: Reports: Weakness, Fatigue - Able to do ADL independently, Appetite change - Appetite is good. Denies: Fever, Sweats, Weight loss, Chills Cardiovascular:: Reports: Dyspnea on exertion. Denies: Chest pain, Palpitations, Orthopnea, PND, Shortness of breath Respiratory: Reports: Cough - Occasional was clear sputum, Shortness of breath upon exertion. Denies: Hemoptysis, Shortness of Breath, Wheezing Gastrointestinal:: Reports: Nausea - Occasional response to as needed Zofran. Denies: Abdominal pain, Vomiting, Diarrhea, Constipation, Hematochezia Genitourinary: Denies: Dysuria, Hematuria, 15, Flank pain Musculoskeletal:: Reports: - - Pain is well controlled. Denies: Back pain, Myalgia, Arthralgia Skin: Reports: Lesions - Chronic unchanged skin nodule. Denies: Rash, Skin Changes, Wounds Neurological:: Denies: Headache, Dizziness, Visual changes, Tinnitus, Hearing loss Psychiatric: Denies: Anxiety, Depression, Homicidal Ideations, Suicidal Ideations Comment: Can no longer feel the lump in the breast or axilla Vital Signs Height 5 ft 2 in Weight: 65.317 kg - Physical Exam General: Alert, Oriented x3, No apparent distress, - - ECOG 1-2 HEENT: Atraumatic, PERRLA, EOMI, Normocephalic Oropharynx:: Dry mucosa Neck:: Supple, Trachea midline, - - Port okay. Negative for: JVD, bilateral Cardiac:: Regular rate, Regular rhythm, Normal S1, Normal S2. Negative for: Murmur Lungs: Clear to auscultation, Excusion symmetrical. Negative for: Rhonchi, Wheezes Abdomen:: Soft, Non-tender, Non-distended. Negative for: Hepatosplenomegaly Extremities:: Negative for: Cyanosis, Edema Neurological: Neuro grossly intact Skin:: Lesions - Chronic subcutaneous nodules/fibromas unchanged. Negative for: Rash, Petechiae, Ecchymosis Psychiatric:: Appropriate affect, Euthymic Lymphatics:: Negative for: Cervical lymphadenopathy, Supraclavicular lymphadenopathy, Axillary lymphadenopathy Laboratory Data: Laboratory Tests WBC 6.8 (4.4-11.0) K/mm3 Assessment and Plan Assessment: 53-year-old female, perimenopausal at diagnosis with stage IV invasive lobular carcinoma of the left breast (T2, N3, M1) with metastases to left axillary, left supraclavicular and left cervical lymph nodes in addition to widespread metastatic disease to bone , an indeterminate lesion in the liver too small to characterize, and multiple bilateral brain metastases . Disease is ER negative, DC negative, HER-2 overexpressed. Treated with focal radiation therapy to the brain at [facility] October 2017 then whole brain radiation due to STATE PILOT recurrence February 2018. Systemic combination of Pertuzumab, trastuzumab, and Taxotere received total 6 cycles between November - March 2018 with temporary interruption to allow brain radiation. Anemia and GI toxicity appeared to be the main side effects experienced. A bone scan in April 2018 did not report new bony lesions but continued demonstration of diffuse skeletal metastatic disease more confluent. Changed to second line treatment with weekly trastuzumab Abraxane with better tolerance. Comorbid conditions COPD, active smoker, poor dentition. Plan; #1 Concluded focal brain radiation for metastatic disease in the STATE PILOT at [facility] 10/2017 then whole brain radiation due to STATE PILOT recurrence in February 2018. #2 She has extensive widespread bony metastatic disease, that in the spine does not impinge on the spinal cord at presentation, stable #3 Pain management consulted to optimize pain control. #4 Systemic therapy, with Abraxane and Herceptin as of May 07, 2018. #5 Continue bisphosphonate therapy for metastatic bone disease every 3 months in addition to calcium and vitamin D supplement #6 Anemia partly due to metastatic disease to bone marrow and suppression by systemic chemotherapy. No evidence for iron or B12 deficiency found. #7 Echo (/3M of Rx) last was April, showed preserved EF. Next is due July 2018. #8 CA-27-29 not elevated at diagnosis and therefore not helpful and follow-up of disease course. Patient was seen with her , impression and plan discussed. Medications: Prescriptions This Visit Medication Instructions Recorded Dexamethasone 4 mg PO BID #30 tab 10/19/17 Medications Added to Medication List This Visit Zoledronic Acid [Zometa] 4 mg Med 07/09/18 16:28 Ordered 0.9% Normal Saline 100 ml IV X1 Primary Care Provider: No Primary Care Phys Referring Provider: Carolina Pak MD 07/09/18 1014 <Electronically signed by Carolina Pak MD> Date Carolina Pak MD Cosigner Signature: Date (if applicable) CC: CBC W/DIFF, AUTOMATED Collected: 07/09/2018 Status: C Source: KRYSTAL 9:18 AM [facility] REPOSITORY TYPE CODE TESTS RESULT OUT OF RANGE REFERENCE UNITS LAB L100.1000 4.4-11.0 K/mm3 Normal WBC 6.8 LAB L100.1200 4.2-5.4 M/mm3 Low RBC 3.87 LAB L100.1300 12.0-15.0 g/dl Low HGB 11.8 LAB L100.1400 37-47 % Normal HCT 37.6 LAB L100.1500 81-99 fL Normal MCV 97.2 LAB L100.1600 27.0-32.0 pg Normal MCH 30.5 LAB L100.1700 32-36 g/gl Low MCHC 31.4 LAB L100.1810 11.6-14.6 % Normal RDW CV 14.4 LAB L100.1820 35.1-43.9 fl High RDW SD 48.8 LAB L100.1900 150-450 K/mm3 Normal PLT 305 LAB L100.2000 6.2-12.0 fl Normal MPV 9.4 LAB L100.3100 MANUAL DIFF Normal CELLS COUNTED 100 LAB L100.3200 47-70 % 60 Normal SEGS LAB L100.3500 0-0 High 1 MYELO LAB L100.3800 19-41 % 29 Normal LYMPH LAB L100.3900 0-10 % 9 Normal MONOCYTE LAB L100.4000 0-5 % 1 Normal EOS LAB L100.4600 % Normal ATYPICAL LYMPH RARE LAB L100.5500 ADEQ Normal PLT EST ADEQUATE LAB L100.7000 NORM C AND C NORMAL Normal RED CELL MORPH NORM C+C LAB L100.2620 2.0-7.7 X10 3/uL Normal Absolute Neut 4.1 LAB L100.2720 0.83-4.51 X10 3/ul Normal Absolute Lymph 1.97 LAB L100.9900 Normal PATH REV Reviewed Result Comment: Neutrophilic left shift. Clinical correlation necessary. Chalo Chappell M.D. 07/10/18 AMENDED REPORT 07/10/18 1222 PATH REV previously reported as: January carmelo Performed By: #### L100.0100 #### [facility] [address] [place], [address] ONCOLOGY VISIT REPORT Observed: 07/02/2018 Status: F Source: SECOR 10:03 AM [facility] REPOSITORY [facility] [address] [place] [address] OFFICE VISIT Date of Service: 07/02/18 0921 MR#: [id number] Acct: [id number] Name: LINDSAY ANTUNEZ Rep #: [id number] : 1965 From: Carolina Pak MD Age/Sex: 53/F Location: OMD Status: Signed - Problem List (1) Primary cancer of left female breast Status: Chronic (2) Regional lymph node metastasis present Status: Chronic (3) Bone metastases Status: Chronic (4) Brain metastases Status: Chronic (5) Anemia Status: Chronic (6) Fatigue Status: Chronic (7) Anorexia Status: Chronic - Date of Service Date of Service:: 07/02/18 - Chief Complaint Breast cancer on treatment - History of Present Illness Patient is a 52-year-old female perimenopausal who never had screening mammographies and became aware of a painless lump in the left breast and a second lump in the left axilla in August 2017. She did not seek any medical care until October 09, 2017 when she developed chest pain and dyspnea. She was seen in [facility] emergency room, diagnosed and treated for pneumonia and referred to surgical consultation when the breast mass was noted on exam. Mammography and ultrasound examination confirmed the palpable abnormalities. On October 12, 2017 she underwent biopsies from the left breast mass and the left axilla that confirmed an invasive lobular carcinoma nuclear grade 3 ER negative, DC negative, HER-2 overexpressed 3+. On October [address] scan of the chest that showed emphysematous changes and diffuse bony lytic lesions throughout the thoracic and lumbar vertebrae and lower cervical segments, lytic lesions in humeral heads bilaterally, sternum, clavicles, left scapula and several ribs bilaterally. CT scan of the abdomen and pelvis showed an indeterminate lesion too small to characterize in the liver but no other visceral disease, widespread bony metastatic disease was again noted. A bone scan October 2017 initial staging showed diffuse skeletal metastatic disease. A bone biopsy October 27, 2017 confirmed metastatic cancer of breast origin. Brain MRI showed small multiple metastatic lesions one in the posterior right internal capsule, multiple bilateral small cerebellar metastases. CA 27-29 not elevated at diagnosis and therefore will not aid in follow-up. Her family history is notable for 2 maternal aunts with breast cancers but no first-degree relatives was breast cancer Treatment: Focal radiation therapy to the sites of disease in the STATE PILOT at [facility] 10/2017 Whole brain radiation therapy 3000 cGy of 6 MV photons in 10 fractions 02/28/18- 03/13/18. Systemic therapy was held during whole brain radiation. Cscnzodxwq-Xqbsqsgdasu-Ggsocciz 11/2017-03/2018 (6 cycles) : Excess toxicity Abraxane Herceptin : May 07/2018- - Past Medical/Social History Past Medical History Past Medical History: Pneumonia Cancer: Breast cancer Other Cancer History: Radiation to brain Social History Social History: No changes Smoking Status Former smoker Review of Systems Constitutional:: Reports: Fatigue, Weight gain - Appetite is good on exertion. Denies: Fever, Sweats, Weight loss, Appetite change, Chills Cardiovascular:: Denies: Chest pain, Palpitations, Dyspnea on exertion, Orthopnea, PND, Shortness of breath Respiratory: Denies: Cough, Hemoptysis, Shortness of Breath, Wheezing Gastrointestinal:: Denies: Abdominal pain, Nausea, Vomiting, Diarrhea, Constipation, Hematochezia Genitourinary: Denies: Dysuria, Hematuria, 15, Flank pain Musculoskeletal:: Reports: Back pain - Controlled with analgesia. Denies: Myalgia, Arthralgia Skin: Reports: Lesions - Chronic unchanged cutaneous nodules. Denies: Rash, Skin Changes, Wounds Neurological:: Denies: Headache, Dizziness, Visual changes, Tinnitus, Hearing loss Psychiatric: Denies: Anxiety, Depression, Homicidal Ideations, Suicidal Ideations Vital Signs Height 5 ft 2 in Weight: 64.319 kg - Physical Exam General: Alert, Oriented x3, No apparent distress, - - ECOG 1-2 HEENT: Atraumatic, PERRLA, EOMI, Normocephalic Oropharynx:: Dry mucosa Neck:: Supple, Trachea midline, - - Port okay. Negative for: JVD, bilateral Cardiac:: Regular rate, Regular rhythm, Normal S1, Normal S2. Negative for: Murmur Lungs: Clear to auscultation, Excusion symmetrical. Negative for: Rhonchi, Wheezes Abdomen:: Soft, Non-tender, Non-distended. Negative for: Hepatosplenomegaly Extremities:: Negative for: Cyanosis, Edema Neurological: Neuro grossly intact Skin:: Negative for: Lesions, Rash, Petechiae, Ecchymosis Psychiatric:: Appropriate affect, Euthymic Lymphatics:: Negative for: Cervical lymphadenopathy, Supraclavicular lymphadenopathy, Axillary lymphadenopathy Assessment and Plan Assessment: 53-year-old female, perimenopausal at diagnosis with stage IV invasive lobular carcinoma of the left breast (T2, N3, M1) with metastases to left axillary, left supraclavicular and left cervical lymph nodes in addition to widespread metastatic disease to bone , an indeterminate lesion in the liver too small to characterize, and multiple bilateral brain metastases . Disease is ER negative, DC negative, HER-2 overexpressed. Treated with focal radiation therapy to the brain at [facility] October 2017 then whole brain radiation due to STATE PILOT recurrence February 2018. Systemic combination of Pertuzumab, trastuzumab, and Taxotere received total 6 cycles between November - March 2018 with temporary interruption to allow brain radiation. Anemia and GI toxicity appeared to be the main side effects experienced. A bone scan in April 2018 did not report new bony lesions but continued demonstration of diffuse skeletal metastatic disease more confluent. Changed to second line treatment with weekly trastuzumab Abraxane with better tolerance. Comorbid conditions COPD, active smoker, poor dentition. Plan; #1 Concluded focal brain radiation for metastatic disease in the [facility] PILOT at [facility] 10/2017 then whole brain radiation due to STATE PILOT recurrence in February 2018. #2 She has extensive widespread bony metastatic disease, that in the spine does not impinge on the spinal cord at presentation, stable #3 Pain management consulted to optimize pain control. #4 Systemic therapy, with Abraxane and Herceptin as of May 07, 2018. #5 Continue bisphosphonate therapy for metastatic bone disease every 3 months in addition to calcium and vitamin D supplement #6 Anemia partly due to metastatic disease to bone marrow and suppression by systemic chemotherapy. No evidence for iron or B12 deficiency found. #7 Echo (/3M of Rx) last was April, showed preserved EF. Next is due July 2018. #8 CA-27-29 not elevated at diagnosis and therefore not helpful and follow-up of disease course. Patient was seen with her , impression and plan discussed. Medications: Prescriptions This Visit Medication Instructions Recorded Dexamethasone 4 mg PO BID #30 tab 10/19/17 Lidocaine/Prilocaine 30 gm TP DAILY PRN PRN #1 cream..g. 10/19/17 [Lidocaine-Prilocaine Cream] Acetaminophen [Tylenol] 325 mg PO PRN PRN 02/13/18 Primary Care Provider: No Primary Care Phys Referring Provider: Carolina Pak MD 07/02/18 1003 <Electronically signed by Carolina Pak MD> Date Carolina Pak MD Cosigner Signature: Date (if applicable) CC: BETTINA W/DIFF, AUTOMATED Collected: 07/02/2018 Status: C Source: KRYSTAL 9:17 AM [facility] REPOSITORY TYPE CODE TESTS RESULT OUT OF REFERENCE UNITS RANGE LAB L100.1000 4.4-11.0 K/mm3 WBC Normal 7.0 LAB L100.1200 4.2-5.4 M/mm3 Low RBC 3.67 LAB L100.1300 12.0-15.0 g/dl Low HGB 11.4 LAB L100.1400 37-47 % Low HCT 35.7 LAB L100.1500 81-99 fL MCV Normal 97.3 LAB L100.1600 27.0-32.0 pg MCH Normal 31.1 LAB L100.1700 32-36 g/gl Low MCHC 31.9 LAB L100.1810 11.6-14.6 % RDW CV High 14.7 LAB L100.1820 35.1-43.9 fl RDW SD High 49.7 LAB L100.1900 150-450 K/mm3 PLT Normal 275 LAB L100.2000 6.2-12.0 fl MPV Normal 8.7 LAB L100.2620 2.0-7.7 X10 3/uL Absolute Neut Normal 4.7 LAB L100.2720 0.83-4.51 X10 3/ul Absolute Lymph Normal 1.10 LAB L100.3200 47-70 % SEGS Normal 67 LAB L100.3500 0-0 MYELO High 1 LAB L100.3800 19-41 % Low LYMPH 16 LAB L100.3900 0-10 % MONOCYTE High 13 LAB L100.4000 0-5 % EOS Normal 1 LAB L100.4100 0-1 % BASOPHIL High 2 LAB L100.5500 ADEQ PLT EST Normal ADEQUATE LAB L100.7500 POLYCHROMASIA Normal RARE LAB L100.7600 HYPOCHROMASIA Normal RARE LAB L100.9900 PATH REV Normal Reviewed Result Comment: Neutrophilic left shift. Clinical correlation necessary. Chalo Chappell M.D. 07/04/18 AMENDED REPORT 07/04/18 0909 PATH REV previously reported as: Beth rhodes Performed By: #### L100.0100 #### [facility] [address] [place], [address] COMPREHENSIVE METABOLIC Collected: 07/02/2018 Status: F Source: KRYSTAL PROFIL 9:17 AM [facility] REPOSITORY TYPE CODE TESTS RESULT OUT OF RANGE REFERENCE UNITS LAB L501.0100 74-106 mg/dL Normal GLU 104 Result Comment: Fasting Glucose result from 100 to 125 mg/dL suggests IMPAIRED HOMEOSTASIS per A.D.A. criteria. Please note revised GLUCOSE reference range effective 2017. LAB L501.1000 7-18 mg/dL Low BUN 4 LAB L501.1100 0.55-1.02 mg/dL Normal CREAT,SERUM 0.79 Result Comment: The validity of the calculated GFR AND GFRAA in patients over 70 years has not been determined. Clinical correlation is essential. LAB L501.1110 >60 mL/min Normal EST GFR 81 Result Comment: Non- GFR Calc LAB L501.1115 >60 mL/min Normal EST GFR - AA 99 Result Comment: GFR Calc LAB L501.1255 ml/min Normal Estimated CRCL 66.63 LAB L501.1300 10-20 RATIO Low BUN/CRE 5.1 LAB L501.1500 6.4-8. g/dL Low 2 T PROT 5.8 LAB L501.1800 3.2-5. g/dL Normal 0 ALB 3.2 LAB L501.1950 2.2-4. g/dL Normal 2 GLOB 2.6 LAB L501.2000 0.9-2. RATIO Normal 4 A/G 1.2 LAB L501.2200 8.5-10 mg/dL Normal .1 CA 8.7 LAB L501.4100 15-37 U/L Low AST 10 LAB L501.4305 45-117 U/L Low ALK P 35 LAB L501.4405 13-56 U/L Normal ALT 16 LAB L501.4600 0.20-1 mg/dL Normal .00 T BILI 0.30 LAB L501.5300 136-14 mmol/L Normal 5 NA 143 LAB L501.5600 3.5-5. mmol/L Low 1 K 3.3 LAB L501.5900 98-107 mmol/L Normal CL 107 LAB L501.6100 21.0-3 mmol/L Normal 2.0 CO2 30.0 LAB L501.6200 5-15 Normal GAP 6 Performed By: #### L500.4050 #### [facility] [address] [place], [address] THORACIC SPINE 3 Observed: 06/26/2018 Status: F Source: SECOR VIEWS 12:28 PM [facility] REPOSITORY [facility] [place] [address] [place] [address] Thoracic Spine 3 Views MR#: [id number] Acct: [id number] Name: LINDSAY ANTUNEZ Rep #: [id number] : 1965 F 53 From: Guevara Emanuel DO PCP: En Granados III, MD Status: REG CLI Study: Thoracic Spine 3 Views Date of Exam: 06/26/18 Exam# [id number] Ordering Dr: Lauro Anderson MD STUDY: X-RAY - THORACIC SPINE REASON FOR EXAM: Female, 53 years old. Back pain. Breast cancer with metastases to the brain bone and lymph nodes. TECHNIQUE: 2 view(s) of the thoracic spine were obtained. COMPARISON: Bone scan, April 26, 2018. FINDINGS: There is mild exaggeration of kyphosis due to sclerosis and anterior wedging of what appears to be the T11 vertebra. Mildly increased density is seen throughout the thoracic spine consistent with diffuse metastatic disease. There is a questionable compression deformity of the superior endplate of L1. No other compression deformities are seen. There is no substantial scoliosis. There is multilevel endplate spondylosis of the thoracic vertebrae. Normal disc space heights. The soft tissue structures are unremarkable. There is a right jugular Port-A-Cath. RAD/Thoracic Spine 3 Views IMPRESSION: Diffuse sclerotic changes of the thoracic spine consistent with diffuse metastatic disease. There is anterior wedging of the T11 vertebra. Electronically Signed: Guevara Emanuel DO at 22:07 EDT Tel [phone], Service support , CC: Lauro Anderson MD; En Granados III, MD Wheel Truer: Signed ONCOLOGY VISIT REPORT Observed: 06/18/2018 Status: F Source: SECOR 9:45 AM [facility] REPOSITORY [facility] [place] [address] [place] [address] OFFICE VISIT Date of Service: 06/18/18913 MR#: [id number] Acct: [id number] Name: LINDSAY ANTUNEZ Rep #: [id number] : 1965 From: Carolina Pak MD Age/Sex: 53/F Location: [facility]MD Status: Signed - Problem List (1) Primary cancer of left female breast Status: Chronic (2) Regional lymph node metastasis present Status: Chronic (3) Bone metastases Status: Chronic (4) Brain metastases Status: Chronic (5) Anemia Status: Chronic (6) Fatigue Status: Chronic (7) Anorexia Status: Chronic - Date of Service Date of Service:: 06/18/18 - Chief Complaint Breast cancer on treatment - History of Present Illness Patient is a 52-year-old female perimenopausal who never had screening mammographies and became aware of a painless lump in the left breast and a second lump in the left axilla in August 2017. She did not seek any medical care until October 09, 2017 when she developed chest pain and dyspnea. She was seen in [facility] emergency room, diagnosed and treated for pneumonia and referred to surgical consultation when the breast mass was noted on exam. Mammography and ultrasound examination confirmed the palpable abnormalities. On October 12, 2017 she underwent biopsies from the left breast mass and the left axilla that confirmed an invasive lobular carcinoma nuclear grade 3 ER negative, DC negative, HER-2 overexpressed 3+. On October [address] scan of the chest that showed emphysematous changes and diffuse bony lytic lesions throughout the thoracic and lumbar vertebrae and lower cervical segments, lytic lesions in humeral heads bilaterally, sternum, clavicles, left scapula and several ribs bilaterally. CT scan of the abdomen and pelvis showed an indeterminate lesion too small to characterize in the liver but no other visceral disease, widespread bony metastatic disease was again noted. A bone scan October 2017 initial staging showed diffuse skeletal metastatic disease. A bone biopsy October 27, 2017 confirmed metastatic cancer of breast origin. Brain MRI showed small multiple metastatic lesions one in the posterior right internal capsule, multiple bilateral small cerebellar metastases. CA 27-29 not elevated at diagnosis and therefore will not aid in follow-up. Her family history is notable for 2 maternal aunts with breast cancers but no first-degree relatives was breast cancer Treatment: Focal radiation therapy to the sites of disease in the [facility] PILOT at [facility] 10/2017 Whole brain radiation therapy 3000 cGy of 6 MV photons in 10 fractions 02/28/18- 03/13/18. Systemic therapy was held during whole brain radiation. Iftxubtkpf-Yssipabldoc-Oopytyfn 11/2017-03/2018 (6 cycles) : Excess toxicity Abraxane Herceptin : May 07/2018- - Past Medical/Social History Past Medical History Past Medical History: Pneumonia Cancer: Breast cancer Other Cancer History: Radiation to brain Social History Social History: No changes Smoking Status Former smoker Review of Systems Constitutional:: Reports: Fatigue. Denies: Fever, Sweats, Weight loss, Appetite change, Chills Cardiovascular:: Reports: Dyspnea on exertion. Denies: Chest pain, Palpitations, Orthopnea, PND, Shortness of breath Respiratory: Reports: Shortness of breath upon exertion. Denies: Cough, Hemoptysis, Shortness of Breath, Wheezing Gastrointestinal:: Reports: Nausea - Very infrequent, response to as needed antinausea, more related to analgesics than her chemotherapy. Denies: Abdominal pain, Vomiting, Diarrhea, Constipation, Hematochezia Genitourinary: Denies: Dysuria, Hematuria, 15, Flank pain Musculoskeletal:: Reports: - - Bony aches and pains are well- controlled, very infrequent use of breakthrough analgesia. Denies: Back pain, Myalgia, Arthralgia Skin: Denies: Rash, Skin Changes, Wounds Neurological:: Denies: Headache, Dizziness, Visual changes, Tinnitus, Hearing loss Psychiatric: Denies: Anxiety, Depression, Homicidal Ideations, Suicidal Ideations Vital Signs Height 5 ft 2 in Weight: 63.957 kg - Physical Exam General: Alert, Oriented x3, No apparent distress, - - ECOG 1-2 HEENT: Atraumatic, PERRLA, EOMI, Normocephalic Oropharynx:: Dry mucosa Neck:: Supple, Trachea midline, - - Port okay. Negative for: JVD, bilateral Cardiac:: Regular rate, Regular rhythm, Normal S1, Normal S2. Negative for: Murmur Lungs: Clear to auscultation, Excusion symmetrical. Negative for: Rhonchi, Wheezes Abdomen:: Soft, Non-tender, Non-distended. Negative for: Hepatosplenomegaly Extremities:: Negative for: Cyanosis, Edema Neurological: Neuro grossly intact Skin:: Negative for: Lesions, Rash, Petechiae, Ecchymosis Psychiatric:: Appropriate affect, Euthymic Lymphatics:: Negative for: Cervical lymphadenopathy, Supraclavicular lymphadenopathy, Axillary lymphadenopathy Laboratory Data: Laboratory Tests WBC 4.9 (4.4-11.0) K/mm3 RBC 3.95 L (4.2-5.4) M/mm3 Hgb 11.9 L (12.0-15.0) g/dl Hct 37.9 (37-47) % Assessment and Plan Assessment: 52-year-old female, perimenopausal at diagnosis with stage IV invasive lobular carcinoma of the left breast (T2, N3, M1) with metastases to left axillary, left supraclavicular and left cervical lymph nodes in addition to widespread metastatic disease to bone , an indeterminate lesion in the liver too small to characterize, and multiple bilateral brain metastases . Disease is ER negative, DC negative, HER-2 overexpressed. Treated with focal radiation therapy to the brain at [facility] October 2017 then whole brain radiation due to STATE PILOT recurrence February 2018. Systemic combination of Pertuzumab, trastuzumab, and Taxotere received total 6 cycles between November - March 2018 with temporary interruption to allow brain radiation. Anemia and GI toxicity appeared to be the main side effects experienced. A bone scan in April 2018 did not report new bony lesions but continued demonstration of diffuse skeletal metastatic disease more confluent. Changed to second line treatment with weekly trastuzumab Abraxane with better tolerance. Comorbid conditions COPD, active smoker, poor dentition. Plan; #1 Concluded focal brain radiation for metastatic disease in the STATE PILOT at [facility] 10/2017 then whole brain radiation due to STATE PILOT recurrence in February 2018. #2 She has extensive widespread bony metastatic disease, that in the spine does not impinge on the spinal cord at presentation, stable #3 Pain management consulted to optimize pain control. #4 Systemic therapy, with Abraxane and Herceptin as of May 07, 2018. #5 Continue bisphosphonate therapy for metastatic bone disease every 3 months in addition to calcium and vitamin D supplement #6 Anemia partly due to metastatic disease to bone marrow and suppression by systemic chemotherapy. No evidence for iron or B12 deficiency found. #7 Echo (/3M of Rx) last was April, showed preserved EF. Next is due July 2018. #8 CA-27-29 not elevated at diagnosis and therefore not helpful and follow-up of disease course. Patient was seen with her , impression and plan discussed. Medications: Prescriptions This Visit Medication Instructions Recorded Dexamethasone 4 mg PO BID #30 tab 10/19/17 Lidocaine/Prilocaine 30 gm TP DAILY PRN PRN #1 cream..g. 10/19/17 [Lidocaine-Prilocaine Cream] Acetaminophen [Tylenol] 325 mg PO PRN PRN 02/13/18 Primary Care Provider: No Primary Care Phys Referring Provider: Carolina Pak MD 06/18/18 0945 <Electronically signed by Carolina Pak MD> Date Carolina Pak MD Cosigner Signature: Date (if applicable) CC: CBC W/DIFF, AUTOMATED Collected: 06/18/2018 Status: C Source: [place] 8:45 AM [facility] REPOSITORY TYPE CODE TESTS RESULT OUT OF RANGE REFERENCE UNITS LAB L100.1000 4.4-11.0 K/mm3 Normal WBC 4.9 LAB L100.1200 4.2-5.4 M/mm3 Low RBC 3.95 LAB L100.1300 12.0-15.0 g/dl Low HGB 11.9 LAB L100.1400 37-47 % Normal HCT 37.9 LAB L100.1500 81-99 fL Normal MCV 95.9 LAB L100.1600 27.0-32.0 pg Normal MCH 30.1 LAB L100.1700 32-36 g/gl Low MCHC 31.4 LAB L100.1810 11.6-14.6 % Normal RDW CV 14.5 LAB L100.1820 35.1-43.9 fl High RDW SD 50.4 LAB L100.1900 150-450 K/mm3 Normal PLT 331 LAB L100.2000 6.2-12.0 fl Normal MPV 9.2 LAB L100.2100 47-70 % Normal NEUT% 60.9 LAB L100.2200 19-41 % Normal LY% 24.6 LAB L100.2300 0-10 % Normal MONO% 10.0 LAB L100.2400 0-5 % Normal EO% 1.0 LAB L100.2500 0-1 % Normal BASO% 1.0 LAB L100.2550 0.0-0.9 % High IM GRAN % 2.500 Result Comment: IG% - Immature Granulocytes (promyelocytes, myelocytes and metamyelocytes) > 1% indicates that a LEFT SHIFT is Present. LAB L100.2620 2.0-7.7 X10 3/uL Normal Absolute Neut 3.0 LAB L100.2720 0.83-4.51 X10 3/ul Normal Absolute Lymph 1.20 LAB L100.9900 Normal PATH REV Reviewed Result Comment: AMENDED REPORT 06/19/18 1406 PATH REV previously reported as: January carmelo Performed By: #### L100.0100 #### [facility] [facility] [place], [address] ONCOLOGY VISIT REPORT Observed: 06/11/2018 Status: F Source: SECOR 9:21 AM [facility] REPOSITORY [facility] [address] [facility] [place] [address] OFFICE VISIT Date of Service: 06/11/18 0840 MR#: [id number] Acct: [id number] Name: LINDSAY ANTUNEZ Dereck Rep #: [id number] : 1965 From: Carolina Pak MD Age/Sex: 53/F Location: [facility] Status: Signed - Problem List (1) Primary cancer of left female breast Status: Chronic (2) Regional lymph node metastasis present Status: Chronic (3) Bone metastases Status: Chronic (4) Brain metastases Status: Chronic (5) Anemia Status: Chronic (6) Fatigue Status: Chronic (7) Anorexia Status: Chronic - Date of Service Date of Service:: 06/11/18 - Chief Complaint Breast cancer - History of Present Illness Patient is a 52-year-old female perimenopausal who never had screening mammographies and became aware of a painless lump in the left breast and a second lump in the left axilla in August 2017. She did not seek any medical care until October 09, 2017 when she developed chest pain and dyspnea. She was seen in [facility] emergency room, diagnosed and treated for pneumonia and referred to surgical consultation when the breast mass was noted on exam. Mammography and ultrasound examination confirmed the palpable abnormalities. On October 12, 2017 she underwent biopsies from the left breast mass and the left axilla that confirmed an invasive lobular carcinoma nuclear grade 3 ER negative, DC negative, HER-2 overexpressed 3+. On October [address] scan of the chest that showed emphysematous changes and diffuse bony lytic lesions throughout the thoracic and lumbar vertebrae and lower cervical segments, lytic lesions in humeral heads bilaterally, sternum, clavicles, left scapula and several ribs bilaterally. CT scan of the abdomen and pelvis showed an indeterminate lesion too small to characterize in the liver but no other visceral disease, widespread bony metastatic disease was again noted. A bone scan October 2017 initial staging showed diffuse skeletal metastatic disease. A bone biopsy October 27, 2017 confirmed metastatic cancer of breast origin. Brain MRI showed small multiple metastatic lesions one in the posterior right internal capsule, multiple bilateral small cerebellar metastases. CA 27-29 not elevated at diagnosis and therefore will not aid in follow-up. Her family history is notable for 2 maternal aunts with breast cancers but no first-degree relatives was breast cancer Treatment: Focal radiation therapy to the sites of disease in the [facility] PILOT at [facility] 10/2017 Whole brain radiation therapy 3000 cGy of 6 MV photons in 10 fractions 02/28/18- 03/13/18. Systemic therapy was held during whole brain radiation. Sxplosknuk-Ygimtwxyqzv-Evjgkhno 11/2017-03/2018 (6 cycles) : Excess toxicity Abraxane Herceptin : May 07/2018- - Past Medical/Social History Past Medical History Past Medical History: Pneumonia Cancer: Breast cancer Other Cancer History: Radiation to brain Social History Social History: No changes Smoking Status Former smoker Review of Systems Constitutional:: Reports: Fatigue. Denies: Fever, Sweats, Weight loss, Appetite change, Chills Cardiovascular:: Reports: Dyspnea on exertion. Denies: Chest pain, Palpitations, Orthopnea, PND, Shortness of breath Respiratory: Reports: Shortness of breath upon exertion. Denies: Cough, Hemoptysis, Shortness of Breath, Wheezing Gastrointestinal:: Reports: Nausea - Infrequent, response to as needed antiemetics, appears to be more related to analgesics than chemotherapy. Denies: Abdominal pain, Vomiting, Diarrhea, Constipation, Hematochezia Genitourinary: Denies: Dysuria, Hematuria, 15, Flank pain Musculoskeletal:: Denies: Back pain, Myalgia, Arthralgia Skin: Denies: Rash, Skin Changes, Wounds Neurological:: Reports: Paresthesias - Occasional. Denies: Headache, Dizziness, Visual changes, Tinnitus, Hearing loss Psychiatric: Denies: Anxiety, Depression, Homicidal Ideations, Suicidal Ideations Vital Signs Height 5 ft 2 in Weight: 63.866 kg - Physical Exam General: Alert, Oriented x3, No apparent distress, - - ECOG 1 HEENT: Atraumatic, PERRLA, EOMI, Normocephalic Oropharynx:: Dry mucosa Neck:: Supple, Trachea midline, - - [place]. Negative for: JVD, bilateral Cardiac:: Regular rate, Regular rhythm, Normal S1, Normal S2. Negative for: Murmur Lungs: Clear to auscultation, Excusion symmetrical. Negative for: Rhonchi, Wheezes Abdomen:: Soft, Non-tender, Non-distended. Negative for: Hepatosplenomegaly Extremities:: Negative for: Cyanosis, Edema Neurological: Neuro grossly intact Skin:: Negative for: Lesions, Rash, Petechiae, Ecchymosis Psychiatric:: Appropriate affect, Euthymic Lymphatics:: Negative for: Cervical lymphadenopathy, Supraclavicular lymphadenopathy, Axillary lymphadenopathy Laboratory Data: Reviewed in EMR Assessment and Plan Assessment: 52-year-old female, perimenopausal at diagnosis with stage IV invasive lobular carcinoma of the left breast (T2, N3, M1) with metastases to left axillary, left supraclavicular and left cervical lymph nodes in addition to widespread metastatic disease to bone , an indeterminate lesion in the liver too small to characterize, and multiple bilateral brain metastases . Disease is ER negative, DC negative, HER-2 overexpressed. Treated with focal radiation therapy to the brain at [facility] October 2017 then whole brain radiation due to STATE PILOT recurrence February 2018. Systemic combination of Pertuzumab, trastuzumab, and Taxotere received total 6 cycles between November - March 2018 with temporary interruption to allow brain radiation. Anemia and GI toxicity appeared to be the main side effects experienced. A bone scan in April 2018 did not report new bony lesions but continued demonstration of diffuse skeletal metastatic disease more confluent. Changed to second line treatment with weekly trastuzumab Abraxane with better tolerance. Comorbid conditions COPD, active smoker, poor dentition. Plan; #1 Concluded focal brain radiation for metastatic disease in the STATE PILOT at [facility] 10/2017 then whole brain radiation due to STATE PILOT recurrence in February 2018. #2 She has extensive widespread bony metastatic disease, that in the spine does not impinge on the spinal cord at presentation, stable #3 Pain management consulted to optimize pain control. #4 Systemic therapy, with Abraxane and Herceptin as of May 07, 2018. #5 Continue bisphosphonate therapy for metastatic bone disease every 3 months in addition to calcium and vitamin D supplement #6 Anemia partly due to metastatic disease to bone marrow and suppression by systemic chemotherapy. No evidence for iron or B12 deficiency found. #7 Echo (/3M of Rx) last was April, showed preserved EF. Next is due July 2018. #8 CA-27-29 not elevated at diagnosis and therefore not helpful and follow-up of disease course. Patient was seen with her , impression and plan discussed. Medications: Prescriptions This Visit Medication Instructions Recorded Dexamethasone 4 mg PO BID #30 tab 10/19/17 Lidocaine/Prilocaine 30 gm TP DAILY PRN PRN #1 cream..g. 10/19/17 [Lidocaine-Prilocaine Cream] Acetaminophen [Tylenol] 325 mg PO PRN PRN 02/13/18 Medications Added to Medication List This Visit 0.9% Normal Saline Med 06/11/18 00:00 Active 250 ml IV UD PRN 0.9% Saline Lock Med 06/11/18 00:00 Active Primary Care Provider: No Primary Care Phys Referring Provider: Carolina Pak MD 06/11/18920 <Electronically signed by Carolina Pak MD> Date Carolina Pak MD Cosigner Signature: Date (if applicable) CC: BETTINA W/DIFF, AUTOMATED Collected: 06/11/2018 Status: F Source: [place] 8:39 AM [facility] REPOSITORY TYPE CODE TESTS RESULT OUT OF RANGE REFERENCE UNITS LAB L100.1000 4.4-11.0 K/mm3 Normal WBC 4.8 LAB L100.1200 4.2-5.4 M/mm3 Low RBC 3.94 LAB L100.1300 12.0-15.0 g/dl Low HGB 11.8 LAB L100.1400 37-47 % Normal HCT 37.5 LAB L100.1500 81-99 fL Normal MCV 95.2 LAB L100.1600 27.0-32.0 pg Normal MCH 29.9 LAB L100.1700 32-36 g/gl Low MCHC 31.5 LAB L100.1810 11.6-14.6 % Normal RDW CV 14.3 LAB L100.1820 35.1-43.9 fl High RDW SD 49.4 LAB L100.1900 150-450 K/mm3 Normal PLT 261 LAB L100.2000 6.2-12.0 fl Normal MPV 9.0 LAB L100.2100 47-70 % Normal NEUT% 62.6 LAB L100.2200 19-41 % Normal LY% 21.6 LAB L100.2300 0-10 % High MONO% 12.9 LAB L100.2400 0-5 % Normal EO% 0.8 LAB L100.2500 0-1 % Normal BASO% 0.6 LAB L100.2550 0.0-0.9 % High IM GRAN % 1.500 Result Comment: IG% - Immature Granulocytes (promyelocytes, myelocytes and metamyelocytes) > 1% indicates that a LEFT SHIFT is Present. LAB L100.2620 2.0-7.7 X10 3/uL Normal Absolute Neut 3.0 LAB L100.2720 0.83-4.51 X10 3/ul Normal Absolute Lymph 1.04 Performed By: #### L100.0100 #### [facility] [address] [facility] [place], [address] ONCOLOGY VISIT REPORT Observed: 06/04/2018 Status: F Source: [place] 9:58 AM [facility] REPOSITORY [facility] [place] [address] OFFICE VISIT Date of Service: 06/04/18 0939 MR#: [id number] Acct: [id number] Name: LINDSAY ANTUNEZ Rep #: [id number] : 1965 From: Carolina Pak MD Age/Sex: 53/F Location: [facility] Status: Signed - Problem List (1) Primary cancer of left female breast Status: Chronic (2) Regional lymph node metastasis present Status: Chronic (3) Bone metastases Status: Chronic (4) Brain metastases Status: Chronic (5) Anemia Status: Chronic (6) Fatigue Status: Chronic (7) Anorexia Status: Chronic - Date of Service Date of Service:: 06/04/18 - Chief Complaint Breast cancer - History of Present Illness Patient is a 52-year-old female perimenopausal who never had screening mammographies and became aware of a painless lump in the left breast and a second lump in the left axilla in August 2017. She did not seek any medical care until October 09, 2017 when she developed chest pain and dyspnea. She was seen in [facility] emergency room, diagnosed and treated for pneumonia and referred to surgical consultation when the breast mass was noted on exam. Mammography and ultrasound examination confirmed the palpable abnormalities. On October 12, 2017 she underwent biopsies from the left breast mass and the left axilla that confirmed an invasive lobular carcinoma nuclear grade 3 ER negative, DC negative, HER-2 overexpressed 3+. On October [address] scan of the chest that showed emphysematous changes and diffuse bony lytic lesions throughout the thoracic and lumbar vertebrae and lower cervical segments, lytic lesions in humeral heads bilaterally, sternum, clavicles, left scapula and several ribs bilaterally. CT scan of the abdomen and pelvis showed an indeterminate lesion too small to characterize in the liver but no other visceral disease, widespread bony metastatic disease was again noted. A bone scan October 2017 initial staging showed diffuse skeletal metastatic disease. A bone biopsy October 27, 2017 confirmed metastatic cancer of breast origin. Brain MRI showed small multiple metastatic lesions one in the posterior right internal capsule, multiple bilateral small cerebellar metastases. CA 27-29 not elevated at diagnosis and therefore will not aid in follow-up. Her family history is notable for 2 maternal aunts with breast cancers but no first-degree relatives was breast cancer Treatment: Focal radiation therapy to the sites of disease in the STATE PILOT at [facility] 10/2017 Whole brain radiation therapy 3000 cGy of 6 MV photons in 10 fractions 02/28/18- 03/13/18. Systemic therapy was held during whole brain radiation. Sdvzkmtltw-Vinogobfoyq-Azrhwlji 11/2017-03/2018 (6 cycles) : Excess toxicity Abraxane Herceptin : May 07/2018- - Past Medical/Social History Past Medical History Past Medical History: Pneumonia Cancer: Breast cancer Other Cancer History: Radiation to brain Social History Social History: No changes Smoking Status Former smoker Review of Systems Constitutional:: Reports: Weakness, Fatigue, - - Able to do ADL independently but at her own pace. Denies: Fever, Sweats, Weight loss, Appetite change, Chills Cardiovascular:: Reports: Dyspnea on exertion. Denies: Chest pain, Palpitations, Orthopnea, PND, Shortness of breath Respiratory: Reports: Shortness of breath upon exertion. Denies: Cough, Hemoptysis, Shortness of Breath, Wheezing Gastrointestinal:: Reports: Diarrhea - One episode, resolved. Denies: Abdominal pain, Nausea, Vomiting, Constipation, Hematochezia Genitourinary: Denies: Dysuria, Hematuria, 15, Flank pain Musculoskeletal:: Denies: Back pain, Myalgia, Arthralgia Skin: Denies: Rash, Skin Changes, Wounds Neurological:: Denies: Headache, Dizziness, Visual changes, Tinnitus, Hearing loss Psychiatric: Denies: Anxiety, Depression, Homicidal Ideations, Suicidal Ideations Vital Signs Height 5 ft 2 in Weight: 63.866 kg - Physical Exam General: Alert, Oriented x3, No apparent distress, - - ECOG 1 HEENT: Atraumatic, PERRLA, EOMI, Normocephalic Oropharynx:: Dry mucosa Neck:: Supple, Trachea midline, - - Port okay. Negative for: JVD, bilateral Cardiac:: Regular rate, Regular rhythm, Normal S1, Normal S2. Negative for: Murmur Lungs: Clear to auscultation, Excusion symmetrical. Negative for: Rhonchi, Wheezes Abdomen:: Soft, Non-tender, Non-distended. Negative for: Hepatosplenomegaly Extremities:: Negative for: Cyanosis, Edema Neurological: Neuro grossly intact Skin:: Negative for: Lesions, Rash, Petechiae, Ecchymosis Psychiatric:: Appropriate affect, Euthymic Lymphatics:: Negative for: Cervical lymphadenopathy, Supraclavicular lymphadenopathy Laboratory Data: Laboratory Tests WBC 4.1 L (4.4-11.0) K/mm3 RBC 4.07 L (4.2-5.4) M/mm3 Hgb 12.3 (12.0-15.0) g/dl Assessment and Plan Assessment: 52-year-old female, perimenopausal at diagnosis with stage IV invasive lobular carcinoma of the left breast (T2, N3, M1) with metastases to left axillary, left supraclavicular and left cervical lymph nodes in addition to widespread metastatic disease to bone , an indeterminate lesion in the liver too small to characterize, and multiple bilateral brain metastases . Disease is ER negative, DC negative, HER-2 overexpressed. Treated with focal radiation therapy to the brain at [facility] October 2017 then whole brain radiation due to STATE PILOT recurrence February 2018. Systemic combination of Pertuzumab, trastuzumab, and Taxotere received total 6 cycles between November - March 2018 with temporary interruption to allow brain radiation. Anemia and GI toxicity appeared to be the main side effects experienced. A bone scan in April 2018 did not report new bony lesions but continued demonstration of diffuse skeletal metastatic disease more confluent. Changed to second line treatment with weekly trastuzumab Abraxane with better tolerance. Comorbid conditions COPD, active smoker, poor dentition. Plan; #1 Concluded focal brain radiation for metastatic disease in the STATE PILOT at [facility] 10/2017 then whole brain radiation due to STATE PILOT recurrence in February 2018. #2 She has extensive widespread bony metastatic disease, that in the spine does not impinge on the spinal cord at presentation #3 Pain management consulted to optimize pain control. #4 Systemic therapy, with Abraxane and Herceptin as of May 07, 2018. #5 Continue bisphosphonate therapy for metastatic bone disease every 3 months in addition to calcium and vitamin D supplement #6 Anemia partly due to metastatic disease to bone marrow and suppression by systemic chemotherapy. No evidence for iron or B12 deficiency found. #7 Echo (/3M of Rx) last was April, showed preserved EF. Next is due July 2018. #8 CA-27-29 not elevated at diagnosis and therefore not helpful and follow-up of disease course. Patient was seen with her , impression and plan discussed. Medications: Prescriptions This Visit Medication Instructions Recorded Dexamethasone 4 mg PO BID #30 tab 10/19/17 Lidocaine/Prilocaine 30 gm TP DAILY PRN PRN #1 cream..g. 10/19/17 [Lidocaine-Prilocaine Cream] Acetaminophen [Tylenol] 325 mg PO PRN PRN 02/13/18 Primary Care Provider: No Primary Care Phys Referring Provider: Carolina Pak MD 06/04/18 0958 <Electronically signed by Carolina Pak MD> Date Carolina Pak MD Cosigner Signature: Date (if applicable) CC: CBC W/DIFF, AUTOMATED Collected: 06/04/2018 Status: F Source: [place] 9:12 AM [facility] [place] REPOSITORY TYPE CODE TESTS RESULT OUT OF RANGE REFERENCE UNITS LAB L100.1000 4.4-11.0 K/mm3 Low WBC 4.1 LAB L100.1200 4.2-5.4 M/mm3 Low RBC 4.07 LAB L100.1300 12.0-15.0 g/dl Normal HGB 12.3 LAB L100.1400 37-47 % Normal HCT 39.5 LAB L100.1500 81-99 fL Normal MCV 97.1 LAB L100.1600 27.0-32.0 pg Normal MCH 30.2 LAB L100.1700 32-36 g/gl Low MCHC 31.1 LAB L100.1810 11.6-14.6 % Normal RDW CV 14.6 LAB L100.1820 35.1-43.9 fl High RDW SD 51.4 LAB L100.1900 150-450 K/mm3 Normal PLT 233 LAB L100.2000 6.2-12.0 fl Normal MPV 8.7 LAB L100.2100 47-70 % Normal NEUT% 61.1 LAB L100.2200 19-41 % Normal LY% 20.8 LAB L100.2300 0-10 % High MONO% 16.2 LAB L100.2400 0-5 % Normal EO% 1.2 LAB L100.2500 0-1 % Normal BASO% 0.5 LAB L100.2550 0.0-0.9 % Normal IM GRAN % 0.200 Result Comment: IG% - Immature Granulocytes (promyelocytes, myelocytes and metamyelocytes) > 1% indicates that a LEFT SHIFT is Present. LAB L100.2620 2.0-7.7 X10 3/uL Normal Absolute Neut 2.5 LAB L100.2720 0.83-4.51 X10 3/ul Normal Absolute Lymph 0.86 Performed By: #### L100.0100 #### [facility] [address] [place], [address] COMPREHENSIVE METABOLIC Collected: 06/04/2018 Status: F Source: [facility] 9:12 AM [facility] [place] REPOSITORY TYPE CODE TESTS RESULT OUT OF RANGE REFERENCE UNITS LAB L501.0100 74-106 mg/dL High GLU 123 Result Comment: Fasting Glucose result from 100 to 125 mg/dL suggests IMPAIRED HOMEOSTASIS per A.D.A. criteria. Please note revised GLUCOSE reference range effective 2017. LAB L501.1000 7-18 mg/dL Low BUN 6 LAB L501.1100 0.55-1.02 mg/dL Normal CREAT,SERUM 0.64 Result Comment: The validity of the calculated GFR AND GFRAA in patients over 70 years has not been determined. Clinical correlation is essential. LAB L501.1110 >60 mL/min Normal EST GFR 103 Result Comment: Non- GFR Calc LAB L501.1115 >60 mL/min Normal EST GFR - AA 125 Result Comment: GFR Calc LAB L501.1255 ml/min Normal Estimated CRCL 82.25 LAB L501.1300 10-20 RATIO Low BUN/CRE 9.3 LAB L501.1500 6.4-8. g/dL Low 2 T PROT 6.2 LAB L501.1800 3.2-5. g/dL Normal 0 ALB 3.3 LAB L501.1950 2.2-4. g/dL Normal 2 GLOB 2.9 LAB L501.2000 0.9-2. RATIO Normal 4 A/G 1.1 LAB L501.2200 8.5-10 mg/dL Normal .1 CA 8.9 LAB L501.4100 15-37 U/L Low AST 13 LAB L501.4305 45-117 U/L Low ALK P 41 LAB L501.4405 13-56 U/L Normal ALT 23 LAB L501.4600 0.20-1 mg/dL Normal .00 T BILI 0.30 LAB L501.5300 136-14 mmol/L Normal 5 NA 143 LAB L501.5600 3.5-5. mmol/L Normal 1 K 3.8 LAB L501.5900 98-107 mmol/L Normal CL 105 LAB L501.6100 21.0-3 mmol/L Normal 2.0 CO2 29.0 LAB L501.6200 5-15 Normal GAP 9 Performed By: #### L500.4050 #### [facility] [address] [facility] [place], [address] ONCOLOGY VISIT REPORT Observed: 05/21/2018 Status: F Source: [facility] 11:17 AM [facility] REPOSITORY [facility] [address] [place] [address] OFFICE VISIT Date of Service: 05/21/18 1025 MR#: [id number] Acct: [id number] Name: LINDSAY ANTUNEZ Rep #: [id number] : 1965 From: Carolina Pak MD Age/Sex: 53/F Location: [facility] Status: Signed - Problem List (1) Primary cancer of left female breast Status: Chronic (2) Regional lymph node metastasis present Status: Chronic (3) Bone metastases Status: Chronic (4) Brain metastases Status: Chronic (5) Anemia Status: Chronic (6) Fatigue Status: Chronic (7) Anorexia Status: Chronic - Date of Service Date of Service:: 05/21/18 - Chief Complaint Breast cancer - History of Present Illness Patient is a 52-year-old female perimenopausal who never had screening mammographies and became aware of a painless lump in the left breast and a second lump in the left axilla in August 2017. She did not seek any medical care until October 09, 2017 when she developed chest pain and dyspnea. She was seen in [facility] emergency room, diagnosed and treated for pneumonia and referred to surgical consultation when the breast mass was noted on exam. Mammography and ultrasound examination confirmed the palpable abnormalities. On October 12, 2017 she underwent biopsies from the left breast mass and the left axilla that confirmed an invasive lobular carcinoma nuclear grade 3 ER negative, DC negative, HER-2 overexpressed 3+. On October [address] scan of the chest that showed emphysematous changes and diffuse bony lytic lesions throughout the thoracic and lumbar vertebrae and lower cervical segments, lytic lesions in humeral heads bilaterally, sternum, clavicles, left scapula and several ribs bilaterally. CT scan of the abdomen and pelvis showed an indeterminate lesion too small to characterize in the liver but no other visceral disease, widespread bony metastatic disease was again noted. A bone scan October 2017 initial staging showed diffuse skeletal metastatic disease. A bone biopsy October 27, 2017 confirmed metastatic cancer of breast origin. Brain MRI showed small multiple metastatic lesions one in the posterior right internal capsule, multiple bilateral small cerebellar metastases. CA 27-29 not elevated at diagnosis and therefore will not aid in follow-up. Her family history is notable for 2 maternal aunts with breast cancers but no first-degree relatives was breast cancer Treatment: Focal radiation therapy to the sites of disease in the STATE PILOT at [facility] 10/2017 Whole brain radiation therapy 3000 cGy of 6 MV photons in 10 fractions 02/28/18- 03/13/18. Systemic therapy was held during whole brain radiation. Laqakrtnbt-Ovbxcnzplwp-Xvzjxlxt 11/2017-03/2018 (6 cycles) : Excess toxicity Abraxane Herceptin : May 07/2018- - Past Medical/Social History Past Medical History Past Medical History: Pneumonia Cancer: Breast cancer Other Cancer History: Radiation to brain Social History Social History: No changes Smoking Status Former smoker Review of Systems Constitutional:: Reports: Weakness, Fatigue - Overall tolerating current treatment better than triple therapy, Weight gain, Appetite change - Improved appetite. Denies: Fever, Sweats, Weight loss, Chills Cardiovascular:: Denies: Chest pain, Palpitations, Dyspnea on exertion, Orthopnea, PND, Shortness of breath Respiratory: Denies: Cough, Hemoptysis, Shortness of Breath, Wheezing Gastrointestinal:: Reports: Nausea - Very infrequent, and improvement. Denies: Abdominal pain, Vomiting, Diarrhea, Constipation, Hematochezia Genitourinary: Denies: Dysuria, Hematuria, 15, Flank pain Musculoskeletal:: Reports: Back pain - Controlled. Denies: Myalgia, Arthralgia Skin: Denies: Rash, Skin Changes, Wounds Neurological:: Denies: Headache, Dizziness, Visual changes, Tinnitus, Hearing loss Psychiatric: Denies: Anxiety, Depression, Homicidal Ideations, Suicidal Ideations Vital Signs Height 5 ft 2 in Weight: 62.777 kg - Physical Exam General: Alert, Oriented x3, No apparent distress, - - ECOG 1-2 HEENT: Atraumatic, PERRLA, EOMI, Normocephalic Oropharynx:: Dry mucosa Neck:: Supple, Trachea midline, - - Port okay. Negative for: JVD, bilateral Cardiac:: Regular rate, Regular rhythm, Normal S1, Normal S2. Negative for: Murmur Lungs: Clear to auscultation, Excusion symmetrical. Negative for: Rhonchi, Wheezes Abdomen:: Soft, Non-tender, Non-distended. Negative for: Hepatosplenomegaly Extremities:: Negative for: Cyanosis, Edema Neurological: Neuro grossly intact Skin:: Negative for: Lesions, Rash, Petechiae, Ecchymosis Psychiatric:: Appropriate affect, Euthymic Lymphatics:: Negative for: Cervical lymphadenopathy, Supraclavicular lymphadenopathy Laboratory Data: Laboratory Tests WBC 5.4 (4.4-11.0) K/mm3 RBC 3.55 L (4.2-5.4) M/mm3 Assessment and Plan Assessment: 52-year-old female, perimenopausal with stage IV invasive lobular carcinoma of the left breast (T2, N3, M1) with metastases to left axillary, left supraclavicular and left cervical lymph nodes in addition to widespread metastatic disease to bone , an indeterminate lesion in the liver too small to characterize, and multiple bilateral low- volume brain metastases without visible edema. Disease is ER negative, DC negative, HER-2 overexpressed. Treated with focal radiation therapy to the brain at [facility] October 2017 then whole brain radiation due to STATE PILOT recurrence February 2018. Systemic combination of Pertuzumab, trastuzumab, and Taxotere received total 6 cycles between November - March 2018 with temporary interruption to allow brain radiation. Anemia and GI toxicity appeared to be the main side effects experienced. A bone scan in April 2018 did not report new bony lesions but continued demonstration of diffuse skeletal metastatic disease more confluent. Changed to second line treatment with trastuzumab Abraxane with better tolerance. Comorbid conditions COPD, active smoker, poor dentition. Plan; #1 Concluded focal brain radiation for metastatic disease in the STATE PILOT at [facility] 10/2017 then whole brain radiation due to STATE PILOT recurrence in February 2018. #2 She has extensive widespread bony metastatic disease, that in the spine does not impinge on the spinal cord at presentation #3 Pain management consulted to optimize pain control. #4 Systemic therapy, with increasing anemia and GI toxicities possibly from first line treatment and uncertainty whether she has progressive disease therefore switched to second line treatment with Abraxane and Herceptin as of May 07, 2018. #5 Continue bisphosphonate therapy for metastatic bone disease every 3 months in addition to calcium and vitamin D supplement #6 Anemia partly due to metastatic disease to bone marrow and suppression by systemic chemotherapy. No evidence for iron or B12 deficiency found. #7 Echo (/3M of Rx) last was April, showed preserved EF. Next is due July 2018. #8 CA-27-29 not elevated at diagnosis and therefore not helpful and follow-up of disease course. #9 Upper GI dyspeptic symptoms and nausea appears to be related to analgesics use. Patient was seen with her , impression and plan discussed. Medications: Prescriptions This Visit Medication Instructions Recorded Dexamethasone 4 mg PO BID #30 tab 10/19/17 Lidocaine/Prilocaine 30 gm TP DAILY PRN PRN #1 cream..g. 10/19/17 Primary Care Provider: No Primary Care Phys Referring Provider: Carolina Pak MD 05/21/18 1117 <Electronically signed by Carolina Pak MD> Date Carolina Pak MD Cosigner Signature: Date (if applicable) CC: CBC W/DIFF, AUTOMATED Collected: 05/21/2018 Status: F Source: [facility] 10:12 AM [facility] REPOSITORY TYPE CODE TESTS RESULT OUT OF RANGE REFERENCE UNITS LAB L100.1000 4.4-11.0 K/mm3 Normal WBC 5.4 LAB L100.1200 4.2-5.4 M/mm3 Low RBC 3.55 LAB L100.1300 12.0-15.0 g/dl Low HGB 10.8 LAB L100.1400 37-47 % Low HCT 34.9 LAB L100.1500 81-99 fL Normal MCV 98.3 LAB L100.1600 27.0-32.0 pg Normal MCH 30.4 LAB L100.1700 32-36 g/gl Low MCHC 30.9 LAB L100.1810 11.6-14.6 % High RDW CV 14.8 LAB L100.1820 35.1-43.9 fl High RDW SD 53.1 LAB L100.1900 150-450 K/mm3 Normal PLT 257 LAB L100.2000 6.2-12.0 fl Normal MPV 8.9 LAB L100.2100 47-70 % Normal NEUT% 66.9 LAB L100.2200 19-41 % Low LY% 18.7 LAB L100.2300 0-10 % High MONO% 11.6 LAB L100.2400 0-5 % Normal EO% 1.3 LAB L100.2500 0-1 % Normal BASO% 0.4 LAB L100.2550 0.0-0.9 % High IM GRAN % 1.100 Result Comment: IG% - Immature Granulocytes (promyelocytes, myelocytes and metamyelocytes) > 1% indicates that a LEFT SHIFT is Present. LAB L100.2620 2.0-7.7 X10 3/uL Absolute Neut Normal 3.6 LAB L100.2720 0.83-4.51 X10 3/ul Absolute Lymph Normal 1.00 LAB L100.4700 REACTIVE LYMPH Normal RARE LAB L100.5500 ADEQ PLT EST Normal ADEQUATE LAB L100.7600 HYPOCHROMASIA Normal RARE Performed By: #### L100.0100 #### [facility] [address] [place], [address] ONCOLOGY FOLLOW-UP Observed: 05/15/2018 Status: F Source: [facility] VISIT 4:20 PM [facility] REPOSITORY [facility] Medical Records Department [address] [place] [address] Oncology Follow-Up Visit 05/15/18 1555 MR#: [id number] Acct: [id number] Name: LINDSAY ANTUNEZ Rep #: [id number] : 1965 53 From: Kev Schroeder DO PCP: Care Physician, No Primary Status: REG RCR Y Location: [facility] Date of Service: 05/15/18 Last Clinic Visit: 04/10/18 Diagnosis: Lindsay Antunez is a 52-year-old female diagnosed with widely 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 From 11/14/17 - 11/16/17 she received FSRT consisting of 2400 cGy delivered in 3 fractions to the 10 STATE PILOT lesions noted on the MRI. Repeat MRI brain 01/29/18 showed evidence for multifocal disease progression within the STATE PILOT. Plan was made to complete whole brain radiation therapy as further focal therapy was not felt to be an option given the numerous sites of disease in the brain. From 02/28/18 - 03/13/18 she received 3000 cGy in 10 fractions to the whole brain. History of Present Illness: 10/09/2017: Patient was seen in the emergency room due to left shoulder pain radiating to the right shoulder with right-sided chest pain as well as left nipple retraction with left breast discharge. 10/10/2017: Bilateral diagnostic mammogram was performed and demonstrated a 2.1 x 2.4 cm spiculated mass in the retroareolar region of the left breast which corresponds to the palpable abnormality, there are diffuse microcalcifications seen within it, there is also evidence of left axillary lymphadenopathy, no other significant abnormalities were identified. BI-RADS 5. 10/12/2017: CT chest was completed and showed evidence for diffuse lytic lesions seen throughout the thoracic and lumbar vertebrae, lucent lesions are also identified in the lower cervical segment as well as the humeral heads bilaterally. There is evidence of lytic lesions noted in the sternum as well as along the medial aspect of the clavicles as well as the left scapula. Also suspected or lytic lesions that are very small and several bilateral ribs. A left breast mass is identified as well as several enlarged left axillary lymph nodes. There is also a few scattered subcutaneous tissue nodules noted. 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 10/20/2017: Patient completed brain MRI with contrast which demonstrated evidence for 5 lesions consistent with metastatic disease for lesion is located within the cerebellum and the fifth lesion located in the posterior internal capsule on the right side. There is minimal associated edema. There is also heterogeneous low signal within the calvarium present which may represent an infiltrative bone marrow process though no focal calvarial lesions are noted, upper cervical spine shows multiple areas of osseous enhancement consistent with metastatic disease. 10/20/2017: MRI of the cervical thoracic and lumbar spine was completed which demonstrated evidence for diffuse osseous metastatic disease with a lytic appearance, no pathologic compression fractures or spinal cord compression is identified, no paraspinal masses are identified, there are no intra-canalicular lesions seen. 10/25/2017: CT abdomen and pelvis with contrast was performed which demonstrated evidence for diffuse osseous disease within the thoracic and lumbar spine as well as the sacrum and pelvis and both proximal femora. There is a single 7 mm hypodense lesion in the right liver, but no evidence for other sites of metastatic disease. 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 From 11/14/17 - 11/16/17: Patient received FSRT consisting of 2400 cGy delivered in 3 fractions to the 10 STATE PILOT lesions noted on the MRI. 11/29/17: Initiated Pertuzumab/Trastuzumab/Taxotere 01/29/2018: MRI brain was completed which demonstrated evidence for increasing number of metastatic lesions when compared to the prior study. 01/29/2018: Chest x-ray of the lumbar and thoracic spine was completed. There is diffuse osseous metastatic disease and chronic appearing compression fractures of T11, T12, and L1. 02/09/2018: Patient was evaluated by [facility] in follow- up after completing brain FSRT. Upon review, the previously treated lesions were stable to improved but there were multiple new punctate lesions noted especially in the cerebellum. Recommendation was to complete whole brain radiation therapy. From 02/28/18 03/13/18: Received 3000 cGy in 10 fractions to the whole brain with concurrent memantine. 04/23/2018: MRI brain was performed which demonstrated mild chronic periventricular white matter and pontine ischemic changes without evidence for acute infarct. Persistent small cerebellar metastasis however these demonstrate interval improvement in the number of metastatic lesions since the previous exam. 04/26/2018: Bone scan demonstrated multifocal increased radiopharmaceutical concentration remaining evident throughout the appendicular and axial skeletal structures. There is an increase in tracer concentration currently defined in the bilateral elbow and wrist articulations. 04/29/2018: CT abdomen and pelvis with contrast was performed which demonstrated diffuse wall thickening and inflammation of the terminal ileum suggesting terminal ileitis, enlargement of left upper abdominal wall soft tissue nodule, diffuse lytic and sclerotic lesions throughout the bones consistent with metastatic disease, likely due to timing of the IV bolus the previously noted nodules in the liver are difficult to visualize on this exam. 04/29/18-05/01/18: Admitted with intractable nausea and vomiting with diarrhea and found to have findings consistent with sepsis. Patient was treated with IV fluids, antibiotics, pain medications, and antiemetics and was discharged in stable condition. 05/07/18: Due to increase toxicity and uncertainty to whether she has progressive disease treatment was switched to second line therapy, Abraxane/Herceptin. Radiation Treatment History: 1) From 11/14/17 - 11/16/17: Patient received FSRT consisting of 2400 cGy delivered in 3 fractions to the 10 STATE PILOT lesions noted on the MRI. 2) From 02/28/18 - 03/13/18: Received 3000 cGy in 10 fractions to the whole brain with concurrent memantine. Denies history of collagen vascular disease and denies having a pacemaker. Interval History: Patient reports for a follow-up about 2 months after completing whole brain radiation therapy and to review recent MRI imaging. A couple weeks ago she was admitted with intractable nausea and vomiting and also diarrhea and found to have finding consistent with sepsis and after treatment with IV fluids, antibiotics, pain medications, and anti-emetics she was discharged after 2 days. She is feeling much better at this time and she believes this was mostly related to having the fentanyl patch as everything resolved removal of her patch. Currently she is on a different pain medication patch and tolerating it well. She is switched therapies to Abraxane/Herceptin as result of GI related toxicities and appears to be doing better since starting a week ago. She reports having mild occasional headache in the frontal sinus region and occasionally has lightheadedness upon standing which quickly resolves. She denies having diplopia, ataxia, focal weakness/numbness, current nausea/vomiting, clumsiness/incoordination, or changes in memory or cognition. She does report continued hair loss and had mild scalp irritation which has resolved. She reports taking memantine twice daily without difficulty. Stable energy but has a poor appetite but no weight loss. She has persistent back pain located in the lumbar spine, this pain is about a 2 out of 10 when she is taking her pain medication and can get up to an 8-9 out of 10 when she is not. Pain is not related to positioning but does get worse when she is up walking for an extended period. She denies any radiation of her pain and does not have any numbness/tingling or incontinence. She can complete all ADLs without difficulty. She denies having any other problems or concerns at this time. I have reviewed the medical, surgical, and other pertinent history in details and have updated medication and allergy information in the electronic medical record. Review of Systems: A 12-point review of systems was completed and was negative except for what is noted in the HPI/Interval History and by the nurse. Height/Weight/BMI: Height: 5 ft 2 in Weight: 138 lbs BMI: 22.3 Vital Signs Temperature 98.1 F 05/15/18 10:11 Temperature Source Oral 05/15/18 10:11 Pulse Rate 95 05/15/18 10:11 Respiratory Rate 16 05/15/18 10:11 Respiratory Pattern Normal 01/18/18 15:22 Physical Exam: ECO KARNOFSKY SCORE: 80% CONSTITUTIONAL: Well-developed, well-nourished, and in no apparent distress. HEENT: Mucous membranes mildly dry. No evidence of thrush or lesions within the visualized oropharynx or oral cavity. Complete alopecia, no scalp erythema. No trismus. Pupils are equal, round, and reactive to light and accommodation. Extraocular movements are intact. Sclerae are anicteric. NECK: Supple,with no thyromegaly, and non-tender. Trachea midline. No cervical or supraclavicular adenopathy noted. CARDIAC: Regular rate and rhythm. Normal S1, S2. No murmurs, rubs, or gallops. PULMONARY/CHEST: Lungs are clear to auscultation and percussion bilaterally. No wheezes, rhonchi, or crackles noted. No increased work of breathing. ABDOMINAL: Abdomen soft, non-tender, non-distended. No hepatomegaly. Normoactive bowel sounds in all four quadrants. No guarding, rebound. BACK: Straight and aligned. No CVA tenderness. Tenderness to palpation is noted in the axial skeleton involving the lumbar/sacral region as well as the lower thoracic region, otherwise nontender to palpation. EXTREMITIES: Full range of motion in all four extremities, with normal strength equally and symmetrically. No evidence of edema. No clubbing. NEUROLOGICAL EXAM: Alert and oriented x 3. Cranial nerves II through XII are grossly intact. No focal neurological deficit. Speech is fluent. There is no upper or lower extremity sensory deficit or motor deficit. Muscle strength is 5/5 in all muscle groups. Gait and posture are steady. No dysmetria. Imaging: As per HPI Reviewed the results of her MRI of the brain completed 04/23/2018 as well as the recent CT abdomen pelvis and bone scan. 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 From 11/14/17 - 11/16/17 she received FSRT consisting of 2400 cGy delivered in 3 fractions to the 10 STATE PILOT lesions noted on the MRI. Repeat MRI brain 01/29/18 showed evidence for multifocal disease progression within the STATE PILOT. Plan was made to complete whole brain radiation therapy as further focal therapy was not felt to be an option given the numerous sites of disease in the brain. From 02/28/18 - 03/13/18 she received 3000 cGy in 10 fractions to the whole brain. Reviewed the imaging findings which demonstrate improvement in the STATE PILOT metastases as demonstrated on the MRI from 04/23/2018. Due to suspected disease progression extracranially as well as severe GI related toxicities, she has switched systemic therapies to second line treatment and is tolerating this well so far. On exam she has lumbar spine pain at about 4 levels which does not radiate Plan: Patient returns for a follow-up 2 months after completing whole brain radiation therapy for routine visit and to review MRI brain findings. She is taking memantine 5 mg twice daily and reports normal short-term memory and noted deficits in cognition, we will continue this for 6 months. She was not able to tolerate 10 mg twice daily due to toxicity. Recommend completing brain MRI in 2 months to maintain close follow-up and ensure that she does not have disease progression. She does clinically have pain in the axial spine related to bone metastases, on imaging she has lytic bone lesions present at every level and throughout the pelvis. I reviewed the use of palliative radiation therapy for bone metastases and discuss some of the acute and chronic toxicities from this treatment in the lumbar spine. I reviewed the likelihood of benefit with partial pain response at 70-80% complete pain response at about 20-30%. At this time I would not recommend treatment as she has very diffuse disease that is largely pain controlled with medical therapy and she is continuing bisphosphonate therapy for bone strengthening. Furthermore, I discussed that palliative radiation therapy to this area could significantly impact her bone marrow which could impact her ability to receive further systemic therapy. I will plan to have her return for MRI in 2 months and then follow-up in clinic a few days later. She was instructed to call with any further questions or concerns in the interim if her pain level in her back should become more severe then we could always reconsider palliative radiation therapy. I was able to answer all the patient's questions and concerns and she was in agreement with our plan. Kev Schroeder DO, MS Demurrage Agent, Department of Radiation Oncology [facility] 05/15/18 1158 <Electronically signed by Kev Schreoder DO> Date Kev Schroeder DO CC: Carolina Pak MD Signed ONCOLOGY VISIT REPORT Observed: 05/14/2018 Status: F Source: [facility] 10:53 AM [facility] [place] REPOSIT[facility] [place] [address] OFFICE VISIT Date of Service: 05/14/18 1009 MR#: [id number] Acct: [id number] Name: HARMONYLINDSAY Dereck Rep #: [id number] : 1965 From: Carolina Pak MD Age/Sex: 53/F Location: [facility] Status: Signed - Problem List (1) Primary cancer of left female breast Status: Chronic (2) Regional lymph node metastasis present Status: Chronic (3) Bone metastases Status: Chronic (4) Brain metastases Status: Chronic (5) Anemia Status: Chronic (6) Fatigue Status: Chronic (7) Anorexia Status: Chronic - Date of Service Date of Service:: 05/14/18 - Chief Complaint Breast cancer - History of Present Illness Patient is a 52-year-old female perimenopausal who never had screening mammographies and became aware of a painless lump in the left breast and a second lump in the left axilla in August 2017. She did not seek any medical care until October 09, 2017 when she developed chest pain and dyspnea. She was seen in [facility] emergency room, diagnosed and treated for pneumonia and referred to surgical consultation when the breast mass was noted on exam. Mammography and ultrasound examination confirmed the palpable abnormalities. On October 12, 2017 she underwent biopsies from the left breast mass and the left axilla that confirmed an invasive lobular carcinoma nuclear grade 3 ER negative, DC negative, HER-2 overexpressed 3+. On October [address] scan of the chest that showed emphysematous changes and diffuse bony lytic lesions throughout the thoracic and lumbar vertebrae and lower cervical segments, lytic lesions in humeral heads bilaterally, sternum, clavicles, left scapula and several ribs bilaterally. CT scan of the abdomen and pelvis showed an indeterminate lesion too small to characterize in the liver but no other visceral disease, widespread bony metastatic disease was again noted. A bone scan October 2017 initial staging showed diffuse skeletal metastatic disease. A bone biopsy October 27, 2017 confirmed metastatic cancer of breast origin. Brain MRI showed small multiple metastatic lesions one in the posterior right internal capsule, multiple bilateral small cerebellar metastases. CA 27-29 not elevated at diagnosis and therefore will not aid in follow-up. Her family history is notable for 2 maternal aunts with breast cancers but no first-degree relatives was breast cancer Treatment: Focal radiation therapy to the sites of disease in the STATE PILOT at [facility] 10/2017 Whole brain radiation therapy 3000 cGy of 6 MV photons in 10 fractions 02/28/18- 03/13/18. Systemic therapy was held during whole brain radiation. Ratsujiqkm-Rtypdsuzsbt-Mycrwowi 11/2017-03/2018 (6 cycles) : Excess toxicity Abraxane Herceptin : May 07/2018- - Past Medical/Social History Past Medical History Past Medical History: Pneumonia Cancer: Breast cancer Other Cancer History: Radiation to brain Social History Social History: No changes Smoking Status Former smoker Review of Systems Constitutional:: Reports: Weakness, Fatigue - Less than the prior month. Denies: Fever, Sweats, Weight loss, Appetite change, Chills Cardiovascular:: Denies: Chest pain, Palpitations, Dyspnea on exertion, Orthopnea, PND, Shortness of breath Respiratory: Denies: Cough, Hemoptysis, Shortness of Breath, Wheezing Gastrointestinal:: Reports: Diarrhea - 1 day of diarrhea, resolved. Denies: Abdominal pain, Nausea, Vomiting, Constipation, Hematochezia Genitourinary: Denies: Dysuria, Hematuria, 15, Flank pain Musculoskeletal:: Reports: Back pain - Controlled. Denies: Myalgia, Arthralgia Skin: Denies: Rash, Skin Changes, Wounds Neurological:: Denies: Headache, Dizziness, Visual changes, Tinnitus, Hearing loss Psychiatric: Denies: Anxiety, Depression, Homicidal Ideations, Suicidal Ideations Vital Signs Height 5 ft 2 in Weight: 61.144 kg - Physical Exam General: Alert, Oriented x3, No apparent distress, - - ECOG 1-2 HEENT: Atraumatic, PERRLA, EOMI, Normocephalic Oropharynx:: Dry mucosa Neck:: Supple, Trachea midline, - - Port okay. Negative for: JVD, bilateral Cardiac:: Regular rate, Regular rhythm, Normal S1, Normal S2. Negative for: Murmur Lungs: Clear to auscultation, Excusion symmetrical. Negative for: Rhonchi, Wheezes Abdomen:: Soft, Non-tender, Non-distended. Negative for: Hepatosplenomegaly Extremities:: Negative for: Cyanosis, Edema Neurological: Neuro grossly intact Skin:: Negative for: Lesions, Rash, Petechiae, Ecchymosis Psychiatric:: Appropriate affect, Euthymic Lymphatics:: Negative for: Cervical lymphadenopathy, Supraclavicular lymphadenopathy Laboratory Data: Pending, to review Assessment and Plan Assessment: 52-year-old female, perimenopausal with stage IV invasive lobular carcinoma of the left breast (T2, N3, M1) with metastases to left axillary, left supraclavicular and left cervical lymph nodes in addition to widespread metastatic disease to bone , an indeterminate lesion in the liver too small to characterize, and multiple bilateral low- volume brain metastases without visible edema. Disease is ER negative, DC negative, HER-2 overexpressed. Treated with focal radiation therapy to the brain at [facility] October 2017 then whole brain radiation due to STATE PILOT recurrence February 2018. Systemic combination of Pertuzumab, trastuzumab, and Taxotere received total 6 cycles between November - March 2018 with temporary interruption to allow brain radiation. Anemia and GI toxicity appeared to be the main side effects experienced. A bone scan in April 2018 did not report new bony lesions but continued demonstration of diffuse skeletal metastatic disease more confluent. Comorbid conditions COPD, active smoker, poor dentition. Plan; #1 Concluded focal brain radiation for metastatic disease in the STATE PILOT at [facility] 10/2017 then whole brain radiation due to STATE PILOT recurrence in February 2018. #2 She has extensive widespread bony metastatic disease, that in the spine does not impinge on the spinal cord at presentation #3 Pain management consulted to optimize pain control. #4 Systemic therapy, with increasing anemia and GI toxicities possibly from first line treatment and uncertainty whether she has progressive disease therefore switched to second line treatment with Abraxane and Herceptin as of May 07, 2018. #5 Continue bisphosphonate therapy for metastatic bone disease every 3 months in addition to calcium and vitamin D supplement #6 Anemia partly due to metastatic disease to bone marrow and suppression by systemic chemotherapy. No evidence for iron or B12 deficiency found. #7 Echo (/3M of Rx) last was April, showed preserved EF. Next is due July 2018. #8 CA-27-29 not elevated at diagnosis and therefore not helpful and follow-up of disease course. #9 Upper GI dyspeptic symptoms and nausea appears to be related to analgesics use, whereas diarrhea may be related to toxicities from Taxotere and Pertuzumab. We will continue to watch now treatment has changed. Patient was seen with her , impression and plan discussed. Medications: Prescriptions This Visit Medication Instructions Recorded Dexamethasone 4 mg PO BID #30 tab 10/19/17 Lidocaine/Prilocaine 30 gm TP DAILY PRN PRN #1 cream..g. 10/19/17 [Lidocaine-Prilocaine Cream] Primary Care Provider: No Primary Care Phys Referring Provider: Carolina Pak MD 05/14/18 2425 <Electronically signed by Carolina Pak MD> Date Carolina Pak MD Cosigner Signature: Date (if applicable) CC: CBC W/DIFF, AUTOMATED Collected: 05/14/2018 Status: F Source: [place] 10:15 AM [facility] REPOSITORY TYPE CODE TESTS RESULT OUT OF RANGE REFERENCE UNITS LAB L100.1000 4.4-11.0 K/mm3 Normal WBC 5.0 LAB L100.1200 4.2-5.4 M/mm3 Low RBC 3.78 LAB L100.1300 12.0-15.0 g/dl Low HGB 11.4 LAB L100.1400 37-47 % Normal HCT 37.3 LAB L100.1500 81-99 fL Normal MCV 98.7 LAB L100.1600 27.0-32.0 pg Normal MCH 30.2 LAB L100.1700 32-36 g/gl Low MCHC 30.6 LAB L100.1810 11.6-14.6 % Normal RDW CV 14.5 LAB L100.1820 35.1-43.9 fl High RDW SD 51.7 LAB L100.1900 150-450 K/mm3 Normal PLT 286 LAB L100.2000 6.2-12.0 fl Normal MPV 9.1 LAB L100.2100 47-70 % Normal NEUT% 64.8 LAB L100.2200 19-41 % Low LY% 18.5 LAB L100.2300 0-10 % High MONO% 13.3 LAB L100.2400 0-5 % Normal EO% 1.2 LAB L100.2500 0-1 % Normal BASO% 0.8 LAB L100.2550 0.0-0.9 % High IM GRAN % 1.400 Result Comment: IG% - Immature Granulocytes (promyelocytes, myelocytes and metamyelocytes) > 1% indicates that a LEFT SHIFT is Present. LAB L100.2620 2.0-7.7 X10 3/uL Normal Absolute Neut 3.3 LAB L100.2720 0.83-4.51 X10 3/ul Normal Absolute Lymph 0.93 Performed By: #### L100.0100 #### [facility] [address] [place], [address] ONCOLOGY VISIT REPORT Observed: 05/07/2018 Status: F Source: SECOR 9:12 AM [facility] [place] REPOSIT[facility] [address] [place] [address] OFFICE VISIT Date of Service: 05/07/18 0906 MR#: [id number] Acct: [id number] Name: LINDSAY ANTUNEZ Rep #: [id number] : 1965 From: Carolina Pak MD Age/Sex: 52/F Location: ONC Status: Signed - Problem List (1) Primary cancer of left female breast Status: Chronic (2) Regional lymph node metastasis present Status: Chronic (3) Bone metastases Status: Chronic (4) Brain metastases Status: Chronic (5) Anemia Status: Chronic (6) Fatigue Status: Chronic (7) Anorexia Status: Chronic - Date of Service Date of Service:: 05/07/18 - Chief Complaint Breast cancer - History of Present Illness Patient is a 52-year-old female perimenopausal who never had screening mammographies and became aware of a painless lump in the left breast and a second lump in the left axilla in August 2017. She did not seek any medical care until October 09, 2017 when she developed chest pain and dyspnea. She was seen in [facility] emergency room, diagnosed and treated for pneumonia and referred to surgical consultation when the breast mass was noted on exam. Mammography and ultrasound examination confirmed the palpable abnormalities. On October 12, 2017 she underwent biopsies from the left breast mass and the left axilla that confirmed an invasive lobular carcinoma nuclear grade 3 ER negative, DC negative, HER-2 overexpressed 3+. On October [address] scan of the chest that showed emphysematous changes and diffuse bony lytic lesions throughout the thoracic and lumbar vertebrae and lower cervical segments, lytic lesions in humeral heads bilaterally, sternum, clavicles, left scapula and several ribs bilaterally. CT scan of the abdomen and pelvis showed an indeterminate lesion too small to characterize in the liver but no other visceral disease, widespread bony metastatic disease was again noted. A bone scan October 2017 initial staging showed diffuse skeletal metastatic disease. A bone biopsy October 27, 2017 confirmed metastatic cancer of breast origin. Brain MRI showed small multiple metastatic lesions one in the posterior right internal capsule, multiple bilateral small cerebellar metastases. CA 27-29 not elevated at diagnosis and therefore will not aid in follow-up. Her family history is notable for 2 maternal aunts with breast cancers but no first-degree relatives was breast cancer Treatment: Focal radiation therapy to the sites of disease in the STATE PILOT at [facility] 10/2017 Whole brain radiation therapy 3000 cGy of 6 MV photons in 10 fractions 02/28/18- 03/13/18. Systemic therapy was held during whole brain radiation. Tzpeocxypj-Cfailfofhen-Olbejiwk 11/2017-03/2018 (6 cycles) : Excess toxicity Abraxane Herceptin : May 07/2018- - Past Medical/Social History Past Medical History Past Medical History: Pneumonia Cancer: Breast cancer Other Cancer History: Radiation to brain Social History Social History: No changes Smoking Status Former smoker Review of Systems Constitutional:: Reports: Weakness, Fatigue. Denies: Fever, Sweats, Weight loss, Appetite change, Chills Cardiovascular:: Denies: Chest pain, Palpitations, Dyspnea on exertion, Orthopnea, PND, Shortness of breath Respiratory: Denies: Cough, Hemoptysis, Shortness of Breath, Wheezing Gastrointestinal:: Reports: Nausea - Resolved with discontinuation of fentanyl, Diarrhea - Recovering. Denies: Abdominal pain, Vomiting, Constipation, Hematochezia Genitourinary: Denies: Dysuria, Hematuria, 15, Flank pain Musculoskeletal:: Reports: Back pain - And ribs pain control is fair. Denies: Myalgia, Arthralgia Skin: Reports: Lesions - Chronic multiple skin lesions unchanged. Denies: Rash, Skin Changes, Wounds Neurological:: Denies: Headache, Dizziness, Visual changes, Tinnitus, Hearing loss Psychiatric: Denies: Anxiety, Depression, Homicidal Ideations, Suicidal Ideations Vital Signs Height 5 ft 2 in Weight: 61.144 kg - Physical Exam General: Alert, Oriented x3, No apparent distress, - - ECOG 1-2 HEENT: Atraumatic, PERRLA, EOMI, Normocephalic Oropharynx:: Dry mucosa Neck:: Supple, Trachea midline, - - Port okay. Negative for: JVD, bilateral Cardiac:: Regular rate, Regular rhythm, Normal S1, Normal S2. Negative for: Murmur Lungs: Clear to auscultation, Excusion symmetrical. Negative for: Rhonchi, Wheezes Abdomen:: Soft, Non-tender, Non-distended. Negative for: Hepatosplenomegaly Extremities:: Negative for: Cyanosis, Edema Neurological: Neuro grossly intact Skin:: Negative for: Lesions, Rash, Petechiae, Ecchymosis Psychiatric:: Appropriate affect, Euthymic Lymphatics:: Negative for: Cervical lymphadenopathy, Supraclavicular lymphadenopathy, Axillary lymphadenopathy Laboratory Data: Laboratory Tests WBC 6.6 (4.4-11.0) K/mm3 RBC 3.68 L (4.2-5.4) M/mm3 Hgb 11.1 L (12.0-15.0) g/dl Hct 36.1 L (37-47) % Assessment and Plan Assessment: 52-year-old female, perimenopausal with stage IV invasive lobular carcinoma of the left breast (T2, N3, M1) with metastases to left axillary, left supraclavicular and left cervical lymph nodes in addition to widespread metastatic disease to bone , an indeterminate lesion in the liver too small to characterize, and multiple bilateral low- volume brain metastases without visible edema. Disease is ER negative, DC negative, HER-2 overexpressed. Treated with focal radiation therapy to the brain at [facility] October 2017 then whole brain radiation due to STATE PILOT recurrence February 2018. Systemic combination of Pertuzumab, trastuzumab, and Taxotere received total 6 cycles between November - March 2018 with temporary interruption to allow brain radiation. Anemia and GI toxicity appeared to be the main side effects experienced. A bone scan in April 2018 did not report new bony lesions but continued demonstration of diffuse skeletal metastatic disease more confluent. Comorbid conditions COPD, active smoker, poor dentition. Plan; #1 Concluded focal brain radiation for metastatic disease in the STATE PILOT at [facility] 10/2017 then whole brain radiation due to STATE PILOT recurrence in February 2018. #2 She has extensive widespread bony metastatic disease, that in the spine does not impinge on the spinal cord at presentation #3 Pain management consulted to optimize pain control. #4 Systemic therapy, with increasing anemia and GI toxicities possibly from first line treatment and uncertainty whether she has progressive disease therefore switch to second line treatment with Abraxane and Herceptin as of May 07, 2018. #5 Continue bisphosphonate therapy for metastatic bone disease every 3 months in addition to calcium and vitamin D supplement #6 Anemia partly due to metastatic disease to bone marrow and suppression by systemic chemotherapy. No evidence for iron or B12 deficiency found. #7 Echo (/3M of Rx) last was April, showed preserved EF. Next is due July 2018. #8 CA-27-29 not elevated at diagnosis and therefore not helpful and follow-up of disease course. #9 Upper GI dyspeptic symptoms and nausea appears to be related to analgesics use, whereas diarrhea may be related to toxicities especially from Taxotere and Pertuzumab. We will continue to support with IV fluids this week as needed and supplement potassium for hypokalemia. Patient was seen with her , impression and plan discussed. A re-discussion about the prognosis and goal of treatment was done at the patient and her 's request. She was again informed that her disease is incurable, treatment is palliative (symptom control) and with a modest survival benefit. As long as she continues to have an acceptable quality life I would advise continued treatment. She can review her wishes and request home hospice if her quality of life is lost at any time. Medications: Prescriptions This Visit Medication Instructions Recorded Dexamethasone 4 mg PO BID #30 tab 10/19/17 Lidocaine/Prilocaine 30 gm TP DAILY PRN PRN #1 cream..g. 10/19/17 [Lidocaine-Prilocaine Cream] Primary Care Provider: No Primary Care Phys Referring Provider: Carolina Pak MD 05/07/18 0912 <Electronically signed by Carolina Pak MD> Date Carolina Pak MD Cosigner Signature: Date (if applicable) CC: CBC W/DIFF, AUTOMATED Collected: 05/07/2018 Status: F Source: [facility] 8:09 AM [facility] REPOSIT[facility] Order Comment: Reason for Laboratory Test . TYPE CODE TESTS RESULT OUT OF RANGE REFERENCE UNITS LAB L100.1000 4.4-11.0 K/mm3 Normal WBC 6.6 LAB L100.1200 4.2-5.4 M/mm3 Low RBC 3.68 LAB L100.1300 12.0-15.0 g/dl Low HGB 11.1 LAB L100.1400 37-47 % Low HCT 36.1 LAB L100.1500 81-99 fL Normal MCV 98.1 LAB L100.1600 27.0-32.0 pg Normal MCH 30.2 LAB L100.1700 32-36 g/gl Low MCHC 30.7 LAB L100.1810 11.6-14.6 % Normal RDW CV 14.4 LAB L100.1820 35.1-43.9 fl High RDW SD 51.2 LAB L100.1900 150-450 K/mm3 Normal PLT 294 LAB L100.2000 6.2-12.0 fl Normal MPV 9.1 LAB L100.2100 47-70 % Normal NEUT% 65.2 LAB L100.2200 19-41 % Low LY% 15.6 LAB L100.2300 0-10 % High MONO% 18.5 LAB L100.2400 0-5 % Normal EO% 0.0 LAB L100.2500 0-1 % Normal BASO% 0.2 LAB L100.2550 0.0-0.9 % Normal IM GRAN % 0.500 Result Comment: IG% - Immature Granulocytes (promyelocytes, myelocytes and metamyelocytes) > 1% indicates that a LEFT SHIFT is Present. LAB L100.2620 2.0-7.7 X10 3/uL Normal Absolute Neut 4.3 LAB L100.2720 0.83-4.51 X10 3/ul Normal Absolute Lymph 1.03 Performed By: #### L100.0100, L500.4050 #### [facility] [address] [place], [place], [address] COMPREHENSIVE METABOLIC Collected: 05/07/2018 Status: F [facility] Order Comment: Reason for Laboratory Test . TYPE CODE TESTS RESULT OUT OF RANGE REFERENCE UNITS LAB L501.0100 74-106 mg/dL High GLU 108 Result Comment: Fasting Glucose result from 100 to 125 mg/dL suggests IMPAIRED HOMEOSTASIS per A.D.A. criteria. Please note revised GLUCOSE reference range effective 2017. LAB L501.1000 7-18 mg/dL Low BUN 3 LAB L501.1100 0.55-1.02 mg/dL Normal CREAT,SERUM 0.67 Result Comment: The validity of the calculated GFR AND GFRAA in patients over 70 years has not been determined. Clinical correlation is essential. LAB L501.1110 >60 mL/min Normal EST GFR 99 Result Comment: Non- GFR Calc LAB L501.1115 >60 mL/min Normal EST GFR - AA 120 Result Comment: GFR Calc LAB L501.1255 ml/min Normal Estimated CRCL 79.45 LAB L501.1300 10-20 RATIO Low BUN/CRE 4.5 LAB L501.1500 6.4-8. g/dL Low 2 T PROT 6.0 LAB L501.1800 3.2-5. g/dL Normal 0 ALB 3.2 LAB L501.1950 2.2-4. g/dL Normal 2 GLOB 2.8 LAB L501.2000 0.9-2. RATIO Normal 4 A/G 1.1 LAB L501.2200 8.5-10 mg/dL Normal .1 CA 8.5 LAB L501.4100 15-37 U/L Low AST 12 LAB L501.4305 45-117 U/L Low ALK P 42 LAB L501.4405 13-56 U/L Normal ALT 15 LAB L501.4600 0.20-1 mg/dL Normal .00 T BILI 0.20 LAB L501.5300 136-14 mmol/L Normal 5 NA 142 LAB L501.5600 3.5-5. mmol/L Normal 1 K 3.7 LAB L501.5900 98-107 mmol/L High CL 108 LAB L501.6100 21.0-3 mmol/L Normal 2.0 CO2 26.0 LAB L501.6200 5-15 Normal GAP 8 Performed By: #### L100.0100, L500.4050 #### [facility] [address] [place], [address] BASIC METABOLIC Collected: 05/04/2018 Status: F Source: [facility] PROFILE (BMP) 9:40 AM [facility] REPOS[facility] Order Comment: Reason for Laboratory Test . TYPE CODE TESTS RESULT OUT OF RANGE REFERENCE UNITS LAB L501.0100 74-106 mg/dL Normal GLU 98 Result Comment: Please note revised GLUCOSE reference range effective 2017. LAB L501.1000 7-18 mg/dL Low BUN < 1 LAB L501.1100 0.55-1.02 mg/dL Normal CREAT,SERUM 0.56 Result Comment: The validity of the calculated GFR AND GFRAA in patients over 70 years has not been determined. Clinical correlation is essential. LAB L501.1110 >60 mL/min Normal EST GFR 121 Result Comment: Non- GFR Calc LAB L501.1115 >60 mL/min Normal EST GFR - AA 147 Result Comment: GFR Calc LAB L501.1255 ml/min 95.06 Normal Estimated CRCL LAB L501.1300 10-20 RATIO Test Normal BUN/CRE not performed LAB L501.2200 8.5-10 mg/dL .1 CA 8.5 Normal LAB L501.5300 136-14 mmol/L 5 NA 145 Normal LAB L501.5600 3.5-5. mmol/L Low 1 K 3.3 LAB L501.5900 98-107 mmol/L High CL 110 LAB L501.6100 21.0-3 mmol/L 2.0 CO2 26.0 Normal LAB L501.6200 5-15 GAP 9 Normal Performed By: #### L500.2500 #### [facility] [address] [facility] [place], [address] ONCOLOGY VISIT REPORT Observed: 05/03/2018 Status: F Source: SECOR 5:10 PM [facility] REPOSIT[facility] [facility] [place] [address] OFFICE VISIT Date of Service: 05/03/18 1004 MR#: [id number] Acct: [id number] Name: LINDSAY ANTUNEZ Rep #: [id number] : 1965 From: Carolina Pak MD Age/Sex: 52/F Location: ONC Status: Signed - Problem List (1) Primary cancer of left female breast Status: Chronic (2) Regional lymph node metastasis present Status: Chronic (3) Bone metastases Status: Chronic (4) Brain metastases Status: Chronic (5) Anemia Status: Chronic (6) Fatigue Status: Chronic (7) Anorexia Status: Chronic (8) Intractable nausea and vomiting Status: Acute Qualifiers: Vomiting type: unspecified Qualified Code(s): R11.2 - Nausea with vomiting, unspecified (9) Hypokalemia Status: Acute - Date of Service Date of Service:: 05/03/18 - Chief Complaint Breast cancer on treatment - History of Present Illness Patient is a 52-year-old female perimenopausal who never had screening mammographies and became aware of a painless lump in the left breast and a second lump in the left axilla in August 2017. She did not seek any medical care until October 09, 2017 when she developed chest pain and dyspnea. She was seen in [facility] emergency room, diagnosed and treated for pneumonia and referred to surgical consultation when the breast mass was noted on exam. Mammography and ultrasound examination confirmed the palpable abnormalities. On October 12, 2017 she underwent biopsies from the left breast mass and the left axilla that confirmed an invasive lobular carcinoma nuclear grade 3 ER negative, DC negative, HER-2 overexpressed 3+. On October [address] scan of the chest that showed emphysematous changes and diffuse bony lytic lesions throughout the thoracic and lumbar vertebrae and lower cervical segments, lytic lesions in humeral heads bilaterally, sternum, clavicles, left scapula and several ribs bilaterally. CT scan of the abdomen and pelvis showed an indeterminate lesion too small to characterize in the liver but no other visceral disease, widespread bony metastatic disease was again noted. A bone scan October 2017 initial staging showed diffuse skeletal metastatic disease. A bone biopsy October 27, 2017 confirmed metastatic cancer of breast origin. Brain MRI showed small multiple metastatic lesions one in the posterior right internal capsule, multiple bilateral small cerebellar metastases. CA 27-29 not elevated at diagnosis and therefore will not aid in follow-up. Her family history is notable for 2 maternal aunts with breast cancers but no first-degree relatives was breast cancer Treatment: Focal radiation therapy to the sites of disease in the [facility] P[facility]OT at [facility] main 10/2017 Whole brain radiation therapy 3000 cGy of 6 MV photons in 10 fractions 02/28/18- 03/13/18. Systemic therapy was held during whole brain radiation. Ycfepcjrqd-Tmozsyabpom-Ruyxanaj 11/2017-03/2018 (6 cycles) - Interval History Date of Admission: 04/29/18 Date of Discharge: 05/01/18 - Primary Discharge Diagnosis #1 intractable nausea and vomiting/diarrhea. #2 enteritis. Note : Patient had no radiation treatment to the abdomen #3 probable acute cystitis/sepsis. - Past Medical/Social History Past Medical History Past Medical History: Pneumonia Cancer: Breast cancer Other Cancer History: Radiation to brain Social History Social History: No changes Smoking Status Former smoker Review of Systems Constitutional:: Reports: Weakness, Fatigue, Appetite change - Secondary to nausea. Denies: Fever, Sweats, Weight loss, Chills Cardiovascular:: Reports: Dyspnea on exertion. Denies: Chest pain, Palpitations, Orthopnea, PND, Shortness of breath Respiratory: Reports: Shortness of breath upon exertion. Denies: Cough, Hemoptysis, Shortness of Breath, Wheezing Gastrointestinal:: Reports: Nausea, Diarrhea - Has had diarrhea for the past few days, increased after starting Cipro. Denies: Abdominal pain, Vomiting, Constipation, Hematochezia Genitourinary: Denies: Dysuria, Hematuria, 15, Flank pain Musculoskeletal:: Reports: Back pain, - - Ribs pain, narcotic analgesia protocol was recently adjusted by pain management but still using breakthrough analgesics. Denies: Myalgia, Arthralgia Skin: Reports: Lesions - Chronic multiple skin lesions no change. Denies: Rash, Skin Changes, Wounds Neurological:: Denies: Headache, Dizziness, Visual changes, Tinnitus, Hearing loss Psychiatric: Denies: Anxiety, Depression, Homicidal Ideations, Suicidal Ideations Vital Signs Height 5 ft 2 in Weight: 60.963 kg - Physical Exam General: Alert, Oriented x3, No apparent distress, - - ECOG 2 HEENT: Atraumatic, PERRLA, EOMI, Normocephalic, - - Port okay Oropharynx:: Dry mucosa Neck:: Supple, Trachea midline. Negative for: JVD, bilateral Cardiac:: Regular rate, Regular rhythm, Normal S1, Normal S2. Negative for: Murmur Lungs: Clear to auscultation, Excusion symmetrical. Negative for: Rhonchi, Wheezes Abdomen:: Soft, Non-tender, Non-distended. Negative for: Hepatosplenomegaly Extremities:: Negative for: Cyanosis, Edema Neurological: Neuro grossly intact Skin:: Negative for: Lesions, Rash, Petechiae, Ecchymosis Psychiatric:: Appropriate affect, Euthymic Lymphatics:: Negative for: Cervical lymphadenopathy, Supraclavicular lymphadenopathy, Axillary lymphadenopathy Laboratory Data: Laboratory Tests WBC 5.4 (4.4-11.0) K/mm3 RBC 3.77 L (4.2-5.4) M/mm3 Hgb 11.3 L (12.0-15.0) g/dl Hct 36.8 L (37-47) % Diagnostic Data: Echocardiography April 26, 2018: Left Ventricle Normal LV size. Left ventricular systolic function is normal. The estimated ejection fraction is 65 %. Normal diastology for age. No regional wall motion abnormalities noted. I personally reviewed patient's bone scan images from April and compared them to those of October 2017 and concur with the report Assessment and Plan Assessment: 52-year-old female, perimenopausal with stage IV invasive lobular carcinoma of the left breast (T2, N3, M1) with metastases to left axillary, left supraclavicular and left cervical lymph nodes in addition to widespread metastatic disease to bone , an indeterminate lesion in the liver too small to characterize, and multiple bilateral low- volume brain metastases without visible edema. Disease is ER negative, DC negative, HER-2 overexpressed. Treated with focal radiation therapy to the brain at [facility] October 2017 then whole brain radiation due to STATE PILOT recurrence February 2018. Systemic combination of Pertuzumab, trastuzumab, and Taxotere received total 6 cycles between November - March 2018 with temporary interruption to allow brain radiation. Anemia and GI toxicity appeared to be the main side effects experienced. A bone scan in April 2018 did not report new bony lesions but continued demonstration of diffuse skeletal metastatic disease more confluent. Comorbid conditions COPD, active smoker, poor dentition. Plan; #1 Concluded focal brain radiation for metastatic disease in the STATE PILOT at [facility] 10/2017 then whole brain radiation due to STATE PILOT recurrence in February 2018. #2 She has extensive widespread bony metastatic disease, that in the spine does not impinge on the spinal cord at presentation #3 Pain management consulted to optimize pain control. #4 Systemic therapy, with increasing anemia and GI toxicities possibly from first line treatment and uncertainty whether she has progressive disease therefore will switch to second line treatment with Abraxane and Herceptin. #5 Continue bisphosphonate therapy for metastatic bone disease every 3 months in addition to calcium and vitamin D supplement #6 Anemia partly due to metastatic disease to bone marrow and suppression by systemic chemotherapy. No evidence for iron or B12 deficiency found. #7 Echo (/3M of Rx) last was April, showed preserved EF. Next is due July 2018. #8 CA-27-29 not elevated at diagnosis and therefore not helpful and follow-up of disease course. #9 Upper GI dyspeptic symptoms and nausea appears to be related to analgesics use, whereas diarrhea may be related to toxicities especially from Taxotere and Pertuzumab. We will continue to support with IV fluids this week and supplement potassium for hypokalemia. Patient was seen with her , impression and plan discussed. A re-discussion about the prognosis and goal of treatment was done at the patient and her 's request. She was again informed that her disease is incurable, treatment is palliative (symptom control) and with a modest survival benefit. As long as she continues to have an acceptable quality life I would advise continued treatment. She can review her wishes and request home hospice if her quality of life is lost at any time. Medications: Prescriptions This Visit Medication Instructions Recorded Dexamethasone 4 mg PO BID #30 tab 10/19/17 Lidocaine/Prilocaine 30 gm TP DAILY PRN PRN #1 cream..g. 10/19/17 Primary Care Provider: No Primary Care Phys Referring Provider: Carolina Pka MD 05/03/18 4346 <Electronically signed by Carolina Pak MD> Date Carolina Pak MD Cosigner Signature: Date (if applicable) CC: CONSULTATION Observed: 05/03/2018 Status: F Source: [place] 4:49 PM [facility] Medical Records Department [address] [place] [address] Consultation 04/30/18 1637 MR#: [id number] Acct: [id number] Name: LINDSAY ANTUNEZ Rep #: [id number] : 1965 52 From: Mar Medrano SUPPORTABILITY ENGINEER-C PCP: Care Physician, No Primary Status: DIS IN Y Location: MS3 [id number] Subjective Date of Service:: 04/30/18 Chief Complaint: Intractable nausea/vomiting History of Present Illness: Ms. Lindsay Antunez is a very pleasant 52-year-old perimenopausal woman who never had screening mammographies and became aware of a painless lump in the left breast and a second lump in the left axilla in August 2017. On October 12, 2017 she underwent biopsies from the left breast mass and the left axilla that confirmed an invasive lobular carcinoma nuclear grade 3 ER negative, DC negative, HER-2 overexpressed 3+. Initial staging studies revealed diffuse bony lytic lesions throughout the thoracic and lumbar vertebrae and lower cervical segments, lytic lesions in humeral heads bilaterally, sternum, clavicles, left scapula and several ribs bilaterally and an indeterminate lesion too small to characterize in the liver but no other visceral disease. A bone biopsy October 27, 2017 confirmed metastatic cancer of breast origin. Brain MRI obtained 10/20/17 showed small multiple metastatic lesions one in the posterior right internal capsule, multiple bilateral small cerebellar metastases. Received focal radiation therapy to the sites of disease in the STATE PILOT at [facility] main 10/2017. Began systemic therapy with docetaxel/trastuzumab/pertuzumab 11/29/17. Required whole brain radiation therapy, 10 fractions 02/28/18- 03/13/18. Systemic therapy was held only during whole brain radiation. Patient presented to [facility] ED 04/29/18 with c/o nausea/vomiting/diarrhea and subsequently admitted for management. Began PPI and antiemetics. Upon evaluation today states I feel so much better was able to tolerate a full liquid diet for mid day meal. Although admits to continued diarrhea, albeit improved in terms of frequency and consistency. Past Medical History: Chronic Problems (Last Reviewed 05/03/18 @ 09:24 by Sloane Schwartz) Fatigue (Chronic) Anorexia (Chronic) Anemia (Chronic) COPD (chronic obstructive pulmonary disease) (Chronic) History of tubal ligation (Chronic) Brain metastases (Chronic) Cerebral aneurysm (Chronic) Primary cancer of left female breast (Chronic) Regional lymph node metastasis present (Chronic) Bone metastases (Chronic) Past Medical/Surgical History: Past Medical History - Most Recent Inpatient Visit Past Medical History Start: 04/29/18 16:43 Text: Status: Complete Freq: ONCE Protocol: Document 04/29/18 17:02 TDW (Rec: 04/29/18 17:07 TDW [id number]) BMI Required to complete PMH What is Patient's BMI 18.5 Neurologic Medical History Hx Stroke/TIA No Hx Dementia/Alzheimer's No Hx Parkinson's Disease No Hx Seizures No Hx Multiple Sclerosis No Hx Migraines Yes Cardiac Medical History VTE Present on Admission No Hx of Deep Vein Thrombosis/VTE/PE No Hx Hypertension No Hx Chest Pain/Angina No Hx Heart Attack No Hx Cardiac Surgery/Stents/Etc. No Hx Heart Failure No Hx Pacemaker/AICD No Hx Irregular Heartbeat and/or Afib No Hx Anticoagulant Therapy No Query Text:(Coumadin, Aspirin, Plavix, Xarelto, etc.) Hx Pain in Legs when Walking/Leg Cramps No Respiratory Medical History Hx COPD No Hx Emphysema No Hx Smoking No Smoking Status Former smoker Tobacco Use Non-smoker Hx Tobacco Use in last 12 months No Hx Sleep Apnea No Do you snore loudly (louder than talking No or can be heard through closed doors)? Do you often feel tired/ fatigued/ No sleepy during daytime? Has anyone observed you stop breathing No during sleep? STOP Results Negative GI Medical History Hx Ulcer No Hx Hepatitis No Hx Cirrhosis No Hx GI Bleed No Hx Unplanned Weight Loss Yes Comments painful stomach Genitourinary Medical History Indwelling Catheter in Place on Arrival/ No Admission Hx Renal Disease No Hx Dialysis No Musculoskeletal History Hx Arthritis Yes: back, elbow Hx Rheumatoid Arthritis No Endocrine Medical History Hx Diabetes No Hx Thyroid Disease No Hematologic Medical History Hx of Blood Transfusion Yes Hx of Transfusion in last 3 Months No Ever experience any problems with No transfusion(s)? Hx of Preganancy in last 3 Months No Nurse Filling Out Transfusion AND TWOLF Questions: Date: 04/29/18 Time: 17:06 Psycho/Social Medical History Hx Depression Yes Hx Anxiety Yes Hx Behavior Disorder No Hx Alcohol Use No Hx Substance Use No Other Medical History Hx Blood Disorders No Hx Anemia Yes Hx Cancer Yes: MET BREAST Hx Drug Resistant Organism No Wound/Pressure Injury Present on Arrival No /Admission Query Text:If yes, chart assessment in Shift/Clinical Findings Central Line/PICC/VAD Present on Arrival Yes /Admission Antibiotics within last 7 days? No Risk for Readmission Number of Risk Factors 7 At Risk for Readmission Patient is At Risk For Readmission Patient is eligible for Call Back Y Past Medical History (Last Reviewed 04/29/18 @ 15:39 by Iglesia Mueller DO) Primary cancer of left female breast (Chronic) Regional lymph node metastasis present (Chronic) Bone metastases (Chronic) Pneumonia (Acute) port placement (Acute) Past Surgical History (Last Reviewed 04/29/18 @ 15:39 by Iglesia Mueller DO) History of section (Acute) Hx of tonsillectomy (Acute) Maternal Family History: Family History (Last Reviewed 05/03/18 @ 09:24 by Sloane Schwartz) Mother Heart disease Father Heart disease Aunt Breast cancer - Social History Smoking Status: Former smoker Tobacco Use: Non-smoker Alcohol: None Drugs: None Allergies/Adverse Reactions: Allergy/AdvReac Type Severity Reaction Status Date / Time No Known Allergies Allergy Verified 05/03/18 09:24 Review of Systems Constitutional:: Reports: Weakness, Fatigue. Denies: Fever, Sweats, Weight loss, Appetite change, Chills Cardiovascular:: Denies: Chest pain, Palpitations, Dyspnea on exertion, Orthopnea, PND, Shortness of breath Respiratory: Denies: Cough, Hemoptysis, Shortness of Breath, Wheezing Gastrointestinal:: Reports: Nausea, Diarrhea. Denies: Abdominal pain, Vomiting, Constipation, Hematochezia Genitourinary: Denies: Dysuria, Hematuria, Urinary frequency, Flank pain Musculoskeletal:: Denies: Back pain, Myalgia, Arthralgia Skin: Denies: Rash, Skin Changes, Wounds Neurological:: Denies: Headache, Dizziness, Visual changes, Tinnitus, Hearing loss Psychiatric: Denies: Anxiety, Depression, Homicidal Ideations, Suicidal Ideations Vital Signs Height 5 ft 10 in Weight: 128 lb 14.4 oz Weight in Pounds 128.9 lbs Pulse Ox 94 - Physical Exam General: Alert, Oriented x3, No apparent distress, - - cushingoid appearance HEENT: Atraumatic, PERRLA, EOMI, Normocephalic Oropharynx:: Negative for: Dry mucosa, Ulcerated lesions Neck:: Supple, Trachea midline. Negative for: JVD, bilateral Cardiac:: Regular rate, Regular rhythm, Normal S1, Normal S2. Negative for: Murmur Lungs: Clear to auscultation, Excusion symmetrical. Negative for: Rhonchi, Wheezes Abdomen:: Bowel sounds x 4, Soft, Non-tender, Non-distended, Hyperactive bowel sounds. Negative for: Hepatosplenomegaly Extremities:: Negative for: Cyanosis, Edema Neurological: Neuro grossly intact Skin:: Negative for: Lesions, Rash, Petechiae, Ecchymosis Psychiatric:: Appropriate affect, Euthymic Lymphatics:: Negative for: Cervical lymphadenopathy, Supraclavicular lymphadenopathy, Axillary lymphadenopathy Laboratory Data: Microbiology 04/29/18 16:55 Enteric Bacteriology - Final Stool 04/29/18 16:55 C. difficile DNA Amplification - Final Stool Laboratory Tests WBC 8.1 (4.4-11.0) K/mm3 Diagnostic Data: Diagnostic Data Chest X-Ray 04/29/18 13:33 IMPRESSION: No evidence of acute cardiopulmonary process. Electronically Signed: Mark Rios DO at 13:50 EDT , Service support , Abdomen/Pelvis CT 04/29/18 16:58 IMPRESSION: There is diffuse wall thickening and inflammation of the terminal ileum. This suggests the terminal ileitis. 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 Enlargement left upper abdominal wall soft tissue nodule. Diffuse lytic and sclerotic lesions throughout the bones consistent for metastatic disease. Likely due to timing of the IV bolus, the previously noted nodules in the liver are difficult to visualize. Other findings as above. Electronically Signed: Victor M Aleman MD at 20:53 EDT , Service support , Assessment and Plan 52-year-old perimenopausal woman with stage IV invasive lobular carcinoma of the left breast (T2, N3, M1) ER negative, DC negative, HER-2 overexpressed with metastases to left axillary, left supraclavicular and left cervical lymph nodes in addition to widespread metastatic disease to bone , an indeterminate lesion in the liver too small to characterize, and multiple bilateral low-volume brain metastases without visible edema, s/p both focal and whole brain radiation. Patient presented to the emergency department with c/o intractable nausea and vomiting with diarrhea, found to have findings consistent with sepsis secondary to probable acute cystitis. 1. Intractable nausea and vomiting/diarrhea- Vomiting resolved. Managed with IV fluids, IV PPI, and IV pain medications. Stool was negative for C. difficile. Per her request, advanced diet to regular. Educated to use prn Zofran and avoid the use of any other prn antiemetic she may have at home (Compazine) as may lower seizure threshold. CT abd/pelvis reviewed. Terminal ileitis unlikely r/t radiation as she has only received focal and whole brain radiation. MRI brain obtained 04/23/18 reviewed, shows persistent small cerebellar metastasis however there is generalized interval improvement in the number of metastatic lesions since previous exam and no mention of associated edema. Thus, d/t cushingoid appearance and improvement of symptoms, will hold on re introduction to steroids at this time. 2. Stage IV metastatic breast cancer- Currently receiving systemic therapy with Taxotere/Herceptin/Perjeta, EF 65%. Restaging studies were ordered last week. Will discuss details of findings with Dr. Pak at her office visit on 05/03/18. 3. Presumable cystitis/sepsis- Managed by primary team, on IV Rocephin. Urine culture and blood culture pending. 4. DVT prophylaxis: SQ Lovenox. Mar Medrano, MSN, ASSISTANT PRINTER [employer]OR [employer]OVERING, AOCNP Medications: Prescriptions This Visit Medication Instructions Recorded Fentanyl [Fentanyl] 25 mcg TOPICAL Q72H 04/29/18 Medications Added to Medication List This Visit Ceftriaxone [Rocephin] Med 04/30/18 10:00 Active 1 gm in 50 ml IV Q24 Enoxaparin [Lovenox] Med 04/30/18 10:00 Active 40 mg SC DAILY@1000 Primary Care Provider: No Primary Care Phys Referring Provider: - Problem List (1) Intractable nausea and vomiting Status: Acute Qualifiers: Vomiting type: unspecified Qualified Code(s): R11.2 - Nausea with vomiting, unspecified (2) Brain metastases Status: Chronic (3) Primary cancer of left female breast Status: Chronic 05/03/18 4309 <Electronically signed by Mar HERNANDESC> Date Mar Mitchell SUPPORTABILITY ENGINEER-C Cosigner Signature (if applicable): Date CC: No Primary Care Physician; Mar Medrano SUPPORTABILITY ENGINEER Signed CBC W/DIFF, AUTOMATED Collected: 05/03/2018 Status: F Source: [place] 9:11 AM [facility] REPOSITORY TYPE CODE TESTS RESULT OUT OF RANGE REFERENCE UNITS LAB L100.1000 4.4-11.0 K/mm3 Normal WBC 5.4 LAB L100.1200 4.2-5.4 M/mm3 Low RBC 3.77 LAB L100.1300 12.0-15.0 g/dl Low HGB 11.3 LAB L100.1400 37-47 % Low HCT 36.8 LAB L100.1500 81-99 fL Normal MCV 97.6 LAB L100.1600 27.0-32.0 pg Normal MCH 30.0 LAB L100.1700 32-36 g/gl Low MCHC 30.7 LAB L100.1810 11.6-14.6 % Normal RDW CV 14.2 LAB L100.1820 35.1-43.9 fl High RDW SD 50.9 LAB L100.1900 150-450 K/mm3 Normal PLT 274 LAB L100.2000 6.2-12.0 fl Normal MPV 9.1 LAB L100.2100 47-70 % Normal NEUT% 62.3 LAB L100.2200 19-41 % Low LY% 14.8 LAB L100.2300 0-10 % High MONO% 21.4 LAB L100.2400 0-5 % Normal EO% 0.2 LAB L100.2500 0-1 % Normal BASO% 0.7 LAB L100.2550 0.0-0.9 % Normal IM GRAN % 0.600 Result Comment: IG% - Immature Granulocytes (promyelocytes, myelocytes and metamyelocytes) > 1% indicates that a LEFT SHIFT is Present. LAB L100.2620 2.0-7.7 X10 3/uL Normal Absolute Neut 3.4 LAB L100.2720 0.83-4.51 X10 3/ul Low Absolute Lymph 0.80 Performed By: #### L100.0100 #### [facility] [address] [place], [address] COMPREHENSIVE METABOLIC Collected: 05/03/2018 Status: F Source: [place] MACKEY 9:10 AM [facility] REPOSIT[facility] Order Comment: Reason for Laboratory Test Chemotherapy TYPE CODE TESTS RESULT OUT OF RANGE REFERENCE UNITS LAB L501.0100 74-106 mg/dL Normal GLU 85 Result Comment: Please note revised GLUCOSE reference range effective 2017. LAB L501.1000 7-18 mg/dL Low BUN 1 LAB L501.1100 0.55-1.02 mg/dL Normal CREAT,SERUM 0.65 Result Comment: The validity of the calculated GFR AND GFRAA in patients over 70 years has not been determined. Clinical correlation is essential. LAB L501.1110 >60 mL/min Normal EST GFR 102 Result Comment: Non- GFR Calc LAB L501.1115 >60 mL/min Normal EST GFR - AA 123 Result Comment: GFR Calc LAB L501.1255 ml/min Normal Estimated CRCL 81.89 LAB L501.1300 10-20 RATIO Low BUN/CRE 1.5 LAB L501.1500 6.4-8. g/dL Low 2 T PROT 5.9 LAB L501.1800 3.2-5. g/dL Low 0 ALB 3.0 LAB L501.1950 2.2-4. g/dL Normal 2 GLOB 2.9 LAB L501.2000 0.9-2. RATIO Normal 4 A/G 1.0 LAB L501.2200 8.5-10 mg/dL Low .1 CA 8.4 LAB L501.4100 15-37 U/L Low AST 12 LAB L501.4305 45-117 U/L Normal ALK P 51 LAB L501.4405 13-56 U/L Normal ALT 16 LAB L501.4600 0.20-1 mg/dL Low .00 T BILI 0.10 LAB L501.5300 136-14 mmol/L High 5 NA 147 LAB L501.5600 3.5-5. mmol/L Low 1 K alert 2.7 Result Comment: Critical Result(s) Called at: 09:57:15 05/03/2018 by: Lynda Correa LAB L501.5900 98-107 mmol/L High CL 111 LAB L501.6100 21.0-32.0 mmol/L Normal CO2 24.0 LAB L501.6200 5-15 Normal GAP 12 Performed By: #### L500.4050 #### [facility] [address] [place], [address] 12 LEAD ELECTROCARDIOGRAM Observed: 05/02/2018 Status: F Source: [place] 10:51 AM [facility] [address] [place] [address] 12 Lead EKG 04/29/18 1235 MR#: [id number] Acct: [id number] Name: LINDSAY ANTUNEZ Rep #: [id number] : 1965 52 From: Amilcar Rees MD Attending Dr: Gokul Woodson Status: DIS IN Ordering Dr: Rossana Varela MD Date: 04/29/18 Location: [facility] [place] Sex: F C Admitted: 04/29/18 Test Reason : NAUSEA Blood Pressure : / mmHG Vent. Rate : 097 BPM Atrial Rate : 097 BPM P-R Int : 140 ms QRS Dur : 080 ms QT Int : 334 ms P-R-T Axes : 069 086 065 degrees QTc Int : 424 ms Normal sinus rhythm Normal ECG Confirmed by MAYRA DUMONT, AMILCAR ([id number]), editor publications MILTON DESOUZA ([id number]) on 05/02/2018 10:50:50 AM Referred By: SMOOTH Confirmed By:AMILCAR REES MD 05/02/18 1050 Date Amilcar Rees MD CC: MD Alma Delia Varela; No Primary Care Physician; Gokul Woodson Signed DISCHARGE SUMMARY Observed: 05/01/2018 Status: F Source: [place] 1:13 PM [facility] Medical Records Department [address] [place] [address] Discharge Summary 05/01/18 1307 MR#: [id number] Acct: [id number] Name: LINDSAY ANTUNEZ Rep #: [id number] : 1965 52 From: Gokul Woodson MD PCP: Care Physician, No Primary Status: DIS IN Y Location: MS3 ST793-1 Discharge Date and Diagnosis Date of Admission: 04/29/18 Date of Discharge: 05/01/18 - Primary Discharge Diagnosis #1 intractable nausea and vomiting/diarrhea. #2 radiation-induced enteritis. #3 probable acute cystitis/sepsis. - Secondary Discharge Diagnosis Chronic Problems (Last Reviewed 04/29/18 @ 15:39 by Iglesia Mueller DO) Anemia (Chronic) COPD (chronic obstructive pulmonary disease) (Chronic) History of tubal ligation (Chronic) Brain metastases (Chronic) Cerebral aneurysm (Chronic) Primary cancer of left female breast (Chronic) Regional lymph node metastasis present (Chronic) Bone metastases (Chronic) Hospital Course and Treatment Imaging Results: Clinical Impression(s) from Imaging Studies Chest X-Ray 04/29/18 13:33 IMPRESSION: No evidence of acute cardiopulmonary process. Electronically Signed: Mark Rios DO at 13:50 EDT , Service support , Abdomen/Pelvis CT 04/29/18 16:58 IMPRESSION: There is diffuse wall thickening and inflammation of the terminal ileum. This suggests the terminal ileitis. 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 Enlargement left upper abdominal wall soft tissue nodule. Diffuse lytic and sclerotic lesions throughout the bones consistent for metastatic disease. Likely due to timing of the IV bolus, the previously noted nodules in the liver are difficult to visualize. Other findings as above. Electronically Signed: Victor M Aleman MD at 20:53 EDT , Service support , Operations: None Procedures: None Summary of Care Provided: Patient seen and examined on the day of discharge and appeared to be stable to be discharged home. Nausea and vomiting improved, has been able to tolerate regular diet. Still having diarrhea. Abdominal pain significant improved, no fever or chills. Her vital signs stable. - Physical Exam General: Alert, Oriented x3, Cooperative, No apparent distress. HEENT: Atraumatic, PERRLA, EOMI. Neck: Supple, No JVD, Negative Carotid Bruits, Trachea Midline, Thyroid Normal. Lungs: Clear to auscultation, Normal air movement, No rhonchi, No wheeze, No rales. Cardiovascular: Regular rate, Regular Rhythm, Normal S1, Normal S2, PMI Normal. Abdomen: Bowel Sounds Present, Soft, Non Tender, Non-Distended, No Hepato-splenomegaly. Extremities: No clubbing, No cyanosis, No edema Skin: No rashes, No breakdown Neurological: Neuro grossly intact Vital Signs are stable. Hospital course: The patient is a 52 year old F admitted because of intractable nausea and vomiting with diarrhea and she was found to have findings consistent with sepsis. The sepsis attributed to probable acute cystitis in addition to acute diarrheal illness caused by radiation induced enteritis. This patient has history of stage IV metastatic breast cancer, currently on chemotherapy and radiation. CT scan abdomen and pelvis with contrast revealed diffuse wall thickening and inflammation of the terminal ileum consistent with terminal ileitis which is attributed to radiation that patient is here for metastatic breast cancer. CT scan abdomen also revealed metastatic diffuse lytic and sclerotic bone lesions as well as metastatic liver disease. On admission, patient was tachycardic, has leukocytosis. Her urinalysis revealed cloudy urine, positive for nitrite, positive for leukocyte esterase and he was 10-25 WBCs and 3+ bacteria. She was treated with IV fluids, IV Rocephin, IV pain medications and IV antiemetics. With treatment, recent symptoms improved and she was able to tolerate clear liquid diet. Her lactic acid was normal. Blood culture showed no growth in 48 hours. Stool for C. difficile was negative. Stool for enteric pathogens was negative as well. With treatment, her white blood cell count returned back to normal. Her LFT and lipase were normal. Patient discharged home in a stable medical condition, discharged on ciprofloxacin 500 mg p.o. twice daily for 5 days, continued on her home medications without any changes, plan to follow-up with oncology this coming , May 03, 2018, recommended follow-up with PCP in 2-3 weeks. Discharge Activity: Return to Normal Activity, May not drive while taking narcotic pain medications. Weight Bearing Status: Weight bearing as tolerated Call your doctor if you observe: Fever of 101 or Higher, Shortness of breath, Dizziness, Fainting spells, Chest pain, Increased palpitations (irregular heartbeat), Uncontrolled pain Home Medications: Medications to take at Discharge Hydrocodone Bitart/Apap 5-325 [[place] 5/325] 1 tablet PO Q6H PRN PRN #10 tablet 10/18/17 Dexamethasone 4 mg PO BID #30 tab 10/19/17 Lidocaine/Prilocaine [Lidocaine-Prilocaine Cream] 30 gm TP DAILY PRN PRN #1 cream..g. 10/19/17 Acetaminophen [Tylenol] 325 mg PO PRN PRN 02/13/18 Loperamide [Imodium] 2 mg PO Q2H PRN PRN 02/13/18 Senna [Senokot] 1 tablet PO DAILY PRN PRN 02/13/18 Loratadine/Pseudoephedrine [Claritin-D 12 Hour Tablet] 1 each PO UD 04/10/18 Fentanyl 25 mcg TD Q72H 04/19/18 Ondansetron [Zofran Odt] 8 mg PO Q8H PRN PRN 10 Days #30 tab 04/19/18 Fentanyl 25 mcg TOPICAL Q72H 04/29/18 Ciprofloxacin [Cipro] 500 mg PO BID #10 tab 05/01/18 Following Prescrptions Were Given to Patient: Ciprofloxacin [Cipro] 500 mg PO BID #10 tab Primary Care Physician: Care Physician,No Primary [Primary Care Provider] - Please follow up with your Primary Care Physician in: 2-3 weeks. Please Follow Up With: Carolina Pak MD When: as scheduled. Disposition: Home Minutes spent on discharge:: 33 Patient Condition:: Stable Medical Necessity - Tobacco Use Smoking Status: Former smoker Tobacco Use: Non-smoker Meaningful Use Info Meaningful Use Diagnoses (Choose all that apply): None applicable Code Visit Inpatient E AND M: [id number] Disch Hosp 05/01/18 1313 <Electronically signed by Gokul Woodson MD> Date Gokul Woodson MD Cosigner Signature (if applicable): Date CC: No Primary Care Physician; Gokul Woodson; Carolina Pak MD; PCP Signed DISCHARGE INSTRUCTION Observed: 05/01/2018 Status: F Source: KRYSTAL 8:40 AM [facility] REPOS[facility] Medical Records Department [address] [place] [address] Instructions for Home/Discharge Instructions 05/01/18 0839 MR#: [id number] Acct: [id number] Name: LINDSAY ANTUNEZ Rep #: [id number] : 1965 52 From: Gokul Woodson MD PCP: Care Physician, No Primary Status: ADM IN - Discharge Diagnoses Current Active Problems: Current Active and Chronic Problems (Last Reviewed 04/29/18 @ 15:39 by Iglesia Mueller DO) Nausea AND vomiting (Acute) SIRS (systemic inflammatory response syndrome) (Acute) You will use the following diet at home:: Regular Your food should be the consistency of: Regular Discharge Activity: Return to Normal Activity, May not drive while taking narcotic pain medications. Weight Bearing Status: Weight bearing as tolerated Call your doctor if you observe: Fever of 101 or Higher, Shortness of breath, Dizziness, Fainting spells, Chest pain, Increased palpitations (irregular heartbeat), Uncontrolled pain Allergies/Adverse Reactions: Allergies No Known Allergies Allergy (Verified 04/29/18 12:00) Medications to take at Discharge Hydrocodone Bitart/Apap 5-325 [[place] 5/325] 1 tablet PO Q6H PRN PRN #10 tablet 10/18/17 Dexamethasone 4 mg PO BID #30 tab 10/19/17 Lidocaine/Prilocaine [Lidocaine-Prilocaine Cream] 30 gm TP DAILY PRN PRN #1 cream..g. 10/19/17 Acetaminophen [Tylenol] 325 mg PO PRN PRN 02/13/18 Loperamide [Imodium] 2 mg PO Q2H PRN PRN 02/13/18 Senna [Senokot] 1 tablet PO DAILY PRN PRN 02/13/18 Loratadine/Pseudoephedrine [Claritin-D 12 Hour Tablet] 1 each PO UD 04/10/18 Fentanyl 25 mcg TD Q72H 04/19/18 Ondansetron [Zofran Odt] 8 mg PO Q8H PRN PRN 10 Days #30 tab 04/19/18 Fentanyl 25 mcg TOPICAL Q72H 04/29/18 Primary Care Physician: Care Physician,No Primary [Primary Care Provider] - Please follow up with your Primary Care Physician in: 2-3 weeks. Test Results: Test results from this visit will be discussed in further detail at your follow-up appointment, if applicable. Please Follow Up With: Carolina Pak MD When: as scheduled. 05/01/18 0840 <Electronically signed by Gokul Woodson MD> Date Gokul Woodson MD CC: No Primary Care Physician; Mar Medrano SUPPORTABILITY ENGINEER CBC W/DIFF, AUTOMATED Collected: 04/30/2018 Status: F Source: KRYSTAL 6:00 AM [facility] REPOSITORY Order Comment: SPECIMEN OBTAINED FROM LINE DRAW TYPE CODE TESTS RESULT OUT OF RANGE REFERENCE UNITS LAB L100.1000 4.4-11.0 K/mm3 Normal WBC 8.1 LAB L100.1200 4.2-5.4 M/mm3 Low RBC 3.55 LAB L100.1300 12.0-15.0 g/dl Low HGB 10.8 LAB L100.1400 37-47 % Low HCT 34.7 LAB L100.1500 81-99 fL Normal MCV 97.7 LAB L100.1600 27.0-32.0 pg Normal MCH 30.4 LAB L100.1700 32-36 g/gl Low MCHC 31.1 LAB L100.1810 11.6-14.6 % Normal RDW CV 14.4 LAB L100.1820 35.1-43.9 fl High RDW SD 51.5 LAB L100.1900 150-450 K/mm3 Normal PLT 229 LAB L100.2000 6.2-12.0 fl Normal MPV 9.4 LAB L100.2100 47-70 % High NEUT% 72.1 LAB L100.2200 19-41 % Low LY% 15.7 LAB L100.2300 0-10 % High MONO% 11.3 LAB L100.2400 0-5 % Normal EO% 0.2 LAB L100.2500 0-1 % Normal BASO% 0.2 LAB L100.2550 0.0-0.9 % Normal IM GRAN % 0.500 Result Comment: IG% - Immature Granulocytes (promyelocytes, myelocytes and metamyelocytes) > 1% indicates that a LEFT SHIFT is Present. LAB L100.2620 2.0-7.7 X10 3/uL Normal Absolute Neut 5.8 LAB L100.2720 0.83-4.51 X10 3/ul Normal Absolute Lymph 1.27 Performed By: #### L100.0100 #### [facility] [address] [place], [address] BASIC METABOLIC Collected: 04/30/2018 Status: F Source: SECOR PROFILE ([facility]) 6:00 AM [facility] REPOS[facility] Order Comment: SPECIMEN OBTAINED FROM LINE DRAW TYPE CODE TESTS RESULT OUT OF RANGE REFERENCE UNITS LAB L501.0100 74-106 mg/dL Normal GLU 91 Result Comment: Please note revised GLUCOSE reference range effective 2017. LAB L501.1000 7-18 mg/dL Low BUN 3 LAB L501.1100 0.55-1.02 mg/dL Low CREAT,SERUM 0.54 Result Comment: The validity of the calculated GFR AND GFRAA in patients over 70 years has not been determined. Clinical correlation is essential. LAB L501.1110 >60 mL/min Normal EST GFR 127 Result Comment: Non- GFR Calc LAB L501.1115 >60 mL/min Normal EST GFR - AA 153 Result Comment: GFR Calc LAB L501.1255 ml/min Normal Estimated CRCL 115.04 LAB L501.1300 10-20 RATIO Low BUN/CRE 5.6 LAB L501.2200 8.5-10 mg/dL Low .1 CA 7.7 LAB L501.5300 136-14 mmol/L 5 NA Normal 142 LAB L501.5600 3.5-5. mmol/L 1 K Normal 3.6 LAB L501.5900 98-107 mmol/L High CL 111 LAB L501.6100 21.0-3 mmol/L 2.0 CO2 Normal 25.0 LAB L501.6200 5-15 GAP Normal 6 Performed By: #### L500.2500 #### [facility] [address] [place], [address] ABDOMEN/PELVIS WITH Observed: 04/29/2018 Status: F Source: SECOR CONTRAST 4:58 PM [facility] REPOS[facility] Imaging Services [address] [place] [address] Abdomen/Pelvis WITH Contrast MR#: [id number] Acct: [id number] Name: LINDSAY ANTUNEZ Rep #: [id number] : 1965 F 52 From: Victor M Aleman MD PCP: Care Physician, No Primary Status: ADM IN Study: Abdomen/Pelvis WITH Contrast Date of Exam: 04/29/18 Exam# [id number] Ordering Dr: Iglesia Mueller DO STUDY: CT ABDOMEN AND PELVIS WITH CONTRAST REASON FOR EXAM: Female, 52 years old. EPIGASTRIC Pain, nausea AND VOMITING SINCE THIS AM Hx: breast CANCER WITH METS TO Brain, bone AND LYMPH Nodes, pt GETTING CHEMO NOW AND THOMAS HAD RADIATION RADIATION DOSAGE (If Supplied By Facility): CTDIvol = ( 13.67 ) mGy, DLP = ( 537.39 ) mGycm TECHNIQUE: Transaxial images were obtained from the dome of the diaphragm to the symphysis pubis with oral contrast. 100ML ml of Isovue 300 contrast was administered. Sagittal and coronal images were reconstructed. Individualized dose optimization techniques were used for this CT. COMPARISON: CT Abdomen/Pelvis Oct 25 2017 2:39pm FINDINGS: The visualized lung bases are unremarkable. The visualized portions of the heart are within normal limits. There is evidence for a biopsy clip in the left breast. Likely due to timing of the IV bolus, the previously noted nodules in the liver are difficult to visualize. Normal gallbladder and extrahepatic biliary system. Normal spleen. Normal pancreas. Normal bilateral adrenal glands. Normal right kidney. Normal left kidney. Retroaortic left renal vein. Normal visualized stomach. There is diffuse wall thickening and inflammation of the terminal ileum. This suggests the terminal ileitis. 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 Normal colon. The appendix is visualized and appears normal. There are calcifications of the abdominal aorta and vascular structures. This is consistent for atherosclerotic disease. There is no abdominal aortic aneurysm. Normal inferior vena cava. Subcentimeter mesenteric lymph nodes. Normal urinary bladder. Normal visualized uterus. Normal-appearing ovaries. Enlargement left upper abdominal wall soft tissue nodule. Series 2 image 41. It measures 19 x 13 mm. There are degenerative changes of the osseous structures. Diffuse lytic and sclerotic lesions throughout the bones consistent for metastatic disease. There is scoliosis of the lumbar spine. CT/Abdomen/Pelvis WITH Contrast IMPRESSION: There is diffuse wall thickening and inflammation of the terminal ileum. This suggests the terminal ileitis. 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 Enlargement left upper abdominal wall soft tissue nodule. Diffuse lytic and sclerotic lesions throughout the bones consistent for metastatic disease. Likely due to timing of the IV bolus, the previously noted nodules in the liver are difficult to visualize. Other findings as above. Electronically Signed: Victor M Aleman MD at 20:53 EDT , Service support , CC: No Primary Care Physician; Iglesia Mueller DO Wheel Truer: Signed Observed: 04/29/2018 Status: F Source: SECOR CDIFF (MOLECULAR) 4:55 PM [facility] REPOS[facility]ORY Is the patient receiving laxatives? N New/unexplained onset of 3 or more stools in past 24 hrs? Y Cdiff-Molecular Normal Reference Range = Negative C. Diff DNA Negative- No toxigenic C. Diff DNA Detected NAAT METHOD Testing was performed using nucleic acid amplification Performed By: #### M100.6796 #### [facility] [place] [address] [place], [address] Observed: 04/29/2018 Status: F Source: SECOR ENTERIC PATHOGEN 4:55 PM [facility] PANEL STOOL REPOSITORY PANEL STOOL Normal Reference Range = Not Detected Not detected for Campylobacter group, Salmonella species, Shigella species, Vibrio Group, Yersinia enterocolitica, EHEC (Shiga Toxin 1, Shiga Toxin 2), Norovirus Gl/Gll, and Rotavirus A. Other common stool pathogens are not detected on this panel include: Aeromonas/Plesiomonas or parasites. Order testing for these organisms separately if suspected. This is an amplified DNA test which makes it both specific and sensitive. CAMPYLOBACTER Not Detected Salmonella Not Detected Shigella sp. Not Detected Shiga Toxin Not Detected Yersinia Not Detected VIBRIO Not Detected Norovirus Not Detected Rotavirus Not Detected Performed By: #### M100.637 #### [facility] [address] [facility] [facility] [place], [address] HISTORY AND PHYSICAL Observed: 04/29/2018 Status: F Source: SECOR EXAM 3:48 PM [facility] Medical Records Department [address] [place] [address] History and Physical 04/29/18 1535 MR#: [id number] Acct: [id number] Name: LINDSAY ANTUNEZ Rep #: [id number] : 1965 52 From: Iglesia Mueller DO PCP: Care Physician, No Primary Status: REG ER Y Location: ED Problem List (1) Nausea AND vomiting Status: Acute (2) SIRS (systemic inflammatory response syndrome) Status: Acute History of Present Illness Date of Admission: 04/29/18 Chief Complaint: intractable nausea vomiting. The patient is a 52 year old F presents with intractable N/V. N/V have been ongoing for months. Subjectively worse since WBR. Eats very little: 2 Pop Tarts in past 8 days. No taste, but can smell still. Had temp this AM of 100.2. No SOB. No congestion. Pt also has abdominal pain that is epigastric radiates down to umbilicus.[] Past Medical History Past Medical History (Chronic Problems): Chronic Problems (Last Reviewed 04/19/18 @ 15:01 by Georgia Gan) Anemia (Chronic) COPD (chronic obstructive pulmonary disease) (Chronic) History of tubal ligation (Chronic) Brain metastases (Chronic) Cerebral aneurysm (Chronic) Primary cancer of left female breast (Chronic) Regional lymph node metastasis present (Chronic) Bone metastases (Chronic) Medical History: Medical History (Last Reviewed 04/29/18 @ 15:39 by Iglesia Mueller DO) Primary cancer of left female breast (Chronic) C50.912 Regional lymph node metastasis present (Chronic) C77.9 Bone metastases (Chronic) C79.51 Pneumonia J18.9 port placement Allergies No Known Allergies Allergy (Verified 04/29/18 12:00) Home Medications: Ambulatory Orders Medication Instructions Recorded Hydrocodone Bitart/Apap 5-325 1 tablet PO Q6H PRN PRN #10 tablet 10/18/17 Surgical History: Surgical History (Last Reviewed 04/29/18 @ 15:39 by Iglesia Mueller DO) History of section Z98.891 Hx of tonsillectomy Z98.890, Z90.89 Smoking Status: Former smoker - quit September 2017 Tobacco Use: Non-smoker Alcohol: None Drugs: None - *Family History Maternal Family History: Family History (Last Reviewed 04/19/18 @ 15:01 by Georgia Gan) Mother Heart disease Father Heart disease Aunt Breast cancer Review of Systems Constitutional: Reports: Anorexia, Chills, Fever. Denies: Night Sweats Eyes: Reports: Blurred vision. Denies: Double vision HEENT: Denies: Head Aches, Sinus Congestion, Sinus Drainage Cardiovascular: Denies: Chest Pain, Palpitations Respiratory: Denies: Cough, Shortness of breath at rest, Sputum production Gastrointestinal: Reports: Abdominal Pain, Nausea, Vomiting. Denies: Diarrhea Genitourinary: Denies: Dysuria Musculoskeletal: Denies: Arm Pain, Back Pain, Foot Pain, Hand Pain Skin: Denies: Rash, Wounds Neurological: Reports: Blurred vision. Denies: Balance problems, Double vision, Slurred speech, Confusion Psychiatric: Denies: Anxiety, Depression Hematologic/ Lymphatic: Reports: Easy Bleeding. Denies: Easy Bruising, Hx of blood clot Comment: All ROS negative except as mentioned above and in the HPI. VTE Information - Inpt Only VTE Present on Admission: No VTE Mechan Device Prophylaxis: None VTE Pharm Prophylaxis ordered?: Yes Patient Problems: Active and Suspected Problems (Last Reviewed 04/19/18 @ 15:01 by Georgia Gan) Nausea AND vomiting (Acute) SIRS (systemic inflammatory response syndrome) (Acute) - Physical Exam General: Alert, Cooperative HEENT: Atraumatic, Normocephalic Oral: Moist Mucosa, No Gingival or Mucosal Lesions/ Ulcerations Neck: No Nodes, Thyroid Normal Size and Texture Lungs: Clear to auscultation, Normal air movement, No rhonchi, No wheeze Cardiovascular: Regular rate, Regular Rhythm, Normal S1, Normal S2, No murmurs Abdomen: Bowel Sounds Present, Soft, Non-Distended, Tender - epigastric Extremities: No edema, No Calf Tenderness Skin: No rashes, No breakdown Musculoskeletal: No Tenderness to Palpation of Joints or Extremities, No Muscle Wasting Neurological: Neuro grossly intact, Muscle tone normal Psych/Mental Status: Normal Affect, Appropriate Vital Signs Temp Pulse Resp BP Pulse Ox 36.1 C L 94 16 136/91 H 97 04/29/18 12:01 04/29/18 14:45 04/29/18 14:45 04/29/18 14:45 04/29/18 12:01 Oxygen Delivery Method Room Air Weight: 58.967 kg Body Mass Index (BMI) 25.4 Laboratory Tests Past 24 Hrs WBC RBC Hgb Hct MCV MCH MCHC RDW RDW Differential Plt Count MPV Immature Gran % (Auto) Neut % (Auto) Lymph % (Auto) Clinical Impression(s) from Imaging Studies Chest X-Ray 04/29/18 13:33 IMPRESSION: No evidence of acute cardiopulmonary process. Electronically Signed: Mark Rios DO at 13:50 EDT , Service support , Assessment/Plan All Active Problems (Last Reviewed 04/19/18 @ 15:01 by Georgia Gan) Lower extremity edema (Acute) Fatigue (Acute) Anorexia (Acute) Intractable nausea and vomiting (Acute) Nausea AND vomiting (Acute) SIRS (systemic inflammatory response syndrome) (Acute) Educational circumstance (Acute) Frontal headache (Acute) Cancer related pain (Acute) Rash (Acute) Antineoplastic chemotherapy induced anemia (Acute) Chemotherapy management, encounter for (Acute) 1. Intractable N/V * unclear etiology, but could be related w cerebellar mets, gastritis, chemo * IV PPI * CT A/P * supportive mgmt 2. SIRS * POA * leukocytosis skewed given Granix * questionable UTI, so no formal dx of sepsis yet 3. Possible UTI * given immunocompromised state, will start CTX * UA + LE, nitrates and bacteria, but WBCs are minimal. * follow up BCx and UCx * if Cx negative, then DC abx 4. Stage 4 breast cancer * undergoing chemo, immunotherapy and XRT * consult oncology for further guidance and recs * reinforced that treatment is not curative, but palliative * encouraged pt to address prognosis with oncology 5. DVT proph: LMWH 6. Advanced directives: Discussed CPR with patient. She wishes to be FULL CODE status at this time. Code Visit Inpatient E AND M: 39071 Init Hosp L3 04/29/18 1548 <Electronically signed by Iglesia Mueller DO> Date Iglesia Mueller DO Cosigner Signature: Date (if applicable) CC: No Primary Care Physician; Iglesia Mueller DO; Carolina Pak MD Signed EMERGENCY DEPARTMENT Observed: 04/29/2018 Status: F Source: SECOR SUMMARY 3:40 PM [facility] RE[facility] Medical Records Department [address] [facility] [place] [address] Emergency Department Summary 04/29/18 1238 MR#: [id number] Acct: [id number] Name: LINDSAY ANTUNEZ Rep #: [id number] : 1965 52 From: Rossana Varela MD PCP: Care Physician, No Primary Status: REG ER - ER Visit Summary Date of Service: 04/29/18 Chief Complaint: [] Fever chemotherapy radiation therapy to brain metastatic breast cancer vomiting History of Present Illness: The patient is a 52 F [] patient has history of metastatic breast cancer diagnosed in September 2017, she was stage IV metastasis to lymph nodes later to brain, she had biopsy in the left breast, then metastases to the brain she ended up having radiation therapy locally at [place] also targeted radiation brain therapy at [facility] she last had chemotherapy April 11 approximately, she remains stage IV by her history she indicates she has had fevers and now she has had protracted vomiting and diarrhea she presents for evaluation no obvious other exposures, no skin rashes Physical Examination: [] She is resting comfortably in the bed her vital signs are within normal range family members had a dog in the room I explained to him that given her concern for neutropenia the fact that we are following neutropenic precautions it is best that the animal be removed from her room and the family agreed took the dog to the waiting room She is awake and alert she has no hair her HEENT is unremarkable nose and throat are clear the neck is supple the lungs are clear the heart tones are unremarkable port right chest is nontender the abdomen is soft and nontender upper lower extremities unremarkable neurologic she is awake moving all 4 She has had intermittent vomiting with this disease process she recently had multiple screening labs including brain MRI and other studies for prognosis Test Results: [] Emergency Department Course and Treatment: [] There is a concern for neutropenia given the fevers and her recent therapy etc. we will follow neutropenic precautions cultures are obtained management of her vomiting screening labs will review the studies to see if there is any signs of STATE PILOT causes to her vomiting such as edema or shift, in fact reviewing the MRI recently done 04/23/2018 shows interval improvement of the lesions no other gross abnormality see that report Patient white count returns at 27,000, her rest of her labs are generally unremarkable for her see those reports her UA is pending chest x-ray shows no obvious source of infection, she is remained A febrile here normotensive, we have obtained cultures, IV antibiotics have been started IV fluids and we have asked the hospitalist see the patient for admission Treatment Plan: [] Disposition: [] Admit stable Impression: [] Febrile illness, history of metastatic breast cancer, chemotherapy and radiation therapy This note was generated with Waddle dictation software. It may contain incorrect words, spelling, and punctuation that were not noted in review of the chart prior to signing ED Disposition - Plan for ED Patient: Chief Complaint: Nausea/Vomiting/Diarrhea Referrals: Care Physician,No Primary [Primary Care Provider] - What to do if you have Problems For any increased pain, shortness of breath, bleeding, nausea or vomiting, chest pain, or any unexpected problems, contact your Primary Care Provider. Call [facility] ([phone]) or report to the closest Emergency Room. Call 911 if necessary. 04/29/18 9000 <Electronically signed by Rossana Varela MD> Date Rossana Varela MD Cosigner Signature (If Indicated): Date CC: No Primary Care Physician URINALYSIS, COMPLETE Collected: 04/29/2018 Status: F Source: KRYSTAL 2:50 PM [facility] Order Comment: Order Date: 04/29/18 How was Urine Obtained? CLEAN CATCH TYPE CODE TESTS RESULT OUT OF RANGE REFERENCE UNITS LAB L400.3000 Yellow COLOR Normal Yellow LAB L400.3050 Clear Normal CLARITY Cloudy LAB L400.3200 Normal mg/dl Normal GLUCOSE, UR Normal LAB L400.3300 Negative mg/dL High BILIRUBIN URINE 1 Result Comment: COLOR OF URINE MAY AFFECT DIPSTICK RESULTS. LAB L400.3400 Negative mg/dl KETONE UR High 5 LAB L400.3465 1.002-1.030 SP.GR. Normal DIPSTX 1.020 LAB L400.3550 5.0 - 8.0 pH UR Normal 5.0 LAB L400.3600 Negative mg/dl PROT DIPSTX High 30 LAB L400.3700 Normal mg/dl UROBILI High 1 LAB L400.3750 Negative NITRITE UR High Positive LAB L400.3780 Negative /ul OCCULT High BLOOD-UR 10 LAB L400.3800 Negative /ul LEUK High ESTERASE 500 LAB L400.4050 0-5 /hpf WBC Normal 10-25 SEEN LAB L400.4100 0-5 /hpf RBC-UA Normal 0 SEEN LAB L400.4150 5-10 /hpf SQUAM EPI Normal 5-10 SEEN LAB L400.4300 None Seen /hpf BACTERIA Normal 3+ LAB L400.4350 <or=2+ /hpf MUCUS, Normal URINE 1+ LAB L400.4200 0-5 /hpf Normal TRANSITIONAL EP 0-5 SEEN LAB L400.4400 0-5 /lpf HYALINE Normal CAST 5-10 SEEN Performed By: #### L400.0001 #### [facility] [address] [place], [place], [address] Observed: 04/29/2018 Status: F Source: KRYSTAL CULTURE, URINE 2:20 PM [facility] Order Date: 04/29/18 Urine Culture ORGANISM 1: Mixed Gram Positive Organisms Shelby Count 25,000-50,000 MIX CULTURE Mixed contaminants. Submit a new specimen if indicated. Performed By: #### M100.0650 #### [facility] [address] [facility] [place], [place], [address] Observed: 04/29/2018 Status: F Source: KRYSTAL CULTURE, BLOOD (WB) 1:45 PM [facility] BC No growth in 5 days. Performed By: #### M200.1000 #### [facility] [address] [place], [place], [address] CHEST 1 VIEW Observed: 04/29/2018 Status: F Source: KRYSTAL (PORTABLE) 1:27 PM [facility] [address] [place] [address] Chest 1 View (Portable) MR#: [id number] Acct: [id number] Name: LINDSAY ANTUNEZ Rep #: [id number] : 1965 F 52 From: Mark Rios DO PCP: Care Physician, No Primary Status: REG ER Study: Chest 1 View (Portable) Date of Exam: 04/29/18 Exam# [id number] Ordering Dr: Rossana Varela MD STUDY: X-RAY CHEST REASON FOR EXAM: Female, 52 years old. Shortness of breath. TECHNIQUE: Single AP portable view of the chest. COMPARISON: 18 October 2017 FINDINGS: Right port in place with tip overlying the mid SVC. The lungs are clear and expanded. There is no demonstrated pleural abnormality. Normal size heart. Normal mediastinum and anjel. Normal visualized pulmonary arteries. Normal visualized aortic arch and descending thoracic aorta. Normal visualized thoracic spine. Normal visualized ribs, clavicles, and shoulders. There is no demonstrated abnormality of the visualized soft tissue structures of the upper abdomen. RAD/Chest 1 View (Portable) IMPRESSION: No evidence of acute cardiopulmonary process. Electronically Signed: Mark DO Gabriel at 13:50 EDT , Service support , CC: MD Alma Delia Varela; No Primary Care Physician Wheel Truer: Signed CBC W/DIFF, AUTOMATED Collected: 04/29/2018 Status: F Source: KRYSTAL 12:50 PM [facility] TYPE CODE TESTS RESULT OUT OF RANGE REFERENCE UNITS LAB L100.1000 4.4-11.0 K/mm3 High WBC 26.7 LAB L100.1200 4.2-5.4 M/mm3 Normal RBC 4.64 LAB L100.1300 12.0-15.0 g/dl Normal HGB 14.5 LAB L100.1400 37-47 % Normal HCT 44.9 LAB L100.1500 81-99 fL Normal MCV 96.8 LAB L100.1600 27.0-32.0 pg Normal MCH 31.3 LAB L100.1700 32-36 g/gl Normal MCHC 32.3 LAB L100.1810 11.6-14.6 % Normal RDW CV 14.1 LAB L100.1820 35.1-43.9 fl High RDW SD 48.8 LAB L100.1900 150-450 K/mm3 Normal PLT 290 LAB L100.2000 6.2-12.0 fl Normal MPV 9.4 LAB L100.2100 47-70 % High NEUT% 89.3 LAB L100.2200 19-41 % Low LY% 2.2 LAB L100.2300 0-10 % Normal MONO% 7.9 LAB L100.2400 0-5 % Normal EO% 0.0 LAB L100.2500 0-1 % Normal BASO% 0.1 LAB L100.2550 0.0-0.9 % Normal IM GRAN % 0.500 Result Comment: IG% - Immature Granulocytes (promyelocytes, myelocytes and metamyelocytes) > 1% indicates that a LEFT SHIFT is Present. LAB L100.2620 2.0-7.7 X10 3/uL High Absolute Neut 23.8 LAB L100.2720 0.83-4.51 X10 3/ul Low Absolute Lymph 0.59 LAB L100.4500 Normal SMEAR COMMENT SCANNED Result Comment: NEUTROPHILIA NOTED Performed By: #### L100.0100 #### [facility] [address] [place], [address] BASIC METABOLIC Collected: 04/29/2018 Status: F Source: SECOR PROFILE (BMP) 12:50 PM [facility] TYPE CODE TESTS RESULT OUT OF RANGE REFERENCE UNITS LAB L501.0100 74-106 mg/dL Normal GLU 104 Result Comment: Fasting Glucose result from 100 to 125 mg/dL suggests IMPAIRED HOMEOSTASIS per A.D.A. criteria. Please note revised GLUCOSE reference range effective 2017. LAB L501.1000 7-18 mg/dL Low BUN 6 LAB L501.1100 0.55-1.02 mg/dL Normal CREAT,SERUM 0.67 Result Comment: The validity of the calculated GFR AND GFRAA in patients over 70 years has not been determined. Clinical correlation is essential. LAB L501.1110 >60 mL/min Normal EST GFR 99 Result Comment: Non- GFR Calc LAB L501.1115 >60 mL/min Normal EST GFR - AA 119 Result Comment: GFR Calc LAB L501.1255 ml/min Normal Estimated CRCL 72.15 LAB L501.1300 10-20 RATIO Low BUN/CRE 9.0 LAB L501.2200 8.5-10 mg/dL Normal .1 CA 9.2 LAB L501.5300 136-14 mmol/L Normal 5 NA 138 LAB L501.5600 3.5-5. mmol/L Normal 1 K 3.6 LAB L501.5900 98-107 mmol/L Normal CL 104 LAB L501.6100 21.0-3 mmol/L Normal 2.0 CO2 26.0 LAB L501.6200 5-15 Normal GAP 8 Performed By: #### L500.2500, L500.3400, L501.2450, L501.4010 #### [facility] [address] [place], [address] LIVER PROFILE Collected: 04/29/2018 Status: F Source: SECOR 12:50 PM [facility] TYPE CODE TESTS RESULT OUT OF RANGE REFERENCE UNITS LAB L501.1500 6.4-8.2 g/dL Normal T PROT 7.6 LAB L501.1800 3.2-5.0 g/dL Normal ALB 3.7 LAB L501.1950 2.2-4.2 g/dL Normal GLOB 3.9 LAB L501.4100 15-37 U/L Normal AST 15 LAB L501.4305 45-117 U/L Normal ALK P 83 LAB L501.4405 13-56 U/L Normal ALT 18 LAB L501.4600 0.20-1.00 mg/dL Normal T BILI 0.30 LAB L501.4700 0.00-0.30 mg/dL Normal D BILI 0.07 Performed By: #### L500.2500, L500.3400, L501.2450, L501.4010 #### [facility] [address] [facility] [place], [place], [address] LIPASE Collected: 04/29/2018 Status: F Source: SECOR 12:50 PM [facility] TYPE CODE TESTS RESULT OUT OF RANGE REFERENCE UNITS LAB L501.2450 73-393 U/L Normal LIPASE 146 Performed By: #### L500.2500, L500.3400, L501.2450, L501.4010 #### [facility] [address] [place], [address] TROPONIN-I Collected: 04/29/2018 Status: F Source: SECOR 12:50 PM [facility] TYPE CODE TESTS RESULT OUT OF RANGE REFERENCE UNITS LAB L501.4010 <0.045 ng/mL Normal < 0.015 TROPONIN-I Result Comment: TROPONIN-I EXPECTED VALUES <0.045 Negative 0.045 - 0.590 Consistent with Cardiac Damage > OR = 0.600 Critical Value Not every elevated troponin is indicative of AL. These values should be used with clinical judgement in examining the patient's clinical picture for diagnosis. To establish a diagnosis of AL versus myocardial injury, there must be a demonstrated rise and/or fall in the troponin values, in addition to ischemic symptoms, EKG changes, new regional wall motion abnormality, and/or angiographical evidence. PLEASE NOTE: REFERENCE RANGES EDITED 18 Performed By: #### L500.2500, L500.3400, L501.2450, L501.4010 #### [facility] [address] [place], [address] LACTIC ACID Collected: 04/29/2018 Status: F Source: SECOR 12:50 PM [facility] Order Comment: Yes/No query for Sepsis Lactate Rule Y TYPE CODE TESTS RESULT OUT OF RANGE REFERENCE UNITS LAB L503.6005 0.4-2.0 mmol/L Normal LACTIC ACID 1.2 Performed By: #### L503.6005 #### [facility] [address] [facility] [place], [address] ECHOCARDIOGRAM COMPLETE Observed: 04/26/2018 Status: F Source: SECOR 1:05 PM [facility] [address] [place] [address] Echo Complete 04/26/18 1054 MR#: [id number] Acct: [id number] Name: LINDSAY ANTUNEZ Rep #: [id number] : 1965 52 From: Amilcar Rees MD Attending Dr: Carolina Pak MD Status: REG CLI Ordering Dr: Carolina Pak MD Date: 04/26/18 Location: [place] Sex: F C Admitted: Reason For Study: HIGH RISK MEDS Procedure This was a 2D Doppler, Color Flow transthoracic echocardiogram. The exam was of adequate technical quality. Exam performed in department. Left Ventricle Normal LV size. Left ventricular systolic function is normal. The estimated ejection fraction is 65 %. Normal diastology for age. No regional wall motion abnormalities noted. Right Ventricle Normal RV size. Normal systolic function. Atria Normal left atrium. Normal right atrium. No doppler evidence for ASD. Mitral Valve There is no mitral annular calcification. Normal mitral valve. Trivial mitral valve insufficiency. Tricuspid Valve Normal tricuspid valve. Mild tricuspid valve insufficiency. Right ventricular systolic pressure estimated to be 34 mmHg. Aortic Valve Trisinus/trileaflet aortic valve. Normal aortic valve. Pulmonic Valve The pulmonic valve is not well visualized. Trivial pulmonic valve insufficiency. Great Vessels Normal sized aortic root. Pericardium/Pleural No pericardial effusion. MMode/2D Measurements AND Calculations LVIDd: 3.7 cm IVSd: 0.92 cm Ao root diam: 2.8 cm LVIDs: 2.6 cm LVPWd: 0.84 cm LA dimension: 2.8 cm FS: 28.9 % LAV(MOD-bp): 30.5 ml LVAd ap4: 28.0 cm2 SV(MOD-sp4): 49.8 ml LAV(MOD-bp) Indexed: 19.5 ml/m2 EDV(MOD-sp4): 79.2 ml LAV(MOD-sp2): 35.0 ml EDV(sp4-el): 82.7 ml LAV(MOD-sp4): 27.1 ml LVAs ap4: 15.4 cm2 ESV(MOD-sp4): 29.4 ml ESV(sp4-el): 30.6 ml EF(MOD-sp4): 62.9 % EF(sp4-el): 63.0 % SV(sp4-el): 52.0 ml LA A4 area: 12.4 cm2 RA A4 area: 11.0 cm2 Time Measurements MV dec time: 0.23 sec Doppler Measurements AND Calculations MV E max a[place]: 69.1 cm/sec Lat Peak E' [place]: 10.9 cm/sec Med Peak E' [place]: 7.9 cm/sec MV A max [place]: 66.4 cm/sec E/E' lat: 6.4 E/E' med: 8.8 MV E/A: 1.0 Ao V2 max: 106.8 cm/sec LV V1 max: 100.6 cm/sec PA V2 max: 92.9 cm/sec Ao max P.6 mmHg LV V1 max P.0 mmHg TR max alexandria: 278.9 cm/sec TR max P.1 mmHg Interpretation Summary Left ventricular systolic function is normal. The estimated ejection fraction is 65 %. Trivial mitral valve insufficiency. Mild tricuspid valve insufficiency. Trivial pulmonic valve insufficiency. Right ventricular systolic pressure estimated to be 34 mmHg. Normal diastology for age. Ordering Physician: Carolina Pak Referring Physician: Carolina Pak Performed By: Julienne Calvert RDCS 04/26/18 1305 Date Amilcar Rees MD CC: No Primary Care Physician; Carolina Pak MD Date Dictated: 04/26/18 1054 Date Transcribed: 04/26/18 1305 Wheel Truer: Signed BONE SCAN WHOLE Observed: 04/26/2018 Status: F Source: KRYSTAL BODY 10:20 AM [facility] [address] [place] [address] Bone Scan Whole Body MR#: [id number] Acct: [id number] Name: LINDSAY ANTUNEZ Rep #: [id number] : 1965 F 52 From: Juan Blount DO PCP: Care Physician, No Primary Status: REG CLI Study: Bone Scan Whole Body Date of Exam: 04/26/18 Exam# [id number] Ordering Dr: Carolina Pak MD CLINICAL: 52-year-old female with reported history of carcinoma of the breast metastatic to bone. WHOLE BODY 99m Tc MDP RADIONUCLIDE BONE SCINTIGRAPHY COMPARISON: Previous whole body bone scintigraphy study dated 10/30/2017 FINDINGS: Following the intravenous administration of 24.6 mCi of 99m Tc MDP, whole body bone images reveal: 1. Multifocal increased radiopharmaceutical concentration remains evident throughout the appendicular and axial skeletal structures, currently demonstrated in the periorbital and right-left frontal calvarium with apparent coalescence in multiple locations. 2. An increase in tracer concentration is currently defined in the bilateral elbow and wrist articulations. 3. The remaining skeletal structures are scintigraphically unremarkable with normal-appearing renal images and urinary bladder activity identified. NM/Bone Scan Whole Body IMPRESSION: 1. The multiple foci of increased radiopharmaceutical concentration remaining disseminated throughout the axial and appendicular skeleton, the right-left calvarium is commensurate with diffuse skeletal metastatic disease. 2. Degenerative arthritis appears currently expressed in the right and left elbow and wrist articulations. 3. Overall compared to the previous whole body bone scintigraphy study dated 10/30/2017, there is continued demonstration of diffuse skeletal metastatic disease more confluent on the current examination in multiple locations as defined above. Electronically Signed: Juan Blount DO at 22:09 EDT Tel , Service support , CC: No Primary Care Physician; Carolina Pak MD Wheel Truer: Signed BRAIN W/WO CONTRAST Observed: 04/23/2018 Status: F Source: KRYSTAL 3:49 PM [facility] [address] [place] [address] Brain W/WO Contrast MR#: [id number] Acct: [id number] Name: LINDSAY ANTUNEZ Rep #: [id number] : 1965 F 52 From: Gilles Doan MD PCP: En Granados III, MD Status: REG CLI Study: Brain W/WO Contrast Date of Exam: 04/23/18 Exam# [id number] Ordering Dr: Mar Medrano STUDY: MRI BRAIN WITH AND WITHOUT CONTRAST REASON FOR EXAM: Female, 52 years old. Headaches and nausea with breast cancer treated TECHNIQUE: Standardized multiplanar fat and water weighted pulse sequences were obtained. 6 ml of Gadavist contrast material was administered intravenously for the contrast portion of the examination. COMPARISON: January 29, 2018 FINDINGS: Normal size of the ventricles and extra-axial spaces for the patient's age. Minor periventricular white matter ischemic changes without evidence for acute infarct.. Mild chronic ischemic changes within the jose Normal bilateral basal ganglia. Normal thalami. There is no extra-axial fluid accumulation. Normal flow voids within the major intracranial circulation suggesting patency by spin echo criteria. Normal venous enhancement. There is no enhancing intra-axial or extra-axial abnormality. Normal sella turcica, pituitary gland, infundibular stalk, optic chiasm and hypothalamus. Normal tectal plate and pineal gland. Normal midbrain, and medulla. Small homogeneously enhancing lesions in the right cerebellar hemisphere.. Normal basal cisterns. Normal bilateral temporal bones. Normal bilateral internal auditory canals. Fluid signal within the right mastoid air cells consistent with inflammatory disease No demonstrated orbital abnormality, within the constraints of a routine brain study. Normal visualized paranasal sinuses. Normal calvarium and skull base. Normal visualized soft tissue structures. Normal visualized upper cervical spine. There are fewer metastatic nodules noted when compared with previous study MRI/Brain W/WO Contrast IMPRESSION: Mild chronic periventricular white matter and pontine ischemic changes without evidence for acute infarct. Persistent small cerebellar metastasis however there is generalized interval improvement in the number of metastatic lesions since previous exam Electronically Signed: Gilles Doan MD at 19:57 EDT , Service support , CC: En Granados III, MD; Mar Medrano NP Wheel Truer: Signed ONCOLOGY VISIT REPORT Observed: 04/19/2018 Status: F Source: SECOR 4:15 PM [facility] [place] [address] [place] [address] OFFICE VISIT Date of Service: 04/19/18 1507 MR#: [id number] Acct: [id number] Name: LINDSAY ANTUNEZ Rep #: [id number] : 1965 From: Mar Medrano NP-C Age/Sex: 52/F Location: ONC Status: Signed Subjective - Date of Service Date of Service:: 04/19/18 - Chief Complaint Acute visit- Nausea/vomiting - History of Present Illness Patient is a 52-year-old female perimenopausal who never had screening mammographies and became aware of a painless lump in the left breast and a second lump in the left axilla in August 2017. She did not seek any medical care until October 09, 2017 when she developed chest pain and dyspnea. She was seen in [facility] emergency room, diagnosed and treated for pneumonia and referred to surgical consultation when the breast mass was noted on exam. Mammography and ultrasound examination confirmed the palpable abnormalities. On October 12, 2017 she underwent biopsies from the left breast mass and the left axilla that confirmed an invasive lobular carcinoma nuclear grade 3 ER negative, DC negative, HER-2 overexpressed 3+. On October [address] scan of the chest that showed emphysematous changes and diffuse bony lytic lesions throughout the thoracic and lumbar vertebrae and lower cervical segments, lytic lesions in humeral heads bilaterally, sternum, clavicles, left scapula and several ribs bilaterally. CT scan of the abdomen and pelvis showed an indeterminate lesion too small to characterize in the liver but no other visceral disease, widespread bony metastatic disease was again noted. A bone scan October 2017 initial staging showed diffuse skeletal metastatic disease. A bone biopsy October 27, 2017 confirmed metastatic cancer of breast origin. Brain MRI showed small multiple metastatic lesions one in the posterior right internal capsule, multiple bilateral small cerebellar metastases. CA 27-29 not elevated at diagnosis and therefore will not aid in follow-up. Her family history is notable for 2 maternal aunts with breast cancers but no first-degree relatives was breast cancer Treatment: Focal radiation therapy to the sites of disease in the [facility] at [facility] 10/2017 Whole brain radiation therapy 3000 cGy of 6 MV photons in 10 fractions 02/28/18- 03/13/18. Systemic therapy was held during whole brain radiation. [id number]-[id number]-Zptbaddd 11/29/2017- - Interval History The patient is presenting to clinic accompanied by spouse for an acute visit at her request with c/o nausea/vomiting. Began intractable nausea/vomiting 4 days ago. States I don't usually get sick from chemo Describes 3-4 episodes of emesis each day, unable to keep down even sips of liquids. Administered Zofran 4 mg at 1300 today. Discontinued dexamethasone on 04/10/18 as advised. Was evaluated by Dr. Anderson earlier today and pain management course changed to Fentanyl 25 mcg with the intent to lessen if not eradicate need for PO analgesia. She believes taking the hydrocodone on an otherwise empty stomach these last four days compounded the nausea. Also experiences worsening of nausea after administration of memantine. C/o right sided frontal headaches typically last 1 hour and resolved without intervention. Also notes imbalance and occasional unsteady gait but has not fallen. Denies fever/chills, vision changes, worsening of SOB, constipation/diarrhea and swelling/pain of her extremities. - Past Medical/Social History Past Medical History Past Medical History: Pneumonia Cancer: Breast cancer Other Cancer History: Radiation to brain Social History Social History: No changes Smoking Status Former smoker Review of Systems Constitutional:: Reports: Weakness, Fatigue. Denies: Fever, Sweats, Weight loss, Appetite change, Chills Cardiovascular:: Reports: Dyspnea on exertion - unchanged from baseline. Denies: Chest pain, Palpitations, Orthopnea, PND, Shortness of breath Respiratory: Denies: Cough, Hemoptysis, Shortness of Breath, Wheezing Gastrointestinal:: Reports: Nausea, Vomiting. Denies: Abdominal pain, Diarrhea, Constipation - LBM 04/19/18, Hematochezia Genitourinary: Denies: Dysuria, Hematuria, Urinary frequency, Flank pain Musculoskeletal:: Reports: Back pain Skin: Denies: Rash, Skin Changes, Wounds Neurological:: Denies: Headache, Dizziness, Numbness, Tingling, Visual changes, Tinnitus, Hearing loss Psychiatric: Denies: Anxiety, Depression, Homicidal Ideations, Suicidal Ideations Vital Signs Height 5 ft 2 in Weight: 131 lb 12.8 oz - Physical Exam General: Alert, Oriented x3, No apparent distress, - - cushingoid appearance HEENT: Atraumatic, Normocephalic Oropharynx:: Dry mucosa. Negative for: Ulcerated lesions Neck:: Supple, Trachea midline. Negative for: JVD, bilateral Cardiac:: Regular rate, Regular rhythm, Normal S1, Normal S2. Negative for: Murmur Lungs: Clear to auscultation, Excusion symmetrical. Negative for: Rhonchi, Wheezes Abdomen:: Bowel sounds x 4, Soft, Non-tender, Non-distended. Negative for: Hepatosplenomegaly Extremities:: Edema - BLE trace with R=L. Negative for: Cyanosis Neurological: Neuro grossly intact Skin:: - - port right upper chest accessed with gripper covered with DSD. Negative for: Lesions, Rash, Petechiae, Ecchymosis Psychiatric:: Appropriate affect, Euthymic, - - Tearful at times Lymphatics:: Negative for: Cervical lymphadenopathy, Supraclavicular lymphadenopathy, Axillary lymphadenopathy Assessment and Plan 52-year-old female, perimenopausal with stage IV invasive lobular carcinoma of the left breast (T2, N3, M1) with metastases to left axillary, left supraclavicular and left cervical lymph nodes in addition to widespread metastatic disease to bone , an indeterminate lesion in the liver too small to characterize, and multiple bilateral low- volume brain metastases without visible edema. Disease is ER negative, DC negative, HER-2 overexpressed. Echocardiography showed adequacy of cardiac function with an ejection fraction 65%. Plan; #1 Concluded focal brain radiation for metastatic disease in the [facility] PILOT at [facility] 10/2017 then whole brain radiation due to STATE PILOT recurrence in February 2018. #2 She has extensive widespread bony metastatic disease, that in the spine does not impinge on the spinal cord at presentation #3 Pain management consulted to optimize pain control. #4 Systemic therapy, first line treatment this combination of Pertuzumab, trastuzumab and Taxotere given every 3 weeks supported with antiemetics, steroids and primary prophylaxis with Neulasta (patient has extensive metastatic disease involving bones and bone marrow with comorbid COPD making her a higher risk than average for febrile neutropenic sepsis. Plan is for 6-12 cycles of combination therapy depending on response followed by maintenance on Herceptin plus or minus pertuzumab depending on response and tolerance of treatment. She will receive cycle 6 this week with imaging CT chest abdomen pelvis and bone scan to reassess disease status prior to next cycle of treatment #5 Bisphosphonate therapy for metastatic bone disease every 3 months in addition to calcium and vitamin D supplement #6 Anemia partly due to metastatic disease to bone marrow and suppression by systemic chemotherapy. No evidence for iron or B12 deficiency found. #7 Echo (/3M of Rx) last was February 20, 2018 showed preserved EF. Next is due end of April 2018. #8 Intractable nausea/vomiting- Concerning as nausea has been her presenting symptom associated with the finding of STATE PILOT involvement. MRI brain with contrast ordered to r/o progressive disease or edema. D/t cushingoid appearance, will hold on re introduction to steroids unless edema is noted. Discontinue memantine. RX for Zofran 8 mg SL provided. Educated against the use of any other prn antiemetic she may have at home (Compazine) as may lower seizure threshold. To be supported with IV hydration today and tomorrow. She is to call if no improvement. Comorbid conditions COPD, active smoker, poor dentition. Patient was in agreement with aforementioned plan. Case discussed with Dr. Pak who was also in agreement with this plan. Mar Medrano, MSN, REGIONAL ENVIRONMENTAL MANAGER-C, AOCNP Medications: Prescriptions This Visit Medication Instructions Recorded Primary Care Provider: No Primary Care Phys Referring Provider: Carolina Pak MD - Problem List (1) Primary cancer of left female breast Status: Chronic (2) Bone metastases Status: Chronic (3) Cancer related pain Status: Acute (4) Brain metastases Status: Chronic (5) Intractable nausea and vomiting Status: Acute Qualifiers: Vomiting type: unspecified Qualified Code(s): R11.2 - Nausea with vomiting, unspecified 04/19/18 1615 <Electronically signed by Mar Medrano SUPPORTABILITY ENGINEER-C> Date Mar Medrano SUPPORTABILITY ENGINEER-C Cosigner Signature: Date (if applicable) CC: CBC W/DIFF, AUTOMATED Collected: 04/19/2018 Status: C Source: [place] 2:41 PM [facility] REPOSITORY Order Comment: Reason for Laboratory Test . TYPE CODE TESTS RESULT OUT OF RANGE REFERENCE UNITS LAB L100.1000 4.4-11.0 K/mm3 High WBC 25.6 LAB L100.1200 4.2-5.4 M/mm3 Low RBC 3.99 LAB L100.1300 12.0-15.0 g/dl HGB Normal 12.3 LAB L100.1400 37-47 % HCT Normal 39.4 LAB L100.1500 81-99 fL MCV Normal 98.7 LAB L100.1600 27.0-32.0 pg MCH Normal 30.8 LAB L100.1700 32-36 g/gl Low MCHC 31.2 LAB L100.1810 11.6-14.6 % RDW Normal CV 14.2 LAB L100.1820 35.1-43.9 fl High RDW SD 50.8 LAB L100.1900 150-450 K/mm3 PLT Normal 213 LAB L100.2000 6.2-12.0 fl MPV Normal 9.5 LAB L100.3100 MANUAL DIFF CELLS Normal COUNTED 100 LAB L100.3200 47-70 % High SEGS 72 LAB L100.3300 0-5 % High BAND 6 LAB L100.3400 0-1 % High META 4 LAB L100.3500 0-0 High MYELO 6 LAB L100.3800 19-41 % Low LYMPH 9 LAB L100.3900 0-10 % 3 Normal MONOCYTE LAB L100.2620 2.0-7.7 X10 3/uL High Absolute Neut 19.9 LAB L100.2720 0.83-4.51 X10 3/ul Normal Absolute Lymph 2.30 LAB L100.5500 ADEQ PLT Normal EST ADEQUATE LAB L100.7300 ANISO Normal RARE LAB L100.7800 Normal MACROCYTE RARE LAB L100.9900 PATH Normal REV Reviewed Result Comment: Neutrophilic leukocytosis with left shift. Clinical correlation necessary. Chalo Chappell M.D. 04/20/18 AMENDED REPORT 04/20/18 0935 PATH REV previously reported as: January carmelo Performed By: #### L100.0100, L500.4050 #### [facility] [address] [place], [place], [id number] COMPREHENSIVE METABOLIC Collected: 04/19/2018 Status: F Source: [facility] 2:41 PM [facility] REPOSITORY Order Comment: Reason for Laboratory Test . TYPE CODE TESTS RESULT OUT OF RANGE REFERENCE UNITS LAB L501.0100 74-106 mg/dL Normal GLU 79 Result Comment: Please note revised GLUCOSE reference range effective 2017. LAB L501.1000 7-18 mg/dL Low BUN 4 LAB L501.1100 0.55-1.02 mg/dL Normal CREAT,SERUM 0.70 Result Comment: The validity of the calculated GFR AND GFRAA in patients over 70 years has not been determined. Clinical correlation is essential. LAB L501.1110 >60 mL/min Normal EST GFR 94 Result Comment: Non- GFR Calc LAB L501.1115 >60 mL/min Normal EST GFR - AA 114 Result Comment: GFR Calc LAB L501.1255 ml/min Normal Estimated CRCL 76.04 LAB L501.1300 10-20 RATIO Low BUN/CRE 5.7 LAB L501.1500 6.4-8. g/dL Normal 2 T PROT 6.7 LAB L501.1800 3.2-5. g/dL Normal 0 ALB 3.5 LAB L501.1950 2.2-4. g/dL Normal 2 GLOB 3.2 LAB L501.2000 0.9-2. RATIO Normal 4 A/G 1.1 LAB L501.2200 8.5-10 mg/dL Normal .1 CA 8.5 LAB L501.4100 15-37 U/L Normal AST 17 LAB L501.4305 45-117 U/L Normal ALK P 99 LAB L501.4405 13-56 U/L Normal ALT 18 LAB L501.4600 0.20-1 mg/dL Normal .00 T BILI 0.30 LAB L501.5300 136-14 mmol/L Normal 5 NA 141 LAB L501.5600 3.5-5. mmol/L Normal 1 K 3.5 LAB L501.5900 98-107 mmol/L Normal CL 105 LAB L501.6100 21.0-3 mmol/L Normal 2.0 CO2 28.0 LAB L501.6200 5-15 Normal GAP 8 Performed By: #### L100.0100, L500.4050 #### [facility] [address] [facility] [place], [address] ONCOLOGY VISIT REPORT Observed: 04/11/2018 Status: F Source: SECOR 12:17 PM [facility] REPOSITORY [facility] [facility] [place] [address] OFFICE VISIT Date of Service: 04/11/18 1211 MR#: [id number] Acct: [id number] Name: LINDSAY ANTUNEZ Rep #: [id number] : 1965 From: Carolina Pak MD Age/Sex: 52/F Location: ONC Status: Signed - Problem List (1) Primary cancer of left female breast Status: Chronic (2) Regional lymph node metastasis present Status: Chronic (3) Bone metastases Status: Chronic (4) Brain metastases Status: Chronic (5) Anemia Status: Chronic (6) Fatigue Status: Acute (7) Anorexia Status: Acute - Date of Service Date of Service:: 04/11/18 - Chief Complaint Breast cancer on treatment - History of Present Illness Patient is a 52-year-old female perimenopausal who never had screening mammographies and became aware of a painless lump in the left breast and a second lump in the left axilla in August 2017. She did not seek any medical care until October 09, 2017 when she developed chest pain and dyspnea. She was seen in [facility] emergency room, diagnosed and treated for pneumonia and referred to surgical consultation when the breast mass was noted on exam. Mammography and ultrasound examination confirmed the palpable abnormalities. On October 12, 2017 she underwent biopsies from the left breast mass and the left axilla that confirmed an invasive lobular carcinoma nuclear grade 3 ER negative, DC negative, HER-2 overexpressed 3+. On October [address] scan of the chest that showed emphysematous changes and diffuse bony lytic lesions throughout the thoracic and lumbar vertebrae and lower cervical segments, lytic lesions in humeral heads bilaterally, sternum, clavicles, left scapula and several ribs bilaterally. CT scan of the abdomen and pelvis showed an indeterminate lesion too small to characterize in the liver but no other visceral disease, widespread bony metastatic disease was again noted. A bone scan October 2017 initial staging showed diffuse skeletal metastatic disease. A bone biopsy October 27, 2017 confirmed metastatic cancer of breast origin. Brain MRI showed small multiple metastatic lesions one in the posterior right internal capsule, multiple bilateral small cerebellar metastases. CA 27-29 not elevated at diagnosis and therefore will not aid in follow-up. Her family history is notable for 2 maternal aunts with breast cancers but no first-degree relatives was breast cancer Treatment: Focal radiation therapy to the sites of disease in the STATE PILOT at [facility] 10/2017 Whole brain radiation therapy 3000 cGy of 6 MV photons in 10 fractions 02/28/18- 03/13/18. Systemic therapy was held during whole brain radiation. Mcywfdriha-Nfoixbvbyor-Dvmlhiwf 11/29/2017- - Past Medical/Social History Past Medical History Past Medical History: Pneumonia Cancer: Breast cancer Other Cancer History: Radiation to brain Social History Social History: No changes Smoking Status Former smoker Review of Systems Constitutional:: Reports: Weakness, Fatigue - Able to do ADL, minimal assistance from . Denies: Fever, Sweats, Weight loss, Appetite change, Chills Cardiovascular:: Reports: Dyspnea on exertion. Denies: Chest pain, Palpitations, Orthopnea, PND, Shortness of breath Respiratory: Reports: Shortness of breath upon exertion. Denies: Cough, Hemoptysis, Shortness of Breath, Wheezing Gastrointestinal:: Reports: Nausea - Occasional responsive to treatment, Constipation. Denies: Abdominal pain, Vomiting, Diarrhea, Hematochezia Genitourinary: Denies: Dysuria, Hematuria, 15, Flank pain Musculoskeletal:: Reports: Back pain - Occasional mid lower back responsive to analgesia no radiation. Denies: Myalgia, Arthralgia Skin: Denies: Rash, Skin Changes, Wounds Neurological:: Denies: Headache, Dizziness, Visual changes, Tinnitus, Hearing loss Psychiatric: Denies: Anxiety, Depression, Homicidal Ideations, Suicidal Ideations Vital Signs Height 5 ft 2 in Weight: 60.146 kg - Physical Exam General: Alert, Oriented x3, No apparent distress, - - Cushingoid ECOG 1-2, mildly pale HEENT: Atraumatic, PERRLA, EOMI, Normocephalic, - - No oral thrush Oropharynx:: Dry mucosa Neck:: Supple, Trachea midline, - - Port okay. Negative for: JVD, bilateral Cardiac:: Regular rate, Regular rhythm, Normal S1, Normal S2. Negative for: Murmur Lungs: Clear to auscultation, Excusion symmetrical. Negative for: Rhonchi, Wheezes Abdomen:: Soft, Non-tender, Non-distended. Negative for: Hepatosplenomegaly Extremities:: Negative for: Cyanosis, Edema Neurological: Neuro grossly intact Skin:: Negative for: Lesions, Rash, Petechiae, Ecchymosis Psychiatric:: Appropriate affect, Euthymic Lymphatics:: Negative for: Cervical lymphadenopathy, Supraclavicular lymphadenopathy Laboratory Data: Laboratory Tests WBC 7.1 (4.4-11.0) K/mm3 RBC 4.00 L (4.2-5.4) M/mm3 Hgb 12.4 (12.0-15.0) g/dl Hct 40.2 (37-47) % Assessment and Plan Assessment: 52-year-old female, perimenopausal with stage IV invasive lobular carcinoma of the left breast (T2, N3, M1) with metastases to left axillary, left supraclavicular and left cervical lymph nodes in addition to widespread metastatic disease to bone , an indeterminate lesion in the liver too small to characterize, and multiple bilateral low- volume brain metastases without visible edema. Disease is ER negative, DC negative, HER-2 overexpressed. Comorbid conditions COPD, active smoker, poor dentition. Plan; #1 Concluded focal brain radiation for metastatic disease in the STATE PILOT at [facility] 10/2017 then whole brain radiation due to STATE PILOT recurrence in February 2018. #2 She has extensive widespread bony metastatic disease, that in the spine does not impinge on the spinal cord at presentation #3 Pain management consulted to optimize pain control. #4 Systemic therapy, first line treatment this combination of Pertuzumab, trastuzumab and Taxotere given every 3 weeks supported with antiemetics, steroids and primary prophylaxis with Neulasta (patient has extensive metastatic disease involving bones and bone marrow with comorbid COPD making her a higher risk than average for febrile neutropenic sepsis. Plan is for 6-12 cycles of combination therapy depending on response followed by maintenance on Herceptin plus or minus pertuzumab depending on response and tolerance of treatment. She will receive cycle 6 this week with imaging CT chest abdomen pelvis and bone scan to reassess disease status prior to next cycle of treatment #5 Bisphosphonate therapy for metastatic bone disease every 3 months in addition to calcium and vitamin D supplement #6 Anemia partly due to metastatic disease to bone marrow and suppression by systemic chemotherapy. No evidence for iron or B12 deficiency found. #7 Echo (/3M of Rx) last was February 20, 2018 showed preserved EF. Next is due end of April 2018. #8 CA-27-29 not elevated at diagnosis and therefore not helpful and follow-up of disease course. #9 Upper GI dyspeptic symptoms and nausea appears to be related to analgesics use, resolved . Patient was seen, impression and plan discussed. Medications: Prescriptions This Visit Medication Instructions Recorded Dexamethasone 4 mg PO BID #30 tab 10/19/17 Primary Care Provider: No Primary Care Phys Referring Provider: Carolina Pak MD 04/11/18 1217 <Electronically signed by Carolina Pak MD> Date Carolina Pak MD Cosigner Signature: Date (if applicable) CC: CBC W/DIFF, AUTOMATED Collected: 04/11/2018 Status: F Source: [place] 9:00 AM [facility] REPOSITORY TYPE CODE TESTS RESULT OUT OF RANGE REFERENCE UNITS LAB L100.1000 4.4-11.0 K/mm3 Normal WBC 7.1 LAB L100.1200 4.2-5.4 M/mm3 Low RBC 4.00 LAB L100.1300 12.0-15.0 g/dl Normal HGB 12.4 LAB L100.1400 37-47 % Normal HCT 40.2 LAB L100.1500 81-99 fL High MCV 100.5 LAB L100.1600 27.0-32.0 pg Normal MCH 31.0 LAB L100.1700 32-36 g/gl Low MCHC 30.8 LAB L100.1810 11.6-14.6 % Normal RDW CV 14.3 LAB L100.1820 35.1-43.9 fl High RDW SD 52.8 LAB L100.1900 150-450 K/mm3 Normal PLT 227 LAB L100.2000 6.2-12.0 fl Normal MPV 9.4 LAB L100.2100 47-70 % High NEUT% 70.3 LAB L100.2200 19-41 % Low LY% 12.8 LAB L100.2300 0-10 % High MONO% 15.3 LAB L100.2400 0-5 % Normal EO% 0.6 LAB L100.2500 0-1 % Normal BASO% 0.6 LAB L100.2550 0.0-0.9 % Normal IM GRAN % 0.400 Result Comment: IG% - Immature Granulocytes (promyelocytes, myelocytes and metamyelocytes) > 1% indicates that a LEFT SHIFT is Present. LAB L100.2620 2.0-7.7 X10 3/uL Normal Absolute Neut 5.0 LAB L100.2720 0.83-4.51 X10 3/ul Normal Absolute Lymph 0.91 Performed By: #### L100.0100, L500.4050 #### [facility] [address] [place], [place] [address]all [address]. [place], [place], [id number] COMPREHENSIVE METABOLIC Collected: 04/11/2018 Status: F Source: [facility] 9:00 AM [facility] REPOSITORY Order Comment: Reason for Laboratory Test Chemotherapy TYPE CODE TESTS RESULT OUT OF RANGE REFERENCE UNITS LAB L501.0100 74-106 mg/dL Normal GLU 82 Result Comment: Please note revised GLUCOSE reference range effective 2017. LAB L501.1000 7-18 mg/dL Low BUN 6 LAB L501.1100 0.55-1.02 mg/dL Normal CREAT,SERUM 0.71 Result Comment: The validity of the calculated GFR AND GFRAA in patients over 70 years has not been determined. Clinical correlation is essential. LAB L501.1110 >60 mL/min Normal EST GFR 92 Result Comment: Non- GFR Calc LAB L501.1115 >60 mL/min Normal EST GFR - AA 112 Result Comment: GFR Calc LAB L501.1255 ml/min Normal Estimated CRCL 74.97 LAB L501.1300 10-20 RATIO Low BUN/CRE 8.4 LAB L501.1500 6.4-8. g/dL Low 2 T PROT 6.3 LAB L501.1800 3.2-5. g/dL Normal 0 ALB 3.5 LAB L501.1950 2.2-4. g/dL Normal 2 GLOB 2.8 LAB L501.2000 0.9-2. RATIO Normal 4 A/G 1.2 LAB L501.2200 8.5-10 mg/dL Normal .1 CA 9.0 LAB L501.4100 15-37 U/L Low AST 12 LAB L501.4305 45-117 U/L Normal ALK P 48 LAB L501.4405 13-56 U/L Normal ALT 18 LAB L501.4600 0.20-1 mg/dL Normal .00 T BILI 0.30 LAB L501.5300 136-14 mmol/L Normal 5 NA 143 LAB L501.5600 3.5-5. mmol/L Normal 1 K 4.1 LAB L501.5900 98-107 mmol/L Normal CL 107 LAB L501.6100 21.0-3 mmol/L Normal 2.0 CO2 28.0 LAB L501.6200 5-15 Normal GAP 8 Performed By: #### L100.0100, L500.4050 #### [facility] [address] [facility] 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 From 11/14/17 - 11/16/17 she received FSRT consisting of 2400 cGy delivered in 3 fractions to the 10 STATE PILOT lesions noted on the MRI. Repeat MRI brain 01/29/18 showed evidence for multifocal disease progression within the STATE PILOT. Plan was made to complete whole brain radiation therapy as further focal therapy was not felt to be an option given the numerous sites of disease in the brain. From 02/28/18 03/13/18 she received 3000 cGy in 10 fractions to the whole brain. History of Present Illness: 10/09/2017: Patient was seen in the emergency room due to left shoulder pain radiating to the right shoulder with right-sided chest pain as well as left nipple retraction with left breast discharge. 10/10/2017: Bilateral diagnostic mammogram was performed and demonstrated a 2.1 x 2.4 cm spiculated mass in the retroareolar region of the left breast which corresponds to the palpable abnormality, there are diffuse microcalcifications seen within it, there is also evidence of left axillary lymphadenopathy, no other significant abnormalities were identified. BI-RADS 5. 10/12/2017: CT chest was completed and showed evidence for diffuse lytic lesions seen throughout the thoracic and lumbar vertebrae, lucent lesions are also identified in the lower cervical segment as well as the humeral heads bilaterally. There is evidence of lytic lesions noted in the sternum as well as along the medial aspect of the clavicles as well as the left scapula. Also suspected or lytic lesions that are very small and several bilateral ribs. A left breast mass is identified as well as several enlarged left axillary lymph nodes. There is also a few scattered subcutaneous tissue nodules noted. 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 10/20/2017: Patient completed brain MRI with contrast which demonstrated evidence for 5 lesions consistent with metastatic disease for lesion is located within the cerebellum and the fifth lesion located in the posterior internal capsule on the right side. There is minimal associated edema. There is also heterogeneous low signal within the calvarium present which may represent an infiltrative bone marrow process though no focal calvarial lesions are noted, upper cervical spine shows multiple areas of osseous enhancement consistent with metastatic disease. 10/20/2017: MRI of the cervical thoracic and lumbar spine was completed which demonstrated evidence for diffuse osseous metastatic disease with a lytic appearance, no pathologic compression fractures or spinal cord compression is identified, no paraspinal masses are identified, there are no intra-canalicular lesions seen. 10/25/2017: CT abdomen and pelvis with contrast was performed which demonstrated evidence for diffuse osseous disease within the thoracic and lumbar spine as well as the sacrum and pelvis and both proximal femora. There is a single 7 mm hypodense lesion in the right liver, but no evidence for other sites of metastatic disease. 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 From 11/14/17 - 11/16/17: Patient received FSRT consisting of 2400 cGy delivered in 3 fractions to the 10 STATE PILOT lesions noted on the MRI. 11/29/17: Initiated Pertuzumab/Trastuzumab/Taxotere 01/29/2018: MRI brain was completed which demonstrated evidence for increasing number of metastatic lesions when compared to the prior study. 01/29/2018: Chest x-ray of the lumbar and thoracic spine was completed. There is diffuse osseous metastatic disease and chronic appearing compression fractures of T11, T12, and L1. 02/09/2018: Patient was evaluated by [facility] in follow- up after completing brain FSRT. Upon review, the previously treated lesions were stable to improved but there were multiple new punctate lesions noted especially in the cerebellum. Recommendation was to complete whole brain radiation therapy. From 02/28/18 03/13/18: Received 3000 cGy in 10 fractions to the whole brain with concurrent memantine. Radiation Treatment History: 1) From 11/14/17 - 11/16/17: Patient received FSRT consisting of 2400 cGy delivered in 3 fractions to the 10 STATE PILOT lesions noted on the MRI. 2) From 02/28/18 03/13/18: Received 3000 cGy in 10 fractions to the whole brain with concurrent memantine. Denies history of collagen vascular disease and denies having a pacemaker. Interval History: Patient presents for follow-up approximately 1 month after completing whole brain radiation therapy with concurrent memantine. A few weeks ago she was seen for increase in nausea and fatigue and she was treated with another Decadron taper and memantine was reduced to half dose. She reports doing much better at this time in is completely off Decadron, she is taking memantine 5 mg twice daily. Energy has improved and she only occasionally has very mild nausea. Appetite has been fair and weight has been stable. She has complete alopecia and denies scalp irritation. She denies having any headaches, focal weakness/numbness, ataxia, cognitive or memory dysfunction, vision changes, hearing changes. She does have persistent diffuse discomfort in her axial spine which she measures at about a 4 out of 10 up to about an 8 out of 10. She is taking hydrocodone/acetaminophen for this approximately 4 times per day. Pain is worse with standing/walking and is relieved with rest either sitting or laying. She denies having any bowel/bladder incontinence. She believes this discomfort has may be mildly worsened over the last couple of months but has been ongoing for a while. Overall she believes she is tolerating systemic therapy well and will have cycle 6 tomorrow. She denies having any chest pain, shortness of breath, or cough. She reports staying fairly active and can complete all activities of daily living without much difficulty. She denies having any other concerns at this time. I have reviewed the medical, surgical, and other pertinent history in details and have updated medication and allergy information in the electronic medical record. Review of Systems: A 12-point review of systems was completed and was negative except for what is noted in the HPI/Interval History and by the nurse. Height/Weight/BMI: Height: 5 ft 2 in Weight: 133 lbs BMI: 22.3 Vital Signs Temperature 98 F 04/10/18 09:08 Temperature Source Oral 04/10/18 09:08 Pulse Rate 81 04/10/18 09:08 Respiratory Rate 16 04/10/18 09:08 Respiratory Pattern Normal 01/18/18 15:22 Physical Exam: ECO KARNOFSKY SCORE: 80% CONSTITUTIONAL: Well-developed, well-nourished, and in no apparent distress. HEENT: Mucous membranes mildly dry. No evidence of thrush or lesions within the visualized oropharynx or oral cavity. Complete alopecia, no scalp erythema. No trismus. Pupils are equal, round, and reactive to light and accommodation. Extraocular movements are intact. Sclerae are anicteric. NECK: Supple,with no thyromegaly, and non-tender. Trachea midline. No cervical or supraclavicular adenopathy noted. CARDIAC: Regular rate and rhythm. Normal S1, S2. No murmurs, rubs, or gallops. PULMONARY/CHEST: Lungs are clear to auscultation and percussion bilaterally. No wheezes, rhonchi, or crackles noted. No increased work of breathing. ABDOMINAL: Abdomen soft, non-tender, non-distended. No hepatomegaly. Normoactive bowel sounds in all four quadrants. No guarding, rebound. BACK: Straight and aligned. No CVA tenderness. Tenderness to palpation is noted in the axial skeleton involving the lumbar/sacral region as well as the lower thoracic region, otherwise nontender to palpation. EXTREMITIES: Full range of motion in all four extremities, with normal strength equally and symmetrically. No evidence of edema. No clubbing. NEUROLOGICAL EXAM: Alert and oriented x 3. Cranial nerves II through XII are grossly intact. No focal neurological deficit. Speech is fluent. There is no upper or lower extremity sensory deficit or motor deficit. Muscle strength is 5/5 in all muscle groups. Gait and posture are steady. 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 From 11/14/17 - 11/16/17 she received FSRT consisting of 2400 cGy delivered in 3 fractions to the 10 STATE PILOT lesions noted on the MRI. Repeat MRI brain 01/29/18 showed evidence for multifocal disease progression within the STATE PILOT. Plan was made to complete whole brain radiation therapy as further focal therapy was not felt to be an option given the numerous sites of disease in the brain. From 02/28/18 03/13/18 she received 3000 cGy in 10 fractions to the whole brain. Plan: Patient returns for a one-month follow-up after completing whole brain radiation therapy. She is completely off Decadron and take memantine at 5 mg twice daily. Clinically she is doing much better and has improved energy and previously noted nausea. MRI brain will be completed at 2 months to ensure stability or improvement of brain metastases. Clinically she also has persistent discomfort in her axial spine which is currently well managed with oral pain medications. She will receive cycle 6 of systemic therapy tomorrow and will have repeat CT scans and bone scan in the next 3 weeks. If the scans display worsening of bone metastases then we will consider MRI imaging and possibly palliative radiation therapy to sites of discomfort or impending fracture/neurologic compromise. She is currently on bisphosphonate therapy to help prevent skeletal events. Following discussion with medical oncology we would like to hold off on palliative radiation therapy at this time given the diffuse metastatic disease in need to preserve bone marrow functioning. She was instructed to call with any further worsening of pain or development of other symptoms such as numbness/weakness or incontinence. I will have her return to clinic following brain MRI in 1 month and review options of palliative radiation therapy depending on the extracranial imaging done in the next 3 weeks. I was able to answer all the patient's questions and concerns and she was in agreement with our plan. Kev Schroeder DO, MS Demurrage Agent, Department of Radiation Oncology [facility] 04/10/18 1148 <Electronically signed by Kev Schroeder DO> Date Kev Schroeder DO CC: Lauro Anderson MD; Carolina Pak MD Signed ONCOLOGY VISIT REPORT Observed: 03/27/2018 Status: F Source: [facility] 1:35 PM [facility] RE[facility] [place] [address] [address] [place] [address] OFFICE VISIT Date of Service: 03/27/18 1051 MR#: [id number] Acct: [id number] Name: LINDSAY ANTUNEZ Rep #: [id number] : 1965 From: Carolina Pak MD Age/Sex: 52/F Location: OMD Status: Signed - Problem List (1) Primary cancer of left female breast Status: Chronic (2) Regional lymph node metastasis present Status: Chronic (3) Bone metastases Status: Chronic (4) Brain metastases Status: Chronic (5) Anemia Status: Chronic (6) Fatigue Status: Acute (7) Anorexia Status: Acute - Date of Service Date of Service:: 03/27/18 - Chief Complaint Fatigue, anorexia - History of Present Illness Patient is a 52-year-old female perimenopausal who never had screening mammographies and became aware of a painless lump in the left breast and a second lump in the left axilla in August 2017. She did not seek any medical care until October 09, 2017 when she developed chest pain and dyspnea. She was seen in [facility] emergency room, diagnosed and treated for pneumonia and referred to surgical consultation when the breast mass was noted on exam. Mammography and ultrasound examination confirmed the palpable abnormalities. On October 12, 2017 she underwent biopsies from the left breast mass and the left axilla that confirmed an invasive lobular carcinoma nuclear grade 3 ER negative, DC negative, HER-2 overexpressed 3+. On October [address] scan of the chest that showed emphysematous changes and diffuse bony lytic lesions throughout the thoracic and lumbar vertebrae and lower cervical segments, lytic lesions in humeral heads bilaterally, sternum, clavicles, left scapula and several ribs bilaterally. CT scan of the abdomen and pelvis showed an indeterminate lesion too small to characterize in the liver but no other visceral disease, widespread bony metastatic disease was again noted. A bone scan October 2017 initial staging showed diffuse skeletal metastatic disease. A bone biopsy October 27, 2017 confirmed metastatic cancer of breast origin. Brain MRI showed small multiple metastatic lesions one in the posterior right internal capsule, multiple bilateral small cerebellar metastases. CA 27-29 not elevated at diagnosis and therefore will not aid in follow-up. Her family history is notable for 2 maternal aunts with breast cancers but no first-degree relatives was breast cancer Treatment: Focal radiation therapy to the sites of disease in the [facility] PILOT at [facility] main 10/2017 Whole brain radiation therapy 3000 cGy of 6 MV photons in 10 fractions 02/28/18- 03/13/18. Systemic therapy was held during whole brain radiation. Qaijvuonjd-Oinjtluqfkj-Xtlzmqwo 11/29/2017- - Interval History Seen semi-urgently with a sick call. Over the past few days have felt increasingly tired and anorexic. Had 1 or 2 episodes of nausea or vomiting over the past 24 hours but did not appreciate any change in bowel movements. No fevers and no other family members sick with any viral Completed oral steroid wean end of last week. - Past Medical/Social History Past Medical History Past Medical History: Pneumonia Cancer: Breast cancer Other Cancer History: Radiation to brain Social History Social History: No changes Smoking Status Former smoker Review of Systems Constitutional:: Reports: Weakness, Fatigue, Appetite change. Denies: Fever, Sweats, Weight loss, Chills Cardiovascular:: Reports: Dyspnea on exertion. Denies: Chest pain, Palpitations, Orthopnea, PND, Shortness of breath Respiratory: Reports: Shortness of breath upon exertion. Denies: Cough, Hemoptysis, Shortness of Breath, Wheezing Gastrointestinal:: Reports: Nausea - See under interval course, Vomiting, Diarrhea - No change she has a baseline of 2-3 soft bowel movements daily. Denies: Abdominal pain, Constipation, Hematochezia Genitourinary: Denies: Dysuria, Hematuria, 15, Flank pain Musculoskeletal:: Reports: Back pain - And rib pains well controlled with analgesia. Denies: Myalgia, Arthralgia Skin: Denies: Rash, Skin Changes, Wounds Neurological:: Reports: Dizziness. Denies: Headache, Visual changes, Tinnitus, Hearing loss Psychiatric: Denies: Anxiety, Depression, Homicidal Ideations, Suicidal Ideations Vital Signs Height 5 ft 2 in Weight: 61.235 kg - Physical Exam General: Alert, Oriented x3, No apparent distress, - - Chronically ill looking, ECOG 2-3, cushingoid HEENT: Atraumatic, PERRLA, EOMI, Normocephalic, - - Mild pallor Oropharynx:: Dry mucosa, - - No oral thrush Neck:: Supple, Trachea midline, - - Port okay. Negative for: JVD, bilateral Cardiac:: Regular rate, Regular rhythm, Normal S1, Normal S2. Negative for: Murmur Lungs: Clear to auscultation, Diminished, Excusion symmetrical. Negative for: Rhonchi, Wheezes Abdomen:: Soft, Non-tender, Non-distended. Negative for: Hepatosplenomegaly Extremities:: Negative for: Cyanosis, Edema Neurological: Neuro grossly intact Skin:: Lesions - Chronic multiple skin fibromas. Negative for: Rash, Petechiae, Ecchymosis Psychiatric:: Appropriate affect, Euthymic Lymphatics:: Negative for: Cervical lymphadenopathy, Supraclavicular lymphadenopathy, Axillary lymphadenopathy Laboratory Data: Laboratory Tests WBC 14.7 H Hgb 11.7 L Plt Count 241 Sodium 145 Potassium 3.8 Chloride 112 H BUN 3 L Creatinine 0.66 Assessment and Plan Assessment: 52-year-old female, perimenopausal with stage IV invasive lobular carcinoma of the left breast (T2, N3, M1) with metastases to left axillary, left supraclavicular and left cervical lymph nodes in addition to widespread metastatic disease to bone , an indeterminate lesion in the liver too small to characterize, and multiple bilateral low- volume brain metastases without visible edema. Disease is ER negative, DC negative, HER-2 overexpressed. Comorbid conditions COPD, active smoker, poor dentition. Plan; #1 Concluded focal brain radiation for metastatic disease in the STATE PILOT at [facility] 10/2017 then whole brain radiation due to STATE PILOT recurrence in February 2018. #2 She has extensive widespread bony metastatic disease, that in the spine does not impinge on the spinal cord at presentation #3 Pain management consulted to optimize pain control. #4 Systemic therapy, first line treatment this combination of Pertuzumab, trastuzumab and Taxotere given every 3 weeks supported with antiemetics, steroids and primary prophylaxis with Neulasta (patient has extensive metastatic disease involving bones and bone marrow with comorbid COPD making her a higher risk than average for febrile neutropenic sepsis. Plan is for 6-12 cycles of combination therapy depending on response followed by maintenance on Herceptin plus or minus pertuzumab depending on response and tolerance of treatment. Skin rash resolved with topical treatment. #5 Bisphosphonate therapy for metastatic bone disease every 3 months in addition to calcium and vitamin D supplement #6 Anemia improved after blood transfusion partly due to metastatic disease to bone marrow and suppression by systemic chemotherapy. No evidence for iron or B12 deficiency found. #7 Echo (/3M of Rx) last was February 20, 2018 showed preserved EF. Next is due end of April 2018. #8 CA-27-29 not elevated at diagnosis and therefore not helpful and follow-up of disease course. #9 Upper GI dyspeptic symptoms and nausea appears to be related to analgesics use, resolved . #10 Next imaging end of March 2018, after 6 cycles of systemic therapy. Seen March 27 in an urgent visit with increasing fatigue and anorexia as main complaints. Clinical exam and labs are unremarkable. Suspect recent weaning off high-dose steroids (for brain metastases), side effect of Memantine in addition to cancer therapy and recent brain radiation. Advised to resume Decadron with a slow wean over the next week and holding Memantine for 1 week and reassess. Patient was seen with her , impression and plan discussed. Medications: Prescriptions This Visit Medication Instructions Recorded Medications Added to Medication List This Visit Primary Care Provider: Shana Primary Care Phys Referring Provider: Carolina Pak MD 03/27/18 1335 <Electronically signed by Carolina Pak MD> Date Carolina Pak MD Cosigner Signature: Date (if applicable) CC: CBC W/DIFF, AUTOMATED Collected: 03/27/2018 Status: F Source: [place] 11:18 AM [facility] REPOS[facility] Order Comment: Reason for Laboratory Test ALSO DRAW BLOODBANK TUBE FOR TYPE AND SAVE TYPE CODE TESTS RESULT OUT OF RANGE REFERENCE UNITS LAB L100.1000 4.4-11.0 K/mm3 High WBC 14.7 LAB L100.1200 4.2-5.4 M/mm3 Low RBC 3.76 LAB L100.1300 12.0-15.0 g/dl Low HGB 11.7 LAB L100.1400 37-47 % Normal HCT 38.4 LAB L100.1500 81-99 fL High MCV 102.1 LAB L100.1600 27.0-32.0 pg Normal MCH 31.1 LAB L100.1700 32-36 g/gl Low MCHC 30.5 LAB L100.1810 11.6-14.6 % Normal RDW CV 14.5 LAB L100.1820 35.1-43.9 fl High RDW SD 53.9 LAB L100.1900 150-450 K/mm3 Normal PLT 241 LAB L100.2000 6.2-12.0 fl Normal MPV 9.8 LAB L100.2100 47-70 % High NEUT% 92.6 LAB L100.2200 19-41 % Low LY% 4.0 LAB L100.2300 0-10 % Normal MONO% 2.4 LAB L100.2400 0-5 % Normal EO% 0.1 LAB L100.2500 0-1 % Normal BASO% 0.2 LAB L100.2550 0.0-0.9 % Normal IM GRAN % 0.700 Result Comment: IG% - Immature Granulocytes (promyelocytes, myelocytes and metamyelocytes) > 1% indicates that a LEFT SHIFT is Present. LAB L100.2620 2.0-7.7 X10 3/uL High Absolute Neut 13.6 LAB L100.2720 0.83-4.51 X10 3/ul Low Absolute Lymph 0.58 LAB L100.4500 Normal SMEAR COMMENT COMMENT Result Comment: SLIDE SCANNED - LYMPHOPENIA NOTED. Performed By: #### L100.0100, L500.4050 #### [facility] [address] [place], [place], [address] COMPREHENSIVE METABOLIC Collected: 03/27/2018 Status: F Source: [facility] 11:18 AM [facility] Order Comment: Reason for Laboratory Test . TYPE CODE TESTS RESULT OUT OF RANGE REFERENCE UNITS LAB L501.0100 74-106 mg/dL Normal GLU 106 Result Comment: Fasting Glucose result from 100 to 125 mg/dL suggests IMPAIRED HOMEOSTASIS per A.D.A. criteria. Please note revised GLUCOSE reference range effective 2017. LAB L501.1000 7-18 mg/dL Low BUN 3 LAB L501.1100 0.55-1.02 mg/dL Normal CREAT,SERUM 0.66 Result Comment: The validity of the calculated GFR AND GFRAA in patients over 70 years has not been determined. Clinical correlation is essential. LAB L501.1110 >60 mL/min Normal EST GFR 101 Result Comment: Non- GFR Calc LAB L501.1115 >60 mL/min Normal EST GFR - AA 123 Result Comment: GFR Calc LAB L501.1255 ml/min Normal Estimated CRCL 80.65 LAB L501.1300 10-20 RATIO Low BUN/CRE 4.6 LAB L501.1500 6.4-8. g/dL Normal 2 T PROT 6.4 LAB L501.1800 3.2-5. g/dL Normal 0 ALB 3.3 LAB L501.1950 2.2-4. g/dL Normal 2 GLOB 3.1 LAB L501.2000 0.9-2. RATIO Normal 4 A/G 1.1 LAB L501.2200 8.5-10 mg/dL Normal .1 CA 8.6 LAB L501.4100 15-37 U/L Low AST 12 LAB L501.4305 45-117 U/L Normal ALK P 96 LAB L501.4405 13-56 U/L Normal ALT 17 LAB L501.4600 0.20-1 mg/dL Normal .00 T BILI 0.20 LAB L501.5300 136-14 mmol/L Normal 5 NA 145 LAB L501.5600 3.5-5. mmol/L Normal 1 K 3.8 LAB L501.5900 98-107 mmol/L High CL 112 LAB L501.6100 21.0-3 mmol/L Normal 2.0 CO2 26.0 LAB L501.6200 5-15 Normal GAP 7 Performed By: #### L100.0100, L500.4050 #### [facility] [address] [facility] [place], [address] ONCOLOGY VISIT REPORT Observed: 03/14/2018 Status: F Source: [facility] 9:56 AM [facility] RE[facility] [facility] [place] [address] OFFICE VISIT Date of Service: 03/14/18 0931 MR#: [id number] Acct: [id number] Name: ANTUNEZLINDSAY M Rep #: [id number] : 1965 From: Carolina Pak MD Age/Sex: 52/F Location: OMD Status: Signed - Problem List (1) Primary cancer of left female breast Status: Chronic (2) Regional lymph node metastasis present Status: Chronic (3) Bone metastases Status: Chronic (4) Brain metastases Status: Chronic (5) Anemia Status: Chronic - Date of Service Date of Service:: 03/14/18 - Chief Complaint Breast cancer on treatment - History of Present Illness Patient is a 52-year-old female perimenopausal who never had screening mammographies and became aware of a painless lump in the left breast and a second lump in the left axilla in August 2017. She did not seek any medical care until October 09, 2017 when she developed chest pain and dyspnea. She was seen in [facility] emergency room, diagnosed and treated for pneumonia and referred to surgical consultation when the breast mass was noted on exam. Mammography and ultrasound examination confirmed the palpable abnormalities. On October 12, 2017 she underwent biopsies from the left breast mass and the left axilla that confirmed an invasive lobular carcinoma nuclear grade 3 ER negative, DC negative, HER-2 overexpressed 3+. On October [address] scan of the chest that showed emphysematous changes and diffuse bony lytic lesions throughout the thoracic and lumbar vertebrae and lower cervical segments, lytic lesions in humeral heads bilaterally, sternum, clavicles, left scapula and several ribs bilaterally. CT scan of the abdomen and pelvis showed an indeterminate lesion too small to characterize in the liver but no other visceral disease, widespread bony metastatic disease was again noted. A bone scan October 2017 initial staging showed diffuse skeletal metastatic disease. A bone biopsy October 27, 2017 confirmed metastatic cancer of breast origin. Brain MRI showed small multiple metastatic lesions one in the posterior right internal capsule, multiple bilateral small cerebellar metastases. CA 27-29 not elevated at diagnosis and therefore will not aid in follow-up. Her family history is notable for 2 maternal aunts with breast cancers but no first-degree relatives was breast cancer Treatment: Focal radiation therapy to the sites of disease in the STATE PILOT at [facility] 10/2017 Whole brain radiation therapy 3000 cGy of 6 MV photons in 10 fractions 02/28/18- 03/13/18. Systemic therapy was held during whole brain radiation. Mhusuhxlka-Rgqeplujmob-Lhzvhstw 11/29/2017- - Past Medical/Social History Past Medical History Past Medical History: Pneumonia Cancer: Breast cancer Other Cancer History: Radiation to brain Social History Social History: No changes Smoking Status Former smoker Review of Systems Constitutional:: Reports: Weakness, Fatigue. Denies: Fever, Sweats, Weight loss, Appetite change, Chills Cardiovascular:: Denies: Chest pain, Palpitations, Dyspnea on exertion, Orthopnea, PND, Shortness of breath Respiratory: Denies: Cough, Hemoptysis, Shortness of Breath, Wheezing Gastrointestinal:: Denies: Abdominal pain, Nausea, Vomiting, Diarrhea, Constipation, Hematochezia Genitourinary: Denies: Dysuria, Hematuria, 15, Flank pain Musculoskeletal:: Denies: Back pain, Myalgia, Arthralgia Skin: Denies: Rash, Skin Changes, Wounds Neurological:: Denies: Headache, Dizziness, Visual changes, Tinnitus, Hearing loss Psychiatric: Denies: Anxiety, Depression, Homicidal Ideations, Suicidal Ideations Vital Signs Height 5 ft 2 in Weight: 61.689 kg - Physical Exam General: Alert, Oriented x3, No apparent distress, - - ECOG 1 Cushingoid HEENT: Atraumatic, PERRLA, EOMI, Normocephalic Oropharynx:: Dry mucosa Neck:: Supple, Trachea midline, - - Port okay. Negative for: JVD, bilateral Cardiac:: Regular rate, Regular rhythm, Normal S1, Normal S2. Negative for: Murmur Lungs: Clear to auscultation, Excusion symmetrical. Negative for: Rhonchi, Wheezes Abdomen:: Soft, Non-tender, Non-distended. Negative for: Hepatosplenomegaly Extremities:: Negative for: Cyanosis, Edema Neurological: Neuro grossly intact Skin:: Negative for: Lesions, Rash, Petechiae, Ecchymosis Psychiatric:: Appropriate affect, Euthymic Lymphatics:: Axillary lymphadenopathy. Negative for: Cervical lymphadenopathy, Supraclavicular lymphadenopathy Laboratory Data: Laboratory Tests WBC 6.5 (4.4-11.0) K/mm3 RBC 3.53 L (4.2-5.4) M/mm3 Hgb 11.0 L (12.0-15.0) g/dl Assessment and Plan 52-year-old female, perimenopausal with stage IV invasive lobular carcinoma of the left breast (T2, N3, M1) with metastases to left axillary, left supraclavicular and left cervical lymph nodes in addition to widespread metastatic disease to bone , an indeterminate lesion in the liver too small to characterize, and multiple bilateral low- volume brain metastases without visible edema. Disease is ER negative, DC negative, HER-2 overexpressed. Echocardiography (September 2017 prior to treatment) showed adequacy of cardiac function with an ejection fraction 65%. Comorbid conditions COPD, active smoker, poor dentition. Plan; #1 Concluded focal brain radiation for metastatic disease in the STATE PILOT at [facility] Main [facility] 10/2017 then whole brain radiation due to STATE PILOT recurrence in February 2018. #2 She has extensive widespread bony metastatic disease, that in the spine does not impinge on the spinal cord at presentation #3 Pain management consulted to optimize pain control. #4 Systemic therapy, first line treatment this combination of Pertuzumab, trastuzumab and Taxotere given every 3 weeks supported with antiemetics, steroids and primary prophylaxis with Neulasta (patient has extensive metastatic disease involving bones and bone marrow with comorbid COPD making her a higher risk than average for febrile neutropenic sepsis. Plan is for 6-12 cycles of combination therapy depending on response followed by maintenance on Herceptin plus or minus pertuzumab depending on response and tolerance of treatment. Skin rash resolved with topical treatment. #5 Bisphosphonate therapy for metastatic bone disease every 3 months in addition to calcium and vitamin D supplement #6 Anemia improved after blood transfusion partly due to metastatic disease to bone marrow and suppression by systemic chemotherapy. No evidence for iron or B12 deficiency found. #7 Echo (/3M of Rx) last was February 20, 2018 was preserved EF. Next is due end of April 2018) #8 CA-27-29 not elevated at diagnosis and therefore not helpful and follow-up of disease course. #9 Upper GI dyspeptic symptoms and nausea appears to be related to analgesics use, resolved . #10 Next imaging end of March 2018, after 6 cycles of systemic therapy. Patient was seen with her , impression and plan discussed. Medications: Prescriptions This Visit Medication Instructions Recorded Dexamethasone 4 mg PO BID #30 tab 10/19/17 Lidocaine/Prilocaine 30 gm TP DAILY PRN PRN #1 cream..g. 10/19/17 [Lidocaine-Prilocaine Cream] Primary Care Provider: No Primary Care Phys Referring Provider: Carolina Pak MD 03/14/18 0956 <Electronically signed by Carolina Pak MD> Date Carolina Pak MD Cosigner Signature: Date (if applicable) CC: CBC W/DIFF, AUTOMATED Collected: 03/14/2018 Status: F Source: [facility] 9:01 AM [facility] REPOS[facility] TYPE CODE TESTS RESULT OUT OF RANGE REFERENCE UNITS LAB L100.1000 4.4-11.0 K/mm3 Normal WBC 6.5 LAB L100.1200 4.2-5.4 M/mm3 Low RBC 3.53 LAB L100.1300 12.0-15.0 g/dl Low HGB 11.0 LAB L100.1400 37-47 % Low HCT 36.9 LAB L100.1500 81-99 fL High MCV 104.5 LAB L100.1600 27.0-32.0 pg Normal MCH 31.2 LAB L100.1700 32-36 g/gl Low MCHC 29.8 LAB L100.1810 11.6-14.6 % High RDW CV 15.2 LAB L100.1820 35.1-43.9 fl High RDW SD 58.3 LAB L100.1900 150-450 K/mm3 Normal PLT 258 LAB L100.2000 6.2-12.0 fl Normal MPV 8.8 LAB L100.2100 47-70 % Normal NEUT% 69.4 LAB L100.2200 19-41 % Low LY% 13.7 LAB L100.2300 0-10 % High MONO% 15.8 LAB L100.2400 0-5 % Normal EO% 0.6 LAB L100.2500 0-1 % Normal BASO% 0.3 LAB L100.2550 0.0-0.9 % Normal IM GRAN % 0.200 Result Comment: IG% - Immature Granulocytes (promyelocytes, myelocytes and metamyelocytes) > 1% indicates that a LEFT SHIFT is Present. LAB L100.2620 2.0-7.7 X10 3/uL Normal Absolute Neut 4.5 LAB L100.2720 0.83-4.51 X10 3/ul Normal Absolute Lymph 0.89 Performed By: #### L100.0100, L500.4050 #### [facility] [address] [place], [address] COMPREHENSIVE METABOLIC Collected: 03/14/2018 Status: F Source: [facility] [place] 9:01 AM [facility] RE[facility] Order Comment: Reason for Laboratory Test Chemotherapy TYPE CODE TESTS RESULT OUT OF RANGE REFERENCE UNITS LAB L501.0100 74-106 mg/dL Normal GLU 93 Result Comment: Please note revised GLUCOSE reference range effective 2017. LAB L501.1000 7-18 mg/dL Normal BUN 7 LAB L501.1100 0.55-1.02 mg/dL Normal CREAT,SERUM 0.67 Result Comment: The validity of the calculated GFR AND GFRAA in patients over 70 years has not been determined. Clinical correlation is essential. LAB L501.1110 >60 mL/min Normal EST GFR 99 Result Comment: Non- GFR Calc LAB L501.1115 >60 mL/min Normal EST GFR - AA 120 Result Comment: GFR Calc LAB L501.1255 ml/min Normal Estimated CRCL 79.45 LAB L501.1300 10-20 RATIO Normal BUN/CRE 10.5 LAB L501.1500 6.4-8. g/dL Low 2 T PROT 6.3 LAB L501.1800 3.2-5. g/dL Normal 0 ALB 3.4 LAB L501.1950 2.2-4. g/dL Normal 2 GLOB 2.9 LAB L501.2000 0.9-2. RATIO Normal 4 A/G 1.2 LAB L501.2200 8.5-10 mg/dL Normal .1 CA 8.5 LAB L501.4100 15-37 U/L Low AST 8 LAB L501.4305 45-117 U/L Normal ALK P 54 LAB L501.4405 13-56 U/L Normal ALT 19 LAB L501.4600 0.20-1 mg/dL Normal .00 T BILI 0.20 LAB L501.5300 136-14 mmol/L Normal 5 NA 141 LAB L501.5600 3.5-5. mmol/L Normal 1 K 3.8 LAB L501.5900 98-107 mmol/L Normal CL 107 LAB L501.6100 21.0-3 mmol/L Normal 2.0 CO2 25.0 LAB L501.6200 5-15 Normal GAP 9 Performed By: #### L100.0100, L500.4050 #### [facility] [address] [place], [address] END OF TREATMENT Observed: 03/13/2018 Status: F Source: [facility] SUMMARY 1:38 PM [facility] [facility] RE[facility] [address] [address] End of Treatment Summary Date of Service: 03/13/18 1328 MR#: [id number] Acct: [id number] Name: LINDSAY ANTUNEZ Rep #: [id number] : 1965 From: Kev Claudia DO Age/Sex: 52/F Location: [facility] Status: Signed End of Treatment Summary: Diagnosis: Lindsay Antunez is a 52-year-old female diagnosed with widely 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 From 11/14/17 - 11/16/17 she received FSRT consisting of 2400 cGy delivered in 3 fractions to the 10 STATE PILOT lesions noted on the MRI. Repeat MRI brain 01/29/18 showed evidence for multifocal disease progression within the STATE PILOT. Plan was made to complete whole brain radiation therapy as further focal therapy was not felt to be an option given the numerous sites of disease in the brain. Oncologic History: 10/09/2017: Patient was seen in the emergency room due to left shoulder pain radiating to the right shoulder with right-sided chest pain as well as left nipple retraction with left breast discharge. 10/10/2017: Bilateral diagnostic mammogram was performed and demonstrated a 2.1 x 2.4 cm spiculated mass in the retroareolar region of the left breast which corresponds to the palpable abnormality, there are diffuse microcalcifications seen within it, there is also evidence of left axillary lymphadenopathy, no other significant abnormalities were identified. BI-RADS 5. 10/12/2017: CT chest was completed and showed evidence for diffuse lytic lesions seen throughout the thoracic and lumbar vertebrae, lucent lesions are also identified in the lower cervical segment as well as the humeral heads bilaterally. There is evidence of lytic lesions noted in the sternum as well as along the medial aspect of the clavicles as well as the left scapula. Also suspected or lytic lesions that are very small and several bilateral ribs. A left breast mass is identified as well as several enlarged left axillary lymph nodes. There is also a few scattered subcutaneous tissue nodules noted. 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 10/20/2017: Patient completed brain MRI with contrast which demonstrated evidence for 5 lesions consistent with metastatic disease for lesion is located within the cerebellum and the fifth lesion located in the posterior internal capsule on the right side. There is minimal associated edema. There is also heterogeneous low signal within the calvarium present which may represent an infiltrative bone marrow process though no focal calvarial lesions are noted, upper cervical spine shows multiple areas of osseous enhancement consistent with metastatic disease. 10/20/2017: MRI of the cervical thoracic and lumbar spine was completed which demonstrated evidence for diffuse osseous metastatic disease with a lytic appearance, no pathologic compression fractures or spinal cord compression is identified, no paraspinal masses are identified, there are no intra-canalicular lesions seen. 10/25/2017: CT abdomen and pelvis with contrast was performed which demonstrated evidence for diffuse osseous disease within the thoracic and lumbar spine as well as the sacrum and pelvis and both proximal femora. There is a single 7 mm hypodense lesion in the right liver, but no evidence for other sites of metastatic disease. 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 From 11/14/17 - 11/16/17: Patient received FSRT consisting of 2400 cGy delivered in 3 fractions to the 10 STATE PILOT lesions noted on the MRI. 11/29/17: Initiated Pertuzumab/Trastuzumab/Taxotere 01/29/2018: MRI brain was completed which demonstrated evidence for increasing number of metastatic lesions when compared to the prior study. 01/29/2018: Chest x-ray of the lumbar and thoracic spine was completed. There is diffuse osseous metastatic disease and chronic appearing compression fractures of T11, T12, and L1. 02/09/2018: Patient was evaluated by [facility] rad onc in follow- up after completing brain FSRT. Upon review, the previously treated lesions were stable to improved but there were multiple new punctate lesions noted especially in the cerebellum. Recommendation was to complete whole brain radiation therapy. The patient completed a course of external beam radiotherapy in our department. This treatment was delivered for palliative intent. Treatment was given according to the following parameters: LINDSAY ANTUNEZ received 3000 cGy of 6 MV photons in 10 fractions to the whole brain with a 3D conformal technique consisting of lateral benavidez and field and field to improve dose homogeneity. The patient did not receive concurrent chemotherapy. Date of First Treatment: 02/28/18 Date of Last Treatment: 03/13/18 Total Elapsed Days (including weekend and holidays): 13 Missed Treatments: none Response and Tolerance: The patient tolerated this course of radiotherapy well overall. She experienced persistent nausea with intermittent vomiting during the course of radiation. Due to potential dehydration she did receive IV fluids on one occasion during treatment. She was treated with Decadron 4 mg/day during radiation therapy and she was also treated with Zofran for nausea. Weight remained stable during radiation. She experienced grade 1 fatigue but did not have any other notable toxicities during the course of radiation therapy. Disposition: The patient tolerated the planned course of radiation therapy well without unexpected toxicity in an appropriate time course. Nausea was stable with Zofran and she was given instructions to stop Decadron after completing radiation. She was treated with memantine concurrently and will continue memantine for a total of 6 months. I will have the patient follow-up in 4 weeks for a routine visit to assess resolution of radiation toxicity and she will call with further questions in the interim. The patient will maintain scheduled follow-up visits with the other providers. She is planning to initiate the next cycle of chemotherapy on 03/14/2018. If we can provide any further information on this patient's course of care, please do not hesitate to ask. We would like to thank you very much for allowing us to participate in the care of this patient. Sincerely, Kev Schroeder DO, MS Demurrage Agent, Department of Radiation Oncology [facility] 03/13/18 4496 <Electronically signed by Kev Schroeder DO> Date Kev Schroeder DO Laliignsully Signature: Date (if applicable) CC: No Primary Care Physician; Carolina Pak MD; Bran Granados MD RADIATION ONCOLOGY Observed: 03/07/2018 Status: F Source: SECOR VISIT 12:00 PM [facility] REPOSITORY [facility] [address] [place] [address] OFFICE VISIT Date of Service: 03/07/18 1137 MR#: [id number] Acct: [id number] Name: LINDSAY ANTUNEZ Rep #: [id number] : 1965 From: Kev Claudia DO Age/Sex: 52/F Location: [facility] Status: Signed Date of Service: 03/07/18 Diagnosis: Lindsay Antunez is a 52-year-old female diagnosed with widely 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 From 11/14/17 - 11/16/17 she received FSRT consisting of 2400 cGy delivered in 3 fractions to the 10 STATE PILOT lesions noted on the MRI. Repeat MRI brain 01/29/18 showed evidence for multifocal disease progression within the STATE PILOT. Plan was made to complete whole brain radiation therapy as further focal therapy was not felt to be an option given the numerous sites of disease in the brain. Treatment Data: Treatment Site: Whole brain Current total dose/Total dose planned: 1800 cGy / 3000 cGy Fraction number: Chemotherapy: none concurrent, Taxotere following XRT Subjective: Patient reports doing fairly well overall. She reports having persistent nausea although her vomiting is no longer present. She is taking Decadron 4 mg in the morning and Zofran about once per day for relief. She is eating smaller amounts of food a couple times throughout the day and is trying to supplement with boost, currently taking about 2/day. She denies having any difficulty with memantine. She has very minimal occasional headaches. She reports mild right eye blurriness in the morning for about a minute but otherwise denies any changes in vision. She denies changes in hearing, difficulty with concentration or memory, ataxia, difficulties with coordination, or focal weakness/numbness. She reports normal energy. She denies having scalp irritation. She does report having persistent alopecia from previous systemic therapy. Height/Weight/BMI: Height: 5 ft 2 in Weight: 62.596 kg, 132.6 lbs (02/20/18: 138 lbs) Previous/Normal Weight: BMI: 22.3 Vital Signs Temperature 98.3 F 03/07/18 10:58 Temperature Source Oral 03/07/18 10:58 Pulse Rate 91 03/06/18 11:52 Respiratory Rate 16 03/07/18 10:58 Respiratory Pattern Normal 01/18/18 15:22 Gen: NAD Skin: no scalp irritation, persistent hair thinning. Neuro: CN II-XII grossly intact, 5/5 strength, no numbness. Gait stable. Assessment: Tolerating radiation therapy fairly well overall. All imaging has been reviewed and approved Nausea with occasional vomiting Plan: Nausea of unknown origin, began before radiation. Instructed her to initiate Zofran scheduled 3 times daily and use Compazine regularly for breakthrough. Also she will continue Decadron 4 mg every morning. Consider addition of low-dose Ativan if this is not successful. Will proceed with IV fluids tomorrow after treatment Continue treatment as planned Thank you for allowing me to participate in the management and care of your patient. If I may answer any questions in the interim, please do not hesitate to contact me at any time. Kev Schroeder DO, MS Demurrage Agent, Department of Radiation Oncology [facility] 03/07/18 1200 <Electronically signed by Kev Schroeder DO> Date Kev Schroeder DO Cosigner Signature: Date (if applicable) CC: BASIC METABOLIC Collected: 03/02/2018 Status: F Source: SECOR PROFILE (BMP) 11:25 AM [facility] REPOSITORY Order Comment: PORT DRAW 67 TYPE CODE TESTS RESULT OUT OF RANGE REFERENCE UNITS LAB L501.0100 74-106 mg/dL Normal GLU 99 Result Comment: Please note revised GLUCOSE reference range effective 2017. LAB L501.1000 7-18 mg/dL Low BUN 6 LAB L501.1100 0.55-1.02 mg/dL Normal CREAT,SERUM 0.64 Result Comment: The validity of the calculated GFR AND GFRAA in patients over 70 years has not been determined. Clinical correlation is essential. LAB L501.1110 >60 mL/min EST GFR Normal 104 LAB L501.1115 >60 mL/min EST GFR Normal - AA 126 LAB L501.1255 ml/min Normal Estimated CRCL 83.17 LAB L501.1300 10-20 RATIO Low BUN/CRE 9.4 LAB L501.2200 8.5-10.1 mg/dL CA Normal 8.5 LAB L501.5300 136-145 mmol/L NA Normal 143 LAB L501.5600 3.5-5.1 mmol/L K Normal 3.7 LAB L501.5900 98-107 mmol/L CL Normal 107 LAB L501.6100 21.0-32.0 mmol/L CO2 Normal 28.0 LAB L501.6200 5-15 GAP Normal 8 Performed By: #### L500.2500 #### [facility] [address] [facility] [place], [place], [address] RADIATION ONCOLOGY Observed: 03/01/2018 Status: F Source: SECOR VISIT 12:24 PM [facility] REPOSIT[facility] [address] [facility] 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 From 11/14/17 - 11/16/17 she received FSRT consisting of 2400 cGy delivered in 3 fractions to the 10 STATE PILOT lesions noted on the MRI. Repeat MRI brain 01/29/18 showed evidence for multifocal disease progression within the STATE PILOT. Plan was made to complete whole brain radiation therapy as further focal therapy was not felt to be an option given the numerous sites of disease in the brain. Treatment Data: Treatment Site: Whole brain Current total dose/Total dose planned: 600 cGy / 3000 cGy Fraction number: Chemotherapy: none concurrent Subjective: Patient reports doing fairly well overall. She does report having increased nausea for the last 3 days with occasional vomiting. She does report some improvement with Compazine. She has been taking very little by mouth during this time because of the nausea. She denies having any dizziness or change in urinary output. She began taking memantine on Monday denies any other problems with it. She denies headache, vision changes, changes in hearing, difficulty with concentration or memory, ataxia, difficulties with coordination, or focal weakness/numbness. She reports normal energy. She denies having scalp irritation. She does report having persistent alopecia from previous systemic therapy. Height/Weight/BMI: Height: 5 ft 2 in Weight: 62.596 kg, 132.6 lbs (02/20/18: 138 lbs) Previous/Normal Weight: BMI: 22.3 BP - 133/102 P - 91 O2sat 92% RA Gen: NAD Skin: no scalp irritation, persistent hair thinning. Neuro: CN II-XII grossly intact, 5/5 strength, no numbness. Gait stable. Assessment: Tolerating radiation therapy fairly well overall. All imaging has been reviewed and approved Nausea with occasional vomiting Plan: Nausea of unknown origin, began before radiation. Possibly related to memantine. We will have her hold memantine today and reassess tomorrow. She does have Compazine and Zofran and instructions how to use these medications were reviewed today. We will also consider initiating Decadron if needed. If unable to get fluids down much today we will plan on IV fluids tomorrow following treatment. Continue treatment as planned Thank you for allowing me to participate in the management and care of your patient. If I may answer any questions in the interim, please do not hesitate to contact me at any time. Kev Schroeder DO, MS Demurrage Agent, Department of Radiation Oncology [facility] 03/01/18 8698 <Electronically signed by Kev Schroeder DO> Date Kev Schroeder DO Cosigner Signature: Date (if applicable) CC: VENOUS DUPLEX LOWER Observed: 02/20/2018 Status: F Source: SECOR EXTREMITY 5:20 PM [facility] [place] REPOSITORY [facility] [address] [place] [id number] Venous Duplex US - Edson Extrem 02/20/18 1606 MR#: [id number] Acct: [id number] Name: LINDSAY ANTUNEZ Rep #: [id number] : 1965 52 From: Bran Granados MD Attending Dr: Mar Medrano NP Status: REG CLI Ordering Dr: Mar Medrano SUPPORTABILITY ENGINEER-C Date: 02/20/18 Location: [facility] Sex: F C Admitted: Reason For Study: LEG SWELLING RIGHT LEFT GSV is normal. GSV is normal. CFV is compressible, spontaneous, phasic, CFV is compressible, spontaneous, phasic, competent and demonstrates normal competent, and demonstrates normal augmentation. augmentation. FV is compressible, spontaneous, phasic, FV is compressible, spontaneous, phasic, competent and demonstrates normal competent and demonstrates normal augmentation. augmentation. POP V is compressible, spontaneous, phasic, POP V is compressible, spontaneous, phasic, competent and demonstrates normal competent and demonstrates normal augmentation. augmentation. T/P Trunk is compressible. T/P Trunk is compressible. PTV is compressible. PTV is compressible. RT PerV is compressible. LT PerV is compressible. Procedure Exam performed in department. A preliminary report was called and/or faxed to Elizabeth Medrano. Interpretation Summary No evidence for acute deep venous thrombosis bilateral lower extremities with patent and compressible bilateral great saphenous veins. Ordering Physician: Mar Medrano Referring Physician: Mar Medrano Performed By: Madiha Starks RVT 02/20/18 1720 Date Bran Granados MD CC: No Primary Care Physician; Mar Medrano SUPPORTABILITY ENGINEER Date Dictated: 02/20/18 1606 Date Transcribed: 02/20/181719 Wheel Truer: Signed ONCOLOGY VISIT REPORT Observed: 02/20/2018 Status: F Source: SECOR 4:42 PM [facility] [place] REPOSIT[facility] [address] [place] [address]. [place] [address] OFFICE VISIT Date of Service: 02/20/18 1512 MR#: [id number] Acct: [id number] Name: LINDSAY ANTUNEZ Rep #: [id number] : 1965 From: Mar Medrano SUPPORTABILITY ENGINEER-C Age/Sex: 52/F Location: [facility] Status: Signed Subjective - Date of Service Date of Service:: 02/20/18 - Chief Complaint Acute visit- LLE swelling - History of Present Illness Patient is a 52-year-old female perimenopausal who never had screening mammographies and became aware of a painless lump in the left breast and a second lump in the left axilla in August 2017. She did not seek any medical care until October 09, 2017 when she developed chest pain and dyspnea. She was seen in [facility], diagnosed and treated for pneumonia and referred to surgical consultation when the breast mass was noted on exam. Mammography and ultrasound examination confirmed the palpable abnormalities. On October 12, 2017 she underwent biopsies from the left breast mass and the left axilla that confirmed an invasive lobular carcinoma nuclear grade 3 ER negative, DC negative, HER-2 overexpressed 3+. On October [address] scan of the chest that showed emphysematous changes and diffuse bony lytic lesions throughout the thoracic and lumbar vertebrae and lower cervical segments, lytic lesions in humeral heads bilaterally, sternum, clavicles, left scapula and several ribs bilaterally. CT scan of the abdomen and pelvis showed an indeterminate lesion too small to characterize in the liver but no other visceral disease, widespread bony metastatic disease was again noted. A bone scan October 2017 initial staging showed diffuse skeletal metastatic disease. A bone biopsy October 27, 2017 confirmed metastatic cancer of breast origin. Brain MRI showed small multiple metastatic lesions one in the posterior right internal capsule, multiple bilateral small cerebellar metastases. Completed focal brain radiation. Although on 02/09/2018, patient was evaluated by [facility] in follow- up and upon review, the previously treated lesions were stable to improved but there were multiple new punctate lesions noted especially in the cerebellum. Recommendation was to complete whole brain radiation therapy. Referred to Dr. Schroeder. CA 27-29 not elevated at diagnosis and therefore will not aid in follow-up. Her family history is notable for 2 maternal aunts with breast cancers but no first-degree relatives was breast cancer Treatment: Focal radiation therapy to the sites of disease in the STATE PILOT at [facility] 10/2017 Bgymbaojsj-Dcamoxdyvha-Nswffpeu 11/29/2017- - Interval History The patient is presenting to clinic for an acute visit at her request with c/o LLE swelling. States she returned home from a vacation to [place] yesterday midday, estimates the trip was approximately 7 hour, although states she did make conscious attempt to stop frequently and ambulate. Noted bilateral lower extremity swelling yesterday but states As the day goes on the left side is getting more tight. C/o left lower extremity calf tightness and mild pain. Denies pain in the RLE. Specifically denies dizziness, CP, SOB, palpitations and bleeding/bruising. - Past Medical/Social History Past Medical History Past Medical History: Pneumonia Cancer: Breast cancer Other Cancer History: Radiation to brain Social History Social History: No changes Smoking Status Former smoker Review of Systems Constitutional:: Denies: Fever, Sweats, Weight loss, Appetite change, Chills Cardiovascular:: Reports: Dyspnea on exertion - unchanged from baseline. Denies: Chest pain, Palpitations, Orthopnea, PND, Shortness of breath Respiratory: Denies: Cough, Hemoptysis, Shortness of Breath, Wheezing Gastrointestinal:: Denies: Abdominal pain, Nausea, Vomiting, Diarrhea, Constipation, Hematochezia Genitourinary: Denies: Dysuria, Hematuria, 15, Flank pain Musculoskeletal:: Reports: Back pain - chronic, cancer related Skin: Denies: Rash, Skin Changes, Wounds Neurological:: Reports: Frequent falls. Denies: Headache, Dizziness, Numbness, Tingling, Visual changes, Tinnitus, Hearing loss Psychiatric: Denies: Anxiety, Depression, Homicidal Ideations, Suicidal Ideations Vital Signs Height 5 ft 2 in Weight: 132 lb 11.2 oz - Physical Exam General: Alert, Oriented x3, No apparent distress HEENT: Atraumatic, Normocephalic Oropharynx:: Negative for: Dry mucosa, Ulcerated lesions Neck:: Supple, Trachea midline. Negative for: JVD, bilateral Cardiac:: Regular rate, Regular rhythm, Normal S1, Normal S2. Negative for: Murmur Lungs: Clear to auscultation, Excusion symmetrical. Negative for: Rhonchi, Wheezes Abdomen:: Bowel sounds x 4, Soft, Non-tender, Non-distended. Negative for: Hepatosplenomegaly Extremities:: Clubbing, Edema - BLE with L>R, non pitting, Capillary refill <3 sec, Calf tenderness - LLE. Negative for: Cyanosis, Diminished peripheral pulses Skin:: Negative for: Lesions, Rash, Petechiae, Ecchymosis Psychiatric:: Appropriate affect, Euthymic Lymphatics:: Negative for: Cervical lymphadenopathy, Axillary lymphadenopathy Diagnostic Data: 02/20/18 Echocardiogram LVF normal, EF 65%. 02/20/18 BLE venous doppler negative for DVT Assessment and Plan 52-year-old female, perimenopausal with stage IV invasive lobular carcinoma of the left breast (T2, N3, M1) with metastases to left axillary, left supraclavicular and left cervical lymph nodes in addition to widespread metastatic disease to bone , an indeterminate lesion in the liver too small to characterize, and multiple bilateral low- volume brain metastases without visible edema. Disease is ER negative, DC negative, HER-2 overexpressed. Echocardiography showed adequacy of cardiac function with an ejection fraction 65%. #1 Stage IV HER2+ lobular carcinoma of the left breast- Systemic chemotherapy, Taxotere/pertuzumab/trastuzumab on hold at this time d/t management of STATE PILOT disease involvement discussed below. #2 STATE PILOT metastasis- Concluded focal brain radiation for metastatic disease in the STATE PILOT at [facility] 10/2017. Recent MRI obtained 01/29/18 revealed previously treated lesions were stable to improved but there were multiple new punctate lesions noted especially in the cerebellum. Plans WBI under the care of Dr. Schroeder. CT simulation planned for 02/22/18. #3 Cancer related back pain- Managed by Dr. Anderson. Pain well-controlled on current medications at the present time. #4 BLE edema- Preliminary read of BLE doppler negative for DVT. Encouraged her to elevated LE when able and continued activity. RTC as previously planned , 02/22/[address] Schroeder. Comorbid conditions COPD, active smoker, poor dentition. Patient was in agreement with aforementioned plan. Mar Medrano, ALONDRA, REGIONAL ENVIRONMENTAL MANAGER-C, AOCNP Medications: Prescriptions This Visit Medication Instructions Recorded Dexamethasone 4 mg PO BID #30 tab 10/19/17 Lidocaine/Prilocaine 30 gm TP DAILY PRN PRN #1 cream..g. 10/19/17 [Lidocaine-Prilocaine Cream] Primary Care Provider: No Primary Care Phys Referring Provider: Carolina Pak MD - Problem List (1) Primary cancer of left female breast Status: Chronic (2) Bone metastases Status: Chronic (3) Cancer related pain Status: Acute (4) Brain metastases Status: Chronic (5) Lower extremity edema Status: Acute 02/20/18 1642 <Electronically signed by Mar HERNANDESC> Date Mar HERNANDESC Cosigner Signature: Date (if applicable) CC: CBC W/DIFF, AUTOMATED Collected: 02/20/2018 Status: C Source: [place] 3:15 PM [facility] REPOS[facility] Order Comment: Reason for Laboratory Test . TYPE CODE TESTS RESULT OUT OF RANGE REFERENCE UNITS LAB L100.1000 4.4-11.0 K/mm3 High WBC 15.5 LAB L100.1200 4.2-5.4 M/mm3 Low RBC 2.77 LAB L100.1300 12.0-15.0 g/dl Low HGB 9.2 LAB L100.1400 37-47 % Low HCT 30.4 LAB L100.1500 81-99 fL High MCV 109.7 LAB L100.1600 27.0-32.0 pg High MCH 33.2 LAB L100.1700 32-36 g/gl Low MCHC 30.3 LAB L100.1810 11.6-14.6 % High RDW CV 18.2 LAB L100.1820 35.1-43.9 fl High RDW SD 69.6 LAB L100.1900 150-450 K/mm3 PLT Normal 221 LAB L100.2000 6.2-12.0 fl MPV Normal 9.3 LAB L100.3100 MANUAL DIFF CELLS Normal COUNTED 100 LAB L100.3200 47-70 % SEGS 69 Normal LAB L100.3300 0-5 % BAND 3 Normal LAB L100.3400 0-1 % High META 4 LAB L100.3500 0-0 High MYELO 3 LAB L100.3800 19-41 % LYMPH 20 Normal LAB L100.4100 0-1 % 1 Normal BASOPHIL LAB L100.2620 2.0-7.7 X10 3/uL High Absolute Neut 11.1 LAB L100.2720 0.83-4.51 X10 3/ul Normal Absolute Lymph 3.09 LAB L100.5500 ADEQ PLT Normal EST ADEQUATE LAB L100.7300 ANISO 1+ Normal LAB L100.7800 1+ Normal MACROCYTE LAB L100.9900 PATH Normal REV Reviewed Result Comment: Leukocytosis. Neutrophilic left shift. Macrocytic anemia. Clinical correlation necessary. Chalo Chappell M.D. 02/21/18 AMENDED REPORT 02/21/18 1435 PATH REV previously reported as: January Performed By: #### L100.0100 #### [facility] [address] [place], [address] COMPREHENSIVE METABOLIC Collected: 02/20/2018 Status: F Source: [facility] 3:15 PM [facility] Order Comment: Reason for Laboratory Test . TYPE CODE TESTS RESULT OUT OF RANGE REFERENCE UNITS LAB L501.0100 74-106 mg/dL Normal GLU 77 Result Comment: Please note revised GLUCOSE reference range effective 2017. LAB L501.1000 7-18 mg/dL Low BUN 6 LAB L501.1100 0.55-1.02 mg/dL Normal CREAT,SERUM 0.55 Result Comment: The validity of the calculated GFR AND GFRAA in patients over 70 years has not been determined. Clinical correlation is essential. LAB L501.1110 >60 mL/min Normal EST GFR 125 Result Comment: Non- GFR Calc LAB L501.1115 >60 mL/min Normal EST GFR - AA 151 Result Comment: GFR Calc LAB L501.1255 ml/min Normal Estimated CRCL 96.78 LAB L501.1300 10-20 RATIO Normal BUN/CRE 10.9 LAB L501.1500 6.4-8. g/dL Normal 2 T PROT 6.5 LAB L501.1800 3.2-5. g/dL Normal 0 ALB 3.4 LAB L501.1950 2.2-4. g/dL Normal 2 GLOB 3.1 LAB L501.2000 0.9-2. RATIO Normal 4 A/G 1.1 LAB L501.2200 8.5-10 mg/dL Normal .1 CA 8.7 LAB L501.4100 15-37 U/L Normal AST 17 LAB L501.4305 45-117 U/L Normal ALK P 105 LAB L501.4405 13-56 U/L Normal ALT 23 LAB L501.4600 0.20-1 mg/dL Normal .00 T BILI 0.30 LAB L501.5300 136-14 mmol/L Normal 5 NA 144 LAB L501.5600 3.5-5. mmol/L Normal 1 K 4.3 LAB L501.5900 98-107 mmol/L High CL 108 LAB L501.6100 21.0-3 mmol/L Normal 2.0 CO2 28.0 LAB L501.6200 5-15 Normal GAP 8 Performed By: #### L500.4050 #### [facility] [address] [place], [address] ECHO, COMPLETE W/ Observed: 02/20/2018 Status: F Source: SECOR CONTRAST 1:27 PM [facility]POS[facility] [address] [place] [address] Echo Complete 02/20/18 0922 MR#: [id number] Acct: [id number] Name: LINDSAY ANTUNEZ Rep #: [id number] : 1965 52 From: Amilcar Rees MD Attending Dr: Carolina Pak MD Status: REG CLI Ordering Dr: Carolina Pak MD Date: 02/20/18 Location: CVS Sex: F C Admitted: Reason For Study: malignant neoplasm Procedure This was a 2D Doppler, Color Flow transthoracic echocardiogram. The exam was of adequate technical quality. Exam performed in department. Left Ventricle Normal LV size. Left ventricular systolic function is normal. The estimated ejection fraction is 65 %. Normal diastology for age. No regional wall motion abnormalities noted. Right Ventricle Normal RV size. Normal systolic function. Atria Normal left atrium. Normal right atrium. No doppler evidence for ASD. Mitral Valve There is no mitral annular calcification. Normal mitral valve. Trivial mitral valve insufficiency. Tricuspid Valve Normal tricuspid valve. Mild tricuspid valve insufficiency. Right ventricular systolic pressure estimated to be 26 mmHg. Aortic Valve Trisinus/trileaflet aortic valve. Normal aortic valve. Pulmonic Valve The pulmonic valve is not well visualized. Trivial pulmonic valve insufficiency. Great Vessels Normal sized aortic root. Pericardium/Pleural No pericardial effusion. MMode/2D Measurements AND Calculations LVIDd: 4.0 cm IVSd: 0.97 cm Ao root diam: 3.2 cm LVIDs: 2.8 cm LVPWd: 1.2 cm LA dimension: 3.5 cm RVDd: 3.4 cm FS: 31.6 % LAV(MOD-bp): 41.4 ml LA A4 area: 14.7 cm2 RA A4 area: 11.2 cm2 LAV(MOD-bp) Indexed: 25.5 ml/m2 LAV(MOD-sp2): 43.5 ml LAV(MOD-sp4): 35.4 ml Time Measurements MV dec time: 0.20 sec Doppler Measurements AND Calculations MV E max alexandria: 88.4 cm/sec Lat Peak E' Alexandria: 10.7 cm/sec Med Peak E' [place]: 9.6 cm/sec MV A max [place]: 77.6 cm/sec E/E' lat: 8.3 E/E' med: 9.2 MV E/A: 1.1 MV V2 max: 113.6 cm/sec MV P1/2t max a[place]: 112.7 cm/sec Ao V2 max: 159.2 cm/sec MV max P.2 mmHg MV P1/2t: 63.6 msec Ao max P.1 mmHg MV V2 mean: 61.8 cm/sec MV dec slope: 518.9 cm/sec2 Ao V2 mean: 100.4 cm/sec MV mean P.8 mmHg MVA(P1/2t): 3.5 cm2 Ao mean P.6 mmHg MV V2 VTI: 30.0 cm Ao V2 VTI: 28.2 cm LV V1 max: 115.3 cm/sec PA V2 max: 122.3 cm/sec TR max alexandria: 238.6 cm/sec LV V1 max P.3 mmHg TR max P.8 mmHg LV V1 mean P.7 mmHg LV V1 mean: 75.8 cm/sec LV V1 VTI: 24.2 cm Interpretation Summary Left ventricular systolic function is normal. The estimated ejection fraction is 65 %. Trivial mitral valve insufficiency. Mild tricuspid valve insufficiency. Trivial pulmonic valve insufficiency. Right ventricular systolic pressure estimated to be 26 mmHg. Normal diastology for age. Ordering Physician: Carolina Pak Referring Physician: Carolina Pak Performed By: Chandan Weller [facility] 02/20/181325 Date Amilcar Rees MD CC: No Primary Care Physician; Carolina Pak MD Date Dictated: 02/20/18921 Date Transcribed: 02/20/181325 Wheel Truer: Signed ONCOLOGY FOLLOW-UP Observed: 02/13/2018 Status: F Source: SECOR VISIT 2:49 PM [facility] Medical Records Department [address] [place] [address] Oncology Follow-Up Visit 02/13/18 1423 MR#: [id number] Acct: [id number] Name: LINDSAY ANTUNEZ Rep #: [id number] : 1965 52 From: Kev Schroeder DO PCP: Care Physician, No Primary Status: REG RCR Y Location: [facility] Date of Service: 02/13/18 Last Clinic Visit: 10/26/17 Diagnosis: Lindsay Antunez is a 52-year-old female diagnosed with widely 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 From 11/14/17 - 11/16/17 she received FSRT consisting of 2400 cGy delivered in 3 fractions to the 10 STATE PILOT lesions noted on the MRI. Repeat MRI brain 01/29/18 showed evidence for multifocal disease progression within the STATE PILOT. History of Present Illness: 10/09/2017: Patient was seen in the emergency room due to left shoulder pain radiating to the right shoulder with right-sided chest pain as well as left nipple retraction with left breast discharge. 10/10/2017: Bilateral diagnostic mammogram was performed and demonstrated a 2.1 x 2.4 cm spiculated mass in the retroareolar region of the left breast which corresponds to the palpable abnormality, there are diffuse microcalcifications seen within it, there is also evidence of left axillary lymphadenopathy, no other significant abnormalities were identified. BI-RADS 5. 10/12/2017: CT chest was completed and showed evidence for diffuse lytic lesions seen throughout the thoracic and lumbar vertebrae, lucent lesions are also identified in the lower cervical segment as well as the humeral heads bilaterally. There is evidence of lytic lesions noted in the sternum as well as along the medial aspect of the clavicles as well as the left scapula. Also suspected or lytic lesions that are very small and several bilateral ribs. A left breast mass is identified as well as several enlarged left axillary lymph nodes. There is also a few scattered subcutaneous tissue nodules noted. 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 10/20/2017: Patient completed brain MRI with contrast which demonstrated evidence for 5 lesions consistent with metastatic disease for lesion is located within the cerebellum and the fifth lesion located in the posterior internal capsule on the right side. There is minimal associated edema. There is also heterogeneous low signal within the calvarium present which may represent an infiltrative bone marrow process though no focal calvarial lesions are noted, upper cervical spine shows multiple areas of osseous enhancement consistent with metastatic disease. 10/20/2017: MRI of the cervical thoracic and lumbar spine was completed which demonstrated evidence for diffuse osseous metastatic disease with a lytic appearance, no pathologic compression fractures or spinal cord compression is identified, no paraspinal masses are identified, there are no intra-canalicular lesions seen. 10/25/2017: CT abdomen and pelvis with contrast was performed which demonstrated evidence for diffuse osseous disease within the thoracic and lumbar spine as well as the sacrum and pelvis and both proximal femora. There is a single 7 mm hypodense lesion in the right liver, but no evidence for other sites of metastatic disease. 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 From 11/14/17 - 11/16/17: Patient received FSRT consisting of 2400 cGy delivered in 3 fractions to the 10 STATE PILOT lesions noted on the MRI. 11/29/17: Initiated Pertuzumab/Trastuzumab/Taxotere 01/29/2018: MRI brain was completed which demonstrated evidence for increasing number of metastatic lesions when compared to the prior study. 01/29/2018: Chest x-ray of the lumbar and thoracic spine was completed. There is diffuse osseous metastatic disease and chronic appearing compression fractures of T11, T12, and L1. 02/09/2018: Patient was evaluated by [facility] retinoic in follow- up after completing brain FSRT. Upon review, the previously treated lesions were stable to improved but there were multiple new punctate lesions noted especially in the cerebellum. Recommendation was to complete whole brain radiation therapy. Radiation Treatment History: 1) From 11/14/17 - 11/16/17: Patient received FSRT consisting of 2400 cGy delivered in 3 fractions to the 10 STATE PILOT lesions noted on the MRI. Denies history of collagen vascular disease and denies having a pacemaker. Interval History: Patient presents for follow-up after being diagnosed with multifocal STATE PILOT progression on MRI completed on 01/29/2018. She reports that she has tolerated chemotherapy fairly well but does have alopecia and fatigue. She also reports that she fell a few weeks ago and has pain involving the lumbar spine in the upper thoracic spine, mostly the pain is 2 out of 10 but can range up to 7-10 out of 10 at times. She is taking a continuous release patch as well as Vicodin for relief. She reports that she remains very active and can complete all activities of daily living without any difficulty. She denies having any chest pain, shortness of breath, hemoptysis, nausea/vomiting, or diarrhea/constipation. She denies having any headaches, seizures, focal areas of weakness/numbness, ataxia, changes in coordination, or difficulties with short-term memory. She does believe that since starting chemotherapy she has had occasionally more fogginess of her mental clarity. I have reviewed the medical, surgical, and other pertinent history in details and have updated medication and allergy information in the electronic medical record. Review of Systems: A 12-point review of systems was completed and was negative except for what is noted in the HPI/Interval History and by the nurse. Height/Weight/BMI: Height: 5 ft 2 in Weight: 60.192 kg BMI: 22.3 Vital Signs Temperature 98.8 F 02/13/18 12:09 Temperature Source Oral 02/13/18 12:09 Pulse Rate 109 H 02/13/18 12:09 Respiratory Rate 18 02/13/18 12:09 Respiratory Pattern Normal 01/18/18 15:22 Physical Exam: ECO KARNOFSKY SCORE: 90% CONSTITUTIONAL: Well-developed, well-nourished, and in no apparent distress. HEENT: Mucous membranes moist. No evidence of thrush or lesions within the visualized oropharynx or oral cavity. No trismus. Pupils are equal, round, and reactive to light and accommodation. Extraocular movements are intact. Sclerae are anicteric. NECK: Supple,with no thyromegaly, and non-tender. Trachea midline. No cervical or supraclavicular adenopathy noted. CARDIAC: Regular rate and rhythm. Normal S1, S2. No murmurs, rubs, or gallops. PULMONARY/CHEST: Lungs are clear to auscultation and percussion bilaterally. No wheezes, rhonchi, or crackles noted. No increased work of breathing. ABDOMINAL: Abdomen soft, non-tender, non-distended. No hepatomegaly. Normoactive bowel sounds in all four quadrants. No guarding, rebound. BACK: Straight and aligned. No CVA tenderness. Tenderness to palpation is noted in the axial skeleton involving the lumbar region as well as the upper thoracic spine, otherwise nontender to palpation. EXTREMITIES: Full range of motion in all four extremities, with normal strength equally and symmetrically. No evidence of edema. No clubbing. NEUROLOGICAL EXAM: Alert and oriented x 3. Cranial nerves II through XII are grossly intact. No focal neurological deficit. Speech is fluent. There is no upper or lower extremity sensory deficit or motor deficit. Muscle strength is 5/5 in all muscle groups. Gait and posture are steady. 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 From 11/14/17 - 11/16/17 she received FSRT consisting of 2400 cGy delivered in 3 fractions to the 10 STATE PILOT lesions noted on the MRI. Repeat MRI brain 01/29/18 showed evidence for multifocal disease progression within the STATE PILOT. Plan: I did detailed discussion with the patient regarding the MRI imaging findings suggesting progressive STATE PILOT disease multifocally within the brain. Clinically she is doing very well and appears asymptomatic other than having back pain mostly related to a previous fall and some fatigue from chemotherapy. I discussed that because of the imaging findings suggesting multifocal disease recurrence and that this is within 3 months of her previous focal radiation to 10 lesions that it would be very reasonable to pursue whole brain radiation therapy at this time. This is been recommended by the STATE PILOT team at [facility] as well. I discussed the goals of therapy which would include to improve disease control within the brain and prevent worsening symptoms related to STATE PILOT disease. I recommend that we do this treatment without concurrent chemotherapy and will instead complete this in between chemotherapy cycles which will be coordinated with her medical oncologist. She is planning to stay on the current systemic therapy at least until CT scans are completed in February to evaluate for response. I discussed the logistics of whole brain radiation therapy including CT simulation, treatment planning, and daily radiation for 10 fractions with weekly physician visits. I discussed the risks, benefits, and alternatives to radiation therapy. I also reviewed the potential acute and chronic toxicities from whole brain radiation therapy which would include but are not limited to alopecia, fatigue, scalp irritation, nausea/vomiting, headache, reduction in hearing, neurocognitive decline, nerve damage, and radiation necrosis. I discussed that because she recently had radiation therapy to 10 areas that there may be a higher risk of toxicity in the setting, in particular the potential for radiation necrosis. I reviewed the use of memantine to reduce the neurocognitive effects of radiation therapy, and I also discussed the option of hippocampal sparing radiation but that this was not currently being done off trial. Following her discussion the patient was in agreement with our recommendation to pursue whole brain radiation therapy with concurrent memantine and informed consent was obtained. She was unwilling to pursue radiation therapy until she had a week off and therefore agreed to return next week for CT simulation in an effort to start whole brain radiation therapy in early February. She was instructed to call with any further questions or concerns in the interim. Kev Schroeder DO, MS Demurrage Agent, Department of Radiation Oncology [facility] 02/13/18 1815 <Electronically signed by Kev Schroeder DO> Date Kev Schroeder DO CC: Carolina Pak MD Signed ONCOLOGY VISIT REPORT Observed: 02/07/2018 Status: F Source: [place] 10:41 AM [facility] REPOSITORY [facility] [address] [place] [id number] OFFICE VISIT Date of Service: 02/07/18 0946 MR#: [id number] Acct: [id number] Name: LINDSAY ANTUNEZ Rep #: [id number] : 1965 From: Carolina Pak MD Age/Sex: 52/F Location: [facility] Status: Signed - Problem List (1) Primary cancer of left female breast Status: Chronic (2) Regional lymph node metastasis present Status: Chronic (3) Bone metastases Status: Chronic (4) Brain metastases Status: Chronic (5) Anemia Status: Chronic - Date of Service Date of Service:: 02/07/18 - Chief Complaint Breast cancer on treatment - History of Present Illness Patient is a 52-year-old female perimenopausal who never had screening mammographies and became aware of a painless lump in the left breast and a second lump in the left axilla in August 2017. She did not seek any medical care until October 09, 2017 when she developed chest pain and dyspnea. She was seen in [facility] emergency room, diagnosed and treated for pneumonia and referred to surgical consultation when the breast mass was noted on exam. Mammography and ultrasound examination confirmed the palpable abnormalities. On October 12, 2017 she underwent biopsies from the left breast mass and the left axilla that confirmed an invasive lobular carcinoma nuclear grade 3 ER negative, DC negative, HER-2 overexpressed 3+. On October [address] scan of the chest that showed emphysematous changes and diffuse bony lytic lesions throughout the thoracic and lumbar vertebrae and lower cervical segments, lytic lesions in humeral heads bilaterally, sternum, clavicles, left scapula and several ribs bilaterally. CT scan of the abdomen and pelvis showed an indeterminate lesion too small to characterize in the liver but no other visceral disease, widespread bony metastatic disease was again noted. A bone scan October 2017 initial staging showed diffuse skeletal metastatic disease. A bone biopsy October 27, 2017 confirmed metastatic cancer of breast origin. Brain MRI showed small multiple metastatic lesions one in the posterior right internal capsule, multiple bilateral small cerebellar metastases. CA 27-29 not elevated at diagnosis and therefore will not aid in follow-up. Her family history is notable for 2 maternal aunts with breast cancers but no first-degree relatives was breast cancer Treatment: [facility] [id number] 11/29/2017- - Past Medical/Social History Past Medical History Past Medical History: Pneumonia Cancer: Breast cancer Other Cancer History: Radiation to brain Social History Social History: No changes Smoking Status Former smoker Review of Systems Constitutional:: Reports: Fatigue. Denies: Fever, Sweats, Weight loss, Appetite change, Chills Cardiovascular:: Denies: Chest pain, Palpitations, Dyspnea on exertion, Orthopnea, PND, Shortness of breath Respiratory: Denies: Cough, Hemoptysis, Shortness of Breath, Wheezing Gastrointestinal:: Reports: Nausea - Appears to be related to increasing use of painkillers since the fall, Gas/bloating. Denies: Abdominal pain, Vomiting, Diarrhea, Constipation, Hematochezia Genitourinary: Denies: Dysuria, Hematuria, 15, Flank pain Musculoskeletal:: Reports: Back pain - Fell accidentally (tripped over a log) and had some worsening back pain being managed by pain consult. Denies: Myalgia, Arthralgia Skin: Reports: Rash - Rash on palms and feet resolved with topical moisturizing creams. Denies: Skin Changes, Wounds Neurological:: Denies: Headache, Dizziness, Visual changes, Tinnitus, Hearing loss Psychiatric: Denies: Anxiety, Depression, Homicidal Ideations, Suicidal Ideations Comment: Mass in the breast is much smaller and softer and can no longer feel the mass in her left axilla Vital Signs Height 5 ft 2 in Weight: 60.509 kg - Physical Exam General: Alert, Oriented x3, No apparent distress, - - ECOG 1 HEENT: Atraumatic, PERRLA, EOMI, Normocephalic Oropharynx:: Dry mucosa Neck:: Supple, Trachea midline, - - Port okay. Negative for: JVD, bilateral Cardiac:: Regular rate, Regular rhythm, Normal S1, Normal S2. Negative for: Murmur Lungs: Clear to auscultation, Excusion symmetrical. Negative for: Rhonchi, Wheezes Abdomen:: Soft, Non-tender, Non-distended. Negative for: Hepatosplenomegaly Extremities:: Negative for: Cyanosis, Edema Neurological: Neuro grossly intact Skin:: Negative for: Lesions, Rash, Petechiae, Ecchymosis Psychiatric:: Appropriate affect, Euthymic Lymphatics:: Negative for: Cervical lymphadenopathy, Supraclavicular lymphadenopathy, Axillary lymphadenopathy - Left axillary lymph node mass no longer palpable Breast:: Lumps - In the left breast a vague mass that feels much softer and smaller than previous, Nipple retraction - Left much less than previously noted Assessment and Plan 52-year-old female, perimenopausal with stage IV invasive lobular carcinoma of the left breast (T2, N3, M1) with metastases to left axillary, left supraclavicular and left cervical lymph nodes in addition to widespread metastatic disease to bone , an indeterminate lesion in the liver too small to characterize, and multiple bilateral low- volume brain metastases without visible edema. Disease is ER negative, DC negative, HER-2 overexpressed. Echocardiography (September 2017 prior to treatment) showed adequacy of cardiac function with an ejection fraction 65%. Comorbid conditions COPD, active smoker, poor dentition. Plan; #1 Concluded focal brain radiation for metastatic disease in the STATE PILOT at [facility] 10/2017. #2 She has extensive widespread bony metastatic disease, that in the spine does not impinge on the spinal cord at presentation #3 Pain management consulted to optimize pain control. Recent increase in back pain following an accidental fall, using more analgesics this month. #4 Systemic therapy, first line treatment this combination of Pertuzumab, trastuzumab and Taxotere given every 3 weeks supported with antiemetics, steroids and primary prophylaxis with Neulasta (patient has extensive metastatic disease involving bones and bone marrow with comorbid COPD making her a higher risk than average for febrile neutropenic sepsis. Plan is for 6-12 cycles of combination therapy depending on response followed by maintenance on Herceptin plus or minus pertuzumab depending on response and tolerance of treatment. Skin rash initially lower extremities which resolved but now rash on the sole of the right foot may be related to Pertuzumab, tolerable and manageable and will continue with his treatment therefore. #5 Bisphosphonate therapy for metastatic bone disease every 3 months in addition to calcium and vitamin D supplement #6 Anemia improved after blood transfusion partly due to metastatic disease to bone marrow and suppression by systemic chemotherapy. No evidence for iron or B12 deficiency found. #7 Echo (/3M of Rx) due February 2018) #8 CA-27-29 not elevated at diagnosis and therefore not helpful and follow-up of disease course. #9 Upper GI dyspeptic symptoms and nausea appears to be related to analgesics use, advised to continue using Pepcid AC twice daily. Patient was seen with her , impression and plan discussed. Medications: Prescriptions This Visit Medication Instructions Recorded Dexamethasone 4 mg PO BID #30 tab 10/19/17 Lidocaine/Prilocaine 30 gm TP DAILY PRN PRN #1 cream..g. 10/19/17 Primary Care Provider: No Primary Care Phys Referring Provider: Carolina Pak MD 02/07/18 1041 <Electronically signed by Carolina Pak MD> Date Carolina Pak MD Cosigner Signature: Date (if applicable) CC: CBC W/DIFF, AUTOMATED Collected: 02/07/2018 Status: F Source: [place] 9:29 AM [facility] [place] REPOSITORY TYPE CODE TESTS RESULT OUT OF RANGE REFERENCE UNITS LAB L100.1000 4.4-11.0 K/mm3 High WBC 13.1 LAB L100.1200 4.2-5.4 M/mm3 Low RBC 2.94 LAB L100.1300 12.0-15.0 g/dl Low HGB 9.5 LAB L100.1400 37-47 % Low HCT 30.4 LAB L100.1500 81-99 fL High MCV 103.4 LAB L100.1600 27.0-32.0 pg High MCH 32.3 LAB L100.1700 32-36 g/gl Low MCHC 31.3 LAB L100.1810 11.6-14.6 % High RDW CV 19.0 LAB L100.1820 35.1-43.9 fl High RDW SD 70.5 LAB L100.1900 150-450 K/mm3 Normal PLT 231 LAB L100.2000 6.2-12.0 fl Normal MPV 9.2 LAB L100.2100 47-70 % High NEUT% 81.9 LAB L100.2200 19-41 % Low LY% 7.6 LAB L100.2300 0-10 % Normal MONO% 9.7 LAB L100.2400 0-5 % Normal EO% 0.0 LAB L100.2500 0-1 % Normal BASO% 0.2 LAB L100.2550 0.0-0.9 % Normal IM GRAN % 0.600 Result Comment: IG% - Immature Granulocytes (promyelocytes, myelocytes and metamyelocytes) > 1% indicates that a LEFT SHIFT is Present. LAB L100.2620 2.0-7.7 X10 3/uL Absolute Neut High 10.7 LAB L100.2720 0.83-4.51 X10 3/ul Absolute Lymph Normal 0.99 LAB L100.5500 ADEQ PLT EST Normal ADEQUATE LAB L100.7300 ANISO Normal 1+ LAB L100.7500 POLYCHROMASIA Normal RARE LAB L100.7600 HYPOCHROMASIA Normal 1+ LAB L100.7800 MACROCYTE Normal 1+ Performed By: #### L100.0100 #### [facility] [address] [place], [place], [address] COMPREHENSIVE METABOLIC Collected: 02/07/2018 Status: F Source: [place] 9:29 AM [facility] REPOSITORY Order Comment: Reason for Laboratory Test Chemotherapy TYPE CODE TESTS RESULT OUT OF RANGE REFERENCE UNITS LAB L501.0100 74-106 mg/dL High GLU 116 Result Comment: Fasting Glucose result from 100 to 125 mg/dL suggests IMPAIRED HOMEOSTASIS per A.D.A. criteria. Please note revised GLUCOSE reference range effective 2017. LAB L501.1000 7-18 mg/dL Low BUN 6 LAB L501.1100 0.55-1.02 mg/dL Normal CREAT,SERUM 0.60 Result Comment: The validity of the calculated GFR AND GFRAA in patients over 70 years has not been determined. Clinical correlation is essential. LAB L501.1110 >60 mL/min Normal EST GFR 112 Result Comment: Non- GFR Calc LAB L501.1115 >60 mL/min Normal EST GFR - AA 135 Result Comment: GFR Calc LAB L501.1255 ml/min Normal Estimated CRCL 88.72 LAB L501.1300 10-20 RATIO Normal BUN/CRE 10.0 LAB L501.1500 6.4-8. g/dL Normal 2 T PROT 6.5 LAB L501.1800 3.2-5. g/dL Normal 0 ALB 3.6 LAB L501.1950 2.2-4. g/dL Normal 2 GLOB 2.9 LAB L501.2000 0.9-2. RATIO Normal 4 A/G 1.2 LAB L501.2200 8.5-10 mg/dL Normal .1 CA 8.8 LAB L501.4100 15-37 U/L Low AST 8 LAB L501.4305 45-117 U/L Normal ALK P 107 LAB L501.4405 13-56 U/L Normal ALT 16 LAB L501.4600 0.20-1 mg/dL Normal .00 T BILI 0.50 LAB L501.5300 136-14 mmol/L Normal 5 NA 140 LAB L501.5600 3.5-5. mmol/L Normal 1 K 4.0 LAB L501.5900 98-107 mmol/L Normal CL 107 LAB L501.6100 21.0-3 mmol/L Normal 2.0 CO2 26.0 LAB L501.6200 5-15 Normal GAP 7 Performed By: #### L500.4050 #### [facility] [address] [place], [address] BRAIN W/WO CONTRAST Observed: 01/29/2018 Status: F Source: SECOR 12:44 PM [facility] REPOSITORY [facility] [address] [place] [address] Brain W/WO Contrast MR#: [id number] Acct: [id number] Name: LINDSAY ANTUNEZ Rep #: [id number] : 1965 F 52 From: Gilles Doan MD PCP: Care Physician, No Primary Status: REG CLI Study: Brain W/WO Contrast Date of Exam: 01/29/18 Exam# [id number] Ordering Dr: ALEJANDRO OSCAR STUDY: MRI BRAIN WITH AND WITHOUT CONTRAST REASON FOR EXAM: Female, 52 years old. Breast cancer staging TECHNIQUE: Standardized multiplanar fat and water weighted pulse sequences were obtained. 7 ml of Gadavist contrast material was administered intravenously for the contrast portion of the examination. COMPARISON: October 14, 2017 FINDINGS: Normal size of the ventricles and extra-axial spaces for the patient's age. Normal white matter tracts of the supratentorial brain. Normal bilateral basal ganglia. Normal thalami. There is no extra-axial fluid accumulation. Normal flow voids within the major intracranial circulation suggesting patency by spin echo criteria. Normal venous enhancement. There is a tiny enhancing nodule within the left ventral mesencephalon and slightly larger enhancing nodule in the left occipital lobe which may be consistent with metastatic disease. There is a similar-appearing although smaller nodule in the right parietal lobe. There appear to be multiple small enhancing densities in the cerebellar hemispheres some of which are felt to be artifactual Normal sella turcica, pituitary gland, infundibular stalk, optic chiasm and hypothalamus. Normal tectal plate and pineal gland. Normal midbrain, jose and medulla. . Normal basal cisterns. Normal bilateral temporal bones. Normal bilateral internal auditory canals. No demonstrated orbital abnormality, within the constraints of a routine brain study. Normal visualized paranasal sinuses. Normal calvarium and skull base. Normal visualized soft tissue structures. Normal visualized upper cervical spine. The previously noted lesion in the right internal capsule not visualized on current study. The other supratentorial nodules are new findings and there are increased number of lesions in the cerebellum The number of enhancing lesions has increased since prior study MRI/Brain W/WO Contrast IMPRESSION: Findings consistent with brain metastasis which have increased in number since previous study. Electronically Signed: Gilles Doan MD at 22:24 EDT , Service support , CC: ALEJANDRO OSCAR; No Primary Care Physician Wheel Truer: Signed LUMBAR SPINE 2 OR 3 Observed: 01/29/2018 Status: F Source: SECOR VIEWS 10:23 AM [facility] REPOSITORY [facility] [address] [place] [address] Lumbar Spine 2 or 3 Views MR#: [id number] Acct: [id number] Name: LINDSAY ANTUNEZ Rep #: [id number] : 1965 F 52 From: Ashutosh Sofia DO PCP: Care Physician, No Primary Status: REG CLI Study: Lumbar Spine 2 or 3 Views Date of Exam: 01/29/18 Exam# [id number] Ordering Dr: Lauro Anderson MD STUDY: X-RAY - LUMBAR SPINE REASON FOR EXAM: Female, 52 years old. Low back pain TECHNIQUE: 3 view(s) of the lumbar spine were obtained. COMPARISON: Bone scan dated 10/30/17 FINDINGS: There is an exaggerated lumbar lordosis. There is no substantial scoliosis. There is a normal alignment of the vertebrae. There is multilevel endplate spondylosis of the lumbar vertebrae. There is multi-level degenerative disc disease with multi-level disc space narrowing. Diffuse osseous metastatic disease. Chronic appearing compression fractures of T11 and T12 and L1. The soft tissue structures are unremarkable. RAD/Lumbar Spine 2 or 3 Views IMPRESSION: Degenerative changes of the spine, as detailed above. Osseous metastatic disease Electronically Signed: Ashutosh Sofia DO at 11:35 EDT Tel , Service support , CC: No Primary Care Physician; Lauro Anderson MD Wheel Truer: Signed THORACIC SPINE 3 Observed: 01/29/2018 Status: F Source: KRYSTAL VIEWS 10:23 AM [facility] REPOSITORY [facility] [address] [place] [address] Thoracic Spine 3 Views MR#: [id number] Acct: [id number] Name: LINDSAY ANTUNEZ Rep #: [id number] : 1965 F 52 From: Ashutosh Sofia DO PCP: Care Physician, No Primary Status: REG CLI Study: Thoracic Spine 3 Views Date of Exam: 01/29/18 Exam# [id number] Ordering Dr: Lauro Anderson MD STUDY: X-RAY - THORACIC SPINE REASON FOR EXAM: Female, 52 years old. Thoracic spine pain. Metastatic breast cancer TECHNIQUE: 3 view(s) of the thoracic spine were obtained. COMPARISON: Bone scan dated October 30, 2017 FINDINGS: Normal kyphosis of the thoracic spine. There is no substantial scoliosis. There is multilevel endplate spondylosis of the thoracic vertebrae. There is multilevel disc space narrowing of the thoracic spine. Diffuse osseous metastatic disease The soft tissue structures are unremarkable. RAD/Thoracic Spine 3 Views IMPRESSION: Diffuse osseous metastatic disease and degenerative change Electronically Signed: Ashutosh Sofia DO at 11:35 EDT Tel , Service support , CC: No Primary Care Physician; Lauro Anderson MD Wheel Truer: Signed ONCOLOGY VISIT REPORT Observed: 01/17/2018 Status: F Source: SECOR 11:23 AM [facility] REPOSITORY [facility] [place] [address] OFFICE VISIT Date of Service: 01/17/18 1114 MR#: [id number] Acct: [id number] Name: LINDSAY ANTUNEZ Rep #: [id number] : 1965 From: Carolina Pak MD Age/Sex: 52/F Location: ONC Status: Signed - Problem List (1) Primary cancer of left female breast Status: Chronic (2) Regional lymph node metastasis present Status: Chronic (3) Bone metastases Status: Chronic (4) Brain metastases Status: Chronic (5) Anemia Status: Chronic - Date of Service Date of Service:: 01/17/18 - Chief Complaint Metastatic breast cancer on treatment - History of Present Illness Patient is a 52-year-old female perimenopausal who never had screening mammographies and became aware of a painless lump in the left breast and a second lump in the left axilla in August 2017. She did not seek any medical care until October 09, 2017 when she developed chest pain and dyspnea. She was seen in [facility], diagnosed and treated for pneumonia and referred to surgical consultation when the breast mass was noted on exam. Mammography and ultrasound examination confirmed the palpable abnormalities. On October 12, 2017 she underwent biopsies from the left breast mass and the left axilla that confirmed an invasive lobular carcinoma nuclear grade 3 ER negative, DC negative, HER-2 overexpressed 3+. On October [address] scan of the chest that showed emphysematous changes and diffuse bony lytic lesions throughout the thoracic and lumbar vertebrae and lower cervical segments, lytic lesions in humeral heads bilaterally, sternum, clavicles, left scapula and several ribs bilaterally. CT scan of the abdomen and pelvis showed an indeterminate lesion too small to characterize in the liver but no other visceral disease, widespread bony metastatic disease was again noted. A bone scan October 2017 initial staging showed diffuse skeletal metastatic disease. A bone biopsy October 27, 2017 confirmed metastatic cancer of breast origin. Brain MRI showed small multiple metastatic lesions one in the posterior right internal capsule, multiple bilateral small cerebellar metastases. CA 27-29 not elevated at diagnosis and therefore will not aid in follow-up. Her family history is notable for 2 maternal aunts with breast cancers but no first-degree relatives was breast cancer Treatment: [facility] Rxdqjxhrkg-Eqlsvrkyrlt-Chmmyarl 11/29/2017- - Past Medical/Social History Past Medical History Past Medical History: Pneumonia Cancer: Breast cancer Other Cancer History: Radiation to brain Social History Social History: No changes Smoking Status Former smoker Review of Systems Constitutional:: Reports: Fatigue. Denies: Fever, Sweats, Weight loss, Appetite change, Chills Cardiovascular:: Reports: Dyspnea on exertion. Denies: Chest pain, Palpitations, Orthopnea, PND, Shortness of breath Respiratory: Reports: Shortness of breath upon exertion. Denies: Cough, Hemoptysis, Shortness of Breath, Wheezing Gastrointestinal:: Denies: Abdominal pain, Nausea, Vomiting, Diarrhea, Constipation, Hematochezia Genitourinary: Denies: Dysuria, Hematuria, 15, Flank pain Musculoskeletal:: Reports: - - Bone pains are well-controlled with very infrequent use of breakthrough analgesia sometimes none on days. Denies: Back pain, Myalgia, Arthralgia Skin: Reports: Rash - 2 weeks earlier developed a rash on the lower extremities that resolved with an [id number]-[id number] topical allergy prep. Over the past few days developed some rash and sensitivity over the sole of the right foot again improving with the same topical application. Denies: Skin Changes, Wounds Neurological:: Denies: Headache, Dizziness, Visual changes, Tinnitus, Hearing loss Psychiatric: Denies: Anxiety, Depression, Homicidal Ideations, Suicidal Ideations Comment: Cannot feel the lump in the breast or the axilla anymore Vital Signs Height 5 ft 2 in Weight: 60.509 kg - Physical Exam General: Alert, Oriented x3, No apparent distress, - - ECOG 1-2 HEENT: Atraumatic, PERRLA, EOMI, Normocephalic Oropharynx:: Dry mucosa Neck:: Supple, Trachea midline, - - Port okay. Negative for: JVD, bilateral Cardiac:: Regular rate, Regular rhythm, Normal S1, Normal S2. Negative for: Murmur Lungs: Clear to auscultation, Excusion symmetrical. Negative for: Rhonchi, Wheezes Abdomen:: Soft, Non-tender, Non-distended. Negative for: Hepatosplenomegaly Extremities:: Negative for: Cyanosis, Edema Neurological: Neuro grossly intact Skin:: Rash - Violaceous flat non-ulcerated rash at least 2 areas measuring 1 cm in diameter over the sole of the right foot. Negative for: Lesions, Petechiae, Ecchymosis Psychiatric:: Appropriate affect, Euthymic Lymphatics:: Axillary lymphadenopathy. Negative for: Cervical lymphadenopathy, Supraclavicular lymphadenopathy Laboratory Data: Laboratory Tests WBC 11.4 H (4.4-11.0) K/mm3 RBC 2.88 L (4.2-5.4) M/mm3 Assessment and Plan 52-year-old female, perimenopausal with stage IV invasive lobular carcinoma of the left breast (T2, N3, M1) with metastases to left axillary, left supraclavicular and left cervical lymph nodes in addition to widespread metastatic disease to bone , an indeterminate lesion in the liver too small to characterize, and multiple bilateral low- volume brain metastases without visible edema. Disease is ER negative, DC negative, HER-2 overexpressed. Echocardiography (September 2017 prior to treatment) showed adequacy of cardiac function with an ejection fraction 65%. Comorbid conditions COPD, active smoker, poor dentition. Plan; #1 Concluded focal brain radiation for metastatic disease in the [facility] at [facility] 10/2017. #2 She has extensive widespread bony metastatic disease, that in the spine does not impinge on the spinal cord at presentation #3 Pain management consulted to optimize pain control. #4 Systemic therapy, first line treatment this combination of Pertuzumab, trastuzumab and Taxotere given every 3 weeks supported with antiemetics, steroids and primary prophylaxis with Neulasta (patient has extensive metastatic disease involving bones and bone marrow with comorbid COPD making her a higher risk than average for febrile neutropenic sepsis. Plan is for 6-12 cycles of combination therapy depending on response followed by maintenance on Herceptin plus or minus pertuzumab depending on response and tolerance of treatment. Skin rash initially lower extremities which resolved but now rash on the sole of the right foot may be related to Pertuzumab, tolerable and manageable and will continue with his treatment therefore. #5 Bisphosphonate therapy for metastatic bone disease every 3 months in addition to calcium and vitamin D supplement #6 Anemia improved after blood transfusion partly due to metastatic disease to bone marrow and suppression by systemic chemotherapy. No evidence for iron or B12 deficiency found. Patient was seen with her , impression and plan discussed. Medications: Prescriptions This Visit Medication Instructions Recorded Dexamethasone 4 mg PO BID #30 tab 10/19/17 Lidocaine/Prilocaine 30 gm TP DAILY PRN PRN #1 cream..g. 10/19/17 Primary Care Provider: No Primary Care Phys Referring Provider: Carolina Pak MD 01/17/18 1123 <Electronically signed by Carolina Pak MD> Date Carolina Pak MD Cosigner Signature: Date (if applicable) CC: CBC W/DIFF, AUTOMATED Collected: 01/17/2018 Status: F Source: [place] 9:21 AM [facility] REPOSITORY TYPE CODE TESTS RESULT OUT OF RANGE REFERENCE UNITS LAB L100.1000 4.4-11.0 K/mm3 High WBC 11.4 LAB L100.1200 4.2-5.4 M/mm3 Low RBC 2.88 LAB L100.1300 12.0-15.0 g/dl Low HGB 9.3 LAB L100.1400 37-47 % Low HCT 29.1 LAB L100.1500 81-99 fL High MCV 101.0 LAB L100.1600 27.0-32.0 pg High MCH 32.3 LAB L100.1700 32-36 g/gl Normal MCHC 32.0 LAB L100.1810 11.6-14.6 % High RDW CV 19.5 LAB L100.1820 35.1-43.9 fl High RDW SD 71.3 LAB L100.1900 150-450 K/mm3 Normal PLT 224 LAB L100.2000 6.2-12.0 fl Normal MPV 9.6 LAB L100.2100 47-70 % High NEUT% 74.6 LAB L100.2200 19-41 % Low LY% 14.8 LAB L100.2300 0-10 % Normal MONO% 9.1 LAB L100.2400 0-5 % Normal EO% 0.0 LAB L100.2500 0-1 % Normal BASO% 0.2 LAB L100.2550 0.0-0.9 % High IM GRAN % 1.300 Result Comment: IG% - Immature Granulocytes (promyelocytes, myelocytes and metamyelocytes) > 1% indicates that a LEFT SHIFT is Present. LAB L100.2620 2.0-7.7 X10 3/uL Absolute Neut High 8.5 LAB L100.2720 0.83-4.51 X10 3/ul Absolute Lymph Normal 1.68 LAB L100.5500 ADEQ PLT EST Normal ADEQUATE LAB L100.7300 ANISO Normal 1+ LAB L100.7500 POLYCHROMASIA Normal RARE LAB L100.7600 HYPOCHROMASIA Normal 1+ LAB L100.7800 MACROCYTE Normal 1+ Performed By: #### L100.0100 #### [facility] [address] [place], [address] COMPREHENSIVE METABOLIC Collected: 01/17/2018 Status: F Source: [facility] 9:20 AM [facility] REPOSITORY Order Comment: Reason for Laboratory Test Chemotherapy TYPE CODE TESTS RESULT OUT OF RANGE REFERENCE UNITS LAB L501.0100 74-106 mg/dL High GLU 131 Result Comment: Fasting Glucose result greater than or equal to 126 mg/dL suggests DIABETES MELLITUS per A.D.A. criteria. Please note revised GLUCOSE reference range effective 2017. LAB L501.1000 7-18 mg/dL Low BUN 5 LAB L501.1100 0.55-1.02 mg/dL Normal CREAT,SERUM 0.66 Result Comment: The validity of the calculated GFR AND GFRAA in patients over 70 years has not been determined. Clinical correlation is essential. LAB L501.1110 >60 mL/min Normal EST GFR 100 Result Comment: Non- GFR Calc LAB L501.1115 >60 mL/min Normal EST GFR - AA 121 Result Comment: GFR Calc LAB L501.1255 ml/min Normal Estimated CRCL 80.65 LAB L501.1300 10-20 RATIO Low BUN/CRE 7.5 LAB L501.1500 6.4-8. g/dL Normal 2 T PROT 6.9 LAB L501.1800 3.2-5. g/dL Normal 0 ALB 3.5 LAB L501.1950 2.2-4. g/dL Normal 2 GLOB 3.4 LAB L501.2000 0.9-2. RATIO Normal 4 A/G 1.0 LAB L501.2200 8.5-10 mg/dL Normal .1 CA 8.5 LAB L501.4100 15-37 U/L Low AST 12 LAB L501.4305 45-117 U/L High ALK P 156 LAB L501.4405 13-56 U/L Normal ALT 17 LAB L501.4600 0.20-1 mg/dL Normal .00 T BILI 0.30 LAB L501.5300 136-14 mmol/L Normal 5 NA 140 LAB L501.5600 3.5-5. mmol/L Normal 1 K 3.6 LAB L501.5900 98-107 mmol/L High CL 108 LAB L501.6100 21.0-3 mmol/L Normal 2.0 CO2 23.0 LAB L501.6200 5-15 Normal GAP 9 Performed By: #### L500.4050 #### [facility] [address] [place], [place], [address] IRON+IRON BINDING Collected: 12/27/2017 Status: F Source: [facility] 12:48 PM [facility] REPOSITORY Order Comment: Reason for Laboratory Test . TYPE CODE TESTS RESULT OUT OF RANGE REFERENCE UNITS LAB L503.6075 250-450 ug/dL TIBC Normal 280 LAB L503.6150 50-170 ug/dL IRON Normal 157 LAB L503.6250 15.0-55.0 % High IRON SATURATION 56.1 Performed By: #### L503.6030, L503.8959 #### [facility] [address] [place], [place], [address] FERRITIN Collected: 12/27/2017 Status: F Source: SECOR 12:48 PM [facility] REPOSITORY Order Comment: Reason for Laboratory Test . TYPE CODE TESTS RESULT OUT OF REFERENCE UNITS RANGE LAB L503.6550 8-252 ng/mL High FERRITIN 648 Performed By: #### L503.6030, L503.6550 #### [facility] [address] [place], [address] VITAMIN B12 Collected: 12/27/2017 Status: F Source: SECOR 12:48 PM [facility] REPOSITORY Order Comment: Reason for Laboratory Test . TYPE CODE TESTS RESULT OUT OF REFERENCE UNITS RANGE LAB L503.0105 211-911 pg/mL High Vitamin B12 1272 Performed By: #### L503.0105 #### [facility] [address] [place], [address] ONCOLOGY VISIT REPORT Observed: 12/27/2017 Status: F Source: SECOR 10:53 AM [facility] REPOSITORY [facility] [address] [place] [address] OFFICE VISIT Date of Service: 12/27/17 0838 MR#: [id number] Acct: [id number] Name: LINDSAY ANTUNEZ Rep #: [id number] : 1965 From: Carolina Pak MD Age/Sex: 52/F Location: ONC Status: Signed - Problem List (1) Primary cancer of left female breast Status: Chronic (2) Regional lymph node metastasis present Status: Chronic (3) Bone metastases Status: Chronic (4) Brain metastases Status: Chronic (5) Anemia Status: Chronic - Date of Service Date of Service:: 12/27/17 - Chief Complaint Breast cancer on treatment - History of Present Illness Patient is a 52-year-old female perimenopausal who never had screening mammographies and became aware of a painless lump in the left breast and a second lump in the left axilla in August 2017. She did not seek any medical care until October 09, 2017 when she developed chest pain and dyspnea. She was seen in [facility] emergency room, diagnosed and treated for pneumonia and referred to surgical consultation when the breast mass was noted on exam. Mammography and ultrasound examination confirmed the palpable abnormalities. On October 12, 2017 she underwent biopsies from the left breast mass and the left axilla that confirmed an invasive lobular carcinoma nuclear grade 3 ER negative, DC negative, HER-2 overexpressed 3+. On October [address] scan of the chest that showed emphysematous changes and diffuse bony lytic lesions throughout the thoracic and lumbar vertebrae and lower cervical segments, lytic lesions in humeral heads bilaterally, sternum, clavicles, left scapula and several ribs bilaterally. CT scan of the abdomen and pelvis showed an indeterminate lesion too small to characterize in the liver but no other visceral disease, widespread bony metastatic disease was again noted. A bone scan October 2017 initial staging showed diffuse skeletal metastatic disease. A bone biopsy October 27, 2017 confirmed metastatic cancer of breast origin. Brain MRI showed small multiple metastatic lesions one in the posterior right internal capsule, multiple bilateral small cerebellar metastases. CA 27-29 not elevated at diagnosis and therefore will not aid in follow-up. Her family history is notable for 2 maternal aunts with breast cancers but no first-degree relatives was breast cancer Treatment: focal radiation therapy to the sites of disease in the [place] [facility] at [facility] [facility]2017 Lmihusafis-Jkpllncozof-Tuwwohmv 11/29/2017- - Past Medical/Social History Past Medical History Past Medical History: Pneumonia Cancer: Breast cancer Other Cancer History: Radiation to brain Social History Social History: No changes Smoking Status Former smoker Review of Systems Constitutional:: Reports: Weakness, Fatigue - Better after blood transfusion. Denies: Fever, Sweats, Weight loss, Appetite change, Chills Cardiovascular:: Reports: Dyspnea on exertion - Improved after blood transfusion. Denies: Chest pain, Palpitations, Orthopnea, PND, Shortness of breath Respiratory: Reports: Shortness of breath upon exertion. Denies: Cough, Hemoptysis, Shortness of Breath, Wheezing Gastrointestinal:: Reports: Constipation, Hematochezia - Infrequent minor red blood stain on toilet paper chronic, Reflux - Taking as needed Prilosec. Denies: Abdominal pain, Nausea, Vomiting, Diarrhea Genitourinary: Denies: Dysuria, Hematuria, 15, Flank pain Musculoskeletal:: Reports: Back pain, - - And other bony pains are less, Took herself off Duragesic patches and uses [place] only as needed. Denies: Myalgia, Arthralgia Skin: Denies: Rash, Skin Changes, Wounds Neurological:: Denies: Headache, Dizziness, Visual changes, Tinnitus, Hearing loss Psychiatric: Denies: Anxiety, Depression, Homicidal Ideations, Suicidal Ideations Vital Signs Height 5 ft 2 in Weight: 58.06 kg Weight in Pounds 128.0 lbs - Physical Exam General: Alert, Oriented x3, No apparent distress, - - Cushingoid ECOG 1-2 HEENT: Atraumatic, PERRLA, EOMI, Normocephalic, - Oropharynx:: Dry mucosa, - - No thrush Neck:: Supple, Trachea midline, - - Port okay. Negative for: JVD, bilateral Cardiac:: Regular rate, Regular rhythm, Normal S1, Normal S2. Negative for: Murmur Lungs: Clear to auscultation, Excusion symmetrical. Negative for: Rhonchi, Wheezes Abdomen:: Bowel sounds x 4, Soft, Non-tender, Non-distended. Negative for: Hepatosplenomegaly Extremities:: Negative for: Cyanosis, Edema Neurological: Neuro grossly intact Skin:: Negative for: Lesions, Rash, Petechiae, Ecchymosis Psychiatric:: Appropriate affect, Euthymic Lymphatics:: Negative for: Cervical lymphadenopathy, Supraclavicular lymphadenopathy, Axillary lymphadenopathy Assessment and Plan 52-year-old female, perimenopausal with stage IV invasive lobular carcinoma of the left breast (T2, N3, M1) with metastases to left axillary, left supraclavicular and left cervical lymph nodes in addition to widespread metastatic disease to bone , an indeterminate lesion in the liver too small to characterize, and multiple bilateral low- volume brain metastases without visible edema. Disease is ER negative, DC negative, HER-2 overexpressed. Echocardiography showed adequacy of cardiac function with an ejection fraction 65%. Comorbid conditions COPD, active smoker, poor dentition. Plan; #1 Concluded focal brain radiation for metastatic disease in the [facility] at [facility] 10/2017. #2 She has extensive widespread bony metastatic disease, that in the spine does not impinge on the spinal cord at presentation #3 Pain management consulted to optimize pain control. #4 Systemic therapy, first line treatment this combination of Pertuzumab, trastuzumab and Taxotere given every 3 weeks supported with antiemetics, steroids and primary prophylaxis with Neulasta (patient has extensive metastatic disease involving bones and bone marrow with comorbid COPD making her a higher risk than average for febrile neutropenic sepsis. Plan is for 6-12 cycles of combination therapy depending on response followed by maintenance on Herceptin plus or minus pertuzumab depending on response and tolerance of treatment. #5 Bisphosphonate therapy for metastatic bone disease. #6 Anemia improved after blood transfusion partly due to bone marrow suppression by systemic chemotherapy however other pathology need to be excluded including iron deficiency and B12 deficiency. If iron deficiency is confirmed GI evaluation may be warranted (chronic GERD and occasional minor DC bleed noted on toilet paper presumed hemorrhoidal) Patient was seen with her , impression and plan discussed. Medications: Prescriptions This Visit Medication Instructions Recorded Dexamethasone 4 mg PO BID #30 tab 10/19/17 Lidocaine/Prilocaine 30 gm TP DAILY PRN PRN #1 cream..g. 10/19/17 Medications Added to Medication List This Visit 0.9% Normal Saline Med 12/27/17 00:00 Active Primary Care Provider: No Primary Care Phys Referring Provider: Carolina Pak MD 12/27/17 1053 <Electronically signed by Carolina Pak MD> Date Carolina Pak MD Cosigner Signature: Date (if applicable) CC: CBC W/DIFF, AUTOMATED Collected: 12/27/2017 Status: C Source: [place] 8:49 AM [facility] REPOSITORY TYPE CODE TESTS RESULT OUT OF REFERENCE UNITS RANGE LAB L100.1000 4.4-11.0 K/mm3 WBC High 15.1 LAB L100.1200 4.2-5.4 M/mm3 Low RBC 2.76 LAB L100.1300 12.0-15.0 g/dl Low HGB 8.9 LAB L100.1400 37-47 % Low HCT 27.9 LAB L100.1500 81-99 fL MCV High 101.1 LAB L100.1600 27.0-32.0 pg MCH High 32.2 LAB L100.1700 32-36 g/gl Low MCHC 31.9 LAB L100.1810 11.6-14.6 % RDW CV High 19.0 LAB L100.1820 35.1-43.9 fl RDW SD High 64.3 LAB L100.1900 150-450 K/mm3 PLT Normal 243 LAB L100.2000 6.2-12.0 fl MPV Normal 9.2 LAB L100.3100 MANUAL DIFF CELLS COUNTED Normal 100 LAB L100.3200 47-70 % SEGS High 87 LAB L100.3400 0-1 % META High 2 LAB L100.3800 19-41 % Low LYMPH 4 LAB L100.3900 0-10 % MONOCYTE Normal 6 LAB L100.4000 0-5 % EOS Normal 1 LAB L100.5500 ADEQ PLT EST Normal ADEQUATE LAB L100.7600 HYPOCHROMASIA Normal 2+ LAB L100.7800 MACROCYTE Normal 1+ LAB L100.2620 2.0-7.7 X10 3/uL Absolute Neut High 13.2 LAB L100.2720 0.83-4.51 X10 3/ul Low Absolute Lymph 0.60 LAB L100.9900 PATH REV Normal Reviewed Result Comment: Neutrophilic leukocytosis with slight left shift. Macrocytic anemia. Clinical correlation suggested. Wiley Gibbons D.O. 12/28/17 AMENDED REPORT 12/28/17 1143 PATH REV previously reported as: January Performed By: #### L100.0100 #### [facility] [address] [place], [address] COMPREHENSIVE METABOLIC Collected: 12/27/2017 Status: F Source: [facility] 8:49 AM [facility] REPOSITORY Order Comment: Reason for Laboratory Test Chemotherapy TYPE CODE TESTS RESULT OUT OF RANGE REFERENCE UNITS LAB L501.0100 74-106 mg/dL High GLU 127 Result Comment: Fasting Glucose result greater than or equal to 126 mg/dL suggests DIABETES MELLITUS per A.D.A. criteria. Please note revised GLUCOSE reference range effective 2017. LAB L501.1000 7-18 mg/dL Normal BUN 7 LAB L501.1100 0.55-1.02 mg/dL Normal CREAT,SERUM 0.64 Result Comment: The validity of the calculated GFR AND GFRAA in patients over 70 years has not been determined. Clinical correlation is essential. LAB L501.1110 >60 mL/min Normal EST GFR 104 Result Comment: Non- GFR Calc LAB L501.1115 >60 mL/min Normal EST GFR - AA 126 Result Comment: GFR Calc LAB L501.1255 ml/min Normal Estimated CRCL 83.17 LAB L501.1300 10-20 RATIO Normal BUN/CRE 10.9 LAB L501.1500 6.4-8. g/dL Normal 2 T PROT 6.5 LAB L501.1800 3.2-5. g/dL Low 0 ALB 3.1 LAB L501.1950 2.2-4. g/dL Normal 2 GLOB 3.4 LAB L501.2000 0.9-2. RATIO Normal 4 A/G 0.9 LAB L501.2200 8.5-10 mg/dL Normal .1 CA 8.6 LAB L501.4100 15-37 U/L Normal AST 20 LAB L501.4305 45-117 U/L High ALK P 314 LAB L501.4405 13-56 U/L Normal ALT 31 Result Comment: Please note revised ALT reference range effective 2017. LAB L501.4600 0.20-1.00 mg/dL Normal T BILI 0.20 LAB L501.5300 136-145 mmol/L Normal NA 140 LAB L501.5600 3.5-5.1 mmol/L Normal K 3.9 LAB L501.5900 98-107 mmol/L Normal CL 107 LAB L501.6100 21.0-32.0 mmol/L Normal CO2 24.0 LAB L501.6200 5-15 Normal GAP 9 Performed By: #### L500.4050 #### [facility] [address] [place], [address] ONCOLOGY VISIT REPORT Observed: 12/20/2017 Status: F Source: SECOR 12:55 PM [facility] REPOSITORY [facility] [address] [place] [address] OFFICE VISIT Date of Service: 12/20/17922 MR#: [id number] Acct: [id number] Name: LINDSAY ANTUNEZ Rep #: [id number] : 1965 From: Mar SANTA Age/Sex: 52/F Location: OMD Status: Signed Subjective - Date of Service Date of Service:: 12/20/17 - Chief Complaint Breast cancer on treatment - History of Present Illness Patient is a 52-year-old female perimenopausal who never had screening mammographies and became aware of a painless lump in the left breast and a second lump in the left axilla in August 2017. She did not seek any medical care until October 09, 2017 when she developed chest pain and dyspnea. She was seen in [facility] emergency room, diagnosed and treated for pneumonia and referred to surgical consultation when the breast mass was noted on exam. Mammography and ultrasound examination confirmed the palpable abnormalities. On October 12, 2017 she underwent biopsies from the left breast mass and the left axilla that confirmed an invasive lobular carcinoma nuclear grade 3 ER negative, DC negative, HER-2 overexpressed 3+. On October [address] scan of the chest that showed emphysematous changes and diffuse bony lytic lesions throughout the thoracic and lumbar vertebrae and lower cervical segments, lytic lesions in humeral heads bilaterally, sternum, clavicles, left scapula and several ribs bilaterally. CT scan of the abdomen and pelvis showed an indeterminate lesion too small to characterize in the liver but no other visceral disease, widespread bony metastatic disease was again noted. A bone scan October 2017 initial staging showed diffuse skeletal metastatic disease. A bone biopsy October 27, 2017 confirmed metastatic cancer of breast origin. Brain MRI showed small multiple metastatic lesions one in the posterior right internal capsule, multiple bilateral small cerebellar metastases. CA 27-29 not elevated at diagnosis and therefore will not aid in follow-up. Her family history is notable for 2 maternal aunts with breast cancers but no first-degree relatives was breast cancer Treatment: focal radiation therapy to the sites of disease in the [facility] at [facility] 10/2017 Hrlbgndlir-Fndbcfwfgjo-Xwczzorn start 11/29/2017 - Interval History The patient is presenting to clinic accompanied by spouse for an evaluation anticipating she will receive cycle 2 Taxotere/Herceptin/Perjeta. Concerns today include pruritic rash and fatigue. Reports pruritic rash began bilateral lower extremities approximately 10 days ago evolved to involve trunk and upper extremities. Patient has been utilizing p.o. Benadryl only at at bedtime with minimal relief. She believes slightly improved in terms of severity of itching and amount of erythema. Describes fatigue as moderate to severe accompanied by exertional dyspnea and weakness. Admits to occasional intermittent nausea well controlled with Compazine at the present time. Specifically denies fevers chills sweats chest pain and swelling or pain of her extremities. Describes appetite as good, p.o. fluid intake likely adequate. - Past Medical/Social History Past Medical History Past Medical History: Pneumonia Cancer: Breast cancer Other Cancer History: Radiation to brain Social History Social History: No changes Smoking Status Former smoker Review of Systems Constitutional:: Reports: Weakness, Fatigue. Denies: Fever, Sweats, Weight loss, Appetite change, Chills Cardiovascular:: Reports: Dyspnea on exertion. Denies: Chest pain, Palpitations, Orthopnea, PND Respiratory: Reports: Shortness of Breath. Denies: Cough, Hemoptysis, Wheezing Gastrointestinal:: Reports: Nausea - See HPI. Denies: Abdominal pain, Vomiting, Diarrhea, Constipation, Hematochezia Genitourinary: Denies: Dysuria, Hematuria, 15, Flank pain Musculoskeletal:: Reports: Backache - Associated with Neulasta resolved. Denies: Back pain, Myalgia, Arthralgia Skin: Denies: Rash, Skin Changes, Wounds Neurological:: Denies: Headache, Dizziness, Numbness, Tingling, Visual changes, Tinnitus, Hearing loss Psychiatric: Denies: Anxiety, Depression, Homicidal Ideations, Suicidal Ideations Vital Signs Height 5 ft 2 in Weight: 128 lb Weight in Pounds 128.0 lbs BMI 22.3 Pulse Ox 98 - Physical Exam General: Alert, Oriented x3, No apparent distress HEENT: Atraumatic, Normocephalic, - - Alopecia Oropharynx:: Negative for: Dry mucosa, Ulcerated lesions Neck:: Supple, Trachea midline. Negative for: JVD, bilateral Cardiac:: Regular rate, Regular rhythm, Normal S1, Normal S2. Negative for: Murmur Lungs: Diminished, Excusion symmetrical. Negative for: Rhonchi, Wheezes, Increased respiratory effort Abdomen:: Bowel sounds x 4, Soft, Non-tender, Non-distended. Negative for: Hepatosplenomegaly Extremities:: Negative for: Cyanosis, Edema Neurological: Neuro grossly intact Skin:: Rash. Negative for: Lesions, Petechiae, Ecchymosis Psychiatric:: Appropriate affect, Euthymic Lymphatics:: Negative for: Cervical lymphadenopathy, Supraclavicular lymphadenopathy, Axillary lymphadenopathy Laboratory Data: Laboratory Tests WBC 14.5 H (4.4-11.0) K/mm3 Assessment and Plan 52-year-old female, perimenopausal with stage IV invasive lobular carcinoma of the left breast (T2, N3, M1) with metastases to left axillary, left supraclavicular and left cervical lymph nodes in addition to widespread metastatic disease to bone , an indeterminate lesion in the liver too small to characterize, and multiple bilateral low- volume brain metastases without visible edema. Disease is ER negative, DC negative, HER-2 overexpressed. Echocardiography showed adequacy of cardiac function with an ejection fraction 65%. Comorbid conditions COPD, active smoker, poor dentition. Plan; #1 Concluded focal brain radiation for metastatic disease in the [facility] at [facility] 10/2017. #2 She has extensive widespread bony metastatic disease, that in the spine does not impinge on the spinal cord at presentation #3 Pain management consulted to optimize pain control, seen. Pain well-controlled on current medications at the present time. #4 Central venous access for systemic therapy obtained . #5 Continue weaning off Decadron after brain radiation. #6 Oral nystatin for thrush till weaned off steroids #7 Systemic therapy, I reviewed the most recent NCCN guidelines and preferred first line treatment this combination of Pertuzumab, trastuzumab and Taxotere given every 3 weeks supported with antiemetics, steroids and primary prophylaxis with Neulasta (patient has extensive metastatic disease involving bones and bone marrow with comorbid COPD making her a higher risk than average for febrile neutropenic sepsis. Plan is for 6-12 cycles of combination therapy depending on response followed by maintenance on Herceptin plus or minus pertuzumab depending on response and tolerance of treatment. #8 Bisphosphonate therapy for metastatic bone disease, patient to complete dental work and clearance prior. Plan to start with cycle 2 of chemotherapy. #9 Pruritic rash-likely associated with administration of taxane therapy. Recommended she take diphenhydramine [id number] with continued use of H2 luanne. Given the extent of widespread rash induration will refer to dermatology Dr. Mclaughlin for an acute new patient visit. Chemotherapy held due to rash. #10 Anemia as evidenced by hemoglobin of 6. She is not endorsing any overt blood loss inclusive of melena hematochezia. Presumably associated with chemotherapy-induced myelosuppression. Symptomatic by way of exertional dyspnea and severe fatigue. Patient will be supported with 2 units PRBCs. And chemotherapy held. Return to clinic in 1 week for consideration of cycle 2 Taxotere, Herceptin, Perjeta (patient educated Herceptin and Perjeta will not require re-loading doses if administered within 7 day window) Patient was in agreement with aforementioned plan. Mar Medrano MSN, REGIONAL ENVIRONMENTAL MANAGER-C, AOCNP Medications: Prescriptions This Visit Medication Instructions Recorded Primary Care Provider: No Primary Care Phys Referring Provider: Carolina Pak MD - Problem List (1) Primary cancer of left female breast Status: Acute (2) Bone metastases Status: Acute (3) Cancer related pain Status: Acute (4) Brain metastases Status: Chronic (5) Rash Status: Acute (6) Antineoplastic chemotherapy induced anemia Status: Acute (7) Chemotherapy management, encounter for Status: Acute 12/20/17 1255 <Electronically signed by Mar SANTA> Date Mar SANTA Cosigner Signature: Date (if applicable) CC: TYPE AND SCREEN Collected: 12/20/2017 Status: F Source: [facility] 10:05 AM [facility] REPOSITORY Order Comment: CMV NEG?* N Give When? Today Irradiated? N Leukodepleted? Y Reason for Type AND Screen/Red Cells: ANEMIA TYPE CODE TESTS RESULT OUT OF RANGE REFERENCE UNITS LAB B10.0800 A Normal BLOOD TYPE GEL POSITIVE LAB B100.4000 Normal Antibody NEGATIVE Screen Performed By: #### B101.7450 #### [facility] [address] [place], [address] Collected: 12/20/2017 Status: F Source: SECOR 10:05 [facility] REPOSITORY TYPE CODE TESTS RESULT OUT OF REFERENCE UNITS RANGE LAB U100.0000 [id number] TRANSFUSED PRODUCT: T AND S with Crossmatch, Red Cells COUNT: 2 Performed By: #### U100.0000 #### [facility] - refer to report for specific site COMPREHENSIVE METABOLIC Collected: 12/20/2017 Status: F Source: [place] [place] 8:24 AM [facility] REPOSITORY Order Comment: Reason for Laboratory Test Chemotherapy TYPE CODE TESTS RESULT OUT OF RANGE REFERENCE UNITS LAB L501.0100 74-106 mg/dL High GLU 175 Result Comment: Fasting Glucose result greater than or equal to 126 mg/dL suggests DIABETES MELLITUS per A.D.A. criteria. Please note revised GLUCOSE reference range effective 2017. LAB L501.1000 7-18 mg/dL Normal BUN 7 LAB L501.1100 0.55-1.02 mg/dL Normal CREAT,SERUM 0.77 Result Comment: The validity of the calculated GFR AND GFRAA in patients over 70 years has not been determined. Clinical correlation is essential. LAB L501.1110 >60 mL/min Normal EST GFR 84 Result Comment: Non- GFR Calc LAB L501.1115 >60 mL/min Normal EST GFR - AA 102 Result Comment: GFR Calc LAB L501.1255 ml/min Normal Estimated CRCL 69.13 LAB L501.1300 10-20 RATIO Low BUN/CRE 9.1 LAB L501.1500 6.4-8. g/dL Normal 2 T PROT 6.4 LAB L501.1800 3.2-5. g/dL Low 0 ALB 2.8 LAB L501.1950 2.2-4. g/dL Normal 2 GLOB 3.6 LAB L501.2000 0.9-2. RATIO Low 4 A/G 0.8 LAB L501.2200 8.5-10 mg/dL Low .1 CA 8.0 LAB L501.4100 15-37 U/L Low AST 14 LAB L501.4305 45-117 U/L High ALK P 342 LAB L501.4405 13-56 U/L Normal ALT 22 Result Comment: Please note revised ALT reference range effective 2017. LAB L501.4600 0.20-1.00 mg/dL Normal T BILI 0.30 LAB L501.5300 136-145 mmol/L Normal NA 139 LAB L501.5600 3.5-5.1 mmol/L Normal K 3.8 LAB L501.5900 98-107 mmol/L Normal CL 107 LAB L501.6100 21.0-32.0 mmol/L Normal CO2 22.0 LAB L501.6200 5-15 Normal GAP 10 Performed By: #### L500.4050 #### [facility] [address] [place], [address] CBC W/DIFF, AUTOMATED Collected: 12/20/2017 Status: C Source: [place] 8:24 AM [facility] REPOSITORY TYPE CODE TESTS RESULT OUT OF RANGE REFERENCE UNITS LAB L100.1000 4.4-11.0 K/mm3 High WBC 14.5 LAB L100.1200 4.2-5.4 M/mm3 Low RBC 1.96 LAB L100.1300 12.0-15.0 g/dl Low HGB 6.0 LAB L100.1400 37-47 % Low HCT 19.0 LAB L100.1500 81-99 fL Normal MCV 96.9 LAB L100.1600 27.0-32.0 pg Normal MCH 30.6 LAB L100.1700 32-36 g/gl Low MCHC 31.6 LAB L100.1810 11.6-14.6 % High RDW CV 19.8 LAB L100.1820 35.1-43.9 fl High RDW SD 66.2 LAB L100.1900 150-450 K/mm3 Normal PLT 157 LAB L100.2000 6.2-12.0 fl Normal MPV 9.7 LAB L100.3100 MANUAL DIFF Normal CELLS COUNTED 100 LAB L100.3200 47-70 % High 83 SEGS LAB L100.3400 0-1 % 1 Normal META LAB L100.3500 0-0 High 1 MYELO LAB L100.3800 19-41 % Low 12 LYMPH LAB L100.3900 0-10 % 2 Normal MONOCYTE LAB L100.4100 0-1 % 1 Normal BASOPHIL LAB L100.5500 ADEQ Normal PLT EST ADEQUATE LAB L100.7000 NORM C AND C NORMAL N Normal RED CELL MORPH CHROM LAB L100.7300 1+ Normal ANISO LAB L100.2620 2.0-7.7 X10 3/uL High Absolute Neut 12.0 LAB L100.2720 0.83-4.51 X10 3/ul Normal Absolute Lymph 1.74 LAB L100.9900 Normal PATH REV Reviewed Result Comment: Neutrophilic leukocytosis with left shift. Severe normacytic anemia NRBC's noted Clinical correlation necessary. Chalo Chappell M.D. 12/22/17 Pathologist comment added AMENDED REPORT 12/22/17 0369 PATH REV previously reported as: Beth rohdes Performed By: #### L100.0100, L100.4425 #### [facility] [address] [place], [place], [address] NRBC PANEL Collected: 12/20/2017 Status: F Source: [facility] 8:24 AM [facility] REPOSITORY TYPE CODE TESTS RESULT OUT OF RANGE REFERENCE UNITS LAB L100.4450 0-5 % Normal NRBC, FLAGGED 3.8 LAB L100.4455 0-5 10 3/uL Normal NRBC # 0.56 Performed By: #### L100.0100, L100.4425 #### [facility] [address] [place], [place], [address] CBC W/DIFF, AUTOMATED Collected: 11/27/2017 Status: C Source: [facility] 8:39 AM [facility] REPOSITORY Order Comment: Reason for Laboratory Test PRE-CHEMO TYPE CODE TESTS RESULT OUT OF RANGE REFERENCE UNITS LAB L100.1000 4.4-11.0 K/mm3 Low WBC 4.2 LAB L100.1200 4.2-5.4 M/mm3 Low RBC 3.16 LAB L100.1300 12.0-15.0 g/dl Low HGB 9.5 LAB L100.1400 37-47 % Low HCT 30.0 LAB L100.1500 81-99 fL Normal MCV 94.9 LAB L100.1600 27.0-32.0 pg Normal MCH 30.1 LAB L100.1700 32-36 g/gl Low MCHC 31.7 LAB L100.1810 11.6-14.6 % High RDW CV 17.5 LAB L100.1820 35.1-43.9 fl High RDW SD 53.7 LAB L100.1900 150-450 K/mm3 Low PLT 134 LAB L100.2000 6.2-12.0 fl Normal MPV 9.3 LAB L100.3100 MANUAL DIFF Normal CELLS COUNTED 100 LAB L100.3200 47-70 % Low 40 SEGS LAB L100.3400 0-1 % High 2 META LAB L100.3500 0-0 High 3 MYELO LAB L100.3600 0-0 High 2 PROMYELO LAB L100.3800 19-41 % High 44 LYMPH LAB L100.3900 0-10 % 6 Normal MONOCYTE LAB L100.4000 0-5 % 3 Normal EOS LAB L100.5500 ADEQ Normal PLT EST SLT DEC LAB L100.7000 NORM C AND C NORMAL Normal RED CELL MORPH NORM C+C LAB L100.2620 2.0-7.7 X10 3/uL Low Absolute Neut 1.7 LAB L100.2720 0.83-4.51 X10 3/ul Normal Absolute Lymph 1.85 LAB L100.9900 Normal PATH REV Reviewed Result Comment: Neutrophilic left shift. Normocytic anemia. Clinical correlation necessary. Chalo Chappell M.D. 11/28/17 AMENDED REPORT 11/28/17 1341 PATH REV previously reported as: January carmelo Performed By: #### L100.0100, L500.4050 #### [facility] [address] [place], [address] COMPREHENSIVE METABOLIC Collected: 11/27/2017 Status: F Source: [facility] 8:39 AM [facility] REPOSITORY Order Comment: Reason for Laboratory Test PRE-CHEMO TYPE CODE TESTS RESULT OUT OF RANGE REFERENCE UNITS LAB L501.0100 74-106 mg/dL Normal GLU 89 Result Comment: Please note revised GLUCOSE reference range effective 2017. LAB L501.1000 7-18 mg/dL Normal BUN 12 LAB L501.1100 0.55-1.02 mg/dL Normal CREAT,SERUM 0.68 Result Comment: The validity of the calculated GFR AND GFRAA in patients over 70 years has not been determined. Clinical correlation is essential. LAB L501.1110 >60 mL/min Normal EST GFR 97 Result Comment: Non- GFR Calc LAB L501.1115 >60 mL/min Normal EST GFR - AA 117 Result Comment: GFR Calc LAB L501.1255 ml/min Normal Estimated CRCL 78.28 LAB L501.1300 10-20 RATIO Normal BUN/CRE 17.6 LAB L501.1500 6.4-8. g/dL Low 2 T PROT 6.2 LAB L501.1800 3.2-5. g/dL Low 0 ALB 2.7 LAB L501.1950 2.2-4. g/dL Normal 2 GLOB 3.5 LAB L501.2000 0.9-2. RATIO Low 4 A/G 0.8 LAB L501.2200 8.5-10 mg/dL Normal .1 CA 8.8 LAB L501.4100 15-37 U/L High AST 77 LAB L501.4305 45-117 U/L High ALK P 201 LAB L501.4405 13-56 U/L High ALT 222 Result Comment: Please note revised ALT reference range effective 2017. LAB L501.4600 0.20-1.00 mg/dL Normal T BILI 0.30 LAB L501.5300 136-145 mmol/L Normal NA 145 LAB L501.5600 3.5-5.1 mmol/L Normal K 3.9 LAB L501.5900 98-107 mmol/L High CL 109 LAB L501.6100 21.0-32.0 mmol/L Normal CO2 27.0 LAB L501.6200 5-15 Normal GAP 9 Performed By: #### L100.0100, L500.4050 #### [facility] [address] [place], [address] XR CHEST 2V FRONTAL/LAT Observed: 11/24/2017 Status: F Source: [place] 10:52 AM [facility] REPOSITORY * * *Final Report* * * DATE OF EXAM: Nov 24 2017 10:52AM WOX 5291 - XR CHEST 2V FRONTAL/LAT / PROCEDURE REASON: multiple diagnoses * * * * Physician Interpretation * * * * EXAMINATION: CHEST RADIOGRAPH (2 VIEW FRONTAL and LATERAL) Clinical History: Cough Other chest pain MQ: XC2_4 Comparison: None RESULT: Lines, tubes, and devices: Right Mediport. Lungs and pleura: No consolidation. No lung mass. Minimal thickening of the fissures. Cardiomediastinal silhouette: Normal cardiomediastinal silhouette. IMPRESSION: Nonspecific minimal fissural thickening. Wheel Truer: MARK Transcribe Date/Time: Nov 24 2017 11:07A Dictated by : ROBERTO TROTTER MD This examination was interpreted and the report reviewed and electronically signed by: ROBERTO TROTTER MD on Nov 24 2017 11:09AM EST [id number] PROGRESS Observed: 11/24/2017 Status: COMPLETED Source: [place] 10:45 AM [facility] REPOSITORY HNO ID: [id number] Author: Rio Johnson (Rt) Service: (none) Author Type: Pattern Shop Supervisor Type: Progress Notes Filed: 11/24/2017 10:51 AM Note Text: Radiology Service Progress Note PATIENT NAME: Lindsay Antunez DATE OF SERVICE: November 24, 2017 TIME: 10:45 AM PATIENT IDENTITY VERIFICATION COMPLETED USING TWO (2) METHODS: Patient confirmed name verbally and Date of . PATIENT GENDER DATA: Female. status: : No status: NO. PATIENT RELEVANT IMPLANT DATA REVIEWED: Not Applicable RADIOLOGY DEPARTMENT: General X-ray: Exam(s) Completed: Chest X-Ray PERIPHERAL IV DATA: Not applicable SIGNED BY: RT Elizabeth November 24, 2017 10:45 AM PROGRESS Observed: 11/24/2017 Status: COMPLETED Source: [place] 10:25 AM [facility] REPOSITORY HNO ID: [id number] Author: Pretty Bang Service: (none) Author Type: Nurse Practitioner Type: Progress Notes Filed: 11/24/2017 11:25 AM Note Text: 11/24/2017 Patient presents with: Cough SUBJECTIVE: This is a 52 year old that is here today with her for chest tightness that started Monday with a cough that started 3 days ago (Monday). Cough is productive with green slimy and hard to get up. She states that she is being followed for breast CA stage [address] [facility] in [place], she called them this morning to discuss symptoms because she is planned to start chemo Monday and just completed radiation treatment. They suggested that she be seen today to rule out pneumonia. She is being treated for thrush with a swish and swallow. She has had a sore throat since that started. She has had some nasal congestion, no rhinorrhea. Denies fever, chills, flu like symptoms, CP, SOB. She states that she is moving slower than her norm, but this is her new norm since the cancer diagnosis. She drinks a lot of water and juice throughout the day. PAST MEDICAL HISTORY Diagnosis Date - Breast cancer, stage 4 (HCC) ALLERGIES Review of patient's allergies indicates no known allergies. MEDICATIONS Current Outpatient Prescriptions: albuterol HFA (PROVENTIL HFA, VENTOLIN HFA) 90 mcg/actuation inhaler Inhale 2 Puffs as instructed every 4 hours as needed for Wheezing/Shortness of Breath. With spacer please. No current facility-administered medications for this visit. Medications and allergies reviewed by this provider. SOCIAL HISTORY Social History Marital status: Spouse name: Years of education: Number of children: Social History Main Topics Smoking status: Former Smoker Packs/day: 0.50 Years: 10.00 Types: Cigarettes Smokeless status: Never Used Alcohol use: Yes Comment: rare REVIEW OF SYSTEMS see HPI OBJECTIVE: BP 126/88 (BP Site: Right Arm, BP Position: Sitting, BP Cuff Size: Regular Adult) Pulse 72 Resp 14 Wt 56.7 kg (125 lb). Vital signs reviewed by this provider. PHYSICAL EXAMINATION: General appearance: Well appearing, alert, in no acute distress, well-hydrated, well nourished. Head: Normocephalic, no masses, lesions, tenderness or abnormalities Eyes: Anicteric sclera. Pupils are equally round and reactive to light. Ears: External ears normal, canals clear, TMs normal Nose/Sinuses: Nares normal, septum midline, mucosa normal, no drainage or sinus tenderness Oropharynx: Positive findings: thrush to tongue, throat and cheek mucosa Neck: Supple, no adenopathy Lungs: Lungs clear to auscultation. No wheezing, rhonchi, rales Heart: RRR without murmur, gallop, or rubs. No ectopy Extremities: No deformities, edema, skin discoloration, clubbing or cyanosis. Good capillary refill. , Pulses: 2+ ASSESSMENT/PLAN: 1. Cough - ICD9: 786.2, ICD10: R05 (primary diagnosis) - would like to rule in or out PNA- STAT CXR - No PNA on CXR- likely viral - OK to try OTC mucinex, also gave recipe for pineapple cough syrup - increase fluids, rest, and humidification - XR CHEST 2V FRONTAL/LAT - follow up if no improvement or worsening symptoms. 2. Chest tightness - ICD9: 786.59, ICD10: R07.89 - see above - XR CHEST 2V FRONTAL/LAT - CXR showed nonspecific minimal fissural thickening. Discussed with Dr. Sr and she suggested CT and PFTs. Discussed this with the patient and and they would like to discuss this with the cancer specialists she is following with first. She is overwhelmed with all of treatment and is planning to schedule with PCP- Dr. Granados. She states that she will discuss this then or call if her specialists think that she needs the further testing. Pretty Bang CNP CNOV Observed: 11/24/2017 Status: COMPLETED Source: [place] 10:20 AM [facility] REPOSITORY Office Visit (FAMPWS) LINDSAY ANTUNEZ ([id number]) 1965 F Date Time Provider Department 11/24/17 10:20 AM PRETTY ABNG (DANIELA) FAMPWS During your visit today, we recorded the following information about you: Pulse Respiration Blood pressure Weight 72/minute 14/minute 126/88 56.7 kg Pretty Bang CNP 11/24/2017 11:25 AM Signed 11/24/2017 Patient presents with: Cough SUBJECTIVE: This is a 52 year old that is here today with her for chest tightness that started Monday with a cough that started 3 days ago (Monday). Cough is productive with green ANDquot;slimyANDquot; and hard to get up. She states that she is being followed for breast CA stage [address] [facility] in [place], she called them this morning to discuss symptoms because she is planned to start chemo Monday and just completed radiation treatment. They suggested that she be seen today to rule out pneumonia. She is being treated for thrush with a swish and swallow. She has had a sore throat since that started. She has had some nasal congestion, no rhinorrhea. Denies fever, chills, flu like symptoms, CP, SOB. She states that she is moving slower than her norm, but this is her new norm since the cancer diagnosis. She drinks a lot of water and juice throughout the day. PAST MEDICAL HISTORY Diagnosis Date - Breast cancer, stage 4 (HCC) ALLERGIES Review of patient's allergies indicates no known allergies. MEDICATIONS Current Outpatient Prescriptions: albuterol HFA (PROVENTIL HFA, VENTOLIN HFA) 90 mcg/actuation inhaler Inhale 2 Puffs as instructed every 4 hours as needed for Wheezing/Shortness of Breath. With spacer please. No current facility-administered medications for this visit. Medications and allergies reviewed by this provider. SOCIAL HISTORY Social History Marital status: Spouse name: Years of education: Number of children: Social History Main Topics Smoking status: Former Smoker Packs/day: 0.50 Years: 10.00 Types: Cigarettes Smokeless status: Never Used Alcohol use: Yes Comment: rare REVIEW OF SYSTEMS see HPI OBJECTIVE: BP 126/88 (BP Site: Right Arm, BP Position: Sitting, BP Cuff Size: Regular Adult) Pulse 72 Resp 14 Wt 56.7 kg (125 lb). Vital signs reviewed by this provider. PHYSICAL EXAMINATION: General appearance: Well appearing, alert, in no acute distress, well-hydrated, well nourished. Head: Normocephalic, no masses, lesions, tenderness or abnormalities Eyes: Anicteric sclera. Pupils are equally round and reactive to light. Ears: External ears normal, canals clear, TMs normal Nose/Sinuses: Nares normal, septum midline, mucosa normal, no drainage or sinus tenderness Oropharynx: Positive findings: thrush to tongue, throat and cheek mucosa Neck: Supple, no adenopathy Lungs: Lungs clear to auscultation. No wheezing, rhonchi, rales Heart: RRR without murmur, gallop, or rubs. No ectopy Extremities: No deformities, edema, skin discoloration, clubbing or cyanosis. Good capillary refill. , Pulses: 2+ ASSESSMENT/PLAN: 1. Cough - ICD9: 786.2, ICD10: R05 (primary diagnosis) - would like to rule in or out PNA- STAT CXR - No PNA on CXR- likely viral - OK to try OTC mucinex, also gave recipe for pineapple cough syrup - increase fluids, rest, and humidification - XR CHEST 2V FRONTAL/LAT - follow up if no improvement or worsening symptoms. 2. Chest tightness - ICD9: 786.59, ICD10: R07.89 - see above - XR CHEST 2V FRONTAL/LAT - CXR showed nonspecific minimal fissural thickening. Discussed with Dr. Sr and she suggested CT and PFTs. Discussed this with the patient and and they would like to discuss this with the cancer specialists she is following with first. She is overwhelmed with all of treatment and is planning to schedule with PCP- Dr. Granados. She states that she will discuss this then or call if her specialists think that she needs the further testing. DANIELA Zneg CNP 11/24/2017 10:53 AM Addendum Consider humidifier Continue to drink plenty of water OK to use OTC Mucinex Keep coughing stuff up if you can so it doesn't settle in the lungs, take deep breaths too All Natural DIY Pineapple Cough Syrup Yield: about a cup What You Will Need ? 2 thick slices of fresh pineapple, peel removed, but core intact (about two good cups) ? 1 Tbsp honey ? 1/2 tsp cayenne pepper (omit or reduce for children) ? a thumb sized piece of low (omit or reduce for children), peeled and sliced or rough chopped ? juice of 1 lemon Instructions 1) Give the pineapple a rough chop, including the core, which is not only edible but particularly healthy 2) Blend everything up in a spine specialist or food quality tester until smooth. 3) Use as is, or push the mixture through a mesh strainer to get a smoother syrup. 4) Keep in the refrigerator and take as needed. Note: Do not give anything with honey to children under 1 year old. If you have a persistent cough, seek medical attention. Recipe slightly adapted from [email or web address] Referring Provider: SELF [200] Allergies As of Date: 11/24/2017 (No Known Allergies) Date Reviewed: 11/24/2017 Reviewed by: Narciso Bardales Ma - Fully Assessed Reason for Visit: Cough [28] Primary Visit Diagnosis:Cough [R05] Other Visit Diagnosis:Chest tightness [R07.89] Order(s):XR CHEST 2V FRONTAL/LAT [3666009] Order #: [id number] FUTURE Prescriptions as of 11/24/2017 Sig: DEXAMETHASONE 4 MG TABLET TAKE 1 TAB TWICE A DAY FOR 5 * HYDROCODONE 5 MG-ACETAMINOPHE* TAKE 1 TABLET 3 TIMES A DAY B* NYSTATIN 100,000 UNIT/ML ORAL* SWISH AND SWALLOW 5 MILLILITERS* SENNOSIDES 8.6 MG TABLET Take 8.6 mg by mouth. DEXAMETHASONE 2 MG TABLET Take 2 mg by mouth. ALBUTEROL SULFATE HFA 90 MCG/* Inhale 2 Puffs as instructed * Medication notes this encounter DEXAMETHASONE 4 MG TABLET >> Narciso Bardales Ma 11/24/2017 11:03 AM >> NARCISO BARDALES MA MonNov 24, 2017 11:03 AM Received from: External Pharmacy HYDROCODONE 5 MG-ACETAMINOPHEN 325 MG TABLET >> Narciso Bardales Ma 11/24/2017 11:03 AM >> NARCISO BARDALES MA MonNov 24, 2017 11:03 AM Received from: External Pharmacy NYSTATIN 100,000 UNIT/ML ORAL SUSPENSION >> Narciso Bardales Ma 11/24/2017 11:03 AM >> NARCISO BARDALES MA MonNov 24, 2017 11:03 AM Received from: External Pharmacy SENNOSIDES 8.6 MG TABLET >> Narciso Bardales Ma 11/24/2017 11:04 AM >> NARCISO BARDALES MA MonNov 24, 2017 11:04 AM [facility] Received Sig: Take 8.6 mg by mouth daily. DEXAMETHASONE 2 MG TABLET >> Narciso Bardales Ma 11/24/2017 11:04 AM >> NARCISO BARDALES MA MonNov 24, 2017 11:04 AM [facility] Received Sig: Take 2 mg by mouth daily. Problem List As Of Date: 11/24/2017 (None) Other instructions from your clinician: Consider humidifier Continue to drink plenty of water OK to use OTC Mucinex Keep coughing stuff up if you can so it doesn't settle in the lungs, take deep breaths too All Natural DIY Pineapple Cough Syrup Yield: about a cup What You Will Need ? 2 thick slices of fresh pineapple, peel removed, but core intact (about two good cups) ? 1 Tbsp honey ? 1/2 tsp cayenne pepper (omit or reduce for children) ? a thumb sized piece of low (omit or reduce for children), peeled and sliced or rough chopped ? juice of 1 lemon Instructions 1) Give the pineapple a rough chop, including the core, which is not only edible but particularly healthy 2) Blend everything up in a spine specialist or food quality tester until smooth. 3) Use as is, or push the mixture through a mesh strainer to get a smoother syrup. 4) Keep in the refrigerator and take as needed. Note: Do not give anything with honey to children under 1 year old. If you have a persistent cough, seek medical attention. Recipe slightly adapted from [email or web address] Disposition: Return if symptoms worsen or fail to improve. Follow-up and Disposition History Recorded Encounter Status:Closed by PRETTY BANG on 11/24/17 MRI BRAIN WITH AND Observed: 11/07/2017 Status: F Source: [facility] WITHOUT CONTRAST 3:00 PM [facility] REPOSITORY EXAM: MRI BRAIN WITH AND WITHOUT CONTRAST, 11/03/2017 10:40 AM COMPARISON: MRI of the brain of October 20, 2017 is reviewed in [facility]. CLINICAL INDICATIONS: 52 years Female brain metastasis on thick slice MRI eval for new mets on voluemtric imaging; RELEVANT CLINICAL HISTORY: C79.31:Secondary malignant neoplasm of brain (HCC) Please perform 3D volumetric 3T MRI eval for number of mets; TECHNIQUE: A series of multisequence, multiplanar images of the brain are obtained both before and after intravenous administration of gadolinium-based contrast using standard protocol. Study was performed at [address]. CONTRAST: gadoterate Meglumine (DOTAREM) 5 MMOL/10ML injection 3-60 mL; Route of Administration: Intravenous; Dose: 11 mL. FINDINGS: Multiple contrast enhancing lesions are present within the bilateral supra and infratentorial brain, consistent with metastatic disease and unchanged from outside MRI of the brain of October 20, 2017. Street Roller Engineer lesions are measured as follows: Lesion within the subcortical white matter of the right frontal lobe on series 11 image 147 measures 5 x 5 mm. Lesion within the anterior left cerebellar hemisphere on series 11 image 75 measures 1.0 x 0.7 cm. Posteromedial right cerebellar hemisphere lesion on series 11 image 70 measures 0.6 x 0.6 cm. There is no significant adjacent edema, mass effect, or midline shift involving any of these lesions. Additionally, there is diffuse heterogeneity and contrast enhancement of the calvarium, skull base, and visualized portions of the cervical spine, which are consistent with osseous metastatic disease. No bulky extraosseous disease. No areas of restricted diffusion or evidence of acute ischemia are identified. No acute intracranial hemorrhage. Ventricles are normal in size and configuration for the patient's stated age. Basal cisterns are preserved. No evidence of dural venous sinus thrombosis. There has thickening and enhancement of the pituitary infundibulum, as well as heterogeneous enhancement of the pituitary gland. Paranasal sinuses and mastoid air cells are clear. Orbits are unremarkable. 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 IMPRESSION: Metastatic disease burden involving the involving supra and infratentorial compartments, including along infundibulum - as noted on recent outside hospital MR from October 20 2017 and annotated on series 102. There is also extensive osseous metastases through out visualized portions of the cervical spine, facial bones, skull base and calvarium, without bulky extraosseous disease. 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 I personally viewed and interpreted these images and I have reviewed and approved this report. *CRE/GFR POC DEVICE Collected: 11/03/2017 Status: F Source: [facility] 9:56 AM [facility] REPOSITORY TYPE CODE TESTS RESULT OUT OF REFERENCE UNITS RANGE LAB CREPC 0.50-1.20 mg/dL Creatinine (poc 0.89 device) LAB GFRPC >60 mL/min/1.7 3 sq m est GFR, (poc device) >60 BONE SCAN WHOLE Observed: 10/30/2017 Status: F Source: [place] 7:35 AM [facility] REPOSITORY [facility] Imaging Services [address] [place] [address] Bone Scan Whole Body MR#: [id number] Acct: [id number] Name: LINDSAY ANTUNEZ Rep #: [id number] : 1965 F 52 From: Juan Blount DO PCP: En Granados III, MD Status: REG CLI Study: Bone Scan Whole Body Date of Exam: 10/30/17 Exam# [id number] Ordering Dr: Carolina Pak MD CLINICAL: 52-year-old female with reported history of carcinoma of the breast. WHOLE BODY 99m Tc MDP RADIONUCLIDE BONE SCINTIGRAPHY COMPARISON: CT of the abdomen-pelvis report 10/25/2017, CT of the chest report 10/12/2017, MRI of the cervical, thoracic and lumbar spine reports 10/20/2017 FINDINGS: Following the intravenous administration of 20.2 mCi of 99m Tc MDP, whole body bone images reveal: 1. Multiple foci of increased radiopharmaceutical concentration are demonstrated in the visualized axial skeletal structures, too many to individually articulate to include multiple bilateral ribs, cervical, thoracic and lumbar vertebra, right-left scapula, the bilateral hemipelvis, sternum, as well as focally apparent in the right-left proximal humeral metaphyses, the right proximal-mid humeral diaphysis, the bilateral proximal femoral and distal femoral metaphyses, right-left middistal femoral diaphysis, the right proximal femoral diaphysis, the right proximal tibial metaphysis, the right frontal calvarium. 2. The remaining skeletal structures are scintigraphically unremarkable with normal-appearing renal images and urinary bladder activity identified. An increase in uptake is demonstrated in the bilateral maxillary most consistent with periodontal disease and/or periostitis. NM/Bone Scan Whole Body IMPRESSION: 1. The increase in radiopharmaceutical concentration identified in the appendicular and axial skeletal structures, right frontal calvarium is most consistent with diffuse skeletal metastatic disease. Electronically Signed: Juan Blount DO at 11:25 EST Tel , Service support , CC: En Granados III, MD; Carolina Pak MD Wheel Truer: Signed BONE MARROW ASPIRATON Collected: 10/27/2017 Status: F Source: [place] 10:30 AM [facility] REPOSITORY TYPE CODE TESTS RESULT OUT OF RANGE REFERENCE UNITS LAB L350.0900 SEE Normal BONE PATHOLOGY MARROW ASP REPORT Result Comment: Specimen submitted to Anatomical Pathology Department for testing. Performed By: #### L350.0900 #### [facility] [address] [place], [address] PROTHROMBIN TIME W/INR Collected: 10/27/2017 Status: F Source: [place] 9:30 AM [facility] REPOSITORY TYPE CODE TESTS RESULT OUT OF RANGE REFERENCE UNITS LAB L300.4150 11.7-14.9 SECONDS Normal PROTIME 13.4 LAB L300.4200 Normal INR 1.1 Performed By: #### L300.3900, L300.4310 #### [facility] [address] [place], [address] PARTIAL THROMBOPLAST Collected: 10/27/2017 Status: F Source: [place] TIME 9:30 AM [facility] REPOSITORY TYPE CODE TESTS RESULT OUT OF RANGE REFERENCE UNITS LAB L300.4310 24.1-36.2 Seconds Normal PTT 34.1 Performed By: #### L300.3900, L300.4310 #### [facility] [address] [place], [address] BIOPSY/INJ OR NEEDLE Observed: 10/27/2017 Status: F Source: [place] 9:10 AM [facility] REPOSITORY [facility] Imaging Services [address] [place] [address] Biopsy/Inj or Needle Placement MR#: [id number] Acct: [id number] Name: LINDSAY ANTUNEZ Rep #: [id number] : 1965 F 52 From: Edgar Flannery MD PCP: Care Physician, No Primary Status: REG CLI Study: Biopsy/Inj or Needle Placement Date of Exam: 10/27/17 Exam# [id number] Ordering Dr: Carolina Pak MD PROCEDURE: CT GUIDED BONE marrow biopsy. DATE: October 27, 2017. INDICATION: Female, 52 years old. Metastatic breast cancer. PHYSICIAN: Edgar Flannery M.D. RADIATION DOSAGE (If Supplied By Facility): CTDIvol = ( 15 ) mGy, DLP = ( 329.27 ) mGycm. Individualized dose optimization techniques were utilized. PROCEDURE: The risks, benefits, and alternatives to the procedure were explained to the patient. The specific risk of hemorrhage requiring further treatment or intervention was detailed and accepted. Follow-up instructions were discussed with the patient as well. Written informed consent was obtained. The patient was brought into the CT suite and placed in the supine position. . An appropriate entry site was identified. The overlying skin was prepped and draped in the usual sterile fashion. 1% lidocaine was administered subcutaneously for local anesthesia. Conscious sedation protocol was followed. The patient received 3 mg of Versed and 75 mcg of fentanyl intravenously. The patient was monitored by the department nurse. The constellation was started at 10:16 AM and terminated at 1038. Under CT guidance, a bone marrow biopsy of the anterior iliac bone was performed. The specimens were then placed in the appropriate fluid and transported to the laboratory for analysis. Hemostasis was obtained. The patient tolerated the procedure well without immediate complications. CT/Biopsy/Inj or Needle Placement IMPRESSION: Successful CT guided bone marrow biopsy of the anterior aspect of the right iliac crest., as described above. Electronically Signed: Edgar Flannery MD at 10:59 EST Tel [phone], Service support , CC: No Primary Care Physician; Carolina Pak MD Wheel Truer: Signed CBC W/DIFF, AUTOMATED Collected: 10/27/2017 Status: C Source: [place] 9:01 AM [facility] REPOSITORY TYPE CODE TESTS RESULT OUT OF RANGE REFERENCE UNITS LAB L100.1000 4.4-11.0 K/mm3 Normal WBC 9.4 LAB L100.1200 4.2-5.4 M/mm3 Normal RBC 4.39 LAB L100.1300 12.0-15.0 g/dl Normal HGB 13.0 LAB L100.1400 37-47 % Normal HCT 39.9 LAB L100.1500 81-99 fL Normal MCV 90.9 LAB L100.1600 27.0-32.0 pg Normal MCH 29.6 LAB L100.1700 32-36 g/gl Normal MCHC 32.6 LAB L100.1810 11.6-14.6 % Normal RDW CV 13.1 LAB L100.1820 35.1-43.9 fl Normal RDW SD 42.9 LAB L100.1900 150-450 K/mm3 Normal PLT 272 LAB L100.2000 6.2-12.0 fl Normal MPV 9.4 LAB L100.2100 47-70 % Normal NEUT% 62.7 LAB L100.2200 19-41 % Normal LY% 24.9 LAB L100.2300 0-10 % Normal MONO% 7.7 LAB L100.2400 0-5 % Normal EO% 1.7 LAB L100.2500 0-1 % Normal BASO% 0.4 LAB L100.2550 0.0-0.9 % High IM GRAN % 2.600 Result Comment: IG% - Immature Granulocytes (promyelocytes, myelocytes and metamyelocytes) > 1% indicates that a LEFT SHIFT is Present. LAB L100.2620 2.0-7.7 X10 3/uL Normal Absolute Neut 5.9 LAB L100.2720 0.83-4.51 X10 3/ul Normal Absolute Lymph 2.34 LAB L100.9900 Normal PATH REV Reviewed Result Comment: Neutrophilic left shift. Clinical correlation necessary. Chalo Chappell M.D. 10/27/17 AMENDED REPORT 10/27/17 1527 PATH REV previously reported as: January carmelo Performed By: #### L100.0100 #### [facility] [place], [address] IMMUNOHISTOCHEMISTRY Observed: 10/27/2017 Status: F Source: SEC[place] 12:00 AM [facility] REPOSITORY Patient: LINDSAY ANTUNEZ : 1965 (52/F) Acct Num: [id number] Phys: Carolina Pak MD Unit Num: [id number] Loc: CT Specimen: [id number] Received: 10/30/17 - 1259 Spec Type: IMMUNO TISSUES TISSUES: A. Bone marrow of iliac crest SPECIMEN INFORMATION: Tissue Source: A Bone marrow core Clinical Info: Metastatic breast (lobular) CA Specimen Number: [id number] CPT code: 25795, 33997 x7 METHODOLOGY: Deparaffinized sections of prefer/formalin-fixed tissue or PAP/DQ stained slides are incubated with monoclonal/polyclonal antibodies/oligonucleotide probes. Localization is made via biotin free immunoperoxidase method. Appropriate controls are performed and reacted as expected. Results on target cell population are indicated in the following table: RESULTS: ANTIBODY / CLONE RESULT Block A GATA3 (L50-823) positive Mammaglobin (31A5) positive CK8 (41blatG67) positive Her-2neu (CB11) positive E-Cad (ECH-6) negative CK7 (OV-TL12/30) positive CK20 (KS20.8) negative Vimentin (V9) * * Noncontributory These tests were developed and their performance characteristics determined by [facility]. They may not have been cleared or approved by the U.S. Food and Drug Administration. The FDA has determined that such clearance or approval is not necessary. INTERPRETATION: A. Bone marrow core: Consistent with metastatic breast carcinoma. AM:adrienne 10/31/17 PHYSICIAN AND INSTITUTION [place] [phone] Signed [facility] 10/31/17 <signature on file> Performed By: #### PIMM #### [facility] [address] [place] [address]. [place], [place], [id number] BONE MARROW BIOPSY Observed: 10/27/2017 Status: F Source: SECOR 12:00 [facility] REPOSITORY Patient: LINDSAY ANTUNEZ : 1965 (52/F) Acct Num: [id number] Phys: Carolina Pak MD Unit Num: [id number] Loc: CT Specimen: [id number] Received: 10/27/17 - 1030 Spec Type: BMB TISSUES TISSUES: A. Bone marrow, NOS - CORE B. Bone marrow, NOS - SLIDES BONE MARROW GROSS A - Received is a container labeled with the patient's name and designated right iliac crest. The specimen consists of multiple fragments of blood clot with possible minute fragments of bone measuring in aggregate 1.5 x 0.2 x 0.1 cm. The specimen is totally submitted in one cassette after decalcification. B - Also received are 5 unstained and 1 peripheral stained slides. The unstained slides are submitted for appropriate staining. / SJ:adrienne 10/27/17 TC:0 CPT: 82605, 28655, 83590 x2, 94794 x3, 46080 BONE MARROW STUDY Slides are reviewed. COMMENT The bone marrow biopsy consists of extremely minute fragments of bone and bone marrow elements diluted with blood. Present in the specimen are scattered malignant cells consistent with metastatic carcinoma. The bone marrow aspirate smears are markedly hypocellular and hemodilute and contain scattered malignant cells consistent with metastatic carcinoma. Reference is made to the patient s left breast mass, needle core biopsy (S18- 255) in which invasive lobular carcinoma, pleomorphic variant, nuclear grade 3 was identified. Reference is also made to the patient s fine needle aspiration cytology (C18-25) of left breast mass which was positive for malignant cells consistent with metastatic carcinoma. Iron stain with matched control reveals focal stainable iron. Reticulin stain with matched control is noncontributory. PAS stain with matched control is noncontributory. Case has been reviewed in consultation with Dr. Chappell who concurs with the above diagnosis. IDC:SJ Immunohistochemistry ([id number]) supports the above diagnosis. BONE MARROW DIAGNOSIS Bone marrow biopsy, core and aspiration: Metastatic carcinoma consistent with breast primary. AM:adrienne 10/31/17 HEADER OPERATION: Bone marrow, right iliac crest PRE-OP DIAGNOSIS: Metastatic breast (lobular) cancer TISSUE SUBMITTED: A - Core, B - Smears Signed Wiley Gibbons 10/31/17 <signature on file> Performed By: #### PBMB #### [facility] [address] [facility] [place], [address] CONSULTATION Observed: 10/26/2017 Status: F Source: SECOR 5:36 PM [facility] REPOSITORY [facility] Medical Records Department [address] [place] [address] Consultation 10/26/17 1655 MR#: [id number] Acct: [id number] Name: LINDSAY ANTUNEZ Rep #: [id number] : 1965 52 From: Kev Schroeder DO PCP: Care Physician, No Primary Status: REG RCR Y Location: OMD Date of Service: 10/26/17 Referring Provider: Dr. 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 History of Present Illness: 10/09/2017: Patient was seen in the emergency room due to left shoulder pain radiating to the right shoulder with right-sided chest pain as well as left nipple retraction with left breast discharge. 10/10/2017: Bilateral diagnostic mammogram was performed and demonstrated a 2.1 x 2.4 cm spiculated mass in the retroareolar region of the left breast which corresponds to the palpable abnormality, there are diffuse microcalcifications seen within it, there is also evidence of left axillary lymphadenopathy, no other significant abnormalities were identified. BI-RADS 5. 10/12/2017: CT chest was completed and showed evidence for diffuse lytic lesions seen throughout the thoracic and lumbar vertebrae, lucent lesions are also identified in the lower cervical segment as well as the humeral heads bilaterally. There is evidence of lytic lesions noted in the sternum as well as along the medial aspect of the clavicles as well as the left scapula. Also suspected or lytic lesions that are very small and several bilateral ribs. A left breast mass is identified as well as several enlarged left axillary lymph nodes. There is also a few scattered subcutaneous tissue nodules noted. 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 10/20/2017: Patient completed brain MRI with contrast which demonstrated evidence for 5 lesions consistent with metastatic disease for lesion is located within the cerebellum and the fifth lesion located in the posterior internal capsule on the right side. There is minimal associated edema. There is also heterogeneous low signal within the calvarium present which may represent an infiltrative bone marrow process though no focal calvarial lesions are noted, upper cervical spine shows multiple areas of osseous enhancement consistent with metastatic disease. 10/20/2017: MRI of the cervical thoracic and lumbar spine was completed which demonstrated evidence for diffuse osseous metastatic disease with a lytic appearance, no pathologic compression fractures or spinal cord compression is identified, no paraspinal masses are identified, there are no intra-canalicular lesions seen. 10/25/2017: CT abdomen and pelvis with contrast was performed which demonstrated evidence for diffuse osseous disease within the thoracic and lumbar spine as well as the sacrum and pelvis and both proximal femora. There is a single 7 mm hypodense lesion in the right liver, but no evidence for other sites of metastatic disease. Radiation Treatment History: No history of previous radiation therapy or chemotherapy. No pacemaker. No history of collagen vascular disease. Interval History: Patient presents for initial consultation. She reports that she may have had a breast lesion for a few months but does not believe much longer than that and that she has had increased pain diffusely throughout her back and chest for at least the last month or so. She was seen by pain management who started her on hydrocodone and she has noted an improvement in her pain but is not completely gone. She has also noted increased fatigue and unexpected weight loss of about 15-20 pounds. She describes a history of mild headaches but she specifically denies vision changes including diplopia, changes in her hearing, nausea/vomiting, focal weakness, decrease in coordination or cognition, ataxia, seizures, changes in speech or swallowing, or incontinence of urine or stool. She describes having a numbness and tingling sensation in the left arm inferior aspect running all the way down the arm to the wrist and sometimes even to the fifth digit. She also reports occasional pain in the left breast specifically involving the firm lesion. She reports normal arm range of motion and strength but does have some pulling and pain when raising her left arm above her head. 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 She reports being able to complete all activities of daily living with minimal difficulty although she does have to go slower due to fatigue and pain at this time. Denies any other problems or complaints at this time. Family History (Last Reviewed 10/26/17 @ 10:36 by Sloane Schwartz) Mother Heart disease Father Heart disease Aunt Breast cancer Medical History (Last Reviewed 10/26/17 @ 10:35 by Sloane Schwartz) Primary cancer of left female breast (Acute) Regional lymph node metastasis present (Acute) Bone metastases (Acute) Pneumonia (Acute) Surgical History (Last Updated 10/26/17 @ 10:36 by Sloane Schwartz) Hx of tonsillectomy (Acute) History of section (Acute) Gynecological History Age at first period: 19 LMP: 08/25/17 Do you have regular skin lifter bacon No examinations and PAP smears? Hx Control Yes Hx Hormone Therapy No Obstetrical History Number of pregnancies: 2 Number of children: 3 Have you ever breastfed in the Yes past? Breast Health Monthly breast self-exams Yes performed? Do you have regular clinical No breast examinations? Date of last mammogram: 10/10/17 Have you ever had an abnormal Yes mammogram? Home Medications Medication Instructions Recorded Hydrocodone Bitart/Apap 5-325 1 tablet PO Q6H PRN PRN #10 tablet 10/18/17 [[place] 5MG-325MG] Dexamethasone 4 mg PO BID #30 tab 10/19/17 Lidocaine/Prilocaine 30 gm TP DAILY PRN PRN #1 cream..g. 10/19/17 Allergies No Known Allergies Allergy (Verified 10/26/17 11:21) Health Maintenance Do you regularly see your No primary care physician? Have you ever had a No colonoscopy? I have reviewed the medical, surgical, and other pertinent history in details and have updated medication and allergy information in the electronic medical record. Review of Systems: A 12-point review of systems was completed and was negative except for what is noted in the HPI/Interval History and by the nurse. Height/Weight/BMI: Height: 5 ft 2 in Weight: 55.429 kg BMI: 22.3 (Please select Data Format - MARTINEZ: Vital Signs) Physical Exam: ECO KARNOFSKY SCORE: 80% CONSTITUTIONAL: Well-developed, well-nourished. In noticeable distress over imaging results. HEENT: Mucous membranes moist. No evidence of thrush or lesions within the visualized oropharynx or oral cavity. No trismus. Pupils are equal, round, and reactive to light and accommodation. Extraocular movements are intact. Sclerae are anicteric. NECK: Supple,with no thyromegaly, and non-tender. Trachea midline. There are a few small firm nodules in the left neck thought to be palpable lymph nodes. CARDIAC: Regular rate and rhythm. Normal S1, S2. No murmurs, rubs, or gallops. PULMONARY/CHEST: Lungs are clear to auscultation and percussion bilaterally. No wheezes, rhonchi, or crackles noted. No increased work of breathing. BREAST: The left breast was examined which demonstrates nipple inversion and a large palpable firm and somewhat tender mass is noted in the outer region of the breast. There are multiple firm palpable lymph nodes noted within the axilla. ABDOMINAL: Abdomen soft, non-tender, non-distended. No hepatomegaly. Normoactive bowel sounds in all four quadrants. No guarding, rebound. BACK: Straight and aligned. No CVA tenderness. Axial skeleton non-tender to percussion. EXTREMITIES: Full range of motion in all four extremities, with normal strength equally and symmetrically. No evidence of edema. No clubbing. SKIN: Skin is warm and dry. No rashes or lesions evident. There are multiple neurofibromas noted involving the chest and abdomen as well as other areas. NEUROLOGICAL EXAM: Alert and oriented x 3. Cranial nerves II through XII are grossly intact. Speech is fluent. Numbness/tingling is noted in the left arm in the C8/T1 dermatome, there are no other upper or lower extremity sensory deficit or motor deficit. Muscle strength is 5/5 in all muscle groups. Gait and posture are steady. Normal finger to nose without evidence of dysmetria, rapid movement is normal. PSYCHIATRIC: Appropriate mood and affect for the clinical situation. 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 Plan: I had a detailed discussion with the patient regarding imaging findings including the CT chest abdomen pelvis as well as the MRI brain and spine which demonstrate widespread metastatic disease. I discussed the role for palliative radiation therapy to bone metastases, but at this time her pain is fairly well-controlled with medication and she does not have particular sites of high pain but rather has more diffusely spread pain throughout multiple osseous structures. Current plan would be to treat her with pain medication and allow the systemic therapy and bisphosphonate therapy to hopefully address many of the bone metastases with the option of using radiation therapy in the future if needed. In regards to the brain MRI I discussed that there were 5 lesions noted all being about 1 cm or less with minimal associated vasogenic edema. I believe clinically her symptom of left arm numbness is likely related to the local axillary disease and involvement near the brachial plexus and not related to the brain disease. She has been placed on Decadron by medical oncology and I reduced her dose to 4 mg daily given the minimal amount of edema. I also discussed that the current MRI does not have finally cut slices and so there could be other lesions identified with a volumetric scan which will be completed prior to her treatment. She is also planning to have a bone scan next week as well as a CT-guided biopsy to a metastatic site to confirm metastatic disease. I explained that while these tests are ongoing we should proceed with treatment to the STATE PILOT disease. I explained that when feasible for brain metastases the treatment paradigm is that we would use focal radiation therapy such as SRS or FSRT to treat sites of brain metastases and try to minimize dose to the normal brain, but that this is only feasible when the number of brain metastases less numerous, generally less than 10 brain metastases. I also discussed the option of using whole brain radiation therapy. The benefit of using more focal radiation is to treat the known areas of metastasis while sparing the normal brain and reducing the risk of toxicities with the downside being that there is a higher risk of disease recurrence elsewhere in the brain in the future and therefore careful MRI monitoring is needed going forward. Conversely, the benefit of whole brain radiation therapy is to treat all of the areas that are seen as well as any microscopic areas that are not detected by the MRI and results in a higher disease control probability of the brain as a whole. However, the downside to whole brain radiation therapy as the risk of neurocognitive side effects. Following our discussion the patient was interested in pursuing focal radiation therapy to the sites of disease in the STATE PILOT, and I explained that she will need referred to [facility] for this to be completed which she was in agreement with. I discussed the logistics of SRS/FSRT including obtaining a new volumetric brain MRI followed by CT simulation for treatment planning and then most likely 1-3 treatments. I discussed the risks, benefits, and alternatives to radiation therapy and I briefly discussed the potential side effects associated with brain SRS/FSRT. All questions and concerns were addressed and I will plan to refer her to the [facility] in [facility] to pursue radiation to her brain lesions. She was instructed to call with any further questions or concerns in the interim. Thank you for allowing me to participate in the management and care of your patient. If I may answer any questions in the interim, please do not hesitate to contact me at any time. Kev Schroeder DO, MS Demurrage Agent, Department of Radiation Oncology [facility] 10/26/17 6602 <Electronically signed by Kev Schroeder DO> Date Kev Schroeder DO Cosigner Signature (if applicable): Date CC: No Primary Care Physician Signed ABDOMEN/PELVIS W IV CONT Observed: 10/25/2017 Status: F Source: SECOR ONLY 2:24 PM [facility] REPOSIT[facility] Imaging Services [address] [place] [address] Abdomen/Pelvis W IV Cont ONLY MR#: [id number] Acct: [id number] Name: LINDSAY ANTUNEZ Rep #: [id number] : 1965 F 52 From: Guevara Emanuel DO PCP: En Granados III, MD Status: REG CLI Study: Abdomen/Pelvis W IV Cont ONLY Date of Exam: 10/25/17 Exam# [id number] Ordering Dr: Carolina Pak MD STUDY: CT ABDOMEN AND PELVIS WITH CONTRAST REASON FOR EXAM: Female, 52 years old. Malignant neoplasm. Stage IV breast cancer. RADIATION DOSAGE (If Supplied By Facility): CTDIvol = ( 11.1 ) mGy, DLP = ( 347.88 ) mGycm TECHNIQUE: Transaxial images were obtained from the dome of the diaphragm to the symphysis pubis without oral contrast. 100CC ml of Isovue 300 contrast was administered. Sagittal and coronal images were reconstructed. Individualized dose optimization techniques were used for this CT. COMPARISON: CT of the chest, October 12, 2017. CT of the abdomen and pelvis, July 21, 2009. FINDINGS: And seen are mild emphysematous changes of the lungs. There is no new infiltrate or mass The visualized portions of the heart are within normal limits. Liver is normal in size contour and density. In the dome of the right liver there is a 7 mm hypodensity best seen on image 17 of series 1002. This was not seen on the prior CT and raises concern for metastatic disease. No other liver mass is a similar 5 mm hypodensity in segment 6 of the liver best seen on image 29. Again this is not identified on the prior CT. Normal gallbladder and extrahepatic biliary system. Normal spleen. Normal pancreas. Normal bilateral adrenal glands. Normal right kidney. Normal left kidney. Normal visualized stomach. Normal small intestine. Normal colon. The appendix is visualized and appears normal. There is mild atherosclerotic changes and ectasia of the aorta without aneurysm. There is no dissection. Normal inferior vena cava. Normal retroperitoneum. Normal urinary bladder. Normal uterus and ovaries. There is no pelvic lymphadenopathy. No free air or free fluid is seen within the peritoneal cavity. There is a 1.7 x 0.8 x 1.6 cm soft tissue mass in the subcutaneous left upper abdomen present on the prior study and thought to represent a sebaceous cyst. Abdominal wall is otherwise unremarkable. There is diffuse moth-eaten appearance of the visualized thoracic and lumbar spine. Similar findings are seen within the sacrum, coccyx and pelvis. Lucent areas are also seen in both proximal femora. The findings are most suspicious for metastatic disease. There is no vertebral collapse. These findings were not present on the prior abdominal CT CT/Abdomen/Pelvis W IV Cont ONLY IMPRESSION: 1. Diffuse metastatic disease of the spine and pelvis. 2. Low-attenuation lesions in the right liver. Question metastatic disease 3. Stable mass in the left abdominal wall thought to represent sebaceous cyst. 4. No other evidence of abdominal or pelvic abnormality.. Electronically Signed: Guevara Emanuel DO at 17:03 EST Tel [phone], Service support , CC: En Granados III, MD; Carolina Pak MD Wheel Truer: Signed CERV SPINE 2 OR 3 Observed: 10/23/2017 Status: F Source: KRYSTAL VIEWS 4:20 PM [facility] RE[facility] Imaging Services [address] [place] [address] Cerv Spine 2 or 3 Views MR#: [id number] Acct: [id number] Name: LINDSAY ANTUNEZ Rep #: [id number] : 1965 F 52 From: Victor M Aleman MD PCP: En Granados III, MD Status: REG CLI Study: Cerv Spine 2 or 3 Views Date of Exam: 10/23/17 Exam# [id number] Ordering Dr: Lauro Anderson MD STUDY: X-RAY - CERVICAL SPINE REASON FOR EXAM: Female, 52 years old. Neck pain TECHNIQUE: 5 view(s) of the cervical spine were obtained. COMPARISON: None FINDINGS: Normal anterior atlantoaxial articulation. The odontoid process is obscured by the overlying hard palate on the open mouth view. Therefore, it is not fully evaluated by plain film. Normal cervical lordosis. Normal vertebral bodies and endplates. Normal disc space heights. Normal visualized intervertebral neuroforamina. The soft tissue structures are unremarkable. RAD/Cerv Spine 2 or 3 Views IMPRESSION: The odontoid process is obscured by the overlying hard palate on the open mouth view. Therefore, it is not fully evaluated by plain film. Electronically Signed: Victor M Aleman MD at 16:36 EST , Service support , CC: Lauro Anderson MD; En Granados III, MD Wheel Truer: Signed ECHOCARDIOGRAM COMPLETE Observed: 10/20/2017 Status: F Source: KRYSTAL 3:44 PM [facility] Cardiovascular Services [address] [place] [address] Echo Complete 10/20/17 1337 MR#: [id number] Acct: [id number] Name: LINDSAY ANTUNEZ Rep #: [id number] : 1965 52 From: Berhane Murray MD Attending Dr: Carolina Pak MD Status: REG CLI Ordering Dr: Carolina Pak MD Date: 10/20/17 Location: [facility] Sex: F C Admitted: Reason For Study: Neoplasm-Pre Chemo Procedure This was a 2D Doppler, Color Flow transthoracic echocardiogram. Exam performed in department. Left Ventricle Normal size and thickness. The estimated ejection fraction is 65 %. Stage 1 diastolic dysfunction. No regional wall motion abnormalities noted. Right Ventricle Normal size and thickness. Normal systolic function. Atria Normal left atrium. Normal right atrium. Normal atrial septum. Mitral Valve The mitral valve is structurally normal. No prolapse or stenosis seen. Tricuspid Valve Normal tricuspid valve. Trivial tricuspid valve insufficiency. Right ventricular systolic pressure estimated to be 33 mmHg. Aortic Valve Trisinus/trileaflet aortic valve. Pulmonic Valve Normal pulmonic valve. Great Vessels Normal aortic root. Normal arch. Normal inferior vena cava. Inferior vena cava collapse with sniff. Pericardium/Pleural No pericardial effusion. MMode/2D Measurements AND Calculations LVIDd: 3.4 cm IVSd: 1.1 cm Ao root diam: 2.7 cm LVIDs: 1.9 cm LVPWd: 1.2 cm LA dimension: 3.1 cm RVDd: 3.2 cm FS: 44.2 % LAV(MOD-bp): 36.7 ml LVAd ap4: 27.0 cm2 SV(MOD-sp4): 51.6 ml LAV(MOD-bp) Indexed: 23.1 ml/m2 EDV(MOD-sp4): 77.3 ml LAV(MOD-sp2): 41.6 ml EDV(sp4-el): 80.0 ml LAV(MOD-sp4): 30.5 ml LVAs ap4: 13.3 cm2 ESV(MOD-sp4): 25.8 ml ESV(sp4-el): 23.8 ml EF(MOD-sp4): 66.7 % EF(sp4-el): 70.2 % SV(sp4-el): 56.2 ml LA A4 area: 13.3 cm2 RA A4 area: 12.8 cm2 Time Measurements MV dec time: 0.27 sec Doppler Measurements AND Calculations MV A max [place]: 98.7 cm/sec Lat Peak E' [place]: 10.8 cm/sec Med Peak E' [place]: 40.9 cm/sec MV V2 max: 90.6 cm/sec MV P1/2t max [place]: 70.6 cm/sec Ao V2 max: 155.9 cm/sec MV max P.3 mmHg MV P1/2t: 102.5 msec Ao max P.7 mmHg MV V2 mean: 48.1 cm/sec MV dec slope: 201.9 cm/sec2 Ao V2 mean: 98.7 cm/sec MV mean P.1 mmHg MVA(P1/2t): 2.1 cm2 Ao mean P.5 mmHg MV V2 VTI: 21.5 cm Ao V2 VTI: 27.1 cm LV V1 max: 124.0 cm/sec PA V2 max: 120.4 cm/sec TR max [place]: 262.7 cm/sec LV V1 max P.1 mmHg TR max P.6 mmHg LV V1 mean P.8 mmHg LV V1 mean: 75.9 cm/sec LV V1 VTI: 23.2 cm Interpretation Summary The estimated ejection fraction is 65 %. Stage 1 diastolic dysfunction. Trivial tricuspid valve insufficiency. Right ventricular systolic pressure estimated to be 33 mmHg. There is no comparison study available. Ordering Physician: Carolina Pak Referring Physician: Carolina Pak Performed By: Chandan Weller RCS 10/20/17 1543 Date Berhane Murray MD CC: No Primary Care Physician; Carolina Pak MD Date Dictated: 10/20/17 1337 Date Transcribed: 10/20/17 1543 Wheel Truer: Signed SPINE CERVICAL W/WO Observed: 10/20/2017 Status: F Source: [facility] CONTRAST 3:07 PM [facility] Imaging Services [address] [place] [address] Spine Cervical W/WO Contrast MR#: [id number] Acct: [id number] Name: LINDSAY ANTUNEZ Rep #: [id number] : 1965 F 52 From: Hebert Montano MD PCP: Care Physician, No Primary Status: PRE CLI Study: Spine Cervical W/WO Contrast Date of Exam: 10/20/17 Exam# [id number] Ordering Dr: Mar Medrano STUDY: MRI CERVICAL SPINE WITH AND WITHOUT CONTRAST REASON FOR EXAM: Female, 52 years old. Metastatic breast cancer TECHNIQUE: Standardized fat and water weighted pulse sequences were obtained in the sagittal and axial following I.V. administration of 6 ml of Gadavist contrast material. COMPARISON: None FINDINGS: Normal foramen magnum and brainstem-cervical cord junction. Normal craniovertebral junction. Normal anterior atlantoaxial articulation. Normal odontoid process. Multiple enhancing cerebellar lesions are present compatible with metastatic disease. There is some ballooning of the T4 vertebral body on the right. There is some ballooning of the T2 vertebral body anteriorly. Normal cervical lordosis. Multiple T1 hypointense and T2 hyperintense bone lesions are present throughout the cervical spine compatible with metastatic disease. These lesions demonstrate patchy postcontrast enhancement. C2-3: Normal endplates. Normal disc height, signal and morphology. Normal central canal and intervertebral neural foramina. C3-4: Normal endplates. Normal disc height, signal and morphology. Normal central canal and intervertebral neural foramina. C4-5: Normal endplates. Normal disc height, signal and morphology. Normal central canal and intervertebral neural foramina. C5-6: Disc osteophyte complex and central disc protrusion with moderate central canal stenosis and ventral cord deformity. C6-7: Central disc protrusion with moderate central canal stenosis and ventral cord deformity. C7-T1: Mild disc osteophyte complex with mild central canal stenosis. No cord signal abnormalities are seen. Normal visualized soft tissue structures. MRI/Spine Cervical W/WO Contrast IMPRESSION: Diffuse osseous metastatic disease. Disc disease with cortical deformities at C5-6 and C6-7. No metastatic lesions are seen in the cord or epidural space. Electronically Signed: Hebert Montano MD at 3:54 EST Tel , Service support , CC: No Primary Care Physician; Mar Medrano NP Wheel Truer: Signed SPINE THORACIC W/WO Observed: 10/20/2017 Status: F Source: [facility] CONTRAST 3:07 PM [facility] Imaging Services [address] [place] [address] Spine Thoracic W/WO Contrast MR#: [id number] Acct: [id number] Name: LINDSAY ANTUNEZ Rep #: [id number] : 1965 F 52 From: Hebert Montano MD PCP: Care Physician, No Primary Status: PRE CLI Study: Spine Thoracic W/WO Contrast Date of Exam: 10/20/17 Exam# [id number] Ordering Dr: Mar Medrano SUPPORTABILITY ENGINEER-C STUDY: MRI THORACIC SPINE WITH AND WITHOUT CONTRAST REASON FOR EXAM: Female, 52 years old. Metastatic breast cancer TECHNIQUE: 6 ml of Gadavist was administered intravenously for the contrast portion of the examination. COMPARISON: None. FINDINGS: Diffuse confluent osseous metastatic disease is present. Lesions are T1 hypointense with mottled postcontrast enhancement. No acute pathologic compression fractures are seen. Several of the thoracic vertebral bodies demonstrate mild ballooning both anteriorly and posteriorly. No severe central canal stenosis. No cord signal abnormalities are seen. No evidence of cord expansion. No epidural metastatic lesions are seen. No significant thoracic disc disease or evidence of exiting thoracic nerve root impingement. A nodule is present in the subcutaneous tissues near the sternal manubrium, measuring 13 mm. MRI/Spine Thoracic W/WO Contrast IMPRESSION: Diffuse osseous metastatic disease without evidence of pathologic fracture. There is some ballooning of multiple thoracic vertebral bodies. No evidence of epidural metastatic disease or focal cord pathology. Electronically Signed: Hebert Montano MD at 4:05 EST Tel , Service support , CC: No Primary Care Physician; Mar Medrano SUPPORTABILITY ENGINEER Wheel Truer: Signed SPINE LUMBAR W/WO Observed: 10/20/2017 Status: F Source: [facility] CONTRAST 3:07 PM [facility] Imaging Services [address] [place] [address] Spine Lumbar W/WO Contrast MR#: [id number] Acct: [id number] Name: LINDSAY ANTUNEZ Rep #: [id number] : 1965 F 52 From: Hebert Montano MD PCP: Care Physician, No Primary Status: PRE CLI Study: Spine Lumbar W/WO Contrast Date of Exam: 10/20/17 Exam# [id number] Ordering Dr: Mar Medrano SUPPORTABILITY ENGINEER-C STUDY: MRI LUMBAR SPINE WITH AND WITHOUT CONTRAST REASON FOR EXAM: Female, 52 years old. Metastatic breast cancer TECHNIQUE: Standardized fat and water weighted pulse sequences were obtained in the sagittal and axial planes. 6 ml of Gadavist contrast material was administered for the contrast portion of the examination. COMPARISON: None FINDINGS: Normal lumbar lordosis. There is no substantial scoliosis. Normal conus medullaris that terminates at the L1-2 level. Diffuse osseous metastatic disease is present. Confluent lesions are T1 hypointense with mottled postcontrast enhancement. No pathologic compression fractures are seen at this time. No enhancing intracanalicular lesions are seen. No paraspinal masses are seen. Multilevel degenerative disc disease without severe central canal stenosis or evidence of en exiting nerve root impingement. Normal visualized paraspinous soft tissue structures. MRI/Spine Lumbar W/WO Contrast IMPRESSION: Diffuse osseous metastatic disease. No evidence of pathologic compression fracture. No evidence of intrathecal or epidural metastatic disease. Electronically Signed: Hebert Montano MD at 4:09 EST Tel , Service support , CC: No Primary Care Physician; Mar Medrano NP Wheel Truer: Signed BRAIN W/WO CONTRAST Observed: 10/20/2017 Status: F Source: [facility] 3:07 PM [facility] Imaging Services [address] [place] [address] Brain W/WO Contrast MR#: [id number] Acct: [id number] Name: LINDSAY ANTUNEZ Rep #: [id number] : 1965 F 52 From: Mark Rios DO PCP: Care Physician, No Primary Status: PRE CLI Study: Brain W/WO Contrast Date of Exam: 10/20/17 Exam# [id number] Ordering Dr: Mar Medrano SUPPORTABILITY ENGINEER-C ADDENDUM by Catarina García on 10/26/17 at 1131 MRI/Brain W/WO Contrast 10/26/171137 Date cc: No Primary Care Physician; Mar Medrano SUPPORTABILITY ENGINEER * Signed ADDENDUM by Catarina García on 10/26/17 at 1131 ADDENDUM There is one right posterior internal capsule lesion. There are 4 lesions within the cerebellum. Electronically Signed: Catarina García MD at 11:31 EST Tel , Service support , 10/26/17 1131 Date cc: No Primary Care Physician; Mar Medrano NP * Signed STUDY: MRI BRAIN WITH AND WITHOUT CONTRAST REASON FOR EXAM: Female, 52 years old. Breast cancer and metastatic disease TECHNIQUE: Standardized multiplanar fat and water weighted pulse sequences were obtained. 6 ml of Gadavist contrast material was administered intravenously for the contrast portion of the examination. COMPARISON: None. FINDINGS: Normal size of the ventricles and extra-axial spaces for the patient's age. Normal white matter tracts of the supratentorial brain. There is no evidence for recent intracranial ischemia or other cause of cytotoxic edema on diffusion weighted imaging (DWI). Normal T2* images of the brain without demonstrated susceptibility artifact. There is no demonstrated hemosiderin stain. Normal bilateral basal ganglia. Normal thalami. There is no extra-axial fluid accumulation. Normal flow voids within the major intracranial circulation suggesting patency by spin echo criteria. Normal venous enhancement. Within the right posterior internal capsule is a focal parenchymal region of enhancement as seen on series 3 image 14 measuring 3 mm consistent with focal metastatic disease. Pituitary gland is prominent and has a convex superior border. Underlying pituitary pathology (hyperplasia, adenoma, etc.) cannot be excluded. Normal tectal plate and pineal gland. Normal midbrain, jose and medulla. Multiple enhancing nodules within the bilateral cerebellar parenchyma are present with the left anterior nodule measuring 8 mm as seen on series 4 image 2 with additional enhancing nodules within the mid bilateral cerebellum as seen on series 3 image 4 and image 3. Normal basal cisterns. Normal bilateral temporal bones. Normal bilateral internal auditory canals. No demonstrated orbital abnormality, within the constraints of a routine brain study. Normal visualized paranasal sinuses. The calvarium is diffusely and abnormally T1 hypointense which could suggest underlying metastatic disease. Normal visualized soft tissue structures. Metastatic lesions are visible in the upper cervical spine with multiple areas of enhancement as seen and coronal series 4 image 14.. MRI/Brain W/WO Contrast IMPRESSION: 1. No evidence of acute intracranial bleed or ischemia. There is right posterior internal capsule 3 mm focal area of enhancement with subcentimeter multiple areas of enhancement within the bilateral cerebellum as above consistent with metastatic disease. Heterogeneous low signal within the calvarium is present which can be seen with infiltrative marrow process though no focal enhancing calvarial lesions are noted. 2. Upper cervical spine multiple areas of osseous enhancement consistent with metastatic disease. Electronically Signed: Mark Rios DO at 10:05 EST , Service support , CC: No Primary Care Physician; Mar Medrano NP Wheel Truer: Signed CBC W/DIFF, AUTOMATED Collected: 10/19/2017 Status: C Source: [facility] 8:28 AM [facility]POS[facility] Order Comment: Reason for Laboratory Test PRE-CHEMO TYPE CODE TESTS RESULT OUT OF RANGE REFERENCE UNITS LAB L100.1000 4.4-11.0 K/mm3 Normal WBC 8.5 LAB L100.1200 4.2-5.4 M/mm3 Low RBC 4.03 LAB L100.1300 12.0-15.0 g/dl Low HGB 11.8 LAB L100.1400 37-47 % Low HCT 36.6 LAB L100.1500 81-99 fL Normal MCV 90.8 LAB L100.1600 27.0-32.0 pg Normal MCH 29.3 LAB L100.1700 32-36 g/gl Normal MCHC 32.2 LAB L100.1810 11.6-14.6 % Normal RDW CV 13.0 LAB L100.1820 35.1-43.9 fl Normal RDW SD 43.2 LAB L100.1900 150-450 K/mm3 Normal PLT 296 LAB L100.2000 6.2-12.0 fl Normal MPV 9.7 LAB L100.3100 MANUAL DIFF Normal CELLS COUNTED 100 LAB L100.3200 47-70 % 64 Normal SEGS LAB L100.3400 0-1 % High 3 META LAB L100.3500 0-0 High 1 MYELO LAB L100.3600 0-0 High 1 PROMYELO LAB L100.3800 19-41 % 21 Normal LYMPH LAB L100.3900 0-10 % 8 Normal MONOCYTE LAB L100.4000 0-5 % 2 Normal EOS LAB L100.5500 ADEQ Normal PLT EST ADEQUATE LAB L100.7000 NORM C AND C NORMAL Normal RED CELL MORPH NORM C+C LAB L100.2620 2.0-7.7 X10 3/uL Normal Absolute Neut 5.4 LAB L100.2720 0.83-4.51 X10 3/ul Normal Absolute Lymph 1.79 LAB L100.9900 Normal PATH REV Reviewed Result Comment: Normocytic anemia. Clinical correlation suggested. Wiley Gibbons D.O. 10/20/17 AMENDED REPORT 10/20/17 0817 PATH REV previously reported as: Beth rhodes Performed By: #### L100.0100, L500.4050 #### [facility] [address] [place], [address] COMPREHENSIVE METABOLIC Collected: 10/19/2017 Status: F Source: [facility] 8:28 AM [facility] Order Comment: Reason for Laboratory Test PRE-CHEMO TYPE CODE TESTS RESULT OUT OF RANGE REFERENCE UNITS LAB L501.0100 70-110 mg/dL High GLU 124 Result Comment: Fasting Glucose result from 110 to <126 mg/dL suggests IMPAIRED HOMEOSTASIS per A.D.A. criteria. LAB L501.1000 7-18 mg/dL Normal BUN 12 LAB L501.1100 0.55-1.02 mg/dL Normal CREAT,SERUM 0.99 Result Comment: The validity of the calculated GFR AND GFRAA in patients over 70 years has not been determined. Clinical correlation is essential. LAB L501.1110 >60 mL/min Normal EST GFR 63 Result Comment: Non- GFR Calc LAB L501.1115 >60 mL/min Normal EST GFR - AA 76 Result Comment: GFR Calc LAB L501.1255 ml/min Normal Estimated CRCL 53.77 LAB L501.1300 10-20 RATIO Normal BUN/CRE 12.1 LAB L501.1500 6.4-8. g/dL Normal 2 T PROT 7.2 LAB L501.1800 3.4-5. g/dL Low 0 ALB 2.9 Result Comment: Please note revised Albumin AND Globulin reference range effective 2017. LAB L501.1950 2.2-4.2 g/dL High GLOB 4.3 LAB L501.2000 0.9-2.4 RATIO Low A/G 0.7 LAB L501.2200 8.5-10.1 mg/dL High CA 10.2 LAB L501.4100 15-37 U/L High AST 108 LAB L501.4305 45-117 U/L High ALK P 147 LAB L501.4405 12-78 U/L High ALT 141 LAB L501.4600 0.20-1.00 mg/dL Normal T BILI 0.30 LAB L501.5300 136-145 mmol/L Normal NA 142 LAB L501.5600 3.5-5.1 mmol/L Normal K 3.7 LAB L501.5900 98-107 mmol/L Normal CL 105 LAB L501.6100 21.0-32.0 mmol/L Normal CO2 28.0 LAB L501.6200 5-15 Normal GAP 9 Performed By: #### L100.0100, L500.4050 #### [facility] [address] [facility] [place], [place], [address] CA 27.29 Collected: 10/19/2017 Status: F Source: SECOR 8:28 AM [facility] Order Comment: Reason for Laboratory Test PRE-CHEMO TYPE CODE TESTS RESULT OUT OF RANGE REFERENCE UNITS LAB L3100.5040 0.0-38.6 U/mL Normal CA27.29 20.5 [id number] Result Comment: Jeni Centaur/ACS methodology Performed at: - [facility] [address] [id number] Insurance Territory Manager: Rl Archibald PhD, Phone: [phone] Performed By: #### L3100.5040 #### [facility] (refer to report for specific site) refer to report for address and phone number DISCHARGE INSTRUCTION Observed: 10/18/2017 Status: F Source: SECOR 5:14 PM [facility] Medical Records Department [address] [place] [address] Instructions for Home/Discharge Instructions 10/18/17 0859 MR#: [id number] Acct: [id number] Name: LINDSAY ANTUNEZ Rep #: [id number] : 1965 52 From: rBan Granados MD PCP: Care Physician, No Primary Status: [facility] Allergies/Adverse Reactions: Allergies No Known Allergies Allergy (Verified 10/17/17 14:44) Medications to take at Discharge Naproxen Sodium [Aleve] 220 mg PO PRN PRN 10/17/17 Hydrocodone Bitart/Apap 5-325 [[place] 5MG-325MG] 1 tablet PO Q6H PRN PRN #10 tablet 10/18/17 The following prescriptions were given: Hydrocodone Bitart/Apap 5-325 [[place] 5MG-325MG] 1 tablet PO Q6H PRN PRN #10 tablet PRN Reason: Pain Primary Care Physician: Care Physician,No Primary [Primary Care Provider] - 10/18/17 1714 <Electronically signed by Bran Granados MD> Date Bran Granados MD CC: No Primary Care Physician OPERATIVE REPORT Observed: 10/18/2017 Status: F Source: SECOR 5:14 PM [facility] Medical Records Department [address] [place] [address] Operative Report 10/18/17 1001 MR#: [id number] Acct: [id number] Name: LINDSAY ANTUNEZ Rep #: [id number] : 1965 52 From: Bran Granados MD PCP: Jac Physician, No Primary Status: [facility] [place] [facility] [place] List (1) Primary cancer of left female breast Status: Acute Report of Operation Date of Procedure: 10/18/17 Pre-Operative Diagnosis: Metastatic left breast cancer Post-Operative Diagnosis: Metastatic left breast cancer Surgery/Procedure Performed:: Right internal jugular 6 Bengali PowerPort placement Description of Surgical Findings:: Timeout and informed consent was obtained. 52-year-old female was taken out from placement table. Monitored anesthesia care was provided. Ancef 2 g given intravenous preoperatively. The right neck and chest were sterilely prepped and draped. Ultrasound was used to identify the right internal jugular vein. Under ultrasound guidance 1% lidocaine mixed 50-50 with 0.5% marcaine was used as local anesthetic. Throughout the procedure total 25 cc was used. Local was instilled. Micropuncture needle was inserted. Micropuncture wire inserted. Micropuncture sheath inserted. No 3 5 J-wire was inserted. Local was instilled down upon the chest wall. And an appropriate position midclavicular line second intercostal space transverse incision was created. Electrocautery was used to make a subcutaneous pocket. The tunnel tubing was then tunneled from the chest to the neck. Then the sheath dilator was placed over the wire and confirmed with fluoroscopy. The wire and dilator were removed. The catheter was advanced through the sheath. The sheath was split. The cath was positioned at the SVC atrial junction. The catheter was amputated to length and connected the port secured to the port attachment device. The port was placed within the pocket and secured there with interrupted 2-0 silk. The port site was closed with interrupted 3-0 Vicryl subdermal stitches. The neck was closed with interrupted 5-0 Vicryl subdermal stitches. Steri-Strips Telfa and OpSite dressings applied. Sponge instrument and needle counts were reported the surgeon be correct. Blood loss was minimal. She tolerated the procedure well. She was taken to the recovery or insect condition without apparent complication. Stat portable chest x-ray is pending. Bran Granados M.D., F.A.C.S. 10/18/17 1714 <Electronically signed by Bran Granados MD> Date Bran Granados MD CC: No Primary Care Physician; Bran Granados MD Signed CHEST 1 VIEW Observed: 10/18/2017 Status: F Source: SECOR (PORTABLE) 10:04 AM [facility] Imaging Services [address] [place] [id number] Chest 1 View (Portable) MR#: [id number] Acct: [id number] Name: LINDSAY ANTUNEZ Rep #: [id number] : 1965 F 52 From: Edgar Flannery MD PCP: Care Physician, No Primary Status: [facility] Study: Chest 1 View (Portable) Date of Exam: 10/18/17 Exam# [id number] Ordering Dr: Bran Granados MD STUDY: X-RAY CHEST REASON FOR EXAM: Female, 52 years old. Port placement. TECHNIQUE: Single AP portable view of the chest. COMPARISON: Comparison is made with prior study dated October 09, 2017. FINDINGS: A right-sided portacatheter is in situ. The tip is in the proximal portion of the superior vena cava. Stable mild increased markings in the right middle lobe. Stable elevation of the right minor fissure. There is no demonstrated pleural abnormality. Normal size heart. Normal mediastinum and anjel. Normal visualized pulmonary arteries. There is atherosclerotic tortuosity of the aortic arch and descending thoracic aorta. Normal visualized thoracic spine. Normal visualized ribs, clavicles, and shoulders. There is no demonstrated abnormality of the visualized soft tissue structures of the upper abdomen. RAD/Chest 1 View (Portable) IMPRESSION: The tip of the right portacatheter is in the proximal portion of the superior vena cava. Electronically Signed: Edgar Flannery MD at 11:18 EST Tel [phone], Service support , CC: No Primary Care Physician; Bran Granados MD Wheel Truer: Signed SURGERY VISIT REPORT Observed: 10/17/2017 Status: F Source: SECOR 4:29 PM [facility] [address] [place] [address] OFFICE VISIT Date of Service: 10/17/17 MR#: [id number] Acct: [id number] Name: LINDSAY ANTUNEZ Rep #: [id number] : 1965 Provider: Bran Granados MD Age/Sex: 52/F Location: [facility] Status: Signed Intake Intake Visit Reasons: breast and CT results Allergies No Known Allergies Allergy (Verified 10/17/17 14:44) Medications Naproxen Sodium [Aleve] 220 mg PO PRN PRN 10/17/17 [History Confirmed 10/17/17] PFSH Medical History Primary cancer of left female breast (Acute) Regional lymph node metastasis present (Acute) Bone metastases (Acute) Pneumonia (Acute) Surgical History History of section (Acute) Family History Mother Heart disease Father Heart disease Aunt Breast cancer Social History Smoking Status: Current every day smoker alcohol intake: never HPI HPI HPI: LINDSAY ANTUNEZ, is a 52 F who presents to the office today for surgical follow-up status post left breast needle core biopsy as well as left axillary ultrasound-guided fine-needle aspiration. I performed that procedure for her in the office on October 12, 2017. The breast biopsy shows invasive lobular carcinoma pleomorphic variant. Nuclear grade 3. The axillary lymph node fine aspiration showed positive for malignant cells consistent with metastatic carcinoma. Receptors are still pending at this time. Because the patient was complaining of shortness of breath chest pain obtain a chest CT scan on October 12, 2017 at the [facility]. There is a 1.3 x 1 cm soft tissue nodule in the medial aspect of the right hemithorax deep to the skin. There is a similar subtenons nodule in the similar location. Then there is a 2 x 1.1 similar nodule and substance issues left upper abdomen. There is left axillary adenopathy with the largest area being 1.2 cm. There is a 2 x 2.2 cm nodular mass in the left breast with a marking clip. There is diffuse emphysematous changes. There is a 5.6 mm x 5.8 mm focal nodular density on the lateral aspect of the right middle lobe. Her very recent office visit reflects the following: MR#:[id number]:[id number] Name: Lico ANTUNEZ #:[id number] : 1965 Provider:Bran Granados MD Age/Sex: 52/F Location:[facility] Status:Signed Intake Vital Signs 10/12/17 Height 5 ft 3 in 10/12/17 Weight: 140 lb 10/12/17 Body Mass Index (BMI) 24.7 10/12/17 Blood Pressure 120/79 10/12/17 Blood Pressure Location Lt brachial 10/12/17 Blood Pressure Position Sitting 10/12/17 Respiratory Rate 18 10/12/17 Pulse Rate 85 Intake Visit Reasons: birads 5 --left Custodian Supervisor Required: No Is patient in pain?: Yes (chest due to pneumonia) Pain scale (1-10): 5 Allergies No Known Allergies Allergy (Verified 10/12/17 07:55) Medications Levofloxacin [Levaquin] 500 mg PO DAILY #7 tab 10/09/17 [Rx Confirmed 10/12/17] [facility] Medical History Pneumonia (Acute) Surgical History History of section (Acute) Family History Mother Heart disease Father Heart disease Aunt Breast cancer Social History Smoking Status: Current every day smoker alcohol intake: never HPI HPI HPI: LINDSAY ANTUNEZ, is a 52 F who presents to the office today for surgical treatment of suspected left breast cancer. Patient developed chest pain shortness of breath. She went to the [facility] emergency room. She was evaluated by Dr. Ordonez. EKG was unremarkable chest x-ray suggested right middle lobe infiltrate. White count was 11.2 thousand. The patient has been a chronic cigarette smoker. Up to a pack per day. Recently down to half a pack per day. Since her emergency room visit on October 09 she has not had an additional cigarette. She does not have a primary care physician. She was noted to have retraction and mass involving the left breast she also is complaining of left axillary pain. She has a palpable mass there as well. 52-year-old female. Menarche at age 19. A1. First child was born when she was 21. She did breast-feed. She has not had any previous breast biopsies. She is not on any estrogen medication. Family history is notable for 2 aunts who had breast cancer. She is being treated with oral antibiotic for her suspected pneumonia. She is discharged on Levaquin 500 g daily 7 tablets. She was instructed to follow- up with Dr. En Hernandez to establish care. Laboratory include a white count of 1.2 hemoglobin 12.5 and hematocrit of 39.8 and a platelet count 278,000. Troponin was negative. D-dimer was 2.37 with normal being less than 0.49. As a outpatient on September 30, 2017 the patient had diagnostic mammography and left breast ultrasonography. There is a 2.1 x 2.4 cm prickly mass retroareolar slightly to the left lateral left breast lesion with diffuse microcalcifications. There is a 5 x 5 mm nodule in the deep upper portion of the right breast. There is left axillary adenopathy. BI-RADS Category 5. Right breast ultrasound was obtained and there is felt to be a 3 x 4 x 2 mm cyst 1230 position right breast. An additional 4 x 5 x 3 mm retroareolar cyst. Small lymph nodes are seen in the right axillary area the largest measuring 7 x 8 x 2 mm. Left breast ultrasound shows a 2.1 x 2 x 2.1 hypoechoic irregular nodular density with shadowing 3 o'clock position left breast. 3 cm from the nipple. There is retraction of the left nipple. There is a 1.9 x 3 x 1.1 similar left axillary node. There is a second 2.4 x 1.97 x 1.3 cm left axillary node. ROS General General: Yes fatigue Exam Const General: cooperative, other (The patient demonstrates tenderness to movement of the left upper extremity) HENMT Head: normal to inspection Eyes General: appearance normal, both eyes and all related structures Neck Neck: no lymphadenopathy Chest Other: Right breast: No focal mass. No nipple discharge. No axillary or clavicular adenopathy Left breast: Significant mass 3 o'clock position periareolar. Significant retraction of the left nipple. Large mass involving left axilla. Fixed. Left axilla is tender to palpation Resp Effort AND Inspection: other (Patient has cough to deep inspiration. She has increased anterior posterio) Cardio Rate: regular rate Rhythm: regular rhythm GI Palpation: soft, no hepatosplenomegaly Skin General: no rashes or lesions noted Neuro Cranial Nerves: CN's II-XI intact bilaterally Extrem General: no calf tenderness, no clubbing, cyanosis or edema Psych Affect: normal affect Office Procedures [id number] Breast Biopsy Performed By: Procedure performed by: Arjun Granados Details: Ultrasound-guided needle core left breast 3:00 biopsy Ultrasound-guided fine-needle aspiration left axillary adenopathy Timeout and informed consent was obtained. The patient was taken to procedure room placed on the table. The left breast and axilla were prepped with Betadine. Under ultrasound guidance 1% lidocaine mixed 50-50 with 0.5% Marcaine was used as a local anesthetic. Throughout both procedures a total of 15 cc was used. Small stab incision was placed at 3 o'clock position left breast 14-gauge Monopty needle was advanced to prefire depth. Pre-fire and post fire films were obtained. Single core samples obtained. Very firm tissue was encountered actually causing some bending of the needle. A core sample was achieved. A marking clip was left in position. Pressure was held for hemostasis. Steri-Strips Telfa OpSite dressing applied. Attention was now drawn to the axilla. Large dominant lymph node identified. Under ultrasound guidance local was instilled. Then a 25-gauge needle was advanced under ultrasound guidance. Rapid crco-tby-duisr motion was performed. The patient did have tenderness in this area. Specimen was smeared out on slides. I like to do only perform the single aspiration due to the obvious clinical nature and metastatic process. Bran Granados M.D., F.A.C.S. [id number] Biopsy of Lymph Node Performed By: Procedure performed by: Bonnie Details: See other procedure note Procedure Time Out Time Out Informed consent given: Yes Consent signed: Yes Time out checklist: patient, procedure, site marked/identified, positioning of patient, supplies available, allergies confirmed, team agrees on procedure Time out satff in room: Yes Time out verified: Yes Time out date: 10/12/17 Time out time: 07:50 Assessment AND Plan 1. Axillary adenopathy R59.0 2. Left breast mass N63.20 Plan I have expedited the patient's care by doing a needle core biopsy of her left breast mass and a fine aspiration of the left axillary adenopathy. Findings are very highly suspicious for left breast cancer with metastatic left axillary disease. I have breech this topic with the patient and her . I am recommending medical oncology referral for preoperative treatment. I am also recommending a chest CT scan as the patient still is having pulmonary symptoms. She was tentatively diagnosed as having a right mid lobe pneumonia. We will tentatively also arrange for a right internal jugular port placement. She has had an opportunity to ask and have questions answered. She will have further surgical follow- up to discuss pathology. As noted we will make the medical oncology referral simply to expedite her treatment at this point. The patient requests oncology care via the hospital and I will refer her to CC: Dr AYALA and Dr Roula Granados M.D., F.A.C.S. Plan Detail Other Orders Orders: [id number] Breast Biopsy Today N63.0, N64.53, R59.9 69176 Biopsy of Lymph Node Today R59.9 Chest WITH Contrast Today J18.9, N63.0, R59.9 Coding Level of Care Code Off vis,new,level 3 Diagnoses Axillary adenopathy R59.0 Left breast mass N63.20 10/12/17 0905<Electronically signed by Bran Granados MD> Date Bran Granados MD Exam Const General: cooperative, no acute distress HENSC Head: normal to inspection Eyes General: appearance normal, both eyes and all related structures Neck Neck: normal visual inspection Chest Other: Left breast mass lateral to the areola with retraction of the left nipple and left axillary mass as noted Resp Auscultation: clear to auscultation bilaterally Other: Increased anterior posterior diameter. Cardio Rate: regular rate Rhythm: regular rhythm GI Palpation: soft, no hepatosplenomegaly Neuro Cranial Nerves: CN's II-XI intact bilaterally Extrem General: no calf tenderness Psych Affect: normal affect Assessment AND Plan 1. Primary cancer of left female breast C50.912 Plan I very much appreciate the kind medical oncology consultation and care with Dr. Pak. Patient is not felt to be a surgical candidate at this time regarding her breast cancer. She is felt to be a candidate for treatment of metastatic breast cancer. I have discussed with the patient and her today recommendations to place a right internal jugular port to facilitate chemotherapy. She has had an opportunity to ask and have questions answered. She is aware of the technique, benefits, risks, alternatives. We will expedite her care and OR scheduled for tomorrow. This will facilitate her initiation of chemotherapy. Future salvage work of her left breast and axilla would be based upon her radical oncology treatment. Bran Granados M.D., F.A.C.S. cc:Dr AYALA and Dr Pak 2. Regional lymph node metastasis present C77.9 3. Bone metastases C79.51 Coding Level of Care Code Off vis,est,level 2 Diagnoses Primary cancer of left female breast C50.912 Regional lymph node metastasis present C77.9 Bone metastases C79.51 10/17/17 1629 <Electronically signed by Bran Granados MD> Date Bran Granados MD Cosigner Signature: Date (if applicable) CC: En Granados III, MD; Carolina Pak MD HISTORY AND PHYSICAL Observed: 10/17/2017 Status: F Source: SECOR EXAM 10:57 AM [facility] REPOSITORY [facility] Medical Records Department [address] [place] [address] History and Physical 10/17/17 1032 MR#: [id number] Acct: [id number] Name: LINDSAY ANTUNEZ Rep #: [id number] : 1965 52 From: Carolina Pak MD PCP: Care Physician, No Primary Status: REG RCR Y Location: OMD (1) Primary cancer of left female breast Status: Acute (2) Regional lymph node metastasis present Status: Acute (3) Bone metastases Status: Acute Subjective Date of Service:: 10/17/17 Chief Complaint: Breast cancer, newly diagnosed History of Present Illness: Patient is a 52-year-old female perimenopausal who never had screening mammographies and became aware of a painless lump in the left breast and a second lump in the left axilla in August 2017. She did not seek any medical care until October 09, 2017 when she developed chest pain and dyspnea. She was seen in [facility] emergency room, diagnosed and treated for pneumonia and referred to surgical consultation when the breast mass was noted on exam. Mammography and ultrasound examination confirmed the palpable abnormalities. On October 12, 2017 she underwent biopsies from the left breast mass and the left axilla that confirmed an invasive lobular carcinoma nuclear grade 3 ER negative, DC negative, HER-2 overexpressed 3+. On October [address] scan of the chest that showed emphysematous changes and diffuse bony lytic lesions throughout the thoracic and lumbar vertebrae and lower cervical segments, lytic lesions in humeral heads bilaterally, sternum, clavicles, left scapula and several ribs bilaterally. Her chest pain is diffuse across the front and back of the chest, is constant unrelated to exertion with relief with analgesia which she is taking [id number] in the form of Aleve. Her family history is notable for 2 maternal aunts with breast cancers but no first-degree relatives was breast cancer Power of Account Relationship Manager: No Living Will: No Health History: Cancer History Cancer: Breast cancer Social History Smoking Status Current every day smoker Allergies/Adverse Reactions: Allergy/AdvReac Type Severity Reaction Status Date / Time No Known Allergies Allergy Verified 10/17/17 09:30 Home Medications Medication Instructions Recorded Naproxen Sodium [Aleve] 10/17/17 Risk Factors Tobacco Risk Data: Tobacco Risk Smoking Status Current every day smoker Type of tobacco: Cigarettes Smokeless tobacco usage: Items/Day: Year started: Years used: Counseled to quit/cut down: Reason for no counseling performed: Reason for no pharmacotherapy: Tobacco use comments: Passive smoke exposure: Substance Risk Drug use: Caffeine use [drinks/day]: 2 Alcohol use: Type of alcohol: Drinks per day: Has patient felt the need to cut down: Has the patient been annoyed by complaints: Has the patient felt guilty about drinking: Has the patient needed an eye infusion nurse in the mornings: Comments: Review of Systems Constitutional:: Reports: Fatigue, Weight loss, Appetite change. Denies: Fever, Sweats, Chills Cardiovascular:: Reports: Dyspnea on exertion. Denies: Chest pain - No exertional chest pain, Palpitations, Orthopnea, PND, Shortness of breath Respiratory: Reports: Cough - Smoker's cough, Shortness of breath upon exertion, Wheezing. Denies: Hemoptysis, Shortness of Breath Gastrointestinal:: Denies: Abdominal pain, Nausea, Vomiting, Diarrhea, Constipation, Hematochezia Genitourinary: Reports: - - She is perimenopausal last. Last period was August 2017, had tubal ligations and in the past year or so her periods were becoming less frequent and erratic. Denies: Dysuria, Hematuria, Flank pain Musculoskeletal:: Reports: Back pain - Back pain in the scapular interscapular area and across the rib cage front and back as described in HPI. 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 Denies: Rash, Skin Changes, Wounds Neurological:: Reports: Headache - Occasional migraine headaches unchanged. Denies: Dizziness, Visual changes, Tinnitus, Hearing loss Psychiatric: Denies: Anxiety, Depression, Homicidal Ideations, Suicidal Ideations Vital Signs Height 5 ft 1.42 in Weight: 57.153 kg Weight in Pounds 126.0 lbs Pulse Ox 96 - Physical Exam General: Alert, Oriented x3, No apparent distress, - - ECOG 1 HEENT: Atraumatic, PERRLA, EOMI, Normocephalic Oropharynx:: Dry mucosa Neck:: Supple, Lymphadenopathy - Left supraclavicular and mid cervical adenopathy 1-2 cm, Trachea midline. Negative for: JVD, bilateral Cardiac:: Regular rate, Regular rhythm, Normal S1, Normal S2. Negative for: Murmur Lungs: Clear to auscultation, Diminished, Excusion symmetrical. Negative for: Rhonchi, Wheezes Abdomen:: Soft, Non-tender, Non-distended. Negative for: Hepatosplenomegaly Extremities:: Negative for: Cyanosis, Edema Neurological: Neuro grossly intact Skin:: Lesions - Innumerable cutaneous nodules and pigmented skin patches consistent with neurofibromatosis. Negative for: Rash, Petechiae, Ecchymosis Psychiatric:: Anxious, Appropriate affect, Euthymic Lymphatics:: Cervical lymphadenopathy - Left supraclavicular and mid cervical 1-2 cm, Supraclavicular lymphadenopathy, Axillary lymphadenopathy - Left axilla 3 cm lymph node mass fixed Breast:: - - Right breast no masses, Left breast nipple retracted with a 3 cm breast mass not fixed to chest wall Diagnostic Data: Chest CT September 2017 reviewed in EMR Pathology Data: Pathology reports for breast biopsy reviewed in EMR and summarized under HPI Assessment and Plan 52-year-old female, perimenopausal with stage IV invasive lobular carcinoma of the left breast (T2, N3, M1) with metastases to left axillary, left supraclavicular and left cervical lymph nodes in addition to widespread metastatic disease to bone. Disease is ER negative, DC negative, HER-2 overexpressed. Comorbid conditions COPD, active smoker, poor dentition. Plan; #1 complete staging of the extent of disease with PET CT. #2 Rule out an impending spinal cord compression with MRI total spine, noncontrast. She has widespread metastatic disease throughout the visualized vertebrae on recent CT of the chest. If there is impingement on the spinal canal will refer to radiation oncology consult. #3 Echocardiography to assess adequacy of cardiac function. #4 Baseline CBC, CMP and CA 27-29 tumor marker. #5 Pain management consult to optimize pain control. #6 Central venous access for systemic therapy scheduled with Dr. Granados. #7 Systemic therapy, I reviewed the most recent NCCN guidelines and preferred first line treatment this combination of Pertuzumab, trastuzumab and Taxotere given every 3 weeks supported with antiemetics, steroids and primary prophylaxis with Neulasta (patient has extensive metastatic disease involving bones and bone marrow with comorbid COPD making her a higher risk than average for febrile neutropenic sepsis. #8 Bisphosphonate therapy for metastatic bone disease, patient needs dental work and clearance prior. Patient was seen was her , impression and plan discussed. She asked direct questions about prognosis and goals of therapy. Her disease is incurable and goal of treatment is palliation and modest survival benefit. Lifelong treatment is anticipated. Medications: Prescriptions This Visit Medication Instructions Recorded Naproxen Sodium [Aleve] 10/17/17 Primary Care Provider: No Primary Care Phys Referring Provider: Carolina Pak MD 10/17/17 1057 <Electronically signed by Carolina Pak MD> Date Carolina Pak MD Cosigner Signature: Date (if applicable) CC: No Primary Care Physician; Carolina Pak MD; Bran Granados MD Signed ALLERGIES ALLERGIES DATE TYPE / CODE NAME / CODE REACTION SEVERITY SOURCE 10/16/2018 Drug No Known Unknown [facility] Allergy/416 Allergies/V95392 [facility] 381760(SNOM 0388(RXNORM) Repository ED CT) Drug NO KNOWN [facility] Class/25430 ALLERGIES [facility] [place] 1003(SNOMED Repository CT) ENCOUNTERS ENCOUNTERS ADMIT/DISCHARGE ACCOUNT NUMBER ADMITTING ENCOUNTER LOCATION SOURCE CLASS 10/16/2018/12/21/19 [id number] Ambulatory [facility] [address] ding:OMD Repository 10/16/2018 [id number] Ambulatory BMS[facility]: [facility] Repository 10/15/2018 [id number] Ambulatory [facility] ding:[facility] Repository 10/03/2018 [id number] Ambulatory [facility]: [place] [facility] Repository 10/01/2018 [id number] Ambulatory [facility] ding:MRI Repository 09/26/2018 [id number] Ambulatory [facility] ding:RAD Repository 09/26/2018 [id number] Ambulatory BMS[facility]: [facility] Repository 09/11/2018 [id number] Ambulatory [facility]: [place] [facility] Repository 09/04/2018 [id number] Ambulatory [facility] ding:[facility] Repository 09/04/2018 [id number] Ambulatory [facility]: [place] [facility] Repository 09/04/2018 [id number] Ambulatory BMS[facility]: [facility] Repository 08/28/2018 [id number] Ambulatory [facility] ding:RAD Repository 08/28/2018 [id number] Ambulatory [facility]: [place] [facility] Repository 08/20/2018 [id number] Ambulatory [facility]: [place] [facility] Repository 08/15/2018 [id number] Ambulatory [facility]: [place] [facility] Repository 08/06/2018 [id number] Ambulatory BMSBuilding: [facility] Repository 08/02/2018 [id number] Ambulatory [facility] ding:CT Repository 07/31/2018 [id number] Ambulatory [facility] ding:NM Repository 07/30/2018 [id number] Ambulatory [facility]: [place] [facility] Repository 07/26/2018 [id number] Ambulatory [facility]: [place] [facility] Repository 07/24/2018 [id number] Ambulatory [facility] ding:[facility] Repository 07/24/2018 [id number] Ambulatory [facility]: [place] Repository 07/19/2018 [id number] Ambulatory [facility] ding:MRI Repository 07/16/2018 [id number] Ambulatory [facility]: [place] [facility] Repository 07/09/2018 [id number] Ambulatory BMSBuilding: [facility] Repository 07/02/2018 [id number] Ambulatory [facility]: [place] [facility] Repository 06/26/2018 [id number] Ambulatory [facility] ding:RAD Repository 06/18/2018 [id number] Ambulatory [facility]: [place] [facility] Repository 06/11/2018 [id number] Ambulatory [facility]: [place] [facility] Repository 06/04/2018 [id number] Ambulatory BMSBuilding: [facility] Repository 05/21/2018 [id number] Ambulatory [facility]: [place] [facility] Repository 05/15/2018 [id number] Ambulatory [facility]: [place] [facility] Repository 05/14/2018 [id number] Ambulatory BMSBuilding: [facility] Repository 05/07/2018 [id number] Ambulatory BMSBuilding: [facility] Repository 05/03/2018 [id number] Ambulatory [facility]: [place] [facility] Repository 04/30/2018 [id number] Ambulatory [facility] ding:CT Repository 04/29/2018/05/01/20 [id number] Ami, Inpatient [facility] [address] ding:[id number] Repository : EE508Wom: 1 04/29/2018 [id number] Ami, Ambulatory B[facility]Building: [place] [facility] Repository 04/29/2018 [id number] Ami, Ambulatory B[facility]Building: [place] [facility] Repository 04/29/2018 [id number] Ami, Ambulatory B[facility]Building: [place] [facility]MS.[facility] Repository 04/29/2018 [id number] Ambulatory BMSBuilding: [facility] Repository 04/26/2018 [id number] Ambulatory [facility] ding:NM Repository 04/26/2018 [id number] Ambulatory BMSBuilding: [facility] Repository 04/23/2018 [id number] Ambulatory [facility] ding:MRI Repository 04/19/2018 [id number] Ambulatory [facility]: [place] [facility] Repository 04/11/2018 [id number] Ambulatory [facility]: [place] [facility] Repository 04/10/2018 [id number] Ambulatory [facility]: [place] [facility] Repository 03/27/2018 [id number] Ambulatory [facility]: [place] [facility] Repository 03/14/2018 [id number] Ambulatory BMSBuilding: [facility] Repository 03/07/2018 [id number] Ambulatory BMSBuilding: [facility] Repository 03/01/2018 [id number] Ambulatory [facility]: [place] [facility] Repository 02/28/2018 [id number] Ambulatory BMSBuilding: [facility] Repository 02/22/2018 [id number] Ambulatory [facility]: [facility] Repository 02/20/2018 [id number] Ambulatory [facility] ding:[facility] Repository 02/20/2018 [id number] Ambulatory [facility]: [facility] Repository 02/20/2018 [id number] Ambulatory BMSBuilding: [place] [facility] Repository 02/20/2018 [id number] Ambulatory BMSBuilding: [facility] Repository 02/20/2018 [id number] Ambulatory [facility] ding:[facility] Repository 02/13/2018 [id number] Ambulatory BMS[facility]: [place] [facility] Repository 02/09/2018 [id number] Ambulatory Building:CT2 [facility] Repository 02/07/2018 [id number] Ambulatory BMSBuilding: [facility] Repository 01/29/2018 [id number] Ambulatory Building:[facility] Repository 01/29/2018 [id number] Ambulatory [facility] ding:MRI Repository 01/17/2018 [id number] Ambulatory BMSBuilding: [facility] Repository 12/27/2017 [id number] Ambulatory [facility]Building: [place] [facility] Repository 12/20/2017 [id number] Ambulatory BMSBuilding: [facility] Repository 12/20/2017 [id number] Ambulatory [facility] ding:LAB.FUT Repository URE 11/27/2017 [id number] Ambulatory BMSBuilding: [facility] Repository 11/24/2017/11/25/19 [id number] Ambulatory [address] Repository 11/24/2017/11/28/19 [id number] Ambulatory [address] Repository 11/17/2017 [id number] Ambulatory Building:[facility] Repository 11/16/2017 [id number] Ambulatory Building:CT2 [facility] Repository 11/16/2017 [id number] Ambulatory Building:CT2 [facility] Repository 11/15/2017 [id number] Ambulatory Building:CT2 [facility] Repository 11/14/2017 [id number] Ambulatory Building:CT2 [facility] Repository 11/13/2017 [id number] Ambulatory BMSBuilding: [facility] Repository 11/03/2017 [id number] Ambulatory Building:CT2 [facility] Repository 11/03/2017 [id number] Ambulatory Building:CT2 [facility] Repository 11/03/2017 [id number] Ambulatory Building:MRI [facility] Repository 11/03/2017 [id number] Ambulatory Building:CT2 [facility] Repository 11/02/2017 [id number] Ambulatory BMSBuilding: [facility] Repository 10/30/2017 [id number] Ambulatory [facility] ding:NM Repository 10/27/2017 [id number] Ambulatory [facility] ding:CT Repository 10/26/2017 [id number] Ambulatory BMSBuilding: [facility] Repository 10/26/2017 [id number] Ambulatory BMSBuilding: [facility] Repository 10/25/2017 [id number] Ambulatory [facility] ding:CT Repository 10/23/2017 [id number] Ambulatory [facility] ding:RAD Repository 10/20/2017 [id number] Ambulatory [facility] ding:MRI Repository 10/20/2017 [id number] Ambulatory [facility] ding:CVS Repository 10/20/2017 [id number] Ambulatory BMSBuilding: [facility] Repository 10/19/2017 [id number] Ambulatory BMSBuilding: [facility]rystal BMS.Formerly [facility], [facility] Repository 10/18/2017/10/18/19 [id number] Ambulatory [place] ding:SDC Repository 10/18/2017 [id number] Ambulatory BMSBuilding: [facility]rystal BMS.CF.[facility] Repository 10/17/2017/10/17/19 [id number] Ambulatory BMSBuilding: Krystal 18 BMS.[facility] Repository 10/17/2017 [id number] Ambulatory BMSBuilding: [facility] BMS.Formerly [facility], [facility] Repository PAYERS PAYERS ENCOUNTER GUARANTOR PAYER SUBSCRIBER SOURCE 10/16/2018 DANNY Velascooster [id number] Insurance:CARESOURCEPo MIDDLETONDOB: [facility] licy Number: [id number], [place] [id number] Repository 13173Ord: (330) Date:2017-10-16[phone] (HP) 4430ATTN: [place] [address]NZ: 10/16/2018 Secondary NOT GIVENUNK Krystal Insurance:SELF PAY [facility] Number: Effective Repository Date:2017-10-16 10/16/2018 DANNY S Primary LINDSAY DAOTON813 Insurance:CARESOURCEPo BELLEVUEDOB: [facility] licy Number: [id number], [place] [id number] Repository 60326Btw: (330) Date:2017-10-16[phone] (HP) 3230ATTN: [place] [address]PU: 10/16/2018 Secondary NOT GIVENUNK [place] Insurance:SELF PAY [facility] Number: Effective Repository Date:2018-10-16 10/15/2018 DANNY S Primary LINDSAY DAOTON813 Insurance:CARESOURCEPo [facility] lic Number: [id number], [place] [id number] Repository 30114Blw: (330) Date:2018-10-03 [phone] (HP) 8730ATTN: [place] [address]NO: 10/15/2018 Secondary NOT GIVENUNK Krystal Insurance:SELF PAY [facility] Number: Effective Repository Date:2018-10-03 10/03/2018 DANNY Jack Primary LINDSAY DAOTON813 Insurance:CARESOURCEPo BELLEVUEDOB: [facility] lic Number: [id number], [place] [id number] Repository 95225Zjn: (330) Date:2017-10-16[phone] (HP) 8730ATTN: [place] [address]TS: 10/03/2018 Secondary NOT GIVENUNK [place] Insurance:SELF PAY [facility] Number: Effective Repository Date:2018-10-03 10/01/2018 DANNY Jack Primary LINDSAY DAOTON813 Insurance:CARESOURCEPo [facility] lic Number: [id number], [place] [id number] Repository 75170Ted: (330) Date:2018-08-14[phone] (HP) 8730ATTN: [place] [address]EF: 10/01/2018 Secondary NOT GIVENUNK [place] Insurance:SELF PAY [facility] Number: Effective Repository Date:2018-08-14 09/26/2018 DANNY Jack Primary LINDSAY Rice [id number] Insurance:CARESOURCEPo MIDDLETONDOB: [facility] lic Number: [id number], [place] [id number] Repository 63467Fmd: (330) Date:2018-09-26[phone] (HP) 8730ATTN: [place] [address]JT: 09/26/2018 Secondary NOT GIVENUNK [place] Insurance:SELF PAY [facility] Number: Effective Repository Date:2018-09-26 09/26/2018 DANNY Jack Primary LINDSAY Rice [id number] Insurance:CARESOURCEPo [facility] lic Number: [id number], [place] [id number] Repository 86925Ykm: (330) Date:2017-10-16[phone] (HP) 8730ATTN: [place] [address]WG: 09/26/2018 Secondary NOT GIVENUNK K[place] Insurance:SELF PAY [facility] Number: Effective Repository Date:2018-09-26 09/11/2018 DANNY Jack Primary LINDSAY DAOTON813 Insurance:CARESOURCEPo [facility]: [facility] licy Number: [id number], [place] [id number] Repository 22754Rhh: (330) Date:2017-10-16[phone] (HP) 8043ATTN: [place] [address]TO: 09/11/2018 Secondary NOT GIVENUNK [place] Insurance:SELF PAY [facility] Number: Effective Repository Date:2018-09-11 09/04/2018 DANNY Jack Primary LINDSAY [id number] Insurance:CARESOURCEPo BELLEVUEDOB: [facility] licy Number: [id number], [place] [id number] Repository 83851Dao: (330) Date:2018-08-28[phone] (HP) 7213ATTN: [place] [address]FW: 09/04/2018 Secondary NOT GIVENUNK [place] Insurance:SELF PAY [facility] Number: Effective Repository Date:2018-08-28 09/04/2018 DANNY Jack Primary LINDSAY Rice [id number] Insurance:CARESOURCEPo BELLEVUEDOB: [facility] licy Number: [id number], [place] [id number] Repository 57034Jfp: (330) Date:2017-10-[phone] (HP) 3160ATTN: [place] [address]FQ: 09/04/2018 Secondary NOT GIVENUNK [place] Insurance:SELF PAY [facility] Number: Effective Repository Date:2018-09-04 09/04/2018 DANNY Jack Primary LINDSAY DAOTON813 Insurance:CARESOURCEPo BELLEVUEDOB: [facility] licy Number: [id number], [place] [id number] Repository 00553Iap: (330) Date:2017-10-[phone] (HP) 2048ATTN: [place] [address]VJ: 09/04/2018 Secondary NOT GIVENUNK [place] Insurance:SELF PAY [facility] Number: Effective Repository Date:2018-09-04 08/28/2018 DANNY Jack Primary LINDSAY Rice [id number] Insurance:CARESOURCEPo [facility]: [facility] licy Number: [id number], [place] [id number] Repository 04656Zni: (330) Date:2018-08-28[phone] (HP) 7204ATTN: [place] [address]WT: 08/28/2018 Secondary NOT GIVENUNK [place] Insurance:SELF PAY [facility] Number: Effective Repository Date:2018-08-28 08/28/2018 DANNY Jack Primary LINDSAY Rice [id number] Insurance:CARESOURCEPo BELLEVUEDOB: [facility] licy Number: [id number], [place] [id number] Repository 20808Oid: (330) Date:2017-10-16 [phone] (HP) 2968ATTN: [place] [address]HW: 08/28/2018 Secondary NOT GIVENUNK [place] Insurance:SELF PAY [facility] Number: Effective Repository Date:2018-08-28 08/20/2018 DANNY Jack Primary LINDSAY Rice [id number] Insurance:CARESOURCEPo BELLEVUEDOB: [facility] licy Number: [id number], [place] [id number] Repository 41645Bnc: (330) Date:2017-10-16[phone] (HP) 5752ATTN: [place] [address]JF: 08/20/2018 Secondary NOT GIVENUNK [place] Insurance:SELF PAY [facility] Number: Effective Repository Date:2018-08-20 08/15/2018 DANNY Jack Primary LINDSAY Rice [id number] Insurance:CARESOURCEPo [facility]: [facility] licy Number: [id number], [place] [id number] Repository 09407Sii: (330) Date:2017-10-16[phone] (HP) 1701ATTN: [place] [address]JM: 08/15/2018 Secondary NOT GIVENUNK [place] Insurance:SELF PAY [facility] Number: Effective Repository Date:2018-08-15 08/06/2018 DANNY Jack Primary LINDSAY Rice [id number] Insurance:CARESOURCEPo [facility]LEVUEDOB: [facility] Number: [id number], [place] [id number] Repository 65218Tlp: (330) Date:2017-10-16[phone] (HP) 3716ATTN: [place] [address]QU: 08/06/2018 Secondary NOT GIVENUNK [place] Insurance:SELF PAY [facility] Number: Effective Repository Date:2018-08-06 08/02/2018 DANNY Jack Primary LINDSAY Rice [id number] Insurance:CARESOURCEPo BELLEVUEDOB: [facility] Number: [id number], [place] [id number] Repository 26314Auo: (330) Date:2018-07-26[phone] (HP) 0285ATTN: [place] [address]LB: 08/02/2018 Secondary NOT GIVENUNK [place] Insurance:SELF PAY [facility] Number: Effective Repository Date:2018-07-26 07/31/2018 DANNY Jack Primary LINDSAY Rice [id number] Insurance:CARESOURCEPo BELLEVUEDOB: [facility] lic Number: [id number], [place] [id number] Repository 81579Nmz: (330) Date:2018-07-26[phone] (HP) 2273ATTN: [place] [address]KP: 07/31/2018 Secondary NOT GIVENUNK [place] Insurance:SELF PAY [facility] Number: Effective Repository Date:2018-07-26 07/30/2018 DANNY Jack Primary LINDSAY Rice [id number] Insurance:CARESOURCEPo [facility]: [facility] licy Number: [id number], [place] [id number] Repository 95410Jwt: (330) Date:2017-10-16[phone] (HP) 0287ATTN: [place] [address]CL: 07/30/2018 Secondary NOT GIVENUNK [place] Insurance:SELF PAY [facility] Number: Effective Repository Date:2018-07-30 07/26/2018 DANNY Jack Primary LINDSAY Rice [id number] Insurance:CARESOURCEPo BELLEVUEDOB: [facility] licy Number: [id number], [place] [id number] Repository 46104Xgq: (330) Date:2017-10-[phone] (HP) 8758ATTN: [place] [address]YO: 07/26/2018 Secondary NOT GIVENUNK [place] Insurance:SELF PAY [facility] Number: Effective Repository Date:2018-07-26 07/24/2018 DANNY Jack Primary LINDSAY Rice [id number] Insurance:CARESOURCEPo BELLEVUEDOB: [facility] licy Number: [id number], [place] [id number] Repository 06055Zfn: (330) Date:2018-07-16[phone] (HP) 0425ATTN: [place] [address]CJ: 07/24/2018 Secondary NOT GIVENUNK [place] Insurance:SELF PAY [facility] Number: Effective Repository Date:2018-07-16 07/24/2018 DANNY Jack Primary LINDSAY Rice [id number] Insurance:CARESOURCEPo [facility] licy Number: [id number], [place] [id number] Repository 29432Asn: (330) Date:2018-07-16[phone] (HP) 0630ATTN: [place] [address]HW: 07/24/2018 Secondary NOT GIVENUNK [place] Insurance:SELF PAY [facility] Number: Effective Repository Date:2018-07-24 07/19/2018 DANNY Jack Primary LINDSAY Rice [id number] Insurance:CARESOURCEPo [facility] Number: [id number], [place] [id number] Repository 06362Pet: (330) Date:2018-04-10[phone] (HP) 5133ATTN: [place] [address]RI: 07/19/2018 Secondary NOT GIVENUNK [place] Insurance:SELF PAY [facility] Number: Effective Repository Date:2018-04-10 07/16/2018 DANNY Jack Primary LINDSAY Rice [id number] Insurance:CARESOURCEPo [facility] Number: [id number], [place] [id number] Repository 89050Hfj: (330) Date:2017-10-16[phone] (HP) 0625ATTN: [place] [address]WM: 07/16/2018 Secondary NOT GIVENUNK [place] Insurance:SELF PAY [facility] Number: Effective Repository Date:2018-07-16 07/09/2018 DANNY Jack Primary LINDSAY Rice [id number] Insurance:CARESOURCEPo BELLEVUEDOB: [facility] Number: [id number], [place] [id number] Repository 09176Ftf: (330) Date:2017-10-16[phone] (HP) 0130ATTN: [place] [address]DC: 07/09/2018 Secondary NOT GIVENUNK [place] Insurance:SELF PAY [facility] Number: Effective Repository Date:2018-07-09 07/02/2018 DANNY S Primary LINDSAY Rice [id number] Insurance:CARESOURCEPo BELLEVUEDOB: [facility] licy Number: [id number], [place] [id number] Repository 22947Nul: (330) Date:2017-10-16[phone] (HP) 4094ATTN: [place] [address]KD: 07/02/2018 Secondary NOT GIVENUNK [place] Insurance:SELF PAY [facility] Number: Effective Repository Date:2018-07-02 06/26/2018 DANNY Guero Primary LINDSAY Rice [id number] Insurance:CARESOURCEPo BELLEVUEDOB: [facility] Number: [id number], [place] [id number] Repository 38460Szx: (330) Date:2018-06-26[phone] (HP) 8730ATTN: [place] [address]IB: 06/26/2018 Secondary NOT GIVENUNK [place] Insurance:SELF PAY [facility] Number: Effective Repository Date:2018-06-26 06/18/2018 DANNY S Primary LINDSAY Rice [id number] Insurance:CARESOURCEPo [facility] Number: [id number], [place] [id number] Repository 08467Xbf: (330) Date:2017-10-16[phone] (HP) 8730ATTN: [place] [address]FD: 06/18/2018 Secondary NOT GIVENUNK [place] Insurance:SELF PAY [facility] Number: Effective Repository Date:2018-06-18 06/11/2018 DANNY Jack Primary LINDSAY [id number] Insurance:CARESOURCEPo [facility] Number: [id number], [place] [id number] Repository 53351Czh: (330) Date:2017-10-16[phone] (HP) 2651ATTN: [place] [address]OG: 06/11/2018 Secondary NOT GIVENUNK [place] Insurance:SELF PAY [facility] Number: Effective Repository Date:2018-06-11 06/04/2018 DANNY Jcak Primary LINDSAY Rice [id number] Insurance:CARESOURCEPo [facility] Number: [id number], [place] [id number] Repository 79840Blf: (198) Date:2017-10-16[phone] (HP) 3509ATTN: [place] [address]ME: 06/04/2018 Secondary NOT GIVENUNK [place] Insurance:SELF PAY [facility] Number: Effective Repository Date:2018-06-04 05/21/2018 DANNY Jack Primary LINDSAY Rice [id number] Insurance:BUCKEYE MIDDLETONDOB: [facility] [id number], [place] PLANCura[facility] Number: Repository 83367Zbt: (247) [id number] [phone] Date:6666-68-34[address]BRIGHAM AND WOMEN'S HOSPITALANIRUDH CARUSO [address]GD: 05/21/2018 Secondary NOT GIVENUNK [place] Insurance:SELF PAY [facility] Number: Effective Repository Date:2018-05-21 05/15/2018 DANNY Jack Primary LINDSAY [id number] Insurance:BUCKEYE MIDDLETONDOB: [facility] [id number], [place] PLANPolicy Number: Repository 14780Nig: 330 [id number] [phone] (HP) Date:0333-48-32HA [address] [place] [address] 89478OQ: 05/15/2018 Secondary NOT GIVENUNK [place] Insurance:SELF PAY [facility] Number: Effective Repository Date:2018-05-15 05/14/2018 DANNY S Primary LINDSAY M [place] [id number] Insurance:LEESA [facility] CENTR[facility] CONNECTICUTJAGRUTI: [facility] [id number], [place] PLANPolicy Number: Repository 61089Sjw: 330 [id number] [phone] (HP) Date:8583-53-94CP [address] [place] [address] 41905IO: 05/14/2018 Secondary NOT GIVENUNK [place] Insurance:SELF PAY [facility] Number: Effective Repository Date:2018-05-14 05/07/2018 DANNY S Primary LINDSAY M [place] [id number] Insurance:LEESA PRABHAKAR: [facility] [id number] Hospital CenterPolicy Number: Repository 62974Zgf: 330 [id number] [phone] (HP) Date:2845-23-70[address] [place] [address] 51786AD: 05/07/2018 Secondary NOT GIVENUNK [place] Insurance:SELF PAY [facility] Number: Effective Repository Date:2018-05-07 05/03/2018 DANNY S Primary LINDSAY M [place] [id number] Insurance:LEESA MORTON: [facility] [id number] Hospital CenterPolicy Number: Repository 38241Mpw: 330 [id number] [phone] (HP) Date:9459-83-37WH [address] [place] [address] 35351ZA: 05/03/2018 Secondary NOT GIVENUNK [place] Insurance:SELF PAY [facility] Hospital Number: Effective Repository Date:2018-05-03 04/30/2018 DANNY Jack Primary LINDSAY Rice [id number] Insurance:MEDICAL BELLEVUEDOB: [facility] [id number], [place] Number: Repository 02245Lby: (709) [id number] [phone] (HP) Date:4656-12-02KJ [address] [place] [address]YN: 04/30/2018 Secondary LINDSAY M K[place] Insurance:CHEMO BELLEVUEDOB: [facility] [id number] Hospital Number: Repository [id number] Date:2018-04-11 04/30/2018 Tertiary NOT GIVENUNK [place] Insurance:SELF PAY [facility] Hospital Number: Effective Repository Date:2018-04-11 04/29/2018 DANNY Jack Primary LINDSAY M [place] [id number] Insurance:[facility]: [facility] [id number] Hospital CenterPolicy Number: Repository 27851Qnn: (368) [id number] [phone] (HP) Date:6136-30-31ON [address] [place] [address] 83694RB: 04/29/2018 Secondary LINDSAY M [place] Insurance:CHEMO BELLEVUEDOB: [facility] [id number] Hospital Number: Repository [id number] Date:2018-04-29 04/29/2018 Tertiary NOT GIVENUNK [place] Insurance:SELF PAY [facility] Hospital Number: Effective Repository Date:2018-04-29 04/29/2018 DANNY Jack Primary LINDSAY M [place] [id number] Insurance:[facility]: [facility] [id number], [place] PLANPolicy Number: Repository 60397Zgp: (816) [id number] [phone] (HP) Date:6251-65-06GO [address] [place] [address] 78111MF: 04/29/2018 Secondary NOT GIVENUNK [place] Insurance:SELF PAY [facility] Number: Effective Repository Date:2018-04-29 04/29/2018 DANNY Jack Primary LINDSAY [id number] Insurance:[facility]: [facility] [id number], [place] PLANPolicy Number: Repository [id number]: 330 [id number] [phone] (HP) Date:1161-46-51WF [address] [place] [address] 06888BM: 04/29/2018 Secondary NOT GIVENUNK [place] Insurance:SELF PAY [facility] Number: Effective Repository Date:2018-04-29 04/29/2018 DANNY Jack Primary LINDSAY Rice [id number] Insurance:[facility]: [facility] [id number] Hospital CenterPolicy Number: Repository 06923Gwt: 330 [id number] [phone] (HP) Date:3510-81-94CC [address] [place] [address] 27559XO: 04/29/2018 Secondary NOT GIVENUNK [place] Insurance:SELF PAY [facility] Number: Effective Repository Date:2018-04-29 04/29/2018 DANNY Jack Primary LINDSAY [id number] Insurance:[facility]: [facility] [id number] Hospital CenterPolicy Number: Repository 88732Fgk: 330 [id number] [phone] (HP) Date:9162-90-03BV [address] [place] [address] 24525CR: 04/29/2018 Secondary NOT GIVENUNK [place] Insurance:SELF PAY [facility] Number: Effective Repository Date:2018-04-29 04/26/2018 DANNY Jack Primary LINDSAY Rice [id number] Insurance:[facility]: [facility] [id number], [place] PLANPolicy Number: Repository 65098Bvh: (164) [id number] [phone] (HP) Date:6153-23-67JB [address] [place] [address] 08307GR: 04/26/2018 Secondary LINDSAY M [place] Insurance:CHEMO MIDDLETONDOB: [facility] [id number] Hospital Number: Repository [id number] Date:2018-04-11 04/26/2018 Tertiary NOT GIVENUNK [place] Insurance:SELF PAY [facility] Hospital Number: Effective Repository Date:2018-04-11 04/26/2018 DANNY S Primary LINDSAY M [place] [id number] Insurance:BUCKEYE BELLEVUEDOB: [facility] [id number], [place] PLANPolicy Number: Repository 08240Zxj: 330 [id number] [phone] (HP) Date:7955-64-75JF [address] [place] [address] 94656PI: 04/26/2018 Secondary LINDSAY M K[place] Insurance:CHEMO MIDDLETONDOB: [facility] [id number] Hospital Number: Repository [id number] Date:2018-04-11 04/26/2018 Tertiary NOT GIVENUNK [place] Insurance:SELF PAY [facility] Hospital Number: Effective Repository Date:2018-04-26 04/23/2018 DANNY Jack Primary LINDSAY M K[place] [id number] Insurance:MEDICAIDPoli BELLEVUEDOB: [facility] Number: [id number], [place] [id number] Repository 26959Xdx: 330) Date:2018-04-19 [phone] () 04/23/2018 Secondary LINDSAY M [place] Insurance:CHEMO MIDDLETONDOB: [facility] [id number] Hospital Number: Repository [id number] Date:2018-04-19 04/23/2018 Tertiary NOT GIVENUNK [place] Insurance:SELF PAY [facility] Number: Effective Repository Date:2018-04-19 04/19/2018 DANNY Jack Primary LINDSAY Rice [id number] Insurance:MEDICAIDPolRegional Medical CenterB: [facility] Number: [id number], [place] [id number] Repository 97601Xna: (877) Date:2018-04-19 [phone] (HP) 04/19/2018 Secondary NOT GIVENUNK [place] Insurance:SELF PAY [facility] Hospital Number: Effective Repository Date:2018-04-19 04/11/2018 DANNY Jack Primary LINDSAY Rice [id number] Insurance:MEDICAL BELLEVUEDOB: [facility] [id number], [place] Number: Repository [id number]: (930) [id number] [phone] (HP) Date:2570-52-56BI[address] [address]PR: 04/11/2018 Secondary NOT GIVENUNK [place] Insurance:SELF PAY [facility] Number: Effective Repository Date:2018-04-11 04/10/2018 DANNY Jack Primary LINDSAY Rice [id number] Insurance:MEDICAL BELLEVUEDOB: [facility] [id number], [place] Number: Repository 24615Arx: (841) [id number] [phone] (HP) Date:4941-45-73CB[address] [address]QS: 04/10/2018 Secondary LINDSAY M K[place] Insurance:CHEMO MIDDLETONDOB: [facility] [id number] Hospital Number: Repository [id number] Date:2017-10-16 04/10/2018 Tertiary NOT GIVENUNK [place] Insurance:SELF PAY [facility] Hospital Number: Effective Repository Date:2018-04-10 03/27/2018 DANNY Jack Primary LINDSAY Rice [id number] Insurance:MEDICAL BELLEVUEDOB: [facility] [id number], [place] Number: Repository 40100Qjw: (573) [id number] [phone] (HP) Date:4079-74-15OL [address] [address]GG: 03/27/2018 Secondary NOT GIVENUNK [place] Insurance:SELF PAY [facility] Number: Effective Repository Date:2018-03-27 03/14/2018 DANNY Jack Primary LINDSAY Rice [id number] Insurance:MEDICAL [facility]: [facility] [id number], [place] Number: Repository 14438Gnr: (506) [id number] [phone] (HP) Date:1460-97-59XI[address] [address]RS: 03/14/2018 Secondary NOT GIVENUNK [place] Insurance:SELF PAY [facility] Number: Effective Repository Date:2018-03-14 03/07/2018 DANNY S Primary LINDSAY M Krystal [id number] Insurance:MEDICAL [facility]: [facility] [id number], [place] Number: Repository 53742Vmw: 330 [id number] [phone] (HP) Date:[id number] [address]QA: 03/07/2018 Secondary NOT GIVENUNK Crawley Insurance:SELF PAY [facility] Number: Effective Repository Date:2018-03-07 03/01/2018 DANNY S Primary LINDSAY Rice [id number] Insurance:[facility] [id number], [place] Number: Repository [id number]: [phone] [id number] [phone] (HP) Date:[id number] [address]ND: 03/01/2018 Secondary LINDSAY M Crawley Insurance:CARESOURCEPo [facility] Number: [id number] [place] [address] [id number] Repository Date:2018-03-01[address]ATTN: [place] [address]KJ: 03/01/2018 Tertiary NOT GIVENUNK Crawley Insurance:SELF PAY [facility] Number: Effective Repository Date:2018-03-01 02/28/2018 DANNY Jcak Primary LINDSAY Rice [id number] Insurance:[facility] [id number], [place] Number: Repository [id number]: [phone] [id number] [phone] (HP) Date:6972-22-32WK [address] [address]NC: 02/28/2018 Secondary NOT GIVENUNK Crawley Insurance:SELF PAY [facility] Number: Effective Repository Date:2018-02-28 02/22/2018 DANNY Jack Primary LINDSAY Rice [id number] Insurance[facility] 7102[place] Number: Repository [address]Krj: (445) [id number] [phone] (HP) Date:3952-47-93IT[address] [address]KL: 02/22/2018 Secondary NOT GIVENUNK Crawley Insurance:SELF PAY [facility] Number: Effective Repository Date:2018-02-22 02/20/2018 DANNY Jack Primary LINDSAY Rice [id number] Insurance:[facility] 9332-04-89[place]os[place] Number: Repository [address]Hnu: (424) [id number] [phone] (HP) Date:6121-69-16IY [address] [address]CA: 02/20/2018 Secondary LINDSAY Dereck Rice Insurance:CHEMO BELLEVUEDOB: [facility] [id number] Hospital Number: Repository [id number] Date:2018-02-20 02/20/2018 Tertiary NOT GIVENUNK Crawley Insurance:SELF PAY [facility] Hospital Number: Effective Repository Date:2018-02-20 02/20/2018 DANNY Jack Primary LINDSAY Harden Crawley [id number] Insurance:MEDICAL MIDDLETONDOB: [facility] 5797-90-47[place] Number: Repository [address]Mou: (342) [id number] [phone] (HP) Date:0045-87-26WI [address] [address]YR: 02/20/2018 Secondary LINDSAY M Krystal Insurance:CHEMO MIDDLETONDOB: [facility] [id number] Hospital Number: Repository [id number] Date:2018-02-20 02/20/2018 Tertiary NOT GIVENUNK Krystal Insurance:SELF PAY [facility] Hospital Number: Effective Repository Date:2018-02-20 02/20/2018 DANNY Jack Primary LINDSAY M Crawley [id number] Insurance:MEDICAL MIDDLETONDOB: [facility] 1547-53-68[place] Number: Repository [address]Nge: 330 [id number] [phone] (HP) Date:6018-92-57VF [address] [address]TR: 02/20/2018 Secondary LINDSAY M Krystal Insurance:CHEMO MIDDLETONDOB: [facility] [id number] Hospital Number: Repository [id number] Date:2018-02-20 02/20/2018 Tertiary NOT GIVENUNK Krystal Insurance:SELF PAY [facility] Hospital Number: Effective Repository Date:2018-02-20 02/20/2018 DANNY Jack Primary LINDSAY M Krystal [id number] Insurance:MEDICAL MIDDLETONDOB: [facility] 7658-48-10VEUMosheim[place] Number: Repository [address]Mck: (978) [id number] [phone] (HP) Date:8846-02-87NN [address] [address]BE: 02/20/2018 Secondary NOT GIVENUNK Krystal Insurance:SELF PAY [facility] Number: Effective Repository Date:2018-02-20 02/20/2018 DANNY Jack Primary LINDSAY Rice [id number] Insurance:[facility]: [facility] 3216-80-26IHXMosheim[place] Number: Repository [address]Oza: [id number] [phone] (HP) Date:7526-20-57AJ [address] [place] [address]JK: 02/20/2018 Secondary LINDSAY M Krystal Insurance:CARESOURCEPo BELLEVUEDOB: [facility] Number: [id number] Hospital [id number] Repository Date:2017-12-24[address]ATTN: [place] [address]PX: 02/20/2018 Tertiary LINDSAY M Krystal Insurance:CHEMO BELLEVUEDOB: [facility] [id number] Hospital Number: Repository [id number] Date:2018-02-07 02/20/2018 Tertiary NOT GIVENUNK Krystal Insurance:SELF PAY [facility] Number: Effective Repository Date:2018-02-07 02/13/2018 DANNY Jack Primary LINDSAY Rice [id number] Insurance:[facility] [id number], [place] Number: Repository [address]Sqb: ([phone]) [id number] [phone] (HP) Date:1063-39-41MR [address] [place] [address]XK: 02/13/2018 Secondary LINDSAY M Crawley Insurance:CARESOURCEPo [facility] Number: [id number] Hospital [id number] Repository Date:2018-02-13[address]ATTN: [place] [address]XL: 02/13/2018 Tertiary NOT GIVENUNK Crawley Insurance:SELF PAY [facility] Number: Effective Repository Date:2018-02-13 02/09/2018 LINDSAY Primary LINDSAY [facility]: Insurance:[facility] [place] Number: [id number] [facility] [id number] [place], [place] Date:3943-96-68Zcwm [place] Repository [address]Bto: (330) Name:MANAGED CARE [address]Yio: (HP) [phone] (HP) 02/07/2018 DANNY Jack Primary LINDSAY Rice [place] [address] Insurance:[facility] 7921-37-45FWRMosheim, [place] Number: Repository [address]Jtf: (019) [id number] [phone] Date:8268-55-75CK [address] [place] [address]MY: 02/07/2018 Secondary LINDSAY Rice Insurance:CAREURCo [facility]: [facility] Number: [id number] Hospital [id number] Repository Date:2018-02-07[address]ATTN: [place] [address]YE: 02/07/2018 Tertiary NOT GIVENUNK Crawley Insurance:SELF PAY [facility] Number: Effective Repository Date:2018-02-07 01/29/2018 LINDSAY [facility] [place] Number: [id number] [facility] [id number], [place] Date:9237-47-64Ooyj [place] Repository [address]Wqk: (352) Name:MANAGED CARE [address]88[address]Jvu: (HP) [phone] (HP) 01/29/2018 DANNY Jack Primary LINDSAY Rice [id number] Insurance:MEDICAL MIDDLETONDOB: [facility] 2629-58-96JIJMosheim, [place] Number: Repository [address]New: (363) [id number] [phone] (HP) Date:6512-50-86UH [address] [address]BO: 01/29/2018 Secondary LINDSAY Harden Crawley Insurance:CARESOURCEPo MIDDLETONDOB: [facility] Number: [id number] Hospital [id number] Repository Date:2018-01-19 [address]ATTN: [place] [address]EP: 01/29/2018 Tertiary LINDSAY Rice Insurance:CHEMO MIDDLETONDOB: [facility] [id number] Hospital Number: Repository [id number] Date:2018-01-19 01/29/2018 Tertiary NOT GIVENUNK Crawley Insurance:SELF PAY [facility] Hospital Number: Effective Repository Date:2018-01-19 01/17/2018 Danny Jack Primary LINDSAY Rice [id number] Insurance:MEDICAL MIDDLETONDOB: [facility] [id number] Number: Repository [address]Iye: ([phone]) [id number] [phone] Date:7435-88-94FN[address] [address]HQ: 01/17/2018 Secondary LINDSAY Harden Crawley Insurance:CHEMO MIDDLETONDOB: [facility] [id number] Hospital Number: Repository [id number] Date:2017-10-16 01/17/2018 Tertiary NOT GIVENUNK Krystal Insurance:SELF PAY [facility] Hospital Number: Effective Repository Date:2018-01-17 12/27/2017 Danny Jack Primary LINDSAY Rice [id number] Insurance:MEDICAL BELLEVUEDOB: [facility] [id number] Number: Repository [address]Xyt: 330 [id number] [phone] (HP) Date:7650-25-83WU [address] [address]HW: 12/27/2017 Secondary NOT GIVENUNK Krystal Insurance:SELF PAY [facility] Hospital Number: Effective Repository Date:2017-12-27 12/20/2017 Danny S Primary LINDSAY Krystal [id number] Insurance:MEDICAL BELLEVUEDOB: [facility] [id number] Number: Repository [address]Ykm: (348) [id number] [phone] (HP) Date:5752-34-72YU [address] [address]AE: 12/20/2017 Secondary NOT GIVENUNK Krystal Insurance:SELF PAY [facility] Hospital Number: Effective Repository Date:2017-12-20 12/20/2017 Danny S Primary LINDSAY Krystal [id number] Insurance:[facility]: [facility] [id number] [facility] [place] Number: Repository [address]Dik: 330 [id number] [phone] (HP) Date:2573-47-70QU [address] [address]MF: 12/20/2017 Secondary LINDSAY Krystal Insurance:CHEMO MIDDLETONDOB: [facility] [id number] Hospital Number: Repository [id number] Date:2017-12-20 12/20/2017 Tertiary NOT GIVENUNK Krystal Insurance:SELF PAY [facility] Hospital Number: Effective Repository Date:2017-12-20 11/27/2017 Danny S Primary LINDSAY Crawley [id number] Insurance:MEDICAL BELLEVUEDOB: [facility] [id number] Number: Repository [address]Ciq: ([phone]) [id number] [phone] (HP) Date:6318-07-82QP [address] [address]TY: 11/27/2017 Secondary NOT GIVENUNK Crawley Insurance:SELF PAY [facility] Number: Effective Repository Date:2017-11-27 11/17/2017 [facility]SAY [facility] Insurance:[facility] [place] Number: [id number] [facility] [id number], [place] Date:2582-38-58Kxzo [place] Repository [address]Arh: (330) Name:MANAGED CARE 13493Loh: () [phone] () 11/16/2017 LINDSAY [facility]: Insurance:[facility] [place] Number: [id number] [facility] [id number], [place] Date:2679-95-06Zgpi [place] Repository [address]Pvc: (330) Name:MANAGED CARE [id number]: () [phone] () 11/16/2017 LINDSAY Primary [facility]: Insurance:[facility] [place] Number: [id number] [facility] [id number], [place] Date:7103-47-63Lgzs [place] Repository [address]Qbh: (330) Name:MANAGED CARE [id number]: (HP) [phone] () 11/15/2017 LINDSAY Primary [facility]: Insurance:[facility] [place] Number: [id number] [facility] [id number], [place] Date:8146-29-68Jpot [place] Repository [address]Vmz: (330) Name:MANAGED CARE [address]Gnp: (HP) [phone] (HP) 11/14/2017 LINDSAY Primary LINDSAY [facility]: Insurance:[facility] [place] Number: [id number] [facility] [id number] [place], [place] Date:2960-66-77Gkqq [place] Repository [address]Gbm: (330) Name:MANAGED CARE [id number]: (HP) [phone] (HP) 11/13/2017 Danny S Primary LINDSAY Rice [place] [address] Insurance:[facility] [id number] [place], [place] Number: Repository [address]Azg: 330 [id number] [phone] () Date:9108-34-74JO [address] [place] [address]PS: 11/13/2017 Secondary NOT GIVENUNK Krystal Insurance:SELF PAY [facility] Number: Effective Repository Date:2017-11-13 11/03/2017 LINDSAY [facility] Insurance:[facility] [place] Number: [id number] [facility] [id number], [place] Date:9163-69-23Iyhb [place], [place] Repository [address]Uke: (330) Name:MANAGED CARE [id number]: (HP) [phone] () 11/03/2017 LINDSAY Primary LINDSAY [facility]: Insurance:[facility] [place] Number: [id number] [facility] [id number], [place] Date:4119-12-58Twad [place] Repository [address]Hvn: (299) Name:MANAGED CARE 73214Kgr: (HP) [phone] (HP) 11/03/2017 LINDSAY Primary LINDSAY [facility]: Insurance:[facility] [place] Number: [id number] [facility] [id number] [place], [place] Date:7895-11-98Lisx [place] Repository [address]Zrg: (330) Name:MANAGED CARE 585[address]Zqn: (HP) [phone] (HP) 11/03/2017 LINDSAY Primary LINDSAY [facility]: Insurance:[facility] [place] Number: [id number] [facility] [id number], [place] Date:8757-82-52Gwwg [place] Repository [address]Wol: (278) Name:MANAGED CARE 82616Kwd: (HP) [phone] (HP) 11/02/2017 Danny S Primary LINDSAY Rice [place] [address] Insurance:[facility]: [facility] [id number] [place], [place] Number: Repository [address]Ldc: 330 [id number] [phone] () Date:6768-21-37YV [address] [address]FJ: 11/02/2017 Secondary NOT GIVENUNK Crawley Insurance:SELF PAY [facility] Number: Effective Repository Date:2017-11-02 10/30/2017 Danny S Primary LINDSAY Rice [place] [address] Insurance:[facility]: [facility] [id number] Falls, [place] Number: Repository [address]Iag: (162) [id number] [phone] () Date:2877-04-84QL [address] [address]VP: 10/30/2017 Secondary LINDSAY Crawley Insurance:CHEMO MIDDLETONDOB: [facility] [id number] Hospital Number: Repository [id number] Date:2017-10-25 10/30/2017 Tertiary NOT GIVENUNK Crawley Insurance:SELF PAY [facility] Number: Effective Repository Date:2017-10-25 10/27/2017 Danny Jack Primary LINDSAY Krystal [id number] Insurance:MEDICAL MIDDLETONDOB: [facility] [id number] [place], [place] Number: Repository [address]Aqf: (551) [id number] [phone] (HP) Date:6160-60-33LA [address] [address]YR: 10/27/2017 Secondary LINDSAY Krystal Insurance:CHEMO MIDDLETONDOB: [facility] [id number] Hospital Number: Repository [id number] Date:2017-10-26 10/27/2017 Tertiary NOT GIVENUNK Crawley Insurance:SELF PAY [facility] Hospital Number: Effective Repository Date:2017-10-26 10/26/2017 Danny Jack Primary LINDSAY Crawley [id number] Insurance:MEDICAL MIDDLETONDOB: [facility] [id number] [place], [place] Number: Repository [address]Pns: (337) [id number] [phone] (HP) Date:2977-61-48QK [address] [address]XU: 10/26/2017 Secondary NOT GIVENUNK Crawley Insurance:SELF PAY [facility] Hospital Number: Effective Repository Date:2017-10-26 10/26/2017 Danny Jack Primary LINDSAY Krystal [id number] Insurance:MEDICAL MIDDLETONDOB: [facility] [id number] Falls, [place] Number: Repository [address]Amx: (410) [id number] [phone] (HP) Date:1524-97-11FJ [address] [address]VY: 10/26/2017 Secondary NOT GIVENUNK Crawley Insurance:SELF PAY [facility] Hospital Number: Effective Repository Date:2017-10-26 10/25/2017 Danny Jack Primary LINDSAY Rice [id number] Insurance:[facility] [id number] [place], [place] Number: Repository [address]Uws: 330 [id number] [phone] (HP) Date:6934-30-43ZU [address] [address]ZG: 10/25/2017 Secondary NOT GIVENUNK Crawley Insurance:SELF PAY [facility] Hospital Number: Effective Repository Date:2017-10-25 10/23/2017 Danny S Primary LINDSAY Crawley [id number] Insurance:[facility] [id number] [place], [place] Number: Repository [address]Sjs: 330 [id number] [phone] (HP) Date:8518-30-58PY [address] [address]AE: 10/23/2017 Secondary NOT GIVENUNK Crawley Insurance:SELF PAY [facility] Number: Effective Repository Date:2017-10-23 10/20/2017 Danny S Primary LINDSAY Krystal [id number] Insurance:MEDICAL BELLEVUEDOB: [facility] [id number] Falls, [place] Number: Repository [address]Ubz: 330 [id number] [phone] (HP) Date:8110-80-96UZ [address] [address]DT: 10/20/2017 Secondary NOT GIVENUNK Krystal Insurance:SELF PAY [facility] Number: Effective Repository Date:2017-10-19 10/20/2017 Danny S Primary LINDSAY Krystal [id number] Insurance:MEDICAL BELLEVUEDOB: [facility] [id number] Falls, [place] Number: Repository [address]Hmh: 330 [id number] [phone] (HP) Date:0442-14-21SM [address] [address]LY: 10/20/2017 Secondary NOT GIVENUNK Krystal Insurance:SELF PAY [facility] Number: Effective Repository Date:2017-10-17 10/20/2017 Danny S Primary LINDSAY Krystal [id number] Insurance:MEDICAL [facility]HOP[facility] C[facility] CENTERD[facility]: [facility] [id number] Falls, [place] Number: Repository [address]Hak: 330 [id number] [phone] (HP) Date:8032-60-55IS [address] [address]ZW: 10/20/2017 Secondary NOT GIVENUNK Krystal Insurance:SELF PAY [facility] Number: Effective Repository Date:2017-10-20 10/19/2017 Danny S Primary LINDSAY Krystal [id number] Insurance:MEDICAL BELLEVUEDOB: [facility] [id number] [place], [place] Number: Repository [address]Iww: 330 [id number] [phone] (HP) Date:9957-97-23MY [address] [address]RC: 10/19/2017 Secondary NOT GIVENUNK Crawley Insurance:SELF PAY [facility] Number: Effective Repository Date:2017-10-19 10/18/2017 Danny S Primary LINDSAY Krystal [id number] Insurance:MEDICAL BELLEVUEDOB: [facility] 5407-93-49JBCNeosho Falls, [place] Number: Repository [address]Mym: 330 [id number] [phone] (HP) Date:9413-19-45KE [address] [address]IZ: 10/18/2017 Secondary NOT GIVENUNK Crawley Insurance:SELF PAY [facility] Number: Effective Repository Date:2017-10-12 10/18/2017 Danny S Primary LINDSAY Rice [id number] Insurance:MEDICAL BELLEVUEDOB: [facility] 6845-96-41HSINeosho Falls, [place] Number: Repository [address]Ucu: 330 [id number] [phone] (HP) Date:3959-72-83ZJ [address] [address]PF: 10/18/2017 Secondary NOT GIVENUNK Crawley Insurance:SELF PAY [facility] Number: Effective Repository Date:2017-10-18 10/17/2017 Danny S Primary LINDSAY Rice [id number] Insurance:[facility] 3446-29-69AGTLogan Regional [facility] [place] Number: Repository [address]Llc: 330 [id number] [phone] (HP) Date:5020-04-41TQ [address] [address]RZ: 10/17/2017 Secondary NOT GIVENUNK Krystal Insurance:SELF PAY [facility] Number: Effective Repository Date:2017-10-12 10/17/2017 Danny S Primary LINDSAY Rice [id number] Insurance:[facility]: [facility] [id number] [facility] Number: Repository [address]Obm: 330 [id number] [phone] (HP) Date:9522-86-00UA [address] [address]MR: 10/17/2017 Secondary NOT GIVENUNK Krystal Insurance:SELF PAY [facility] Number: Effective Repository Date:2017-10-17
== END ==
PROVIDERS: Internal Medicine Hematology & Oncology; Referring Provider Nurse Practitioner Family; Visit Provider Nurse Practitioner Family
DX: I10 Essential (primary) hypertension (principal); C50.912 Malignant neoplasm of unspecified site of left female breast; C77.9 Secondary and unspecified malignant neoplasm of lymph node, unspecified; C79.51 Secondary malignant neoplasm of bone; Z79.899 Other long term (current) drug therapy
CPT/HCPCS: 0399T; 36415; 85025; 93306

== ENCOUNTER → 2018-09-26 10:57 | Outpatient (CLI) | payer MEDICAID, SELFPAY ==
[2018-05-15 10:11] VITALS: BMI 25.3
[2018-09-26 09:31] VITALS: BMI 27.1
--- NOTE | 2018-09-26 11:03 | RAD_ITS ---
STUDY: X-RAY - LEFT FOOT CLINICAL: Female, 53 years old. Injury a few days ago, dropped a marble table top of her foot, bruising at the base of the toes TECHNIQUE: view(s) of the foot. COMPARISON: None. FINDINGS: There is a plantar calcaneal spur. Normal visualized subtalar, talonavicular, calcaneocuboid, tarsal and tarsometatarsal articulations. Normal metatarsi. Normal metatarsophalangeal joint of the great toe. Normal tibial and fibular sesamoid bones. Normal interphalangeal joint of the great toe. Normal phalanges of the great toe. Normal second through fifth metatarsophalangeal joints. Normal interphalangeal joints and phalanges of the lesser toes. Mild soft tissue swelling of the dorsal forefoot. RAD/Foot min 3 Views IMPRESSION: Dorsal forefoot soft tissue swelling without demonstrated fracture. Electronically Signed: Kristopher Ba MD at 14:27 EST , Service support ,
== END ==
PROVIDERS: Referring Provider Nurse Practitioner Family; Visit Provider Nurse Practitioner Family
DX: S99.922A Unspecified injury of left foot, initial encounter (principal)
CPT/HCPCS: 73630

== ENCOUNTER → 2018-10-01 09:57 | Outpatient (CLI) | payer MEDICAID, SELFPAY ==
[2018-05-15 10:11] VITALS: BMI 25.3
[2018-08-14 08:22] VITALS: BMI 22.8
[2018-09-26 09:31] VITALS: BMI 27.1
--- NOTE | 2018-10-01 10:02 | MRI_ITS ---
STUDY: MRI BRAIN WITH AND WITHOUT CONTRAST REASON FOR EXAM: Female, 53 years old. EVAL METS, Breast ca w/ brain mets. TECHNIQUE: Standardized multiplanar fat and water weighted pulse sequences were obtained. 7 ml of Gadavist contrast material was administered intravenously for the contrast portion of the examination. COMPARISON: July 19, 2018. Temporal bones FINDINGS: There has been mild decrease of size and number of the previously noted cerebral and cerebellar small enhancing lesions. Slightly decreased lesions are noted within the jose and midbrain as well. Normal size of the ventricles and extra-axial spaces for the patient's age. Again noted confluent periventricular white matter hyperintensities. Normal bilateral basal ganglia. Normal thalami. There is no extra-axial fluid accumulation. Normal flow voids within the major intracranial circulation suggesting patency by spin echo criteria. Normal sella turcica, pituitary gland, infundibular stalk, optic chiasm and hypothalamus. Normal tectal plate and pineal gland. There are chronic white matter ischemic changes of the jose. The midbrain and medulla are otherwise normal. There is a right mastoid fluid. MRI/Brain W/WO Contrast IMPRESSION: Decreased innumerable metastatic lesions. Electronically Signed: Catarina García MD at 10:37 EST Tel , Service support ,
== END ==
PROVIDERS: Referring Provider Student in an Organized Health Care Education/Training Program; Visit Provider Student in an Organized Health Care Education/Training Program
DX: C79.31 Secondary malignant neoplasm of brain (principal)
CPT/HCPCS: 70553; A9585

== ENCOUNTER 2018-11-09 10:59 | Inpatient (IN) | payer MEDICAID, SELFPAY ==
[2018-05-15 10:11] VITALS: BMI 25.3
[2018-11-07 10:07] VITALS: BMI 26.6
[2018-11-09 11:00] VITALS: BP 116/85; PULSE 77; RESP 16; TEMP 36.1; O2SAT 96; BMI 26.4
--- NOTE | 2018-11-09 12:19 | EKG12_ITS ---
Test Reason : N/V Blood Pressure : / mmHG Vent. Rate : 060 BPM Atrial Rate : 060 BPM P-R Int : 132 ms QRS Dur : 076 ms QT Int : 418 ms P-R-T Axes : 045 058 061 degrees QTc Int : 418 ms Normal sinus rhythm Nonspecific ST and T wave abnormality Abnormal ECG Confirmed by ALEXIS DUMONT, DIOGO ([id number]), health editor MILTON DESOUZA ([id number]) on 11/13/2018 10:35:41 AM Referred By: Omar Beauchamp Confirmed By:DIOGO ESPINOZA MD
[2018-11-09 12:49] LABS: Bacteria 0 SEEN /hpf (None Seen); Mucous, Urine 0 SEEN /hpf (<or=2+); Red Blood Cells-Urine 0 SEEN /hpf (0-5); Squamous Epithelial Cells - UA 0 SEEN /hpf (5-10)
[2018-11-09] MEDS: 0.9% Normal Saline 1,000 ML 1000 ML IV (12:50)
[2018-11-09] MEDS: Metoclopramide 10 MG/2 ML Vial IV (12:50)
[2018-11-09] MEDS: Morphine 4 MG/ML Syringe IV (12:50)
[2018-11-09 12:52] LABS: Color, Urine Yellow (Yellow); Glucose, Dipstick Normal (Normal); Ketone-Dipstick Negative (Negative); Leukocyte Esterase-Dipstick 25 /ul (Negative); Nitrite-Dipstick Negative (Negative); Occult Blood-Urine 10 /ul (Negative); Protein-Dipstick Negative (Negative); Urine Bilirubin Dipstick Negative (Negative); Urine Clarity Clear (Clear); Urine Urobilinogen Normal (Normal); Urine pH 6.5 (5.0 - 8.0)
[2018-11-09 12:55] LABS: Absolute Lymphocyte Count 0.52 X10^3/ul (0.83-4.51); Absolute Neutrophil Count 5.2 X10^3/uL (2.0-7.7); Basophil# 0.03 X10^3/uL; Basophil% 0.5 % (0-1); Eosinophil# 0.02 X10^3/uL; Eosinophils% 0.3 % (0-5); Hematocrit 38.8 % (37-47); Hemoglobin 12.5 g/dl (12.0-15.0); Lymphocyte # 0.52 X10^3/ul (4.0); Lymphocyte % 8.7 % (19-41); Mean Corp Hgb Conc 32.2 g/gl (32-36); Mean Corpuscular Hgb 32.1 pg (27.0-32.0); Mean Corpuscular Volume 99.5 fL (81-99); Mean Platelet Vol. 8.9 fl (6.2-12.0); Monocyte% 3.3 % (0-10); Neutrophil # 5.19 X10^3/uL (2.7-7.7); Neutrophil % 86.9 % (47-70); Platelet Count 232 K/mm3 (150-450); RBC Distribution Width CV 17.9 % (11.6-14.6); RBC Distribution Width SD 64.9 fl (35.1-43.9)
[2018-11-09 12:56] LABS: Differential Indicated SCAN CRITERIA MET; POSITIVE COUNT NO; POSITIVE DIFFERENTIAL YES; POSITIVE MORPHOLOGY NO
[2018-11-09 12:58] VITALS: BP 153/96; PULSE 71; RESP 20; O2SAT 95
[2018-11-09 13:07] LABS: White Blood Cells 0-5 SEEN /hpf (0-5)
[2018-11-09 13:09] LABS: Differential Comment SCANNED
[2018-11-09 13:14] LABS: ALB/GLOB Ratio 1.1 RATIO (0.9-2.4); AST(SGOT) 22 U/L (15-37); Alanine Aminotransfer ALT/SGPT 15 U/L (13-56); Alkaline Phosphatase 51 U/L (45-117); Anion Gap 9 (5-15); BUN 2 mg/dL (7-18); BUN/Creat Ratio 3.6 RATIO (10-20); Calcium,Total 8.2 mg/dL (8.5-10.1); Chloride 111 mmol/L (98-107); Creatinine, Serum 0.55 mg/dL (0.55-1.02); EST Glomerular Filtration Rate 123 mL/min (>60); Est Glom Filt Rate - Afr Amer 149 mL/min (>60); Estimated Creatinine Clearance 95.71 ml/min; Globulin 2.8 g/dL (2.2-4.2); Glucose 88 mg/dL (74-106); Lipase 96 U/L (73-393); Potassium 3.5 mmol/L (3.5-5.1); Protein, Total 5.8 g/dL (6.4-8.2); Sodium Level 144 mmol/L (136-145)
[2018-11-09 13:16] LABS: Lactic Acid 0.9 mmol/L (0.4-2.0)
[2018-11-09] MEDS: DiphenhydrAMINE 50 MG/ML Syringe 25 MG IV (13:17)
[2018-11-09 14:18] VITALS: BP 138/80; PULSE 55; RESP 18; O2SAT 99
--- NOTE | 2018-11-09 14:21 | ED.DCSUM_ITS ---
- ER Visit Summary Date of Service: 11/09/18 Chief Complaint: [Vomiting and diarrhea] History of Present Illness: The patient is a 53 F [presents the emergency department complaint of vomiting and diarrhea that has gone on for last 2 weeks. Patient is currently being treated for stage IV breast cancer with oral chemotherapy. Patient has been seen by the oncologist throughout the week and has been given IV fluids. Yesterday the patient thought that she might be doing a little bit better but today just very weak and started vomiting again. Patient denies any significant abdominal pain. She denies any fevers. She denies headache. She denies recent antibiotic usage.] Physical Examination: [HEENT-PERRLA, EOMI. Cranial nerves II through XII grossly intact. TMs clear. Mucous membranes dry. No adenopathy. Cardiovascular-regular rate and rhythm without murmur or ectopy Lungs-clear to auscultation, chest wall stable without crepitus or subcu emphysema Abdomen-normoactive bowel sounds, soft, nontender, no rebound or rigidity, no peritoneal signs. Extremities-intact ?4, normal range of motion, normal pulses, atraumatic] Test Results: [EKG obtained on arrival showed a sinus rhythm with a ventricular rate of 60 bpm with some nonspecific ST changes. CBC with differential showed a white count of 6.0, hemoglobin 12.5, hematocrit 39, placed 232. Chemistries unremarkable. BUN is 2 and creatinine 0.55. LFTs were unremarkable. Lipase was 96. Urinalysis was normal. Troponin is less than 0.015.] Emergency Department Course and Treatment: [Patient was given a liter normal same fluid bolus and given Reglan 10 mg IV as well as Benadryl 25 mg IV. ] Treatment Plan: [Admit for continued hydration and antiemetic treatment] Disposition: [Admit] Impression: [Intractable nausea vomiting Generalized weakness] This note was generated with docTrackr dictation software. It may contain incorrect words, spelling, and punctuation that were not noted in review of the chart prior to signing ED Disposition - Plan for ED Patient: Referrals: Eric Granados III, MD [Primary Care Provider] -
--- NOTE | 2018-11-09 14:49 | HP.PCM_ITS ---
Problem List (1) Stage IV carcinoma of breast Status: Chronic (2) Fatigue Status: Chronic (3) Anorexia Status: Chronic (4) Hypokalemia Status: Acute (5) Hypertension Status: Chronic Qualifiers: (6) Encounter for monitoring cardiotoxic drug therapy Status: Chronic (7) CINV (chemotherapy-induced nausea and vomiting) Status: Acute (8) Diarrhea Status: Acute (9) Intractable nausea and vomiting Status: Acute Qualifiers: (10) Nausea & vomiting Status: Acute (11) SIRS (systemic inflammatory response syndrome) Status: Acute (12) Anemia Status: Chronic (13) COPD (chronic obstructive pulmonary disease) Status: Chronic (14) History of tubal ligation Status: Chronic (15) Brain metastases Status: Chronic (16) Cerebral aneurysm Status: Chronic (17) Primary cancer of left female breast Status: Chronic (18) Regional lymph node metastasis present Status: Chronic (19) Bone metastases Status: Chronic History of Present Illness Date of Admission: 11/09/18 Chief Complaint: Nausea vomiting and diarrhea for about 3 weeks The patient is a 53 year old F with history of a stage IV CA breast, wide metastasis to brain, spine, hips and probably liver, being managed by Dr. Pak came to ER with nausea vomiting and intermittent diarrhea for about 3 weeks. Initially she was being managed as an outpatient with Zofran but it really got worse for last 10 days about 5-6 vomiting per day, about 500 mL each time, nausea and intermittent diarrhea. Diarrhea is getting better. She feels very weak and dehydrated. Denies any abdominal pain. She denies subjective fever but has chills. She also has intermittent cough but denies history of COPD, sinus congestion. In ED, UA is negative. EKG shows normal sinus rhythm at 60 bpm. [] Past Medical History Past Medical History (Chronic Problems): Chronic Problems (Last Reviewed 11/05/18 @ 12:26 by Sloane Schwartz) Fatigue (Chronic) Anorexia (Chronic) Hypertension (Chronic) Encounter for monitoring cardiotoxic drug therapy (Chronic) Stage IV carcinoma of breast (Chronic) Anemia (Chronic) COPD (chronic obstructive pulmonary disease) (Chronic) History of tubal ligation (Chronic) Brain metastases (Chronic) Cerebral aneurysm (Chronic) Primary cancer of left female breast (Chronic) Regional lymph node metastasis present (Chronic) Bone metastases (Chronic) Medical History: Medical History (Last Reviewed 11/05/18 @ 12:26 by Sloane Schwartz) Primary cancer of left female breast (Chronic) C50.912 Regional lymph node metastasis present (Chronic) C77.9 Bone metastases (Chronic) C79.51 Pneumonia J18.9 port placement Allergies No Known Allergies Allergy (Verified 11/09/18 11:15) Home Medications: Ambulatory Orders Medication Instructions Recorded Hydrocodone Bitart/Apap 5-325 1 tablet PO Q6H PRN PRN #10 tablet 10/18/17 [[place] 5/325] Lidocaine/Prilocaine 30 gm TP DAILY PRN PRN #1 cream..g. 10/19/17 [Lidocaine-Prilocaine Cream] Acetaminophen [Tylenol] 325 mg PO PRN PRN 02/13/18 Fentanyl [Subsys] 1 each SL Q6H 06/04/18 Buprenorphine [Butrans 20 Mcg/Hr] 1 patch TOPICAL UD 07/02/18 Dexamethasone [Decadron] 4 mg PO DAILY #30 tablet 07/26/18 Loperamide [Imodium] 2 mg PO Q2H PRN PRN 30 Days #30 cap 08/15/18 Omeprazole [Prilosec] 20 mg PO DAILY 30 Days #30 cap 08/15/18 Ondansetron [Zofran Odt] 8 mg PO Q8H PRN PRN 10 Days #30 tab 08/15/18 Docusate Sodium [Colace] 100 mg PO DAILY 10/03/18 Ondansetron [Ondansetron Odt] 8 mg PO Q8H PRN PRN 10 Days #30 10/03/18 tab.rapdis Ondansetron [Zofran] 8 mg PO Q8H PRN PRN 30 Days #30 10/03/18 tablet Capecitabine [Xeloda] 1,000 mg PO BID 11/09/18 Lapatinib Ditosylate [Tykerb] 1,000 mg PO DAILY 11/09/18 Surgical History: Surgical History (Last Reviewed 11/05/18 @ 12:26 by Sloane Schwartz) History of section Z98.891 Hx of tonsillectomy Z98.890, Z90.89 Smoking Status: Former smoker - *Family History Maternal Family History: Family History (Last Reviewed 11/05/18 @ 12:26 by Sloane Schwartz) Mother Heart disease Father Heart disease Aunt Breast cancer History Items: Cancer - Breast cancer in maternal aunt Review of Systems Constitutional: Reports: Anorexia, Chills, Malaise, Weakness, Fatigue HEENT: Denies: Head Aches, Sinus Congestion, Sinus Drainage Cardiovascular: Denies: Chest Pain, Palpitations Respiratory: Reports: Cough, Shortness of breath upon exertion. Denies: Shortness of Breath, Shortness of breath at rest, Sputum production Gastrointestinal: Denies: Abdominal Pain, Nausea, Vomiting Genitourinary: Denies: Dysuria, Frequency, Hematuria, Hesitancy, Retention Musculoskeletal: Denies: Joint Pain, Joint Tenderness Skin: Denies: Rash, Wounds Neurological: Denies: Focal weakness, Numbness, Tingling Psychiatric: Denies: Anxiety, Depression, Homicidal Ideations, Suicidal Ideations Hematologic/ Lymphatic: Denies: Easy Bruising, Easy Bleeding VTE Information - Inpt Only VTE Present on Admission: No VTE Mechan Device Prophylaxis: None VTE Pharm Prophylaxis ordered?: Yes Patient Problems: Active and Suspected Problems (Last Reviewed 11/05/18 @ 12:26 by Sloane Schwartz) Hypokalemia (Acute) CINV (chemotherapy-induced nausea and vomiting) (Acute) Diarrhea (Acute) - Physical Exam General: Alert, Oriented x3, Cooperative HEENT: Atraumatic, PERRLA, EOMI, Normocephalic Oral: Dry Mucosa Neck: Supple, No JVD, Negative Carotid Bruits Lungs: Clear to auscultation, Normal air movement, No rhonchi, No wheeze, No rales Cardiovascular: Regular rate, Regular Rhythm, Normal S1, Normal S2, No murmurs Abdomen: Bowel Sounds Present, Soft, Non Tender Extremities: No edema, Capillary Refill Less than 3 Seconds Skin: No rashes, No breakdown Musculoskeletal: No Tenderness to Palpation of Joints or Extremities, Arthritic Changes, Muscle Wasting Neurological: Cranial nerves II-XII grossly intact, Deep Tendon Reflexes 2+/4 and Symmetrical, Neuro grossly intact Psych/Mental Status: Normal Affect, Appropriate Vital Signs Temp Pulse Resp BP Pulse Ox 97.0 F L 55 L 18 138/80 H 99 11/09/18 11:00 11/09/18 14:18 11/09/18 14:18 11/09/18 14:18 11/09/18 14:18 Oxygen Delivery Method Room Air Weight: 144 lb 6.4 oz Body Mass Index (BMI) 26.4 Laboratory Tests Past 24 Hrs 11/09/18 11/09/18 11/09/18 11:40 12:35 12:35 WBC 6.0 RBC 3.90 L Hgb 12.5 Hct 38.8 MCV 99.5 H MCH 32.1 H MCHC 32.2 RDW 17.9 H RDW Differential 64.9 H Plt Count 232 MPV 8.9 Immature Gran % (Auto) 0.300 Neut % (Auto) 86.9 H Lymph % (Auto) 8.7 L [place] % (Auto) 3.3 Eos % (Auto) 0.3 Baso % (Auto) 0.5 Absolute Neuts (auto) 5.2 Absolute Lymphs (auto) 0.52 L Total Counted Not Reportable Differential Comment SCANNED Sodium 144 Potassium 3.5 Chloride 111 H Carbon Dioxide 24.0 Anion Gap 9 BUN 2 L Creatinine 0.55 Estim Creat Clear Calc 95.71 Est GFR (MDRD) Af Amer 149 Est GFR (MDRD) Non-Af 123 BUN/Creatinine Ratio 3.6 L Glucose 88 Lactic Acid Calcium 8.2 L Total Bilirubin 0.30 AST 22 ALT 15 Alkaline Phosphatase 51 Troponin I < 0.015 Total Protein 5.8 L Albumin 3.0 L Globulin 2.8 Albumin/Globulin Ratio 1.1 Lipase 96 Urine Color Yellow Urine Clarity Clear Urine pH 6.5 Ur Specific [place] 1.010 Urine Protein Negative Urine Glucose (UA) Normal Urine Ketones Negative Urine Occult Blood 10 H Urine Nitrite Negative Urine Bilirubin Negative Urine Urobilinogen Normal Ur Leukocyte Esterase 25 H Urine RBC 0 SEEN Urine WBC 0-5 SEEN Ur Squamous Epith Cells 0 SEEN Urine Bacteria 0 SEEN Urine Mucus 0 SEEN 11/09/18 12:35 WBC RBC Hgb Hct MCV MCH MCHC RDW RDW Differential Plt Count MPV Immature Gran % (Auto) Neut % (Auto) Lymph % (Auto) [place] % (Auto) Eos % (Auto) Baso % (Auto) Absolute Neuts (auto) Absolute Lymphs (auto) Total Counted Differential Comment Sodium Potassium Chloride Carbon Dioxide Anion Gap BUN Creatinine Estim Creat Clear Calc Est GFR (MDRD) Af Amer Est GFR (MDRD) Non-Af BUN/Creatinine Ratio Glucose Lactic Acid 0.9 Calcium Total Bilirubin AST ALT Alkaline Phosphatase Troponin I Total Protein Albumin Globulin Albumin/Globulin Ratio Lipase Urine Color Urine Clarity Urine pH Ur Specific [place] Urine Protein Urine Glucose (UA) Urine Ketones Urine Occult Blood Urine Nitrite Urine Bilirubin Urine Urobilinogen Ur Leukocyte Esterase Urine RBC Urine WBC Ur Squamous Epith Cells Urine Bacteria Urine Mucus Assessment/Plan All Active Problems (Last Reviewed 11/05/18 @ 12:26 by Sloane Schwartz) Hypokalemia (Acute) CINV (chemotherapy-induced nausea and vomiting) (Acute) Diarrhea (Acute) Intractable nausea and vomiting (Acute) Nausea & vomiting (Acute) SIRS (systemic inflammatory response syndrome) (Acute) Chemotherapy-induced diarrhea (Resolved) Injury of foot, left (Resolved) The patient is a 53 year old F with history of a stage IV CA breast, wide metastasis to brain, spine, hips and probably liver, being managed by Dr. Pak came to ER with nausea vomiting and intermittent diarrhea for about 3 weeks. Initially she was being managed as an outpatient with Zofran but it really got worse for last 10 days about 5-6 vomiting per day, about 500 mL each time, nausea and intermittent diarrhea. Diarrhea is getting better. She feels very weak and dehydrated. Denies any abdominal pain. She denies subjective fever but has chills. She also has intermittent cough but denies history of COPD, sinus congestion. In ED, UA is negative. EKG shows normal sinus rhythm at 60 bpm. 1. Severe dehydration secondary to intractable nausea, vomiting and diarrhea: Patient is being admitted on regular MedSurg floor. IV fluid rehydration. She had 1 L of normal saline bolus. We will give 1 more liter normal saline and then half normal saline 150 mill per hour. Potassium is 3.5. Bicarb 24, anion gap 9. Creatinine 0.55. Monitor intake and output. 2. Intermittent cough: Has quit smoking long time ago. Chest x-ray PA and lateral ordered. Patient states cough does not seem to be bronchitis. 3. Stage IV CA breast with wide metastasis: Care as per Dr. Pak. Hold oral chemotherapy as the patient is having nausea and vomiting. We will consult Dr. walker for further opinion. 4. Hypertension: Blood pressure stable. 5. DVT prophylaxis: Lovenox 40 mg subcu daily. This note was generated with [email or web address] dictation software. Every effort was made to ensure accuracy, however computerized retail event assistant mistakes may persist. Code Visit Inpatient E&M: 57144 Init Hosp L3
--- NOTE | 2018-11-09 15:20 | RAD_ITS ---
STUDY: X-RAY CHEST REASON FOR EXAM: Female, 53 years old. Cough. TECHNIQUE: Frontal and lateral views of the chest. COMPARISON: August 28, 2018 FINDINGS: A right internal jugular catheter is stable. The lungs are clear and expanded. There is no demonstrated pleural abnormality. Normal size heart. Normal mediastinum and anjel. Normal visualized pulmonary arteries. Normal visualized aortic arch and descending thoracic aorta. Normal visualized thoracic spine. Normal visualized ribs, clavicles, and shoulders. There is no demonstrated abnormality of the visualized soft tissue structures of the upper abdomen. RAD/Chest PA and Lateral IMPRESSION: No interval change and no acute pathology. Electronically Signed: Vamsi Kline MD at 15:45 EST , Service support ,
[2018-11-09 16:26] VITALS: RESP 18; BMI 26.4
[2018-11-09 16:52] VITALS: BP 131/85; PULSE 65; RESP 18; TEMP 37; O2SAT 98
[2018-11-09] MEDS: 0.9% Normal Saline 1,000 ML 999 ML IV (17:01)
[2018-11-09] MEDS: Enoxaparin 40 MG/0.4 ML Syringe SC (17:10)
[2018-11-09 17:17] VITALS: O2SAT 97
[2018-11-09] MEDS: 0.45% Normal Saline 1,000 ML 150 ML IV (18:07)
[2018-11-09] MEDS: HYDROcodone Bitartrate/Apap 5/325 Tablet PO (20:24)
[2018-11-10] MEDS: 0.45% Normal Saline 1,000 ML 150 ML IV ×3 (00:30→13:01)
[2018-11-10 02:30] VITALS: BP 129/83; PULSE 69; RESP 16; TEMP 36.8; O2SAT 97
[2018-11-10] MEDS: HYDROcodone Bitartrate/Apap 5/325 Tablet PO ×4 (02:47→21:58)
[2018-11-10] MEDS: 0.9% NaCl VAD Flush 10 ML IV ×4 (06:13→21:58)
[2018-11-10 07:04] LABS: Absolute Neutrophil Count 3.3 X10^3/uL (2.0-7.7); Anion Gap 11 (5-15); BUN 3 mg/dL (7-18); BUN/Creat Ratio 3.6 RATIO (10-20); Basophil# 0.01 X10^3/uL; Basophil% 0.2 % (0-1); Chloride 113 mmol/L (98-107); Creatinine, Serum 0.84 mg/dL (0.55-1.02); EST Glomerular Filtration Rate 75 mL/min (>60); Est Glom Filt Rate - Afr Amer 91 mL/min (>60); Estimated Creatinine Clearance 62.67 ml/min; Glucose 141 mg/dL (74-106); Hematocrit 35.2 % (37-47); Hemoglobin 11.2 g/dl (12.0-15.0); Lymphocyte % 18.6 % (19-41); Mean Corp Hgb Conc 31.8 g/gl (32-36); Mean Corpuscular Volume 100.6 fL (81-99); Mean Platelet Vol. 9.5 fl (6.2-12.0); Monocyte# 0.65 X10^3/uL; Monocyte% 13.4 % (0-10); Neutrophil # 3.27 X10^3/uL (2.7-7.7); Neutrophil % 67.6 % (47-70); Platelet Count 218 K/mm3 (150-450); Potassium 3.6 mmol/L (3.5-5.1); RBC Distribution Width CV 18.2 % (11.6-14.6); RBC Distribution Width SD 66.5 fl (35.1-43.9); Sodium Level 145 mmol/L (136-145); White Blood Count 4.8 K/mm3 (4.4-11.0)
[2018-11-10 07:07] LABS: Differential Indicated SCAN CRITERIA MET; POSITIVE COUNT NO; POSITIVE DIFFERENTIAL NO; POSITIVE MORPHOLOGY YES
[2018-11-10 07:10] VITALS: O2SAT 95
[2018-11-10 07:15] LABS: Anisocytosis 1+; Macrocytosis 1+
[2018-11-10 08:39] VITALS: BP 135/82; PULSE 73; RESP 16; TEMP 36.8; O2SAT 99
[2018-11-10 10:25] VITALS: PULSE 72
[2018-11-10] MEDS: Pantoprazole Sodium 20 MG Tablet PO (10:25)
--- NOTE | 2018-11-10 12:42 | PN_ITS ---
Patient Problems: Active and Suspected Problems (Last Reviewed 11/05/18 @ 12:26 by Sloane Schwartz) Diarrhea (Acute) Hypokalemia (Acute) CINV (chemotherapy-induced nausea and vomiting) (Acute) Diarrhea (Acute) Subjective: The patient is a 53-year-old female with stage IV invasive lobular carcinoma of the breast with mets to the brain and the bone (ER and FL negative and HER-2 overexpressed), hypertension, chronic anemia, chronic pain syndrome COPD cerebral aneurysm who presented to the emergency department at [facility] on 11/09/2018 complaining of nausea/vomiting/diarrhea for the preceding 3 weeks. She had been taking Zofran as an outpatient but the symptoms for the past 10 days have escalated and she was vomiting 5-6 times daily. She complained of feeling weak. She denied fevers and denied abdominal pain. Vital signs at presentation to the emergency room were temperature 97 ?F, ALT 77, blood pressure 116/85, respiratory rate 16 and she was 96% saturated on room air. CBC showed a white blood cell count of 6.0 with 87% neutrophils, hemoglobin of 12.5 and platelet count of 232,000. BMP was unremarkable. LFTs were normal. A UA had 0-5 WBCs per high-power field with no bacteria. Lipase was normal. She was admitted to the hospital with a dx of intractable N/V and intermittent diarrhea. Intravenous fluids were ordered. Ondansetron IV was ordered for nausea. Per Dr. Pak's recent note the Xeloda is to be held for 1 week. All events of the past 24 hours of been reviewed. Afebrile since admission. Vital signs are stable. She is not tachycardic. Respiratory rate has ranged from 16-20 and she is 95-99% saturated on room air. She tells me that she is allergic to the Fentanyl patch. she tolerates [place]. She also tolerates [place]. She sees Dr. Anderson for pain management Nausea is improving and she has been able to keep liquids down......diarrhea is much improved. She is c/o burning in the back of her throat to to emesis with bilious vomitus Objective: PHYSICAL EXAM: GENERAL: alert, oriented X 3, Cooperative, looks chronically ill ORAL: dry mucosa, no mucosal lesions NECK: No JVD, supple, trachea midline LUNGS: CTA, symmetric chest expansion, diminished HEART: RRR, Normal S1 and S2, no rub, no gallop, no murmurs ABDOMEN: soft, NT, ND, BS present, no guarding with palpation EXTREMITIES: no edema, no cyanosis, no calf tenderness SKIN: No rashes, no breakdown, many subcutaneous nodules NEUROLOGIC: no focal neurologic deficits PSYCH: appropriate, normal affect, pleasant - Physical Exam Vital Signs Temp Pulse Resp BP Pulse Ox 98.3 F 72 16 135/82 H 99 11/10/18 08:39 11/10/18 10:25 11/10/18 08:39 11/10/18 08:39 11/10/18 08:39 Oxygen Delivery Method Room Air Weight: 144 lb 6.4 oz Body Mass Index (BMI) 26.4 Intake and Output for Last 24 Hours 11/08/18 11/09/18 11/10/18 23:59 23:59 23:59 Intake Total 1420 / 1420 3756 / 3756 Output Total 2600 / 2600 Balance 1420 / 1420 1156 / 1156 Laboratory Tests Past 24 Hrs 11/09/18 11/09/18 11/09/18 11:40 12:35 12:35 WBC 6.0 RBC 3.90 L Hgb 12.5 Hct 38.8 MCV 99.5 H MCH 32.1 H MCHC 32.2 RDW 17.9 H RDW Differential 64.9 H Plt Count 232 MPV 8.9 Immature Gran % (Auto) 0.300 Neut % (Auto) 86.9 H Lymph % (Auto) 8.7 L [place] % (Auto) 3.3 Eos % (Auto) 0.3 Baso % (Auto) 0.5 Absolute Neuts (auto) 5.2 Absolute Lymphs (auto) 0.52 L Total Counted Not Reportable Differential Comment SCANNED Anisocytosis Macrocytosis Sodium 144 Potassium 3.5 Chloride 111 H Carbon Dioxide 24.0 Anion Gap 9 BUN 2 L Creatinine 0.55 Estim Creat Clear Calc 95.71 Est GFR (MDRD) Af Amer 149 Est GFR (MDRD) Non-Af 123 BUN/Creatinine Ratio 3.6 L Glucose 88 Lactic Acid Calcium 8.2 L Total Bilirubin 0.30 AST 22 ALT 15 Alkaline Phosphatase 51 Troponin I < 0.015 Total Protein 5.8 L Albumin 3.0 L Globulin 2.8 Albumin/Globulin Ratio 1.1 Lipase 96 Urine Color Yellow Urine Clarity Clear Urine pH 6.5 Ur Specific [place] 1.010 Urine Protein Negative Urine Glucose (UA) Normal Urine Ketones Negative Urine Occult Blood 10 H Urine Nitrite Negative Urine Bilirubin Negative Urine Urobilinogen Normal Ur Leukocyte Esterase 25 H Urine RBC 0 SEEN Urine WBC 0-5 SEEN Ur Squamous Epith Cells 0 SEEN Urine Bacteria 0 SEEN Urine Mucus 0 SEEN 11/09/18 11/10/18 11/10/18 12:35 06:20 06:20 WBC 4.8 RBC 3.50 L Hgb 11.2 L Hct 35.2 L MCV 100.6 H MCH 32.0 MCHC 31.8 L RDW 18.2 H RDW Differential 66.5 H Plt Count 218 MPV 9.5 Immature Gran % (Auto) 0.200 Neut % (Auto) 67.6 Lymph % (Auto) 18.6 L [place] % (Auto) 13.4 H Eos % (Auto) 0.0 Baso % (Auto) 0.2 Absolute Neuts (auto) 3.3 Absolute Lymphs (auto) 0.90 Total Counted Not Reportable Differential Comment Anisocytosis 1+ Macrocytosis 1+ Sodium 145 Potassium 3.6 Chloride 113 H Carbon Dioxide 21.0 Anion Gap 11 BUN 3 L Creatinine 0.84 Estim Creat Clear Calc 62.67 Est GFR (MDRD) Af Amer 91 Est GFR (MDRD) Non-Af 75 BUN/Creatinine Ratio 3.6 L Glucose 141 H Lactic Acid 0.9 Calcium 8.0 L Total Bilirubin AST ALT Alkaline Phosphatase Troponin I Total Protein Albumin Globulin Albumin/Globulin Ratio Lipase Urine Color Urine Clarity Urine pH Ur Specific [place] Urine Protein Urine Glucose (UA) Urine Ketones Urine Occult Blood Urine Nitrite Urine Bilirubin Urine Urobilinogen Ur Leukocyte Esterase Urine RBC Urine WBC Ur Squamous Epith Cells Urine Bacteria Urine Mucus Medical Necessity - Tobacco Use Smoking Status: Former smoker Assessment/Plan All Active Problems (Last Reviewed 11/05/18 @ 12:26 by Sloane Schwartz) Diarrhea (Acute) Hypokalemia (Acute) CINV (chemotherapy-induced nausea and vomiting) (Acute) Diarrhea (Acute) Intractable nausea and vomiting (Acute) Nausea & vomiting (Acute) SIRS (systemic inflammatory response syndrome) (Acute) Chemotherapy-induced diarrhea (Resolved) Injury of foot, left (Resolved) Impressions 1. intractable N/V/D 2. severe dehydration 3. breast CA with mets to the brain, liver and the bone per the pt 4. HTN Roxanol for breakthrough pain add Compazine as a back up in case the Zofran is not effective Try Toradol for bone pain lovenox for DVT prophylaxis DC the fentanyl patch BMX for throat and mouth pain Recheck the lab in the AM Code Visit Inpatient E&M: 98279 Subs Hosp L2
--- NOTE | 2018-11-10 12:54 | CASEMGMT ---
Advanced directives Patient reporting to have a Health Care Power of Thin Film Technician completed already and to be working on completing a Living Will with patient bartender. Patient reporting to not have HCPOA paperwork with patient at this time but planning to bring in documents next doctors appointment with Dr. Pak. Elizabeth Ramirez LABOR ECONOMIST, OUTBOUND TELEMARKETING REPRESENTATIVE
--- NOTE | 2018-11-10 12:56 | CASEMGMT ---
Social Work Met with patient in room for advanced care planning follow-up as well as general assessment and support. Patient present in room with spouse, Santhosh. Patient lives at home 2-story home with a 1st floor set up patient has x3 steps to enter the home. Patient reporting to have been diagnosed with cancer in September 2017 and to have been receiving chemo and radiation treatments. Patient reporting to have a positive outlook on life and denies any depression or anxiety. Patient noted to have HCPOA and to be working on Living Will. Patient reporting to have support from family and friends as well as spouse. Patient reporting no financial concerns and that patient insurance has been covering patient's medical bills. Patient reporting to utilize no DME and to have [facility] primary pharmacy. Patient plans to return to home with spouse when it is time of discharge and denies any needs. Emotional support provided. Elizabeth RODRÍGUEZ, ELICIA
[2018-11-10 13:20] LABS: Magnesium 1.7 mg/dL (1.6-2.6); Phosphorus 3.2 mg/dL (2.5-4.9)
[2018-11-10 14:06] VITALS: BP 126/87; PULSE 65; RESP 18; TEMP 36.8; O2SAT 98
--- NOTE | 2018-11-10 17:12 | ONC.CON.INP2 ---
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 Patient was diagnosed with metastatic breast cancer to brain and bones in August 2017. Treatment: Focal radiation therapy to the sites of disease in the [facility] at [facility] 10/2017 Whole brain radiation therapy 3000 cGy of 6 MV photons in 10 fractions 02/28/18- 03/13/18. Systemic therapy was held during whole brain radiation. 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 Lapatinib-Capecitabine August 21, 2018 -present (Held September 26 through October 03, 2018 due to excessive GI toxicity and again on hold since November 06), Past Medical History: Chronic Problems (Last Reviewed 11/05/18 @ 12:26 by Sloane Schwartz) Fatigue (Chronic) Anorexia (Chronic) Hypertension (Chronic) Encounter for monitoring cardiotoxic drug therapy (Chronic) Stage IV carcinoma of breast (Chronic) Anemia (Chronic) COPD (chronic obstructive pulmonary disease) (Chronic) History of tubal ligation (Chronic) Brain metastases (Chronic) Cerebral aneurysm (Chronic) Primary cancer of left female breast (Chronic) Regional lymph node metastasis present (Chronic) Bone metastases (Chronic) Past Medical/Surgical History: Past Medical History - Most Recent Inpatient Visit Past Medical History Start: 11/09/18 16:26 Text: Status: Complete Freq: ONCE Protocol: Document 11/09/18 16:26 KIERRA (Rec: 11/09/18 16:41 KIERRA [id number]) BMI Required to complete PMH What is Patient's BMI 26.4 Past Medical History Unable History Recalled No Query Text:Pt Unable/Family Not Present Neurologic Medical History Hx Stroke/TIA No Hx Dementia/Alzheimer's No Hx Parkinson's Disease No Hx Seizures No Hx Multiple Sclerosis No Hx Migraines Yes Cardiac Medical History VTE Present on Admission No Hx of Deep Vein Thrombosis/VTE/PE No Hx Hypertension No Hx Chest Pain/Angina No Hx Heart Attack No Hx Cardiac Surgery/Stents/Etc. No Hx Heart Failure No Hx Pacemaker/AICD No Hx Irregular Heartbeat and/or Afib No Hx Anticoagulant Therapy No Query Text:(Coumadin, Aspirin, Plavix, Xarelto, etc.) Hx Pain in Legs when Walking/Leg Cramps No Respiratory Medical History Hx COPD No Hx Emphysema No Hx Smoking No Smoking Status Former smoker Hx Tobacco Use in last 12 months No Hx Sleep Apnea No Do you snore loudly (louder than talking No or can be heard through closed doors)? Do you often feel tired/ fatigued/ No sleepy during daytime? Has anyone observed you stop breathing No during sleep? STOP Results Negative GI Medical History Hx Ulcer No Hx Hepatitis No Hx Cirrhosis No Hx GI Bleed No Hx Unplanned Weight Loss Yes Genitourinary Medical History Indwelling Catheter in Place on Arrival/ No Admission Hx Renal Disease No Hx Dialysis No Musculoskeletal History Hx Arthritis Yes: back, elbow Hx Rheumatoid Arthritis No Endocrine Medical History Hx Diabetes No Hx Thyroid Disease No Hematologic Medical History Hx of Blood Transfusion Yes Hx of Transfusion in last 3 Months No Ever experience any problems with No transfusion(s)? Hx of Preganancy in last 3 Months No Nurse Filling Out Transfusion & RKALIKASI Questions: Date: 11/09/18 Time: 16:39 Psycho/Social Medical History Hx Depression Yes Hx Anxiety Yes Hx Behavior Disorder No Hx Alcohol Use No Hx Substance Use No Other Medical History Hx Blood Disorders No Hx Anemia Yes Hx Cancer Yes: MET BREAST Hx Drug Resistant Organism No Wound/Pressure Injury Present on Arrival No /Admission Query Text:If yes, chart assessment in Shift/Clinical Findings Central Line/PICC/VAD Present on Arrival Yes /Admission Antibiotics within last 7 days? No Methicillin Resistant Staphylococcus aureus Screening Active MRSA No Risk for Readmission Number of Risk Factors 7 At Risk for Readmission Patient is At Risk For Readmission Patient is eligible for Call Back Y Past Medical History (Last Reviewed 11/05/18 @ 12:26 by Sloane Schwartz) Primary cancer of left female breast (Chronic) Regional lymph node metastasis present (Chronic) Bone metastases (Chronic) Pneumonia (Acute) port placement (Acute) Past Surgical History (Last Reviewed 11/05/18 @ 12:26 by Sloane Schwartz) History of section (Acute) Hx of tonsillectomy (Acute) Maternal Family History: Family History (Last Reviewed 11/05/18 @ 12:26 by Sloane Schwartz) Mother Heart disease Father Heart disease Aunt Breast cancer Family History: Cancer - Breast cancer in maternal aunt - Social History Smoking Status: Former smoker Allergies/Adverse Reactions: Allergy/AdvReac Type Severity Reaction Status Date / Time No Known Allergies Allergy Verified 11/09/18 11:15 Review of Systems Constitutional:: Reports: Weakness, Fatigue. Denies: Fever, Sweats, Weight loss, Appetite change, Chills Cardiovascular:: Reports: Dyspnea on exertion. Denies: Chest pain, Palpitations, Orthopnea, PND, Shortness of breath Respiratory: Reports: Shortness of breath upon exertion. Denies: Cough, Hemoptysis, Shortness of Breath, Wheezing Gastrointestinal:: Reports: Nausea, Vomiting, Diarrhea. Denies: Abdominal pain, Constipation, Hematochezia Genitourinary: Denies: Dysuria, Hematuria, 15, Flank pain Musculoskeletal:: Reports: - - Pain well controlled on a regimen of narcotic analgesia. Denies: Back pain, Myalgia, Arthralgia Skin: Denies: Rash, Skin Changes, Wounds Neurological:: Denies: Headache, Dizziness, Visual changes, Tinnitus, Hearing loss Psychiatric: Denies: Anxiety, Depression, Homicidal Ideations, Suicidal Ideations Vital Signs Height 5 ft 2 in Weight: 65.499 kg Weight in Pounds 144.4 lbs BMI 25.3 Pulse Ox 98 Temperature 98.2 F Pulse Rate 65 Respiratory Rate 18 Blood Pressure 126/87 Blood Pressure Position Semi-Fowlers - Physical Exam General: Alert, Oriented x3, - - Cushingoid, chronically ill look, ECOG 2 HEENT: Atraumatic, PERRLA, EOMI, Normocephalic Oropharynx:: Dry mucosa Neck:: Supple, Trachea midline, - - Port okay. Negative for: JVD, bilateral Cardiac:: Regular rate, Regular rhythm, Normal S1, Normal S2. Negative for: Murmur Lungs: Clear to auscultation, Diminished, Excusion symmetrical. Negative for: Rhonchi, Wheezes Abdomen:: Soft, Non-tender, Non-distended. Negative for: Hepatosplenomegaly Extremities:: Negative for: Cyanosis, Edema Neurological: Neuro grossly intact Skin:: Lesions - Widespread multiple subcutaneous nodules (chronic, predate cancer diagnosis. Negative for: Rash, Petechiae, Ecchymosis Psychiatric:: Appropriate affect, Euthymic Lymphatics:: Negative for: Cervical lymphadenopathy, Supraclavicular lymphadenopathy Laboratory Data: Laboratory Tests 11/10/18 11/10/18 11/10/18 Range/Units 06:20 06:20 06:20 WBC 4.8 (4.4-11.0) K/mm3 RBC 3.50 L (4.2-5.4) M/mm3 Hgb 11.2 L (12.0-15.0) g/dl Hct 35.2 L (37-47) % MCV 100.6 H (81-99) fL MCH 32.0 (27.0-32.0) pg MCHC 31.8 L (32-36) g/gl RDW 18.2 H (11.6-14.6) % RDW Differential 66.5 H (35.1-43.9) fl Plt Count 218 (150-450) K/mm3 MPV 9.5 (6.2-12.0) fl Immature Gran % (Auto) 0.200 (0.0-0.9) % Neut % (Auto) 67.6 (47-70) % Lymph % (Auto) 18.6 L (19-41) % [place] % (Auto) 13.4 H (0-10) % Eos % (Auto) 0.0 (0-5) % Baso % (Auto) 0.2 (0-1) % Absolute Neuts (auto) 3.3 (2.0-7.7) X10^3/uL Absolute Lymphs (auto) 0.90 (0.83-4.51) X10^3/ul Total Counted Not Reportable Anisocytosis 1+ Macrocytosis 1+ Sodium 145 (136-145) mmol/L Potassium 3.6 (3.5-5.1) mmol/L Chloride 113 H (98-107) mmol/L Carbon Dioxide 21.0 (21.0-32.0) mmol/L Anion Gap 11 (5-15) BUN 3 L (7-18) mg/dL Creatinine 0.84 (0.55-1.02) mg/dL Estim Creat Clear Calc 62.67 ml/min Est GFR (MDRD) Af Amer 91 (>60) mL/min Est GFR (MDRD) Non-Af 75 (>60) mL/min BUN/Creatinine Ratio 3.6 L (10-20) RATIO Glucose 141 H (74-106) mg/dL Calcium 8.0 L (8.5-10.1) mg/dL Phosphorus 3.2 (2.5-4.9) mg/dL Magnesium 1.7 (1.6-2.6) mg/dL Diagnostic Data: Diagnostic Data Chest X-Ray 11/09/18 15:20 IMPRESSION: No interval change and no acute pathology. Electronically Signed: Vamsi Kline MD at 15:45 EST , Service support , Assessment and Plan 53-year-old female with metastatic breast cancer presenting August 2017 with a palpable breast mass, widespread bone and brain metastases. Patient has been treated with multiple lines of therapy as summarized in HPI currently on lapatinib and Xeloda presenting the week of November 05, 2018 was acute intractable nausea vomiting and diarrhea. All cancer therapy has been on hold since November 06, she was managed for a few days as outpatient with antiemetics and IV fluid hydration but due to persistence of symptoms she was hospitalized. Recommendations: 1. Continue to hold anticancer treatment (lapatinib and Xeloda). 2. Continue with supportive management with IV fluids and antiemetics. 3. Diarrhea has improved by November 10, 2018 and would hold off antimotility agents. 4. Follow-up with myself following discharge Medications: Prescriptions This Visit Medication Instructions Recorded Acetaminophen [Tylenol] 325 mg PO PRN PRN 11/09/18 Aspirin/Acetaminophen/Caffeine 2 tab PO PRN PRN 11/09/18 [Excedrin Extra Strength Caplet] Medications Added to Medication List This Visit Category Date Time Status 0.45% Normal Saline 1,000 ml Med 11/10/18 15:48 Active Potassium Chloride 10 meq IV 100 mls/hr Bmx Liquid Med 11/10/18 15:44 Active 10 ml PO Q3H PRN PRN Buprenorphine HCl Med 11/10/18 14:00 Active 2 mg SL Q8 Ensure Clear Med 11/10/18 18:00 Active 120 ml PO 4X/DAY Fentanyl [Subsys] Med 11/10/18 12:00 Active 1 each SL Q6 Ketorolac [Toradol] Med 11/10/18 22:00 Active 30 mg IV Q8 Pantoprazole Sodium [Protonix] Med 11/10/18 10:00 Active 20 mg PO DAILY morphine solution (IR) [Roxanol (IR oral solution)] Med 11/10/18 15:48 Active 10 mg SL/PO Q4H PRN PRN proCHLORPERazine IV [Compazine IV] Med 11/10/18 15:42 Active 10 mg IV Q6H PRN PRN Primary Care Provider: Eric Granados III, MD Referring Provider: Omar Beauchamp MD
--- NOTE | 2018-11-10 17:16 | CON.PCM_ITS ---
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 Patient was diagnosed with metastatic breast cancer to brain and bones in August 2017. Treatment: Focal radiation therapy to the sites of disease in the [facility] at [facility] 10/2017 Whole brain radiation therapy 3000 cGy of 6 MV photons in 10 fractions 02/28/18- 03/13/18. Systemic therapy was held during whole brain radiation. 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 Lapatinib-Capecitabine August 21, 2018 -present (Held September 26 through October 03, 2018 due to excessive GI toxicity and again on hold since November 06), Past Medical History: Chronic Problems (Last Reviewed 11/05/18 @ 12:26 by Sloane Schwartz) Fatigue (Chronic) Anorexia (Chronic) Hypertension (Chronic) Encounter for monitoring cardiotoxic drug therapy (Chronic) Stage IV carcinoma of breast (Chronic) Anemia (Chronic) COPD (chronic obstructive pulmonary disease) (Chronic) History of tubal ligation (Chronic) Brain metastases (Chronic) Cerebral aneurysm (Chronic) Primary cancer of left female breast (Chronic) Regional lymph node metastasis present (Chronic) Bone metastases (Chronic) Past Medical/Surgical History: Past Medical History - Most Recent Inpatient Visit Past Medical History Start: 11/09/18 16:26 Text: Status: Complete Freq: ONCE Protocol: Document 11/09/18 16:26 KIERRA (Rec: 11/09/18 16:41 KIERRA [id number]) BMI Required to complete PMH What is Patient's BMI 26.4 Past Medical History Unable History Recalled No Query Text:Pt Unable/Family Not Present Neurologic Medical History Hx Stroke/TIA No Hx Dementia/Alzheimer's No Hx Parkinson's Disease No Hx Seizures No Hx Multiple Sclerosis No Hx Migraines Yes Cardiac Medical History VTE Present on Admission No Hx of Deep Vein Thrombosis/VTE/PE No Hx Hypertension No Hx Chest Pain/Angina No Hx Heart Attack No Hx Cardiac Surgery/Stents/Etc. No Hx Heart Failure No Hx Pacemaker/AICD No Hx Irregular Heartbeat and/or Afib No Hx Anticoagulant Therapy No Query Text:(Coumadin, Aspirin, Plavix, Xarelto, etc.) Hx Pain in Legs when Walking/Leg Cramps No Respiratory Medical History Hx COPD No Hx Emphysema No Hx Smoking No Smoking Status Former smoker Hx Tobacco Use in last 12 months No Hx Sleep Apnea No Do you snore loudly (louder than talking No or can be heard through closed doors)? Do you often feel tired/ fatigued/ No sleepy during daytime? Has anyone observed you stop breathing No during sleep? STOP Results Negative GI Medical History Hx Ulcer No Hx Hepatitis No Hx Cirrhosis No Hx GI Bleed No Hx Unplanned Weight Loss Yes Genitourinary Medical History Indwelling Catheter in Place on Arrival/ No Admission Hx Renal Disease No Hx Dialysis No Musculoskeletal History Hx Arthritis Yes: back, elbow Hx Rheumatoid Arthritis No Endocrine Medical History Hx Diabetes No Hx Thyroid Disease No Hematologic Medical History Hx of Blood Transfusion Yes Hx of Transfusion in last 3 Months No Ever experience any problems with No transfusion(s)? Hx of Preganancy in last 3 Months No Nurse Filling Out Transfusion & RKALIKASI Questions: Date: 11/09/18 Time: 16:39 Psycho/Social Medical History Hx Depression Yes Hx Anxiety Yes Hx Behavior Disorder No Hx Alcohol Use No Hx Substance Use No Other Medical History Hx Blood Disorders No Hx Anemia Yes Hx Cancer Yes: MET BREAST Hx Drug Resistant Organism No Wound/Pressure Injury Present on Arrival No /Admission Query Text:If yes, chart assessment in Shift/Clinical Findings Central Line/PICC/VAD Present on Arrival Yes /Admission Antibiotics within last 7 days? No Methicillin Resistant Staphylococcus aureus Screening Active MRSA No Risk for Readmission Number of Risk Factors 7 At Risk for Readmission Patient is At Risk For Readmission Patient is eligible for Call Back Y Past Medical History (Last Reviewed 11/05/18 @ 12:26 by Sloane Schwartz) Primary cancer of left female breast (Chronic) Regional lymph node metastasis present (Chronic) Bone metastases (Chronic) Pneumonia (Acute) port placement (Acute) Past Surgical History (Last Reviewed 11/05/18 @ 12:26 by Sloane Schwartz) History of section (Acute) Hx of tonsillectomy (Acute) Maternal Family History: Family History (Last Reviewed 11/05/18 @ 12:26 by Sloane Schwartz) Mother Heart disease Father Heart disease Aunt Breast cancer Family History: Cancer - Breast cancer in maternal aunt - Social History Smoking Status: Former smoker Allergies/Adverse Reactions: Allergy/AdvReac Type Severity Reaction Status Date / Time No Known Allergies Allergy Verified 11/09/18 11:15 Review of Systems Constitutional:: Reports: Weakness, Fatigue. Denies: Fever, Sweats, Weight loss, Appetite change, Chills Cardiovascular:: Reports: Dyspnea on exertion. Denies: Chest pain, Palpitations, Orthopnea, PND, Shortness of breath Respiratory: Reports: Shortness of breath upon exertion. Denies: Cough, Hemoptysis, Shortness of Breath, Wheezing Gastrointestinal:: Reports: Nausea, Vomiting, Diarrhea. Denies: Abdominal pain, Constipation, Hematochezia Genitourinary: Denies: Dysuria, Hematuria, 15, Flank pain Musculoskeletal:: Reports: - - Pain well controlled on a regimen of narcotic analgesia. Denies: Back pain, Myalgia, Arthralgia Skin: Denies: Rash, Skin Changes, Wounds Neurological:: Denies: Headache, Dizziness, Visual changes, Tinnitus, Hearing loss Psychiatric: Denies: Anxiety, Depression, Homicidal Ideations, Suicidal Ideations Vital Signs Height 5 ft 2 in Weight: 65.499 kg Weight in Pounds 144.4 lbs BMI 25.3 Pulse Ox 98 Temperature 98.2 F Pulse Rate 65 Respiratory Rate 18 Blood Pressure 126/87 Blood Pressure Position Semi-Fowlers - Physical Exam General: Alert, Oriented x3, - - Cushingoid, chronically ill look, ECOG 2 HEENT: Atraumatic, PERRLA, EOMI, Normocephalic Oropharynx:: Dry mucosa Neck:: Supple, Trachea midline, - - Port okay. Negative for: JVD, bilateral Cardiac:: Regular rate, Regular rhythm, Normal S1, Normal S2. Negative for: M urmur Lungs: Clear to auscultation, Diminished, Excusion symmetrical. Negative for: Rhonchi, Wheezes Abdomen:: Soft, Non-tender, Non-distended. Negative for: Hepatosplenomegaly Extremities:: Negative for: Cyanosis, Edema Neurological: Neuro grossly intact Skin:: Lesions - Widespread multiple subcutaneous nodules (chronic, predate cancer diagnosis. Negative for: Rash, Petechiae, Ecchymosis Psychiatric:: Appropriate affect, Euthymic Lymphatics:: Negative for: Cervical lymphadenopathy, Supraclavicular lymphadenopathy Laboratory Data: Laboratory Tests 11/10/18 11/10/18 11/10/18 Range/Units 06:20 06:20 06:20 WBC 4.8 (4.4-11.0) K/mm3 RBC 3.50 L (4.2-5.4) M/mm3 Hgb 11.2 L (12.0-15.0) g/dl Hct 35.2 L (37-47) % MCV 100.6 H (81-99) fL MCH 32.0 (27.0-32.0) pg MCHC 31.8 L (32-36) g/gl RDW 18.2 H (11.6-14.6) % RDW Differential 66.5 H (35.1-43.9) fl Plt Count 218 (150-450) K/mm3 MPV 9.5 (6.2-12.0) fl Immature Gran % (Auto) 0.200 (0.0-0.9) % Neut % (Auto) 67.6 (47-70) % Lymph % (Auto) 18.6 L (19-41) % [place] % (Auto) 13.4 H (0-10) % Eos % (Auto) 0.0 (0-5) % Baso % (Auto) 0.2 (0-1) % Absolute Neuts (auto) 3.3 (2.0-7.7) X10^3/uL Absolute Lymphs (auto) 0.90 (0.83-4.51) X10^3/ul Total Counted Not Reportable Anisocytosis 1+ Macrocytosis 1+ Sodium 145 (136-145) mmol/L Potassium 3.6 (3.5-5.1) mmol/L Chloride 113 H (98-107) mmol/L Carbon Dioxide 21.0 (21.0-32.0) mmol/L Anion Gap 11 (5-15) BUN 3 L (7-18) mg/dL Creatinine 0.84 (0.55-1.02) mg/dL Estim Creat Clear Calc 62.67 ml/min Est GFR (MDRD) Af Amer 91 (>60) mL/min Est GFR (MDRD) Non-Af 75 (>60) mL/min BUN/Creatinine Ratio 3.6 L (10-20) RATIO Glucose 141 H (74-106) mg/dL Calcium 8.0 L (8.5-10.1) mg/dL Phosphorus 3.2 (2.5-4.9) mg/dL Magnesium 1.7 (1.6-2.6) mg/dL Diagnostic Data: Diagnostic Data Chest X-Ray 11/09/18 15:20 IMPRESSION: No interval change and no acute pathology. Electronically Signed: Vamsi Kline MD at 15:45 EST , Service support , Assessment and Plan 53-year-old female with metastatic breast cancer presenting August 2017 with a palpable breast mass, widespread bone and brain metastases. Patient has been treated with multiple lines of therapy as summarized in HPI currently on la patinib and Xeloda presenting the week of November 05, 2018 was acute intractable nausea vomiting and diarrhea. All cancer therapy has been on hold since November 06, she was managed for a few days as outpatient with antiemetics and IV fluid hydration but due to persistence of symptoms she was hospitalized. Recommendations: 1. Continue to hold anticancer treatment (lapatinib and Xeloda). 2. Continue with supportive management with IV fluids and antiemetics. 3. Diarrhea has improved by November 10, 2018 and would hold off antimotility agents. 4. Follow-up with myself following discharge Medications: Prescriptions This Visit Medication Instructions Recorded Acetaminophen [Tylenol] 325 mg PO PRN PRN 11/09/18 Aspirin/Acetaminophen/Caffeine 2 tab PO PRN PRN 11/09/18 [Excedrin Extra Strength Caplet] Medications Added to Medication List This Visit Category Date Time Status 0.45% Normal Saline 1,000 ml Med 11/10/18 15:48 Active Potassium Chloride 10 meq IV 100 mls/hr Bmx Liquid Med 11/10/18 15:44 Active 10 ml PO Q3H PRN PRN Buprenorphine HCl Med 11/10/18 14:00 Active 2 mg SL Q8 Ensure Clear Med 11/10/18 18:00 Active 120 ml PO 4X/DAY Fentanyl [Subsys] Med 11/10/18 12:00 Active 1 each SL Q6 Ketorolac [Toradol] Med 11/10/18 22:00 Active 30 mg IV Q8 Pantoprazole Sodium [Protonix] Med 11/10/18 10:00 Active 20 mg PO DAILY morphine solution (IR) [Roxanol (IR oral solution)] Med 11/10/18 15:48 Active 10 mg SL/PO Q4H PRN PRN proCHLORPERazine IV [Compazine IV] Med 11/10/18 15:42 Active 10 mg IV Q6H PRN PRN Primary Care Provider: Eric Granados III, MD Referring Provider: Omar Beauchamp MD
[2018-11-10] MEDS: BMX LIQUID 180 ML 10 ML PO (17:47)
[2018-11-10 21:11] VITALS: BP 125/63; PULSE 73; RESP 16; TEMP 36.7; O2SAT 94
[2018-11-10] MEDS: Ketorolac 30 MG/ML Syringe IV (21:58)
[2018-11-11 02:10] VITALS: BP 122/77; PULSE 66; RESP 16; TEMP 36.8; O2SAT 98
[2018-11-11] MEDS: morphine (oral solution) 10MG/0.5ML Syringe 10 MG SL/PO ×3 (02:11→22:11)
[2018-11-11] MEDS: Ketorolac 30 MG/ML Syringe IV ×3 (05:41→21:07)
[2018-11-11] MEDS: 0.9% NaCl VAD Flush 10 ML IV ×4 (05:41→21:07)
[2018-11-11 06:05] LABS: Anion Gap 8 (5-15); BUN 3 mg/dL (7-18); BUN/Creat Ratio 6.2 RATIO (10-20); Calcium,Total 7.9 mg/dL (8.5-10.1); Chloride 117 mmol/L (98-107); Creatinine, Serum 0.49 mg/dL (0.55-1.02); EST Glomerular Filtration Rate 143 mL/min (>60); Est Glom Filt Rate - Afr Amer 173 mL/min (>60); Estimated Creatinine Clearance 107.43 ml/min; Glucose 80 mg/dL (74-106); Magnesium 1.9 mg/dL (1.6-2.6); Phosphorus 3.8 mg/dL (2.5-4.9); Potassium 3.6 mmol/L (3.5-5.1); Sodium Level 149 mmol/L (136-145)
[2018-11-11 07:30] VITALS: O2SAT 95
[2018-11-11] MEDS: Pantoprazole Sodium 20 MG Tablet PO (09:40)
[2018-11-11] MEDS: Enoxaparin 40 MG/0.4 ML Syringe SC (09:40)
[2018-11-11] MEDS: HYDROcodone Bitartrate/Apap 5/325 Tablet PO ×2 (09:40→15:48)
[2018-11-11 09:43] VITALS: BP 145/84; PULSE 67; RESP 18; TEMP 37.1; O2SAT 100
--- NOTE | 2018-11-11 14:22 | PCM.PROGNOTE ---
Patient Problems: Active and Suspected Problems (Last Reviewed 11/05/18 @ 12:26 by Sloane Schwartz) Diarrhea (Acute) Hypokalemia (Acute) CINV (chemotherapy-induced nausea and vomiting) (Acute) Diarrhea (Acute) Subjective: 53-year-old female with stage IV invasive lobular carcinoma of the breast with metastases to the brain, bone and liver. Being treated by Dr. Pak. Admitted to the hospital with intractable nausea vomiting and diarrhea for the past 3 weeks. Taking Xeloda and lapatinib-Capecitabine - on hold from 11/06 due to N/V/D. Sees Dr. Anderson for chronic pain management. All events the past 24 hours been reviewed. Afebrile since admission. Vital signs are stable and she is 100% saturated on room air currently. She was able to take 2235 cc yesterday with no emesis. All labs personally reviewed. Sodium is mildly increased at 145 and the chloride is 119. Potassium is 3.6 and the BUN is 3 with a creatinine of 0.49, down from 0.84 on 11/10/2018. Phosphorus and magnesium are normal today. She rates her pain at a 6?7 today. On a good day her pain is about a 2. She is on a buprenorphine patch which she does not feel works as well as the Butrans patch she has had in the past but her insurance will not pay for this except every 28 days and so she is bridging with buprenorphine. She tolerated the Roxanol sublingual last night and feels it is helping. No nausea today and no emesis. No diarrhea. Appetite is better. Objective: PHYSICAL EXAM: GENERAL: alert, oriented X 3, Cooperative,looks better today......has better color in her face and is with a room full of company ORAL: dry mucosa, no mucosal lesions NECK: No JVD, supple, trachea midline LUNGS: CTA, symmetric chest expansion, diminished HEART: RRR, Normal S1 and S2, no rub, no gallop, no murmurs ABDOMEN: soft, NT, ND, BS present, no guarding with palpation EXTREMITIES: no edema, no cyanosis, no calf tenderness SKIN: No rashes, no breakdown, many subcutaneous nodules NEUROLOGIC: no focal neurologic deficits PSYCH: appropriate, normal affect, pleasant - Physical Exam Vital Signs Temp Pulse Resp BP Pulse Ox 98.7 F 67 18 145/84 H 100 11/11/18 09:43 11/11/18 09:43 11/11/18 09:43 11/11/18 09:43 11/11/18 09:43 Oxygen Delivery Method Room Air Weight: 144 lb 6.409 oz Body Mass Index (BMI) 26.4 Intake and Output for Last 24 Hours 11/09/18 11/10/18 11/11/18 23:59 23:59 23:59 Intake Total 1420 / 1420 5674 / 5674 1016 / 1016 Output Total 4300 / 4300 1200 / 1200 Balance 1420 / 1420 1374 / 1374 -184 / -184 Laboratory Tests Past 24 Hrs 11/11/18 05:38 Sodium 149 H Potassium 3.6 Chloride 117 H Carbon Dioxide 24.0 Anion Gap 8 BUN 3 L Creatinine 0.49 L Estim Creat Clear Calc 107.43 Est GFR (MDRD) Af Amer 173 Est GFR (MDRD) Non-Af 143 BUN/Creatinine Ratio 6.2 L Glucose 80 Calcium 7.9 L Phosphorus 3.8 Magnesium 1.9 Medical Necessity - Tobacco Use Smoking Status: Former smoker Assessment/Plan All Active Problems (Last Reviewed 11/05/18 @ 12:26 by Sloane Schwartz) Diarrhea (Acute) Hypokalemia (Acute) CINV (chemotherapy-induced nausea and vomiting) (Acute) Diarrhea (Acute) Intractable nausea and vomiting (Acute) Nausea & vomiting (Acute) SIRS (systemic inflammatory response syndrome) (Acute) Chemotherapy-induced diarrhea (Resolved) Injury of foot, left (Resolved) Impressions 1. intractable N/V/D 2. severe dehydration 3. breast CA with mets to the brain, liver and the bone per the pt 4. HTN 5. Acute kidney injury secondary to intravascular volume depletion Schedule the Roxanol every 4 hours DC the IV fluids - she is urinating frequently continue the anti-emetics possible DC tomorrow if she continues to do well .....will follow up with Dr. Anderson and Dr. Pak at [facility]. Code Visit Inpatient E&M: 20553 Subs Hosp L2
[2018-11-11 15:50] VITALS: BP 156/98; PULSE 70; RESP 18; TEMP 36.6; O2SAT 95
[2018-11-11 21:05] VITALS: BP 144/90; PULSE 62; RESP 16; TEMP 36.8; O2SAT 99
[2018-11-12] MEDS: HYDROcodone Bitartrate/Apap 5/325 Tablet PO ×3 (00:09→22:35)
[2018-11-12 03:05] VITALS: BP 128/82; PULSE 71; RESP 16; TEMP 36.9; O2SAT 98
[2018-11-12] MEDS: morphine (oral solution) 10MG/0.5ML Syringe 10 MG SL/PO ×3 (03:17→13:58)
[2018-11-12] MEDS: Ondansetron 4 MG/2 ML Vial IV (08:45)
[2018-11-12] MEDS: 0.9% NaCl VAD Flush 10 ML IV ×2 (08:46→18:42)
[2018-11-12 09:40] VITALS: BP 151/87; PULSE 70; RESP 18; TEMP 36.8; O2SAT 96
[2018-11-12] MEDS: Pantoprazole Sodium 20 MG Tablet PO (11:11)
[2018-11-12] MEDS: Enoxaparin 40 MG/0.4 ML Syringe SC (11:12)
[2018-11-12] MEDS: Ibuprofen 600 MG Tablet PO ×2 (12:15→18:46)
--- NOTE | 2018-11-12 12:48 | PCM.PROGNOTE ---
Subjective: Chief complaint: Follow-up after admission for intractable nausea and vomiting as well as diarrhea complicated by acute kidney injury in context of history of stage IV metastatic breast cancer on chemotherapy. Patient seen and examined. No acute events overnight. This morning, she complained of headache and again started having nausea. She was given [place] this morning as well as Zofran but she continued to have headache and nausea and she threw up once. She does not think that she can go home today and she is afraid that she will come back because of the intractable nausea and vomiting. Her vital signs are stable. - Physical Exam General: Alert, Oriented x3, Cooperative, No apparent distress HEENT: Atraumatic, PERRLA, EOMI, Normocephalic Oral: Moist Mucosa, No Gingival or Mucosal Lesions/ Ulcerations Neck: Supple, No JVD, Negative Carotid Bruits, Trachea Midline, Thyroid Normal Size and Texture Lungs: Clear to auscultation, No rhonchi, No wheeze, No rales, Diminished Cardiovascular: Regular rate, Regular Rhythm, Normal S1, Normal S2, PMI Normal Abdomen: Bowel Sounds Present, Soft, Non Tender, Non-Distended, No Hepato-splenomegaly Extremities: No clubbing, No cyanosis, Edema - Trace edema. Skin: No rashes, No breakdown Lymphatic: No Cervical, Supraclavicular, or Inguinal Adenopathy Neurological: Cranial nerves II-XII grossly intact, Motor Exam 5/5 strength throughout Psych/Mental Status: Normal Affect, Appropriate, Alert and oriented to time, place, person, mood and affect Vital Signs Temp Pulse Resp BP Pulse Ox 98.2 F 70 18 151/87 H 96 11/12/18 09:40 11/12/18 09:40 11/12/18 09:40 11/12/18 09:40 11/12/18 09:40 Oxygen Delivery Method Room Air Weight: 144 lb 6.409 oz Body Mass Index (BMI) 26.4 Intake and Output for Last 24 Hours 11/10/18 11/11/18 11/12/18 23:59 23:59 23:59 Intake Total 5674 / 5674 2519 / 2519 1400 / 1400 Output Total 4300 / 4300 2650 / 2650 1850 / 1850 Balance 1374 / 1374 -131 / -131 -450 / -450 Medical Necessity - Tobacco Use Smoking Status: Former smoker Assessment/Plan All Active Problems (Last Reviewed 11/05/18 @ 12:26 by Sloane Schwartz) CINV (chemotherapy-induced nausea and vomiting) (Acute) This is a 53 years old female patient presented to the emergency room because of persistent/intractable nausea and vomiting with diarrhea for 3 weeks which is attributed to chemotherapy that she has been receiving for stage IV metastatic breast cancer and she was found to have severe dehydration as well. #1 intractable nausea/vomiting/diarrhea: Attributed to chemotherapy. She has been on IV fluids, IV Zofran both scheduled and as needed. Reportedly, patient got better over the weekend but today, she started having nausea and vomiting again as well as headache. Her vital signs are stable. Her CBC and BMP improved. Plan to continue same treatment, continue Zofran and Compazine, give Motrin as needed for headache, advance diet as stated, possible DC home tomorrow. #2 severe dehydration: Secondary to above. Symptoms improved but today, she started having nausea again. Kidney function stable. #3 stage IV metastatic breast cancer with metastases to brain, liver and bone: Currently on chemotherapy which was held upon admission. Oncology is following. #4 hypertension: Blood pressure stable, she is not on any medication at this time. #5 chronic pain syndrome: Continue buprenorphine, [place] and fentanyl. #6 DVT prophylaxis: Subcu Lovenox. This note was generated with [employer] dictation software. It may contain incorrect words, spelling, and punctuation that were not noted in checking the note before signing. Code Visit Inpatient E&M: 30294 Subs Hosp L2
[2018-11-12] MEDS: Ondansetron 8 MG Tablet PO (13:52)
[2018-11-12 14:01] VITALS: BP 137/88; PULSE 91; RESP 18; TEMP 37.1; O2SAT 98
[2018-11-12] MEDS: proCHLORPERazine 10 MG/2 ML Vial IV (18:42)
[2018-11-12 20:30] VITALS: BP 146/103; PULSE 74; RESP 14; TEMP 36.3; O2SAT 96
[2018-11-13 02:23] VITALS: BP 160/98; PULSE 64; RESP 16; TEMP 36.2; O2SAT 97
[2018-11-13] MEDS: Ibuprofen 600 MG Tablet PO (02:47)
[2018-11-13] MEDS: HYDROcodone Bitartrate/Apap 5/325 Tablet PO (06:09)
--- NOTE | 2018-11-13 08:14 | PCM.DC ---
- Discharge Diagnoses Current Active Problems: Current Active and Chronic Problems (Last Reviewed 11/05/18 @ 12:26 by Sloane Schwartz) Stage IV carcinoma of breast (Chronic) You will use the following diet at home:: Regular Your food should be the consistency of: Regular Discharge Activity: Return to Normal Activity Weight Bearing Status: Weight bearing as tolerated Call your doctor if you observe: Fever of 101 or Higher, Shortness of breath, Dizziness, Fainting spells, Chest pain, Increased palpitations (irregular heartbeat), Uncontrolled pain Additional Instructions: Please stop taking your cancer treatment, tykerb and Xeloda, until you see your cancer doctor. Allergies/Adverse Reactions: Allergies No Known Allergies Allergy (Verified 11/09/18 11:15) Medications to take at Discharge Hydrocodone Bitart/Apap 5-325 [[place] 5/325] 1 tablet PO Q6H PRN PRN #10 tablet 10/18/17 Lidocaine/Prilocaine [Lidocaine-Prilocaine Cream] 30 gm TP DAILY PRN PRN #1 cream..g. 10/19/17 Fentanyl [Subsys] 1 each SL Q6H 06/04/18 Buprenorphine [Butrans 20 Mcg/Hr] 1 patch TOPICAL TU 07/02/18 Loperamide [Imodium] 2 mg PO Q2H PRN PRN 30 Days #30 cap 08/15/18 Omeprazole [Prilosec] 20 mg PO DAILY 30 Days #30 cap 08/15/18 Docusate Sodium [Colace] 100 mg PO PRN PRN 10/03/18 Acetaminophen [Tylenol] 325 mg PO PRN PRN 11/09/18 Aspirin/Acetaminophen/Caffeine [Excedrin Extra Strength Caplet] 2 tab PO PRN PRN 11/09/18 Capecitabine [Xeloda] 1,000 mg PO BID 11/09/18 Lapatinib Ditosylate [Tykerb] 1,000 mg PO DAILY 11/09/18 Ibuprofen [Motrin] 600 mg PO Q8H PRN PRN #30 tablet 11/13/18 The following prescriptions were given: Ibuprofen [Motrin] 600 mg PO Q8H PRN PRN #30 tablet PRN Reason: Headache, pain Primary Care Physician: Eric Granados III, MD [Primary Care Provider] - Please follow up with your Primary Care Physician in: 1-2 weeks. Test Results: Test results from this visit will be discussed in further detail at your follow-up appointment, if applicable. Please Follow Up With: Carolina Pak MD When: as scheduled.
[2018-11-13] MEDS: 0.9% NaCl VAD Flush 10 ML IV (08:49)
[2018-11-13] MEDS: Pantoprazole Sodium 20 MG Tablet PO (09:16)
[2018-11-13 09:18] VITALS: BP 139/89; PULSE 90; RESP 16; TEMP 36.6; O2SAT 98
--- NOTE | 2018-11-13 14:08 | DS.PCM_ITS ---
Discharge Date and Diagnosis Date of Admission: 11/09/18 Date of Discharge: 11/13/18 - Primary Discharge Diagnosis #1 chemotherapy-induced intractable nausea and vomiting. #2 severe dehydration. #3 stage IV metastatic breast cancer with metastases to brain, liver and bone. - Secondary Discharge Diagnosis Chronic Problems (Last Reviewed 11/05/18 @ 12:26 by Sloane Schwartz) Anorexia (Chronic) Hypertension (Chronic) Encounter for monitoring cardiotoxic drug therapy (Chronic) Stage IV carcinoma of breast (Chronic) Anemia (Chronic) COPD (chronic obstructive pulmonary disease) (Chronic) Brain metastases (Chronic) Cerebral aneurysm (Chronic) Primary cancer of left female breast (Chronic) Regional lymph node metastasis present (Chronic) Bone metastases (Chronic) Hospital Course and Treatment Imaging Results: Clinical Impression(s) from Imaging Studies Chest X-Ray 11/09/18 15:20 IMPRESSION: No interval change and no acute pathology. Electronically Signed: Vamsi Kline MD at 15:45 EST , Service support , Dr. Pak, oncology. Operations: None Procedures: None Summary of Care Provided: Patient seen and examined on day of discharge and appeared to be stable to be discharged home. She denied any more headache, nausea and vomiting resolved. Her vital signs are stable. The patient is a 53 year old F admitted because of intractable nausea and vomiting with diarrhea for 3 weeks and it is attributed to chemotherapy that she has been receiving for stage IV metastatic breast cancer. Patient has been on Xeloda and Tykerb for stage IV metastatic breast cancer. Patient admitted for intractable nausea and vomiting as well as severe dehydration, treated with IV fluids, IV antiemetics and IV pain medications. Oncology consulted and recommended to discontinue chemotherapy this time. In spite of extensive and aggressive treatment, patient continued to be symptomatic with significant nausea and vomiting as well as headache. With aggressive treatment, his symptoms improved. She was able to tolerate diet. Her routine blood work was unremarkable. Her LFT and lipase were normal. Urinalysis showed no evidence of acute cystitis. Chest x-ray showed no acute findings. Patient symptoms improved, discharged home in a stable medical condition, discharged on Motrin as needed for pain and headache, discharged on Zofran as needed for pain, instructed to stop taking her chemotherapy at this time based on oncology recommendations, continued her other chronic home medications without any changes, plan to follow-up with oncology as scheduled, follow-up with PCP in 1-2 weeks. - Physical Exam General: Alert, Oriented x3, Cooperative, No apparent distress HEENT: Atraumatic, PERRLA, EOMI, Normocephalic Oral: Moist Mucosa, No Gingival or Mucosal Lesions/ Ulcerations Neck: Supple, No JVD, Negative Carotid Bruits, Trachea Midline, Thyroid Normal Size and Texture Lungs: Clear to auscultation, No rhonchi, No wheeze, No rales, Diminished Cardiovascular: Regular rate, Regular Rhythm, Normal S1, Normal S2, PMI Normal Abdomen: Bowel Sounds Present, Soft, Non Tender, Non-Distended, No Hepato- splenomegaly Extremities: No clubbing, No cyanosis, No edema Skin: No rashes, No breakdown Lymphatic: No Cervical, Supraclavicular, or Inguinal Adenopathy Neurological: Cranial nerves II-XII grossly intact, Neuro grossly intact Psych/Mental Status: Normal Affect, Appropriate Vital Signs Temp Pulse Resp BP Pulse Ox 97.9 F 90 16 139/89 H 98 11/13/18 09:18 11/13/18 09:18 11/13/18 09:18 11/13/18 09:18 11/13/18 09:18 Oxygen Delivery Method Room Air Weight: 144 lb 6.409 oz Body Mass Index (BMI) 26.4 Intake and Output for Last 24 Hours 11/11/18 11/12/18 11/13/18 23:59 23:59 23:59 Intake Total 2519 / 2519 1900 / 1900 400 / 400 Output Total 2650 / 2650 1850 / 1850 Balance -131 / -131 50 / 50 400 / 400 Discharge Activity: Return to Normal Activity Weight Bearing Status: Weight bearing as tolerated Call your doctor if you observe: Fever of 101 or Higher, Shortness of breath, Dizziness, Fainting spells, Chest pain, Increased palpitations (irregular heartbeat), Uncontrolled pain Home Medications: Medications to take at Discharge Hydrocodone Bitart/Apap 5-325 [[place] 5/325] 1 tablet PO Q6H PRN PRN #10 tablet 10/18/17 Lidocaine/Prilocaine [Lidocaine-Prilocaine Cream] 30 gm TP DAILY PRN PRN #1 cream..g. 10/19/17 Fentanyl [Subsys] 1 each SL Q6H 06/04/18 Buprenorphine [Butrans 20 Mcg/Hr] 1 patch TOPICAL TU 07/02/18 Loperamide [Imodium] 2 mg PO Q2H PRN PRN 30 Days #30 cap 08/15/18 Omeprazole [Prilosec] 20 mg PO DAILY 30 Days #30 cap 08/15/18 Docusate Sodium [Colace] 100 mg PO PRN PRN 10/03/18 Acetaminophen [Tylenol] 325 mg PO PRN PRN 11/09/18 Aspirin/Acetaminophen/Caffeine [Excedrin Extra Strength Caplet] 2 tab PO PRN PRN 11/09/18 Capecitabine [Xeloda] 1,000 mg PO BID 11/09/18 Lapatinib Ditosylate [Tykerb] 1,000 mg PO DAILY 11/09/18 Ibuprofen [Motrin] 600 mg PO Q8H PRN PRN #30 tablet 11/13/18 Following Prescrptions Were Given to Patient: Ibuprofen [Motrin] 600 mg PO Q8H PRN PRN #30 tablet PRN Reason: Headache, pain Primary Care Physician: Eric Granados III, MD [Primary Care Provider] - Please follow up with your Primary Care Physician in: 1-2 weeks. Please Follow Up With: Carolina Pak MD When: as scheduled. Disposition: Home Minutes spent on discharge:: 28 Patient Condition:: Stable Medical Necessity - Tobacco Use Smoking Status: Former smoker Meaningful Use Info Meaningful Use Diagnoses (Choose all that apply): None applicable Code Visit Inpatient E&M: 51174 Disch Hosp
--- NOTE | 2018-11-15 16:19 | CASEMGMT ---
RN CM DC PHONE CALL DC DATE:11/13/18 DC DISPOSITION: Home LACE/STRATA: 07/28 Intro role of CM to patient in room. Pt states she is feeling well, does not have questions re: dc instructions, prescriptions or follow up. No care improvement suggestions given. Phylicia QUIGLEYN RN ACM
== END 2018-11-13 09:35 | disposition home or self-care (01) | DRG 422 ==
LOC: ED 12:30 → MS3 15:47
PROVIDERS: Internal Medicine; Admitting Provider Internal Medicine; Emergency Provider Emergency Medicine; Family Provider Family Medicine; PCP Family Medicine; Referring Provider Internal Medicine; Visit Provider Hospitalist
DX: E86.0 Dehydration (principal); R11.2 Nausea with vomiting, unspecified; K52.1 Toxic gastroenteritis and colitis; C50.919 Malignant neoplasm of unspecified site of unspecified female breast; C78.7 Secondary malignant neoplasm of liver and intrahepatic bile duct; C79.31 Secondary malignant neoplasm of brain; C79.51 Secondary malignant neoplasm of bone; T45.1X5A Adverse effect of antineoplastic and immunosuppressive drugs, initial encounter; N17.9 Acute kidney failure, unspecified; I10 Essential (primary) hypertension; Z87.891 Personal history of nicotine dependence
CPT/HCPCS: 71046; 80048; 80053; 81001; 83605; 83690; 83735; 84100; 84484; 85025; 93005; 96361; 96365; 96374; 97161; 97802; 99282; J7030; A4216; J2405; J3490

== ENCOUNTER 2018-11-28 15:48 | Emergency (ER) | payer MEDICAID, SELFPAY ==
[2018-05-15 10:11] VITALS: BMI 25.3
[2018-11-28 12:58] VITALS: BMI 26.2
[2018-11-28 15:50] VITALS: BP 126/74; PULSE 70; RESP 18; TEMP 36.3; O2SAT 97; BMI 25.9
--- NOTE | 2018-11-28 16:24 | CT_ITS ---
STUDY: CT CERVICAL SPINE WITHOUT CONTRAST REASON FOR EXAM: Female, 53 years old. Headache with neck pain. RADIATION DOSAGE (If Supplied By Facility): CTDIvol = ( 20.28 ) mGy, DLP = ( 388.66 ) mGycm TECHNIQUE: High resolution transaxial imaging was performed without contrast material. Sagittal and coronal images were reconstructed. Individualized dose optimization techniques were used for this CT. COMPARISON: None FINDINGS: Normal craniovertebral junction. There are degenerative changes of the anterior atlantoaxial articulation. There are ill-defined sclerotic and radiolucent foci throughout the bones consistent with bone metastases. There is straightening of the normal cervical lordosis. C2-3: Normal endplates. Normal disc height and morphology. Normal central canal and intervertebral neuroforamina. C3-4: Normal endplates. Normal disc height and morphology. Normal central canal and intervertebral neuroforamina. C4-5: There is endplate spondylosis. Normal central canal and intervertebral neuroforamina. C5-6: There is a posterior disc osteophyte associated with stenosis of the central canal . C6-7: There is a central disc protrusion associated with stenosis of the central canal. C7-T1: Normal endplates. Normal disc height and morphology. Normal central canal and intervertebral neuroforamina. Normal visualized soft tissue structures. CT/Spine Cervical without Contras IMPRESSION: Diffuse bone metastases. Degenerative changes. Electronically Signed: Amanda Tenorio MD at 19:44 EST Tel , Service support ,
--- NOTE | 2018-11-28 16:24 | CT_ITS ---
We are attempting to reach Berhane Mason MD to discuss findings. An addendum with communication details will be sent when the communication is complete. STUDY: CTA OF THE BRAIN REASON FOR EXAM: Female, 53 years old. Cerebral aneurysm RADIATION DOSAGE (If Supplied By Facility): CTDIvol = ( 27.93 ) mGy, DLP = ( 1135.26 ) mGycm TECHNIQUE: CT angiography was performed with a multi-detector CT scanner. Data acquisition was obtained from the skull base through the vertex following intravenous administration of Isovue 370 100ML IV. MIP images were reconstructed from the axial data set. Post-processing of the angiographic images was performed, with multiplanar reformation and 3D reconstruction. Individualized dose optimization techniques were used for this CT. COMPARISON: None. FINDINGS: Normal bilateral petrous carotid arteries. Normal right cavernous carotid artery with a normal supraclinoid bifurcation. Normal left cavernous carotid artery with a normal supraclinoid bifurcation. Normal right A1 segments of the anterior cerebral artery. Normal left A1 segments of the anterior cerebral artery. Normal intact anterior communicating artery (ACOM). Normal bilateral A2 segments of the anterior cerebral arteries. Normal right M1 and M2 segments of the middle cerebral arteries, with a normal M1 bifurcation. Normal left M1 and M2 segments of the middle cerebral arteries, with a normal M1 bifurcation. Posterior communicating arteries are not visualized consistent with normal developmental variant Normal bilateral vertebral arteries. Normal basilar artery with a normal basilar bifurcation. The visualized bilateral superior cerebellar (SCA) arteries are normal. Normal bilateral P1, P2 and visualized P3 segments of the posterior cerebral arteries. 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 There is no demonstrated abnormality of the visualized brain. 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
[2018-11-28] MEDS: 0.9% Normal Saline 1,000 ML 1000 ML IV (16:45)
[2018-11-28] MEDS: Morphine 4 MG/ML Syringe IV (16:45)
[2018-11-28 18:08] VITALS: RESP 18
[2018-11-28 18:19] LABS: Absolute Lymphocyte Count 1.05 X10^3/ul (0.83-4.51); Absolute Neutrophil Count 3.5 X10^3/uL (2.0-7.7); Basophil# 0.03 X10^3/uL; Basophil% 0.6 % (0-1); Eosinophil# 0.04 X10^3/uL; Eosinophils% 0.7 % (0-5); Hematocrit 35.4 % (37-47); Hemoglobin 11.2 g/dl (12.0-15.0); Lymphocyte # 1.05 X10^3/ul (4.0); Lymphocyte % 19.3 % (19-41); Mean Corp Hgb Conc 31.6 g/gl (32-36); Mean Corpuscular Hgb 31.9 pg (27.0-32.0); Mean Corpuscular Volume 100.9 fL (81-99); Mean Platelet Vol. 9.1 fl (6.2-12.0); Monocyte# 0.79 X10^3/uL; Monocyte% 14.5 % (0-10); Neutrophil # 3.51 X10^3/uL (2.7-7.7); Neutrophil % 64.3 % (47-70); Platelet Count 243 K/mm3 (150-450); RBC Distribution Width CV 16.1 % (11.6-14.6); RBC Distribution Width SD 59.8 fl (35.1-43.9); Red Blood Count 3.51 M/mm3 (4.2-5.4); White Blood Count 5.5 K/mm3 (4.4-11.0)
[2018-11-28 18:21] LABS: POSITIVE COUNT NO; POSITIVE DIFFERENTIAL NO; POSITIVE MORPHOLOGY NO
[2018-11-28 18:24] LABS: Anion Gap 8 (5-15); BUN 5 mg/dL (7-18); BUN/Creat Ratio 9.7 RATIO (10-20); Calcium,Total 7.8 mg/dL (8.5-10.1); Chloride 118 mmol/L (98-107); Creatinine, Serum 0.52 mg/dL (0.55-1.02); EST Glomerular Filtration Rate 133 mL/min (>60); Est Glom Filt Rate - Afr Amer 161 mL/min (>60); Estimated Creatinine Clearance 101.23 ml/min; Glucose 76 mg/dL (74-106); Potassium 3.9 mmol/L (3.5-5.1); Sodium Level 147 mmol/L (136-145)
[2018-11-28 18:38] LABS: International Normalized Ratio 1.1; Partial Thromboplast Time 29.1 Seconds (24.1-36.2); Prothrombin Time (Protime)PT. 13.8 SECONDS (11.7-14.9)
[2018-11-28 20:24] LABS: M R Staph aureus DNA By PCR Negative (Negative); Probe Check PASS; Specimen Processing Control PASS; Staph aureus DNA By PCR POSITIVE (Negative)
--- NOTE | 2018-11-28 20:47 | ED.VISSUMM ---
- ER Visit Summary Date of Service: 11/28/18 Chief Complaint: Headache History of Present Illness: The patient is a 53 F with a gradually worsening headache over the past 2 days. The pain is in her occipital region and worse with movement. It radiates down into her neck. No thunderclap headache or sudden onset. No vomiting. No fevers. She does have a history of breast cancer which is metastatic with brain metastases. She also says she has a history of cerebral aneurysm which did not meet operative or treatment criteria. She is following with [facility] for this. She saw her oncologist nurse practitioner today and was referred to the emergency department for an evaluation for fracture or worsening metastatic disease. Physical Examination: Afebrile and vital signs unremarkable. Head and neck atraumatic. HEENT exam unremarkable. Cranial nerves grossly intact. Neck is tender in the occipital region but otherwise normal range of motion. No meningeal signs. Patient overall appears well. No photophobia. She does not appear to be in distress. Test Results: Labs all unremarkable. CT cervical spine showed metastatic disease but nothing acute. CTA showed a anterior communicating artery aneurysm measuring 3.8 x 4.6 mm. Emergency Department Course and Treatment: I discussed the patient with her oncology nurse practitioner. The patient initially wanted to be admitted for cancer scans, MRIs, and echocardiogram. She actually has plans to have this done as an outpatient. Her nurse practitioner was concerned for worsening metastatic disease or fracture. Patient was treated with pain medicine. Scans were done and showed the aneurysm as well as metastatic disease. There were no fractures. No bleeding. No sign of infection. I spoke with Dr. Vitale who was on-call for neurosurgery at [facility]. He advised that this aneurysm does not meet surgical criteria and she should follow-up as an outpatient with her neurosurgeon. Will attempt to push her images to [facility], if not we will give her a disc. Follow-up with oncology as planned. Follow-up with neurosurgeon. Call tomorrow. Treatment Plan: As above Disposition: Discharge Impression: 1. Headache 2. Metastatic breast cancer This note was generated with [employer] software. It may contain incorrect words, spelling, and punctuation that were not noted in review of the chart prior to signing ED Disposition - Plan for ED Patient: Referrals: Eric Granados III, MD [Primary Care Provider] -
--- NOTE | 2018-11-28 20:53 | DCINST.ED_ITS ---
ED Disposition - Plan for ED Patient: Instructions: ED Cephalgia Unspecified Additional Instructions: Follow-up with your oncologist and also follow-up with your neurosurgeon at [facility]
[2018-11-28 21:09] VITALS: RESP 18; O2SAT 98
== END 2018-11-28 21:10 | disposition home or self-care (01) ==
LOC: ED 16:31
PROVIDERS: Emergency Provider Emergency Medicine; Family Provider Family Medicine; PCP Family Medicine
DX: R51 Headache (principal); C50.919 Malignant neoplasm of unspecified site of unspecified female breast; C79.31 Secondary malignant neoplasm of brain; C79.51 Secondary malignant neoplasm of bone; J44.9 Chronic obstructive pulmonary disease, unspecified; I67.1 Cerebral aneurysm, nonruptured; I10 Essential (primary) hypertension; Z87.891 Personal history of nicotine dependence
CPT/HCPCS: 70496; 72125; 80048; 85025; 85610; 85730; 87070; 87075; 87077; 87186; 87205; 87640; 96361; 96374; 99282; J7030; Q9967; A4216

== ENCOUNTER → 2018-11-30 10:34 | Outpatient (CLI) | payer MEDICAID, SELFPAY ==
[2018-05-15 10:11] VITALS: BMI 25.3
[2018-11-27 10:50] VITALS: BMI 26.2
[2018-11-28 15:50] VITALS: BMI 25.9
--- NOTE | 2018-11-30 10:38 | NM_ITS ---
CLINICAL: Female, 53 years old. Breast cancer WHOLE BODY NUCLEAR BONE SCAN TECHNIQUE: Following the IV administration of 25 mCi of Tc MDP, whole body bone imaging was performed with a gamma camera following a three hour delay. COMPARISON STUDIES : NM - None. CR - Not available for review at this time. CT - Not available for review at this time. MR - Not available for review at this time. US - Not available for review at this time. FINDINGS: There are numerous foci of increased radionuclide deposition throughout the thoracic and upper lumbar spine as well as multiple bilateral ribs consistent with metastatic disease. Asymmetrically increased uptake is seen within the right lateral aspect of the skull although this may be artifactual.. Abnormal tracer uptake is also seen within the humeral heads bilaterally and sternum which may be consistent with metastatic disease as well. Similar findings are seen within the distal femur and proximal tibia bilaterally as well as the cervical spine bilateral sacral wings and ilium. Findings are similar to that seen on prior exam NM/Bone Scan Whole Body IMPRESSION: Extensive diffuse osseous metastasis without significant change since prior study Electronically Signed: Gilles Doan MD at 17:49 EST , Service support ,
--- NOTE | 2018-11-30 11:24 | MRI_ITS ---
STUDY: MRI BRAIN WITH AND WITHOUT CONTRAST REASON FOR EXAM: Female, 53 years old. Increased headache TECHNIQUE: Standardized multiplanar fat and water weighted pulse sequences were obtained. Gadavist 7 IV was administered for the contrast portion of the examination. COMPARISON: 10/01/2018 FINDINGS: There has been mild increase in size in some of the previously metastatic lesions there is a lesion in the right cerebellar hemisphere measures 10 mm in diameter on today's study it measured previously 9 mm in diameter. Most of the lesions remain stable in size. There is at least one a new lesion in the left basal ganglia measures 4 mm axial image #72. Series #13. Normal size of the ventricles and extra-axial spaces for the patient's age. Normal white matter tracts of the supratentorial brain. Normal bilateral basal ganglia. Normal thalami. There is no extra-axial fluid accumulation. Normal flow voids within the major intracranial circulation suggesting patency by spin echo criteria. Normal venous enhancement. Normal sella turcica, pituitary gland, infundibular stalk, optic chiasm and hypothalamus. Normal tectal plate and pineal gland. Normal midbrain, jose and medulla. Normal cerebellum. Normal basal cisterns. Normal bilateral temporal bones. Normal bilateral internal auditory canals. No demonstrated orbital abnormality, within the constraints of a routine brain study. Normal visualized paranasal sinuses. Normal calvarium and skull base. Normal visualized soft tissue structures. Normal visualized upper cervical spine. MRI/Brain W/WO Contrast IMPRESSION: There has been mild increase in size in some of the previously metastatic lesions , there is a lesion in the right cerebellar hemisphere measures 10 mm in diameter on today's study it measured previously 9 mm in diameter. Most of the lesions remain stable in size . There is at least one new lesion in the left basal ganglia measures 4 mm axial image #72. Series #13. Electronically Signed: Tray Hernandez, at 4:07 EDT Tel , Service support ,
== END ==
PROVIDERS: Family Provider Family Medicine; PCP Family Medicine; Referring Provider Internal Medicine Hematology & Oncology; Visit Provider Internal Medicine Hematology & Oncology
DX: C50.912 Malignant neoplasm of unspecified site of left female breast (principal); C79.51 Secondary malignant neoplasm of bone; C79.31 Secondary malignant neoplasm of brain
CPT/HCPCS: 70553; 78306; A9585; A4216

== ENCOUNTER → 2018-11-30 15:38 | Outpatient (CLI) | payer MEDICAID, SELFPAY ==
[2018-05-15 10:11] VITALS: BMI 25.3
[2018-10-03 09:46] VITALS: BMI 27.2
--- NOTE | 2018-11-30 11:00 | CT_ITS ---
STUDY: CT ABDOMEN AND PELVIS WITH CONTRAST REASON FOR EXAM: Female, 53 years old. Stage IV metastatic breast cancer. RADIATION DOSAGE (If Supplied By Facility): CTDIvol = ( 10.09 ) mGy, DLP = ( 762.29 ) mGycm TECHNIQUE: Transaxial images were obtained from the dome of the diaphragm to the symphysis pubis without oral contrast. Isovue 300 100ml IV was administered. Sagittal and coronal images were reconstructed. Individualized dose optimization techniques were used for this CT. COMPARISON: 08/02/2018. FINDINGS: The visualized lung bases are unremarkable. The visualized portions of the heart are within normal limits. The liver is borderline in size. No focal lesion is seen. Normal gallbladder and extrahepatic biliary system. Normal spleen. Normal pancreas. Normal bilateral adrenal glands. Normal right kidney. Normal left kidney. Normal visualized stomach. Normal small intestine. There is diffuse thickening of the colon particularly of the descending colon probably due to underdistention. Colitis is less likely. There is diverticulosis of the sigmoid colon. There is no evidence of acute diverticulitis. There is a well-defined lucency within the cecum which may represent a polyp less than seen on coronal images 62-64 series 604 and axial image 61 series 3. The appendix is visualized and appears normal. There is atherosclerotic calcification of the abdominal aorta with elongation and tortuosity, but without a demonstrated aneurysm. Normal inferior vena cava. Normal retroperitoneum. Normal urinary bladder. There is a small umbilical hernia containing fat. There again are extensive diffuse osteoblastic and osteolytic metastatic bone lesions unchanged since prior exam. There is mild compression of the posterior aspect of L1 vertebra with mild retropulsion again unchanged. CT/Abdomen/Pelvis W IV Cont ONLY IMPRESSION: 1. Extensive diffuse metastatic bony lesions unchanged since prior examination. 2. Otherwise no evidence of metastatic disease. 3. Questionable lucency within the cecum and adjacent to the origin of the appendix. Small polyp cannot be excluded. Electronically Signed: Sherif Tomas MD at 10:46 EST Tel , Service support ,
--- NOTE | 2018-11-30 11:17 | CT_ITS ---
STUDY: CT CHEST WITH CONTRAST REASON FOR EXAM: Female, 53 years old. History of metastatic stage IV breast cancer. Follow-up exam. RADIATION DOSAGE (If Supplied By Facility): CTDIvol = ( 10.09 ) mGy, DLP = ( 762.29 ) mGycm TECHNIQUE: Transaxial imaging was performed following intravenous administration of Isovue 300 100ml IV. Individualized dose optimization techniques were used for this CT. COMPARISON: 08/02/2018. FINDINGS: Right-sided Port-A-Cath is seen with its tip in the atriocaval junction region. The lungs again demonstrate emphysematous and scattered bullous changes. No focal infiltrate is seen. There is no evidence of pulmonary nodules. There is no demonstrated pleural abnormality. Normal heart and pericardium. There is a small normal size node in the aortopulmonic window. There is no evidence of adenopathy. Normal hilar regions. Normal enhanced pulmonary arteries. There is mild atherosclerotic tortuosity of the aortic arch and descending thoracic aorta. Extensive diffuse lytic and sclerotic lesions are again seen in the thoracic spine and sternum essentially unchanged since the prior examination. There again is mild anterior wedging of T11 and to a lesser extent T12 vertebrae. The upper abdomen is reported separately. There again is a well-defined mass in the subcutaneous fat of the left anterior abdominal wall measuring about 1.9 x 2.2 cm unchanged since the prior examination probably benign. CT/Chest WITH Contrast IMPRESSION: 1. Extensive metastatic bone disease unchanged since the prior examination. 2. No evidence of pulmonary metastases. 3. No infiltrate or pleural effusions are seen. Electronically Signed: Sherif Tomas MD at 11:11 EST Tel , Service support ,
--- OUTSIDE RECORDS SUMMARY | 2019-01-28 20:17 | XMS RPT_ITS | CCD ---
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 182-369 thou/cmm Low 12-26-2018 [facility] (22966) Comment: Performed By: #### PT #### [facility] [address] [place], [place] [address] RBC #/vol (Bld) 3.97 3.93-5.22 mil/cmm Normal 12-26-2018 [facility] (89007) Comment: Performed By: #### PT #### [facility] [address] [place], [place] [address] RBC morphology finding Nom Present Normal 12-26-2018 [facility] (Bld) [facility] ([id number]) Comment: Performed By: #### PT #### [facility] [address] [place] [address] RDW SD 48.6 36.4-46.3 fl High 12-26-2018 [facility] ([id number]) Comment: Performed By: #### PT #### [facility] [address] [place] [address] Rouleaux Slight Normal 12-26-2018 [facility] (16927) Comment: Performed By: #### PT #### [place] [address] Seg Neutrophil 83.0 % Normal 12-26-2018 [facility] (76329) Comment: Performed By: #### PT #### [place] [address] Toxic Granulation Few Normal 12-26-2018 [facility] (97019) Comment: Performed By: #### PT #### [place] [address] Toxic Vacuoles Few Normal 12-26-2018 [facility] (62890) Comment: Performed By: #### PT #### [place] [address] WBC #/vol (Bld) 50.63 3.98-10.04 thou/cmm Critically high 12-26-2018 [facility] (88498) Comment: Result Comment: Repeated AND verified Performed By: #### PT #### [place] [address] cult urine on 2018-12-26 Cult Urine Test performed at [facility] Normal 12-26-2018 [facility] ([id number]) ORGANISM: *Klebsiella pneumoniae (ID: 1) >100,000 CFU/ml Comment: Performed By: #### APTT #### [place] [address] cult blood on 2018-12-26 Cult Blood Test performed at [facility] Normal 12-26-2018 [facility] No growth System ([id number]) Comment: Performed By: #### P14 #### [place] [address] Cult Blood Test performed at [facility] Normal 12-26-2018 [facility] No [facility] System (33183) Comment: Performed By: #### P14 #### [facility] [address] [place] [address] consult on 2018-12-26 CONSULT HNO ID: [id number] Normal 12-26-2018 [facility] Service: [facility] ([id number]) Author Type: Physician Type: Consults Filed: 12/26/2018 11:03 PM Note Text: CONSULT: NEUROSURGERY SERVICE SERVICE DATE: 12/26/2018 SERVICE TIME: 7:48 PM REASON FOR CONSULT: SAH REQUESTING PHYSICIAN: Dr. Driscoll PRIMARY CARE PHYSICIAN: No primary care provider on file. Subjective Ms. 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 Became non communicative this am, was taken to [place] ED where CT head showed diffuse SAH and she was transferred to [facility] for further management FUNCTIONAL STATUS: Partially dependent PAST MEDICAL HISTORY Diagnosis Date - Breast cancer, stage 4 (HCC) No past surgical history on file. No family history on file. Social History Tobacco Use - Smoking status: Former Smoker Packs/day: 0.50 Years: 10.00 Pack years: 5.00 Types: Cigarettes - Smokeless tobacco: Never Used Substance Use Topics - Alcohol use: Yes Comment: rare - Drug use: Not on file Medications Prior to Admission: dexamethasone (DECADRON) 4 mg tablet TAKE 1 TAB TWICE A DAY FOR 5 DAYS THEN 1 TAB DAILY X 5 DAYS THEN 1 TAB EVERY OTHER DAY X 5 DAYS Disp: Rfl: 0 HYDROcodone-acetaminophen (NORCO) 5-325 mg per tablet TAKE 1 TABLET 3 TIMES A DAY BY MOUTH FOR 28 DAYS Disp: Rfl: 0 nystatin (MYCOSTATIN) 100,000 unit/mL suspension SWISH AND SWALLOW 5 MILLILITERS 4 TIMES A DAY FOR 14 DAYS Disp: Rfl: 3 senna (SENOKOT) 8.6 mg tab Take 8.6 mg by mouth. Disp: Rfl: dexamethasone (DECADRON) 2 mg tablet Take 2 mg by mouth. Disp: Rfl: albuterol HFA (PROVENTIL HFA, VENTOLIN HFA) 90 mcg/actuation inhaler Inhale 2 Puffs as instructed every 4 hours as needed for Wheezing/Shortness of Breath. With spacer please. Disp: 1 Inhaler Rfl: 0 Current Facility-Administered Medications Medication Dose Route Frequency - potassium chloride 80-120 mEq oral liquid 80-120 mEq ORAL/FEEDING TUBE PRN - potassium chloride iv piggyback 20 mEq/100 mL 20 mEq INTRAVENOUS PRN - magnesium sulfate in water 2 g in sterile water 50 ml 2 g INTRAVENOUS PRN - sodium glycerophosphate 45 mmol in NaCl 0.9% 250 mL (GLYCOPHOS) 45 mmol INTRAVENOUS PRN - calcium gluconate 4 g in NaCl 0.9% 250 mL 4 g INTRAVENOUS PRN - NaCl 0.9% iv infusion 100 mL/hr INTRAVENOUS CONTINUOUS - acetaminophen 650 mg tab(s) (TYLENOL) 650 mg ORAL/FEEDING TUBE q 4 H PRN - fentaNYL 50 mcg/mL 25-50 mcg injection (SUBLIMAZE) 25-50 mcg INTRAVENOUS q 2 H PRN - [START ON 12/27/2018] levETIRAcetam (KEPPRA) tab(s) 750 mg 750 mg ORAL/FEEDING TUBE BID - levETIRAcetam 1,000 mg in NaCl 0.9% 100 mL (KEPPRA) 1,000 mg INTRAVENOUS BID - hydrALAZINE 5-10 mg injection (APRESOLINE) 5-10 mg INTRAVENOUS q 15 MIN PRN - niCARdipine 40 mg in NaCl 0.9% 200 mL infusion (CARDENE) 5-15 mg/hr INTRAVENOUS CONTINUOUS - famotidine 20 mg tab(s) (PEPCID) 20 mg ORAL/FEEDING TUBE BID - ondansetron (PF) 4 mg injection (ZOFRAN) 4 mg INTRAVENOUS q 6 H PRN - iv contrast (radiology procedure) INTRAVENOUS DIRECTED PRN - niMODipine oral liquid 30 mg/mL 60 mg (NIMOTOP) 60 mg ORAL/FEEDING TUBE q 4 H - vancomycin iv piggyback 1 g in D5W 200 mL (VANCOCIN) 0.015 g/kg/dose INTRAVENOUS q 12 HR - piperacillin-tazobactam iv piggyback 3.375 g in dextrose (iso-osmotic) 50 mL (ZOSYN) 3.375 g INTRAVENOUS q 6 H - dexamethasone sodium phosphate 4 mg injection (DECADRON) 4 mg INTRAVENOUS q 6 H - sodium chloride-sodium acetate (50:50) iv infusion 2% (HYPERTONIC) INTRAVENOUS CONTINUOUS - iv contrast (radiology procedure) INTRAVENOUS DIRECTED PRN - iv contrast (radiology procedure) INTRAVENOUS DIRECTED PRN - iv contrast (radiology procedure) INTRAVENOUS DIRECTED PRN Allergies As of Date: 12/26/2018 Allergen Noted Reaction PROCHLORPERAZINE 12/26/2018 Unknown REGLAN [METOCLOPRAMIDE HCL] 12/26/2018 Shortness of Breath Fully Assessed 12/26/2018 COMPLETE REVIEW OF SYSTEMS: deferred due to patient's altered mental status Objective PHYSICAL EXAM: Physical Exam Performed: BP 132/76 Pulse 71 Temp 97.7 Resp 16 Ht 5' 2 (1.58m) Wt 149 lb 14.6 oz (68.0kg) SpO2 99% BMI 27.41 kg/(m2). General: Awake, alert,non verbal, but follows simple commands. CN: PERRL, EOMI and without nystagmus, facial strength is normal and symmetric, palate and tongue movements are intact and symmetric. SCM and trapezius strength normal. Motor: Normal tone, left leg weakness. Moves both arms equally, strong Reflexes: 2/4 and symmetric, plantar stimulation is flexor. Sensation: No evidence of neglect. DATA: Diagnostic tests reviewed for today's visit: Most recent labs and imaging results. CT head shows diffuse SAH and sdh above corpus callosum, mildly increased hydrocephalus since 12/21 CTA - acom aneurysm MRI brain 12/21/2018 - disseminated multiple brain metastases, hydrocephalus Impression/Recommendations Active Problems: SAH (subarachnoid hemorrhage) (HCC) POA: Yes Assessment AND Plan: * - patient is alert and follows simple commands - no immediate need for EVD - had a long discussion with patient's : given significant burden of metastatic breast ca, consideration is given to comfort measures to minimize suffering rather than prolonging life with invasive procedures. Plan is no EVD/coiling until further discussion with oncology/infectious dz team with respect to prognosis. is agreeable. SIGNATURE: Christina Velasquez MD PATIENT NAME: Lindsay Nair DATE: December 26, 2018 TIME: 9:48 PM PAGER: [phone] ckmb% on 2018-12-26 % CKMB - Normal 12-26-2018 [facility] ([id number]) Comment: Result Comment: %CKMB not calculated CKMB normal range : Normal < or = 5. Lawrence zone >5 & relative index < or = 4. AMI > 5 & relative index >4. Performed By: #### CKMB% #### [facility] [address] [place] [address] CK.MB mass conc < 1.0 ng/mL Normal 12-26-2018 [facility] ([id number]) Comment: Performed By: #### CKMB% #### [place] [address] CK enzyme act/vol 26 26-192 U/L Normal 12-26-2018 [facility] (88204) Comment: Performed By: #### CKMB% #### [place] [address] blood gas arterial on 2018-12-26 Base Excess 2.0 -3.0-3.0 mmol/L Normal 12-26-2018 [facility] ([id number]) Comment: Performed By: #### ABG #### [place] [address] HCO3 molar conc (Bld) 24.4 21.0-28.0 mmol/L Normal 12-26-2018 [facility] (15184) Comment: Performed By: #### ABG #### [place] [address] O2% Sat Arterial 95.6 96.0-100.0 % Low 12-26-2018 [facility] (23529) Comment: Performed By: #### ABG #### [place] [address] PCO2 Arterial 31.3 35.0-45.0 mm Hg Low 12-26-2018 [facility] (05495) Comment: Performed By: #### ABG #### [place] [address] pH Arterial 7.501 7.350-7.450 High 12-26-2018 [facility] (81497) Comment: Performed By: #### ABG #### [place] [address] PO2 Arterial 73.4 83.0-108.0 mm Hg Low 12-26-2018 [facility] (43962) Comment: Performed By: #### ABG #### [facility] [address] [place] [address] FIO2 21 % Normal 12-26-2018 [facility] ([id number]) Comment: Performed By: #### ABG #### [facility] [address] [place] [address] activated ptt on 2018-12-26 aPTT Coag time (Bld) 21.9 23.0-32.4 sec Low 12-26-2018 [facility] ([id number]) Comment: Result Comment: Unfractionated Heparin Therapeutic Ranges: Standard Heparin Nomogram: 53 to 78 seconds (anti-Xa level of 0.3 to 0.7 U/mL) Low Dose/ACS Nomogram: 49 to 67 seconds (anti-Xa level of 0.2 to 0.5 U/mL) Stroke Treatment Nomogram: 49 to 67 seconds (anti-Xa level of 0.2 to 0.5 U/mL) Note: The APTT therapeutic range has been determined for the current lot of laboratory APTT reagent in use throughout the [facility]. Performed By: #### APTT #### [facility] [address] [place] [address] xr chest 2v frontal/lat on 2017-11-24 XR CHEST 2V * * *Final Report* * *DATE OF EXAM: Normal 11-24-2017 [place] FRONTAL/LAT Nov 24 2017 10:52AM WOX [id number] - XR [facility] CHEST 2V FRONTAL/LAT / ACCESSION # [place] [id number] REASON: multiple ([id number]) diagnoses * * * * Physician Interpretation * * * * EXAMINATION: CHEST RADIOGRAPH (2 VIEW FRONTAL and LATERAL)Clinical History: Cough Other chest painMQ: [id number]_4Comparison: NoneRESULT:Lines, tubes, and devices: Right Mediport.Lungs and pleura: No consolidation. No lung mass. Minimal thickening of the fissures.Cardiomediastinal silhouette: Normal cardiomediastinal silhouette.IMPRESSION:Nonspecific minimal fissural thickening.Sugarcane Planter: MARK Transcribe Date/Time: Nov 24 2017 11:07ADictated by : ROBERTO TROTTER MDThis examination was interpreted and the report reviewed and electronically signed by: ROBERTO TROTTER MD on Nov 24 2017 11:09AM [id number] progress on 2017-11-24 PROGRESS HNO ID: [id number]: Kathrine Lane Normal 11-24-2017 [facility] Ervin[facility]: [place] ([id number]) (none)Author Type: TechnicianType: Progress NotesFiled: 11/24/2017 10:51 AMNote Text: Radiology Service Progress NotePATIENT NAME: Lindsay NairMRN: [id number] OF SERVICE: November 24, 2017TIME: 10:45 AMPATIENT IDENTITY VERIFICATION COMPLETED USING TWO (2) METHODS: Patientconfirmed name verbally and Date of .PATIENT GENDER DATA: Female. status: : NoBreastfeeding status: NO.PATIENT RELEVANT IMPLANT DATA REVIEWED: Not ApplicableRADIOLOGY DEPARTMENT: General X-ray: Exam(s) Completed: Chest X-RayPERIPHERAL IV DATA: Not applicableSIGNED BY: Kathrine Ervin [facility] 2017 10:45 AM PROGRESS HNO ID: [id number]: Normal 11-24-2017 [facility] Ernestina ([employer] Tender) RuttiService: [place] ([id number]) (none)Author Type: Nurse PractitionerType: Progress NotesFiled: 11/24/2017 11:25 AMNote Text:11/24/2017Patient presents with:CoughSUBJECTIVE: This is a 52 year old that is here today with her forchest tightness that started Monday with a cough that started 3 days ago(Monday). Cough is productive with green slimy and hard to get up. Shestates that she is being followed for breast CA stage 4 with mets at [facility] in [place], she called them this morning to discuss symptomsbecause she is planned to start chemo Monday and just completed radiationtreatment. They suggested that she be seen today to rule out pneumonia.She is being treated for thrush with a swish and swallow. She has had asore throat since that started. She has had some nasal congestion, norhinorrhea. Denies fever, chills, flu like symptoms, CP, SOB. She statesthat she is moving slower than her norm, but this is her new norm sincethe cancer diagnosis. She drinks a lot of water and juice throughout theday.PAST MEDICAL HISTORYDiagnosis Date- Breast cancer, stage 4 (HCC)ALLERGIES Review of patient's allergies indicates no known allergies.MEDICATIONSCurrent Outpatient Prescriptions:albuterol HFA (PROVENTIL HFA, VENTOLIN HFA) 90 mcg/actuation inhalerInhale 2 Puffs as instructed every 4 hours as needed forWheezing/Shortness of Breath. With spacer please.No current facility-administered medications for this visit.Medications and allergies reviewed by this provider.SOCIAL HISTORYSocial History Marital status: Spouse name: Years of education: Number of children:Social History Main Topics Smoking status: Former Smoker Packs/day: 0.50 Years: 10.00 Types: Cigarettes Smokeless status: Never Used Alcohol use: Yes Comment: rareREVIEW OF SYSTEMSsee HPIOBJECTIVE:BP 126/88 (BP Site: Right Arm, BP Position: Sitting, BP Cuff Size: RegularAdult) Pulse 72 Resp 14 Wt 56.7 kg (125 lb). Vital signs reviewed bythis provider.PHYSICAL EXAMINATION:General appearance: Well appearing, alert, in no acute distress,well-hydrated, well nourished.Head: Normocephalic, no masses, lesions, tenderness or abnormalitiesEyes: Anicteric sclera. Pupils are equally round and reactive to light.Ears: External ears normal, canals clear, TMs normalNose/Sinuses: Nares normal, septum midline, mucosa normal, no drainage orsinus tendernessOropharynx: Positive findings: thrush to tongue, throat and cheek mucosaNeck: Supple, no adenopathyLungs: Lungs clear to auscultation. No wheezing, rhonchi, ralesHeart: RRR without murmur, gallop, or rubs. No ectopyExtremities: No deformities, edema, skin discoloration, clubbing orcyanosis. Good capillary refill. , Pulses: 2+ASSESSMENT/PLAN:1. Cough - ICD9: 786.2, ICD10: R05 (primary diagnosis)- would like to rule in or out PNA- STAT CXR- No PNA on CXR- likely viral- OK to try OTC mucinex, also gave recipe for pineapple cough syrup- increase fluids, rest, and humidification- XR CHEST 2V FRONTAL/LAT- follow up if no improvement or worsening symptoms.2. Chest tightness - ICD9: 786.59, ICD10: R07.89- see above- XR CHEST 2V FRONTAL/LAT- CXR showed nonspecific minimal fissural thickening. Discussed with and she suggested CT and PFTs. Discussed this with the patientand and they would like to discuss this with the cancerspecialists she is following with first. She is overwhelmed with all oftreatment and is planning to schedule with PCP- Dr. Granados. She states thatshe will discuss this then or call if her specialists think that she needsthe further testing.DANIELA Zengov on 2017-11-24 CNOV Office Visit Normal 11-24-2017 [place] ([facility]AMPWS) [facility] ([id number]) 1965 FDate Time Provider Department11/24/17 10:20 AM ERNESTINA HICKS [facility] [place] your visit today, we recorded the following information about you: Pulse Respiration Blood pressure ([id number]) Weight 72/minute 14/minute 126/88 56.7 kgErnestina Hicks CNP 11/24/2017 11:25 AM Signed11/24/2017Patient presents with:CoughSUBJECTIVE: This is a 52 year old that is here today with her for chesttightness that started Monday with a cough that started 3 days ago (Monday).Cough is productive with green ANDquot;slimyANDquot; and hard to get up. Shestates that she is being followed for breast CA stage 4 with mets at [facility], she called them this morning to discuss symptoms because she isplanned to start chemo Monday and just completed radiation treatment. Theysuggested that she be seen today to rule out pneumonia. She is being treatedfor thrush with a swish and swallow. She has had a sore throat since thatstarted. She has had some nasal congestion, no rhinorrhea. Denies fever,chills, flu like symptoms, CP, SOB. She states that she is moving slower thanher norm, but this is her new norm since the cancer diagnosis. She drinks a lotof water and juice throughout the day.PAST MEDICAL HISTORYDiagnosis Date- Breast cancer, stage 4 (HCC)ALLERGIES Review of patient's allergies indicates no known allergies.MEDICATIONSCurrent Outpatient Prescriptions:albuterol HFA (PROVENTIL HFA, VENTOLIN HFA) 90 mcg/actuation inhaler Inhale 2Puffs as instructed every 4 hours as needed for Wheezing/Shortness of Breath.With spacer please.No current facility-administered medications for this visit.Medications and allergies reviewed by this provider.SOCIAL HISTORYSocial History Marital status: Spouse name: Years of education: Number of children:Social History Main Topics Smoking status: Former Smoker Packs/day: 0.50 Years: 10.00 Types: Cigarettes Smokeless status: Never Used Alcohol use: Yes Comment: rareREVIEW OF [employer] HPIOBJECTIVE:BP 126/88 (BP Site: Right Arm, BP Position: Sitting, BP Cuff Size: RegularAdult) Pulse 72 Resp 14 Wt 56.7 kg (125 lb). Vital signs reviewed by thisprovider.PHYSICAL EXAMINATION:General appearance: Well appearing, alert, in no acute distress, well-hydrated,well nourished.Head: Normocephalic, no masses, lesions, tenderness or abnormalitiesEyes: Anicteric sclera. Pupils are equally round and reactive to light.Ears: External ears normal, canals clear, TMs normalNose/Sinuses: Nares normal, septum midline, mucosa normal, no drainage or sinustendernessOropharynx: Positive findings: thrush to tongue, throat and cheek mucosaNeck: Supple, no adenopathyLungs: Lungs clear to auscultation. No wheezing, rhonchi, ralesHeart: RRR without murmur, gallop, or rubs. No ectopyExtremities: No deformities, edema, skin discoloration, clubbing or cyanosis.Good capillary refill. , Pulses: 2+ASSESSMENT/PLAN:1. Cough - ICD9: 786.2, ICD10: R05 (primary diagnosis)- would like to rule in or out PNA- STAT CXR- No PNA on CXR- likely viral- OK to try OTC mucinex, also gave recipe for pineapple cough syrup- increase fluids, rest, and humidification- XR CHEST 2V FRONTAL/LAT- follow up if no improvement or worsening symptoms.2. Chest tightness - ICD9: 786.59, ICD10: R07.89- see above- XR CHEST 2V FRONTAL/LAT- CXR showed nonspecific minimal fissural thickening. Discussed with and she suggested CT and PFTs. Discussed this with the patient obed and they would like to discuss this with the cancer specialists she isfollowing with first. She is overwhelmed with all of treatment and is planningto schedule with PCP- Dr. Granados. She states that she will discuss this then orcall if her specialists think that she needs the further testing.Ernestina Hicks, Idania Hicks CNP 11/24/2017 10:53 AM AddendumConsider humidifierContinue to drink plenty of waterOK to use OTC MucinexKeep coughing stuff up if you can so it doesn't settle in the lungs, take deepbreaths tooAll Natural DIY Pineapple Cough Syrup Yield: about a cupWhat You Will Need? 2 thick slices of fresh pineapple, peel removed, but core intact (about twogood cups)? 1 Tbsp honey? 1/2 tsp cayenne pepper (omit or reduce for children)? a thumb sized piece of low (omit or reduce for children), peeled andsliced or rough chopped? juice of 1 lemonInstructions1) Give the pineapple a rough chop, including the core, which is not onlyedible but particularly healthy2) Blend everything up in a wiper blender or food and beverage analyst until smooth.3) Use as is, or push the mixture through a mesh strainer to get a smoothersyrup.4) Keep in the refrigerator and take as needed.Note: Do not give anything with honey to children under 1 year old. If you havea persistent cough, seek medical attention. Recipe slightly adapted fromMercury Continuity.tvReferring Provider: SELF [200]Allergies As of Date: 11/24/2017(No Known Allergies)Date Reviewed: 11/24/2017Reviewed by: Narciso Bardales Ma - Fully AssessedReason for Visit: Cough [28]Primary Visit Diagnosis:Cough [R05] Other Visit Diagnosis:Chest tightness [R07.89]Order(s):XR CHEST 2V FRONTAL/LAT [[id number]] Order #: [id number] FUTUREPrescriptions as of 11/24/2017 Sig: DEXAMETHASONE 4 MG [...] 90 MCG/* Inhale 2 Puffs as instructed *Medication notes this encounter DEXAMETHASONE 4 MG TABLET [...] MonNov 24, 2017 11:04 AM [facility] ReceivedSig: Take 8.6 mg by mouth daily. DEXAMETHASONE 2 MG TABLET >> Narciso Bardales Ma 11/24/2017 11:04 AM >> NARCISO BARDALES MA MonNov 24, 2017 11:04 AM [facility] ReceivedSig: Take 2 mg by mouth daily.Problem List As Of Date: 11/24/2017(None) Other instructions from your clinician: Consider humidifier [...] healthy 2) Blend everything up in a wiper blender or food and beverage analyst until smooth. 3) Use as is, or push the mixture through a mesh strainer to get a smoother syrup. 4) Keep in the refrigerator and take as needed. Note: Do not give anything with honey to children under 1 year old. If you have a persistent cough, seek medical attention. Recipe slightly adapted from Mercury Continuity.tvDisposition: Return if symptoms worsen or fail to improve.Follow- up and Disposition History RecordedEncounter Number: [id number] Status:Closed by ERNESTINA HICKS on 11/24/17 Vital Signs Vital Sign Description Value / Unit Date Location The following section is limited to 5 entries per type and includes entries from the following time range: 20181226 - 20181226. Body temperature 36.4 12-26-2018 [facility] ([id number]) Encounters Date Type Reason Provider Location 11-24-2017 - Milla DO (INFUSION RN) [facility] 11-27-2017 [facility] [place] ([id number]) 12-26-2018 - Evaluation and Nontraumatic [facility] [place] 12-27-2018 management of subarachnoid [facility] inpatient hemorrhage, TEODORO DHILLON ([id number]) unspecified SOLOMON RIOS [facility] TEODORO RIOS 02-09-2018 Patient encounter Follow-up visit ANTONINO SHAH [facility] ([id number]) 01-29-2018 Patient encounter [facility] SHAH [place] [facility] ANTONINO Alberto [facility] ([id number]) 11-28-2018 - Telephone Headache; including [facility] Bed 11-28-2018 encounter migraine Planning Comment: Headache Procedures Procedure Name Date Provider Location Antibody screen 12-26-2018 [facility] ([id number]) Comment: Performed By: #### PT #### [facility] [address] [id number] Follow-up visit 02-09-2018 [facility] ([id number]) Plan of Treatment Plan Description Date Location INFLUENZA VACCINE (#1) INFLUENZA VACCINE (#1) 2018 [facility] ([id number]) COLON CANCER SCREENING COLON CANCER SCREENING 2017 [place] [facility] ([id number]) ZOSTER (SHINGLES) VACCINE ZOSTER (SHINGLES) VACCINE 2017 [place] (1 of 2) (1 of 2) [facility] (39768) LIPID SCREENING LIPID SCREENING 2007 [facility] ([id number]) MAMMOGRAM SCREENING MAMMOGRAM SCREENING 2007 [facility] (34039) PAP SMEAR DISCUSSION PAP SMEAR DISCUSSION 1988 [facility] (59301) TDAP (ADULT) TDAP (ADULT) 1986 [facility] (09311) TETANUS TETANUS 1985 [facility] (49847) HIV SCREENING DISCUSSION HIV SCREENING DISCUSSION 1980 [facility] (90503) The following information is from the original human readable content Health Maintenance Due Date Last Done Comments HIV SCREENING DISCUSSION 1980 TETANUS 1985 TDAP (ADULT) 1986 PAP SMEAR DISCUSSION 1988 LIPID SCREENING 2007 MAMMOGRAM SCREENING DISCUSSION 2007 COLON CANCER SCREENING DISCUSSION 2017 ZOSTER (SHINGLES) VACCINE (1 of 2) 2017 INFLUENZA VACCINE (#1) 2018 Payers Payer Name Policy Number Location [facility] MEDICAID [id number] [facility] ([id number]) [employer]ICAL M[employer]UAL xxxxxxxxxxxx LINDSAY NAIR MMO [id number] [facility] ([id number]) [id number] [facility] (36677) [id number] [facility] (66274) [id number] [facility] (51958) The following information is from the original human readable content Payer Benefit Plan / Subscriber ID Effective Dates Phone Address Type Group [employer] MMO xxxxxxxxxxxx 2017-Present ENCOUNTER GUARANTOR PAYER SUBSCRIBER SOURCE 02/09/2018 LINDSAY PRABHAKARB: Primary LINDSAY PRABHAKARB: [facility] Insurance:Pager [id number] [facility] cy Number: [place], [place] [id number] [address]Tlv: [phone] tive [phone]: () Date:[id number] [id number] () an Name:MANAGED CARE 01/29/2018 LINDSAY PRABHAKARB: Primary LINDSAY PRABHAKARB: [facility] Insurance:Pager [id number] [facility] cy Number: [place], [place] [id number] Rep[place] [address]Qie: [phone] tihl [phone]: () Date:[id number] [id number] () an Name:MANAGED CARE ENCOUNTER GUARANTOR PAYER SUBSCRIBER SOURCE 12/26/2018 LINDSAY Primary LINDSAY PRABHAKARB: [place] Person BREMONDB: Insurance:[id number] MEDICAIDPolicy Number: [place] [id number] Date: [address]Lwc: () Social History Type Social History Date Location Description Tobacco smoking status Current every day smoker 02-09-2018 [facility] ([id number]) Cigarettes smoked 02-09-2018 - [place] current (pack per day) 02-09-2018 [facility] ([id number]) - Reported Alcohol Comment 11-03-2017 [facility] (06038) Sex Assigned At Not on file [facility] ([id number]) The following information is from the original human readable content Tobacco Use Types Packs/Day Years Used Date Current Every Day Smoker Cigarettes 0.5 20 Smokeless Tobacco: Never Used Alcohol Use Drinks/Week oz/Week Comments Yes very occasional use Sex Assigned at Date Recorded Not on file Job Start Date Occupation Industry Not on file Not on file Not on file Travel History Travel Start Travel End No recent travel history available. No Social History Records Found Summary Purpose DATE CREATED AUTHOR AUTHOR'S ORGANIZATION 03/16/2018 [facility] Reason Comments Headache DATE CREATED AUTHOR AUTHOR'S ORGANIZATION 11/30/2018 [facility] DATE CREATED AUTHOR AUTHOR'S ORGANIZATION 12/31/2018 [facility] DATE CREATED AUTHOR AUTHOR'S ORGANIZATION 01/01/2019 [facility] Family History No Family History Records Found Advance Directives No Advanced Directives Records Found Additional Source Comments FOR RECORDS PERTAINING TO PATIENTS WHO ARE OR HAVE BEEN ENROLLED IN A CHEMICAL DEPENDENCY/SUBSTANCE ABUSE PROGRAM, SOME INFORMATION MAY BE OMITTED. This clinical summary was aggregated from multiple sources. Caution should be exercised in using it in the provision of clinical care. This summary normalizes information from multiple sources, and as a consequence, information in this document may materially changethe coding, format and clinical context of patient data. In addition, data may be omittedin some cases. CLINICAL DECISIONS SHOULD BE BASED ON THE PRIMARY CLINICAL RECORDS. [facility] provides no warranty or guarantee of the accuracy or completeness of information in this document. UNRECOGNIZED CONTENT PROVIDED BELOW FOR UNRECOGNIZED SECTION INFORMATION SOURCE DATE CREATED AUTHOR AUTHOR'S ORGANIZATION 01/01/2019 [facility] DATE CREATED AUTHOR AUTHOR'S ORGANIZATION 12/31/2018 [facility] DATE CREATED AUTHOR AUTHOR'S ORGANIZATION 11/30/2018 [facility] DATE CREATED AUTHOR AUTHOR'S ORGANIZATION 03/16/2018 [facility] UNRECOGNIZED CONTENT PROVIDED BELOW FOR UNRECOGNIZED SECTION Reason for Visit Reason Comments Headache
== END ==
PROVIDERS: Family Provider Family Medicine; PCP Family Medicine; Referring Provider Student in an Organized Health Care Education/Training Program; Visit Provider Student in an Organized Health Care Education/Training Program
DX: C50.912 Malignant neoplasm of unspecified site of left female breast (principal); C79.31 Secondary malignant neoplasm of brain; C79.51 Secondary malignant neoplasm of bone
CPT/HCPCS: 71260; 74177; Q9967; A4216

== ENCOUNTER → 2018-12-05 13:26 | Outpatient (CLI) | payer MEDICAID, SELFPAY ==
[2018-05-15 10:11] VITALS: BMI 25.3
[2018-11-27 10:50] VITALS: BMI 26.2
[2018-12-05 09:33] VITALS: BMI 26.7
--- NOTE | 2018-12-05 13:27 | ECHODONC_ITS ---
Reason For Study: High Risk Meds Procedure This was a 2D Doppler, Color Flow transthoracic echocardiogram. Myocardial strain analysis was performed in this exam to aid in the assessment of cardiac function. Exam performed in department. Left Ventricle Normal size and thickness. The estimated ejection fraction is 65 %. The global longitudinal strain is normal. The prior global longitudinal strain was -19 % . Right Ventricle Normal size and thickness. Normal systolic function. Atria Normal left atrium. Normal right atrium. Normal atrial septum. Mitral Valve The mitral valve is structurally normal. No prolapse or stenosis seen. Trivial mitral valve insufficiency. Tricuspid Valve Normal tricuspid valve. Trivial tricuspid valve insufficiency. Right ventricular systolic pressure estimated to be 24 mmHg. Aortic Valve Normal aortic valve. Trisinus/trileaflet aortic valve. Pulmonic Valve Normal pulmonic valve. Trivial pulmonic valve insufficiency. Great Vessels Normal aortic root. Normal arch. Normal inferior vena cava. Inferior vena cava collapse with sniff. Pericardium/Pleural No pericardial effusion. MMode/2D Measurements & Calculations LVIDd: 4.1 cm IVSd: 1.0 cm Ao root diam: 2.8 cm LVIDs: 2.6 cm LVPWd: 0.96 cm RVDd: 3.5 cm FS: 34.8 % LAV(MOD-bp): 30.7 ml LVAd ap4: 24.5 cm2 SV(MOD-sp4): 43.0 ml LAV(MOD-bp) Indexed: 18.4 ml/m2 EDV(MOD-sp4): 64.1 ml LAV(MOD-sp2): 27.3 ml EDV(sp4-el): 65.9 ml LAV(MOD-sp4): 32.3 ml LVAs ap4: 12.7 cm2 ESV(MOD-sp4): 21.1 ml ESV(sp4-el): 22.4 ml EF(MOD-sp4): 67.1 % EF(sp4-el): 66.0 % SV(sp4-el): 43.5 ml LA A4 area: 14.1 cm2 LA dimension(2D): 3.3 cm RA A4 area: 11.7 cm2 Doppler Measurements & Calculations MV E max demetrius: 85.7 cm/sec Lat Peak E' Demetrius: 7.0 cm/sec Med Peak E' Demetrius: 6.1 cm/sec MV A max demetrius: 94.9 cm/sec E/E' lat: 12.2 E/E' med: 14.1 MV E/A: 0.90 Ao V2 max: 146.7 cm/sec LV V1 max: 113.4 cm/sec PA V2 max: 106.1 cm/sec Ao max P.6 mmHg LV V1 max P.1 mmHg Ao V2 mean: 94.2 cm/sec Ao mean P.0 mmHg Ao V2 VTI: 28.5 cm TR max demetrius: 236.7 cm/sec TR max P.4 mmHg Interpretation Summary The estimated ejection fraction is 65 %. The global longitudinal strain is normal. The prior global longitudinal strain was -19 % . Trivial mitral valve insufficiency. Trivial tricuspid valve insufficiency. Right ventricular systolic pressure estimated to be 24 mmHg. Compared to echo report dated 09/04/2018, no appreciable changes noted. GLS of =19% is identical to previous echo. Ordering Physician: Carolina Pak Referring Physician: Carolina Pak Performed By: Yasmin Jones, SAROJ, RVT
== END ==
PROVIDERS: Family Provider Family Medicine; PCP Family Medicine; Referring Provider Internal Medicine Hematology & Oncology; Visit Provider Internal Medicine Hematology & Oncology
DX: C50.912 Malignant neoplasm of unspecified site of left female breast (principal); C79.31 Secondary malignant neoplasm of brain; C79.51 Secondary malignant neoplasm of bone; Z79.899 Other long term (current) drug therapy
CPT/HCPCS: 0399T; 93306

== ENCOUNTER 2018-12-21 09:55 | Inpatient (IN) | payer MEDICAID, SELFPAY ==
[2018-05-15 10:11] VITALS: BMI 25.3
[2018-12-19 15:24] VITALS: BMI 27.9
[2018-12-21] VITALS (10 sets, daily range): BP systolic 131–156; BP diastolic 81–94; PULSE 63–94; RESP 13–16; TEMP 36.6–37.5; O2SAT 93–100; BMI 27.3; BMI 28.5
--- NOTE | 2018-12-21 10:09 | RAD_ITS ---
STUDY: X-RAY CHEST REASON FOR EXAM: Female, 53 years old. Increasing weakness. History of breast cancer. TECHNIQUE: Single AP portable view of the chest. COMPARISON: Comparison is made with prior examination dated November 09, 2018. FINDINGS: A right-sided portacatheter is in situ with the tip in the proximal superior vena cava. EKG electrodes are seen. The lungs are clear and expanded. There is no demonstrated pleural abnormality. Normal size heart. Normal mediastinum and anjel. Normal visualized pulmonary arteries. There is atherosclerotic tortuosity of the aortic arch and descending thoracic aorta. Findings suggestive of metastatic deposits in the thoracic spine. Abnormal density of the proximal right humerus suggestive of metastatic deposits. There is no demonstrated abnormality of the visualized soft tissue structures of the upper abdomen. RAD/Chest 1 View (Portable) IMPRESSION: The lungs are clear. Findings suggest bony metastasis. Electronically Signed: Edgar Flannery, at 11:01 EDT , Service support ,
--- NOTE | 2018-12-21 10:09 | EKG12_ITS ---
Test Reason : DYSRHYTHMIA Blood Pressure : / mmHG Vent. Rate : 079 BPM Atrial Rate : 079 BPM P-R Int : 128 ms QRS Dur : 080 ms QT Int : 386 ms P-R-T Axes : 048 064 064 degrees QTc Int : 442 ms Normal sinus rhythm Nonspecific ST abnormality Abnormal ECG Confirmed by MAYRA DUMONT, DAVID ([id number]), fan mail editor MATT CARLOS ([id number]) on 12/24/2018 1:42:53 PM Referred By: Bran Granados Confirmed By:DAVID NUNEZ MD
--- NOTE | 2018-12-21 10:10 | CT_ITS ---
STUDY: CT BRAIN WITHOUT CONTRAST REASON FOR EXAM: Female, 53 years old. Altered mental status. Patient has a history of metastatic breast carcinoma. RADIATION DOSAGE (If Supplied By Facility): CTDIvol = ( 44.99 ) mGy, DLP = ( 745.49 ) mGycm TECHNIQUE: Transaxial CT imaging of the brain was performed without administration of intravenous contrast material. Individualized dose optimization techniques were used for this CT. COMPARISON: Comparison is made with prior MRI of the brain dated November 30, 2018. FINDINGS: Normal soft tissue structures. Normal calvarium. Mild degree of hydrocephalus involving the lateral ventricles, third ventricle and fourth ventricle. Dilatation of the temporal horns. There are areas of decreased attenuation within the white matter tracts of the supratentorial brain, consistent with microvascular disease changes. Normal basal ganglia and thalami. Normal brainstem. Patient is known to have a metastatic deposit in the right cerebellar hemisphere. Punctate calcifications are seen in both right and left lobes of the cerebellum with a heterogeneous density. A repeat CT scan following IV contrast is recommended for better evaluation of the abnormalities. There is no intracranial hemorrhage. There are no findings of an acute ischemic infarction. Normal visualized paranasal sinuses. CT/Brain/Head without Contrast IMPRESSION: The patient is known to have metastatic deposits in the cerebellum more prominent on the right side. Hydrocephalus. CT scan following intravenous contrast menstruation is recommended for further evaluation for better delineation of the metastatic deposits. Electronically Signed: Edgar Flannery, at 12:45 EDT , Service support ,
--- NOTE | 2018-12-21 10:11 | ED.VIS.GEN ---
History of Present Illness Chief Complaint: Weakness Informant: Patient, Family, PCP - Dr. Ulloa Onset: Yesterday Context: Gradual Onset Timing: Continuous Quality: weak Location: all over Current Severity: Severe Maximum Severity: Severe Worsened by: nothing Relieved by: nothing Associated Symptoms: acutely confused. nausea yesterday. incontinent of urine. fever. Narrative: Patient has stage IV metastatic breast cancer and started a new chemotherapeutic IV agent 3-4 days ago. Yesterday she was very nauseated all day, she started getting very confused quickly, developed some fevers last night, was incontinent of urine this morning, did not sleep well. states that she now is so weak, that she is unable to stand and is almost weight so she arrives by EMS. Her oncologist states that this new agent is a combination chemotherapeutic/immunotherapy agent and carries a known risk of urinary tract infections. She had an injection of Neulasta at the day after the agent was given. She complains of upper back and chest discomfort and a headache, states this is common for her with regards to her cancer pain. - Past Medical History (1) Hypertension Status: Chronic (2) Anemia Status: Chronic (3) COPD (chronic obstructive pulmonary disease) Status: Chronic (4) Cerebral aneurysm Status: Chronic (5) Stage IV carcinoma of breast Status: Chronic Past Medical History - Allergies and Home Meds Allergies/Adverse Reactions: Allergies metoclopramide [From Reglan] Allergy (Severe, Verified 12/21/18 10:06) Shortness of breath MENTAL STATUS CHANGE prochlorperazine [From Compazine] Adverse Reaction (Intermediate, Verified 12/21/18 10:06) Other on edge Primary Care Physician: Care Physician,No Primary [NON-STAFF] - Doctors: Dr. Ulloa - [facility] Lives: Spouse/ Significant Other Smoking Status: Former smoker - Family History Maternal Family History: Family History (Last Reviewed 12/11/18 @ 10:12 by Sloane Schwartz) Mother Heart disease Father Heart disease Aunt Breast cancer Family History: Reports: Cancer - Breast cancer in maternal aunt Review of Systems ROS: Unable to Obtain - limited due to ill/weak/confused General: Reports: Fever, Malaise Eyes: Denies: Visual changes - bilaterally, Diplopia ENT: Denies: Rhinorrhea, Sore throat Cardiovascular: Reports: Chest pain. Denies: Palpitations Respiratory: Denies: Dyspnea, Cough Gastrointestinal: Reports: Nausea - gone now, Vomiting - dry heaves yesterday. Denies: Abdominal pain Musculoskeletal: Reports: Back pain. Denies: Swelling Skin: Denies: Rash, Wounds Neurological: Reports: Headache, - - confused. Denies: Weakness, Numbness Physical Exam Vital Signs/Narrative: Vital Signs Temp Pulse Resp BP Pulse Ox 12/21/18 09:57 99.0 F 75 16 139/94 H 98 Inital Vital Signs reviewed: Yes General: Well nourished, Well developed, No Acute Distress - appears ill. in no distress. able to answer questions appropriately. Head: Normocephalic, Atraumatic Eyes: Perrl, EOMI ENT: No rhinorrhea, Dry mucous membranes - w/ thrush on tongue Neck: Supple - FROM, Nontender, No lymphadenopathy Cardiovascular: Regular rate, Regular rhythm, No murmurs. Negative for: Tachycardia Respiratory: No distress, CTA bilaterally, Chest nontender Abdomen: Soft, Nontender, Nondistended, Normal bowel sounds Back: Nontender, Normal Inspection. Negative for: CVA tenderness Extremities: Nontender, No edema Skin: Normal color, No rash, No Trauma Neurological: Alert, Cranial nerves II-XII grossly intact, Normal Strength - generally symmetrically weak. peripheral neuro exam nonfocal., Normal Sensation, Disoriented - to time. Negative for: Oriented x3 Psychological: Normal affect, Normal Mood Diagnostic/Tx/Re-eval Impressions Chest X-Ray 12/21/18 10:09 IMPRESSION: The lungs are clear. Findings suggest bony metastasis. Electronically Signed: Edgar Flannery, at 11:01 EDT , Service support , Brain CT 12/21/18 10:10 IMPRESSION: The patient is known to have metastatic deposits in the cerebellum more prominent on the right side. Hydrocephalus. CT scan following intravenous contrast menstruation is recommended for further evaluation for better delineation of the metastatic deposits. Electronically Signed: Edgar Flannery, at 12:45 EDT , Service support , 12/21/18 10:09 Chest 1 View (Portable) [RAD] Stat 12/21/18 10:10 CT Head [Brain/Head without Contrast] [CT] Stat 12/21/18 10:55 Mucosa - Nose Influenza Types A,B Direct FA ([facility]) - Final Laboratory Results 12/21/18 12/21/18 12/21/18 10:35 10:35 10:35 WBC 46.7 H* RBC 4.04 L Hgb 12.7 Hct 39.6 MCV 98.0 MCH 31.4 MCHC 32.1 RDW 14.7 H RDW Differential 52.1 H Plt Count 230 MPV 9.2 Neut % (Auto) Not Reportable Absolute Neuts (auto) Not Reportable Total Counted 100 Neutrophils % (Manual) 87 H Band Neutrophils % 3 Lymphocytes % (Manual) 2 L Monocytes % (Manual) 1 Basophils % (Manual) 1 Metamyelocytes % 5 H Myelocytes % 1 H Diff Path Review May foll Platelet Estimate ADEQUATE RBC Morphology NORM C+C PT 12.8 INR 1.0 APTT 34.7 Sodium 139 Potassium 3.7 Chloride 103 Carbon Dioxide 28.0 Anion Gap 8 BUN 9 Creatinine 0.60 Estim Creat Clear Calc 87.73 Est GFR (MDRD) Af Amer 137 Est GFR (MDRD) Non-Af 113 BUN/Creatinine Ratio 15.1 Glucose 80 Lactic Acid Calcium 9.1 Total Bilirubin 0.40 AST 23 ALT 18 Alkaline Phosphatase 106 Total Protein 6.9 Albumin 3.3 Globulin 3.6 Albumin/Globulin Ratio 0.9 Urine Color Urine Clarity Urine pH Ur Specific Hanson Urine Protein Urine Glucose (UA) Urine Ketones Urine Occult Blood Urine Nitrite Urine Bilirubin Urine Urobilinogen Ur Leukocyte Esterase Urine RBC Urine WBC Ur Squamous Epith Cells Urine Bacteria Urine Mucus 12/21/18 12/21/18 10:35 11:30 WBC RBC Hgb Hct MCV MCH MCHC RDW RDW Differential Plt Count MPV Neut % (Auto) Absolute Neuts (auto) Total Counted Neutrophils % (Manual) Band Neutrophils % Lymphocytes % (Manual) Monocytes % (Manual) Basophils % (Manual) Metamyelocytes % Myelocytes % Diff Path Review Platelet Estimate RBC Morphology PT INR APTT Sodium Potassium Chloride Carbon Dioxide Anion Gap BUN Creatinine Estim Creat Clear Calc Est GFR (MDRD) Af Amer Est GFR (MDRD) Non-Af BUN/Creatinine Ratio Glucose Lactic Acid 1.7 Calcium Total Bilirubin AST ALT Alkaline Phosphatase Total Protein Albumin Globulin Albumin/Globulin Ratio Urine Color Yellow Urine Clarity Sl. Cloudy Urine pH 7.0 Ur Specific Hanson 1.010 Urine Protein 15 H Urine Glucose (UA) Normal Urine Ketones 5 H Urine Occult Blood Negative Urine Nitrite Negative Urine Bilirubin Negative Urine Urobilinogen 1 H Ur Leukocyte Esterase Negative Urine RBC 0 SEEN Urine WBC 0 SEEN Ur Squamous Epith Cells 0-5 SEEN Urine Bacteria 0 SEEN Urine Mucus 0 SEEN - Rhythm Strip Rhythm Strip: Sinus Rhythm Rate: 80 Ectopy: None - EKG Initial EKG Interpretation: Sinus Rhythm, No Acute Injury Pattern, - - normal EKG - Medical Decision Making Patient was given IV fluids and labs, imaging obtained. No signs of any acute infection. She has a significant leukocytosis but this is explained likely by the Neulasta injection she received 2 days ago. The immature white blood cells. Cultures were obtained, lactate is within normal limits. Head CT shows cerebellar metastases that were previously known via MRI, and noted hydrocephalus. I discussed with the radiologist Dr. Flannery who compared it to the MRI, and notes that it is similar in appearance and does not appear to be acutely obstructing. Patient is hemodynamically stable. I discussed with Dr. Ulloa, her oncologist, who advises holding off on any antibiotics unless cultures return positive or she develops something new. She is extremely weak and still a little disoriented, and is unable to stand on her own or be discharged home. Her vital signs are stable and she is not hypertensive or bradycardic. She is clinically stable but still disoriented. Will admit to hospitalist. ED Disposition - Plan for ED Patient: Disposition: Acute Care Hospital [facility] Diagnosis: Delirium, Stage IV carcinoma of breast, Leukocytosis Referrals: Care Physician,No Primary [NON-STAFF] -
--- NOTE | 2018-12-21 10:15 | ED.DCSUM_ITS ---
History of Present Illness Chief Complaint: Weakness Informant: Patient, Family, PCP - Dr. Ulloa Onset: Yesterday Context: Gradual Onset Timing: Continuous Quality: weak Location: all over Current Severity: Severe Maximum Severity: Severe Worsened by: nothing Relieved by: nothing Associated Symptoms: acutely confused. nausea yesterday. incontinent of urine. fever. Narrative: Patient has stage IV metastatic breast cancer and started a new chemotherapeutic IV agent 3-4 days ago. Yesterday she was very nauseated all day, she started getting very confused quickly, developed some fevers last night, was incontinent of urine this morning, did not sleep well. states that she now is so weak, that she is unable to stand and is almost weight so she arrives by EMS. Her oncologist states that this new agent is a combination chemo therapeutic/immunotherapy agent and carries a known risk of urinary tract infections. She had an injection of Neulasta at the day after the agent was given. She complains of upper back and chest discomfort and a headache, states this is common for her with regards to her cancer pain. - Past Medical History (1) Hypertension Status: Chronic (2) Anemia Status: Chronic (3) COPD (chronic obstructive pulmonary disease) Status: Chronic (4) Cerebral aneurysm Status: Chronic (5) Stage IV carcinoma of breast Status: Chronic Past Medical History - Allergies and Home Meds Allergies/Adverse Reactions: Allergies metoclopramide [From Reglan] Allergy (Severe, Verified 12/21/18 10:06) Shortness of breath MENTAL STATUS CHANGE prochlorperazine [From Compazine] Adverse Reaction (Intermediate, Verified 12/21/18 10:06) Other on edge Primary Care Physician: Care Physician,No Primary [NON-STAFF] - Doctors: Dr. Ulloa - [facility]-On[facility] Lives: Spouse/ Significant Other Smoking Status: Former smoker - Family History Maternal Family History: Family History (Last Reviewed 12/11/18 @ 10:12 by Sloane Schwartz) Mother Heart disease Father Heart disease Aunt Breast cancer Family History: Reports: Cancer - Breast cancer in maternal aunt Review of Systems ROS: Unable to Obtain - limited due to ill/weak/confused General: Reports: Fever, Malaise Eyes: Denies: Visual changes - bilaterally, Diplopia ENT: Denies: Rhinorrhea, Sore throat Cardiovascular: Reports: Chest pain. Denies: Palpitations Respiratory: Denies: Dyspnea, Cough Gastrointestinal: Reports: Nausea - gone now, Vomiting - dry heaves yesterday. Denies: Abdominal pain Musculoskeletal: Reports: Back pain. Denies: Swelling Skin: Denies: Rash, Wounds Neurological: Reports: Headache, - - confused. Denies: Weakness, Numbness Physical Exam Vital Signs/Narrative: Vital Signs Temp Pulse Resp BP Pulse Ox 12/21/18 09:57 99.0 F 75 16 139/94 H 98 Inital Vital Signs reviewed: Yes General: Well nourished, Well developed, No Acute Distress - appears ill. in no distress. able to answer questions appropriately. Head: Normocephalic, Atraumatic Eyes: Perrl, EOMI ENT: No rhinorrhea, Dry mucous membranes - w/ thrush on tongue Neck: Supple - FROM, Nontender, No lymphadenopathy Cardiovascular: Regular rate, Regular rhythm, No murmurs. Negative for: Tachycardia Respiratory: No distress, CTA bilaterally, Chest nontender Abdomen: Soft, Nontender, Nondistended, Normal bowel sounds Back: Nontender, Normal Inspection. Negative for: CVA tenderness Extremities: Nontender, No edema Skin: Normal color, No rash, No Trauma Neurological: Alert, Cranial nerves II-XII grossly intact, Normal Strength - generally symmetrically weak. peripheral neuro exam nonfocal., Normal Sensation, Disoriented - to time. Negative for: Oriented x3 Psychological: Normal affect, Normal Mood Diagnostic/Tx/Re-eval Impressions Chest X-Ray 12/21/18 10:09 IMPRESSION: The lungs are clear. Findings suggest bony metastasis. Electronically Signed: Edgar Flannery, at 11:01 EDT , Service support , Brain CT 12/21/18 10:10 IMPRESSION: The patient is known to have metastatic deposits in the cerebellum more prominent on the right side. Hydrocephalus. CT scan following intravenous contrast menstruation is recommended for further evaluation for better delineation of the metastatic deposits. Electronically Signed: Edgar Flannery, at 12:45 EDT , Service support , 12/21/18 10:09 Chest 1 View (Portable) [RAD] Stat 12/21/18 10:10 CT Head [Brain/Head without Contrast] [CT] Stat 12/21/18 10:55 Mucosa - Nose Influenza Types A,B Direct FA (ROBERTO) - Final Laboratory Results 12/21/18 12/21/18 12/21/18 10:35 10:35 10:35 WBC 46.7 H* RBC 4.04 L Hgb 12.7 Hct 39.6 MCV 98.0 MCH 31.4 MCHC 32.1 RDW 14.7 H RDW Differential 52.1 H Plt Count 230 MPV 9.2 Neut % (Auto) Not Reportable Absolute Neuts (auto) Not Reportable Total Counted 100 Neutrophils % (Manual) 87 H Band Neutrophils % 3 Lymphocytes % (Manual) 2 L Monocytes % (Manual) 1 Basophils % (Manual) 1 Metamyelocytes % 5 H Myelocytes % 1 H Diff Path Review May foll Platelet Estimate ADEQUATE RBC Morphology NORM C+C PT 12.8 INR 1.0 APTT 34.7 Sodium 139 Potassium 3.7 Chloride 103 Carbon Dioxide 28.0 Anion Gap 8 BUN 9 Creatinine 0.60 Estim Creat Clear Calc 87.73 Est GFR (MDRD) Af Amer 137 Est GFR (MDRD) Non-Af 113 BUN/Creatinine Ratio 15.1 Glucose 80 Lactic Acid Calcium 9.1 Total Bilirubin 0.40 AST 23 ALT 18 Alkaline Phosphatase 106 Total Protein 6.9 Albumin 3.3 Globulin 3.6 Albumin/Globulin Ratio 0.9 Urine Color Urine Clarity Urine pH Ur Specific [place] Urine Protein Urine Glucose (UA) Urine Ketones Urine Occult Blood Urine Nitrite Urine Bilirubin Urine Urobilinogen Ur Leukocyte Esterase Urine RBC Urine WBC Ur Squamous Epith Cells Urine Bacteria Urine Mucus 12/21/18 12/21/18 10:35 11:30 WBC RBC Hgb Hct MCV MCH MCHC RDW RDW Differential Plt Count MPV Neut % (Auto) Absolute Neuts (auto) Total Counted Neutrophils % (Manual) Band Neutrophils % Lymphocytes % (Manual) Monocytes % (Manual) Basophils % (Manual) Metamyelocytes % Myelocytes % Diff Path Review Platelet Estimate RBC Morphology PT INR APTT Sodium Potassium Chloride Carbon Dioxide Anion Gap BUN Creatinine Estim Creat Clear Calc Est GFR (MDRD) Af Amer Est GFR (MDRD) Non-Af BUN/Creatinine Ratio Glucose Lactic Acid 1.7 Calcium Total Bilirubin AST ALT Alkaline Phosphatase Total Protein Albumin Globulin Albumin/Globulin Ratio Urine Color Yellow Urine Clarity Sl. Cloudy Urine pH 7.0 Ur Specific [place] 1.010 Urine Protein 15 H Urine Glucose (UA) Normal Urine Ketones 5 H Urine Occult Blood Negative Urine Nitrite Negative Urine Bilirubin Negative Urine Urobilinogen 1 H Ur Leukocyte Esterase Negative Urine RBC 0 SEEN Urine WBC 0 SEEN Ur Squamous Epith Cells 0-5 SEEN Urine Bacteria 0 SEEN Urine Mucus 0 SEEN - Rhythm Strip Rhythm Strip: Sinus Rhythm Rate: 80 Ectopy: None - EKG Initial EKG Interpretation: Sinus Rhythm, No Acute Injury Pattern, - - normal EKG - Medical Decision Making Patient was given IV fluids and labs, imaging obtained. No signs of any acute infection. She has a significant leukocytosis but this is explained likely by the Neulasta injection she received 2 days ago. The immature white blood cells. Cultures were obtained, lactate is within normal limits. Head CT shows cerebellar metastases that were previously known via MRI, and noted hydrocephalus. I discussed with the radiologist Dr. Flannery who compared it to the MRI, and notes that it is similar in appearance and does not appear to be acutely obstructing. Patient is hemodynamically stable. I discussed with Dr. Ulloa, her oncologist, who advises holding off on any antibiotics unless cultures return positive or she develops something new. She is extremely weak and still a little disoriented, and is unable to stand on her own or be discharged home. Her vital signs are stable and she is not hypertensive or bradycardic. She is clinically stable but still disoriented. Will admit to hospitalist. ED Disposition - Plan for ED Patient: Disposition: Acute Care Hospital [facility] Diagnosis: Delirium, Stage IV carcinoma of breast, Leukocytosis Referrals: Care Physician,No Primary [NON-STAFF] -
[2018-12-21] MEDS: 0.9% Normal Saline 1,000 ML 150 ML IV (10:35)
[2018-12-21 10:56] LABS: Hematocrit 39.6 % (37-47); Hemoglobin 12.7 g/dl (12.0-15.0); Mean Corp Hgb Conc 32.1 g/gl (32-36); Mean Corpuscular Hgb 31.4 pg (27.0-32.0); Mean Platelet Vol. 9.2 fl (6.2-12.0); Platelet Count 230 K/mm3 (150-450); RBC Distribution Width CV 14.7 % (11.6-14.6); RBC Distribution Width SD 52.1 fl (35.1-43.9); Red Blood Count 4.04 M/mm3 (4.2-5.4); White Blood Count 46.7 K/mm3 (4.4-11.0)
[2018-12-21 10:57] LABS: Differential Indicated MANUAL DIFF; POSITIVE COUNT YES; POSITIVE DIFFERENTIAL NO; POSITIVE MORPHOLOGY YES
--- NOTE | 2018-12-21 10:59 | ED.RN ---
DR LACKEY NOTIFIED WBC=46.7. NNO
[2018-12-21 11:09] LABS: Albumin, Serum 3.3 g/dL (3.2-5.0); BUN 9 mg/dL (7-18); BUN/Creat Ratio 15.1 RATIO (10-20); EST Glomerular Filtration Rate 113 mL/min (>60); Est Glom Filt Rate - Afr Amer 137 mL/min (>60); Estimated Creatinine Clearance 87.73 ml/min; Globulin 3.6 g/dL (2.2-4.2); Glucose 80 mg/dL (74-106); Protein, Total 6.9 g/dL (6.4-8.2)
[2018-12-21 11:10] LABS: ALB/GLOB Ratio 0.9 RATIO (0.9-2.4); AST(SGOT) 23 U/L (15-37); Alanine Aminotransfer ALT/SGPT 18 U/L (13-56); Alkaline Phosphatase 106 U/L (45-117); Anion Gap 8 (5-15); Calcium,Total 9.1 mg/dL (8.5-10.1); Chloride 103 mmol/L (98-107); Potassium 3.7 mmol/L (3.5-5.1); Sodium Level 139 mmol/L (136-145)
[2018-12-21] MEDS: Ondansetron 4 MG/2 ML Vial IV (11:11)
[2018-12-21] MEDS: Morphine 2 MG/ML Syringe 4 MG IV (11:12)
[2018-12-21 11:17] LABS: Prothrombin Time (Protime)PT. 12.8 SECONDS (11.7-14.9)
[2018-12-21 11:18] LABS: Partial Thromboplast Time 34.7 Seconds (24.1-36.2)
[2018-12-21 11:21] LABS: Basophil 1 % (0-1); Lymphocyte 2 % (19-41); Metamyelocyte 5 % (0-1); Monocyte 1 % (0-10); Myelocyte 1 (0-0); Neutrophil-Band 3 % (0-5); Neutrophil-Segmented 87 % (47-70); Total Cells Counted 100 (MANUAL DIFF)
[2018-12-21 11:22] LABS: Platelet Estimate ADEQUATE (ADEQ); Red Cell Morphology NORM C+C NORMAL (NORM C&C)
[2018-12-21 11:40] LABS: Bacteria 0 SEEN /hpf (None Seen); Mucous, Urine 0 SEEN /hpf (<or=2+); Red Blood Cells-Urine 0 SEEN /hpf (0-5); White Blood Cells 0 SEEN /hpf (0-5)
[2018-12-21 11:44] LABS: Color, Urine Yellow (Yellow); Glucose, Dipstick Normal (Normal); Ketone-Dipstick 5 mg/dl (Negative); Leukocyte Esterase-Dipstick Negative /ul (Negative); Nitrite-Dipstick Negative (Negative); Occult Blood-Urine Negative /ul (Negative); Protein-Dipstick 15 mg/dl (Negative); Urine Bilirubin Dipstick Negative (Negative); Urine Clarity Sl. Cloudy (Clear); Urine Urobilinogen 1 mg/dl (Normal)
[2018-12-21 11:47] LABS: Lactic Acid 1.7 mmol/L (0.4-2.0)
--- NOTE | 2018-12-21 11:48 | ED.RN ---
PT ON CHEMO FOR BREAST CA, RECEIVED NULASTA SHOT THIS WEEK.
[2018-12-21 11:53] LABS: Squamous Epithelial Cells - UA 0-5 SEEN /hpf (5-10)
--- NOTE | 2018-12-21 12:00 | ED.RN ---
D/C NEUTROPENIC PRECAUTIONS PER DR LACKEY
--- NOTE | 2018-12-21 13:58 | PCM.HP.STD ---
Problem List (1) Encephalopathy acute Status: Acute History of Present Illness Date of Admission: 12/21/18 Chief Complaint: confusion The patient is a 53 year old F who has been progressively confused over the past couple days. Patient is just been very listless and lethargic. Has been incontinent at times, which is new. Patient is also been having a shuffling gait going to the bathroom and is fallen over this past couple days. Patient was restarted on some new immunotherapy and Neulasta. Patient is confused and unable to provide any history whatsoever. History is obtained through the emergency room physician as well as the patient's at bedside. Patient does have bony metastasis and sees pain management and she is on pain medications. Despite the confusion, patient still has been receiving her pain medications and did receive some hydrocodone this morning around 915. [] Past Medical History Past Medical History (Chronic Problems): Chronic Problems (Last Reviewed 12/11/18 @ 10:12 by Sloane Schwartz) Anorexia (Chronic) Hypertension (Chronic) Encounter for monitoring cardiotoxic drug therapy (Chronic) Stage IV carcinoma of breast (Chronic) Anemia (Chronic) COPD (chronic obstructive pulmonary disease) (Chronic) Brain metastases (Chronic) Cerebral aneurysm (Chronic) Primary cancer of left female breast (Chronic) Regional lymph node metastasis present (Chronic) Bone metastases (Chronic) Medical History: Medical History (Last Reviewed 12/21/18 @ 14:00 by Iglesia Mueller DO) Primary cancer of left female breast (Chronic) C50.912 Regional lymph node metastasis present (Chronic) C77.9 Bone metastases (Chronic) C79.51 Pneumonia J18.9 port placement Allergies metoclopramide [From Reglan] Allergy (Severe, Verified 12/21/18 10:06) Shortness of breath MENTAL STATUS CHANGE prochlorperazine [From Compazine] Adverse Reaction (Intermediate, Verified 12/21/18 10:06) Other on edge Home Medications: Ambulatory Orders Medication Instructions Recorded Hydrocodone Bitart/Apap 5-325 1 tablet PO Q6H PRN PRN #10 tablet 10/18/17 [[place] 5/325] Lidocaine/Prilocaine 30 gm TP DAILY PRN PRN #1 cream..g. 10/19/17 [Lidocaine-Prilocaine Cream] Fentanyl [Subsys] 1 each SL Q6H 06/04/18 Buprenorphine [Butrans 20 Mcg/Hr] 1 patch TOPICAL TU 07/02/18 Omeprazole [Prilosec] 20 mg PO DAILY 30 Days #30 cap 08/15/18 Docusate Sodium [Colace] 100 mg PO PRN PRN 10/03/18 Acetaminophen [Tylenol] 325 mg PO PRN PRN 11/09/18 Aspirin/Acetaminophen/Caffeine 2 tab PO PRN PRN 11/09/18 [Excedrin Extra Strength Caplet] Capecitabine [Xeloda] 1,000 mg PO BID 11/09/18 Lapatinib Ditosylate [Tykerb] 1,000 mg PO DAILY 11/09/18 Ibuprofen [Motrin] 600 mg PO Q8H PRN PRN #30 tablet 11/13/18 Dexamethasone [Decadron] 4 mg PO DAILY@0800 #30 tablet 11/30/18 Morphine Sulfate [Morphabond ER] 15 mg PO BID 12/11/18 Loperamide [Imodium] 2 mg PO Q2H PRN PRN 30 Days #30 cap 12/18/18 Surgical History: Surgical History (Last Reviewed 12/21/18 @ 14:00 by Iglesia Mueller DO) History of section Z98.891 Hx of tonsillectomy Z98.890, Z90.89 Lives: Spouse/ Significant Other Smoking Status: Former smoker - *Family History Maternal Family History: Family History (Last Reviewed 12/21/18 @ 14:01 by Iglesia Mueller DO) Mother Heart disease Father Heart disease Aunt Breast cancer History Items: Cancer - Breast cancer in maternal aunt Review of Systems Comment: Unable to obtain an adequate review of systems as patient is confused and very lethargic. Please see the HPI for further details. VTE Information - Inpt Only VTE Present on Admission: No VTE Pharm Prophylaxis ordered?: Yes Patient Problems: Active and Suspected Problems (Last Reviewed 12/11/18 @ 10:12 by Sloane Schwartz) Diarrhea (Acute) Intractable headache (Acute) Delirium (Acute) Leukocytosis (Acute) Encephalopathy acute (Acute) CINV (chemotherapy-induced nausea and vomiting) (Acute) - Physical Exam General: No apparent distress, Confused, - - Opens her eyes briefly to voice and then closes. Is able to follow some commands but is globally just very weak. HEENT: Atraumatic, PERRLA, EOMI, Normocephalic, - - No scleral icterus Oral: Moist Mucosa, No Gingival or Mucosal Lesions/ Ulcerations Neck: No Nodes, Thyroid Normal Size and Texture, - - No meningismus Lungs: Clear to auscultation, No rhonchi, No wheeze, Diminished Cardiovascular: Regular rate, Regular Rhythm, Normal S1, Normal S2, No murmurs Abdomen: Bowel Sounds Present, Soft, Non Tender, Non-Distended, No Hepato-splenomegaly Extremities: No edema, No Calf Tenderness Skin: No rashes, No breakdown, - - Port in right chest Musculoskeletal: No Tenderness to Palpation of Joints or Extremities, No Muscle Wasting Neurological: Cranial nerves II-XII grossly intact, - - Muscle strength 4 out of 5 in upper extremities bilaterally. Limited due to patient's lethargy in regards to attempt. Vital Signs Temp Pulse Resp BP Pulse Ox 36.9 C 71 14 136/84 H 95 12/21/18 12:27 12/21/18 12:27 12/21/18 12:27 12/21/18 12:27 12/21/18 12:27 Oxygen Flow Rate (L/min) 1 Oxygen Delivery Method Nasal Cannula Weight: 68 kg Body Mass Index (BMI) 27.3 Microbiology Past 72 Hours 12/21/18 10:55 Influenza Types A,B Direct FA (ROBERTO) - Final Mucosa - Nose Laboratory Tests Past 24 Hrs 12/21/18 12/21/18 12/21/18 10:35 10:35 10:35 WBC 46.7 H* RBC 4.04 L Hgb 12.7 Hct 39.6 MCV 98.0 MCH 31.4 MCHC 32.1 RDW 14.7 H RDW Differential 52.1 H Plt Count 230 MPV 9.2 Neut % (Auto) Not Reportable Absolute Neuts (auto) Not Reportable Total Counted 100 Neutrophils % (Manual) 87 H Band Neutrophils % 3 Lymphocytes % (Manual) 2 L Monocytes % (Manual) 1 Basophils % (Manual) 1 Metamyelocytes % 5 H Myelocytes % 1 H Diff Path Review May foll Platelet Estimate ADEQUATE RBC Morphology NORM C+C PT 12.8 INR 1.0 APTT 34.7 Sodium 139 Potassium 3.7 Chloride 103 Carbon Dioxide 28.0 Anion Gap 8 BUN 9 Creatinine 0.60 Estim Creat Clear Calc 87.73 Est GFR (MDRD) Af Amer 137 Est GFR (MDRD) Non-Af 113 BUN/Creatinine Ratio 15.1 Glucose 80 Lactic Acid Calcium 9.1 Total Bilirubin 0.40 AST 23 ALT 18 Alkaline Phosphatase 106 Total Protein 6.9 Albumin 3.3 Globulin 3.6 Albumin/Globulin Ratio 0.9 Urine Color Urine Clarity Urine pH Ur Specific [place] Urine Protein Urine Glucose (UA) Urine Ketones Urine Occult Blood Urine Nitrite Urine Bilirubin Urine Urobilinogen Ur Leukocyte Esterase Urine RBC Urine WBC Ur Squamous Epith Cells Urine Bacteria Urine Mucus 12/21/18 12/21/18 10:35 11:30 WBC RBC Hgb Hct MCV MCH MCHC RDW RDW Differential Plt Count MPV Neut % (Auto) Absolute Neuts (auto) Total Counted Neutrophils % (Manual) Band Neutrophils % Lymphocytes % (Manual) Monocytes % (Manual) Basophils % (Manual) Metamyelocytes % Myelocytes % Diff Path Review Platelet Estimate RBC Morphology PT INR APTT Sodium Potassium Chloride Carbon Dioxide Anion Gap BUN Creatinine Estim Creat Clear Calc Est GFR (MDRD) Af Amer Est GFR (MDRD) Non-Af BUN/Creatinine Ratio Glucose Lactic Acid 1.7 Calcium Total Bilirubin AST ALT Alkaline Phosphatase Total Protein Albumin Globulin Albumin/Globulin Ratio Urine Color Yellow Urine Clarity Sl. Cloudy Urine pH 7.0 Ur Specific [place] 1.010 Urine Protein 15 H Urine Glucose (UA) Normal Urine Ketones 5 H Urine Occult Blood Negative Urine Nitrite Negative Urine Bilirubin Negative Urine Urobilinogen 1 H Ur Leukocyte Esterase Negative Urine RBC 0 SEEN Urine WBC 0 SEEN Ur Squamous Epith Cells 0-5 SEEN Urine Bacteria 0 SEEN Urine Mucus 0 SEEN Clinical Impression(s) from Imaging Studies Chest X-Ray 12/21/18 10:09 IMPRESSION: The lungs are clear. Findings suggest bony metastasis. Electronically Signed: Edgar Flannery, at 11:01 EDT , Service support , Brain CT 12/21/18 10:10 IMPRESSION: The patient is known to have metastatic deposits in the cerebellum more prominent on the right side. Hydrocephalus. CT scan following intravenous contrast menstruation is recommended for further evaluation for better delineation of the metastatic deposits. Electronically Signed: Edgar Flannery, at 12:45 EDT , Service support , Assessment/Plan All Active Problems (Last Reviewed 12/11/18 @ 10:12 by Sloane Schwartz) Diarrhea (Acute) Intractable headache (Acute) Delirium (Acute) Leukocytosis (Acute) Encephalopathy acute (Acute) CINV (chemotherapy-induced nausea and vomiting) (Acute) 1. Encephalopathy May be multifactorial: Due to her known brain metastasis, hydrocephalus and as well as narcotics. CAT scan showed hydrocephalus as well as cerebral mass, but ER physician spoke with radiology who stated that it looks similar to previous scan Patient did receive a one-time dose of done in the emergency room. Will check an MRI to see if patient has new lesions or possible vasogenic edema. Will hold capecitabine as it can cause toxic leukoencephalopathy Despite the confusion the patient's has continued to give her her narcotics. I discussed with him about narcotics and usage and function. At this time, patient is not functional so narcotics should not be given to her at this time unless she were hospice status, to which she is not. No evidence of any infection at this time. No pneumonia, no urinary tract infection. Clinically patient does not have any meningitis. 2. Leukocytosis: Most likely iatrogenic from Neulasta Monitor 3. Stage IV breast cancer HER-2 positive with brain metastasis and bony metastasis Patient has had focal radiation at [facility] in 2017 and then whole brain radiation and February 2018. Patient had evidence of extensive relapse in June 2018. Per oncology notes December 11, patient had evidence of disease progression in the [employer]. Oncology did recommend palliative care consult and in the documentation did mention eventually need to transition over to hospice for the patient to stay at home. Will consult palliative care at this time. Though not formally documented in the oncology notes, this appears to portend a very poor prognosis. I would speculate life expectancy of possibly 6 months or less. 4. Advanced care planning: Addressed full CODE STATUS versus DNR Comfort Care arrest and DNR CC with patient's . He states he wants everything done at this time. Therefore, patient is full CODE STATUS. I told him that since she is full CODE STATUS that I will be holding her narcotics. For her to get her narcotics back she will need to be fully awake. 5. DVT prophylaxis with Lovenox Code Visit Inpatient E&M: [id number] Init Hosp L3
--- NOTE | 2018-12-21 14:11 | HP.PCM_ITS ---
Problem List (1) Encephalopathy acute Status: Acute History of Present Illness Date of Admission: 12/21/18 Chief Complaint: confusion The patient is a 53 year old F who has been progressively confused over the past couple days. Patient is just been very listless and lethargic. Has been incontinent at times, which is new. Patient is also been having a shuffling gait going to the bathroom and is fallen over this past couple days. Patient was restarted on some new immunotherapy and Neulasta. Patient is confused and unable to provide any history whatsoever. History is obtained through the emergency room physician as well as the patient's at bedside. Patient does have bony metastasis and sees pain management and she is on pain medications. Despite the confusion, patient still has been receiving her pain medications and did receive some hydrocodone this morning around 915. [] Past Medical History Past Medical History (Chronic Problems): Chronic Problems (Last Reviewed 12/11/18 @ 10:12 by Sloane Schwartz) Anorexia (Chronic) Hypertension (Chronic) Encounter for monitoring cardiotoxic drug therapy (Chronic) Stage IV carcinoma of breast (Chronic) Anemia (Chronic) COPD (chronic obstructive pulmonary disease) (Chronic) Brain metastases (Chronic) Cerebral aneurysm (Chronic) Primary cancer of left female breast (Chronic) Regional lymph node metastasis present (Chronic) Bone metastases (Chronic) Medical History: Medical History (Last Reviewed 12/21/18 @ 14:00 by Iglesia Mueller DO) Primary cancer of left female breast (Chronic) C50.912 Regional lymph node metastasis present (Chronic) C77.9 Bone metastases (Chronic) C79.51 Pneumonia J18.9 port placement Allergies metoclopramide [From Reglan] Allergy (Severe, Verified 12/21/18 10:06) Shortness of breath MENTAL STATUS CHANGE prochlorperazine [From Compazine] Adverse Reaction (Intermediate, Verified 12/21/18 10:06) Other on edge Home Medications: Ambulatory Orders Medication Instructions Recorded Hydrocodone Bitart/Apap 5-325 1 tablet PO Q6H PRN PRN #10 tablet 10/18/17 [[place] 5/325] Lidocaine/Prilocaine 30 gm TP DAILY PRN PRN #1 cream..g. 10/19/17 [Lidocaine-Prilocaine Cream] Fentanyl [Subsys] 1 each SL Q6H 06/04/18 Buprenorphine [Butrans 20 Mcg/Hr] 1 patch TOPICAL TU 07/02/18 Omeprazole [Prilosec] 20 mg PO DAILY 30 Days #30 cap 08/15/18 Docusate Sodium [Colace] 100 mg PO PRN PRN 10/03/18 Acetaminophen [Tylenol] 325 mg PO PRN PRN 11/09/18 Aspirin/Acetaminophen/Caffeine 2 tab PO PRN PRN 11/09/18 [Excedrin Extra Strength Caplet] Capecitabine [Xeloda] 1,000 mg PO BID 11/09/18 Lapatinib Ditosylate [Tykerb] 1,000 mg PO DAILY 11/09/18 Ibuprofen [Motrin] 600 mg PO Q8H PRN PRN #30 tablet 11/13/18 Dexamethasone [Decadron] 4 mg PO DAILY@0800 #30 tablet 11/30/18 Morphine Sulfate [Morphabond ER] 15 mg PO BID 12/11/18 Loperamide [Imodium] 2 mg PO Q2H PRN PRN 30 Days #30 cap 12/18/18 Surgical History: Surgical History (Last Reviewed 12/21/18 @ 14:00 by Iglesia Mueller DO) History of section Z98.891 Hx of tonsillectomy Z98.890, Z90.89 Lives: Spouse/ Significant Other Smoking Status: Former smoker - *Family History Maternal Family History: Family History (Last Reviewed 12/21/18 @ 14:01 by Iglesia Mueller DO) Mother Heart disease Father Heart disease Aunt Breast cancer History Items: Cancer - Breast cancer in maternal aunt Review of Systems Comment: Unable to obtain an adequate review of systems as patient is confused and very lethargic. Please see the HPI for further details. VTE Information - Inpt Only VTE Present on Admission: No VTE Pharm Prophylaxis ordered?: Yes Patient Problems: Active and Suspected Problems (Last Reviewed 12/11/18 @ 10:12 by Sloane Schwartz) Diarrhea (Acute) Intractable headache (Acute) Delirium (Acute) Leukocytosis (Acute) Encephalopathy acute (Acute) CINV (chemotherapy-induced nausea and vomiting) (Acute) - Physical Exam General: No apparent distress, Confused, - - Opens her eyes briefly to voice and then closes. Is able to follow some commands but is globally just very weak. HEENT: Atraumatic, PERRLA, EOMI, Normocephalic, - - No scleral icterus Oral: Moist Mucosa, No Gingival or Mucosal Lesions/ Ulcerations Neck: No Nodes, Thyroid Normal Size and Texture, - - No meningismus Lungs: Clear to auscultation, No rhonchi, No wheeze, Diminished Cardiovascular: Regular rate, Regular Rhythm, Normal S1, Normal S2, No murmurs Abdomen: Bowel Sounds Present, Soft, Non Tender, Non-Distended, No Hepato- splenomegaly Extremities: No edema, No Calf Tenderness Skin: No rashes, No breakdown, - - Port in right chest Musculoskeletal: No Tenderness to Palpation of Joints or Extremities, No Muscle Wasting Neurological: Cranial nerves II-XII grossly intact, - - Muscle strength 4 out of 5 in upper extremities bilaterally. Limited due to patient's lethargy in regards to attempt. Vital Signs Temp Pulse Resp BP Pulse Ox 36.9 C 71 14 136/84 H 95 12/21/18 12:27 12/21/18 12:27 12/21/18 12:27 12/21/18 12:27 12/21/18 12:27 Oxygen Flow Rate (L/min) 1 Oxygen Delivery Method Nasal Cannula Weight: 68 kg Body Mass Index (BMI) 27.3 Microbiology Past 72 Hours 12/21/18 10:55 Influenza Types A,B Direct FA (ROBERTO) - Final Mucosa - Nose Laboratory Tests Past 24 Hrs 12/21/18 12/21/18 12/21/18 10:35 10:35 10:35 WBC 46.7 H* RBC 4.04 L Hgb 12.7 Hct 39.6 MCV 98.0 MCH 31.4 MCHC 32.1 RDW 14.7 H RDW Differential 52.1 H Plt Count 230 MPV 9.2 Neut % (Auto) Not Reportable Absolute Neuts (auto) Not Reportable Total Counted 100 Neutrophils % (Manual) 87 H Band Neutrophils % 3 Lymphocytes % (Manual) 2 L Monocytes % (Manual) 1 Basophils % (Manual) 1 Metamyelocytes % 5 H Myelocytes % 1 H Diff Path Review May foll Platelet Estimate ADEQUATE RBC Morphology NORM C+C PT 12.8 INR 1.0 APTT 34.7 Sodium 139 Potassium 3.7 Chloride 103 Carbon Dioxide 28.0 Anion Gap 8 BUN 9 Creatinine 0.60 Estim Creat Clear Calc 87.73 Est GFR (MDRD) Af Amer 137 Est GFR (MDRD) Non-Af 113 BUN/Creatinine Ratio 15.1 Glucose 80 Lactic Acid Calcium 9.1 Total Bilirubin 0.40 AST 23 ALT 18 Alkaline Phosphatase 106 Total Protein 6.9 Albumin 3.3 Globulin 3.6 Albumin/Globulin Ratio 0.9 Urine Color Urine Clarity Urine pH Ur Specific Kerrick Urine Protein Urine Glucose (UA) Urine Ketones Urine Occult Blood Urine Nitrite Urine Bilirubin Urine Urobilinogen Ur Leukocyte Esterase Urine RBC Urine WBC Ur Squamous Epith Cells Urine Bacteria Urine Mucus 12/21/18 12/21/18 10:35 11:30 WBC RBC Hgb Hct MCV MCH MCHC RDW RDW Differential Plt Count MPV Neut % (Auto) Absolute Neuts (auto) Total Counted Neutrophils % (Manual) Band Neutrophils % Lymphocytes % (Manual) Monocytes % (Manual) Basophils % (Manual) Metamyelocytes % Myelocytes % Diff Path Review Platelet Estimate RBC Morphology PT INR APTT Sodium Potassium Chloride Carbon Dioxide Anion Gap BUN Creatinine Estim Creat Clear Calc Est GFR (MDRD) Af Amer Est GFR (MDRD) Non-Af BUN/Creatinine Ratio Glucose Lactic Acid 1.7 Calcium Total Bilirubin AST ALT Alkaline Phosphatase Total Protein Albumin Globulin Albumin/Globulin Ratio Urine Color Yellow Urine Clarity Sl. Cloudy Urine pH 7.0 Ur Specific Kerrick 1.010 Urine Protein 15 H Urine Glucose (UA) Normal Urine Ketones 5 H Urine Occult Blood Negative Urine Nitrite Negative Urine Bilirubin Negative Urine Urobilinogen 1 H Ur Leukocyte Esterase Negative Urine RBC 0 SEEN Urine WBC 0 SEEN Ur Squamous Epith Cells 0-5 SEEN Urine Bacteria 0 SEEN Urine Mucus 0 SEEN Clinical Impression(s) from Imaging Studies Chest X-Ray 12/21/18 10:09 IMPRESSION: The lungs are clear. Findings suggest bony metastasis. Electronically Signed: Edgar Flannery, at 11:01 EDT , Service support , Brain CT 12/21/18 10:10 IMPRESSION: The patient is known to have metastatic deposits in the cerebellum more prominent on the right side. Hydrocephalus. CT scan following intravenous contrast menstruation is recommended for further evaluation for better delineation of the metastatic deposits. Electronically Signed: Edgar Flannery, at 12:45 EDT , Service support , Assessment/Plan All Active Problems (Last Reviewed 12/11/18 @ 10:12 by Sloane Schwartz) Diarrhea (Acute) Intractable headache (Acute) Delirium (Acute) Leukocytosis (Acute) Encephalopathy acute (Acute) CINV (chemotherapy-induced nausea and vomiting) (Acute) 1. Encephalopathy * May be multifactorial: Due to her known brain metastasis, hydrocephalus and as well as narcotics. * CAT scan showed hydrocephalus as well as cerebral mass, but ER physician spoke with radiology who stated that it looks similar to previous scan * Patient did receive a one-time dose of done in the emergency room. * Will check an MRI to see if patient has new lesions or possible vasogenic edema. * Will hold capecitabine as it can cause toxic leukoencephalopathy * Despite the confusion the patient's has continued to give her her narcotics. I discussed with him about narcotics and usage and function. At this time, patient is not functional so narcotics should not be given to her at this time unless she were hospice status, to which she is not. * No evidence of any infection at this time. No pneumonia, no urinary tract infection. Clinically patient does not have any meningitis. 2. Leukocytosis: * Most likely iatrogenic from Neulasta * Monitor 3. Stage IV breast cancer * HER-2 positive with brain metastasis and bony metastasis * Patient has had focal radiation at [facility] in 2017 and then whole brain radiation and February 2018. Patient had evidence of extensive relapse in June 2018. Per oncology notes December 11, patient had evidence of disease progression in the [employer]. * Oncology did recommend palliative care consult and in the documentation did mention eventually need to transition over to hospice for the patient to stay at home. Will consult palliative care at this time. * Though not formally documented in the oncology notes, this appears to portend a very poor prognosis. I would speculate life expectancy of possibly 6 months or less. 4. Advanced care planning: Addressed full CODE STATUS versus DNR Comfort Care arrest and DNR CC with patient's . He states he wants everything done at this time. Therefore, patient is full CODE STATUS. I told him that since she is full CODE STATUS that I will be holding her narcotics. For her to get her narcotics back she will need to be fully awake. 5. DVT prophylaxis with Lovenox Code Visit Inpatient E&M: 74585 Init Hosp L3
[2018-12-21] MEDS: proMETHazine 25 MG/ML Syringe 6.25 MG IV (14:24)
--- NOTE | 2018-12-21 14:48 | MRI_ITS ---
STUDY: MRI BRAIN WITH AND WITHOUT CONTRAST REASON FOR EXAM: Female, 53 years old. Delirium. History of breast carcinoma, brain metastases, left facial droop and lethargic. TECHNIQUE: Standardized multiplanar fat and water weighted pulse sequences were obtained. 15 IV Dotarem was administered for the contrast portion of the examination. COMPARISON: MRI of the brain with and without contrast 11/30/2018. FINDINGS: Increasing size and number of innumerable brain metastatic mass lesions in both cerebellar hemispheres, the brainstem and cerebral hemispheres. The dominant mass in the right cerebellum measures 1.3 x 1.1 cm, previously 1 x 0.8 cm. The metastatic mass in the right central pontine tegmentum measures 0.7 cm, previously 0.3 cm. The dominant mass in the right substantia nigra measures 0.7 cm, previously 0.4 cm. The dominant mass in the left hypothalamus measures 0.8 cm, previously 0.5 cm. The metastatic mass in the right uncus/amygdala measures 0.4 cm, previously 0.2 cm. There are too many mass lesions to measure. Mild dilatation of third and lateral ventricles. They are unchanged. Periventricular white matter T2 FLAIR hyperintensity foci are unchanged. Normal bilateral basal ganglia. Normal thalami. There is no extra-axial fluid accumulation. Normal flow voids within the major intracranial circulation suggesting patency by spin echo criteria. Normal venous enhancement. Normal sella turcica, pituitary gland, infundibular stalk, optic chiasm and right hypothalamus. Normal tectal plate and pineal gland. Abnormal brainstem due to metastatic mass lesions in the midbrain and jose. Innumerable enhancing metastatic mass lesions in both cerebellar hemispheres. Normal basal cisterns. Normal bilateral temporal bones. Normal bilateral internal auditory canals. No demonstrated orbital abnormality, within the constraints of a routine brain study. Normal visualized paranasal sinuses. Normal calvarium and skull base. Normal visualized soft tissue structures. Normal visualized upper cervical spine. MRI/Brain W/WO Contrast IMPRESSION: Increasing size and number of innumerable metastatic mass lesions in both cerebellar hemispheres, brainstem and cerebral hemispheres as described above in detail. Electronically Signed: Siddharth Chacon MD at 13:38 EDT , Service support ,
[2018-12-21] MEDS: NYSTATIN 500,000 UNIT/5 ML UDC 500000 UNIT PO ×2 (16:12→20:33)
[2018-12-21] MEDS: 0.9% Normal Saline 1,000 ML 100 ML IV (16:12)
[2018-12-21] MEDS: Ibuprofen 600 MG Tablet PO (20:31)
[2018-12-22] MEDS: Acetaminophen 325 MG Tablet 650 MG PO ×2 (01:39→08:14)
[2018-12-22 02:30] VITALS: BP 136/96; PULSE 82; RESP 16; TEMP 36.2; O2SAT 99
[2018-12-22] MEDS: Ibuprofen 600 MG Tablet PO (05:41)
[2018-12-22] MEDS: 0.9% NaCl VAD Flush 10 ML IV ×2 (06:09)
[2018-12-22 06:14] LABS: Hematocrit 38.7 % (37-47); Hemoglobin 12.4 g/dl (12.0-15.0); Mean Corpuscular Hgb 30.9 pg (27.0-32.0); Mean Corpuscular Volume 96.5 fL (81-99); Mean Platelet Vol. 9.4 fl (6.2-12.0); Platelet Count 178 K/mm3 (150-450); RBC Distribution Width CV 14.1 % (11.6-14.6); RBC Distribution Width SD 48.1 fl (35.1-43.9); Red Blood Count 4.01 M/mm3 (4.2-5.4)
[2018-12-22 06:16] LABS: Differential Indicated MANUAL DIFF; POSITIVE COUNT YES; POSITIVE DIFFERENTIAL YES; POSITIVE MORPHOLOGY YES; White Blood Count 66.3 K/mm3 (4.4-11.0)
[2018-12-22 06:20] LABS: Anion Gap 6 (5-15); BUN 11 mg/dL (7-18); BUN/Creat Ratio 17.4 RATIO (10-20); Calcium,Total 9.1 mg/dL (8.5-10.1); Chloride 109 mmol/L (98-107); Creatinine, Serum 0.63 mg/dL (0.55-1.02); EST Glomerular Filtration Rate 105 mL/min (>60); Est Glom Filt Rate - Afr Amer 127 mL/min (>60); Estimated Creatinine Clearance 83.56 ml/min; Glucose 116 mg/dL (74-106); Potassium 3.6 mmol/L (3.5-5.1); Sodium Level 141 mmol/L (136-145)
[2018-12-22 06:41] LABS: Lymphocyte 1 % (19-41); Metamyelocyte 1 % (0-1); Monocyte 4 % (0-10); Neutrophil-Band 8 % (0-5); Neutrophil-Segmented 86 % (47-70); Platelet Estimate ADEQUATE (ADEQ); Red Cell Morphology NORM C+C NORMAL (NORM C&C); Total Cells Counted 100 (MANUAL DIFF)
[2018-12-22 06:43] LABS: Absolute Lymphocyte Count 0.66 X10^3/ul (0.83-4.51); Absolute Neutrophil Count 62.3 X10^3/uL (2.0-7.7)
[2018-12-22 08:29] VITALS: BP 129/87; PULSE 72; RESP 16; TEMP 36.9; O2SAT 95
--- NOTE | 2018-12-22 08:32 | NURSING ---
Spoke with programmer numerical control RN for Palliative care, aware of consult and that pt admitted to [facility]. States the liaison will attempt to contact the today to discuss.
[2018-12-22 09:10] VITALS: PULSE 68
[2018-12-22] MEDS: NYSTATIN 500,000 UNIT/5 ML UDC 500000 UNIT PO ×4 (10:23→21:42)
[2018-12-22] MEDS: Enoxaparin 40 MG/0.4 ML Syringe SC (10:23)
[2018-12-22] MEDS: Pantoprazole Sodium 20 MG Tablet PO (10:23)
--- NOTE | 2018-12-22 12:49 | PN_ITS ---
Patient Problems: Active and Suspected Problems (Last Reviewed 12/21/18 @ 14:00 by Iglesia Mueller DO) Delirium (Acute) Leukocytosis (Acute) Encephalopathy acute (Acute) Subjective: The patient is a 53-year-old female with a past medical history of hypertension, chronic anemia, chronic pain syndrome, COPD, banks aneurysm of the cerebrum, stage IV invasive lobular breast cancer with metastases to the bone, regional lymph nodes and brain who presented to the ED at [facility] on 12/21/2018 with complaint of lethargy, confusion and difficulty walking. Recently started on a fourth line drug called Kadcyla. She received her first tx December 18 and had Neulasta the next day. On evening her stated that she was confused and very sleepy. She had a shuffling gait and actually had a fall. She was incontinent of urine and did not even know she had urinated. Monday morning the squad was called and she was brought to the ED. Lindsay has been managing her own medication up till now and she thinks she may have gotten her pain meds messed up. She sees Dr. Anderson for pain management and 2 months ago she was changed from a Butrans patch to Morphine ER 15 mg q 12H. She and her tell me that it really did not improve her pain. she has been c/o a severe PATRICIA recently. CT brain in the ED showed hydrocephalus. She has had whole brain radiation once and localized brain radiation prior to that. 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 She had an MRI yesterday however it has not been resulted yet. Today she is much more alert and she is able to answer my questions.......she is still confused about what happened yesterday. she is having a lot of pain but no diarrhea and no N/V/diaphoresis. Pain meds were held at admission. She has not had fever, chills, sweats. She denies dysuria, abdominal pain, diarrhea. Afebrile since admission. Vital signs are stable. She is not tachycardic. She is 95-99% saturated on room air. White blood cell count was increased to 46.7 at admission however the patient had Neulasta on 12/19/2018. Hemoglobin was 12.7 and platelets were within normal limits. BMP was unremarkable and LFTs were normal. Creatinine is 0.6 and is within her baseline. Chest x-ray showed no infiltrates. - Physical Exam General: Alert, Oriented x3, Cooperative, - - Looks to be in pain and she is restless. He is not diaphoretic. HEENT: Atraumatic Oral: No Gingival or Mucosal Lesions/ Ulcerations, Dry Mucosa Neck: Supple, No JVD, Negative Carotid Bruits, Trachea Midline, - - She has a mild increase in pain when I flex her head but she can touch her chin to her chest. Lungs: Clear to auscultation Cardiovascular: Regular rate, Regular Rhythm, Normal S1, Normal S2, No murmurs, No rub noted, No Gallop Abdomen: Bowel Sounds Present, Soft, Non Tender, Non-Distended Extremities: No clubbing, No cyanosis, No edema Skin: No rashes, No breakdown, - - She has many subcutaneous nodules on her extremity secondary to skin metastases Neurological: Cranial nerves II-XII grossly intact, Neuro grossly intact - She was not ambulated Psych/Mental Status: Normal Affect, Appropriate Vital Signs Temp Pulse Resp BP Pulse Ox 98.5 F 68 16 129/87 H 95 12/22/18 08:29 12/22/18 09:10 12/22/18 08:29 12/22/18 08:29 12/22/18 08:29 Oxygen Flow Rate (L/min) 2 Oxygen Delivery Method Room Air Weight: 156 lb Body Mass Index (BMI) 28.5 Intake and Output for Last 24 Hours 12/20/18 12/21/18 12/22/18 23:59 23:59 23:59 Intake Total 1611 / 1611 Output Total 100 / 100 Balance -100 / -100 1611 / 1611 Microbiology Past 72 Hours 12/21/18 10:55 Influenza Types A,B Direct FA (ROBERTO) - Final Mucosa - Nose Laboratory Tests Past 24 Hrs 12/22/18 12/22/18 06:00 06:00 WBC 66.3 H* RBC 4.01 L Hgb 12.4 Hct 38.7 MCV 96.5 MCH 30.9 MCHC 32.0 RDW 14.1 RDW Differential 48.1 H Plt Count 178 MPV 9.4 Neut % (Auto) Not Reportable Absolute Neuts (auto) 62.3 H Absolute Lymphs (auto) 0.66 L Total Counted 100 Neutrophils % (Manual) 86 H Band Neutrophils % 8 H Lymphocytes % (Manual) 1 L Monocytes % (Manual) 4 Metamyelocytes % 1 Diff Path Review May foll Platelet Estimate ADEQUATE RBC Morphology NORM C+C Sodium 141 Potassium 3.6 Chloride 109 H Carbon Dioxide 26.0 Anion Gap 6 BUN 11 Creatinine 0.63 Estim Creat Clear Calc 83.56 Est GFR (MDRD) Af Amer 127 Est GFR (MDRD) Non-Af 105 BUN/Creatinine Ratio 17.4 Glucose 116 H Calcium 9.1 Medical Necessity - Tobacco Use Smoking Status: Former smoker Assessment/Plan All Active Problems (Last Reviewed 12/21/18 @ 14:00 by Iglesia Mueller DO) Diarrhea (Acute) Intractable headache (Acute) Delirium (Acute) Leukocytosis (Acute) Encephalopathy acute (Acute) CINV (chemotherapy-induced nausea and vomiting) (Acute) Impressions 1. Acute encephalopathy-suspect secondary to accidental drug overdose 2. Innumerable brain metastases-increasing in number and size 3. Hydrocephalus on the CT scan of the brain. Awaiting the MRI report. 4. Stage IV breast cancer with metastases to the brain, bone and skin 5. Chronic pain syndrome 6. Hypertension 7. Chronic anemia 8. COPD 9. Banks aneurysm Restart MS Contin 15 mg p.o. twice daily, Vicodin 1 p.o. every 6 hours Fentanyl 25 mg IV every 4 hours as needed severe breakthrough pain - The pharmacy does not have the Subsys Radosphere has been called and will do a stat read on the MRI Brain done yesterday but not resulted. PATRICIA, confusion, gait abnormalities and incontinence could be due to accidental drug OD or to Hydrocephalus......it may be a combnation of both.....if she has significant hydrocephalus she will need to be considered for a RAD TECH shunt. Would need to discuss this with oncology. No indication for antibiotics at this time unless she has fever. Code Visit Inpatient E&M: [id number] Subs Hosp L3
[2018-12-22] MEDS: morphine SR 15 MG Tablet PO ×2 (13:05→21:41)
[2018-12-22] MEDS: HYDROcodone Bitartrate/Apap 5/325 Tablet PO ×3 (13:06→23:44)
--- NOTE | 2018-12-22 13:06 | CASEMGMT ---
Referral received for Palliative Care consult however per contact with RNZarina, she reports notifying Palliative regarding need for consult. RN CM notified. KAMRON Alarcon
[2018-12-22 13:57] VITALS: BP 139/85; PULSE 69; RESP 18; TEMP 36.7; O2SAT 95
--- NOTE | 2018-12-22 16:04 | CM.UR ---
ROQUE CM Assessment Met face to face with patient and her for initial transition planning/care coordination assessment. Introduced myself and my role. Verb understanding and agreement for assessment. Presentation: cpnfusion, listless PCP: juan Specialists: Dr. Ulloa Preferred Pharmacy: [facility] Insurance: [facility] my care; Chemo assistance. Prescription Benefit: yes LNOK: , Santhosh Home: Duplex, bottom half, 2 steps in, no access issues. ADLs: usually independent. Shares cooking, cleaning, laundry with . Transportation: DME: [employer], Grab bars and hand held shower.. Plans on purchasing shower chair. SNF/HHC: Denies. discussed HHC per PT/OT recommendation. Will consider but they don't think she needs it. If she does do it--they will need to have an agency that is flexible. They have a lot of appointments and when she if feeling well and no appts they like to try to get out. They are living life to the fullest. Passport/waiver circulation worker: Denies Advance Directives: States she has but they still need to bring in. States that Santhosh is her DPOA. DC PLAN: Home, possibly with HHC. Margo Gardner RN, CCM.
[2018-12-22 21:28] VITALS: BP 143/83; PULSE 63; RESP 14; TEMP 36.7; O2SAT 94
[2018-12-23 03:15] VITALS: BP 133/81; PULSE 57; RESP 14; TEMP 37; O2SAT 92
[2018-12-23] MEDS: HYDROcodone Bitartrate/Apap 5/325 Tablet PO ×4 (06:30→23:49)
[2018-12-23 08:01] VITALS: BP 135/76; PULSE 62; RESP 18; TEMP 36.5; O2SAT 95
[2018-12-23] MEDS: morphine SR 15 MG Tablet PO ×2 (11:11→21:34)
[2018-12-23] MEDS: Pantoprazole Sodium 20 MG Tablet PO (11:11)
[2018-12-23] MEDS: NYSTATIN 500,000 UNIT/5 ML UDC 500000 UNIT PO ×4 (11:12→21:34)
[2018-12-23] MEDS: Enoxaparin 40 MG/0.4 ML Syringe SC (11:12)
[2018-12-23 15:10] VITALS: BP 130/85; PULSE 76; RESP 18; TEMP 37.1; O2SAT 96
[2018-12-23] MEDS: 0.9% NaCl VAD Flush 10 ML IV (16:47)
--- NOTE | 2018-12-23 19:35 | PCM.PROGNOTE ---
Patient Problems: Active and Suspected Problems (Last Reviewed 12/21/18 @ 14:00 by Iglesia Mueller DO) Delirium (Acute) Leukocytosis (Acute) Encephalopathy acute (Acute) Subjective: The patient is a 53-year-old female with a past medical history of hypertension, chronic anemia, chronic pain syndrome, COPD, banks aneurysm of the cerebrum, stage IV invasive lobular breast cancer with metastases to the bone, regional lymph nodes, skin and brain who presented to the ED at [facility] on 12/21/2018 with complaint of lethargy, confusion and difficulty walking. Recently started on a fourth line drug called Kadcyla. She received her first tx December 18 and had Neulasta the next day. On evening her stated that she was confused and very sleepy. She had a shuffling gait and actually had a fall. She was incontinent of urine and did not even know she had urinated. Monday morning the squad was called and she was brought to the ED. All narcotics were held and the following day she was alert, oriented and appropriate. I suspect she accidentally took too much of her pain medication. She has been managing her own medications and the brain mets are now innumerable and enlarging. Dr. Pak spoke to them about palliative care but, they did not understand ....they thought he was giving up and they were not ready for hospice. All events of the past 24 hours of been reviewed. She was restarted on her outpatient pain medications/narcotics on 12/22/18 and she is alert and appropriate. The PATRICIA is much better and she rates her pain currently at 4. She is afebrile and the vital signs are stable. Pulse ox on room air is 95-96%. She was seen by PT today and displays weakness, limitation in her balance and decreased endurance to return safely home without support. Home PT with home health care is recommended. Pt tells me that she does not feel safe walking and she would like a at [place]. OT recommends a shower chair and they also recommend home health care for additional OT. Objective: - Physical Exam General: Alert, Oriented x3, Cooperative, She does not appear to be in any apparent distress today and she appears comfortable. She is looking forward to bathing HEENT: Atraumatic Oral: No Gingival or Mucosal Lesions/ Ulcerations, Dry Mucosa Neck: Supple, No JVD, Negative Carotid Bruits, Trachea Midline, No increased pain with flexion of her neck today. Denies PATRICIA. Lungs: Clear to auscultation Cardiovascular: Regular rate, Regular Rhythm, Normal S1, Normal S2, No murmurs, No rub noted, No Gallop Abdomen: Bowel Sounds Present, Soft, Non Tender, Non-Distended Extremities: No clubbing, No cyanosis, No edema Skin: No rashes, No breakdown, - - She has many subcutaneous nodules on her extremity secondary to skin metastases Neurological: Cranial nerves II-XII grossly intact, Neuro grossly intact - She was not ambulated Psych/Mental Status: Normal Affect, Appropriate - Physical Exam Vital Signs Temp Pulse Resp BP Pulse Ox 98.7 F 76 18 130/85 H 96 12/23/18 15:10 12/23/18 15:10 12/23/18 15:10 12/23/18 15:10 12/23/18 15:10 Oxygen Flow Rate (L/min) 2 Oxygen Delivery Method Room Air Weight: 155 lb 15.985 oz Body Mass Index (BMI) 28.5 Intake and Output for Last 24 Hours 12/21/18 12/22/18 12/23/18 23:59 23:59 23:59 Intake Total 1911 / 191 1050 / 1050 Output Total 100 / 100 300 / 300 Balance -100 / -100 1611 / 1611 1050 / 1050 Microbiology Past 72 Hours 12/21/18 11:30 Urine Culture - Final Urine, Catheterized Culture exhibits no growth. 12/21/18 10:35 Blood Culture - Preliminary Blood Culture (Wb) - Port No growth in 48 hours. 12/21/18 10:55 Influenza Types A,B Direct FA (ROBERTO) - Final Mucosa - Nose Medical Necessity - Tobacco Use Smoking Status: Former smoker Assessment/Plan All Active Problems (Last Reviewed 12/21/18 @ 14:00 by Iglesia Mueller DO) Diarrhea (Acute) Intractable headache (Acute) Delirium (Acute) Leukocytosis (Acute) Encephalopathy acute (Acute) CINV (chemotherapy-induced nausea and vomiting) (Acute) Impressions 1. Acute encephalopathy-suspect secondary to accidental drug overdose, resolved with holding narcotics overnight 2. Innumerable brain metastases-increasing in number and size 3. Hydrocephalus on the CT scan of the brain. CSF flow appeared normal on the MRI 4. Stage IV breast cancer with metastases to the brain, bone and skin. The brain mets are increasing in size and number despite chemo. Just started on a fourth line drug 5. Chronic pain syndrome - follows with Dr. Anderson 6. Hypertension 7. Chronic anemia 8. COPD 9. Banks aneurysm Continue current pain medication Discussed with Dr. Ulloa and he is in agreement with the increase in the Decadron to see if this helps with the PATRICIA's. Consult DC planning - needs a WC at [place] a shower chair. Will need [facility] for PT and OT BUT, the pt and her want to spend as much time with their grandchildren and family as possible and she does not want to be tied down........I suspect she will be better able to do this with a WC. I discussed Palliative care with Lindsay hampton Manuel and explained it is not hospice. She is not ready to give up and wants to live as long as possible and spend as much time with family as possible. I explained that Palliative helps with management of pain and someone is available 24 hours a day if her pain is uncontrolled. Manuel is going to take over managing the pain meds. They are agreeable to a palliative consult and will consult for them to see her in the hospital tomorrow. Probable DC home tomorrow if WC and shower chair can be arranged.....after she meets with palliative. Would DC on increased Decadron she has an appt with Dr. Chasidy Easton for a cervical epidural. Code Visit Inpatient E&M: 41243 Subs Hosp L2
--- NOTE | 2018-12-23 19:43 | PN_ITS ---
Patient Problems: Active and Suspected Problems (Last Reviewed 12/21/18 @ 14:00 by Iglesia Mueller DO) Delirium (Acute) Leukocytosis (Acute) Encephalopathy acute (Acute) Subjective: The patient is a 53-year-old female with a past medical history of hypertension, chronic anemia, chronic pain syndrome, COPD, banks aneurysm of the cerebrum, stage IV invasive lobular breast cancer with metastases to the bone, regional lymph nodes, skin and brain who presented to the ED at [facility] on 12/21/2018 with complaint of lethargy, confusion and difficulty walking. Recently started on a fourth line drug called Kadcyla. She received her first tx December 18 and had Neulasta the next day. On evening her stated that she was conf used and very sleepy. She had a shuffling gait and actually had a fall. She was incontinent of urine and did not even know she had urinated. Monday morning the squad was called and she was brought to the ED. All narcotics were held and the following day she was alert, oriented and appropriate. I suspect she accidentally took too much of her pain medication. She has been managing her own medications and the brain mets are now innumerable and enlarging. Dr. Pak spoke to them about palliative care but, they did not understand ....they thought he was giving up and they were not ready for hospice. All events of the past 24 hours of been reviewed. She was restarted on her outpatient pain medications/narcotics on 12/22/18 and she is alert and appropriate. The PATRICIA is much better and she rates her pain currently at 4. She is afebrile and the vital signs are stable. Pulse ox on room air is 95-96%. She was seen by PT today and displays weakness, limitation in her balance and decreased endurance to return safely home without support. Home PT with home health care is recommended. Pt tells me that she does not feel safe walking and she would like a at [place]. OT recommends a shower chair and they also recommend home health care for additional OT. Objective: - Physical Exam General: Alert, Oriented x3, Cooperative, She does not appear to be in any apparent distress today and she appears comfortable. She is looking forward to bathing HEENT: Atraumatic Oral: No Gingival or Mucosal Lesions/ Ulcerations, Dry Mucosa Neck: Supple, No JVD, Negative Carotid Bruits, Trachea Midline, No increased pain with flexion of her neck today. Denies PATRICIA. Lungs: Clear to auscultation Cardiovascular: Regular rate, Regular Rhythm, Normal S1, Normal S2, No murmurs, No rub noted, No Gallop Abdomen: Bowel Sounds Present, Soft, Non Tender, Non-Distended Extremities: No clubbing, No cyanosis, No edema Skin: No rashes, No breakdown, - - She has many subcutaneous nodules on her extremity secondary to skin metastases Neurological: Cranial nerves II-XII grossly intact, Neuro grossly intact - She was not ambulated Psych/Mental Status: Normal Affect, Appropriate - Physical Exam Vital Signs Temp Pulse Resp BP Pulse Ox 98.7 F 76 18 130/85 H 96 12/23/18 15:10 12/23/18 15:10 12/23/18 15:10 12/23/18 15:10 12/23/18 15:10 Oxygen Flow Rate (L/min) 2 Oxygen Delivery Method Room Air Weight: 155 lb 15.985 oz Body Mass Index (BMI) 28.5 Intake and Output for Last 24 Hours 12/21/18 12/22/18 12/23/18 23:59 23:59 23:59 Intake Total 1911 / 191 1050 / 1050 Output Total 100 / 100 300 / 300 Balance -100 / -100 1611 / 1611 1050 / 1050 Microbiology Past 72 Hours 12/21/18 11:30 Urine Culture - Final Urine, Catheterized Culture exhibits no growth. 12/21/18 10:35 Blood Culture - Preliminary Blood Culture (Wb) - Port No growth in 48 hours. 12/21/18 10:55 Influenza Types A,B Direct FA (ROBERTO) - Final Mucosa - Nose Medical Necessity - Tobacco Use Smoking Status: Former smoker Assessment/Plan All Active Problems (Last Reviewed 12/21/18 @ 14:00 by Iglesia Mueller DO) Diarrhea (Acute) Intractable headache (Acute) Delirium (Acute) Leukocytosis (Acute) Encephalopathy acute (Acute) CINV (chemotherapy-induced nausea and vomiting) (Acute) Impressions 1. Acute encephalopathy-suspect secondary to accidental drug overdose, resolved with holding narcotics overnight 2. Innumerable brain metastases-increasing in number and size 3. Hydrocephalus on the CT scan of the brain. CSF flow appeared normal on the MRI 4. Stage IV breast cancer with metastases to the brain, bone and skin. The brain mets are increasing in size and number despite chemo. Just started on a fourth line drug 5. Chronic pain syndrome - follows with Dr. Anderson 6. Hypertension 7. Chronic anemia 8. COPD 9. Banks aneurysm Continue current pain medication Discussed with Dr. Ulloa and he is in agreement with the increase in the Decadron to see if this helps with the PATRICIA's. Consult DC planning - needs a WC at [place] a shower chair. Will need [facility] for PT and OT BUT, the pt and her want to spend as much time with their grandchildren and family as possible and she does not want to be tied down........I suspect she will be better able to do this with a WC. I discussed Palliative care with Lindsay hampton Manuel and explained it is not hospice. She is not ready to give up and wants to live as long as possible and spend as much time with family as possible. I explained that Palliative helps with management of pain and someone is available 24 hours a day if her pain is uncontrolled. Manuel is going to take over managing the pain meds. They are agreeable to a palliative consult and will consult for them to see her in the hospital tomorrow. Probable DC home tomorrow if WC and shower chair can be arranged.....after she meets with palliative. Would DC on increased Decadron she has an appt with Dr. Chasidy Easton for a cervical epidural. Code Visit Inpatient E&M: 87271 Subs Hosp L2
[2018-12-23 21:21] VITALS: BP 137/79; PULSE 67; RESP 18; TEMP 36.4; O2SAT 96
[2018-12-23 23:54] VITALS: BP 149/90; PULSE 55; RESP 16; TEMP 36.4; O2SAT 96
[2018-12-24] MEDS: HYDROcodone Bitartrate/Apap 5/325 Tablet PO ×3 (06:42→18:22)
[2018-12-24 06:44] VITALS: BP 132/83; PULSE 68; RESP 16; TEMP 36.6; O2SAT 95
[2018-12-24 10:23] VITALS: BP 133/87; PULSE 67; RESP 18; TEMP 36.5; O2SAT 98
[2018-12-24] MEDS: Enoxaparin 40 MG/0.4 ML Syringe SC (10:25)
[2018-12-24] MEDS: Pantoprazole Sodium 20 MG Tablet PO (10:25)
[2018-12-24] MEDS: morphine SR 15 MG Tablet PO ×2 (10:25→21:35)
[2018-12-24] MEDS: NYSTATIN 500,000 UNIT/5 ML UDC 500000 UNIT PO ×4 (10:26→23:16)
--- NOTE | 2018-12-24 13:00 | NURSING ---
walking past room- pt standing at sink, brushing her teeth- bedside table behind pt. reminded pt that she needed to call for any assistance including getting out of chair. pt states oh, i know, i just figured it could do this. reinforcement provided to pt about safety and fall risk risks and ramificcations, pt verbalizes understanding and states i know, i don't want to fall. Fly [employer] to assist pt further.
[2018-12-24 13:28] LABS: Pathologist Review Reviewed
[2018-12-24 13:30] LABS: Pathologist Review Reviewed
[2018-12-24 14:46] VITALS: BP 136/80; PULSE 64; RESP 18; TEMP 37.4; O2SAT 94
--- NOTE | 2018-12-24 15:33 | PCM.PN.HOSP ---
Patient Problems: Active and Suspected Problems (Last Reviewed 12/21/18 @ 14:00 by Iglesia Mueller DO) Delirium (Acute) Leukocytosis (Acute) Encephalopathy acute (Acute) Subjective: Patient seen and examined. She felt well and had no complaints. Review of systems otherwise negative. Labs and vitals reviewed. Awaiting palliative care review. Patient is due to have a nerve block by Dr. Stanley tomorrow. At patient's and family's request, but especially was consulted to see if procedure could be done while she was inpatient. Especially stated that in light of her recent admission, he would want to give her a week and would prefer to do the procedure in a few weeks from now. He therefore canceled procedure for tomorrow and stated the patient to call his office and reschedule. Vitals/I&O's: Vital Signs Temp Pulse Resp BP Pulse Ox 99.3 F H 64 18 136/80 H 94 12/24/18 14:46 12/24/18 14:46 12/24/18 14:46 12/24/18 14:46 12/24/18 14:46 Oxygen Flow Rate (L/min) 2 Oxygen Delivery Method Room Air Weight: 155 lb 15.985 oz Body Mass Index (BMI) 28.5 Intake and Output for Last 24 Hours 12/22/18 12/23/18 12/24/18 23:59 23:59 23:59 Intake Total 1911 / 1911 1050 / 1050 840 / 840 Output Total 300 / 300 800 / 800 Balance 1611 / 1611 1050 / 1050 40 / 40 General: Alert, Oriented x3, Cooperative, No apparent distress HEENT: Atraumatic, PERRLA, EOMI, Normocephalic Oral: Moist Mucosa Neck: Supple, No JVD, Negative Carotid Bruits Lungs: Clear to auscultation, Normal air movement, No rhonchi, No wheeze, No rales Cardiovascular: Regular rate, Regular Rhythm, Normal S1, Normal S2, No murmurs Abdomen: Bowel Sounds Present, Soft, Non Tender, Non-Distended, No Hepato-splenomegaly Extremities: No clubbing, No cyanosis, No edema, Capillary Refill Less than 3 Seconds Skin: No rashes, No breakdown Musculoskeletal: No Tenderness to Palpation of Joints or Extremities Lymphatic: No Cervical, Supraclavicular, or Inguinal Adenopathy Neurological: Cranial nerves II-XII grossly intact, Neuro grossly intact, Motor Exam 5/5 strength throughout Psych/Mental Status: Normal Affect, Appropriate, Alert and oriented to time, place, person, mood and affect Microbiology Past 72 Hours 12/21/18 11:30 Urine, Catheterized Urine Culture - Final Culture exhibits no growth. 12/21/18 10:35 Blood Culture (Wb) - Port Blood Culture - Preliminary No growth in 48 hours. Laboratory Results 12/21/18 10:35: Diff Path Review Reviewed 12/22/18 06:00: Diff Path Review Reviewed Current Medications Hydrocodone Bitart/Acetaminophen ([place] 5mg-325mg) 1 tablet PO Q6H [facility] Last Admin: 12/24/18 11:55 Dose: 1 tablet Dexamethasone (Decadron) 4 mg PO Q6H [facility] Last Admin: 12/24/18 11:55 Dose: 4 mg Docusate Sodium (Colace) 100 mg PO PRN PRN PRN Reason: Constipation Enoxaparin Sodium (Lovenox) 40 mg SC DAILY@1000 [facility] Last Admin: 12/24/18 10:25 Dose: 40 mg Fentanyl (Subsys) 1 each SL Q4H PRN PRN PRN Reason: PAIN Last Admin: 12/23/18 21:34 Dose: 1 each Heparin Sodium (Beef Lung) () 50 units IV UD PRN PRN Reason: HEPARIN FLUSH Last Admin: 12/23/18 16:47 Dose: 50 units Ibuprofen (Motrin) 600 mg PO Q8H PRN PRN PRN Reason: Headache, pain Last Admin: 12/22/18 05:41 Dose: 600 mg Lidocaine/Prilocaine (Emla Cream W/Tegaderm) 30 gm TOPICAL DAILY PRN PRN; Protocol PRN Reason: 30 MIN PRIOR TO PORT ACCESS Loperamide HCl (Imodium) 2 mg PO Q2H PRN PRN PRN Reason: DIARRHEA Magnesium Hydroxide (Milk Of Magnesia) 30 ml PO DAILY PRN PRN PRN Reason: Constipation Morphine Sulfate (Ms Contin) 15 mg PO BID [facility] Last Admin: 12/24/18 10:25 Dose: 15 mg Nystatin (Nystatin) 500,000 unit PO 4X/DAY [facility] Last Admin: 12/24/18 14:42 Dose: 500,000 unit Ondansetron HCl (Zofran) 4 mg IV Q8H PRN PRN PRN Reason: NAUSEA Pantoprazole Sodium (Protonix) 20 mg PO DAILY DORIS Last Admin: 12/24/18 10:25 Dose: 20 mg Sodium Chloride () 10 ml IV UD PRN PRN Reason: VAD FLUSH Last Admin: 12/23/18 16:47 Dose: 10 ml Medical Necessity - Tobacco Use Smoking Status: Former smoker Assessment/Plan All Active Problems (Last Reviewed 12/21/18 @ 14:00 by Iglesia Mueller DO) Diarrhea (Acute) Intractable headache (Acute) Delirium (Acute) Leukocytosis (Acute) Encephalopathy acute (Acute) CINV (chemotherapy-induced nausea and vomiting) (Acute) 1.etabolic encephalopathy likely due to accidental drug overdose. Resolved. Narcotics held. Will monitor. 2. Metastatic breast cancer with mets to brain, bone and skin oncology on board; recently started on a 4th line medicaiton- Kadycyla. will monitor awaiting palliative care evaluation 3. Hydrocephalus likely due to brain metastasis: MRI of the brain done showed normal CSF flow. on PO decadron 4. Chronic pain syndrome: To have a cervical epidural with Dr. Anderson tomorrow. Discussed with Dr. Anderson possibly due to procedure in patient. He prefers to hold off with procedure due to her current admission and states he will reschedule for procedure in a few weeks time. Patient's to call Dr Anderson's office to reschedule. 5. Hypertension: Controlled. Will monitor. 6. COPD: Breathing treatments. 7. History of banks aneurysm: Stable. DVT prophylaxis:lovenox Disposition: Likely discharge tomorrow. Will need a wheelchair. Awaiting palliative care evaluation. Of note, patient refuses hospice as she wants to spend as much time with a family as possible. Code Visit Inpatient E&M: 18033 Subs Hosp L2
--- NOTE | 2018-12-24 15:40 | PN_ITS ---
Patient Problems: Active and Suspected Problems (Last Reviewed 12/21/18 @ 14:00 by Iglesia Mueller DO) Delirium (Acute) Leukocytosis (Acute) Encephalopathy acute (Acute) Subjective: Patient seen and examined. She felt well and had no complaints. Review of systems otherwise negative. Labs and vitals reviewed. Awaiting palliative care review. Patient is due to have a nerve block by Dr. Stanley tomorrow. At patient's and family's request, but especially was consulted to see if procedure could be done while she was inpatient. Especially stated that in light of her recent admission, he would want to give her a week and would prefer to do the procedure in a few weeks from now. He therefore canceled procedure for tomorrow and stated the patient to call his office and reschedule. Vitals/I&O's: Vital Signs Temp Pulse Resp BP Pulse Ox 99.3 F H 64 18 136/80 H 94 12/24/18 14:46 12/24/18 14:46 12/24/18 14:46 12/24/18 14:46 12/24/18 14:46 Oxygen Flow Rate (L/min) 2 Oxygen Delivery Method Room Air Weight: 155 lb 15.985 oz Body Mass Index (BMI) 28.5 Intake and Output for Last 24 Hours 12/22/18 12/23/18 12/24/18 23:59 23:59 23:59 Intake Total 1911 / 1911 1050 / 1050 840 / 840 Output Total 300 / 300 800 / 800 Balance 1611 / 1611 1050 / 1050 40 / 40 General: Alert, Oriented x3, Cooperative, No apparent distress HEENT: Atraumatic, PERRLA, EOMI, Normocephalic Oral: Moist Mucosa Neck: Supple, No JVD, Negative Carotid Bruits Lungs: Clear to auscultation, Normal air movement, No rhonchi, No wheeze, No rales Cardiovascular: Regular rate, Regular Rhythm, Normal S1, Normal S2, No murmurs Abdomen: Bowel Sounds Present, Soft, Non Tender, Non-Distended, No Hepato-sple nomegaly Extremities: No clubbing, No cyanosis, No edema, Capillary Refill Less than 3 Seconds Skin: No rashes, No breakdown Musculoskeletal: No Tenderness to Palpation of Joints or Extremities Lymphatic: No Cervical, Supraclavicular, or Inguinal Adenopathy Neurological: Cranial nerves II-XII grossly intact, Neuro grossly intact, Motor Exam 5/5 strength throughout Psych/Mental Status: Normal Affect, Appropriate, Alert and oriented to time, place, person, mood and affect Microbiology Past 72 Hours 12/21/18 11:30 Urine, Catheterized Urine Culture - Final Culture exhibits no growth. 12/21/18 10:35 Blood Culture (Wb) - Port Blood Culture - Preliminary No growth in 48 hours. Laboratory Results 12/21/18 10:35: Diff Path Review Reviewed 12/22/18 06:00: Diff Path Review Reviewed Current Medications Hydrocodone Bitart/Acetaminophen ([place] 5mg-325mg) 1 tablet PO Q6H [facility] Last Admin: 12/24/18 11:55 Dose: 1 tablet Dexamethasone (Decadron) 4 mg PO Q6H [facility] Last Admin: 12/24/18 11:55 Dose: 4 mg Docusate Sodium (Colace) 100 mg PO PRN PRN PRN Reason: Constipation Enoxaparin Sodium (Lovenox) 40 mg SC DAILY@1000 [facility] Last Admin: 12/24/18 10:25 Dose: 40 mg Fentanyl (Subsys) 1 each SL Q4H PRN PRN PRN Reason: PAIN Last Admin: 12/23/18 21:34 Dose: 1 each Heparin Sodium (Beef Lung) () 50 units IV UD PRN PRN Reason: HEPARIN FLUSH Last Admin: 12/23/18 16:47 Dose: 50 units Ibuprofen (Motrin) 600 mg PO Q8H PRN PRN PRN Reason: Headache, pain Last Admin: 12/22/18 05:41 Dose: 600 mg Lidocaine/Prilocaine (Emla Cream W/Tegaderm) 30 gm TOPICAL DAILY PRN PRN; Protocol PRN Reason: 30 MIN PRIOR TO PORT ACCESS Loperamide HCl (Imodium) 2 mg PO Q2H PRN PRN PRN Reason: DIARRHEA Magnesium Hydroxide (Milk Of Magnesia) 30 ml PO DAILY PRN PRN PRN Reason: Constipation Morphine Sulfate (Ms Contin) 15 mg PO BID [facility] Last Admin: 12/24/18 10:25 Dose: 15 mg Nystatin (Nystatin) 500,000 unit PO 4X/DAY [facility] Last Admin: 12/24/18 14:42 Dose: 500,000 unit Ondansetron HCl (Zofran) 4 mg IV Q8H PRN PRN PRN Reason: NAUSEA Pantoprazole Sodium (Protonix) 20 mg PO DAILY DORIS Last Admin: 12/24/18 10:25 Dose: 20 mg Sodium Chloride () 10 ml IV UD PRN PRN Reason: VAD FLUSH Last Admin: 12/23/18 16:47 Dose: 10 ml Medical Necessity - Tobacco Use Smoking Status: Former smoker Assessment/Plan All Active Problems (Last Reviewed 12/21/18 @ 14:00 by Iglesia Mueller DO) Diarrhea (Acute) Intractable headache (Acute) Delirium (Acute) Leukocytosis (Acute) Encephalopathy acute (Acute) CINV (chemotherapy-induced nausea and vomiting) (Acute) 1.etabolic encephalopathy likely due to accidental drug overdose. * Resolved. Narcotics held. Will monitor. * 2. Metastatic breast cancer with mets to brain, bone and skin * oncology on board; recently started on a 4th line medicaiton- Kadycyla. * will monitor * awaiting palliative care evaluation * 3. Hydrocephalus likely due to brain metastasis: * MRI of the brain done showed normal CSF flow. * on PO decadron * 4. Chronic pain syndrome: * To have a cervical epidural with Dr. Anderson tomorrow. * Discussed with Dr. Anderson possibly due to procedure in patient. * He prefers to hold off with procedure due to her current admission and states he will reschedule for procedure in a few weeks time. * Patient's to call Dr Anderson's office to reschedule. * 5. Hypertension: Controlled. Will monitor. 6. COPD: Breathing treatments. 7. History of banks aneurysm: Stable. DVT prophylaxis:lovenox Disposition: * Likely discharge tomorrow. * Will need a wheelchair. * Awaiting palliative care evaluation. * Of note, patient refuses hospice as she wants to spend as much time with a family as possible. Code Visit Inpatient E&M: 87393 Subs Hosp L2
[2018-12-24 23:51] VITALS: BP 143/82; PULSE 62; RESP 16; TEMP 36.8; O2SAT 95
[2018-12-25] MEDS: HYDROcodone Bitartrate/Apap 5/325 Tablet PO ×3 (00:48→13:12)
[2018-12-25 03:25] VITALS: BP 141/92; PULSE 65; RESP 16; TEMP 36.9; O2SAT 95
[2018-12-25 05:55] LABS: Anion Gap 7 (5-15); BUN 15 mg/dL (7-18); Calcium,Total 8.8 mg/dL (8.5-10.1); Chloride 106 mmol/L (98-107); Creatinine, Serum 0.62 mg/dL (0.55-1.02); EST Glomerular Filtration Rate 107 mL/min (>60); Est Glom Filt Rate - Afr Amer 129 mL/min (>60); Glucose 122 mg/dL (74-106); Sodium Level 142 mmol/L (136-145)
[2018-12-25 06:25] LABS: Hematocrit 37.7 % (37-47); Hemoglobin 12.1 g/dl (12.0-15.0); Mean Corp Hgb Conc 32.1 g/gl (32-36); Mean Corpuscular Volume 96.7 fL (81-99); Mean Platelet Vol. 9.8 fl (6.2-12.0); Platelet Count 129 K/mm3 (150-450); RBC Distribution Width CV 14.4 % (11.6-14.6); RBC Distribution Width SD 50.6 fl (35.1-43.9)
[2018-12-25 06:26] LABS: Differential Indicated MANUAL DIFF; POSITIVE COUNT YES; POSITIVE DIFFERENTIAL NO; POSITIVE MORPHOLOGY YES
[2018-12-25 06:29] LABS: White Blood Count 54.2 K/mm3 (4.4-11.0)
[2018-12-25 07:17] LABS: Lymphocyte 1 % (19-41); Metamyelocyte 1 % (0-1); Monocyte 5 % (0-10); Myelocyte 1 (0-0); Neutrophil-Band 28 % (0-5); Neutrophil-Segmented 64 % (47-70); Total Cells Counted 100 (MANUAL DIFF)
[2018-12-25 07:19] LABS: Platelet Estimate SLT DEC (ADEQ); Toxic Granulation 1+
[2018-12-25 07:21] LABS: Red Cell Morphology NORM C+C NORMAL (NORM C&C)
--- NOTE | 2018-12-25 09:37 | CASEMGMT ---
Addendum entered by Raven Nichole 12/25/18 13:45: LILLY faxed discharge paperwork to [facility]. Original Note: Social Work Note SW placed a call to [facility] and spoke with ROQUE Gallardo. Paulina confirms that pt signed with [facility]. Paulina states that Palliative Care doesn't set up Medical Equipment. RN SUNSHINE updated as pt was requesting wheelchair yesterday. Raven Nichole [employer] ADVISOR LEAD, PHARMACY CLERK
[2018-12-25 09:58] VITALS: BP 152/92; PULSE 52; RESP 18; TEMP 37; O2SAT 97
[2018-12-25] MEDS: morphine SR 15 MG Tablet PO (10:02)
[2018-12-25] MEDS: NYSTATIN 500,000 UNIT/5 ML UDC 500000 UNIT PO ×2 (10:04→13:14)
[2018-12-25] MEDS: Pantoprazole Sodium 20 MG Tablet PO (10:05)
[2018-12-25] MEDS: Enoxaparin 40 MG/0.4 ML Syringe SC (10:05)
--- NOTE | 2018-12-25 10:26 | PCM.DC ---
- Discharge Diagnoses Current Active Problems: Current Active and Chronic Problems (Last Reviewed 12/21/18 @ 14:00 by Iglesia Mueller DO) Delirium (Acute) Leukocytosis (Acute) Encephalopathy acute (Acute) Stage IV carcinoma of breast (Chronic) You will use the following diet at home:: No restrictions Your food should be the consistency of: Regular Your liquids should be the consistency of: Regular/Thin Discharge Activity: Return to Normal Activity Weight Bearing Status: Weight bearing as tolerated Call your doctor if you observe: Fever of 101 or Higher, Shortness of breath Additional Instructions: don't take pain meds if you are confused or drowsy Allergies/Adverse Reactions: Allergies metoclopramide [From Reglan] Allergy (Severe, Verified 12/21/18 10:06) Shortness of breath MENTAL STATUS CHANGE prochlorperazine [From Compazine] Adverse Reaction (Intermediate, Verified 12/21/18 10:06) Other on edge Medications to take at Discharge Hydrocodone Bitart/Apap 5-325 [Byram 5/325] 1 tablet PO Q6H PRN PRN #10 tablet 10/18/17 Lidocaine/Prilocaine [Lidocaine-Prilocaine Cream] 30 gm TP DAILY PRN PRN #1 cream..g. 10/19/17 Fentanyl [Subsys] 100 mcg SL Q4H PRN PRN 06/04/18 Docusate Sodium [Colace] 100 mg PO PRN PRN 10/03/18 Acetaminophen [Tylenol] 325 mg PO PRN PRN 11/09/18 Aspirin/Acetaminophen/Caffeine [Excedrin Extra Strength Caplet] 2 tab PO PRN PRN 11/09/18 Ibuprofen [Motrin] 600 mg PO Q8H PRN PRN #30 tablet 11/13/18 Morphine Sulfate [Morphabond ER] 15 mg PO BID 12/11/18 Loperamide [Imodium] 2 mg PO Q2H PRN PRN 30 Days #30 cap 12/18/18 Omeprazole [Prilosec] 20 mg PO DAILY 12/21/18 Dexamethasone [Decadron] 4 mg PO Q6H #120 tablet 12/25/18 The following prescriptions were given: Dexamethasone [Decadron] 4 mg PO Q6H #120 tablet Primary Care Physician: Care Physician,No Primary [NON-STAFF] - Please follow up with your Primary Care Physician in: one week Test Results: Test results from this visit will be discussed in further detail at your follow-up appointment, if applicable. Please Follow Up With: Carolina Pak MD When: one week Please Follow Up With: Lauro Anderson MD When: 2 weeks; please call his office for an appointment When: follow up with palliative care as preferred Proposed Discharge Date: 12/25/18
--- NOTE | 2018-12-25 10:30 | DCINST_ITS ---
- Discharge Diagnoses Current Active Problems: Current Active and Chronic Problems (Last Reviewed 12/21/18 @ 14:00 by Iglesia Mueller DO) Delirium (Acute) Leukocytosis (Acute) Encephalopathy acute (Acute) Stage IV carcinoma of breast (Chronic) You will use the following diet at home:: No restrictions Your food should be the consistency of: Regular Your liquids should be the consistency of: Regular/Thin Discharge Activity: Return to Normal Activity Weight Bearing Status: Weight bearing as tolerated Call your doctor if you observe: Fever of 101 or Higher, Shortness of breath Additional Instructions: don't take pain meds if you are confused or drowsy Allergies/Adverse Reactions: Allergies metoclopramide [From Reglan] Allergy (Severe, Verified 12/21/18 10:06) Shortness of breath MENTAL STATUS CHANGE prochlorperazine [From Compazine] Adverse Reaction (Intermediate, Verified 12/21/18 10:06) Other on edge Medications to take at Discharge Hydrocodone Bitart/Apap 5-325 [Everson 5/325] 1 tablet PO Q6H PRN PRN #10 tablet 10/18/17 Lidocaine/Prilocaine [Lidocaine-Prilocaine Cream] 30 gm TP DAILY PRN PRN #1 cream..g. 10/19/17 Fentanyl [Subsys] 100 mcg SL Q4H PRN PRN 06/04/18 Docusate Sodium [Colace] 100 mg PO PRN PRN 10/03/18 Acetaminophen [Tylenol] 325 mg PO PRN PRN 11/09/18 Aspirin/Acetaminophen/Caffeine [Excedrin Extra Strength Caplet] 2 tab PO PRN PRN 11/09/18 Ibuprofen [Motrin] 600 mg PO Q8H PRN PRN #30 tablet 11/13/18 Morphine Sulfate [Morphabond ER] 15 mg PO BID 12/11/18 Loperamide [Imodium] 2 mg PO Q2H PRN PRN 30 Days #30 cap 12/18/18 Omeprazole [Prilosec] 20 mg PO DAILY 12/21/18 Dexamethasone [Decadron] 4 mg PO Q6H #120 tablet 12/25/18 The following prescriptions were given: Dexamethasone [Decadron] 4 mg PO Q6H #120 tablet Primary Care Physician: Care Physician,No Primary [NON-STAFF] - Please follow up with your Primary Care Physician in: one week Test Results: Test results from this visit will be discussed in further detail at your follow- up appointment, if applicable. Please Follow Up With: Carolina Pak MD When: one week Please Follow Up With: Lauro Anderson MD When: 2 weeks; please call his office for an appointment When: follow up with palliative care as preferred Proposed Discharge Date: 12/25/18
[2018-12-25 12:28] LABS: Pathologist Review Reviewed
--- NOTE | 2018-12-25 12:38 | DS.PCM_ITS ---
Discharge Date and Diagnosis - Problem List Patient Problems: Active and Suspected Problems (Last Reviewed 12/21/18 @ 14:00 by Iglesia Mueller DO) Delirium (Acute) Leukocytosis (Acute) Encephalopathy acute (Acute) Date of Admission: 12/21/18 Date of Discharge: 12/25/18 - Primary Discharge Diagnosis Active and Suspected Problems (Last Reviewed 12/21/18 @ 14:00 by Iglesia Mueller DO) Delirium (Acute) Leukocytosis (Acute) Encephalopathy acute (Acute) - Secondary Discharge Diagnosis Chronic Problems (Last Reviewed 12/21/18 @ 14:00 by Iglesia Mueller DO) Anorexia (Chronic) Hypertension (Chronic) Encounter for monitoring cardiotoxic drug therapy (Chronic) Stage IV carcinoma of breast (Chronic) Anemia (Chronic) COPD (chronic obstructive pulmonary disease) (Chronic) Brain metastases (Chronic) Cerebral aneurysm (Chronic) Primary cancer of left female breast (Chronic) Regional lymph node metastasis present (Chronic) Bone metastases (Chronic) Hospital Course and Treatment Imaging Results: Diagnostic Data Chest X-Ray 12/21/18 10:09 IMPRESSION: The lungs are clear. Findings suggest bony metastasis. Electronically Signed: Edgar Flannery, at 11:01 EDT , Service support , Brain CT 12/21/18 10:10 IMPRESSION: The patient is known to have metastatic deposits in the cerebellum more prominent on the right side. Hydrocephalus. CT scan following intravenous contrast menstruation is recommended for further evaluation for better delineation of the metastatic deposits. Electronically Signed: Edgar Flannery, at 12:45 EDT , Service support , Brain MRI 12/21/18 14:48 IMPRESSION: Increasing size and number of innumerable metastatic mass lesions in both cerebellar hemispheres, brainstem and cerebral hemispheres as described above in detail. Electronically Signed: Siddharth Chacon MD at 13:38 EDT , Service support , Operations: None Procedures: None Summary of Care Provided: The patient is a 53 year old F who was admitted with a complaint of progressively worsening confusion over the last couple of days prior to admission. She had been very listless and lethargic with assisted incontinence and had fallen out for a couple of days prior to admission. She has been given a pain medications even while she was this confused. She had also recently started on new immunotherapy Kadycyla and and had also been on Neulasta she was admitted and managed for acute metabolic encephalopathy likely due to medications as well as an known brain metastasis from metastatic brain cancer. CT done showed hydrocephalus as well as multiple brain metastases and this was thought to look similar to previous scans. Patient and family did not want hospice and this had been discussed with him previously by her oncologist. They also wanted to be full code. Patient's pain medications were held and patient's mentation came back to normal. Pain medications were gradually resumed and patient tolerated this well. MRI showed increasing size and number of innumerable metastatic mass lesions in both cerebellar hemispheres, brainstem since cerebral hemispheres. Decadron was increased from 10 mg daily to 10 mg every 6 hours p.o. to help with vasogenic brain edema. She remained stable and was discharged home on 1418. Palate of care was consulted and reviewed patient. Patient and family wanted to go home and think about the services offered by palliative care before deciding whether to follow-up with them. She was given a prescription for Decadron 10 mg every 6 hours. She is to follow-up with her primary care doctor and oncologist. Patient was scheduled to have a cervical e pidural block by Dr. Anderson on 12/25/2018. However Dr. Rosenberg stated that due to patient's recent admission, he would want patient to recover from hospital admission and would want to reschedule procedure for about a couple of weeks after she left hospital. Patient is to follow-up with Dr. Anderson for epidural nerve block to be rescheduled. Patient seen and examined prior to discharge. She had no complaints and felt well. Review of systems otherwise negative. Labs and vitals reviewed. Home medication reviewed and reconciled. o/e: Vital Signs Height 5 ft 2 in Weight: 155 lb 15.985 oz Weight in Pounds 156.0 lbs BMI 25.3 Pulse Ox 97 Temperature 98.6 F Pulse Rate 52 Respiratory Rate 18 Blood Pressure 152/92 Blood Pressure Position Semi-Fowlers [] General: Alert, Oriented x3, Cooperative, No apparent distress HEENT: Atraumatic, PERRLA, EOMI, Normocephalic Oral: Moist Mucosa Neck: Supple, No JVD, Negative Carotid Bruits Lungs: Clear to auscultation, Normal air movement, No rhonchi, No wheeze, No rales Cardiovascular: Regular rate, Regular Rhythm, Normal S1, Normal S2, No murmurs Abdomen: Bowel Sounds Present, Soft, Non Tender, Non-Distended, No Hepato- splenomegaly Extremities: No clubbing, No cyanosis, No edema, Capillary Refill Less than 3 Seconds Skin: No rashes, No breakdown Musculoskeletal: No Tenderness to Palpation of Joints or Extremities Lymphatic: No Cervical, Supraclavicular, or Inguinal Adenopathy Neurological: Cranial nerves II-XII grossly intact, Neuro grossly intact, Motor Exam 5/5 strength throughout Psych/Mental Status: Normal Affect, Appropriate, Alert and oriented to time, place, person, mood and affect Plan as above. She received a script for a bedside commode, and tub bench and wheelchair. Patient Problems: Active and Suspected Problems (Last Reviewed 12/21/18 @ 14:00 by Iglesia Mueller DO) Delirium (Acute) Leukocytosis (Acute) Encephalopathy acute (Acute) - Physical Exam Vital Signs Temp Pulse Resp BP Pulse Ox 98.6 F 52 L 18 152/92 H 97 12/25/18 09:58 12/25/18 09:58 12/25/18 09:58 12/25/18 09:58 12/25/18 09:58 Oxygen Flow Rate (L/min) 2 Oxygen Delivery Method Room Air Weight: 155 lb 15.985 oz Body Mass Index (BMI) 28.5 Intake and Output for Last 24 Hours 12/23/18 12/24/18 12/25/18 23:59 23:59 23:59 Intake Total 1050 / 1050 840 / 840 300 / 300 Output Total 800 / 800 1100 / 1100 Balance 1050 / 1050 40 / 40 -800 / -800 Microbiology Past 72 Hours 12/21/18 11:30 Urine Culture - Final Urine, Catheterized Culture exhibits no growth. 12/21/18 10:35 Blood Culture - Preliminary Blood Culture (Wb) - Port No growth in 48 hours. Laboratory Tests Past 24 Hrs 12/21/18 12/22/18 12/25/18 10:35 06:00 05:15 WBC 54.2 H* RBC 3.90 L Hgb 12.1 Hct 37.7 MCV 96.7 MCH 31.0 MCHC 32.1 RDW 14.4 RDW Differential 50.6 H Plt Count 129 L MPV 9.8 Neut % (Auto) Not Reportable Absolute Neuts (auto) Not Reportable Total Counted 100 Neutrophils % (Manual) 64 Band Neutrophils % 28 H Lymphocytes % (Manual) 1 L Monocytes % (Manual) 5 Metamyelocytes % 1 Myelocytes % 1 H Diff Path Review Reviewed Reviewed Reviewed Toxic Granulation 1+ Platelet Estimate SLT DEC RBC Morphology NORM C+C Sodium Potassium Chloride Carbon Dioxide Anion Gap BUN Creatinine Estim Creat Clear Calc Est GFR (MDRD) Af Amer Est GFR (MDRD) Non-Af BUN/Creatinine Ratio Glucose Calcium 12/25/18 05:15 WBC RBC Hgb Hct MCV MCH MCHC RDW RDW Differential Plt Count MPV Neut % (Auto) Absolute Neuts (auto) Total Counted Neutrophils % (Manual) Band Neutrophils % Lymphocytes % (Manual) Monocytes % (Manual) Metamyelocytes % Myelocytes % Diff Path Review Toxic Granulation Platelet Estimate RBC Morphology Sodium 142 Potassium 4.0 Chloride 106 Carbon Dioxide 29.0 Anion Gap 7 BUN 15 Creatinine 0.62 Estim Creat Clear Calc 84.90 Est GFR (MDRD) Af Amer 129 Est GFR (MDRD) Non-Af 107 BUN/Creatinine Ratio 24.0 H Glucose 122 H Calcium 8.8 Discharge Diet: No Restrictions Discharge Activity: Return to Normal Activity Weight Bearing Status: Weight bearing as tolerated Call your doctor if you observe: Fever of 101 or Higher, Shortness of breath Home Medications: Medications to take at Discharge Hydrocodone Bitart/Apap 5-325 [[place] 5/325] 1 tablet PO Q6H PRN PRN #10 tablet 10/18/17 Lidocaine/Prilocaine [Lidocaine-Prilocaine Cream] 30 gm TP DAILY PRN PRN #1 cream..g. 10/19/17 Fentanyl [Subsys] 100 mcg SL Q4H PRN PRN 06/04/18 Docusate Sodium [Colace] 100 mg PO PRN PRN 10/03/18 Acetaminophen [Tylenol] 325 mg PO PRN PRN 11/09/18 Aspirin/Acetaminophen/Caffeine [Excedrin Extra Strength Caplet] 2 tab PO PRN PRN 11/09/18 Ibuprofen [Motrin] 600 mg PO Q8H PRN PRN #30 tablet 11/13/18 Morphine Sulfate [Morphabond ER] 15 mg PO BID 12/11/18 Loperamide [Imodium] 2 mg PO Q2H PRN PRN 30 Days #30 cap 12/18/18 Omeprazole [Prilosec] 20 mg PO DAILY 12/21/18 Dexamethasone [Decadron] 4 mg PO Q6H #120 tablet 12/25/18 Following Prescrptions Were Given to Patient: Dexamethasone [Decadron] 4 mg PO Q6H #120 tablet Primary Care Physician: Care Physician,No Primary [NON-STAFF] - Please follow up with your Primary Care Physician in: one week Please Follow Up With: Carolina Pak MD When: one week Please Follow Up With: Lauro Anderson MD When: 2 weeks; please call his office for an appointment When: follow up with palliative care as preferred Disposition: Home Minutes spent on discharge:: 45 Patient Condition:: Stable Medical Necessity - Tobacco Use Smoking Status: Former smoker Meaningful Use Info Meaningful Use Diagnoses (Choose all that apply): None applicable Code Visit Inpatient E&M: 99617 Disch Hosp
== END 2018-12-25 15:25 | disposition home or self-care (01) | DRG 812 ==
LOC: ED 13:36 → MS3 14:10
PROVIDERS: Emergency Provider Emergency Medicine; Family Provider Family Medicine; PCP Family Medicine; Visit Provider Student in an Organized Health Care Education/Training Program
DX: T40.601A Poisoning by unspecified narcotics, accidental (unintentional), initial encounter (principal); G92 Toxic encephalopathy; C79.51 Secondary malignant neoplasm of bone; C79.31 Secondary malignant neoplasm of brain; Z17.0 Estrogen receptor positive status [ER+]; Z92.3 Personal history of irradiation; Z87.891 Personal history of nicotine dependence; I10 Essential (primary) hypertension; I67.1 Cerebral aneurysm, nonruptured; C79.2 Secondary malignant neoplasm of skin; G91.9 Hydrocephalus, unspecified; G89.4 Chronic pain syndrome; J44.9 Chronic obstructive pulmonary disease, unspecified; D64.9 Anemia, unspecified; C50.912 Malignant neoplasm of unspecified site of left female breast; C77.9 Secondary and unspecified malignant neoplasm of lymph node, unspecified; G93.6 Cerebral edema
CPT/HCPCS: 36415; 36591; 70450; 70553; 71045; 80048; 80053; 81001; 83605; 85025; 85610; 85730; 87040; 87086; 87804; 93005; 96360; 96361; 96367; 96372; 96413; 96415; 97110; 97161; 97166; 97530; 97535; 97802; 99285; A9575; J2505; J7030; J7050; P9612; A4216; J2405; J3490; J9354

== ENCOUNTER 2018-12-26 12:21 | Emergency (ER) | payer MEDICAID, SELFPAY ==
[2018-05-15 10:11] VITALS: BMI 25.3
[2018-12-21 14:55] VITALS: BMI 28.5
[2018-12-26 12:25] VITALS: BP 151/100; PULSE 54; RESP 14; TEMP 36.1; O2SAT 96; BMI 26.9
--- NOTE | 2018-12-26 12:46 | CT_ITS ---
STUDY: CT BRAIN WITHOUT CONTRAST REASON FOR EXAM: Female, 53 years old. Altered mental status. History of the metastatic deposits in the brain due to breast cancer. RADIATION DOSAGE (If Supplied By Facility): CTDIvol = ( 44.99 ) mGy, DLP = ( 779.24 ) mGycm TECHNIQUE: Transaxial CT imaging of the brain was performed without administration of intravenous contrast material. Individualized dose optimization techniques were used for this CT. COMPARISON: Comparison is made with prior study December 21, 2018. FINDINGS: Normal soft tissue structures. Normal calvarium. There is evidence of hydrocephalus. This is unchanged. There is evidence of a subarachnoid hemorrhage as well as hematoma within the corpus callosum. 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 Normal basal ganglia and thalami. Normal brainstem. Punctate calcifications are seen in the cerebellar hemispheres bilaterally. Patient is known to have bilateral cerebral metastasis. There are no findings of an acute ischemic infarction. Normal visualized paranasal sinuses. CT/Brain/Head without Contrast IMPRESSION: Subarachnoid hemorrhage and hematoma in the corpus callosum. Hydrocephalus. N.B. : The above information has been verbally conveyed by Edgar Flannery to Berhane Mason MD, on 12/26/2018 13:47:24 (ET). Electronically Signed: Edgar Flannery, at 13:48 EDT , Service support ,
--- NOTE | 2018-12-26 12:46 | EKG12_ITS ---
Test Reason : MENTAL STATUS Blood Pressure : / mmHG Vent. Rate : 052 BPM Atrial Rate : 052 BPM P-R Int : 122 ms QRS Dur : 084 ms QT Int : 428 ms P-R-T Axes : 048 067 073 degrees QTc Int : 398 ms Sinus bradycardia Otherwise normal ECG Confirmed by ALEXIS DUMONT, DIOGO ([id number]), script editor MATT CARLOS ([id number]) on 12/28/2018 11:04:30 AM Referred By: Bran Granados Confirmed By:DIOGO ESPINOZA MD
[2018-12-26] MEDS: 0.9% Normal Saline 1,000 ML IV.SOLN. 1000 ML IV (13:22)
[2018-12-26 13:23] VITALS: BP 167/97; PULSE 52; PULSE 54; RESP 14; RESP 16; TEMP 36.9; O2SAT 96; O2SAT 97
--- NOTE | 2018-12-26 13:30 | ED.RN ---
lab called to report lactic acid 2.4. dr. roberts notified.
--- NOTE | 2018-12-26 13:40 | RAD_ITS ---
STUDY: X-RAY CHEST REASON FOR EXAM: Female, 53 years old. Altered mental status. Metastatic breast cancer. TECHNIQUE: Single AP portable view of the chest. COMPARISON: Comparison is made with prior study dated December 21, 2018. FINDINGS: A right-sided portacatheter is seen with the tip at the junction of the superior vena cava and right atrium. EKG electrodes are seen. The lungs are clear and expanded. There is no demonstrated pleural abnormality. Normal size heart. Normal mediastinum and anjel. Normal visualized pulmonary arteries. There is atherosclerotic tortuosity of the aortic arch and descending thoracic aorta. Normal visualized thoracic spine. Normal visualized ribs, clavicles, and shoulders. There is no demonstrated abnormality of the visualized soft tissue structures of the upper abdomen. RAD/Chest 1 View (Portable) IMPRESSION: No acute abnormality is seen. Electronically Signed: Edgar Flannery, at 13:55 EDT , Service support ,
[2018-12-26 13:51] LABS: Prothrombin Time (Protime)PT. 12.5 SECONDS (11.7-14.9)
[2018-12-26 13:52] LABS: Hemoglobin 13.1 g/dl (12.0-15.0); Mean Corpuscular Hgb 30.5 pg (27.0-32.0); Mean Corpuscular Volume 95.3 fL (81-99); Partial Thromboplast Time 24.9 Seconds (24.1-36.2); Platelet Count 135 K/mm3 (150-450); RBC Distribution Width SD 46.8 fl (35.1-43.9); White Blood Count 46.3 K/mm3 (4.4-11.0)
[2018-12-26 13:54] LABS: Differential Indicated MANUAL DIFF; POSITIVE COUNT YES; POSITIVE DIFFERENTIAL YES; POSITIVE MORPHOLOGY YES
--- NOTE | 2018-12-26 13:55 | NURSING ---
CALLED [facility] FOR TRANSFER.
[2018-12-26 14:01] LABS: ALB/GLOB Ratio 0.9 RATIO (0.9-2.4); AST(SGOT) 36 U/L (15-37); Alanine Aminotransfer ALT/SGPT 33 U/L (13-56); Albumin, Serum 3.3 g/dL (3.2-5.0); Alkaline Phosphatase 208 U/L (45-117); Anion Gap 9 (5-15); BUN 16 mg/dL (7-18); BUN/Creat Ratio 24.7 RATIO (10-20); Calcium,Total 8.8 mg/dL (8.5-10.1); Chloride 103 mmol/L (98-107); Creatinine, Serum 0.65 mg/dL (0.55-1.02); EST Glomerular Filtration Rate 102 mL/min (>60); Est Glom Filt Rate - Afr Amer 124 mL/min (>60); Estimated Creatinine Clearance 80.98 ml/min; Globulin 3.5 g/dL (2.2-4.2); Glucose 105 mg/dL (74-106); Potassium 3.9 mmol/L (3.5-5.1); Protein, Total 6.8 g/dL (6.4-8.2); Sodium Level 140 mmol/L (136-145)
[2018-12-26 14:06] LABS: Lactic Acid 2.4 mmol/L (0.4-2.0)
[2018-12-26 14:14] LABS: Hypersegmented Neutrophils RARE; Lymphocyte 2 % (19-41); Metamyelocyte 4 % (0-1); Monocyte 1 % (0-10); Neutrophil-Band 3 % (0-5); Neutrophil-Segmented 90 % (47-70); Nucleated Red Bld Cells,Manual 1 % (0-5); Platelet Estimate ADEQUATE (ADEQ); Red Cell Morphology NORM C+C NORMAL (NORM C&C); Total Cells Counted 100 (MANUAL DIFF)
[2018-12-26 14:15] LABS: Absolute Lymphocyte Count 0.92 X10^3/ul (0.83-4.51); Absolute Neutrophil Count 43.1 X10^3/uL (2.0-7.7); Lymphocyte # 0.92 X10^3/ul (4.0); Neutrophil # 43.05 X10^3/uL (2.7-7.7)
--- NOTE | 2018-12-26 14:27 | NURSING ---
dr ellen terry
--- NOTE | 2018-12-26 14:35 | ED.VISSUMM ---
- ER Visit Summary Date of Service: 12/26/18 Chief Complaint: Altered mental status History of Present Illness: The patient is a 53 F who presents today with altered mental status. Patient has a history of breast cancer with metastatic disease including metastases to her brain. She is full code and undergoing chemotherapy. She was recently admitted for altered mental status, and according to the family it was attributed to her medications. She was discharged yesterday. She was compliant with her medications and had pain medication around 6:30 AM today. Shortly after that she became weak and slightly lethargic. She was also slightly confused. This was an abrupt change from how she had been since discharge. No other complaints. No injuries. No other change in her medications. Physical Examination: Afebrile and vital signs unremarkable. Patient is somnolent but arouses to voice. She is oriented to person and place only. No focal or lateralizing neurologic abnormalities. Head and neck are atraumatic. Neck is nontender. Heart regular. Lungs clear. Abdomen soft and nontender. Skin appears unremarkable. Test Results: Sepsis workup was initiated. I also ordered a CAT scan of her brain. Workup was remarkable for a leukocytosis of 46,000. She had a lactate of 2.4. Brain CT showed subarachnoid hemorrhage with also a hematoma in her corpus callosum. Coags were normal. The remainder of her workup is pending at this time. Emergency Department Course and Treatment: Patient presents with confusion. I was concerned for sepsis versus metastatic disease versus medication side effects versus RELAY MAN pathology. Workup quickly showed a subarachnoid hemorrhage with corpus callosum hematoma. I spoke with radiology who felt that this was probably related to her anterior communicating artery area aneurysm. Patient had been aware of this aneurysm. It was reimaged about a month ago when I saw her in the emergency department. It was discussed with neurosurgery at [facility], and they advised outpatient follow-up. According to the patient and her , she had not followed up. Patient is not currently on blood thinners. She did take aspirin in the past but she has not had any for many days. Neurosurgery is not available at this facility. Patient requested [facility]. We paged [facility] for transfer. I did speak with Dr. Driscoll who will accept the patient. Patient will be transferred to the emergency department. Dr. Zhou who accepted the patient to the ED for holding. On reevaluation, the patient is stable. She is alert. No new or worsening symptoms. Patient will be transferred. Treatment Plan: As above Disposition: Transfer to [facility] Impression: 1. Subarachnoid hemorrhage 2. Breast cancer with metastatic disease This note was generated with [employer] dictation software. It may contain incorrect words, spelling, and punctuation that were not noted in review of the chart prior to signing ED Disposition - Plan for ED Patient: Referrals: Eric Granados III, MD [Primary Care Provider] -
--- NOTE | 2018-12-26 14:41 | ED.DCSUM_ITS ---
- ER Visit Summary Date of Service: 12/26/18 Chief Complaint: Altered mental status History of Present Illness: The patient is a 53 F who presents today with altered mental status. Patient has a history of breast cancer with metastatic disease including metastases to her brain. She is full code and undergoing chemotherapy. She was recently admitted for altered mental status, and according to the family it was attributed to her medications. She was discharged yesterday. She was compliant with her medications and had pain medication around 6:30 AM today. Shortly after that she became weak and slightly lethargic. She was also slightly confused. This was an abrupt change from how she had been since discharge. No other complaints. No injuries. No other change in her medications. Physical Examination: Afebrile and vital signs unremarkable. Patient is somnolent but arouses to voice. She is oriented to person and place only. No focal or lateralizing neurologic abnormalities. Head and neck are atraumatic. Neck is nontender. Heart regular. Lungs clear. Abdomen soft and nontender. Skin appears unremarkable. Test Results: Sepsis workup was initiated. I also ordered a CAT scan of her brain. Workup was remarkable for a leukocytosis of 46,000. She had a lactate of 2.4. Brain CT showed subarachnoid hemorrhage with also a hematoma in her corpus callosum. Coags were normal. The remainder of her workup is pending at this time. Emergency Department Course and Treatment: Patient presents with confusion. I was concerned for sepsis versus metastatic disease versus medication side effects versus DEWER pathology. Workup quickly showed a subarachnoid hemorrhage with corpus callosum hematoma. I spoke with radiology who felt that this was probably related to her anterior communicating artery area aneurysm. Patient had been aware of this aneurysm. It was reimaged about a month ago when I saw her in the emergency department. It was discussed with neurosurgery at [facility], and they advised outpatient follow-up. According to the patient and her , she had not followed up. Patient is not currently on blood thinners. She did take aspirin in the past but she has not had any for many days. Neurosurgery is not available at this facility. Patient requested [facility]. We paged [facility] for transfer. I did speak with Dr. Driscoll who will accept the patient. Patient will be transferred to the emergency department. Dr. Zhou who accepted the patient to the ED for holding. On reevaluation, the patient is stable. She is alert. No new or worsening symptoms. Patient will be transferred. Treatment Plan: As above Disposition: Transfer to [facility] Impression: 1. Subarachnoid hemorrhage 2. Breast cancer with metastatic disease This note was generated with [employer] dictation software. It may contain incorrect words, spelling, and punctuation that were not noted in review of the chart alejandra or to signing ED Disposition - Plan for ED Patient: Referrals: Eric Granados III, MD [Primary Care Provider] -
[2018-12-26 14:48] VITALS: BP 163/87; PULSE 53; RESP 15; O2SAT 99
[2018-12-26 15:03] VITALS: BP 163/87; PULSE 45; PULSE 49; RESP 13; O2SAT 98
[2018-12-26 17:33] LABS: Reflex Lactate? Y
[2018-12-27 11:21] LABS: Pathologist Review Reviewed
== END 2018-12-26 15:11 | disposition home or self-care (01) ==
LOC: ED 14:09
PROVIDERS: Emergency Provider Emergency Medicine; Family Provider Family Medicine; PCP Family Medicine
DX: I60.9 Nontraumatic subarachnoid hemorrhage, unspecified (principal); I10 Essential (primary) hypertension; R40.4 Transient alteration of awareness; C50.919 Malignant neoplasm of unspecified site of unspecified female breast; C79.31 Secondary malignant neoplasm of brain; J44.9 Chronic obstructive pulmonary disease, unspecified; D64.9 Anemia, unspecified; R41.0 Disorientation, unspecified; Z79.899 Other long term (current) drug therapy; Z87.891 Personal history of nicotine dependence
CPT/HCPCS: 36591; 70450; 71045; 80053; 83605; 84484; 85025; 85610; 85730; 87040; 93005; 96360; 96361; 99285; J7030; A4216